=== PATIENT | female | born 1955 | race Caucasian/White ===

== ENCOUNTER 2019-09-01 15:09 | Inpatient (IN) | payer BC, MEDICARE ==
--- NOTE | 2019-09-01 15:35 | ED ---
General Adult HPI - General Chief complaint: Recheck/Abnormal Lab/Rx Stated complaint: Kidney Failure Transfer from [facility] Time Seen by Provider: 09/01/19 15:15 Source: patient, EMS Mode of arrival: EMS Limitations: no limitations - History of Present Illness Initial comments: Dictation was produced using [employer] dictation software. please excuse any grammatical, word or spelling errors. This patient was cared for during a federal and state declared state of emergency secondary to Covid 19 Chief Complaint: 64-year-old female transferred from [facility] emergency room for higher level of care. History of Present Illness: She is 64-year-old female she has past medical history of diabetes, coronary artery disease, hypertension. She presents today with abnormal labs. Patient story begins on Wednesday. She went to go visit her primary care physician for feelings of generalized weakness for the last several weeks. She had blood drawn out patiently on Wednesday. Today results were available. Patient's daughter received a phone call from the lab told her to seek medical attention immediately. She was told to go to the emergency department for concerns of kidney failure. Patient has had kidney failure in the past. She was told that perhaps it was secondary to her diabetes. Patient is not taking insulin. She takes oral medications to control her diabetes. Patient states she's been feeling weak. She denies any numbness testing or paresthesias to the extremities. She denies any focal weakness. She has no pain complaints. Patient reports that she was told that she was acting confused on multiple occasions. Patient's abnormal labs showed a creatinine of 6.1 and a BUN of 95. The ROS documented in this emergency department record has been reviewed and confirmed by me. Those systems with pertinent positive or negative responses have been documented in the HPI. All other systems are other negative and/or noncontributory. PHYSICAL EXAM: General Impression: Alert and oriented x3, not in acute distress HEENT: Normocephalic atraumatic, extra-ocular movements intact, pupils equal and reactive to light bilaterally, dry mucous membranes Cardiovascular: Heart regular rate and rhythm Chest: Able to complete full sentences, no retractions, no tachypnea Abdomen: abdomen soft, non-tender, non-distended, no organomegaly Musculoskeletal: Pulses present and equal in all extremities, no peripheral edema Motor: no focal deficits noted Neurological: CN II-XII grossly intact, no focal motor or sensory deficits noted Skin: Intact with no visualized rashes Psych: Normal affect and mood ED course: 64-year-old female presents with EMS from [facility] emergency room as a transfer for acute kidney injury. According to Dr. Mccann who received report from [facility] emergency room they had difficulty obtaining IV axis. A proceeded to place a right internal jugular central venous catheter. Chart review was performed. Does not appear that an x-ray was performed to confirm placement. EMS also reports that while en route to the emergency department patient was having low measuring blood pressures. Chart review shows a patient in 2014 was admitted for acute renal failure. Discharge summary reports that patient had acute kidney injury secondary to rand inhibitors and diuretics. At that time she did have severe hyperkalemia. Discussed patient case with Dr. Montalvo spa consultant for nephrology. Labs and patient presentation discussed with nephrology. He requests that in light of her lab abnormalities that she be started on sodium bicarbonate drip. Patient's blood pressures were trended and emergency department found to be stable. Patient be a admitted to [facility] group pending discussion with on-call hospitalist. Nephrology will be consulted. EKG interpretation: Ventricular rate 99, sinus bradycardia, DE interval 172, QRS 96, QTC 469. No DE prolongation, no QTC prolongation, no ST or T-wave changes noted. EKG compared to 09/19/2015 showing no changes. Overall, this EKG is unremarkable - Related Data Home Medications Medication Instructions Recorded Confirmed ALPRAZolam [Xanax] 0.25 mg PO BID PRN 05/07/14 09/01/19 DULoxetine HCL [Cymbalta] 60 mg PO HS 05/07/14 09/01/19 Losartan Potassium 100 mg PO DAILY 05/07/14 09/01/19 Multivitamins, Thera [Multivitamin 1 tab PO DAILY 05/07/14 09/01/19 (formulary)] Zolpidem [Ambien] 10 mg PO HS PRN 05/07/14 09/01/19 amLODIPine [Norvasc] 10 mg PO DAILY 05/07/14 09/01/19 Aspirin EC [Ecotrin] 81 mg PO DAILY 09/19/15 09/01/19 DULoxetine HCL [Cymbalta] 30 mg PO DAILY 09/01/19 09/01/19 Furosemide [Lasix] 20 mg PO DAILY 09/01/19 09/01/19 Gabapentin [Neurontin] 300 mg PO DAILY 09/01/19 09/01/19 Magnesium Oxide [Day] 500 mg PO DAILY 09/01/19 09/01/19 Metoprolol Succinate [Toprol XL] 200 mg PO DAILY 09/01/19 09/01/19 Pioglitazone [Actos] 30 mg PO HS 09/01/19 09/01/19 Rosuvastatin Calcium 10 mg PO HS 09/01/19 09/01/19 Allergies Allergy/AdvReac Type Severity Reaction Status Date / Time captopril Allergy Cough Verified 09/01/19 16:36 cephalexin monohydrate Allergy Rash/Hives Verified 09/01/19 16:36 [From Keflex] Penicillins Allergy Rash/Hives Verified 09/01/19 16:36 Review of Systems ROS Statement: Those systems with pertinent positive or pertinent negative responses have been documented in the HPI. ROS Other: All systems not noted in ROS Statement are negative. Past Medical History Past Medical History: Coronary Artery Disease (CAD), CVA/TIA, Diabetes Mellitus, GERD/Reflux, Hypertension Additional Past Medical History / Comment(s): cva 2011, arthritis, polyps, high heart ratte at times with short bursts of V tach History of Any Multi-Drug Resistant Organisms: None Reported Additional Past Surgical History / Comment(s): carotid endarct, Lumpectomy right breast, Carpel Tunnel Surgery bilat wrists, pyleonitis cyst removal, vericose vein removal Past Anesthesia/Blood Transfusion Reactions: Previous Problems w/ Anesthesia Additional Past Anesthesia/Blood Transfusion Reaction / Comment(s): had trouble waking up after surgery Past Psychological History: Anxiety Smoking Status: Former smoker Past Alcohol Use History: Occasional Past Drug Use History: None Reported - Past Family History Daughter(s) Additional Family Medical History / Comment(s): fast heart rate General Exam Limitations: no limitations Course Vital Signs 09/01/19 09/01/19 09/01/19 15:23 16:29 16:43 Temperature 97.7 F Pulse Rate 50 L 50 L 48 L Respiratory 16 18 18 Rate Blood Pressure 109/60 110/78 119/69 O2 Sat by Pulse 98 Oximetry 09/01/19 16:44 Temperature Pulse Rate Respiratory 18 Rate Blood Pressure O2 Sat by Pulse Oximetry Medical Decision Making - Lab Data Result diagrams: 09/01/19 16:42 09/01/19 16:42 Lab Results 09/01/19 09/01/19 09/01/19 Range/Units 16:42 16:42 16:42 WBC 4.1 (3.8-10.6) k/uL RBC 3.30 L (3.80-5.40) m/uL Hgb 9.4 L (11.4-16.0) gm/dL Hct 28.7 L (34.0-46.0) % MCV 86.9 (80.0-100.0) fL MCH 28.3 (25.0-35.0) pg MCHC 32.6 (31.0-37.0) g/dL RDW 14.2 (11.5-15.5) % Plt Count 201 (150-450) k/uL Neutrophils % 66 % Lymphocytes % 22 % Monocytes % 6 % Eosinophils % 3 % Basophils % 1 % Neutrophils # 2.7 (1.3-7.7) k/uL Lymphocytes # 0.9 L (1.0-4.8) k/uL Monocytes # 0.2 (0-1.0) k/uL Eosinophils # 0.1 (0-0.7) k/uL Basophils # 0.0 (0-0.2) k/uL PT 9.5 (9.0-12.0) sec INR 0.9 (<1.2) APTT 19.4 L (22.0-30.0) sec Sodium 134 L (137-145) mmol/L Potassium 4.8 (3.5-5.1) mmol/L Chloride 103 (98-107) mmol/L Carbon Dioxide 17 L (22-30) mmol/L Anion Gap 14 mmol/L BUN 95 H (7-17) mg/dL Creatinine 5.74 H (0.52-1.04) mg/dL Est GFR (CKD-EPI)AfAm 8 (>60 ml/min/1.73 sqM) Est GFR (CKD-EPI)NonAf 7 (>60 ml/min/1.73 sqM) Glucose 100 H (74-99) mg/dL Calcium 6.9 L (8.4-10.2) mg/dL Phosphorus 11.1 H* (2.5-4.5) mg/dL Magnesium 1.3 L (1.6-2.3) mg/dL Ammonia (<30) umol/L TSH 1.010 (0.465-4.680) mIU/L 09/01/19 Range/Units 16:42 WBC (3.8-10.6) k/uL RBC (3.80-5.40) m/uL Hgb (11.4-16.0) gm/dL Hct (34.0-46.0) % MCV (80.0-100.0) fL MCH (25.0-35.0) pg MCHC (31.0-37.0) g/dL RDW (11.5-15.5) % Plt Count (150-450) k/uL Neutrophils % % Lymphocytes % % Monocytes % % Eosinophils % % Basophils % % Neutrophils # (1.3-7.7) k/uL Lymphocytes # (1.0-4.8) k/uL Monocytes # (0-1.0) k/uL Eosinophils # (0-0.7) k/uL Basophils # (0-0.2) k/uL PT (9.0-12.0) sec INR (<1.2) APTT (22.0-30.0) sec Sodium (137-145) mmol/L Potassium (3.5-5.1) mmol/L Chloride (98-107) mmol/L Carbon Dioxide (22-30) mmol/L Anion Gap mmol/L BUN (7-17) mg/dL Creatinine (0.52-1.04) mg/dL Est GFR (CKD-EPI)AfAm (>60 ml/min/1.73 sqM) Est GFR (CKD-EPI)NonAf (>60 ml/min/1.73 sqM) Glucose (74-99) mg/dL Calcium (8.4-10.2) mg/dL Phosphorus (2.5-4.5) mg/dL Magnesium (1.6-2.3) mg/dL Ammonia <9 (<30) umol/L TSH (0.465-4.680) mIU/L Disposition Clinical Impression: ISABEL (acute kidney injury) Disposition: ADMITTED IP TO THIS HOSP Condition: Fair Referrals: Kristy Ortega MD [Primary Care Provider] - 1-2 days Decision Time: 18:13
[2019-09-01] MEDS ORDERED: SODIUM CHLORIDE 0.9% 1,000 ML IV STA (15:48)
--- NOTE | 2019-09-01 16:09 | CT ---
EXAMINATION TYPE: CT brain wo con DATE OF EXAM: 09/01/2019 COMPARISON: None HISTORY: ams CT DLP: 1076.[address] of the brain was performed. The ventricles, basal cisterns and sulci overlying the cerebral convexities demonstrate mild enlargem ent. There is no evidence for intracranial hemorrhage or sulcal effacement. There is decreased attenuation about the periventricular white matter and deep white matter of both c erebral hemispheres, compatible with chronic small vessel ischemia. Differential diagnosis does inclu de demyelination. No mass effects are seen.No midline shift. Osseous calvarium is intact. If symptoms persist consider MRI. IMPRESSION: 1. Age related atrophic and chronic small vessel ischemic change without acute intracranial process s een at this time.
--- NOTE | 2019-09-01 16:12 | XR ---
EXAMINATION TYPE: XR chest 1V portable DATE OF EXAM: 09/01/2019 HISTORY: Shortness of breath. COMPARISON: 05/08/2014 TECHNIQUE: Single view of the chest is submitted. FINDINGS: Demonstrated are scattered senescent parenchymal change. Right IJ central venous line with its distal tip overlying the SVC. No evidence for pneumothorax. There is no evidence for focal infiltrate. The heart is stable. Hilar and mediastinal structures are within normal limits. Degenerative changes are seen of the dorsal spine. IMPRESSION: 1. Chronic changes without evidence for acute pulmonary disease.
[2019-09-01 16:50] LABS: Basophils % (A) 1 %; Eosinophils # (A) 0.1 k/uL (0-0.7); Eosinophils % (A) 3 %; HCT 28.7 % (34.0-46.0); HGB 9.4 gm/dL (11.4-16.0); Lymphocytes # (A) 0.9 k/uL (1.0-4.8); Lymphocytes % (A) 22 %; MCH 28.3 pg (25.0-35.0); MCHC 32.6 g/dL (31.0-37.0); MCV 86.9 fL (80.0-100.0); Mean Platelet Volume 8.2; Monocytes # (A) 0.2 k/uL (0-1.0); Monocytes % (A) 6 %; Neutrophils # (A) 2.7 k/uL (1.3-7.7); Neutrophils % (A) 66 %; Platelet Count 201 k/uL (150-450); RDW 14.2 % (11.5-15.5); WBC 4.1 k/uL (3.8-10.6)
[2019-09-01 17:01] LABS: Calcium 6.9 mg/dL (8.4-10.2); Magnesium 1.3 mg/dL (1.6-2.3); Potassium 4.8 mmol/L (3.5-5.1)
[2019-09-01 17:05] LABS: Phosphorus 11.1 mg/dL (2.5-4.5)
[2019-09-01 17:07] LABS: INR 0.9 (<1.2); Prothrombin Time 9.5 sec (9.0-12.0)
[2019-09-01 17:14] LABS: Partial Thromboplastin Time 19.4 sec (22.0-30.0)
[2019-09-01] MEDS ORDERED: CALCIUM CARBONATE 500 MG CHEWABLE PO STA (17:30)
[2019-09-01] MEDS ORDERED: MAGNESIUM OXIDE 400 MG TAB PO STA (17:31)
[2019-09-01] MEDS ORDERED: DEXTROSE 5% IN WATER 1,000 ML with SODIUM BICARB (1 MEQ/ML) 150 ML IV ONE (18:00)
[2019-09-01] MEDS ORDERED: ACETAMINOPHEN TAB 325 MG TAB PO PRN (18:13)
[2019-09-01] MEDS ORDERED: ONDANSETRON 4 MG/2 ML VIAL IVP PRN (18:13)
[2019-09-01] MEDS ORDERED: NALOXONE 0.4 MG/ML 1 ML VIAL IV PRN (18:13)
[2019-09-01] MEDS ORDERED: ALPRAZolam 0.25 MG TAB PO PRN (19:28)
--- NOTE | 2019-09-01 20:10 | HP ---
HISTORY AND PHYSICAL CHIEF COMPLAINT: Kidney failure. HISTORY OF PRESENT ILLNESS: This 64-year-old woman with a past medical history of multiple medical problems, including history of CAD, CVA, TIA, diabetes mellitus, GERD, hypertension, history of arthritis, history of carotid endarterectomy, history of anxiety, being followed by Dr. Kristy Ortega in the outpatient setting, was not taking medication for the last several days. Patient apparently was taking only Ambien. The patient also was confused and having hallucinations. Patient also complained of generalized weakness. Blood was drawn yesterday in the emergency room and the patient was found to have features of renal failure. The patient was referred to [facility] and admitted for further evaluation and treatment. The patient was previously admitted in 2015 with acute renal failure related to diuretics and NICOLE inhibitors also. There is no history of headache, loss of consciousness or seizures at this time. PAST MEDICAL HISTORY: History of CAD, history of CVA, TIA, diabetes mellitus, GERD, hypertension, history of carotid endarterectomy, history of anxiety. HOME MEDICATIONS: 1. Neurontin 300 mg p.o. daily. 2. Crestor 10 mg p.o. at bedtime. 3. Actos 30 mg at bedtime. 4. Toprol-XL 200 mg p.o. daily. 5. Lasix 20 mg p.o. daily. 6. Cymbalta 30 mg p.o. daily. 7. Ambien. 8. Multivitamins. 9. Magnesium oxide. 10.Losartan. 11.Cymbalta. 12.Norvasc. 13.Ecotrin. 14.Xanax. Doses are reviewed. ALLERGIES: CAPTOPRIL and KEFLEX and PENICILLIN. FAMILY HISTORY: History of fast heart rate in the family. SOCIAL HISTORY: Previous history of smoking. No current smoking or alcohol intake. REVIEW OF SYSTEMS: ENT: No diminished hearing. No diminished vision. CARDIOVASCULAR SYSTEM: As mentioned earlier. RESPIRATORY SYSTEM: As mentioned earlier. GI: No nausea, vomiting. : No dysuria or retention. NERVOUS SYSTEM: As mentioned earlier. ALLERGY/IMMUNOLOGY: No asthma, hayfever. MUSCULOSKELETAL: As mentioned earlier. HEMATOLOGY/ONCOLOGY: No history of anemia. ENDOCRINE: As mentioned earlier. CONSTITUTIONAL: As mentioned earlier. DERMATOLOGY: Negative. RHEUMATOLOGY: Negative. PSYCHIATRY: As mentioned earlier. PHYSICAL EXAMINATION: Patient alert and oriented x3. Pulse 51, blood pressure 159/67, respirations 16, temperature 97.4, pulse ox 100% on one liter. HEENT: Conjunctivae normal. Oral mucosa dry. NECK: No jugular venous distention. No carotid bruit. No lymph node enlargement. CARDIOVASCULAR SYSTEM: S1, S2 muffled. No S3. No S4. RESPIRATORY SYSTEM: Breath sounds diminished at the bases. A few scattered rhonchi. No crackles. ABDOMEN: Soft, non-tender. LEGS: Bilateral leg edema. NERVOUS SYSTEM: Higher functions as mentioned earlier. Moves all 4 limbs. No focal motor or sensory deficit. LYMPHATICS: No lymph node palpable in neck, axillae or groin. SKIN: No ulcer, rash, bleeding. JOINTS: No active deforming arthropathy. LABS: WBC 4.1, hemoglobin 9.4. Sodium 134, potassium 4.8, creatinine 5.74, glucose 100, calcium 6.9, phosphorus 11.1, magnesium 1.3. ASSESSMENT: 1. Acute renal failure with possible acute tubular necrosis and prerenal factors. 2. Hyponatremia. 3. Metabolic acidosis secondary to renal failure. 4. Hypocalcemia. 5. Hypophosphatemia. 6. Hypomagnesemia. 7. Anemia, normocytic. 8. History of noncompliance. 9. History of coronary artery disease. 10.History of cerebrovascular accident, transient ischemic attack. 11.Diabetes mellitus, type 2. 12.History of gastroesophageal reflux disease. 13.History of hypertension. 14.History of degenerative joint disease. 15.History of polyps. 16.History of tachycardia as well as a short burst of ventricular tachycardia. 17.History of carotid endarterectomy. 18.History of lumpectomy. 19.History of anxiety. 20.Remote history of nicotine dependence. 21.Obesity with body mass index of 33.9. 22.FULL CODE. RECOMMENDATIONS AND DISCUSSION: In this 64-year-old woman who presented with multiple complex medical issues, we will monitor the patient closely, continue the current medications, continue with symptomatic treatment. Will initiate home medications. Avoid nephrotoxic medications. Cautious IV fluids. Bicarb drip. Nephrology consultation. Monitor potassium closely. Monitor magnesium closely. Overall prognosis guarded because of multiple complex medical issues. Further recommendations to follow. A copy of this dictation is being forwarded to Dr. Kristy Ortega, who is the primary physician. We will hold the Lasix and losartan at this time. Further recommendations to follow. We will continue with Accu-Cheks before meals and at bedtime. Metoprolol will be continued. See orders for further details. MMODL / IJN: [id number] /
[2019-09-01 21:11] LABS: Glucose,Whole Blood 87 mg/dL (75-99)
[2019-09-01 22:16] LABS: Amorphous Sediment,Urine Occasional /hpf; Appearance,Urine Cloudy (Clear); Bacteria,Urine Rare /hpf; Bilirubin,Urine Negative (Negative); Blood,Urine Negative (Negative); Color,Urine Yellow; Glucose,Urine (UA) Negative (Negative); Ketones,Urine Negative (Negative); Leukocyte Esterase,Urine Moderate (Negative); Mucus,Urine Rare /hpf; Nitrite,Urine Negative (Negative); PH, Urine 5.5 (5.0-8.0); Protein,Urine 2+ (Negative); RBC,Urine 3 /hpf (0-5); Specific Gravity,Urine 1.013 (1.001-1.035); Squamous Epithelial Cell,Urine 5 /hpf (0-4); Urobilinogen,Urine <2.0 mg/dL (<2.0); WBC,Urine 3 /hpf (0-5)
[2019-09-02 06:14] LABS: Glucose,Whole Blood 125 mg/dL (75-99)
[2019-09-02] MEDS ORDERED: DEXTROSE 5% IN WATER 1,000 ML with SODIUM BICARB (1 MEQ/ML) 150 ML IV SCH (08:00)
[2019-09-02 08:37] LABS: Basophils % (A) 0 %; Eosinophils # (A) 0.1 k/uL (0-0.7); Eosinophils % (A) 2 %; HCT 28.2 % (34.0-46.0); HGB 9.2 gm/dL (11.4-16.0); Lymphocytes # (A) 0.9 k/uL (1.0-4.8); Lymphocytes % (A) 21 %; MCH 28.6 pg (25.0-35.0); MCHC 32.6 g/dL (31.0-37.0); MCV 87.6 fL (80.0-100.0); Mean Platelet Volume 8.2; Monocytes # (A) 0.3 k/uL (0-1.0); Monocytes % (A) 6 %; Neutrophils # (A) 2.9 k/uL (1.3-7.7); Neutrophils % (A) 69 %; Platelet Count 192 k/uL (150-450); RBC 3.22 m/uL (3.80-5.40); RDW 14.2 % (11.5-15.5); WBC 4.2 k/uL (3.8-10.6)
[2019-09-02 08:49] LABS: Calcium 7.1 mg/dL (8.4-10.2); Potassium 4.5 mmol/L (3.5-5.1)
--- NOTE | 2019-09-02 08:55 | P.NPCON ---
History of Present Illness - Reason for Consult acute renal failure - History of Present Illness Reason for consultation: Acute kidney injury History of present illness: Patient is a 64-year-old female seen in renal consultation for acute kidney injury. Patient's creatinine in September 2015 was 0.9. It was elevated at 5.74 on admission. Patient states she had blood work an outpatient and was advised by h primary care physician to go to the hospital due to renal failure. Patient states she has been voiding although she does have urgency. Denies hematuria or dysuria. Denies edema. Denies vomiting. Does admit to 1-2 loose bowel movements last few days. She denies regular use of nonsteroidals but states she takes quite a bit of Tylenol for pain. she was taking Lasix as well as losartan outpatient. Both of those are currently held. she was noted to be acidotic on admission with a bicarb level of 17. She is currently maintained on bicarb drip. Magnesium was low and was given oral magnesium oxide. Additionally her phosphorus was critically elevated at 11.1. 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 Vital signs are stable. General: The patient appeared well nourished and normally developed. HEENT: Head exam is unremarkable. Neck is without jugular venous distension. LUNGS: Lungs are clear to auscultation and percussion. Breath sounds decreased. HEART: Rate and Rhythm are regular. ABDOMEN: Soft, nontender. EXTREMITITES: No clubbing, cyanosis, or edema. Past Medical History Past Medical History: Coronary Artery Disease (CAD), CVA/TIA, Diabetes Mellitus, GERD/Reflux, Hypertension Additional Past Medical History / Comment(s): cva 2012, arthritis, polyps, high heart ratte at times with short bursts of V tach History of Any Multi-Drug Resistant Organisms: None Reported Additional Past Surgical History / Comment(s): carotid endarct, Lumpectomy right breast, Carpel Tunnel Surgery bilat wrists, pyleonitis cyst removal, vericose vein removal Past Anesthesia/Blood Transfusion Reactions: Previous Problems w/ Anesthesia Additional Past Anesthesia/Blood Transfusion Reaction / Comment(s): had trouble waking up after surgery Past Psychological History: Anxiety Smoking Status: Former smoker Past Alcohol Use History: Occasional Past Drug Use History: None Reported - Past Family History Daughter(s) Additional Family Medical History / Comment(s): fast heart rate Medications and Allergies Home Medications Medication Instructions Recorded Confirmed Type ALPRAZolam [Xanax] 0.25 mg PO BID PRN 05/07/14 09/01/19 History DULoxetine HCL [Cymbalta] 60 mg PO HS 05/07/14 09/01/19 History Losartan Potassium 100 mg PO DAILY 05/07/14 09/01/19 History Multivitamins, Thera [Multivitamin 1 tab PO DAILY 05/07/14 09/01/19 History (formulary)] Zolpidem [Ambien] 10 mg PO HS PRN 05/07/14 09/01/19 History amLODIPine [Norvasc] 10 mg PO DAILY 05/07/14 09/01/19 History Aspirin EC [Ecotrin] 81 mg PO DAILY 09/19/15 09/01/19 History DULoxetine HCL [Cymbalta] 30 mg PO DAILY 09/01/19 09/01/19 History Furosemide [Lasix] 20 mg PO DAILY 09/01/19 09/01/19 History Gabapentin [Neurontin] 300 mg PO DAILY 09/01/19 09/01/19 History Magnesium Oxide [Day] 500 mg PO DAILY 09/01/19 09/01/19 History Metoprolol Succinate [Toprol XL] 200 mg PO DAILY 09/01/19 09/01/19 History Pioglitazone [Actos] 30 mg PO HS 09/01/19 09/01/19 History Rosuvastatin Calcium 10 mg PO HS 09/01/19 09/01/19 History Allergies Allergy/AdvReac Type Severity Reaction Status Date / Time captopril Allergy Cough Verified 09/01/19 16:36 cephalexin monohydrate Allergy Rash/Hives Verified 09/01/19 16:36 [From Keflex] Penicillins Allergy Rash/Hives Verified 09/01/19 16:36 Physical Exam Vitals: Vital Signs Temp Pulse Pulse Resp BP BP Pulse Ox 09/02/19 04:00 97.6 F 53 L 20 115/57 97 09/02/19 00:00 97.5 F L 51 L 18 95/51 93 L 09/01/19 22:00 97.5 F L 50 L 20 140/66 100 09/01/19 21:00 98.2 F 51 L 18 117/78 97 09/01/19 18:54 97.5 F L 51 L 16 115/67 100 09/01/19 16:44 18 09/01/19 16:43 48 L 18 119/69 09/01/19 16:29 50 L 18 110/78 09/01/19 15:23 97.7 F 50 L 16 109/60 98 Intake and Output 09/01/19 09/02/19 09/02/19 22:59 06:59 14:59 Intake Total 240 240 Output Total 700 300 Balance -460 -60 Intake: Oral 240 240 Output: Urine 700 300 Other: # Voids 1 # Bowel Movements 1 Weight 101.151 kg 99.5 kg Results - Lab Results Most recent lab results Calcium 6.9 mg/dL (8.4-10.2) L 09/01/19 16:42 Phosphorus 11.1 mg/dL (2.5-4.5) H* 09/01/19 16:42 Magnesium 1.3 mg/dL (1.6-2.3) L 09/01/19 16:42 09/02/19 07:46 09/01/19 16:42 Assessment and Plan Plan: Assessment: 1. Acute kidney injury versus chronic kidney disease. Creatinine 5.74 on admission - 0.9 in September 2015. she does have proteinuria on UA. This is likely due to diabetic kidney disease. Rule out GN. 2. Metabolic acidosis secondary to acute kidney injury. 3. Hyperphosphatemia secondary to acute kidney injury. 4. Hypomagnesemia secondary to diuretic and GI losses. 5. Anemia of chronic kidney disease. Rule out iron deficiency. 6. Benign hypertension. Blood pressure on the lower side. Plan: Maintain bicarb drip for now. If acidosis improved, I will change to normal saline. Check renal ultrasound. Quantify proteinuria and check serologies. Add PhosLo with meals. Obtain records from PCP to assess baseline renal function. Continue to monitor renal function and urine output. Check iron studies. Hold amlodipine systolic blood pressure less than 120. Thank you for the consultation. I will continue to follow patient with you during her hospital stay.
--- NOTE | 2019-09-02 10:01 | US ---
EXAMINATION TYPE: US kidneys/renal and bladder DATE OF EXAM: 09/02/2019 COMPARISON: NONE CLINICAL HISTORY: isabel. ISABEL EXAM MEASUREMENTS: Right Kidney: 12.7 x 6.0 x 5.8 cm Left Kidney: 12.0 x 5.7 x 5.4 cm Right Kidney: perinephric fat noted Left Kidney: perinephric fat noted, cystic area lower pole = 1.4 x 1.0 x 1.1cm Bladder: not fully distended Bilateral Jets seen: no IMPRESSION: LEFT LOWER POLE RENAL CYST.
[2019-09-02] MEDS: MAGNESIUM OXIDE 400 MG TAB PO SCH (10:09)
[2019-09-02] MEDS: MULTIVITAMINS, THERA 1 EACH TAB PO SCH (10:10)
[2019-09-02] MEDS: ASPIRIN 81 MG PO SCH (10:10)
[2019-09-02] MEDS: PANTOPRAZOLE 40 MG/10 ML VIAL IV SCH (10:10)
[2019-09-02] MEDS: METOPROLOL SUCCINATE (ER) 100 MG TAB.ER.24H PO SCH (10:10)
[2019-09-02] MEDS: amLODIPine 10 MG TAB PO SCH (10:10)
[2019-09-02] MEDS ORDERED: Magnesium Replacement Protocol 1 EACH MISC MISCELLANE PRN ×2 (10:57→19:30)
[2019-09-02 11:33] LABS: Glucose,Whole Blood 179 mg/dL (75-99)
[2019-09-02] MEDS: SODIUM CHLORIDE 0.9% 1,000 ML IV SCH ×2 (12:52→23:22)
[2019-09-02] MEDS: CALCIUM ACETATE 667 MG TAB PO SCH ×2 (12:59→17:10)
[2019-09-02] MEDS: SODIUM BICARBONATE TAB 650 MG TAB PO SCH ×2 (12:59→21:00)
[2019-09-02 16:35] LABS: Glucose,Whole Blood 202 mg/dL (75-99)
[2019-09-02 17:15] LABS: Protein, Total 5.4 g/dL (6.2-8.2)
[2019-09-02 17:25] LABS: Ferritin 83.6 ng/mL (10.0-291.0)
[2019-09-02 17:33] LABS: % Iron Saturation 8.64 (12.00-45.00)
[2019-09-02 18:13] LABS: Hepatitis A Antibody IgM Non-Reactive (Non-Reactive); Hepatitis B Core IgM Non-Reactive (Non-Reactive); Hepatitis B Surface Antigen Non-Reactive (Non-Reactive); Hepatitis C IgG Antibody Non-Reactive (Non-Reactive)
[2019-09-02 20:06] LABS: Glucose,Whole Blood 140 mg/dL (75-99)
[2019-09-02] MEDS: MAGNESIUM SULFATE-D5W PMX 1 GM in DEXTROSE/WATER 1 100ML.BAG IVPB SCH ×3 (21:00→23:22)
--- NOTE | 2019-09-02 23:32 | PN ---
PROGRESS NOTE DATE OF SERVICE: 09/02/2019 This 64-year-old woman was admitted with acute renal failure and possible acute tubular necrosis, is being closely monitored. Dr. Montalvo is following the patient closely. Abdominal ultrasound was done which showed left lower pole renal cyst. The patient is on cautious IV fluids. Chronic kidney disease is a possibility. The creatinine was elevated previously. PAST MEDICAL HISTORY: Reviewed. PHYSICAL EXAMINATION: Patient is alert, oriented x3. Pulse 58, blood pressure 100/49, respiration 18, temp 97.9, pulse ox 94% on room air. HEENT: Conjunctivae normal. Oral mucosa moist. NECK: No jugular venous distention. No lymph node enlargement. CARDIOVASCULAR: S1, S2, muffled. No S3, no S4, RESPIRATORY: Diminished breath sounds at the bases. A few scattered rhonchi and crackles. ABDOMEN: Soft, nontender. LEGS: No edema, no swelling. NERVOUS SYSTEM: No focal deficits. LABS: WBC 4.2, hemoglobin 9.2, sodium 130, potassium 4.5, creatinine 5.03, calcium 7.1, magnesium 1.3. . REVIEW OF SYSTEMS: CARDIOVASCULAR: No angina. RESPIRATORY: As mentioned earlier. GI: As mentioned earlier. : No dysuria. NERVOUS SYSTEM: No numbness or weakness. CURRENT MEDICATIONS: 1. Tylenol p.r.n. 2. Xanax. 3. Norvasc. 4. Aspirin. 5. PhosLo. 6. Magnesium oxide. 7. Toprol-XL. 8. Multivitamins. 9. Narcan. 10.Zofran. 11.Protonix. Doses reviewed. ASSESSMENT: 1. Acute renal failure with possible acute tubular necrosis prerenal factors, rule out underlying chronic kidney disease. 2. Hyponatremia. 3. Metabolic acidosis secondary to renal failure. 4. Hypocalcemia. 5. Hypophosphatemia. 6. Hypomagnesemia. 7. Anemia, normocytic. 8. History of noncompliance. 9. History of coronary artery disease. 10.History of cerebrovascular accident and transient ischemic attack. 11.Diabetes type 2. 12.History of gastroesophageal reflux disease. 13.Hypertension. 14.History of degenerative joint disease. 15.History of polyps. 16.History of tachycardia as well as short bursts of ventricular tachycardia. 17.History of carotid endarterectomy. 18.History of lumpectomy. 19.History of anxiety. 20.Remote history of nicotine dependence. 21.Hypomagnesemia. 22.Obesity with body mass index of 33.9. 23.FULL CODE. RECOMMENDATIONS AND DISCUSSION: Recommend to continue current management and symptomatic treatment with IV fluids. Continue the rest of medication. Monitor labs and the creatinine yesterday was 5.7, today it is 5.03. We will check the phosphorus as well. Magnesium is persistent. Hepatitis panel is negative. The UA was noted, shows some amorphous sediment. I would recommend a urine culture and continue to monitor. Prognosis guarded because of multiple complex medical issues. Further recommendations to follow. The morning labs are ordered. MMODL / IJN: [id number] /
[2019-09-03 05:49] LABS: Protein/Creatinine Ratio,Urine 2.409
[2019-09-03 06:25] LABS: Glucose,Whole Blood 153 mg/dL (75-99)
[2019-09-03] MEDS: CALCIUM ACETATE 667 MG TAB PO SCH ×3 (06:50→16:51)
[2019-09-03 06:53] LABS: Basophils % (A) 0 %; Calcium 7.6 mg/dL (8.4-10.2); Eosinophils # (A) 0.1 k/uL (0-0.7); Eosinophils % (A) 2 %; HCT 27.1 % (34.0-46.0); HGB 8.9 gm/dL (11.4-16.0); Lymphocytes # (A) 0.9 k/uL (1.0-4.8); Lymphocytes % (A) 23 %; MCH 28.5 pg (25.0-35.0); MCHC 32.7 g/dL (31.0-37.0); MCV 87.1 fL (80.0-100.0); Mean Platelet Volume 8.3; Monocytes # (A) 0.3 k/uL (0-1.0); Monocytes % (A) 7 %; Neutrophils # (A) 2.6 k/uL (1.3-7.7); Neutrophils % (A) 65 %; Platelet Count 165 k/uL (150-450); Potassium 4.4 mmol/L (3.5-5.1); RBC 3.11 m/uL (3.80-5.40); RDW 14.1 % (11.5-15.5); Total Bilirubin 0.3 mg/dL (0.2-1.3); Total Protein 5.6 g/dL (6.3-8.2)
[2019-09-03] MEDS: ASPIRIN 81 MG PO SCH (08:13)
[2019-09-03] MEDS: amLODIPine 10 MG TAB PO SCH (08:13)
[2019-09-03] MEDS: PANTOPRAZOLE 40 MG/10 ML VIAL IV SCH (08:13)
[2019-09-03] MEDS: SODIUM BICARBONATE TAB 650 MG TAB PO SCH ×2 (08:13→21:25)
[2019-09-03] MEDS: MAGNESIUM OXIDE 400 MG TAB PO SCH (08:13)
[2019-09-03] MEDS: MULTIVITAMINS, THERA 1 EACH TAB PO SCH (08:13)
[2019-09-03] MEDS: METOPROLOL SUCCINATE (ER) 100 MG TAB.ER.24H PO SCH (08:13)
--- NOTE | 2019-09-03 08:51 | P.PN ---
Subjective Patient is seen in follow-up for acute kidney injury. Patient was last seen in the office in 2016 and at that time her creatinine was near 1. This admission creatinine was 5.74 and is down to 4.21 today. She is maintained on IV fluids. Oral intake is good. No nausea or vomiting. No edema. Vital signs are stable. General: The patient appeared well nourished and normally developed. HEENT: Head exam is unremarkable. Neck is without jugular venous distension. LUNGS: Lungs are clear to auscultation and percussion. Breath sounds decreased. HEART: Rate and Rhythm are regular. ABDOMEN: Soft, nontender. EXTREMITITES: No clubbing, cyanosis, or edema. Objective - Vital Signs Vital signs: Vital Signs Temp 97.5 F L 09/02/19 23:00 Pulse 55 L 09/02/19 23:00 Resp 18 09/02/19 23:00 BP 138/76 09/02/19 23:00 Pulse Ox 96 09/02/19 23:00 Intake & Output 09/02/19 09/03/19 09/03/19 18:59 06:59 18:59 Intake Total 837 240 Output Total 900 900 Balance -63 -660 Weight 100.2 kg Intake: Oral 837 240 Output: Urine 900 900 Other: # Voids 1 1 # Bowel Movements 1 1 - Labs CBC & Chem 7: 09/03/19 06:07 09/03/19 06:07 Labs: Abnormal Lab Results - Last 24 Hours (Table) 09/02/19 09/02/19 09/02/19 Range/Units 07:46 07:53 09:51 RBC (3.80-5.40) m/uL Hgb (11.4-16.0) gm/dL Hct (34.0-46.0) % Lymphocytes # (1.0-4.8) k/uL Carbon Dioxide 21 L (22-30) mmol/L BUN 94 H (7-17) mg/dL Creatinine 5.03 H (0.52-1.04) mg/dL Glucose 120 H (74-99) mg/dL POC Glucose (mg/dL) (75-99) mg/dL Calcium 7.1 L (8.4-10.2) mg/dL Magnesium (1.6-2.3) mg/dL Iron 28 L (50-170) ug/dL % Saturation 8.64 L (12.00-45.00) AST (14-36) U/L Total Protein (6.3-8.2) g/dL Total Protein (PEP) 5.4 L (6.2-8.2) g/dL Albumin (3.5-5.0) g/dL 09/02/19 09/02/19 09/02/19 Range/Units 09:51 11:31 16:34 RBC (3.80-5.40) m/uL Hgb (11.4-16.0) gm/dL Hct (34.0-46.0) % Lymphocytes # (1.0-4.8) k/uL Carbon Dioxide (22-30) mmol/L BUN (7-17) mg/dL Creatinine (0.52-1.04) mg/dL Glucose (74-99) mg/dL POC Glucose (mg/dL) 179 H 202 H (75-99) mg/dL Calcium (8.4-10.2) mg/dL Magnesium 1.3 L (1.6-2.3) mg/dL Iron (50-170) ug/dL % Saturation (12.00-45.00) AST (14-36) U/L Total Protein (6.3-8.2) g/dL Total Protein (PEP) (6.2-8.2) g/dL Albumin (3.5-5.0) g/dL 09/02/19 09/03/19 09/03/19 Range/Units 20:04 06:07 06:07 RBC 3.11 L (3.80-5.40) m/uL Hgb 8.9 L (11.4-16.0) gm/dL Hct 27.1 L (34.0-46.0) % Lymphocytes # 0.9 L (1.0-4.8) k/uL Carbon Dioxide (22-30) mmol/L BUN 82 H (7-17) mg/dL Creatinine 4.21 H (0.52-1.04) mg/dL Glucose 144 H (74-99) mg/dL POC Glucose (mg/dL) 140 H (75-99) mg/dL Calcium 7.6 L (8.4-10.2) mg/dL Magnesium (1.6-2.3) mg/dL Iron (50-170) ug/dL % Saturation (12.00-45.00) AST 11 L (14-36) U/L Total Protein 5.6 L (6.3-8.2) g/dL Total Protein (PEP) (6.2-8.2) g/dL Albumin 3.0 L (3.5-5.0) g/dL 09/03/19 Range/Units 06:23 RBC (3.80-5.40) m/uL Hgb (11.4-16.0) gm/dL Hct (34.0-46.0) % Lymphocytes # (1.0-4.8) k/uL Carbon Dioxide (22-30) mmol/L BUN (7-17) mg/dL Creatinine (0.52-1.04) mg/dL Glucose (74-99) mg/dL POC Glucose (mg/dL) 153 H (75-99) mg/dL Calcium (8.4-10.2) mg/dL Magnesium (1.6-2.3) mg/dL Iron (50-170) ug/dL % Saturation (12.00-45.00) AST (14-36) U/L Total Protein (6.3-8.2) g/dL Total Protein (PEP) (6.2-8.2) g/dL Albumin (3.5-5.0) g/dL Assessment and Plan Plan: Assessment: 1. Acute kidney injury versus chronic kidney disease. Creatinine 5.74 on admission - 4.21 today; 0.9 in September 2015. She does have proteinuria on UA. This is likely due to diabetic kidney disease. Rule out GN - UPC 2.4 g. No hydronephrosis noted on kidney ultrasound. 2. Metabolic acidosis secondary to acute kidney injury. Better. 3. Hyperphosphatemia secondary to acute kidney injury Maintained on PhosLo. 4. Hypomagnesemia secondary to diuretic and GI losses. Better. 5. Anemia of chronic kidney disease. Iron deficiency noted. 6. Benign hypertension. Controlled. Plan: Maintain normal saline. Follow-up serologies - will consider kidney biopsy pending results. Obtain records from PCP to assess baseline renal function. Continue to monitor renal function and urine output. IV iron 3 doses. First dose today. Hold amlodipine systolic blood pressure less than 120.
[2019-09-03] MEDS: SODIUM FERRIC GLUCONAT-SUCROSE 125 MG in SODIUM CHLORIDE 0.9% 100 ML IVPB SCH (09:55)
[2019-09-03 11:32] LABS: Glucose,Whole Blood 173 mg/dL (75-99)
[2019-09-03] MEDS: SODIUM CHLORIDE 0.9% 1,000 ML IV SCH ×3 (12:36→23:51)
--- NOTE | 2019-09-03 16:39 | PN ---
PROGRESS NOTE DATE OF SERVICE: 09/03/2019 This 64-year-old woman was admitted with acute renal failure and acute tubular necrosis, is being closely monitored. The abdominal ultrasound showed only renal cyst. Patient closely monitored. Creatinine is still elevated 4.1, potassium 4.2, sodium is 138, hemoglobin is 8.9. Nephrology following the patient closely. Most recent is not available. Past medical history reviewed. REVIEW OF SYSTEMS: Cardiovascular system: No angina or palpitations. RESPIRATORY: As mentioned earlier. GI no nausea. no dysuria. NERVOUS SYSTEM: No numbness/weakness. CURRENT MEDICATIONS: Reviewed and include: Tylenol 650 q.6 p.r.n., Xanax 0.25 t.i.d., Norvasc 10 mg, Aspirin 81 mg, PhosLo 667 t.i.d., iron sulfate, magnesium oxide, Toprol-XL, replacement protocol Narcan, Zofran, Protonix and sodium bicarb. PHYSICAL EXAM: Patient is alert and oriented times three. Pulse 54, blood pressure 140/66, respiration 18, temperature 97.8, pulse ox 94% on room air. HEENT is conjunctivae normal. Oral mucosa moist. Neck is no jugular venous distention. No carotid bruit. No lymph node enlargement. Cardiovascular: S1, S2 muffled. Respirations: Breath sounds diminished in the bases. A few scattered rhonchi and crackles. ABDOMEN: Soft, nontender. No mass palpable. LEGS: No edema. No swelling. NERVOUS SYSTEM: Higher functions as mentioned earlier. Moves all four limbs. No focal or motor deficits. Lymphatics: No lymph nodes palpable in the neck, axillae or groin. SKIN: No ulcers, rashes or bleeding. JOINTS: No active deforming arthropathy. LAB: WBC 4, hemoglobin is 8.9, sodium 130, potassium 4.3, creatinine 4.21. ASSESSMENT: 1. Acute renal failure with possible acute tubular necrosis with prerenal factors, rule out underlying chronic kidney disease. 2. Hyponatremia. 3. Renal cyst. 4. Metabolic acidosis secondary to renal failure. 5. Hypocalcemia. 6. Hyperphosphatemia. 7. Hypomagnesemia. 8. Anemia, normocytic. 9. History of noncompliance. 10.History of coronary artery disease. 11.Cerebrovascular accident/transient ischemic attack. 12.Diabetes mellitus type 2. 13.History of gastroesophageal reflux disease. 14.Hypertension. 15.History of degenerative joint disease. 16.History of polyps. 17.History of tachycardia as well as persistent ventricular tachycardia. 18.History of carotid endarterectomy. 19.History of lumpectomy. 20.History of anxiety. 21.Remote history of nicotine dependence. 22.Hypomagnesemia. 23.Obesity with body mass index of 33.9. 24.FULL CODE. RECOMMENDATIONS AND DISCUSSION: I recommend to continue current medications, and symptomatic treatment. At this time, closely with Nephrology. Continue with IV fluids. Sodium bicarb. I would also recommend a CT scan of the abdomen/pelvis to complete the workup. Renal cyst noted in the ultrasound without any obstruction. We will continue to monitor. Further recommendations to follow. MMODL / IJN: [id number] / MTDD
[2019-09-03 16:45] LABS: Glucose,Whole Blood 140 mg/dL (75-99)
[2019-09-03] MEDS: IOPAMIDOL CONTRAST (ORAL USE) VIAL PO PRN ×2 (16:49→17:44)
--- NOTE | 2019-09-03 18:38 | CT ---
EXAMINATION TYPE: CT abdomen pelvis wo con DATE OF EXAM: 09/03/2019 COMPARISON: None HISTORY: ABDOMINAL PAIN CT DLP: 1128.4 mGycm Automated exposure control for dose reduction was used. There is oral contrast. There is some mild pleural thickening at the left lung base. There is some scarring and atelectasis l eft lung base. Heart size is fairly normal. There is no pericardial effusion. Liver and spleen appear normal. Bile ducts are not dilated. There is no pancreatic mass. There is irregular wall thickening of the duodenum. There is 13 mm contrast collection on the right lateral aspect of the proximal duode num adjacent to the gallbladder that could be an ulcer crater or diverticulum. There is no evidence o f free air. There is 4.5 cm low-density right adrenal mass consistent with benign disease. The kidneys have melany l size. There is no hydronephrosis. There is some bilateral perinephric fluid. There is no retroperit rivera adenopathy. Ureters are not dilated. Urinary bladder is intact. Uterus is anteverted and there is probably 4 cm exophytic uterine fibroid on the right side of the fundus of the uterus. The appendi x is posterior and appears normal. I see no mesenteric edema. There is no sign of a bowel obstruction . There is no ascites. There is multilevel lumbar spondylotic changes. There is no compression fractu re. Bony pelvis is intact. There is some degenerative cyst formation in the right acetabulum. IMPRESSION: Contrast collection adjacent to the duodenum could be a diverticulum or ulcer. Mild scarring and subsegmental atelectasis left lung base. Low-density right adrenal mass suggestive of benign disease. Bilateral perinephric fat stranding of uncertain significance. No renal mass or obstruction.
[2019-09-03 20:36] LABS: Glucose,Whole Blood 161 mg/dL (75-99)
[2019-09-04 07:03] LABS: Glucose,Whole Blood 156 mg/dL (75-99)
[2019-09-04 08:46] LABS: Basophils % (A) 0 %; Eosinophils # (A) 0.1 k/uL (0-0.7); Eosinophils % (A) 2 %; HCT 29.5 % (34.0-46.0); HGB 9.6 gm/dL (11.4-16.0); Lymphocytes # (A) 0.7 k/uL (1.0-4.8); Lymphocytes % (A) 17 %; MCH 28.6 pg (25.0-35.0); MCHC 32.5 g/dL (31.0-37.0); Mean Platelet Volume 8.2; Monocytes # (A) 0.3 k/uL (0-1.0); Monocytes % (A) 7 %; Neutrophils % (A) 72 %; Platelet Count 193 k/uL (150-450); RBC 3.35 m/uL (3.80-5.40); RDW 14.2 % (11.5-15.5); WBC 4.1 k/uL (3.8-10.6)
[2019-09-04 08:54] LABS: Calcium 8.8 mg/dL (8.4-10.2); Magnesium 1.8 mg/dL (1.6-2.3); Phosphorus 5.2 mg/dL (2.5-4.5); Potassium 4.7 mmol/L (3.5-5.1)
[2019-09-04] MEDS: METOPROLOL SUCCINATE (ER) 100 MG TAB.ER.24H PO SCH (09:51)
[2019-09-04] MEDS: CALCIUM ACETATE 667 MG TAB PO SCH ×3 (09:51→18:31)
[2019-09-04] MEDS: SODIUM FERRIC GLUCONAT-SUCROSE 125 MG in SODIUM CHLORIDE 0.9% 100 ML IVPB SCH (09:51)
[2019-09-04] MEDS: amLODIPine 10 MG TAB PO SCH (09:51)
[2019-09-04] MEDS: PANTOPRAZOLE 40 MG TABLET PO SCH (09:52)
[2019-09-04] MEDS: MAGNESIUM OXIDE 400 MG TAB PO SCH (09:52)
[2019-09-04] MEDS: SODIUM BICARBONATE TAB 650 MG TAB PO SCH ×2 (09:52→20:41)
[2019-09-04] MEDS: MULTIVITAMINS, THERA 1 EACH TAB PO SCH (09:52)
[2019-09-04] MEDS: ASPIRIN 81 MG PO SCH (09:52)
[2019-09-04 11:45] LABS: Glucose,Whole Blood 212 mg/dL (75-99)
[2019-09-04 13:19] LABS: Anti-DNA, DS unit <1.0 IU/mL; DNA Double-Stranded NEGATIVE (NEGATIVE)
[2019-09-04 14:41] LABS: C-ANCA <1:20 Titer (<1:20)
--- NOTE | 2019-09-04 16:20 | PN ---
PROGRESS NOTE Patient is seen for followup for acute kidney injury. Renal function is currently improved, with creatinine going down to 3.43 from 5.7 on initial admission. Overall patient states she is feeling better. PHYSICAL EXAMINATION: On examination today, blood pressure was 165/83, heart rate 57 per minute. She is afebrile. EXAMINATION OF THE HEART: S1 and S2. EXAMINATION OF LUNGS: Bilateral breath sounds are heard. ABDOMEN: Soft, non-tender. Examination of lower extremities shows no significant edema. MUFF WINDER exam is grossly intact. LABS: Labs show sodium 140, potassium 4.7, chloride 110. CO2 is 22, BUN 68, creatinine 3.43. ASSESSMENT: 1. Acute kidney injury, prerenal, currently improved with IV fluids. Serum creatinine was 5.7 on initial admission, now at 3.43 mg/dL. 2. Chronic kidney disease. Previous creatinine 0.9 in September 2015 with presence of proteinuria, most likely secondary to diabetic nephropathy. Urine protein/creatinine ratio was 2.4. No evidence of hydronephrosis on the ultrasound. 3. Metabolic acidosis secondary to acute kidney injury, currently improved. 4. Hyperphosphatemia associated with renal failure, maintained on PhosLo. 5. Hypomagnesemia secondary to gastrointestinal fluid loss and diuresis, status post replacement. 6. Anemia of chronic disease with iron deficiency. Patient will receive her second dose of IV iron today. PLAN: Encourage increased oral intake. Repeat labs in a.m. Continue to avoid nephrotoxic agents. So far serologies are negative. Patient will need followup as outpatient in about one week's time post discharge. MMODL / IJN: [id number] /
[2019-09-04 16:55] LABS: Glucose,Whole Blood 256 mg/dL (75-99)
[2019-09-04 20:43] LABS: Glucose,Whole Blood 177 mg/dL (75-99)
[2019-09-04] MEDS: SODIUM CHLORIDE 0.9% 1,000 ML IV SCH (23:52)
[2019-09-05 01:30] VITALS: PULSE 68; RESP 18
--- NOTE | 2019-09-05 06:03 | P.PN ---
Subjective Progress Note Date: 09/04/19 Principal diagnosis: This is a 64 year old female who was recently admitted with acute renal failure with acute tubular necrosis and is being closely monitored. Nephrology following closely. Patient is maintained on sodium bicarbonate tablets along with gentle IV fluids and will continue at this time. Creatinine today is slowly trending down and is 3.43 with a BUN of 68, Potassium is 4.7 with a sodium of 140. Will repeat am labs. Patient is receiving iron infusion today. Blood sugars remain elevated and will continue to monitor closely. Sliding scale to continue. Patient underwent a CT of the abdomen showing mild scarring and subsegmental atelectasis in the left lung base, low-density right adrenal mass suggestive of benign disease, and b/l perinephric fat stranding of uncertain significance with no renal mass or obstruction noted. Review of systems: Constitutional: No reports of fatigue, no reports of fevers or chills Cardiovascular: No reports of chest pain or palpitations Respiratory: No reports of shortness of breath, occasional cough GI: no reports of nausea or vomiting : no reports of dysuria or retention Neurovascular: no reports of weakness or numbness Active Medications Acetaminophen (Tylenol Tab) 650 mg PO Q6HR PRN PRN Reason: Mild Pain or Fever > 100.5 Alprazolam (Xanax) 0.25 mg PO BID PRN PRN Reason: Anxiety Last Admin: 09/05/19 01:16 Dose: 0.25 mg Documented by: Amlodipine Besylate (Norvasc) 10 mg PO DAILY [facility] Last Admin: 09/04/19 09:51 Dose: 10 mg Documented by: Aspirin (Aspirin) 81 mg PO DAILY [facility] Last Admin: 09/04/19 09:52 Dose: 81 mg Documented by: Calcium Acetate (Phoslo) 667 mg PO TID-W/MEALS [facility] Last Admin: 09/04/19 18:31 Dose: Not Given Documented by: Sodium Chloride (Saline 0.9%) 1,000 mls @ 75 mls/hr IV .[id number] [facility] Last Admin: 09/04/19 23:52 Dose: 75 mls/hr Documented by: Ferric Sodium Gluconate 125 mg (/ Sodium Chloride) 110 mls @ 100 mls/hr IVPB DAILY [facility] Stop: 09/06/19 09:01 Last Admin: 09/04/19 09:51 Dose: 100 mls/hr Documented by: Magnesium Oxide (Mag-Ox) 400 mg PO DAILY [facility] Last Admin: 09/04/19 09:52 Dose: 400 mg Documented by: Metoprolol Succinate (Toprol Xl) 200 mg PO DAILY [facility] Last Admin: 09/04/19 09:51 Dose: 200 mg Documented by: Miscellaneous Information (Magnesium Per Protocol) 1 each MISCELLANE DAILY PRN; Protocol PRN Reason: Per Protocol Miscellaneous Information (Magnesium Per Protocol) 1 each MISCELLANE DAILY PRN; Protocol PRN Reason: Per Protocol Multivitamins (Theragran) 1 each PO DAILY [facility] Last Admin: 09/04/19 09:52 Dose: 1 each Documented by: Naloxone HCl (Narcan) 0.2 mg IV Q2M PRN PRN Reason: Opioid Reversal Ondansetron HCl (Zofran) 4 mg IVP Q8HR PRN PRN Reason: Nausea And Vomiting Pantoprazole Sodium (Protonix) 40 mg PO AC-BRKFST [facility] Last Admin: 09/04/19 09:52 Dose: 40 mg Documented by: Sodium Bicarbonate (Sodium Bicarbonate Tab) 650 mg PO BID [facility] Last Admin: 09/04/19 20:41 Dose: 650 mg Documented by: Objective - Vital Signs Vital signs: Vital Signs Temp 97.7 F 09/04/19 14:47 Pulse 55 L 09/04/19 14:47 Resp 17 09/04/19 14:47 BP 176/49 09/04/19 14:47 Pulse Ox 96 09/04/19 14:47 Intake & Output 09/03/19 09/04/19 09/04/19 18:59 06:59 18:59 Intake Total 827 617 4581 Output Total 200 200 Balance 560 400 900 Intake: Intake, IV Titration 100 700 Amount Sodium Chloride 0.9% 1, 600 000 ml @ 75 mls/hr IV . [id number] [facility] Rx#:[id number] Sodium Ferric Gluconat- 100 100 Sucrose 125 mg In Sodium Chloride 0.9% 100 ml @ 100 mls/hr IVPB DAILY [facility] Rx#:[id number] Oral 660 400 400 Output: Urine 200 200 Other: # Voids 3 3 # Bowel Movements 1 1 - Exam Gen: This is a 64 year old female, awake, alert and oriented x3. Well developed, well nourished. Temp is 97.9F, pulse is 57, resp are 16, blood pressure is 165/83, and pulse ox is 98% on RA. HEENT: Head is atraumatic, normocephalic. Pupils equal, round. Sclerae is anicteric. NECK: Supple. No JVD. No lymphadenopathy. No thyromegaly. LUNGS: diminished bilaterally with no wheezes or rhonchi. No intercostal retractions. HEART: S1,S2 muffled ABDOMEN: Soft. obese. Bowel sounds are present. No masses. No tenderness. EXTREMITIES: No pedal edema. No calf tenderness. NEUROLOGICAL: Patient is awake, alert and oriented x3. Cranial nerves 2 through 12 are grossly intact. - Labs CBC & Chem 7: 09/04/19 07:48 09/04/19 07:48 Labs: Abnormal Lab Results - Last 24 Hours (Table) 09/02/19 09/03/19 09/03/19 Range/Units 09:51 16:44 20:32 RBC (3.80-5.40) m/uL Hgb (11.4-16.0) gm/dL Hct (34.0-46.0) % Lymphocytes # (1.0-4.8) k/uL Chloride (98-107) mmol/L BUN (7-17) mg/dL Creatinine (0.52-1.04) mg/dL Glucose (74-99) mg/dL POC Glucose (mg/dL) 140 H 161 H (75-99) mg/dL Phosphorus (2.5-4.5) mg/dL Tot Complement (CH50) >96 H (42 - 95) U/mL 09/04/19 09/04/19 09/04/19 Range/Units 07:01 07:48 07:48 RBC 3.35 L (3.80-5.40) m/uL Hgb 9.6 L (11.4-16.0) gm/dL Hct 29.5 L (34.0-46.0) % Lymphocytes # 0.7 L (1.0-4.8) k/uL Chloride 110 H (98-107) mmol/L BUN 68 H (7-17) mg/dL Creatinine 3.43 H (0.52-1.04) mg/dL Glucose 136 H (74-99) mg/dL POC Glucose (mg/dL) 156 H (75-99) mg/dL Phosphorus 5.2 H (2.5-4.5) mg/dL Tot Complement (CH50) (42 - 95) U/mL 09/04/19 Range/Units 11:43 RBC (3.80-5.40) m/uL Hgb (11.4-16.0) gm/dL Hct (34.0-46.0) % Lymphocytes # (1.0-4.8) k/uL Chloride (98-107) mmol/L BUN (7-17) mg/dL Creatinine (0.52-1.04) mg/dL Glucose (74-99) mg/dL POC Glucose (mg/dL) 212 H (75-99) mg/dL Phosphorus (2.5-4.5) mg/dL Tot Complement (CH50) (42 - 95) U/mL Microbiology - Last 24 Hours (Table) 09/03/19 05:15 Urine Culture - Preliminary Urine,Voided Assessment and Plan Assessment: Acute renal failure with possible acute tubular necrosis with prerenal factors, rule out underlying chronic kidney disease Hyponatremia Renal cyst Metabolic acidosis secondary to renal failure Hypocalcemia Hyperphosphatemia Hypomagnesemia Anemia, normocytic history of noncompliance history of coronary artery disease CVA/TIA Diabetes mellitus type 2 History of GERD Hypertension line history of DJD History of polyps History of tachycardia as well as persistent ventricular tachycardia History of carotid endarterectomy History of lumpectomy History of anxiety Remote history of nicotine dependence Hypomagnesemia obesity with a BMI of 33.9 Full code Recommendations and discussion: Recommend to continue current medications, management, and symptomatic treatment. Nephrology following. Will repeat am labs and monitor closely. Continue with low potassium, renal diet. Further recommendations to follow.
[2019-09-05 07:03] LABS: Calcium 8.8 mg/dL (8.4-10.2); Potassium 4.2 mmol/L (3.5-5.1)
[2019-09-05 07:43] LABS: Glucose,Whole Blood 146 mg/dL (75-99)
[2019-09-05] MEDS: CALCIUM ACETATE 667 MG TAB PO SCH ×2 (07:45→13:53)
[2019-09-05] MEDS: MAGNESIUM OXIDE 400 MG TAB PO SCH (07:46)
[2019-09-05] MEDS: SODIUM BICARBONATE TAB 650 MG TAB PO SCH (07:46)
[2019-09-05] MEDS: METOPROLOL SUCCINATE (ER) 100 MG TAB.ER.24H PO SCH (07:46)
[2019-09-05] MEDS: amLODIPine 10 MG TAB PO SCH (07:46)
[2019-09-05] MEDS: MULTIVITAMINS, THERA 1 EACH TAB PO SCH (07:47)
[2019-09-05] MEDS: ASPIRIN 81 MG PO SCH (07:47)
[2019-09-05] MEDS: PANTOPRAZOLE 40 MG TABLET PO SCH (07:47)
[2019-09-05] MEDS: SODIUM FERRIC GLUCONAT-SUCROSE 125 MG in SODIUM CHLORIDE 0.9% 100 ML IVPB SCH (09:24)
[2019-09-05 09:39] VITALS: TEMP 97.4
[2019-09-05 11:53] LABS: Glucose,Whole Blood 198 mg/dL (75-99)
[2019-09-05 12:28] VITALS: BP 180/81
[2019-09-05 13:47] LABS: Albumin 2.81 g/dL (3.80-4.90); Gamma Globulin 0.69 g/dL (0.70-1.50)
[2019-09-05] MEDS ORDERED: hydrALAZINE HCL 50 MG TAB PO STA (13:47)
--- NOTE | 2019-09-05 14:33 | PN ---
PROGRESS NOTE The patient is seen for followup for acute kidney injury. Her renal function has been improving with creatinine decreasing from 5.7-2.9 today. The patient wants to go home. She is currently maintained on IV fluids at 75 mL an hour. She has had good urine output. On examination today, blood pressure was elevated 180/81, heart rate 68 per minute. She is afebrile. Examination of the heart S1, S2. Examination of the lungs, bilateral breath sounds are heard. Decreased breath sounds at bases. Abdomen is soft, nontender. Examination lower extremities shows no significant edema. STRUCTURER exam grossly intact. Labs show sodium 144, potassium 4.2, chloride 113, BUN 59, serum creatinine 2.93. ASSESSMENT: 1. Acute kidney injury prerenal currently improving. 2. Chronic kidney disease, previous creatinine 0.9 in September of 2015 with presence of proteinuria most likely secondary to diabetic nephropathy, protein creatinine ratio about 2:4. No evidence of obstruction on ultrasound. 3. Metabolic acidosis associated with acute kidney injury now resolved. 4. Hypomagnesemia associated with gastrointestinal fluid loss and diuresis status post replacement. 5. Anemia of chronic disease with iron deficiency scheduled for 3rd infusion of IV iron today. 6. Hypertension uncontrolled. Expect improvement with discontinuation of IV fluids. PLAN: Discontinue IV fluids. Patient can be discharged. Follow up as outpatient in 1 week time for followup for CKD and acute kidney injury and hypertension. MMODL / IJN: [id number] /
--- NOTE | 2019-09-06 15:52 | P.DS ---
Providers Date of admission: 09/01/19 18:13 Expected date of discharge: 09/05/19 Attending physician: Ej Gordillo Consults: 09/01/19 16:58 Consult Physician Routine Consulting Provider: Uday Montalvo Consult Reason/Comments: albino Do you want consulting provider notified?: Yes Primary care physician: Kristy Ortega Hospital Course: Final diagnosis Acute renal failure with possible acute tubular necrosis with prerenal factors, rule out underlying chronic kidney disease Hyponatremia Renal cyst Metabolic acidosis secondary to renal failure Hypocalcemia Hyperphosphatemia Hypomagnesemia Anemia, normocytic history of noncompliance history of coronary artery disease CVA/TIA Diabetes mellitus type 2 History of GERD Hypertension history of DJD History of polyps History of tachycardia as well as persistent ventricular tachycardia History of carotid endarterectomy History of lumpectomy History of anxiety Remote history of nicotine dependence obesity with a BMI of 33.9 Full code Discharge disposition Patient is being discharged in a stable condition with guarded prognosis to home. Patient will follow-up with Dr. Ortega upon discharge. Patient will also follow-up with nephrology in the outpatient setting. Total time taken is 35 minutes. History of present illness This is an 64-year-old female who was recently admitted with acute renal failure with acute tubular necrosis and was being closely monitored. Nephrology was following. Patient was maintained on sodium bicarb tablets and will continue in the outpatient setting. Creatinine continue to slowly trend down. Current creatinine is 2.93 with a BUN of 59 and a potassium of 4.2. Patient instructed to repeat labs in a few days to monitor kidney functions and follow-up with nephrology in the outpatient setting. Patient also to continue on a low potassium diet. During hospitalization patient had a CT of the abdomen showing no renal mass or obstruction noted. Patient's blood sugars were elevated and patient instructed to continue monitoring blood sugars before meals at bedtime and keep a diary for primary care follow-up. Patient's blood pressure was also elevated and hydralazine 50 mg 3 times daily was added. Patient instructed to monitor blood pressure and keep a diary of this as well for primary care follow- up. Patient states she feels much better and would like to go home. Currently no reports of chest pain, shortness of breath, or palpitations. Patient is afebrile. No reports of nausea or vomiting and patient is tolerating diet. Guarded prognosis. On exam vital signs are stable. Temp is 97.4F, pulse is 70, respirations are 18, blood pressure is 189/76, oxygen saturation is 96% on room air. Cardio S1, S2 are muffled. Respiratory shows diminished breath sounds at the bases with no wheezing or rhonchi noted. Abdomen is soft and nontender. Nervous system shows no focal deficits. Please refer to medication reconciliation sheet for a list of medications. Patient Condition at Discharge: Stable Plan - Discharge Summary Discharge Rx Participant: No New Discharge Prescriptions: New Calcium Acetate [PhosLo] 667 mg PO TID-W/MEALS 30 Days #90 tab Pantoprazole [Protonix] 40 mg PO AC-BRKFST 30 Days #30 tablet. Sodium Bicarbonate Tab 650 mg PO BID 30 Days #60 tab hydrALAZINE HCL [Apresoline] 50 mg PO TID 30 Days #90 tab Continue ALPRAZolam [Xanax] 0.25 mg PO BID PRN PRN Reason: Anxiety amLODIPine [Norvasc] 10 mg PO DAILY Zolpidem [Ambien] 10 mg PO HS PRN PRN Reason: sleep Multivitamins, Thera [Multivitamin (formulary)] 1 tab PO DAILY Aspirin EC [Ecotrin Low Dose] 81 mg PO DAILY Pioglitazone [Actos] 30 mg PO HS Metoprolol Succinate [Toprol XL] 200 mg PO DAILY Furosemide [Lasix] 20 mg PO DAILY Magnesium Oxide [Day] 500 mg PO DAILY Discontinued DULoxetine HCL [Cymbalta] 60 mg PO HS Losartan Potassium 100 mg PO DAILY Rosuvastatin Calcium 10 mg PO HS DULoxetine HCL [Cymbalta] 30 mg PO DAILY Gabapentin [Neurontin] 300 mg PO DAILY Discharge Medication List ALPRAZolam [Xanax] 0.25 mg PO BID PRN 05/07/14 [History] Multivitamins, Thera [Multivitamin (formulary)] 1 tab PO DAILY 05/07/14 [History] Zolpidem [Ambien] 10 mg PO HS PRN 05/07/14 [History] amLODIPine [Norvasc] 10 mg PO DAILY 05/07/14 [History] Aspirin EC [Ecotrin Low Dose] 81 mg PO DAILY 09/19/15 [History] Furosemide [Lasix] 20 mg PO DAILY 09/01/19 [History] Magnesium Oxide [Day] 500 mg PO DAILY 09/01/19 [History] Metoprolol Succinate [Toprol XL] 200 mg PO DAILY 09/01/19 [History] Pioglitazone [Actos] 30 mg PO HS 09/01/19 [History] Calcium Acetate [PhosLo] 667 mg PO TID-W/MEALS 30 Days #90 tab 09/05/19 [Rx] Pantoprazole [Protonix] 40 mg PO AC-BRKFST 30 Days #30 tablet. 09/05/19 [Rx] Sodium Bicarbonate Tab 650 mg PO BID 30 Days #60 tab 09/05/19 [Rx] hydrALAZINE HCL [Apresoline] 50 mg PO TID 30 Days #90 tab 09/05/19 [Rx] Follow up Appointment(s)/Referral(s): Kenya Bocanegra MD [STAFF PHYSICIAN] - 09/19/19 11:20 am (Nurse practitioner to call at this scheduled time.) Kristy Ortega MD [Primary Care Provider] - 1-2 days (office closed at time of discharge. Please call to make appointment) Ambulatory/Diagnostic Orders: Basic Metabolic Panel [LAB.AMB] Time Frame: 2 Days, Location: None Selected Patient Instructions/Handouts: Potassium Content of Foods List (GEN), Chronic Kidney Disease Diet (GEN) Activity/Diet/Wound Care/Special Instructions: Activity Limited until follow-up Continue renal diet, low potassium diet Follow-up with primary care provider upon discharge Follow-up with nephrology in one week Repeat labs in 2-3 days Discharge Disposition: HOME SELF-CARE
--- NOTE | 2019-09-07 14:21 | CDI ---
Documentation Clarification Form Date: 09/07/19 From: Freida Mims Phone: If you have a question about this query, please contact Socorro Souza, [employer] at [phone] between 8am and 5pm. Admit Date: 09/01/19 Discharge Date: 09/05/19 Patient Name: ASHLEY DELGADO Visit Number: [id number] ATTENTION: The Clinical Documentation Specialists (CDI) and [facility] Coding Staff appreciate your assistance in clarifying documentation. Please respond to the clarification below the line at the bottom and electronically sign. The CDI & [facility] Coding staff will review the response and follow-up if needed. Please note: Queries are made part of the Legal Health Record. If you have any questions, please contact the author of this message via ITS. Dear Dr. Kenya Bocanegra, CKD is documented in the renal consult, PNs 09/01, 09/02, 09/03, 09/04 & DS. History/Risk Factors: Chronic kidney disease, previous creatinine 0.9 in September of 2015 with presence of proteinuria most likely secondary to diabetic nephropathy, protein creatinine ratio about 2:4. No evidence of obstruction on ultrasound. Lab date range: 08/31-09/05/19 Current BUN: 95, 94, 82, 68, 59 Current CR: 5.74, 5.03, 4.21, 3.43, 2.93 Current GFR: 7, 8, 10, 13, 16 Treatment: Maintain bicarb drip for now, if acidosis improvecd, will change to normal saline. Renal US,quantify proteinuria and check serologies, continue to monitor renal function and urine output, hold amlodipine systolic BP less than 120, add Phoslo with meals, obtain records from PCP to assess baseline renal function In order to capture the severity of condition, please clarify the stage of the CKD, if known: CKD ruled out CKD Stage 1 (GFR > 90) CKD Stage 2 (GFR 60-89) CKD Stage 3 (GFR 30-59) CKD Stage 4 (GFR 15-29) CKD Stage 5 (GFR <15) ESRD Other, please specify ____CKD stage 3 Unable to determine MTDD
== END 2019-09-05 14:27 | disposition home health service (06) | DRG 683 ==
LOC: EC 15:09 → 3SCARD 18:13 → 4SSUR 09-03 16:34
PROVIDERS: ADMIT Hospitalist; ATTEND Hospitalist
DX: N17.0 Acute kidney failure with tubular necrosis (principal); E87.1 Hypo-osmolality and hyponatremia; E87.2 Acidosis; J98.11 Atelectasis; R44.3 Hallucinations, unspecified; E83.39 Other disorders of phosphorus metabolism; E11.22 Type 2 diabetes mellitus with diabetic chronic kidney disease; E83.51 Hypocalcemia; D63.1 Anemia in chronic kidney disease; N18.3 Chronic kidney disease, stage 3 (moderate); I12.9 Hypertensive chronic kidney disease with stage 1 through stage 4 chronic kidney disease, or unspecified chronic kidney disease; Z11.59 Encounter for screening for other viral diseases; E83.42 Hypomagnesemia; D50.9 Iron deficiency anemia, unspecified; I25.10 Atherosclerotic heart disease of native coronary artery without angina pectoris; R00.1 Bradycardia, unspecified; N28.1 Cyst of kidney, acquired; K21.9 Gastro-esophageal reflux disease without esophagitis; E86.9 Volume depletion, unspecified; E27.9 Disorder of adrenal gland, unspecified; F41.9 Anxiety disorder, unspecified; I83.91 Asymptomatic varicose veins of right lower extremity; M19.90 Unspecified osteoarthritis, unspecified site; E66.9 Obesity, unspecified; Z68.33 Body mass index [BMI] 33.0-33.9, adult; Z91.19 Patient's noncompliance with other medical treatment and regimen; Z79.84 Long term (current) use of oral hypoglycemic drugs; Z79.82 Long term (current) use of aspirin; Z79.899 Other long term (current) drug therapy; Z87.891 Personal history of nicotine dependence; Z86.73 Personal history of transient ischemic attack (TIA), and cerebral infarction without residual deficits; Z87.39 Personal history of other diseases of the musculoskeletal system and connective tissue; Z86.79 Personal history of other diseases of the circulatory system; Z87.19 Personal history of other diseases of the digestive system; Z98.890 Other specified postprocedural states; Z87.440 Personal history of urinary (tract) infections; Z88.1 Allergy status to other antibiotic agents; Z88.0 Allergy status to penicillin; Z88.8 Allergy status to other drugs, medicaments and biological substances; Z82.49 Family history of ischemic heart disease and other diseases of the circulatory system
CPT/HCPCS: 36415; 70450; 71045; 74176; 76770; 80048; 80053; 80074; 81001; 82140; 82570; 82728; 83540; 83550; 83735; 84100; 84156; 84165; 84443; 85025; 85610; 85730; 86038; 86160; 86162; 86225; 86255; 86334; 86335; 87086; 96361; 96365; 99285

== ENCOUNTER 2019-09-07 18:02 | Emergency (ER) | payer MEDICARE ==
[2019-09-07] MEDS ORDERED: ACETAMINOPHEN TAB 500 MG TAB PO STA (18:45)
[2019-09-07] MEDS ORDERED: SODIUM CHLORIDE 0.9% 1,000 ML IV STA (18:45)
--- NOTE | 2019-09-07 19:20 | ED ---
Fever HPI - General Chief Complaint: Fever Stated Complaint: Back pain Time Seen by Provider: 09/07/19 18:33 Source: patient Mode of arrival: wheelchair Limitations: no limitations - History of Present Illness Initial Comments: Patient is 64-year-old female with history of type 2 diabetes, acute kidney failure presenting to the emergency department with a chief complaint of abdominal and back pain. Patient states she was discharged from the hospital 2 days ago after she was negative for acute kidney injury. Patient states she was started on hydralazine and Cozaar. Patient reports after she began taking the medication she is developed increased nausea but no vomiting. Reports suprapubic pain. Also reports right-sided lumbar pain. Denies increased frequency urgency dysuria. Denies hematuria, hematochezia or melena. States after she came to the emergency department today, she was diagnosed with a fever. Denies any cough chest pain shortness of breath or exposure to known Covid patient. - Related Data Home Medications Medication Instructions Recorded Confirmed ALPRAZolam [Xanax] 0.25 mg PO BID PRN 05/07/14 09/07/19 Multivitamins, Thera [Multivitamin 1 tab PO DAILY 05/07/14 09/07/19 (formulary)] Zolpidem [Ambien] 10 mg PO HS PRN 05/07/14 09/07/19 amLODIPine [Norvasc] 10 mg PO DAILY 05/07/14 09/07/19 Aspirin EC [Ecotrin Low Dose] 81 mg PO DAILY 09/19/15 09/07/19 Furosemide [Lasix] 20 mg PO DAILY 09/01/19 09/07/19 Magnesium Oxide [Day] 500 mg PO DAILY 09/01/19 09/07/19 Metoprolol Succinate [Toprol XL] 200 mg PO DAILY 09/01/19 09/07/19 Pioglitazone [Actos] 30 mg PO HS 09/01/19 09/07/19 Calcium Acetate [PhosLo] 667 mg PO AC-TID 09/07/19 09/07/19 Previous Rx's Medication Instructions Recorded Pantoprazole [Protonix] 40 mg PO AC-BRKFST 30 Days #30 09/05/19 tablet. Sodium Bicarbonate Tab 650 mg PO BID 30 Days #60 tab 09/05/19 hydrALAZINE HCL [Apresoline] 50 mg PO TID 30 Days #90 tab 09/05/19 Allergies Allergy/AdvReac Type Severity Reaction Status Date / Time captopril Allergy Cough Verified 09/07/19 22:33 cephalexin monohydrate Allergy Rash/Hives Verified 09/07/19 22:33 [From Keflex] Penicillins Allergy Rash/Hives Verified 09/07/19 22:33 Review of Systems ROS Statement: Those systems with pertinent positive or pertinent negative responses have been documented in the HPI. ROS Other: All systems not noted in ROS Statement are negative. Past Medical History Past Medical History: Coronary Artery Disease (CAD), CVA/TIA, Diabetes Mellitus, GERD/Reflux, Hypertension Additional Past Medical History / Comment(s): cva 2012, arthritis, polyps, high heart ratte at times with short bursts of V tach History of Any Multi-Drug Resistant Organisms: None Reported Additional Past Surgical History / Comment(s): carotid endarct, Lumpectomy right breast, Carpel Tunnel Surgery bilat wrists, pyleonitis cyst removal, vericose vein removal Past Anesthesia/Blood Transfusion Reactions: Previous Problems w/ Anesthesia Additional Past Anesthesia/Blood Transfusion Reaction / Comment(s): had trouble waking up after surgery Past Psychological History: Anxiety Smoking Status: Former smoker Past Alcohol Use History: Occasional Past Drug Use History: None Reported - Past Family History Daughter(s) Additional Family Medical History / Comment(s): fast heart rate General Exam Limitations: no limitations General appearance: alert, in no apparent distress, obese Head exam: Present: atraumatic, normocephalic, normal inspection Eye exam: Present: normal appearance, PERRL Pupils: Present: normal accommodation ENT exam: Present: normal exam, normal oropharynx, mucous membranes moist, TM's normal bilaterally, normal external ear exam Neck exam: Present: normal inspection, full ROM. Absent: tenderness Respiratory exam: Present: normal lung sounds bilaterally. Absent: respiratory distress, wheezes Cardiovascular Exam: Present: regular rate, normal rhythm, normal heart sounds. Absent: bradycardia GI/Abdominal exam: Present: soft, tenderness (Suprapubic tenderness). Absent: distended, guarding Extremities exam: Present: normal inspection, full ROM, normal capillary refill, pedal edema (+2 pitting edema baseline), other (+2 ulnar and radial pulses bilateral.) Back exam: Present: normal inspection, full ROM, tenderness, CVA tenderness (R), paraspinal tenderness (Right paraspinal) Neurological exam: Present: alert, oriented X3, normal gait Psychiatric exam: Present: normal affect, normal mood Skin exam: Present: warm, dry, intact, normal color Course Vital Signs 09/07/19 09/07/19 18:10 22:13 Temperature 100.4 F H 98.5 F Pulse Rate 56 L 48 L Respiratory 18 18 Rate Blood Pressure 145/70 134/62 O2 Sat by Pulse 95 96 Oximetry Medical Decision Making - Medical Decision Making Patient is a 64-year-old female with history of type 2 diabetes and acute kidney injury presenting to emergency Department with a chief complaint of abdominal back pain. On exam patient does appear to have some right CVA tenderness and suprapubic abdominal pain. No leukocytosis. Hemoglobin levels appear to be gradually decreasing. Hemoccult negative. EKG appears to be a sinus antonio cardia and is similar to her most recent on 08/26/19. Patient is renal function seems to be improving after discharge. Improvement BUN or creatinine levels slightly increased. UA shows elevated leukocyte esterase and white blood cells. Urine culture pending. Patient also has hypomagnesemia and was given IV magnesium sulfate. Patient will be discharged with magnesium supplements. Patient has a urinary tract infection. Patient started on Rocephin in the ED will be discharged with Keflex. Patient has an appointment with her primary care over the next few days. I initial evaluation, patient was febrile and was given Tylenol. She will also get tramadol for pain. Return parameters were thoroughly discussed patient was understanding and agreeable. Case discussed with physician. - Lab Data Result diagrams: 09/07/19 19:48 09/07/19 19:48 Lab Results 09/07/19 09/07/19 09/07/19 Range/Units 19:48 19:48 19:48 WBC 7.3 (3.8-10.6) k/uL RBC 3.22 L (3.80-5.40) m/uL Hgb 9.0 L (11.4-16.0) gm/dL Hct 28.2 L (34.0-46.0) % MCV 87.8 (80.0-100.0) fL MCH 28.0 (25.0-35.0) pg MCHC 31.9 (31.0-37.0) g/dL RDW 14.0 (11.5-15.5) % Plt Count 213 (150-450) k/uL Neutrophils % 82 % Lymphocytes % 9 % Monocytes % 6 % Eosinophils % 1 % Basophils % 0 % Neutrophils # 5.9 (1.3-7.7) k/uL Lymphocytes # 0.7 L (1.0-4.8) k/uL Monocytes # 0.4 (0-1.0) k/uL Eosinophils # 0.0 (0-0.7) k/uL Basophils # 0.0 (0-0.2) k/uL Sodium 135 L (137-145) mmol/L Potassium 4.5 (3.5-5.1) mmol/L Chloride 106 (98-107) mmol/L Carbon Dioxide 22 (22-30) mmol/L Anion Gap 7 mmol/L BUN 45 H (7-17) mg/dL Creatinine 3.03 H (0.52-1.04) mg/dL Est GFR (CKD-EPI)AfAm 18 (>60 ml/min/1.73 sqM) Est GFR (CKD-EPI)NonAf 16 (>60 ml/min/1.73 sqM) Glucose 171 H (74-99) mg/dL Plasma Lactic Acid Kong 0.7 (0.7-2.0) mmol/L Calcium 8.7 (8.4-10.2) mg/dL Magnesium 1.3 L (1.6-2.3) mg/dL Total Bilirubin 0.8 (0.2-1.3) mg/dL AST 13 L (14-36) U/L ALT 9 (4-34) U/L Alkaline Phosphatase 85 (38-126) U/L Troponin I (0.000-0.034) ng/mL Total Protein 5.8 L (6.3-8.2) g/dL Albumin 3.1 L (3.5-5.0) g/dL Urine Color Urine Appearance (Clear) Urine pH (5.0-8.0) Ur Specific Hudson (1.001-1.035) Urine Protein (Negative) Urine Glucose (UA) (Negative) Urine Ketones (Negative) Urine Blood (Negative) Urine Nitrite (Negative) Urine Bilirubin (Negative) Urine Urobilinogen (<2.0) mg/dL Ur Leukocyte Esterase (Negative) Urine RBC (0-5) /hpf Urine WBC (0-5) /hpf Ur Squamous Epith Cells (0-4) /hpf Hyaline Casts (0-2) /lpf Urine Mucus (None) /hpf Stool Occult Blood (Negative) 09/07/19 09/07/19 09/07/19 Range/Units 19:48 20:53 22:18 WBC (3.8-10.6) k/uL RBC (3.80-5.40) m/uL Hgb (11.4-16.0) gm/dL Hct (34.0-46.0) % MCV (80.0-100.0) fL MCH (25.0-35.0) pg MCHC (31.0-37.0) g/dL RDW (11.5-15.5) % Plt Count (150-450) k/uL Neutrophils % % Lymphocytes % % Monocytes % % Eosinophils % % Basophils % % Neutrophils # (1.3-7.7) k/uL Lymphocytes # (1.0-4.8) k/uL Monocytes # (0-1.0) k/uL Eosinophils # (0-0.7) k/uL Basophils # (0-0.2) k/uL Sodium (137-145) mmol/L Potassium (3.5-5.1) mmol/L Chloride (98-107) mmol/L Carbon Dioxide (22-30) mmol/L Anion Gap mmol/L BUN (7-17) mg/dL Creatinine (0.52-1.04) mg/dL Est GFR (CKD-EPI)AfAm (>60 ml/min/1.73 sqM) Est GFR (CKD-EPI)NonAf (>60 ml/min/1.73 sqM) Glucose (74-99) mg/dL Plasma Lactic Acid Kong (0.7-2.0) mmol/L Calcium (8.4-10.2) mg/dL Magnesium (1.6-2.3) mg/dL Total Bilirubin (0.2-1.3) mg/dL AST (14-36) U/L ALT (4-34) U/L Alkaline Phosphatase (38-126) U/L Troponin I 0.019 (0.000-0.034) ng/mL Total Protein (6.3-8.2) g/dL Albumin (3.5-5.0) g/dL Urine Color Yellow Urine Appearance Cloudy H (Clear) Urine pH 6.0 (5.0-8.0) Ur Specific Hudson 1.018 (1.001-1.035) Urine Protein 3+ H (Negative) Urine Glucose (UA) 1+ H (Negative) Urine Ketones Negative (Negative) Urine Blood Negative (Negative) Urine Nitrite Negative (Negative) Urine Bilirubin Negative (Negative) Urine Urobilinogen <2.0 (<2.0) mg/dL Ur Leukocyte Esterase Moderate H (Negative) Urine RBC 5 (0-5) /hpf Urine WBC 39 H (0-5) /hpf Ur Squamous Epith Cells 8 H (0-4) /hpf Hyaline Casts 1 (0-2) /lpf Urine Mucus Rare H (None) /hpf Stool Occult Blood Negative (Negative) - EKG Data EKG Comments: Sinus bradycardia. Similar EKG to 09/03/19. Which revealed a 50, GA 156, QRS 94, QTC 444. Disposition Clinical Impression: Urinary tract infection, Anemia, Hypomagnesemia Disposition: HOME SELF-CARE Condition: Good Additional Instructions: Take prescribed medication as directed. Follow-up with your primary care. Return to emergency department if symptoms worsen. Is patient prescribed a controlled substance at d/c from ED?: No Referrals: Kristy Ortega MD [Primary Care Provider] - 1-2 days Time of Disposition: 22:54
[2019-09-07 20:16] LABS: Basophils % (A) 0 %; Eosinophils % (A) 1 %; HCT 28.2 % (34.0-46.0); Lymphocytes # (A) 0.7 k/uL (1.0-4.8); Lymphocytes % (A) 9 %; MCHC 31.9 g/dL (31.0-37.0); MCV 87.8 fL (80.0-100.0); Mean Platelet Volume 8.1; Monocytes # (A) 0.4 k/uL (0-1.0); Monocytes % (A) 6 %; Neutrophils # (A) 5.9 k/uL (1.3-7.7); Neutrophils % (A) 82 %; Platelet Count 213 k/uL (150-450); RBC 3.22 m/uL (3.80-5.40); WBC 7.3 k/uL (3.8-10.6)
[2019-09-07 20:28] LABS: Albumin 3.1 g/dL (3.5-5.0); Calcium 8.7 mg/dL (8.4-10.2); Magnesium 1.3 mg/dL (1.6-2.3); Potassium 4.5 mmol/L (3.5-5.1); Total Bilirubin 0.8 mg/dL (0.2-1.3); Total Protein 5.8 g/dL (6.3-8.2)
[2019-09-07] MEDS ORDERED: traMADol 50 MG TAB PO STA (20:53)
[2019-09-07] MEDS: MAGNESIUM SULFATE-D5W PMX 1 GM in DEXTROSE/WATER 1 100ML.BAG IVPB SCH ×2 (21:11→22:07)
[2019-09-07 22:47] LABS: Appearance,Urine Cloudy (Clear); Bilirubin,Urine Negative (Negative); Blood,Urine Negative (Negative); Color,Urine Yellow; Glucose,Urine (UA) 1+ (Negative); Hyaline Casts,Urine 1 /lpf (0-2); Ketones,Urine Negative (Negative); Leukocyte Esterase,Urine Moderate (Negative); Mucus,Urine Rare /hpf; Nitrite,Urine Negative (Negative); Protein,Urine 3+ (Negative); RBC,Urine 5 /hpf (0-5); Specific Gravity,Urine 1.018 (1.001-1.035); Squamous Epithelial Cell,Urine 8 /hpf (0-4); Urobilinogen,Urine <2.0 mg/dL (<2.0); WBC,Urine 39 /hpf (0-5)
[2019-09-07] MEDS ORDERED: cefTRIAXone IN SWFI 1,000 MG/10 ML SYRINGE IVP STA (23:43)
[2019-09-07] MEDS ORDERED: traMADol 50 MG STARTER PACK 3 TAB BTL PO STA (23:44)
[2019-09-07] MEDS ORDERED: diphenhydrAMINE 50 MG/ML 1 ML VIAL IVP STA (23:51)
[2019-09-08 01:02] VITALS: BP 150/67; PULSE 55; RESP 18; TEMP 98.9
== END 2019-09-08 01:01 | disposition home or self-care (01) ==
LOC: EC 18:02
DX: N39.0 Urinary tract infection, site not specified (principal); D64.9 Anemia, unspecified; E83.42 Hypomagnesemia; E11.9 Type 2 diabetes mellitus without complications; N17.9 Acute kidney failure, unspecified; R00.1 Bradycardia, unspecified; I25.10 Atherosclerotic heart disease of native coronary artery without angina pectoris; F41.9 Anxiety disorder, unspecified; I10 Essential (primary) hypertension; Z79.82 Long term (current) use of aspirin; Z79.899 Other long term (current) drug therapy; Z79.84 Long term (current) use of oral hypoglycemic drugs; Z88.8 Allergy status to other drugs, medicaments and biological substances; Z87.891 Personal history of nicotine dependence; Z88.1 Allergy status to other antibiotic agents; Z88.0 Allergy status to penicillin
CPT/HCPCS: 36415; 93005; 80053; 83605; 83735; 84484; 85025; 82272; 81001; 87040; 87086; 99284; 96365; 96366; 96375 ×2; 96361; J3475

== ENCOUNTER 2019-10-13 14:51 | Inpatient (IN) | payer MEDICARE ==
[2019-10-13] MEDS ORDERED: SODIUM CHLORIDE 0.9% 1,000 ML IV STA ×3 (15:18→17:50)
--- NOTE | 2019-10-13 15:18 | ED ---
Altered Mental Status HPI - General Chief Complaint: Altered Mental Status Stated Complaint: Altered mental status Time Seen by Provider: 10/13/19 15:17 Source: patient, family, RN notes reviewed, old records reviewed Mode of arrival: EMS Limitations: no limitations - History of Present Illness Initial Comments: This is a 64-year-old female of altered mental status unable to give significantly accurate history coming in for possible arrhythmia palpitations or dysrhythmia. History obtained from patient's chart and EMS MD Complaint: altered mental status, confusion, weakness -: unknown Severity: moderate Consistency of Symptoms: getting worse Context: history of similar presentation Associated Symptoms: weakness - Related Data Home Medications Medication Instructions Recorded Confirmed ALPRAZolam [Xanax] 0.25 mg PO BID PRN 05/07/14 10/13/19 Multivitamins, Thera [Multivitamin 1 tab PO DAILY 05/07/14 10/13/19 (formulary)] Zolpidem [Ambien] 10 mg PO HS PRN 05/07/14 10/13/19 amLODIPine [Norvasc] 10 mg PO DAILY 05/07/14 10/13/19 Aspirin EC [Ecotrin Low Dose] 81 mg PO DAILY 09/19/15 10/13/19 Furosemide [Lasix] 20 mg PO DAILY 09/01/19 10/13/19 Magnesium Oxide [Day] 500 mg PO TID 09/01/19 10/13/19 Metoprolol Succinate [Toprol XL] 200 mg PO DAILY 09/01/19 10/13/19 Pioglitazone [Actos] 30 mg PO HS 09/01/19 10/13/19 Calcium Acetate [PhosLo] 667 mg PO AC-TID 09/07/19 10/13/19 DULoxetine HCL [Cymbalta] 30 mg PO DIRECTED 10/13/19 10/13/19 DULoxetine HCL [Cymbalta] 60 mg PO DIRECTED 10/13/19 10/13/19 Losartan Potassium 50 mg PO DAILY 10/13/19 10/13/19 Previous Rx's Medication Instructions Recorded Pantoprazole [Protonix] 40 mg PO AC-BRKFST 30 Days #30 09/05/19 tablet. Sodium Bicarbonate Tab 650 mg PO BID 30 Days #60 tab 09/05/19 hydrALAZINE HCL [Apresoline] 50 mg PO TID 30 Days #90 tab 09/05/19 Allergies Allergy/AdvReac Type Severity Reaction Status Date / Time captopril Allergy Cough Verified 10/13/19 18:58 cephalexin monohydrate Allergy Rash/Hives Verified 10/13/19 18:58 [From Keflex] Penicillins Allergy Rash/Hives Verified 10/13/19 18:58 Review of Systems ROS Statement: Those systems with pertinent positive or pertinent negative responses have been documented in the HPI. ROS Other: All systems not noted in ROS Statement are negative. Past Medical History Past Medical History: Coronary Artery Disease (CAD), CVA/TIA, Diabetes Mellitus, GERD/Reflux, Hypertension Additional Past Medical History / Comment(s): cva 2012, arthritis, polyps, high heart ratte at times with short bursts of V tach History of Any Multi-Drug Resistant Organisms: None Reported Additional Past Surgical History / Comment(s): carotid endarct, Lumpectomy right breast, Carpel Tunnel Surgery bilat wrists, pyleonitis cyst removal, vericose vein removal Past Anesthesia/Blood Transfusion Reactions: Previous Problems w/ Anesthesia Additional Past Anesthesia/Blood Transfusion Reaction / Comment(s): had trouble waking up after surgery Past Psychological History: Anxiety Past Alcohol Use History: Occasional Past Drug Use History: None Reported - Past Family History Daughter(s) Additional Family Medical History / Comment(s): fast heart rate General Exam Limitations: altered mental status General appearance: alert, in no apparent distress, anxious Head exam: Present: atraumatic, normocephalic, normal inspection Eye exam: Present: normal appearance, PERRL, EOMI. Absent: scleral icterus, conjunctival injection, periorbital swelling ENT exam: Present: normal exam, mucous membranes moist Neck exam: Present: normal inspection. Absent: tenderness, meningismus, lymphadenopathy Respiratory exam: Present: normal lung sounds bilaterally. Absent: respiratory distress, wheezes, rales, rhonchi, stridor Cardiovascular Exam: Present: normal rhythm, bradycardia, normal heart sounds. Absent: systolic murmur, diastolic murmur, rubs, gallop, clicks GI/Abdominal exam: Present: soft, normal bowel sounds. Absent: distended, tenderness, guarding, rebound, rigid Extremities exam: Present: normal inspection, full ROM, normal capillary refill. Absent: tenderness, pedal edema, joint swelling, calf tenderness Back exam: Present: normal inspection Neurological exam: Present: alert, oriented X3, CN II-XII intact Psychiatric exam: Present: normal affect, normal mood Skin exam: Present: warm, dry, intact, normal color. Absent: rash Course Vital Signs 10/13/19 10/13/19 14:52 18:31 Temperature 96.6 F L 97.1 F L Pulse Rate 42 L 44 L Respiratory 16 18 Rate Blood Pressure 105/54 123/74 O2 Sat by Pulse 98 96 Oximetry - Reevaluation(s) Reevaluation #1: Medical record is reviewed Symptoms are still significant low heart rate Spoke with patient regarding symptoms and findings, questions answered Patient will admit for altered mental status cardiology evaluate bradycardia Medical Decision Making - Medical Decision Making exercise 64 female DF for evaluation of palpitations found to be significantly bradycardic we will admit for cardiac observation - Lab Data Result diagrams: 10/25/19 07:26 10/25/19 07:26 Lab Results 10/13/19 10/13/19 10/13/19 Range/Units 16:38 16:38 16:38 WBC 3.6 L (3.8-10.6) k/uL RBC 3.12 L (3.80-5.40) m/uL Hgb 9.1 L (11.4-16.0) gm/dL Hct 28.2 L (34.0-46.0) % MCV 90.1 (80.0-100.0) fL MCH 29.1 (25.0-35.0) pg MCHC 32.3 (31.0-37.0) g/dL RDW 15.3 (11.5-15.5) % Plt Count 146 L (150-450) k/uL Neutrophils % 71 % Lymphocytes % 17 % Monocytes % 6 % Eosinophils % 3 % Basophils % 1 % Neutrophils # 2.6 (1.3-7.7) k/uL Lymphocytes # 0.6 L (1.0-4.8) k/uL Monocytes # 0.2 (0-1.0) k/uL Eosinophils # 0.1 (0-0.7) k/uL Basophils # 0.0 (0-0.2) k/uL PT 9.6 (9.0-12.0) sec INR 0.9 (<1.2) APTT 22.5 (22.0-30.0) sec Sodium 136 L (137-145) mmol/L Potassium 4.9 (3.5-5.1) mmol/L Chloride 109 H (98-107) mmol/L Carbon Dioxide 20 L (22-30) mmol/L Anion Gap 7 mmol/L BUN 50 H (7-17) mg/dL Creatinine 3.11 H (0.52-1.04) mg/dL Est GFR (CKD-EPI)AfAm 17 (>60 ml/min/1.73 sqM) Est GFR (CKD-EPI)NonAf 15 (>60 ml/min/1.73 sqM) Glucose 116 H (74-99) mg/dL POC Glucose (mg/dL) (75-99) mg/dL POC Glu Instructor Adjunct Pharmacy Technician ID Plasma Lactic Acid Kong (0.7-2.0) mmol/L Calcium 8.8 (8.4-10.2) mg/dL Phosphorus 4.3 (2.5-4.5) mg/dL Magnesium 1.6 (1.6-2.3) mg/dL Iron (50-170) ug/dL TIBC (228-460) ug/dL % Saturation (12.00-45.00) Ferritin (10.0-291.0) ng/mL Total Bilirubin 0.5 (0.2-1.3) mg/dL AST 20 (14-36) U/L ALT 24 (4-34) U/L Alkaline Phosphatase 84 (38-126) U/L Ammonia (<30) umol/L Creatine Kinase 27 L (30-135) U/L Troponin I (0.000-0.034) ng/mL NT-Pro-B Natriuret Pep pg/mL Total Protein 6.1 L (6.3-8.2) g/dL Albumin 3.4 L (3.5-5.0) g/dL TSH (0.465-4.680) mIU/L Free T4 (0.78-2.19) ng/dL Urine Color Urine Appearance (Clear) Urine pH (5.0-8.0) Ur Specific [place] (1.001-1.035) Urine Protein (Negative) Urine Glucose (UA) (Negative) Urine Ketones (Negative) Urine Blood (Negative) Urine Nitrite (Negative) Urine Bilirubin (Negative) Urine Urobilinogen (<2.0) mg/dL Ur Leukocyte Esterase (Negative) Urine RBC (0-5) /hpf Urine WBC (0-5) /hpf Ur Squamous Epith Cells (0-4) /hpf Amorphous Sediment (None) /hpf Urine Bacteria (None) /hpf Hyaline Casts (0-2) /lpf Urine Mucus (None) /hpf 10/13/19 10/13/19 10/13/19 Range/Units 16:38 16:38 16:38 WBC (3.8-10.6) k/uL RBC (3.80-5.40) m/uL Hgb (11.4-16.0) gm/dL Hct (34.0-46.0) % MCV (80.0-100.0) fL MCH (25.0-35.0) pg MCHC (31.0-37.0) g/dL RDW (11.5-15.5) % Plt Count (150-450) k/uL Neutrophils % % Lymphocytes % % Monocytes % % Eosinophils % % Basophils % % Neutrophils # (1.3-7.7) k/uL Lymphocytes # (1.0-4.8) k/uL Monocytes # (0-1.0) k/uL Eosinophils # (0-0.7) k/uL Basophils # (0-0.2) k/uL PT (9.0-12.0) sec INR (<1.2) APTT (22.0-30.0) sec Sodium (137-145) mmol/L Potassium (3.5-5.1) mmol/L Chloride (98-107) mmol/L Carbon Dioxide (22-30) mmol/L Anion Gap mmol/L BUN (7-17) mg/dL Creatinine (0.52-1.04) mg/dL Est GFR (CKD-EPI)AfAm (>60 ml/min/1.73 sqM) Est GFR (CKD-EPI)NonAf (>60 ml/min/1.73 sqM) Glucose (74-99) mg/dL POC Glucose (mg/dL) (75-99) mg/dL POC Glu Instructor Adjunct Pharmacy Technician ID Plasma Lactic Acid [place] 0.7 (0.7-2.0) mmol/L Calcium (8.4-10.2) mg/dL Phosphorus (2.5-4.5) mg/dL Magnesium (1.6-2.3) mg/dL Iron (50-170) ug/dL TIBC (228-460) ug/dL % Saturation (12.00-45.00) Ferritin (10.0-291.0) ng/mL Total Bilirubin (0.2-1.3) mg/dL AST (14-36) U/L ALT (4-34) U/L Alkaline Phosphatase (38-126) U/L Ammonia 15 (<30) umol/L Creatine Kinase (30-135) U/L Troponin I <0.012 (0.000-0.034) ng/mL NT-Pro-B Natriuret Pep 2910 pg/mL Total Protein (6.3-8.2) g/dL Albumin (3.5-5.0) g/dL TSH (0.465-4.680) mIU/L Free T4 (0.78-2.19) ng/dL Urine Color Urine Appearance (Clear) Urine pH (5.0-8.0) Ur Specific [place] (1.001-1.035) Urine Protein (Negative) Urine Glucose (UA) (Negative) Urine Ketones (Negative) Urine Blood (Negative) Urine Nitrite (Negative) Urine Bilirubin (Negative) Urine Urobilinogen (<2.0) mg/dL Ur Leukocyte Esterase (Negative) Urine RBC (0-5) /hpf Urine WBC (0-5) /hpf Ur Squamous Epith Cells (0-4) /hpf Amorphous Sediment (None) /hpf Urine Bacteria (None) /hpf Hyaline Casts (0-2) /lpf Urine Mucus (None) /hpf 10/13/19 10/13/19 10/13/19 Range/Units 17:19 18:05 18:05 WBC (3.8-10.6) k/uL RBC (3.80-5.40) m/uL Hgb (11.4-16.0) gm/dL Hct (34.0-46.0) % MCV (80.0-100.0) fL MCH (25.0-35.0) pg MCHC (31.0-37.0) g/dL RDW (11.5-15.5) % Plt Count (150-450) k/uL Neutrophils % % Lymphocytes % % Monocytes % % Eosinophils % % Basophils % % Neutrophils # (1.3-7.7) k/uL Lymphocytes # (1.0-4.8) k/uL Monocytes # (0-1.0) k/uL Eosinophils # (0-0.7) k/uL Basophils # (0-0.2) k/uL PT (9.0-12.0) sec INR (<1.2) APTT (22.0-30.0) sec Sodium (137-145) mmol/L Potassium (3.5-5.1) mmol/L Chloride (98-107) mmol/L Carbon Dioxide (22-30) mmol/L Anion Gap mmol/L BUN (7-17) mg/dL Creatinine (0.52-1.04) mg/dL Est GFR (CKD-EPI)AfAm (>60 ml/min/1.73 sqM) Est GFR (CKD-EPI)NonAf (>60 ml/min/1.73 sqM) Glucose (74-99) mg/dL POC Glucose (mg/dL) (75-99) mg/dL POC Glu Instructor Adjunct Pharmacy Technician ID Plasma Lactic Acid [place] (0.7-2.0) mmol/L Calcium (8.4-10.2) mg/dL Phosphorus (2.5-4.5) mg/dL Magnesium (1.6-2.3) mg/dL Iron 67 (50-170) ug/dL TIBC 325 (228-460) ug/dL % Saturation 20.62 (12.00-45.00) Ferritin 100.0 (10.0-291.0) ng/mL Total Bilirubin (0.2-1.3) mg/dL AST (14-36) U/L ALT (4-34) U/L Alkaline Phosphatase (38-126) U/L Ammonia (<30) umol/L Creatine Kinase (30-135) U/L Troponin I (0.000-0.034) ng/mL NT-Pro-B Natriuret Pep pg/mL Total Protein (6.3-8.2) g/dL Albumin (3.5-5.0) g/dL TSH 2.070 (0.465-4.680) mIU/L Free T4 (0.78-2.19) ng/dL Urine Color Yellow Urine Appearance Cloudy H (Clear) Urine pH 5.5 (5.0-8.0) Ur Specific [place] 1.015 (1.001-1.035) Urine Protein 3+ H (Negative) Urine Glucose (UA) Trace H (Negative) Urine Ketones Negative (Negative) Urine Blood Negative (Negative) Urine Nitrite Negative (Negative) Urine Bilirubin Negative (Negative) Urine Urobilinogen <2.0 (<2.0) mg/dL Ur Leukocyte Esterase Moderate H (Negative) Urine RBC 2 (0-5) /hpf Urine WBC 22 H (0-5) /hpf Ur Squamous Epith Cells 10 H (0-4) /hpf Amorphous Sediment Occasional H (None) /hpf Urine Bacteria Occasional H (None) /hpf Hyaline Casts 21 H (0-2) /lpf Urine Mucus Rare H (None) /hpf 10/13/19 10/14/19 10/14/19 Range/Units 20:46 07:15 11:59 WBC (3.8-10.6) k/uL RBC (3.80-5.40) m/uL Hgb (11.4-16.0) gm/dL Hct (34.0-46.0) % MCV (80.0-100.0) fL MCH (25.0-35.0) pg MCHC (31.0-37.0) g/dL RDW (11.5-15.5) % Plt Count (150-450) k/uL Neutrophils % % Lymphocytes % % Monocytes % % Eosinophils % % Basophils % % Neutrophils # (1.3-7.7) k/uL Lymphocytes # (1.0-4.8) k/uL Monocytes # (0-1.0) k/uL Eosinophils # (0-0.7) k/uL Basophils # (0-0.2) k/uL PT (9.0-12.0) sec INR (<1.2) APTT (22.0-30.0) sec Sodium (137-145) mmol/L Potassium (3.5-5.1) mmol/L Chloride (98-107) mmol/L Carbon Dioxide (22-30) mmol/L Anion Gap mmol/L BUN (7-17) mg/dL Creatinine (0.52-1.04) mg/dL Est GFR (CKD-EPI)AfAm (>60 ml/min/1.73 sqM) Est GFR (CKD-EPI)NonAf (>60 ml/min/1.73 sqM) Glucose (74-99) mg/dL POC Glucose (mg/dL) 107 H 137 H 186 H (75-99) mg/dL POC Glu Instructor Adjunct Pharmacy Technician RIVKA Corona, Nohemy Wilson, Radha Wilson, Radha Plasma Lactic Acid [place] (0.7-2.0) mmol/L Calcium (8.4-10.2) mg/dL Phosphorus (2.5-4.5) mg/dL Magnesium (1.6-2.3) mg/dL Iron (50-170) ug/dL TIBC (228-460) ug/dL % Saturation (12.00-45.00) Ferritin (10.0-291.0) ng/mL Total Bilirubin (0.2-1.3) mg/dL AST (14-36) U/L ALT (4-34) U/L Alkaline Phosphatase (38-126) U/L Ammonia (<30) umol/L Creatine Kinase (30-135) U/L Troponin I (0.000-0.034) ng/mL NT-Pro-B Natriuret Pep pg/mL Total Protein (6.3-8.2) g/dL Albumin (3.5-5.0) g/dL TSH (0.465-4.680) mIU/L Free T4 (0.78-2.19) ng/dL Urine Color Urine Appearance (Clear) Urine pH (5.0-8.0) Ur Specific [place] (1.001-1.035) Urine Protein (Negative) Urine Glucose (UA) (Negative) Urine Ketones (Negative) Urine Blood (Negative) Urine Nitrite (Negative) Urine Bilirubin (Negative) Urine Urobilinogen (<2.0) mg/dL Ur Leukocyte Esterase (Negative) Urine RBC (0-5) /hpf Urine WBC (0-5) /hpf Ur Squamous Epith Cells (0-4) /hpf Amorphous Sediment (None) /hpf Urine Bacteria (None) /hpf Hyaline Casts (0-2) /lpf Urine Mucus (None) /hpf 10/14/19 10/14/19 10/14/19 Range/Units 14:01 16:57 21:21 WBC (3.8-10.6) k/uL RBC (3.80-5.40) m/uL Hgb (11.4-16.0) gm/dL Hct (34.0-46.0) % MCV (80.0-100.0) fL MCH (25.0-35.0) pg MCHC (31.0-37.0) g/dL RDW (11.5-15.5) % Plt Count (150-450) k/uL Neutrophils % % Lymphocytes % % Monocytes % % Eosinophils % % Basophils % % Neutrophils # (1.3-7.7) k/uL Lymphocytes # (1.0-4.8) k/uL Monocytes # (0-1.0) k/uL Eosinophils # (0-0.7) k/uL Basophils # (0-0.2) k/uL PT (9.0-12.0) sec INR (<1.2) APTT (22.0-30.0) sec Sodium (137-145) mmol/L Potassium (3.5-5.1) mmol/L Chloride (98-107) mmol/L Carbon Dioxide (22-30) mmol/L Anion Gap mmol/L BUN (7-17) mg/dL Creatinine (0.52-1.04) mg/dL Est GFR (CKD-EPI)AfAm (>60 ml/min/1.73 sqM) Est GFR (CKD-EPI)NonAf (>60 ml/min/1.73 sqM) Glucose (74-99) mg/dL POC Glucose (mg/dL) 126 H 173 H (75-99) mg/dL POC Glu Instructor Adjunct Pharmacy Technician ID Khushbu Arredondo Nohemy Plasma Lactic Acid [place] (0.7-2.0) mmol/L Calcium (8.4-10.2) mg/dL Phosphorus (2.5-4.5) mg/dL Magnesium (1.6-2.3) mg/dL Iron (50-170) ug/dL TIBC (228-460) ug/dL % Saturation (12.00-45.00) Ferritin (10.0-291.0) ng/mL Total Bilirubin (0.2-1.3) mg/dL AST (14-36) U/L ALT (4-34) U/L Alkaline Phosphatase (38-126) U/L Ammonia (<30) umol/L Creatine Kinase (30-135) U/L Troponin I (0.000-0.034) ng/mL NT-Pro-B Natriuret Pep pg/mL Total Protein (6.3-8.2) g/dL Albumin (3.5-5.0) g/dL TSH (0.465-4.680) mIU/L Free T4 1.26 (0.78-2.19) ng/dL Urine Color Urine Appearance (Clear) Urine pH (5.0-8.0) Ur Specific [place] (1.001-1.035) Urine Protein (Negative) Urine Glucose (UA) (Negative) Urine Ketones (Negative) Urine Blood (Negative) Urine Nitrite (Negative) Urine Bilirubin (Negative) Urine Urobilinogen (<2.0) mg/dL Ur Leukocyte Esterase (Negative) Urine RBC (0-5) /hpf Urine WBC (0-5) /hpf Ur Squamous Epith Cells (0-4) /hpf Amorphous Sediment (None) /hpf Urine Bacteria (None) /hpf Hyaline Casts (0-2) /lpf Urine Mucus (None) /hpf 10/15/19 10/15/19 Range/Units 06:42 06:54 WBC (3.8-10.6) k/uL RBC (3.80-5.40) m/uL Hgb (11.4-16.0) gm/dL Hct (34.0-46.0) % MCV (80.0-100.0) fL MCH (25.0-35.0) pg MCHC (31.0-37.0) g/dL RDW (11.5-15.5) % Plt Count (150-450) k/uL Neutrophils % % Lymphocytes % % Monocytes % % Eosinophils % % Basophils % % Neutrophils # (1.3-7.7) k/uL Lymphocytes # (1.0-4.8) k/uL Monocytes # (0-1.0) k/uL Eosinophils # (0-0.7) k/uL Basophils # (0-0.2) k/uL PT (9.0-12.0) sec INR (<1.2) APTT (22.0-30.0) sec Sodium 141 (137-145) mmol/L Potassium 5.4 H (3.5-5.1) mmol/L Chloride 116 H (98-107) mmol/L Carbon Dioxide 19 L (22-30) mmol/L Anion Gap 6 mmol/L BUN 48 H (7-17) mg/dL Creatinine 2.87 H (0.52-1.04) mg/dL Est GFR (CKD-EPI)AfAm 19 (>60 ml/min/1.73 sqM) Est GFR (CKD-EPI)NonAf 17 (>60 ml/min/1.73 sqM) Glucose 119 H (74-99) mg/dL POC Glucose (mg/dL) 131 H (75-99) mg/dL POC Glu Instructor Adjunct Pharmacy Technician ID DunnMarge Plasma Lactic Acid [place] (0.7-2.0) mmol/L Calcium 9.0 (8.4-10.2) mg/dL Phosphorus 4.1 (2.5-4.5) mg/dL Magnesium 1.6 (1.6-2.3) mg/dL Iron (50-170) ug/dL TIBC (228-460) ug/dL % Saturation (12.00-45.00) Ferritin (10.0-291.0) ng/mL Total Bilirubin 0.6 (0.2-1.3) mg/dL AST 36 (14-36) U/L ALT 44 H (4-34) U/L Alkaline Phosphatase 103 (38-126) U/L Ammonia (<30) umol/L Creatine Kinase (30-135) U/L Troponin I (0.000-0.034) ng/mL NT-Pro-B Natriuret Pep pg/mL Total Protein 5.9 L (6.3-8.2) g/dL Albumin 3.2 L (3.5-5.0) g/dL TSH (0.465-4.680) mIU/L Free T4 (0.78-2.19) ng/dL Urine Color Urine Appearance (Clear) Urine pH (5.0-8.0) Ur Specific [place] (1.001-1.035) Urine Protein (Negative) Urine Glucose (UA) (Negative) Urine Ketones (Negative) Urine Blood (Negative) Urine Nitrite (Negative) Urine Bilirubin (Negative) Urine Urobilinogen (<2.0) mg/dL Ur Leukocyte Esterase (Negative) Urine RBC (0-5) /hpf Urine WBC (0-5) /hpf Ur Squamous Epith Cells (0-4) /hpf Amorphous Sediment (None) /hpf Urine Bacteria (None) /hpf Hyaline Casts (0-2) /lpf Urine Mucus (None) /hpf - EKG Data -: EKG Interpreted by Me (EKG is sinus bradycardia 42 NH 174 QRS 100 QTc 462) - Radiology Data Radiology results: report reviewed (Chest x-rays negative for acute disease), image reviewed Disposition Clinical Impression: Bradycardia with 31 - 40 beats per minute, Hyperkalemia, ISABEL (acute kidney injury), Altered mental status Disposition: ADMITTED IP TO THIS HOSP Condition: Fair Is patient prescribed a controlled substance at d/c from ED?: No
[2019-10-13 17:03] LABS: INR 0.9 (<1.2); Partial Thromboplastin Time 22.5 sec (22.0-30.0); Prothrombin Time 9.6 sec (9.0-12.0)
--- NOTE | 2019-10-13 17:04 | CT ---
EXAMINATION TYPE: CT brain wo con DATE OF EXAM: 10/13/2019 COMPARISON: 09/01/2019 HISTORY: weakness CT DLP: 1137.4 mGycm Automated exposure control for dose reduction was used. Exam performed without contrast. There is cerebral cortical atrophy. There is patchy hypodensity in the periventricular white matter. There is no mass effect nor midline shift. There is no sign of intracranial hemorrhage. The calvarium is intact. There is normal aeration of the mastoid sinuses. Skull base is intact. IMPRESSION: Cerebral atrophy and chronic small vessel ischemia. No acute intracranial abnormality. No change.
[2019-10-13 17:06] LABS: Albumin 3.4 g/dL (3.5-5.0); Basophils % (A) 1 %; Calcium 8.8 mg/dL (8.4-10.2); Eosinophils # (A) 0.1 k/uL (0-0.7); Eosinophils % (A) 3 %; HCT 28.2 % (34.0-46.0); HGB 9.1 gm/dL (11.4-16.0); Lactic Acid, Venous 0.7 mmol/L (0.7-2.0); Lymphocytes # (A) 0.6 k/uL (1.0-4.8); Lymphocytes % (A) 17 %; MCH 29.1 pg (25.0-35.0); MCHC 32.3 g/dL (31.0-37.0); MCV 90.1 fL (80.0-100.0); Magnesium 1.6 mg/dL (1.6-2.3); Monocytes # (A) 0.2 k/uL (0-1.0); Monocytes % (A) 6 %; Neutrophils # (A) 2.6 k/uL (1.3-7.7); Neutrophils % (A) 71 %; Phosphorus 4.3 mg/dL (2.5-4.5); Platelet Count 146 k/uL (150-450); Potassium 4.9 mmol/L (3.5-5.1); RBC 3.12 m/uL (3.80-5.40); RDW 15.3 % (11.5-15.5); Total Bilirubin 0.5 mg/dL (0.2-1.3); Total Protein 6.1 g/dL (6.3-8.2); WBC 3.6 k/uL (3.8-10.6)
--- NOTE | 2019-10-13 17:06 | XR ---
EXAMINATION TYPE: XR chest 2V DATE OF EXAM: 10/13/2019 COMPARISON: 09/01/2019 HISTORY: Weakness TECHNIQUE: FINDINGS: There is no heart failure. There is some minimal pleural reaction and atelectasis left post erior lung base. The right lung appears clear. There are chest leads. There is no heart failure. IMPRESSION: Minimal pleural reaction left lung base on the lateral view. No pulmonary consolidation o r heart failure. No adverse change.
[2019-10-13 17:31] LABS: Amorphous Sediment,Urine Occasional /hpf; Appearance,Urine Cloudy (Clear); Bacteria,Urine Occasional /hpf; Bilirubin,Urine Negative (Negative); Blood,Urine Negative (Negative); Color,Urine Yellow; Glucose,Urine (UA) Trace (Negative); Hyaline Casts,Urine 21 /lpf (0-2); Ketones,Urine Negative (Negative); Leukocyte Esterase,Urine Moderate (Negative); Mucus,Urine Rare /hpf; Nitrite,Urine Negative (Negative); PH, Urine 5.5 (5.0-8.0); Protein,Urine 3+ (Negative); RBC,Urine 2 /hpf (0-5); Specific Gravity,Urine 1.015 (1.001-1.035); Squamous Epithelial Cell,Urine 10 /hpf (0-4); Urobilinogen,Urine <2.0 mg/dL (<2.0); WBC,Urine 22 /hpf (0-5)
[2019-10-13] MEDS ORDERED: SODIUM CHLORIDE 0.9% 500 ML 500 ML IV STA (17:43)
[2019-10-13] MEDS ORDERED: LEVOFLOXACIN 750MG-D5W PMX 750 MG in DEXTROSE/WATER 1 150ML.BAG IVPB STA (17:43)
[2019-10-13 20:52] LABS: Glucose,Whole Blood 107 mg/dL (75-99)
[2019-10-13] MEDS ORDERED: ALPRAZolam 0.25 MG TAB PO PRN (23:14)
[2019-10-13] MEDS ORDERED: ZOLPIDEM 10 MG TAB PO PRN (23:14)
[2019-10-13] MEDS ORDERED: DULoxetine HCL 60 MG CAPSULE.DR PO SCH (23:15)
[2019-10-13] MEDS ORDERED: DULoxetine HCL 30 MG CAPSULE.DR PO SCH (23:15)
[2019-10-14] MEDS: hydrALAZINE HCL 50 MG TAB PO SCH ×4 (00:20→21:17)
[2019-10-14] MEDS: MAGNESIUM OXIDE 400 MG TAB PO SCH ×4 (00:20→21:17)
[2019-10-14] MEDS: SODIUM BICARBONATE TAB 650 MG TAB PO SCH ×3 (00:20→21:17)
[2019-10-14] MEDS: PIOGLITAZONE 30 MG TAB PO SCH ×2 (00:22→22:07)
[2019-10-14 07:27] LABS: Glucose,Whole Blood 137 mg/dL (75-99)
[2019-10-14] MEDS ORDERED: SODIUM CHLORIDE 0.9% 1,000 ML IV SCH ×2 (08:15→19:30)
[2019-10-14] MEDS ORDERED: METOPROLOL SUCCINATE (ER) 100 MG TAB.ER.24H PO SCH (09:00)
[2019-10-14] MEDS ORDERED: FUROSEMIDE 20 MG TAB PO SCH (09:00)
[2019-10-14] MEDS: CALCIUM ACETATE 667 MG TAB PO SCH ×3 (09:04→16:57)
[2019-10-14] MEDS: amLODIPine 10 MG TAB PO SCH (09:04)
[2019-10-14] MEDS: ASPIRIN 81 MG PO SCH (09:04)
[2019-10-14] MEDS: PANTOPRAZOLE 40 MG TABLET PO SCH (09:04)
[2019-10-14] MEDS: MULTIVITAMINS, THERA 1 EACH TAB PO SCH (09:04)
[2019-10-14] MEDS: LOSARTAN 50 MG TAB PO SCH (09:04)
--- NOTE | 2019-10-14 09:17 | P.NPCON ---
History of Present Illness - Reason for Consult acute renal failure, chronic renal failure - History of Present Illness Reason for consultation: Acute kidney injury on chronic kidney disease History of present illness: Patient is a 64-year-old female seen in renal consultation for acute kidney injury on chronic kidney disease. Patient's creatinine in September 2015 was 0.9. However she was admitted here in August with creatinine of 5.74 which improved to 2.9 on discharge on September 04. Creatinine this admission was 3.11. Patient doesn't recall why she came to the hospital. From the records is noted that she was recently admitted at another facility and was being treated for urinary tract infection. Upon discharge family felt that she was still confused and brought her back to the hospital. She is currently on antibiotics. Oral intake is good. She has been voiding. No vomiting or diarrhea. Denies use of nonsteroidals. She's currently receiving normal saline at 130 mL an hour. Does have edema in the lower extremities. No evidence of fluid overload on chest x- ray. Patient was noted to be bradycardic with heart rate in the 40s but was 59 this morning. No evidence of hypotension. In fact blood pressure is on the higher side. She does have long-standing history of diabetes mellitus. Vital signs are stable. General: The patient appeared well nourished and normally developed. HEENT: Head exam is unremarkable. Neck is without jugular venous distension. LUNGS: Breath sounds decreased. HEART: Rate and Rhythm are regular. ABDOMEN: Soft, nontender. EXTREMITITES: 1+ edema. Past Medical History Past Medical History: Coronary Artery Disease (CAD), CVA/TIA, Diabetes Mellitus, GERD/Reflux, Hyperlipidemia, Hypertension, Sleep Apnea/CPAP/BIPAP Additional Past Medical History / Comment(s): cva 2012, arthritis, polyps, high heart rate at times with short bursts of V tach History of Any Multi-Drug Resistant Organisms: None Reported Past Surgical History: Heart Catheterization Additional Past Surgical History / Comment(s): bilateral carotid endarct, Lumpectomy right breast benign, Carpel Tunnel Surgery bilat wrists, pylondial cyst removal, vericose vein removal, bilateral lens implants Past Anesthesia/Blood Transfusion Reactions: Previous Problems w/ Anesthesia Additional Past Anesthesia/Blood Transfusion Reaction / Comment(s): had trouble waking up after surgery Past Psychological History: Anxiety, Depression Smoking Status: Former smoker Past Alcohol Use History: Occasional Past Drug Use History: None Reported - Past Family History Daughter(s) Additional Family Medical History / Comment(s): fast heart rate Medications and Allergies Home Medications Medication Instructions Recorded Confirmed Type ALPRAZolam [Xanax] 0.25 mg PO BID PRN 05/07/14 10/13/19 History Multivitamins, Thera [Multivitamin 1 tab PO DAILY 05/07/14 10/13/19 History (formulary)] Zolpidem [Ambien] 10 mg PO HS PRN 05/07/14 10/13/19 History amLODIPine [Norvasc] 10 mg PO DAILY 05/07/14 10/13/19 History Aspirin EC [Ecotrin Low Dose] 81 mg PO DAILY 09/19/15 10/13/19 History Furosemide [Lasix] 20 mg PO DAILY 09/01/19 10/13/19 History Magnesium Oxide [Day] 500 mg PO TID 09/01/19 10/13/19 History Metoprolol Succinate [Toprol XL] 200 mg PO DAILY 09/01/19 10/13/19 History Pioglitazone [Actos] 30 mg PO HS 09/01/19 10/13/19 History Pantoprazole [Protonix] 40 mg PO AC-BRKFST 30 Days #30 09/05/19 10/13/19 Rx tablet. Sodium Bicarbonate Tab 650 mg PO BID 30 Days #60 tab 09/05/19 10/13/19 Rx hydrALAZINE HCL [Apresoline] 50 mg PO TID 30 Days #90 tab 09/05/19 10/13/19 Rx Calcium Acetate [PhosLo] 667 mg PO AC-TID 09/07/19 10/13/19 History DULoxetine HCL [Cymbalta] 30 mg PO DIRECTED 10/13/19 10/13/19 History DULoxetine HCL [Cymbalta] 60 mg PO DIRECTED 10/13/19 10/13/19 History Losartan Potassium 50 mg PO DAILY 10/13/19 10/13/19 History Allergies Allergy/AdvReac Type Severity Reaction Status Date / Time captopril Allergy Cough Verified 10/13/19 18:58 cephalexin monohydrate Allergy Rash/Hives Verified 10/13/19 18:58 [From Keflex] Penicillins Allergy Rash/Hives Verified 10/13/19 18:58 Physical Exam Vitals: Vital Signs Temp Pulse Pulse Resp BP BP Pulse Ox 10/14/19 06:05 97.6 F 59 L 12 184/76 96 10/14/19 02:43 97.5 F L 51 L 17 175/74 96 10/13/19 23:09 94.6 F L 49 L 16 165/77 10/13/19 20:44 44 L 15 158/72 96 10/13/19 18:31 97.1 F L 44 L 18 123/74 96 10/13/19 14:52 96.6 F L 42 L 16 105/54 98 Intake and Output 10/13/19 10/14/19 10/14/19 22:59 06:59 14:59 Output Total 1 300 Balance -1 -300 Output: Urine 1 300 Other: Voiding Method Bedside Commode # Voids 1 1 Weight 99.79 kg Results - Lab Results Most recent lab results Calcium 8.8 mg/dL (8.4-10.2) 10/13/19 16:38 Phosphorus 4.3 mg/dL (2.5-4.5) 10/13/19 16:38 Magnesium 1.6 mg/dL (1.6-2.3) 10/13/19 16:38 10/13/19 16:38 10/13/19 16:38 Assessment and Plan Plan: Assessment: 1. Acute kidney injury secondary to ATN secondary to infection. Creatinine 3.11 on admission. No evidence of hydronephrosis noted on ultrasound done in August 2019. 2. Chronic kidney disease. Need to establish baseline. Creatinine was 0.9 in September 2015 but recently has been near 3. Etiology is diabetic kidney disease. 3. UTI maintained on antibiotics. 4. Encephalopathy likely related to UTI. No acute changes noted on brain CT. 5. Chronic kidney disease mineral bone disease maintained on PhosLo. 6. Hypertension with chronic kidney disease. Blood pressure on the higher side. 7. Metabolic acidosis secondary to chronic kidney disease maintained on oral bicarbonate. 8. Anemia of chronic kidney disease. Rule out iron deficiency. Plan: Hep-Lock IV fluids. Check bladder scan to rule out urinary retention. Maintain current antihypertensives. Increase hydralazine to 100 mg 3 times daily. Follow-up cultures. Check iron studies. Continue to monitor renal function and urine output. Check phosphorus level. Thank you for the consultation. I will continue to follow the patient with you during her hospital stay.
--- NOTE | 2019-10-14 10:10 | P.CRDCN ---
History of Present Illness Consult date: 10/14/19 Chief complaint: Change in mental status History of present illness: This is a 64-year-old female patient who was somewhat poor historian with a past medical history significant for coronary artery disease, diabetes, hypertension, dyslipidemia, obesity and sleep apnea was admitted to the hospital with a change in mental status. The patient is somewhat is a poor historian. The patient was initially presented to [facility] and she was found to have a change in mental status and subsequently she was transferred to [facility]. We consulted to see the patient because off sinus bradycardia. The patient baseline heart rate has been in the 40s. She is on Toprol-XL at 200 mg by mouth daily. The patient denies any symptoms of chest pain or chest discomfort or shortness of breath. She denies any symptoms of dizziness or lightheadedness or syncope. She was found to be in acute renal failure and nephrology seen the patient and currently on the case. I did review the workup which included an EKG showed profound sinus bradycardia with heart rate in the 40s without any significant ST or T-wave abnormalities. A decrease the dose of Toprol-XL to 50 mg by mouth daily. I'm going to obtain a TSH also I am going to obtain an echocardiogram was Doppler. We'll continue following up with the patient Past Medical History Past Medical History: Coronary Artery Disease (CAD), CVA/TIA, Diabetes Mellitus, GERD/Reflux, Hyperlipidemia, Hypertension, Sleep Apnea/CPAP/BIPAP Additional Past Medical History / Comment(s): cva 2012, arthritis, polyps, high heart rate at times with short bursts of V tach History of Any Multi-Drug Resistant Organisms: None Reported Past Surgical History: Heart Catheterization Additional Past Surgical History / Comment(s): bilateral carotid endarct, Lumpectomy right breast benign, Carpel Tunnel Surgery bilat wrists, pylondial cyst removal, vericose vein removal, bilateral lens implants Past Anesthesia/Blood Transfusion Reactions: Previous Problems w/ Anesthesia Additional Past Anesthesia/Blood Transfusion Reaction / Comment(s): had trouble waking up after surgery Past Psychological History: Anxiety, Depression Smoking Status: Former smoker Past Alcohol Use History: Occasional Past Drug Use History: None Reported - Past Family History Daughter(s) Additional Family Medical History / Comment(s): fast heart rate Medications and Allergies Home Medications Medication Instructions Recorded Confirmed Type ALPRAZolam [Xanax] 0.25 mg PO BID PRN 05/07/14 10/13/19 History Multivitamins, Thera [Multivitamin 1 tab PO DAILY 05/07/14 10/13/19 History (formulary)] Zolpidem [Ambien] 10 mg PO HS PRN 05/07/14 10/13/19 History amLODIPine [Norvasc] 10 mg PO DAILY 05/07/14 10/13/19 History Aspirin EC [Ecotrin Low Dose] 81 mg PO DAILY 09/19/15 10/13/19 History Furosemide [Lasix] 20 mg PO DAILY 09/01/19 10/13/19 History Magnesium Oxide [Day] 500 mg PO TID 09/01/19 10/13/19 History Metoprolol Succinate [Toprol XL] 200 mg PO DAILY 09/01/19 10/13/19 History Pioglitazone [Actos] 30 mg PO HS 09/01/19 10/13/19 History Pantoprazole [Protonix] 40 mg PO AC-BRKFST 30 Days #30 09/05/19 10/13/19 Rx tablet. Sodium Bicarbonate Tab 650 mg PO BID 30 Days #60 tab 09/05/19 10/13/19 Rx hydrALAZINE HCL [Apresoline] 50 mg PO TID 30 Days #90 tab 09/05/19 10/13/19 Rx Calcium Acetate [PhosLo] 667 mg PO AC-TID 09/07/19 10/13/19 History DULoxetine HCL [Cymbalta] 30 mg PO DIRECTED 10/13/19 10/13/19 History DULoxetine HCL [Cymbalta] 60 mg PO DIRECTED 10/13/19 10/13/19 History Losartan Potassium 50 mg PO DAILY 10/13/19 10/13/19 History Allergies Allergy/AdvReac Type Severity Reaction Status Date / Time captopril Allergy Cough Verified 10/13/19 18:58 cephalexin monohydrate Allergy Rash/Hives Verified 10/13/19 18:58 [From Keflex] Penicillins Allergy Rash/Hives Verified 10/13/19 18:58 Physical Exam Vitals: Vital Signs Temp Pulse Pulse Resp BP BP Pulse Ox 10/14/19 09:07 97.7 F 57 L 163/82 95 10/14/19 06:05 97.6 F 59 L 12 184/76 96 10/14/19 02:43 97.5 F L 51 L 17 175/74 96 10/13/19 23:09 94.6 F L 49 L 16 165/77 10/13/19 20:44 44 L 15 158/72 96 10/13/19 18:31 97.1 F L 44 L 18 123/74 96 10/13/19 14:52 96.6 F L 42 L 16 105/54 98 Intake and Output 10/13/19 10/14/19 10/14/19 22:59 06:59 14:59 Output Total 1 600 Balance -1 -600 Output: Urine 1 300 Post Void Residual 300 Other: Voiding Method Bedside Commode # Voids 1 1 Weight 99.79 kg - Constitutional General appearance: no acute distress - Respiratory Respiratory: bilateral: CTA - Cardiovascular Rhythm: regular Heart sounds: normal: S1, S2 Results 10/13/19 16:38 10/13/19 16:38 Cardiac Enzymes 10/13/19 10/13/19 Range/Units 16:38 16:38 AST 20 (14-36) U/L Troponin I <0.012 (0.000-0.034) ng/mL Coagulation 10/13/19 Range/Units 16:38 PT 9.6 (9.0-12.0) sec APTT 22.5 (22.0-30.0) sec CBC 10/13/19 Range/Units 16:38 WBC 3.6 L (3.8-10.6) k/uL RBC 3.12 L (3.80-5.40) m/uL Hgb 9.1 L (11.4-16.0) gm/dL Hct 28.2 L (34.0-46.0) % Plt Count 146 L (150-450) k/uL Comprehensive Metabolic Panel 10/13/19 Range/Units 16:38 Sodium 136 L (137-145) mmol/L Potassium 4.9 (3.5-5.1) mmol/L Chloride 109 H (98-107) mmol/L Carbon Dioxide 20 L (22-30) mmol/L BUN 50 H (7-17) mg/dL Creatinine 3.11 H (0.52-1.04) mg/dL Glucose 116 H (74-99) mg/dL Calcium 8.8 (8.4-10.2) mg/dL AST 20 (14-36) U/L ALT 24 (4-34) U/L Alkaline Phosphatase 84 (38-126) U/L Total Protein 6.1 L (6.3-8.2) g/dL Albumin 3.4 L (3.5-5.0) g/dL Current Medications Generic Name Dose Route Start Last Admin Trade Name Freq PRN Reason Stop Dose Admin Alprazolam 0.25 mg 10/13/19 23:14 Xanax PO BID PRN Anxiety Amlodipine Besylate 10 mg 10/14/19 09:00 10/14/19 09:04 Norvasc PO 10 mg DAILY RANDI Administration Aspirin 81 mg 10/14/19 09:00 10/14/19 09:04 Aspirin PO 81 mg DAILY [facility] Administration Calcium Acetate 667 mg 10/14/19 07:30 10/14/19 09:04 Phoslo PO 667 mg AC-TID RANDI Administration Furosemide 20 mg 10/14/19 09:00 10/14/19 09:04 Lasix PO 20 mg DAILY [facility] Administration Hydralazine HCl 100 mg 10/14/19 16:00 Apresoline PO TID [facility] Levofloxacin 750 mg/ IV 150 mls @ 100 mls/hr 10/14/19 18:00 Solution IVPB Q24H [facility] Insulin Aspart 0 unit 10/14/19 12:30 Novolog SQ ACHS [facility] Protocol Losartan Potassium 50 mg 10/14/19 09:00 10/14/19 09:04 Cozaar PO 50 mg DAILY RANDI Administration Magnesium Oxide 400 mg 10/13/19 23:15 10/14/19 09:04 Mag-Ox PO 400 mg TID [facility] Administration Metoprolol Succinate 100 mg 10/15/19 09:00 Toprol Xl PO DAILY [facility] Multivitamins 1 each 10/14/19 12:00 10/14/19 09:04 Theragran PO 1 each DAILY@1200 [facility] Administration Pantoprazole Sodium 40 mg 10/14/19 07:30 10/14/19 09:04 Protonix PO 40 mg AC-BRKFST RANDI Administration Pioglitazone HCl 30 mg 10/13/19 23:30 10/14/19 00:22 Actos PO 30 mg HS [facility] Administration Sodium Bicarbonate 650 mg 10/13/19 23:30 10/14/19 09:04 Sodium Bicarbonate Tab PO 650 mg BID RANDI Administration Zolpidem Tartrate 10 mg 10/13/19 23:14 Ambien PO HS PRN sleep Intake and Output 10/13/19 10/14/19 10/14/19 22:59 06:59 14:59 Output Total 1 600 Balance -1 -600 Output: Urine 1 300 Post Void Residual 300 Other: Voiding Method Bedside Commode # Voids 1 1 Weight 99.79 kg 10/13/19 16:38 10/13/19 16:38 Assessment and Plan Assessment: Assessment #1 change in mental status #2 acute renal failure #3 sinus bradycardia #4 coronary artery disease #5 multiple comorbid conditions Plan #1 decrease the dose of Toprol-XL #2 obtain an echocardiogram was Doppler #3 obtain TSH #4 follow-up with the patient
[2019-10-14 12:02] LABS: Glucose,Whole Blood 186 mg/dL (75-99)
[2019-10-14] MEDS: hydrALAZINE HCL 20 MG/ML 1 ML VIAL IVP PRN (13:36)
[2019-10-14] MEDS: INSULIN ASPART (NovoLOG) 100 UNIT/ML VIAL SQ SCH ×3 (13:36→21:35)
[2019-10-14 17:22] LABS: Glucose,Whole Blood 126 mg/dL (75-99)
[2019-10-14] MEDS ORDERED: LEVOFLOXACIN 750MG-D5W PMX 750 MG in DEXTROSE/WATER 1 150ML.BAG IVPB SCH (18:00)
[2019-10-14 18:15] LABS: % Iron Saturation 20.62 (12.00-45.00)
[2019-10-14] MEDS ORDERED: CALCIUM CARBONATE 500 MG CHEWABLE PO PRN (19:20)
[2019-10-14] MEDS ORDERED: MAGNESIUM HYDROXIDE 2,400 MG/10 ML CUP PO PRN (19:20)
[2019-10-14] MEDS ORDERED: LACTULOSE 20 GM/30 ML CUP PO PRN (19:20)
[2019-10-14] MEDS ORDERED: ONDANSETRON 4 MG/2 ML VIAL IVP PRN (19:20)
[2019-10-14] MEDS ORDERED: NALOXONE 0.4 MG/ML 1 ML VIAL IV PRN (19:20)
[2019-10-14] MEDS ORDERED: MAG HYDROX/AL HYDROX/SIMETH 30 ML CUP PO PRN (19:20)
--- NOTE | 2019-10-14 19:26 | P.HPIM ---
History of Present Illness H&P Date: 10/14/19 Chief Complaint: Tired History of presenting complaint: This is a [address] Kristy Ortega. Patient was just at [facility] from October 08. Admitted there with a creatinine of 3.6. Prior to discharge a day ago creatinine was down to 3.2. Seen by Dr. Bocanegra. Renal ultrasound did not show any major abnormality. Corticomedullary differentiation was maintained. Patient came home and felt tired lethargic. Rundown. Appetite has been okay. [place] cold. She decided to come back in again. Patient has known diabetes. [place] to have diabetic nephropathy. Chronic stable medical conditions include diabetes, GERD, hypertension, hyperlipidemia, obstructive sleep apnea. Patient last labs here on September 04 were 2.93. Also found to be bradycardic. Patient does use a walker. Review of systems: GEN.: Tired EYES: None HEENT: None NECK: None RESPIRATORY: None CARDIOVASCULAR: None GASTROINTESTINAL: None GENITOURINARY: None MUSCULOSKELETAL: Some joint pain LYMPHATICS: None HEMATOLOGICAL: None PSYCHIATRY: Forgetful NEUROLOGICAL: None Past medical history to include: Coronary artery disease, stroke, diabetes, GERD, hypertension, hyperlipidemia, obstructive sleep apnea, arthritis stroking 2011 Social history: This smoke in the past. Alcohol occasional. Lives alone. Family history: Reviewed, noncontributory to presentation Physical examination: VITAL SIGNS: 97.7, 50, 16, 109/60, 98% room air GENERAL: BMI 33.5, laying in bed, lethargic awake. EYES: Pupils equal. Conjunctiva normal. HEENT: External appearance of nose and ears normal, oral cavity grossly normal. NECK: JVD not raised; masses not palpable. HEART: First and second heart sounds are normal; no edema. LUNGS: Respiratory rate normal; decreased breath sounds. ABDOMEN: Soft, nontender, liver spleen not palpable, no masses palpable. PSYCH: [Tired lethargic able to answer simple questions l. MUSCULAR skeletal: Evidence of OA in the hands NEUROLOGICAL: Cranial nerves grossly intact; no facial asymmetry, power and sensation grossly intact. LYMPHATICS: No lymph nodes palpable in the axilla and neck INVESTIGATIONS, reviewed in the clinical context: White count 3.6 hemoglobin 9.1 platelets 146 potassium 4.9 bun 50 creatinine 3.11 UA showing moderate leukoesterase, WBC, tense, 7 epithelial cells EKG tracing personally reviewed by me-sinus bradycardia Chest x-ray film personally reviewed by me-borderline cardiomegaly Assessment: -Significant bradycardia patient is on Toprol-XL 200 mg. Cutback on the dose. -Acute UTI from cystitis -Obesity BMI 32.5 -Depression otherwise specified -Metabolic encephalopathy could be from medications. Patient of the hefty dose of Ambien. Cutback on the same. -GERD -Essential hypertension -Diabetes mellitus type 2 -Diabetic nephropathy, CK D stage IV -Metabolic acidosis from kidney failure Plan: IV antibiotics. Stop Ambien and Xanax.. Cutback the dose of Lopressor. Follow Accu-Cheks. Check 2-D echocardiogram. Fall precautions. PTOT. Follow Accu- Cheks. Nephrology consult . Past Medical History Past Medical History: Coronary Artery Disease (CAD), CVA/TIA, Diabetes Mellitus, GERD/Reflux, Hyperlipidemia, Hypertension, Sleep Apnea/CPAP/BIPAP Additional Past Medical History / Comment(s): cva 2012, arthritis, polyps, high heart rate at times with short bursts of V tach History of Any Multi-Drug Resistant Organisms: None Reported Past Surgical History: Heart Catheterization Additional Past Surgical History / Comment(s): bilateral carotid endarct, Lumpectomy right breast benign, Carpel Tunnel Surgery bilat wrists, pylondial cyst removal, vericose vein removal, bilateral lens implants Past Anesthesia/Blood Transfusion Reactions: Previous Problems w/ Anesthesia Additional Past Anesthesia/Blood Transfusion Reaction / Comment(s): had trouble waking up after surgery Past Psychological History: Anxiety, Depression Smoking Status: Former smoker Past Alcohol Use History: Occasional Past Drug Use History: None Reported - Past Family History Daughter(s) Additional Family Medical History / Comment(s): fast heart rate Medications and Allergies Home Medications Medication Instructions Recorded Confirmed Type ALPRAZolam [Xanax] 0.25 mg PO BID PRN 05/07/14 10/13/19 History Multivitamins, Thera [Multivitamin 1 tab PO DAILY 05/07/14 10/13/19 History (formulary)] Zolpidem [Ambien] 10 mg PO HS PRN 05/07/14 10/13/19 History amLODIPine [Norvasc] 10 mg PO DAILY 05/07/14 10/13/19 History Aspirin EC [Ecotrin Low Dose] 81 mg PO DAILY 09/19/15 10/13/19 History Furosemide [Lasix] 20 mg PO DAILY 09/01/19 10/13/19 History Magnesium Oxide [Day] 500 mg PO TID 09/01/19 10/13/19 History Metoprolol Succinate [Toprol XL] 200 mg PO DAILY 09/01/19 10/13/19 History Pioglitazone [Actos] 30 mg PO HS 09/01/19 10/13/19 History Pantoprazole [Protonix] 40 mg PO AC-BRKFST 30 Days #30 09/05/19 10/13/19 Rx tablet. Sodium Bicarbonate Tab 650 mg PO BID 30 Days #60 tab 09/05/19 10/13/19 Rx hydrALAZINE HCL [Apresoline] 50 mg PO TID 30 Days #90 tab 09/05/19 10/13/19 Rx Calcium Acetate [PhosLo] 667 mg PO AC-TID 09/07/19 10/13/19 History DULoxetine HCL [Cymbalta] 30 mg PO DIRECTED 10/13/19 10/13/19 History DULoxetine HCL [Cymbalta] 60 mg PO DIRECTED 10/13/19 10/13/19 History Losartan Potassium 50 mg PO DAILY 10/13/19 10/13/19 History Allergies Allergy/AdvReac Type Severity Reaction Status Date / Time captopril Allergy Cough Verified 10/13/19 18:58 cephalexin monohydrate Allergy Rash/Hives Verified 10/13/19 18:58 [From Keflex] Penicillins Allergy Rash/Hives Verified 10/13/19 18:58 Physical Exam Vitals: Vital Signs Temp Pulse Pulse Resp BP BP Pulse Ox 10/14/19 09:07 97.7 F 57 L 163/82 95 10/14/19 06:05 97.6 F 59 L 12 184/76 96 10/14/19 02:43 97.5 F L 51 L 17 175/74 96 10/13/19 23:09 94.6 F L 49 L 16 165/77 10/13/19 20:44 44 L 15 158/72 96 10/13/19 18:31 97.1 F L 44 L 18 123/74 96 10/13/19 14:52 96.6 F L 42 L 16 105/54 98 Intake and Output 10/13/19 10/14/19 10/14/19 22:59 06:59 14:59 Output Total 1 600 Balance -1 -600 Output: Urine 1 300 Post Void Residual 300 Other: Voiding Method Bedside Commode # Voids 1 1 Weight 99.79 kg Results CBC & Chem 7: 10/13/19 16:38 10/13/19 16:38 Labs: Abnormal Lab Results - Last 24 Hours (Table) 10/13/19 10/13/19 10/13/19 Range/Units 16:38 16:38 17:19 WBC 3.6 L (3.8-10.6) k/uL RBC 3.12 L (3.80-5.40) m/uL Hgb 9.1 L (11.4-16.0) gm/dL Hct 28.2 L (34.0-46.0) % Plt Count 146 L (150-450) k/uL Lymphocytes # 0.6 L (1.0-4.8) k/uL Sodium 136 L (137-145) mmol/L Chloride 109 H (98-107) mmol/L Carbon Dioxide 20 L (22-30) mmol/L BUN 50 H (7-17) mg/dL Creatinine 3.11 H (0.52-1.04) mg/dL Glucose 116 H (74-99) mg/dL POC Glucose (mg/dL) (75-99) mg/dL Creatine Kinase 27 L (30-135) U/L Total Protein 6.1 L (6.3-8.2) g/dL Albumin 3.4 L (3.5-5.0) g/dL Urine Appearance Cloudy H (Clear) Urine Protein 3+ H (Negative) Urine Glucose (UA) Trace H (Negative) Ur Leukocyte Esterase Moderate H (Negative) Urine WBC 22 H (0-5) /hpf Ur Squamous Epith Cells 10 H (0-4) /hpf Amorphous Sediment Occasional H (None) /hpf Urine Bacteria Occasional H (None) /hpf Hyaline Casts 21 H (0-2) /lpf Urine Mucus Rare H (None) /hpf 10/13/19 10/14/19 Range/Units 20:46 07:15 WBC (3.8-10.6) k/uL RBC (3.80-5.40) m/uL Hgb (11.4-16.0) gm/dL Hct (34.0-46.0) % Plt Count (150-450) k/uL Lymphocytes # (1.0-4.8) k/uL Sodium (137-145) mmol/L Chloride (98-107) mmol/L Carbon Dioxide (22-30) mmol/L BUN (7-17) mg/dL Creatinine (0.52-1.04) mg/dL Glucose (74-99) mg/dL POC Glucose (mg/dL) 107 H 137 H (75-99) mg/dL Creatine Kinase (30-135) U/L Total Protein (6.3-8.2) g/dL Albumin (3.5-5.0) g/dL Urine Appearance (Clear) Urine Protein (Negative) Urine Glucose (UA) (Negative) Ur Leukocyte Esterase (Negative) Urine WBC (0-5) /hpf Ur Squamous Epith Cells (0-4) /hpf Amorphous Sediment (None) /hpf Urine Bacteria (None) /hpf Hyaline Casts (0-2) /lpf Urine Mucus (None) /hpf Microbiology - Last 24 Hours (Table) 10/13/19 17:19 Urine Culture - Preliminary Urine,Voided Thrombosis Risk Factor Assmnt - Choose All That Apply Any of the Below Risk Factors Present?: Yes Each Factor Represents 1 point: Obesity (BMI >25) Other Risk Factors: Yes Each Risk Factor Represents 2 Points: Age 61-74 years Other congenital or acquired thrombophilia - If yes, enter type in comment: No Thrombosis Risk Factor Assessment Total Risk Factor Score: 3 Thrombosis Risk Factor Assessment Level: Moderate Risk
[2019-10-14 21:24] LABS: Glucose,Whole Blood 173 mg/dL (75-99)
[2019-10-14] MEDS ORDERED: CEPHALEXIN 250 MG CAP PO SCH (22:00)
[2019-10-15 06:56] LABS: Glucose,Whole Blood 131 mg/dL (75-99)
[2019-10-15 07:43] LABS: Albumin 3.2 g/dL (3.5-5.0); Magnesium 1.6 mg/dL (1.6-2.3); Phosphorus 4.1 mg/dL (2.5-4.5); Total Bilirubin 0.6 mg/dL (0.2-1.3); Total Protein 5.9 g/dL (6.3-8.2)
[2019-10-15 07:44] LABS: Potassium 5.4 mmol/L (3.5-5.1)
[2019-10-15] MEDS ORDERED: SODIUM BICARB 8.4% 50 ML SYR (1 MEQ/ML) IV STA (07:47)
[2019-10-15] MEDS ORDERED: SODIUM FERRIC GLUCONAT-SUCROSE 125 MG in SODIUM CHLORIDE 0.9% 100 ML IVPB ONE (08:23)
--- NOTE | 2019-10-15 08:25 | P.PN ---
Subjective Patient is seen in follow-up for acute kidney injury and chronic kidney disease. Renal function better today. Oral intake good. No vomiting or diarrhea. Good urine output. Vital signs are stable. General: The patient appeared well nourished and normally developed. HEENT: Head exam is unremarkable. Neck is without jugular venous distension. LUNGS: Lungs are clear to auscultation and percussion. Breath sounds decreased. HEART: Rate and Rhythm are regular. ABDOMEN: Soft, nontender. EXTREMITITES: Trace edema. Objective - Vital Signs Vital signs: Vital Signs Temp 94.3 F L 10/15/19 06:17 Pulse 50 L 10/15/19 04:54 Resp 14 10/15/19 04:54 BP 183/64 10/15/19 04:54 Pulse Ox 93 L 10/15/19 04:54 Intake & Output 10/14/19 10/15/19 10/15/19 18:59 06:59 18:59 Intake Total 500 Output Total 600 Balance -100 Weight 99.79 kg Intake: Oral 500 Output: Urine 300 Post Void Residual 300 Other: Voiding Method Bedside Commode Bedside Commode # Voids 1 1 - Labs CBC & Chem 7: 10/13/19 16:38 10/15/19 06:42 Labs: Abnormal Lab Results - Last 24 Hours (Table) 10/14/19 10/14/19 10/14/19 Range/Units 11:59 16:57 21:21 Potassium (3.5-5.1) mmol/L Chloride (98-107) mmol/L Carbon Dioxide (22-30) mmol/L BUN (7-17) mg/dL Creatinine (0.52-1.04) mg/dL Glucose (74-99) mg/dL POC Glucose (mg/dL) 186 H 126 H 173 H (75-99) mg/dL ALT (4-34) U/L Total Protein (6.3-8.2) g/dL Albumin (3.5-5.0) g/dL 10/15/19 10/15/19 Range/Units 06:42 06:54 Potassium 5.4 H (3.5-5.1) mmol/L Chloride 116 H (98-107) mmol/L Carbon Dioxide 19 L (22-30) mmol/L BUN 48 H (7-17) mg/dL Creatinine 2.87 H (0.52-1.04) mg/dL Glucose 119 H (74-99) mg/dL POC Glucose (mg/dL) 131 H (75-99) mg/dL ALT 44 H (4-34) U/L Total Protein 5.9 L (6.3-8.2) g/dL Albumin 3.2 L (3.5-5.0) g/dL Microbiology - Last 24 Hours (Table) 10/13/19 17:19 Urine Culture - Final Urine,Voided Assessment and Plan Plan: Assessment: 1. Acute kidney injury secondary to ATN secondary to infection. Creatinine 3.11 on admission and is 2.87 today. No evidence of hydronephrosis noted on ultrasound done in August 2019. No evidence of urinary retention. 2. Chronic kidney disease. Need to establish baseline. Creatinine was 0.9 in September 2015 but recently has been near 3. Etiology is diabetic kidney disease. Does have proteinuria. Further workup outpatient. 3. UTI maintained on antibiotics. 4. Encephalopathy likely related to UTI. No acute changes noted on brain CT. 5. Chronic kidney disease mineral bone disease maintained on PhosLo. 6. Hypertension with chronic kidney disease. Better controlled. 7. Metabolic acidosis secondary to chronic kidney disease maintained on oral bicarbonate. 8. Anemia of chronic kidney disease. Iron deficiency noted. Plan: Hep-Lock IV fluids. Maintain current antihypertensives. 2 A sodium bicarbonate IV push now. IV Ferrlecit once today. Follow-up cultures. Continue to monitor renal function and urine output. Phosphorus normal.
[2019-10-15] MEDS: hydrALAZINE HCL 50 MG TAB PO SCH ×3 (08:29→20:59)
[2019-10-15] MEDS: CALCIUM ACETATE 667 MG TAB PO SCH ×3 (08:29→17:40)
[2019-10-15] MEDS: amLODIPine 10 MG TAB PO SCH (08:30)
[2019-10-15] MEDS: SODIUM BICARBONATE TAB 650 MG TAB PO SCH ×2 (08:30→20:19)
[2019-10-15] MEDS: CEFDINIR 300 MG CAP PO SCH ×2 (08:30→20:18)
[2019-10-15] MEDS: PANTOPRAZOLE 40 MG TABLET PO SCH (08:30)
[2019-10-15] MEDS: ASPIRIN 81 MG PO SCH (08:30)
[2019-10-15] MEDS: LOSARTAN 50 MG TAB PO SCH (08:30)
[2019-10-15] MEDS: MAGNESIUM OXIDE 400 MG TAB PO SCH ×3 (08:30→20:59)
[2019-10-15] MEDS: INSULIN ASPART (NovoLOG) 100 UNIT/ML VIAL SQ SCH ×4 (08:31→20:18)
[2019-10-15] MEDS ORDERED: METOPROLOL SUCCINATE (ER) 100 MG TAB.ER.24H PO SCH (09:00)
[2019-10-15 11:14] LABS: Glucose,Whole Blood 184 mg/dL (75-99)
[2019-10-15] MEDS: MULTIVITAMINS, THERA 1 EACH TAB PO SCH (13:30)
--- NOTE | 2019-10-15 14:31 | P.PN ---
Subjective Progress Note Date: 10/15/19 Principal diagnosis: Sinus bradycardia This is a 64-year-old female patient who was somewhat poor historian with a past medical history significant for coronary artery disease, diabetes, hypertension, dyslipidemia, obesity and sleep apnea was admitted to the hospital with a change in mental status. The patient is somewhat is a poor historian. The patient was initially presented to [facility] and she was found to have a change in mental status and subsequently she was transferred to [facility]. We consulted to see the patient because off sinus bradycardia. The patient baseline heart rate has been in the 40s. She is on Toprol-XL at 200 mg by mouth daily. The patient denies any symptoms of chest pain or chest discomfort or shortness of breath. She denies any symptoms of dizziness or lightheadedness or syncope. She was found to be in acute renal failure and nephrology seen the patient and currently on the case. I did review the workup which included an EKG showed profound sinus bradycardia with heart rate in the 40s without any significant ST or T-wave abnormalities. The patient was seen today October [id number]. She denies any dizziness or lightheadedness. She continues to be bradycardic with heart rate in the 50s. The Toprol-XL is on hold at this point. The TSH was checked and came in to be unremarkable. Objective - Vital Signs Vital signs: Vital Signs Temp 97.7 F 10/15/19 11:42 Pulse 49 L 10/15/19 11:42 Resp 16 10/15/19 11:42 BP 135/73 10/15/19 11:42 Pulse Ox 91 L 10/15/19 11:42 Intake & Output 10/14/19 10/15/19 10/15/19 18:59 06:59 18:59 Intake Total 500 Output Total 600 Balance -100 Weight 99.79 kg Intake: Oral 500 Output: Urine 300 Post Void Residual 300 Other: Voiding Method Bedside Commode Bedside Commode Bedside Commode # Voids 1 1 - Constitutional General appearance: Present: no acute distress - Respiratory Respiratory: bilateral: CTA - Cardiovascular Rhythm: regular Heart sounds: normal: S1, S2 - Labs CBC & Chem 7: 10/13/19 16:38 10/15/19 12:35 Labs: Abnormal Lab Results - Last 24 Hours (Table) 10/14/19 10/14/19 10/15/19 Range/Units 16:57 21:21 06:42 Potassium 5.4 H (3.5-5.1) mmol/L Chloride 116 H (98-107) mmol/L Carbon Dioxide 19 L (22-30) mmol/L BUN 48 H (7-17) mg/dL Creatinine 2.87 H (0.52-1.04) mg/dL Glucose 119 H (74-99) mg/dL POC Glucose (mg/dL) 126 H 173 H (75-99) mg/dL ALT 44 H (4-34) U/L Total Protein 5.9 L (6.3-8.2) g/dL Albumin 3.2 L (3.5-5.0) g/dL 10/15/19 10/15/19 10/15/19 Range/Units 06:54 11:11 12:35 Potassium 5.3 H (3.5-5.1) mmol/L Chloride (98-107) mmol/L Carbon Dioxide (22-30) mmol/L BUN (7-17) mg/dL Creatinine (0.52-1.04) mg/dL Glucose (74-99) mg/dL POC Glucose (mg/dL) 131 H 184 H (75-99) mg/dL ALT (4-34) U/L Total Protein (6.3-8.2) g/dL Albumin (3.5-5.0) g/dL Microbiology - Last 24 Hours (Table) 10/13/19 17:19 Urine Culture - Final Urine,Voided Assessment and Plan Assessment: Assessment #1 change in mental status #2 acute renal failure #3 sinus bradycardia #4 coronary artery disease #5 multiple comorbid conditions Plan #1 continue holding the Toprol-XL #2 follow-up with the patient
--- NOTE | 2019-10-15 15:24 | ECHOF ---
Referral Reason:Bradycardic MEASUREMENTS -------- HEIGHT: 172.7 cm WEIGHT: 99.8 kg BP: 175/71 RVIDd: 4.2 cm (< 3.3) IVSd: 1.4 cm (0.6 - 1.1) LVIDd: 3.9 cm (3.9 - 5.3) LVPWd: 1.6 cm (0.6 - 1.1) IVSs: 1.9 cm LVIDs: 3.1 cm LVPWs: 1.9 cm LAESV Index (A-L): 34.66 ml/m Ao Diam: 2.8 cm (2.0 - 3.7) AV Cusp: 1.9 cm (1.5 - 2.6) MV EXCURSION: 17.701 mm (> 18.000) MV EF SLOPE: 49 mm/s (70 - 150) EPSS: 0.3 cm MV E Rafita: 1.13 m/s MV DecT: 329 ms MV A Rafita: 0.92 m/s MV E/A Ratio: 1.22 RAP: 5.00 mmHg RVSP: 31.50 mmHg FINDINGS -------- Resting bradycardia (HR<60bpm). This was a technically difficult study with suboptimal apical views. The left ventricular size is normal. There is moderate concentric left ventricular hypertrophy. O verall left ventricular systolic function is normal with, an EF between 55 - 60 %. The right ventricle is moderately enlarged. LA is midly dilated 29-33ml/m2. The right atrium was not well visualized. 5.0mg of Lumason was utilized for enhancement of images Interatrial and interventricular septum intact. There is no evidence of aortic regurgitation. There is no evidence of aortic stenosis. No mitral regurgitation. Mild tricuspid regurgitation present. There is no evidence of pulmonary hypertension. The right v entricular systolic pressure, as measured by Doppler, is 31.50mmHg. There is no pulmonic regurgitation present. The aortic root size is normal. IVC Not well visulized. There is no pericardial effusion. CONCLUSIONS -------- 1. The left ventricular size is normal. 2. There is moderate concentric left ventricular hypertrophy. 3. Overall left ventricular systolic function is normal with, an EF between 55 - 60 %. 4. The right ventricle is moderately enlarged. 5. LA is midly dilated 29-33ml/m2. 6. Mild tricuspid regurgitation present. OBSTETRICIAN: Marta Milton RDCS
[2019-10-15 17:07] LABS: Glucose,Whole Blood 179 mg/dL (75-99)
--- NOTE | 2019-10-15 17:11 | P.PN ---
Progress Note - Text Progress Note Date: 10/15/19 Chief Complaint: Tired History of presenting complaint: This is a [address] Kristy Ortega. Patient was just at [facility] from October 08. Admitted there with a creatinine of 3.6. Prior to discharge a day ago creatinine was down to 3.2. Seen by Dr. Bocanegra. Renal ultrasound did not show any major abnormality. Corticomedullary differentiation was maintained. Patient came home and felt tired lethargic. Rundown. Appetite has been okay. Crawford cold. She decided to come back in again. Patient has known diabetes. Crawford to have diabetic nephropathy. Chronic stable medical conditions include diabetes, GERD, hypertension, hyperlipidemia, obstructive sleep apnea. Patient last labs here on September 04 were 2.93. Also found to be bradycardic. Patient does use a walker. Admitted with metabolic encephalopathy. Ambien and Xanax was discontinued. Patient also found to be hypothermic. Suma hugger given. Given IV fluids. Today-more awake today.. Answers questions better. Suma hugger in place. The 25% of breakfast and 75% of lunch. Laying in bed. Tired. Review of systems: Was done for constitutional, cardiovascular, GI, pulmonary. relevant finding as above Active Medications Acetaminophen (Tylenol Tab) 650 mg PO Q6HR PRN PRN Reason: Mild Pain or Fever > 100.5 Al Hydroxide/Mg Hydroxide (Maalox) 15 ml PO Q6HR PRN PRN Reason: Indigestion Amlodipine Besylate (Norvasc) 10 mg PO DAILY [facility] Last Admin: 10/15/19 08:30 Dose: 10 mg Documented by: Aspirin (Aspirin) 81 mg PO DAILY [facility] Last Admin: 10/15/19 08:30 Dose: 81 mg Documented by: Calcium Acetate (Phoslo) 667 mg PO AC-TID [facility] Last Admin: 10/15/19 13:30 Dose: 667 mg Documented by: Calcium Carbonate/Glycine (Tums) 1,000 mg PO Q4HR PRN PRN Reason: Dyspepsia Cefdinir (Omnicef) 300 mg PO BID [facility] Last Admin: 10/15/19 08:30 Dose: 300 mg Documented by: Hydralazine HCl (Apresoline) 100 mg PO TID [facility] Last Admin: 10/15/19 08:29 Dose: 100 mg Documented by: Hydralazine HCl (Apresoline) 10 mg IVP Q4HR PRN PRN Reason: Systolic BP greater than 160 Last Admin: 10/14/19 13:36 Dose: 10 mg Documented by: Insulin Aspart (Novolog) 0 unit SQ [facility]; Protocol Last Admin: 10/15/19 13:30 Dose: 2 unit Documented by: Lactulose (Cephulac) 20 gm PO DAILY PRN PRN Reason: Constipation Losartan Potassium (Cozaar) 50 mg PO DAILY [facility] Last Admin: 10/15/19 08:30 Dose: 50 mg Documented by: Magnesium Hydroxide (Milk Of Magnesia) 2,400 mg PO DAILY PRN PRN Reason: Constipation Magnesium Oxide (Mag-Ox) 400 mg PO TID [facility] Last Admin: 10/15/19 08:30 Dose: 400 mg Documented by: Melatonin (Melatonin) 3 mg PO HS PRN PRN Reason: Insomnia Multivitamins (Theragran) 1 each PO DAILY@1200 [facility] Last Admin: 10/15/19 13:30 Dose: 1 each Documented by: Naloxone HCl (Narcan) 0.2 mg IV Q2M PRN PRN Reason: Opioid Reversal Ondansetron HCl (Zofran) 4 mg IVP Q8HR PRN PRN Reason: Nausea And Vomiting Pantoprazole Sodium (Protonix) 40 mg PO AC-BRKFST [facility] Last Admin: 10/15/19 08:30 Dose: 40 mg Documented by: Pioglitazone HCl (Actos) 30 mg PO [facility] Last Admin: 10/14/19 22:07 Dose: 30 mg Documented by: Sodium Bicarbonate (Sodium Bicarbonate Tab) 650 mg PO BID [facility] Last Admin: 10/15/19 08:30 Dose: 650 mg Documented by: Physical examination: VITAL SIGNS: 97.7, 49, 16, 135/73, 91% room air GENERAL: BMI 33.5, laying in bed, a bit more awake today EYES: Pupils equal. Conjunctiva normal. HEENT: External appearance of nose and ears normal, oral cavity grossly normal. NECK: JVD not raised; masses not palpable. HEART: First and second heart sounds are normal; no edema. LUNGS: Respiratory rate normal; decreased breath sounds. ABDOMEN: Soft, nontender, liver spleen not palpable, no masses palpable. PSYCH: Answering questions better today MUSCULAR skeletal: Evidence of OA in the hands INVESTIGATIONS, reviewed in the clinical context: Potassium 5.4 bun 48 creatinine 2.87, Accu-Cheks 131, 184 Previous testing White count 3.6 hemoglobin 9.1 platelets 146 potassium 4.9 bun 50 creatinine 3.11 UA showing moderate leukoesterase, WBC, tense, 7 epithelial cells EKG tracing personally reviewed by me-sinus bradycardia Chest x-ray film personally reviewed by me-borderline cardiomegaly Assessment: -Significant bradycardia patient is on Toprol-XL 200 mg. Cutback on the dose. -Acute UTI from cystitis -Obesity BMI 32.5 -Depression otherwise specified -Metabolic encephalopathy could be from medications. Patient of the hefty dose of Ambien. Cutback on the same.-Slow to respond -GERD -Essential hypertension -Diabetes mellitus type 2 -Acute kidney injury likely prerenal from decreased oral intake. Creatinine started to come down with IV fluids -Diabetic nephropathy, CK D stage IV -Metabolic acidosis from kidney failure -Hypothermic-metabolic on Suma hugger Plan: Patient on Omnicef, other medications continued. Follow electrolytes, Accu- Cheks are being followed. On sodium bicarbonate. IV fluids. Repeat labs in the morning. Labs the patient sit up in a chair. PTOT. .
[2019-10-15] MEDS ORDERED: SODIUM CHLORIDE 0.9% 1,000 ML IV SCH (17:15)
[2019-10-15] MEDS: PIOGLITAZONE 30 MG TAB PO SCH (20:19)
[2019-10-15 20:21] LABS: Glucose,Whole Blood 184 mg/dL (75-99)
[2019-10-15] MEDS: MELATONIN 3 MG TABLET PO PRN (20:59)
[2019-10-16 03:41] LABS: Glucose,Whole Blood 145 mg/dL (75-99)
[2019-10-16] MEDS: hydrALAZINE HCL 20 MG/ML 1 ML VIAL IVP PRN ×2 (03:44→20:37)
[2019-10-16 07:17] LABS: Glucose,Whole Blood 163 mg/dL (75-99)
[2019-10-16 07:56] LABS: Calcium 9.1 mg/dL (8.4-10.2); Magnesium 1.7 mg/dL (1.6-2.3); Potassium 5.4 mmol/L (3.5-5.1)
[2019-10-16] MEDS: PANTOPRAZOLE 40 MG TABLET PO SCH (08:02)
[2019-10-16] MEDS: CALCIUM ACETATE 667 MG TAB PO SCH ×3 (08:02→17:09)
[2019-10-16] MEDS: INSULIN ASPART (NovoLOG) 100 UNIT/ML VIAL SQ SCH ×4 (08:02→21:35)
[2019-10-16] MEDS: SODIUM BICARBONATE TAB 650 MG TAB PO SCH ×2 (08:03→21:35)
[2019-10-16] MEDS: hydrALAZINE HCL 50 MG TAB PO SCH ×3 (08:03→21:36)
[2019-10-16] MEDS: CEFDINIR 300 MG CAP PO SCH (08:03)
[2019-10-16] MEDS: ASPIRIN 81 MG PO SCH (08:03)
[2019-10-16] MEDS: LOSARTAN 50 MG TAB PO SCH (08:03)
[2019-10-16] MEDS: MAGNESIUM OXIDE 400 MG TAB PO SCH ×3 (08:03→21:35)
[2019-10-16] MEDS: amLODIPine 10 MG TAB PO SCH (08:03)
[2019-10-16] MEDS: MULTIVITAMINS, THERA 1 EACH TAB PO SCH (08:04)
[2019-10-16] MEDS ORDERED: FUROSEMIDE 10 MG/ML 4 ML VIAL IV STA (09:43)
[2019-10-16] MEDS ORDERED: carvediloL 3.125 MG TAB PO SCH (09:45)
[2019-10-16] MEDS ORDERED: SODIUM FERRIC GLUCONAT-SUCROSE 125 MG in SODIUM CHLORIDE 0.9% 100 ML IVPB ONE (09:45)
--- NOTE | 2019-10-16 09:45 | P.PN ---
Subjective Patient is seen in follow-up for acute kidney injury and chronic kidney disease. Renal function stable. Oral intake good. No vomiting or diarrhea. Good urine output. blood pressure on the higher side. Vital signs are stable. General: The patient appeared well nourished and normally developed. HEENT: Head exam is unremarkable. Neck is without jugular venous distension. LUNGS: Lungs are clear to auscultation and percussion. Breath sounds decreased. HEART: Rate and Rhythm are regular. ABDOMEN: Soft, nontender. EXTREMITITES: Trace edema. Objective - Vital Signs Vital signs: Vital Signs Temp 98 F 10/16/19 06:54 Pulse 68 10/16/19 06:54 Resp 22 10/16/19 06:54 BP 179/75 10/16/19 06:54 Pulse Ox 94 L 10/16/19 06:54 Intake & Output 10/15/19 10/16/19 10/16/19 18:59 06:59 18:59 Intake Total 200 500 120 Output Total 300 Balance 200 500 -180 Intake: Intake, IV Titration 200 500 Amount Sodium Chloride 0.9% 1, 500 000 ml @ 50 mls/hr IV . Q20H [facility] Rx#:[id number] Sodium Chloride 0.9% 1, 100 000 ml @ 75 mls/hr IV . [id number] [facility] Rx#:[id number] Sodium Ferric Gluconat- 100 Sucrose 125 mg In Sodium Chloride 0.9% 100 ml @ 100 mls/hr IVPB ONCE ONE Rx#:[id number] Oral 120 Output: Urine 300 Other: Voiding Method Bedside Commode Bedside Commode # Voids 1 1 1 # Bowel Movements 1 1 - Labs CBC & Chem 7: 10/13/19 16:38 10/16/19 06:50 Labs: Abnormal Lab Results - Last 24 Hours (Table) 10/15/19 10/15/19 10/15/19 Range/Units 11:11 12:35 17:06 Potassium 5.3 H (3.5-5.1) mmol/L Chloride (98-107) mmol/L Carbon Dioxide (22-30) mmol/L BUN (7-17) mg/dL Creatinine (0.52-1.04) mg/dL Glucose (74-99) mg/dL POC Glucose (mg/dL) 184 H 179 H (75-99) mg/dL 10/15/19 10/16/19 10/16/19 Range/Units 20:11 03:39 06:50 Potassium 5.4 H (3.5-5.1) mmol/L Chloride 115 H (98-107) mmol/L Carbon Dioxide 21 L (22-30) mmol/L BUN 44 H (7-17) mg/dL Creatinine 2.94 H (0.52-1.04) mg/dL Glucose 149 H (74-99) mg/dL POC Glucose (mg/dL) 184 H 145 H (75-99) mg/dL 10/16/19 Range/Units 07:16 Potassium (3.5-5.1) mmol/L Chloride (98-107) mmol/L Carbon Dioxide (22-30) mmol/L BUN (7-17) mg/dL Creatinine (0.52-1.04) mg/dL Glucose (74-99) mg/dL POC Glucose (mg/dL) 163 H (75-99) mg/dL Assessment and Plan Plan: Assessment: 1. Acute kidney injury secondary to ATN secondary to infection. Creatinine 3.11 on admission and is 2.94 today. No evidence of hydronephrosis noted on ultrasound done in August 2019. No evidence of urinary retention. 2. Chronic kidney disease. Need to establish baseline. Creatinine was 0.9 in September 2015 but recently has been near 3. Etiology is diabetic kidney disease. Does have proteinuria. Further workup outpatient. 3. UTI maintained on antibiotics. 4. Encephalopathy likely related to UTI. No acute changes noted on brain CT. 5. Chronic kidney disease mineral bone disease maintained on PhosLo. 6. Hypertension with chronic kidney disease. 7. Metabolic acidosis secondary to chronic kidney disease maintained on oral b icarbonate. 8. Anemia of chronic kidney disease. Iron deficiency noted. 9. Hyperkalemia secondary to acute kidney injury and losartan. Plan: Maintain current antihypertensives. Lasix 40 mg IV once today. Add Coreg. IV Ferrlecit once today - this will be the second dose. Follow-up cultures. Continue to monitor renal function and urine output. Monitor potassium level. If rises further, will discontinue losartan. Phosphorus normal.
[2019-10-16 12:19] LABS: Glucose,Whole Blood 160 mg/dL (75-99)
--- NOTE | 2019-10-16 12:48 | XR ---
EXAMINATION TYPE: XR chest 2V DATE OF EXAM: 10/16/2019 COMPARISON: 10/13/2019 TECHNIQUE: PA and lateral views submitted. HISTORY: Difficulty breathing FINDINGS: Coarsened interstitium with bilateral consolidation. Tiny effusions are suspected and there is hypert rophic and degenerative changes spine. Could not exclude a pulmonary nodule at the right lung base. R ecommend CT chest. Mild prominence of the right hilum. Surgical clips in the soft tissues of the neck . IMPRESSION: 1. Bibasilar infiltrate and small effusion correlate for interstitial pneumonitis or venous congestio n. Underlying pneumonia in the differential diagnosis. Only masses or nodules not excluded with possi ble right hilar adenopathy. Recommend CT chest.
--- NOTE | 2019-10-16 13:38 | P.PN ---
Subjective This is a pleasant 64-year-old female past medical history significant for coronary artery disease, diabetes mellitus, hypertension, dyslipidemia, o bstructive sleep apnea and obesity. We are following secondary to bradycardia. Her Toprol has been discontinued. Laboratory data reviewed, sodium 141, potassium 5.4, creatinine 2.94 and magnesium 1.7. Blood pressure 196/69 heart rate 69 afebrile maintaining oxygen saturation on nasal cannula. Currently maintained on amlodipine 10 mg daily, aspirin 81 mg daily, hydralazine 100 mg 3 times a day, losartan 50 mg daily and was started on Coreg 3.125 mg twice a day today per nephrology. GENERAL: Well-appearing, well-nourished and in no acute distress. NECK: Supple without JVD or thyromegaly. LUNGS: Breath sounds clear to auscultation bilaterally. Respiration equal and unlabored. No wheezes, rales or rhonchi. HEART: Regular rate and rhythm without murmurs, rubs or gallops. S1 and S2 heard. EXTREMITIES: Normal range of motion, no edema. No clubbing or cyanosis. Peripheral pulses intact. ASSESSMENT Altered mental status Sinus bradycardia Acute renal failure Urinary tract infection Hyperkalemia Diabetes mellitus Hypertension Dyslipidemia Obstructive sleep apnea Obesity, BMI 33 PLAN Discontinue Coreg as she came in with profound significant bradycardia. She was given a dose today at noon time. Recommend clonidine for blood pressure control in addition to current regimen. We will continue on cardiac monitor technician. Nurse Practitioner note has been reviewed, I agree with a documented findings and plan of care. Patient was seen and examined. Objective - Vital Signs Vital signs: Vital Signs Temp 97.7 F 10/16/19 12:19 Pulse 69 10/16/19 12:19 Resp 16 10/16/19 12:19 BP 196/69 10/16/19 12:19 Pulse Ox 94 L 10/16/19 12:19 Intake & Output 10/15/19 10/16/19 10/16/19 18:59 06:59 18:59 Intake Total 200 500 120 Output Total 300 Balance 200 500 -180 Intake: Intake, IV Titration 200 500 Amount Sodium Chloride 0.9% 1, 500 000 ml @ 50 mls/hr IV . Q20H [facility] Rx#:[id number] Sodium Chloride 0.9% 1, 100 000 ml @ 75 mls/hr IV . [id number] [facility] Rx#:[id number] Sodium Ferric Gluconat- 100 Sucrose 125 mg In Sodium Chloride 0.9% 100 ml @ 100 mls/hr IVPB ONCE ONE Rx#:[id number] Oral 120 Output: Urine 300 Other: Voiding Method Bedside Commode Bedside Commode # Voids 1 1 1 # Bowel Movements 1 1 - Labs CBC & Chem 7: 10/13/19 16:38 10/16/19 06:50 Labs: Abnormal Lab Results - Last 24 Hours (Table) 10/15/19 10/15/19 10/16/19 Range/Units 17:06 20:11 03:39 Potassium (3.5-5.1) mmol/L Chloride (98-107) mmol/L Carbon Dioxide (22-30) mmol/L BUN (7-17) mg/dL Creatinine (0.52-1.04) mg/dL Glucose (74-99) mg/dL POC Glucose (mg/dL) 179 H 184 H 145 H (75-99) mg/dL 10/16/19 10/16/19 10/16/19 Range/Units 06:50 07:16 12:18 Potassium 5.4 H (3.5-5.1) mmol/L Chloride 115 H (98-107) mmol/L Carbon Dioxide 21 L (22-30) mmol/L BUN 44 H (7-17) mg/dL Creatinine 2.94 H (0.52-1.04) mg/dL Glucose 149 H (74-99) mg/dL POC Glucose (mg/dL) 163 H 160 H (75-99) mg/dL
--- NOTE | 2019-10-16 13:45 | NM ---
EXAMINATION TYPE: NM pul vent and perfuse DATE OF EXAM: 10/16/2019 COMPARISON: Chest x-ray 10/16/2019 HISTORY: Shortness of breath TECHNIQUE: Utilizing inhalation of 62.3 mCi Tc 99m DTPA aerosol and intravenous injection of 4.65 mC i of Tc 99m MAA, ventilation and perfusion images are acquired post injection in multiple projections . FINDINGS: Heterogeneous uptake is seen on ventilation images with clumping of radiotracer centrally which could be associated with COPD. This limits the exam. There are matched ventilation/perfusion defects. IMPRESSION: Intermediate probability for pulmonary embolism.
[2019-10-16] MEDS ORDERED: cloNIDine 0.2 MG/24HR PATCH TRANSDERM SCH (14:00)
[2019-10-16] MEDS ORDERED: ENOXAPARIN 40 MG/0.4 ML SYRINGE SQ SCH (14:45)
[2019-10-16 17:12] LABS: Glucose,Whole Blood 215 mg/dL (75-99)
[2019-10-16 20:25] LABS: Glucose,Whole Blood 197 mg/dL (75-99)
[2019-10-16] MEDS: ACETAMINOPHEN TAB 325 MG TAB PO PRN (20:36)
[2019-10-16] MEDS: MELATONIN 3 MG TABLET PO PRN (21:35)
[2019-10-16] MEDS: PIOGLITAZONE 30 MG TAB PO SCH (21:36)
--- NOTE | 2019-10-17 01:58 | P.PN ---
Subjective Progress Note Date: 10/16/19 Principal diagnosis: Acute UTI from cystitis Bradycardia This is a [address] Kristy Ortega. Patient was just at [facility] from October 08. Admitted there with a creatinine of 3.6. Prior to discharge a day ago creatinine was down to 3.2. Seen by Dr. Bocanegra. Renal ultrasound did not show any major abnormality. Corticomedullary differentiation was maintained. Patient came home and felt tired lethargic. Rundown. Appetite has been okay. [place] cold. She decided to come back in again. Patient has known diabetes. [place] to have diabetic nephropathy. Chronic stable medical conditions include diabetes, GERD, hypertension, hyperlipidemia, obstructive sleep apnea. Patient last labs here on September 04 were 2.93. Also found to be bradycardic. Patient does use a walker. Admitted with metabolic encephalopathy. Ambien and Xanax was discontinued. Patient also found to be hypothermic. Suma hugger given. Given IV fluids. 10/14-more awake today.. Answers questions better. Suma hugger in place. The 25% of breakfast and 75% of lunch. Laying in bed. Tired. 10/16/2019 Patient is currently sitting in the chair. Awake alert and oriented without seems to be confused. Blood pressure still elevated patient was started on Catapres patch and metoprolol has been discontinued due to bradycardia. Heart rate went up to 66 now. Laboratory data showed BUN 44 and creatinine 2.94 Potassium 5.4 bicarb is 21 magnesium 1.7 Patient had chest x-ray this morning showed bibasilar infiltrate and small effusion correlate for interstitial pneumonitis versus congestion. Underlying pneumonia in the differential diagnosis. Patient was given a dose of IV Lasix. VQ scan showed intermediate probability for pulmonary embolism. CT chest could not be done due to elevated creatinine level. Patient is currently requiring oxygen at 4 L via nasal cannula. Patient is not on home oxygen. No complaints of chest pain. No nausea vomiting or abdominal pain or diarrhea. No headache or dizziness. Review of systems: Was done for constitutional, cardiovascular, GI, pulmonary. relevant finding as above Active Medications Acetaminophen (Tylenol Tab) 650 mg PO Q6HR PRN PRN Reason: Mild Pain or Fever > 100.5 Last Admin: 10/16/19 20:36 Dose: 650 mg Documented by: Al Hydroxide/Mg Hydroxide (Maalox) 15 ml PO Q6HR PRN PRN Reason: Indigestion Amlodipine Besylate (Norvasc) 10 mg PO DAILY ON LICENSE OF [facility] Last Admin: 10/16/19 08:03 Dose: 10 mg Documented by: Aspirin (Aspirin) 81 mg PO DAILY ON LICENSE OF [facility] Last Admin: 10/16/19 08:03 Dose: 81 mg Documented by: Azithromycin (Zithromax) 500 mg PO DAILY ON LICENSE OF [facility] Calcium Acetate (Phoslo) 667 mg PO AC-TID ON LICENSE OF [facility] Last Admin: 10/16/19 17:09 Dose: 667 mg Documented by: Calcium Carbonate/Glycine (Tums) 1,000 mg PO Q4HR PRN PRN Reason: Dyspepsia Last Admin: 10/16/19 04:01 Dose: 1,000 mg Documented by: Clonidine HCl (Catapres-Tts 0.2mg Patch) 1 patch TRANSDERM Q7D ON LICENSE OF [facility] Last Admin: 10/16/19 14:59 Dose: 1 patch Documented by: Enoxaparin Sodium (Lovenox) 80 mg SQ DAILY ON LICENSE OF [facility] Hydralazine HCl (Apresoline) 100 mg PO TID ON LICENSE OF [facility] Last Admin: 10/16/19 21:36 Dose: 100 mg Documented by: Hydralazine HCl (Apresoline) 10 mg IVP Q4HR PRN PRN Reason: Systolic BP greater than 160 Last Admin: 10/16/19 20:37 Dose: 10 mg Documented by: Ceftriaxone Sodium 1 gm/ (Sodium Chloride) 50 mls @ 100 mls/hr IVPB Q24HR ON LICENSE OF [facility] Last Admin: 10/16/19 14:59 Dose: 100 mls/hr Documented by: Insulin Aspart (Novolog) 0 unit SQ [facility]; Protocol Last Admin: 10/16/19 21:35 Dose: 2 unit Documented by: Lactulose (Cephulac) 20 gm PO DAILY PRN PRN Reason: Constipation Losartan Potassium (Cozaar) 50 mg PO DAILY ON LICENSE OF [facility] Last Admin: 10/16/19 08:03 Dose: 50 mg Documented by: Magnesium Hydroxide (Milk Of Magnesia) 2,400 mg PO DAILY PRN PRN Reason: Constipation Magnesium Oxide (Mag-Ox) 400 mg PO TID ON LICENSE OF [facility] Last Admin: 10/16/19 21:35 Dose: 400 mg Documented by: Melatonin (Melatonin) 3 mg PO HS PRN PRN Reason: Insomnia Last Admin: 10/16/19 21:35 Dose: 3 mg Documented by: Multivitamins (Theragran) 1 each PO DAILY@1200 ON LICENSE OF [facility] Last Admin: 10/16/19 08:04 Dose: 1 each Documented by: Naloxone HCl (Narcan) 0.2 mg IV Q2M PRN PRN Reason: Opioid Reversal Ondansetron HCl (Zofran) 4 mg IVP Q8HR PRN PRN Reason: Nausea And Vomiting Pantoprazole Sodium (Protonix) 40 mg PO AC-BRKFST ON LICENSE OF [facility] Last Admin: 10/16/19 08:02 Dose: 40 mg Documented by: Pioglitazone HCl (Actos) 30 mg PO HS ON LICENSE OF [facility] Last Admin: 10/16/19 21:36 Dose: 30 mg Documented by: Sodium Bicarbonate (Sodium Bicarbonate Tab) 650 mg PO BID ON LICENSE OF [facility] Last Admin: 10/16/19 21:35 Dose: 650 mg Documented by: Objective - Vital Signs Vital signs: Vital Signs Temp 98.2 F 10/16/19 19:55 Pulse 97 10/16/19 19:55 Resp 22 10/16/19 19:55 BP 211/110 10/16/19 19:55 Pulse Ox 92 L 10/16/19 19:55 Intake & Output 10/16/19 10/16/19 10/17/19 06:59 18:59 06:59 Intake Total 500 750 480 Output Total 600 Balance 500 150 480 Intake: Intake, IV Titration 500 Amount Sodium Chloride 0.9% 1, 500 000 ml @ 50 mls/hr IV . Q20H ON LICENSE OF [facility] Rx#:[id number] Oral 750 480 Output: Urine 600 Other: Voiding Method Bedside Commode Bedside Commode Bedside Commode # Voids 1 3 2 # Bowel Movements 1 - Exam Physical examination: VITAL SIGNS: 97.7, 49, 16, 135/73, 91% room air GENERAL: BMI 33.5, laying in bed, a bit more awake today EYES: Pupils equal. Conjunctiva normal. HEENT: External appearance of nose and ears normal, oral cavity grossly normal. NECK: JVD not raised; masses not palpable. HEART: First and second heart sounds are normal; no edema. LUNGS: Respiratory rate normal; decreased breath sounds. ABDOMEN: Soft, nontender, liver spleen not palpable, no masses palpable. PSYCH: Answering questions better today MUSCULAR skeletal: Evidence of OA in the hands - Labs CBC & Chem 7: 10/13/19 16:38 10/16/19 16:00 Labs: Abnormal Lab Results - Last 24 Hours (Table) 10/16/19 10/16/19 10/16/19 Range/Units 03:39 06:50 07:16 Potassium 5.4 H (3.5-5.1) mmol/L Chloride 115 H (98-107) mmol/L Carbon Dioxide 21 L (22-30) mmol/L BUN 44 H (7-17) mg/dL Creatinine 2.94 H (0.52-1.04) mg/dL Glucose 149 H (74-99) mg/dL POC Glucose (mg/dL) 145 H 163 H (75-99) mg/dL 10/16/19 10/16/19 10/16/19 Range/Units 12:18 16:00 17:11 Potassium 5.5 H (3.5-5.1) mmol/L Chloride (98-107) mmol/L Carbon Dioxide (22-30) mmol/L BUN (7-17) mg/dL Creatinine (0.52-1.04) mg/dL Glucose (74-99) mg/dL POC Glucose (mg/dL) 160 H 215 H (75-99) mg/dL 10/16/19 Range/Units 20:19 Potassium (3.5-5.1) mmol/L Chloride (98-107) mmol/L Carbon Dioxide (22-30) mmol/L BUN (7-17) mg/dL Creatinine (0.52-1.04) mg/dL Glucose (74-99) mg/dL POC Glucose (mg/dL) 197 H (75-99) mg/dL Assessment and Plan Assessment: -Significant bradycardia patient is on Toprol-XL 200 mg. on hold now. -Hypertensive urgency. -Acute kidney injury secondary to ATN secondary to infection. . -Acute UTI from cystitis -Intermediate probability for PE and VQ scan. CTA could not be done due to creatinine level. -Obesity BMI 32.5 -Depression otherwise specified -Metabolic encephalopathy could be from medications. Patient of the hefty dose of Ambien. Cutback on the same.-Slow to respond -GERD -Essential hypertension -Diabetes mellitus type 2 -Diabetic nephropathy, CK D stage IV -Metabolic acidosis from kidney failure -Hypothermic-metabolic on [facility] Plan: Patient Will be started on ceftriaxone and azithromycin. Hold Omnicef. Was started on Lovenox 80 mg daily for possible pulmonary embolism. Continue to titrate blood pressure medications. Follow electrolytes, Accu-Cheks are being followed. On sodium bicarbonate. IV fluids. Repeat labs in the morning. Labs the patient sit up in a chair. PTOT. .Cardiology and nephrology is on board. Time with Patient: Greater than 30
[2019-10-17 07:01] LABS: Glucose,Whole Blood 167 mg/dL (75-99)
[2019-10-17 08:10] LABS: Basophils % (A) 0 %; Eosinophils % (A) 1 %; HCT 28.8 % (34.0-46.0); Hypochromasia Slight; Lymphocytes # (A) 0.3 k/uL (1.0-4.8); Lymphocytes % (A) 4 %; MCH 29.1 pg (25.0-35.0); MCHC 31.4 g/dL (31.0-37.0); MCV 92.6 fL (80.0-100.0); Mean Platelet Volume 8.2; Monocytes # (A) 0.5 k/uL (0-1.0); Monocytes % (A) 6 %; Neutrophils # (A) 7.1 k/uL (1.3-7.7); Neutrophils % (A) 87 %; Platelet Count 141 k/uL (150-450); RBC 3.11 m/uL (3.80-5.40); RDW 15.6 % (11.5-15.5); WBC 8.1 k/uL (3.8-10.6)
[2019-10-17 08:29] LABS: Magnesium 1.6 mg/dL (1.6-2.3); Potassium 5.5 mmol/L (3.5-5.1)
[2019-10-17] MEDS: CALCIUM ACETATE 667 MG TAB PO SCH ×3 (09:33→17:27)
[2019-10-17] MEDS: amLODIPine 10 MG TAB PO SCH (09:34)
[2019-10-17] MEDS: ENOXAPARIN 80 MG/0.8 ML SYRINGE SQ SCH (09:34)
[2019-10-17] MEDS: ASPIRIN 81 MG PO SCH (09:34)
[2019-10-17] MEDS: INSULIN ASPART (NovoLOG) 100 UNIT/ML VIAL SQ SCH ×4 (09:34→20:46)
[2019-10-17] MEDS: PANTOPRAZOLE 40 MG TABLET PO SCH (09:34)
[2019-10-17] MEDS: AZITHROMYCIN 500 MG TAB PO SCH (09:34)
[2019-10-17] MEDS: hydrALAZINE HCL 50 MG TAB PO SCH ×3 (09:35→22:19)
[2019-10-17] MEDS: LOSARTAN 50 MG TAB PO SCH (09:35)
[2019-10-17] MEDS: MAGNESIUM OXIDE 400 MG TAB PO SCH ×3 (09:35→22:19)
[2019-10-17] MEDS: MULTIVITAMINS, THERA 1 EACH TAB PO SCH (09:35)
[2019-10-17] MEDS: SODIUM BICARBONATE TAB 650 MG TAB PO SCH ×2 (09:35→20:45)
--- NOTE | 2019-10-17 10:31 | P.PN ---
Subjective Patient is seen in follow-up for acute kidney injury and chronic kidney disease. Renal function a little worse today due to diuretics. Oral intake good. No vomiting or diarrhea. Good urine output. Blood pressure on the higher side. Remains edematous. States she was short of breath last night. Vital signs are stable. General: The patient appeared well nourished and normally developed. HEENT: Head exam is unremarkable. Neck is without jugular venous distension. LUNGS: Breath sounds decreased. HEART: Rate and Rhythm are regular. ABDOMEN: Soft, nontender. EXTREMITITES: 2+ edema. Objective - Vital Signs Vital signs: Vital Signs Temp 98.5 F 10/17/19 05:00 Pulse 91 10/17/19 05:00 Resp 16 10/17/19 05:00 BP 171/73 10/17/19 05:00 Pulse Ox 91 L 10/17/19 05:00 Intake & Output 10/16/19 10/17/19 10/17/19 18:59 06:59 18:59 Intake Total 750 720 Output Total 600 Balance 150 720 Intake: Intake, IV Titration 240 Amount Sodium Ferric Gluconat- 240 Sucrose 125 mg In Sodium Chloride 0.9% 100 ml @ 100 mls/hr IVPB ONCE ONE Rx#:[id number] Oral 750 480 Output: Urine 600 Other: Voiding Method Bedside Commode Bedside Commode # Voids 3 2 # Bowel Movements 1 1 - Labs CBC & Chem 7: 10/17/19 07:13 10/17/19 07:13 Labs: Abnormal Lab Results - Last 24 Hours (Table) 10/16/19 10/16/19 10/16/19 Range/Units 12:18 16:00 17:11 RBC (3.80-5.40) m/uL Hgb (11.4-16.0) gm/dL Hct (34.0-46.0) % RDW (11.5-15.5) % Plt Count (150-450) k/uL Lymphocytes # (1.0-4.8) k/uL Potassium 5.5 H (3.5-5.1) mmol/L Chloride (98-107) mmol/L Carbon Dioxide (22-30) mmol/L BUN (7-17) mg/dL Creatinine (0.52-1.04) mg/dL Glucose (74-99) mg/dL POC Glucose (mg/dL) 160 H 215 H (75-99) mg/dL 10/16/19 10/17/19 10/17/19 Range/Units 20:19 07:00 07:13 RBC (3.80-5.40) m/uL Hgb (11.4-16.0) gm/dL Hct (34.0-46.0) % RDW (11.5-15.5) % Plt Count (150-450) k/uL Lymphocytes # (1.0-4.8) k/uL Potassium 5.5 H (3.5-5.1) mmol/L Chloride 112 H (98-107) mmol/L Carbon Dioxide 20 L (22-30) mmol/L BUN 48 H (7-17) mg/dL Creatinine 3.14 H (0.52-1.04) mg/dL Glucose 157 H (74-99) mg/dL POC Glucose (mg/dL) 197 H 167 H (75-99) mg/dL 10/17/19 Range/Units 07:13 RBC 3.11 L (3.80-5.40) m/uL Hgb 9.0 L (11.4-16.0) gm/dL Hct 28.8 L (34.0-46.0) % RDW 15.6 H (11.5-15.5) % Plt Count 141 L (150-450) k/uL Lymphocytes # 0.3 L (1.0-4.8) k/uL Potassium (3.5-5.1) mmol/L Chloride (98-107) mmol/L Carbon Dioxide (22-30) mmol/L BUN (7-17) mg/dL Creatinine (0.52-1.04) mg/dL Glucose (74-99) mg/dL POC Glucose (mg/dL) (75-99) mg/dL Assessment and Plan Plan: Assessment: 1. Acute kidney injury secondary to ATN secondary to infection. Creatinine 3.14 today. No evidence of hydronephrosis noted on ultrasound done in August 25. No evidence of urinary retention. 2. Chronic kidney disease. Need to establish baseline. Creatinine was 0.9 in September 2015 but recently has been near 3. Etiology is diabetic kidney disease. Does have proteinuria. Further workup outpatient. 3. UTI maintained on antibiotics. 4. Encephalopathy likely related to UTI. No acute changes noted on brain CT. 5. Chronic kidney disease mineral bone disease maintained on PhosLo. 6. Hypertension with chronic kidney disease. 7. Metabolic acidosis secondary to chronic kidney disease maintained on oral bicarbonate. 8. Anemia of chronic kidney disease. Iron deficiency noted. Status post IV iron. 9. Hyperkalemia secondary to acute kidney injury and losartan. Plan: Maintain current antihypertensives. Add Lasix 40 mg IV twice daily. Add Aranesp. Follow-up cultures. Continue to monitor renal function and urine output. Monitor potassium level. If rises further, will discontinue losartan. Phosphorus normal.
[2019-10-17] MEDS: FUROSEMIDE 10 MG/ML 4 ML VIAL IV SCH ×2 (11:21→20:46)
[2019-10-17] MEDS: DARBEPOETIN ALFA 40 MCG/0.4 ML SYRINGE SQ SCH (11:21)
[2019-10-17 12:02] LABS: Glucose,Whole Blood 154 mg/dL (75-99)
--- NOTE | 2019-10-17 13:20 | P.CNPUL ---
History of Present Illness Consult date: 10/17/19 Requesting physician: Radha Parikh Reason for consult: hypoxemia, abnormal CXR/CT Chief complaint: Acute hypoxic respiratory failure, intermediate probability VQ scan History of present illness: 64-year-old white female patient of Dr. Kristy Ortega who came in on 10/13/2019 to the emergency department for evaluation of altered mental status. Apparently patient had a recent hospitalization at the [facility] where she was being treated for acute kidney injury, and a urinary tract infection and was being seen by nephrology. Past medical history includes coronary artery disease, diabetes mellitus type 2, hypertension, dyslipidemia, obesity, sleep apnea, previous history of CVA, anxiety, patient is a former smoker, unknown whether or not she has any chronic lung disease however we're told she is not oxygen dependent at baseline. On initial evaluation patient was found to be bradycardic in the 40s, however did not complain of any chest pain or shortness of breath. Her renal function was abnormal, nephrology has been following the patient. Initial blood work showed a white blood cell count of 3.6, hemoglobin of 9.1, sodium of 136, potassium is 4.9, chloride is 109, CO2 is 20, BUN is 50, creatinine is 3.1, troponin was negative at 0.012, proBNP was elevated 2910, LFTs were within normal limits, TSH was within normal limits, urinalysis showed evidence of infection with moderate amount of leuks, increased white blood cell count at 22, occasional bacteria and mucus. Urine culture was negative. Chest x-ray shows minimal pleural reaction in the left lung base, and upon a consolidation or heart failure. Echocardiogram showed preserved LV function with an EF of 55-60%, no evidence of aortic stenosis or regurgitation, mild TR, no evidence of pulmonary hypertension with right-sided pressures of 31.[address] showed cerebral atrophy and chronic small vessel ischemia, no acute intracranial abnormality. Through the course of her stay patient devel oped significant lower extremity edema, and yesterday developed worsening shortness of breath and a pulse ox in the 80s requiring supplemental oxygen which is currently at 4 L with a pulse ox of 91-93%. She is lethargic, but she is answering questions appropriately, she knew she was in the hospital, she knew the year and the president. She is currently afebrile, a bit hypertensive with systolic in the 170s to 180s, and diastolic in the 70s, she denies any shortness of breath, denies any chest pain or hemoptysis. Yesterday's chest x-ray shows bibasilar infiltrates and small pleural effusion, patient was started on a combination of antibiotics of azithromycin and Rocephin, and IV diuretics. She is incontinent, it's difficult to estimate her net fluid balance, she remains quite edematous on today's exam. D-dimer came back mildly elevated at 1.11. Because of renal function still being abnormal with creatinine of 3.14 VQ scan was obtained showing intermediate probability for pulmonary embolism, and we are asked to see the patient in consultation in regards to possibility of underlying pulmonary embolism Review of Systems All systems: negative Constitutional: Reports lethargy, Reports weakness, Denies chills, Denies fever Eyes: denies blurred vision, denies pain Ears, nose, mouth and throat: Denies headache, Denies sore throat Cardiovascular: Denies chest pain, Denies shortness of breath Respiratory: Reports dyspnea, Denies cough Gastrointestinal: Denies abdominal pain, Denies diarrhea, Denies nausea, Denies vomiting Genitourinary: Denies dysuria, Denies hematuria Musculoskeletal: Denies myalgias Integumentary: Denies pruritus, Denies rash Neurological: Reports change in mentation, Reports confusion, Denies numbness, Denies weakness Psychiatric: Denies anxiety, Denies depression Endocrine: Denies fatigue, Denies weight change Past Medical History Past Medical History: Coronary Artery Disease (CAD), CVA/TIA, Diabetes Mellitus, GERD/Reflux, Hyperlipidemia, Hypertension, Sleep Apnea/CPAP/BIPAP Additional Past Medical History / Comment(s): cva 2012, arthritis, polyps, high heart rate at times with short bursts of V tach History of Any Multi-Drug Resistant Organisms: None Reported Past Surgical History: Heart Catheterization Additional Past Surgical History / Comment(s): bilateral carotid endarct, Lumpectomy right breast benign, Carpel Tunnel Surgery bilat wrists, pylondial cyst removal, vericose vein removal, bilateral lens implants Past Anesthesia/Blood Transfusion Reactions: Previous Problems w/ Anesthesia Additional Past Anesthesia/Blood Transfusion Reaction / Comment(s): had trouble waking up after surgery Past Psychological History: Anxiety, Depression Smoking Status: Former smoker Past Alcohol Use History: Occasional Past Drug Use History: None Reported - Past Family History Daughter(s) Additional Family Medical History / Comment(s): fast heart rate Medications and Allergies Home Medications Medication Instructions Recorded Confirmed Type ALPRAZolam [Xanax] 0.25 mg PO BID PRN 05/07/14 10/13/19 History Multivitamins, Thera [Multivitamin 1 tab PO DAILY 05/07/14 10/13/19 History (formulary)] Zolpidem [Ambien] 10 mg PO HS PRN 05/07/14 10/13/19 History amLODIPine [Norvasc] 10 mg PO DAILY 05/07/14 10/13/19 History Aspirin EC [Ecotrin Low Dose] 81 mg PO DAILY 09/19/15 10/13/19 History Furosemide [Lasix] 20 mg PO DAILY 09/01/19 10/13/19 History Magnesium Oxide [Day] 500 mg PO TID 09/01/19 10/13/19 History Metoprolol Succinate [Toprol XL] 200 mg PO DAILY 09/01/19 10/13/19 History Pioglitazone [Actos] 30 mg PO HS 09/01/19 10/13/19 History Pantoprazole [Protonix] 40 mg PO AC-BRKFST 30 Days #30 09/05/19 10/13/19 Rx tablet. Sodium Bicarbonate Tab 650 mg PO BID 30 Days #60 tab 09/05/19 10/13/19 Rx hydrALAZINE HCL [Apresoline] 50 mg PO TID 30 Days #90 tab 09/05/19 10/13/19 Rx Calcium Acetate [PhosLo] 667 mg PO AC-TID 09/07/19 10/13/19 History DULoxetine HCL [Cymbalta] 30 mg PO DIRECTED 10/13/19 10/13/19 History DULoxetine HCL [Cymbalta] 60 mg PO DIRECTED 10/13/19 10/13/19 History Losartan Potassium 50 mg PO DAILY 10/13/19 10/13/19 History Allergies Allergy/AdvReac Type Severity Reaction Status Date / Time captopril Allergy Cough Verified 10/13/19 18:58 cephalexin monohydrate Allergy Rash/Hives Verified 10/13/19 18:58 [From Keflex] Penicillins Allergy Rash/Hives Verified 10/13/19 18:58 Physical Exam Vitals: Vital Signs Temp Pulse Resp BP Pulse Ox 10/17/19 12:07 98.4 F 75 20 181/71 93 L 10/17/19 05:00 98.5 F 91 16 171/73 91 L 10/16/19 19:55 98.2 F 97 22 211/110 92 L 10/16/19 16:00 65 16 10/16/19 15:05 66 156/67 Intake and Output 10/16/19 10/17/19 10/17/19 22:59 06:59 14:59 Intake Total 480 240 Output Total 300 Balance 180 240 Intake: Intake, IV Titration 240 Amount Sodium Ferric Gluconat- 240 Sucrose 125 mg In Sodium Chloride 0.9% 100 ml @ 100 mls/hr IVPB ONCE ONE Rx#:[id number] Oral 480 Output: Urine 300 Other: Voiding Method Bedside Commode Bedside Commode # Voids 1 2 # Bowel Movements 1 1 GENERAL EXAM: Lethargic, but easily arousable to verbal stimuli, 64-year-old white female, currently on 4 L of oxygen a pulse ox of 91-93%, she is oriented to place, year and the president, although her responses are somewhat slow but appropriate, comfortable in no apparent distress. HEAD: Normocephalic/atraumatic. EYES: Normal reaction of pupils, equal size. Conjunctiva pink, sclera white. NOSE: Clear with pink turbinates. THROAT: No erythema or exudates. NECK: No masses, no JVD, no thyroid enlargement, no adenopathy. CHEST: No chest wall deformity. Symmetrical expansion. LUNGS: Equal air entry with mild crackles at bilateral bases, but no wheeze, rh onchi or dullness. CVS: Regular rate and rhythm, normal S1 and S2, no gallops, no murmurs, no rubs ABDOMEN: Soft, nontender. No hepatosplenomegaly, normal bowel sounds, no guarding or rigidity. EXTREMITIES: No clubbing, 1+ lower extremity edema, no cyanosis, 2+ pulses and upper and lower extremities. MUSCULOSKELETAL: Muscle strength and tone normal. SPINE: No scoliosis or deformity SKIN: No rashes CENTRAL NERVOUS SYSTEM: Somnolent but arousable and oriented -3. No focal deficits, tone is normal in all 4 extremities. Results - Laboratory Findings CBC and BMP: 10/17/19 07:13 10/17/19 07:13 PT/INR, D-dimer PT 9.6 sec (9.0-12.0) 10/13/19 16:38 INR 0.9 (<1.2) 10/13/19 16:38 D-Dimer 1.11 mg/L FEU (<0.60) H 10/17/19 11:18 Abnormal lab findings: Abnormal Labs 10/13/19 10/13/19 10/13/19 16:38 16:38 17:19 WBC 3.6 L RBC 3.12 L Hgb 9.1 L Hct 28.2 L RDW Plt Count 146 L Lymphocytes # 0.6 L D-Dimer Sodium 136 L Potassium Chloride 109 H Carbon Dioxide 20 L BUN 50 H Creatinine 3.11 H Glucose 116 H POC Glucose (mg/dL) ALT Creatine Kinase 27 L Total Protein 6.1 L Albumin 3.4 L Urine Appearance Cloudy H Urine Protein 3+ H Urine Glucose (UA) Trace H Ur Leukocyte Esterase Moderate H Urine WBC 22 H Ur Squamous Epith Cells 10 H Amorphous Sediment Occasional H Urine Bacteria Occasional H Hyaline Casts 21 H Urine Mucus Rare H 10/13/19 10/14/19 10/14/19 20:46 07:15 11:59 WBC RBC Hgb Hct RDW Plt Count Lymphocytes # D-Dimer Sodium Potassium Chloride Carbon Dioxide BUN Creatinine Glucose POC Glucose (mg/dL) 107 H 137 H 186 H ALT Creatine Kinase Total Protein Albumin Urine Appearance Urine Protein Urine Glucose (UA) Ur Leukocyte Esterase Urine WBC Ur Squamous Epith Cells Amorphous Sediment Urine Bacteria Hyaline Casts Urine Mucus 10/14/19 10/14/19 10/15/19 16:57 21:21 06:42 WBC RBC Hgb Hct RDW Plt Count Lymphocytes # D-Dimer Sodium Potassium 5.4 H Chloride 116 H Carbon Dioxide 19 L BUN 48 H Creatinine 2.87 H Glucose 119 H POC Glucose (mg/dL) 126 H 173 H ALT 44 H Creatine Kinase Total Protein 5.9 L Albumin 3.2 L Urine Appearance Urine Protein Urine Glucose (UA) Ur Leukocyte Esterase Urine WBC Ur Squamous Epith Cells Amorphous Sediment Urine Bacteria Hyaline Casts Urine Mucus 10/15/19 10/15/19 10/15/19 06:54 11:11 12:35 WBC RBC Hgb Hct RDW Plt Count Lymphocytes # D-Dimer Sodium Potassium 5.3 H Chloride Carbon Dioxide BUN Creatinine Glucose POC Glucose (mg/dL) 131 H 184 H ALT Creatine Kinase Total Protein Albumin Urine Appearance Urine Protein Urine Glucose (UA) Ur Leukocyte Esterase Urine WBC Ur Squamous Epith Cells Amorphous Sediment Urine Bacteria Hyaline Casts Urine Mucus 10/15/19 10/15/19 10/16/19 17:06 20:11 03:39 WBC RBC Hgb Hct RDW Plt Count Lymphocytes # D-Dimer Sodium Potassium Chloride Carbon Dioxide BUN Creatinine Glucose POC Glucose (mg/dL) 179 H 184 H 145 H ALT Creatine Kinase Total Protein Albumin Urine Appearance Urine Protein Urine Glucose (UA) Ur Leukocyte Esterase Urine WBC Ur Squamous Epith Cells Amorphous Sediment Urine Bacteria Hyaline Casts Urine Mucus 10/16/19 10/16/19 10/16/19 06:50 07:16 12:18 WBC RBC Hgb Hct RDW Plt Count Lymphocytes # D-Dimer Sodium Potassium 5.4 H Chloride 115 H Carbon Dioxide 21 L BUN 44 H Creatinine 2.94 H Glucose 149 H POC Glucose (mg/dL) 163 H 160 H ALT Creatine Kinase Total Protein Albumin Urine Appearance Urine Protein Urine Glucose (UA) Ur Leukocyte Esterase Urine WBC Ur Squamous Epith Cells Amorphous Sediment Urine Bacteria Hyaline Casts Urine Mucus 10/16/19 10/16/19 10/16/19 16:00 17:11 20:19 WBC RBC Hgb Hct RDW Plt Count Lymphocytes # D-Dimer Sodium Potassium 5.5 H Chloride Carbon Dioxide BUN Creatinine Glucose POC Glucose (mg/dL) 215 H 197 H ALT Creatine Kinase Total Protein Albumin Urine Appearance Urine Protein Urine Glucose (UA) Ur Leukocyte Esterase Urine WBC Ur Squamous Epith Cells Amorphous Sediment Urine Bacteria Hyaline Casts Urine Mucus 10/17/19 10/17/19 10/17/19 07:00 07:13 07:13 WBC RBC 3.11 L Hgb 9.0 L Hct 28.8 L RDW 15.6 H Plt Count 141 L Lymphocytes # 0.3 L D-Dimer Sodium Potassium 5.5 H Chloride 112 H Carbon Dioxide 20 L BUN 48 H Creatinine 3.14 H Glucose 157 H POC Glucose (mg/dL) 167 H ALT Creatine Kinase Total Protein Albumin Urine Appearance Urine Protein Urine Glucose (UA) Ur Leukocyte Esterase Urine WBC Ur Squamous Epith Cells Amorphous Sediment Urine Bacteria Hyaline Casts Urine Mucus 10/17/19 10/17/19 11:18 12:00 WBC RBC Hgb Hct RDW Plt Count Lymphocytes # D-Dimer 1.11 H Sodium Potassium Chloride Carbon Dioxide BUN Creatinine Glucose POC Glucose (mg/dL) 154 H ALT Creatine Kinase Total Protein Albumin Urine Appearance Urine Protein Urine Glucose (UA) Ur Leukocyte Esterase Urine WBC Ur Squamous Epith Cells Amorphous Sediment Urine Bacteria Hyaline Casts Urine Mucus - Diagnostic Findings Chest x-ray: report reviewed Additional studies: EKG, echocardiogram, brain CT, VQ scan reviewed Assessment and Plan Plan: Assessment: #1. Acute hypoxic respiratory failure likely related to fluid overload, acute exacerbation of CHF with preserved left surgical systolic function and EF of 55- 60% and no significant valvular abnormality and no evidence of pulmonary hypertension. #2. Intermediate probability VQ scan for pulmonary embolism, and mildly elevated d-dimer, both nonspecific, doubt possibility of pulmonary embolism, we'll obtain lower extremity Dopplers #3. Recent history of urinary tract infection with sepsis requiring hospitalization at [facility], with metabolic encephalopathy #4. Acute metabolic encephalopathy, likely related to underlying sepsis, acute kidney injury, improved since admission #5. Bradycardia present on admission, TSH within normal limits, improved, cardiology is following #6. Acute on chronic kidney disease related to ATN secondary to infection, no evidence of hydronephrosis noted on renal ultrasound from August 2019 #7. History of chronic kidney disease stage III #8. History of hypertension #9. Diabetes mellitus type 2 #10. Depression Plan: We'll obtain lower extremity Dopplers, not convinced this is a presentation of pulmonary embolism, and patient's hypoxic respiratory a failure most likely related to fluid overload. Maintain aspiration precautions, continue IV diuretics, continue monitoring renal profile, daily electrolytes, repeat chest x-ray in the morning, daily weights and accurate intake and output. We'll con tinue to closely monitor I performed a history & physical examination of the patient and discussed their management with my nurse practitioner, Char Rivas. I reviewed the nurse practitioner's note and agree with the documented findings and plan of care. Lung sounds are positive for mild basilar rales. The findings and the impression was discussed with the patient. I attest to the documentation by the nurse practitioner. Time with Patient: Greater than 30
[2019-10-17] MEDS: cloNIDine 0.3 MG/24HR PATCH TRANSDERM SCH (13:43)
[2019-10-17 13:59] LABS: ABG HCO3 22 mmol/L (21-25); ABG Oxygen Saturation 94.1 % (94-97); ABG PCO2 43 mmHg (35-45); ABG PH 7.32 (7.35-7.45); ABG PO2 68 mmHg (83-108); ABG TCO2 23 mmol/L (19-24); Allen Test Performed? Yes
--- NOTE | 2019-10-17 16:17 | P.PN ---
Subjective Progress Note Date: 10/17/19 Principal diagnosis: Acute UTI from cystitis Bradycardia This is a [address] Kristy Ortega. Patient was just at [facility] from October 08. Admitted there with a creatinine of 3.6. Prior to discharge a day ago creatinine was down to 3.2. Seen by Dr. Bocanegra. Renal ultrasound did not show any major abnormality. Corticomedullary differentiation was maintained. Patient came home and felt tired lethargic. Rundown. Appetite has been okay. Baldwin cold. She decided to come back in again. Patient has known diabetes. Baldwin to have diabetic nephropathy. Chronic stable medical conditions include diabetes, GERD, hypertension, hyperlipidemia, obstructive sleep apnea. Patient last labs here on September 04 were 2.93. Also found to be bradycardic. Patient does use a walker. Admitted with metabolic encephalopathy. Ambien and Xanax was discontinued. Patient also found to be hypothermic. Suma hugger given. Given IV fluids. 10/14-more awake today.. Answers questions better. Suma hugger in place. The 25% of breakfast and 75% of lunch. Laying in bed. Tired. 10/16/2019 Patient is currently sitting in the chair. Awake alert and oriented without seems to be confused. Blood pressure still elevated patient was started on Catapres patch and metoprolol has been discontinued due to bradycardia. Heart rate went up to 66 now. Laboratory data showed BUN 44 and creatinine 2.94 Potassium 5.4 bicarb is 21 magnesium 1.7 Patient had chest x-ray this morning showed bibasilar infiltrate and small effusion correlate for interstitial pneumonitis versus congestion. Underlying pneumonia in the differential diagnosis. Patient was given a dose of IV Lasix. VQ scan showed intermediate probability for pulmonary embolism. CT chest could not be done due to elevated creatinine level. Patient is currently requiring oxygen at 4 L via nasal cannula. Patient is not on home oxygen. No complaints of chest pain. No nausea vomiting or abdominal pain or diarrhea. No headache or dizziness. 10/17/2019 Patient is currently sitting in a chair seems fairly confused. Awake alert oriented 3. Still having shortness of breath and requiring oxygen at 4 L when as a cannula. Due to pleural effusion and vascular congestion patient was started on IV Lasix 40 mg twice daily. Patient is being continued on antibiotics for possible pneumonia. Patient had VQ scan showed moderate probability for PE and was started on therapeutic dose of Lovenox. Pulmonary was consulted for further evaluation and development of long-term anticoagulation. blood pressure is better controlled today. Heart rate improved to 70s. Nephrology and cardiology is on board. Pulmonary was consulted. Review of systems: Was done for constitutional, cardiovascular, GI, pulmonary. relevant finding as above Objective - Vital Signs Vital signs: Vital Signs Temp 98.4 F 10/17/19 12:07 Pulse 75 10/17/19 12:07 Resp 20 10/17/19 12:07 BP 181/71 10/17/19 12:07 Pulse Ox 93 L 10/17/19 12:07 Intake & Output 10/16/19 10/17/19 10/17/19 18:59 06:59 18:59 Intake Total 750 720 Output Total 600 Balance 150 720 Intake: Intake, IV Titration 240 Amount Sodium Ferric Gluconat- 240 Sucrose 125 mg In Sodium Chloride 0.9% 100 ml @ 100 mls/hr IVPB ONCE ONE Rx#:[id number] Oral 750 480 Output: Urine 600 Other: Voiding Method Bedside Commode Bedside Commode # Voids 3 2 # Bowel Movements 1 1 - Exam PHYSICAL EXAMINATION: Patient is lying in the bed comfortably, no acute distress, awake alert and oriented. Mild confusion.. HEENT: Normocephalic. Neck is supple. Pupils reactive. Nostrils clear. Oral cavity is moist. Ears reveal no drainage. Neck reveals no JVD, carotid bruits, or thyromegaly. CHEST EXAMINATION: Trachea is central. Symmetrical expansion. Bibasilar diminished air entry and no rhonchi or wheezing. Lung greer clear to auscultation and percussion. CARDIAC: Normal S1, S2 with no gallops. No murmurs ABDOMEN: Soft. Bowel sounds normal. No organomegaly. No abdominal bruits. Extremities: Trace bilateral edema. No clubbing or cyanosis Neurologically awake, alert, oriented x3 with well-coordinated movements. No f ocal deficits noted Skin: No rash or skin lesions. Psychiatric: Coperative. Nonsuicidal Musculoskeletal: No joint swelling or deformity. Normal range of motion. - Labs CBC & Chem 7: 10/17/19 07:13 10/17/19 07:13 Labs: Abnormal Lab Results - Last 24 Hours (Table) 10/16/19 10/16/1920 Range/Units 16:00 17:11 20:19 RBC (3.80-5.40) m/uL Hgb (11.4-16.0) gm/dL Hct (34.0-46.0) % RDW (11.5-15.5) % Plt Count (150-450) k/uL Lymphocytes # (1.0-4.8) k/uL D-Dimer (<0.60) mg/L FEU ABG pH (7.35-7.45) ABG pO2 (83-108) mmHg Potassium 5.5 H (3.5-5.1) mmol/L Chloride (98-107) mmol/L Carbon Dioxide (22-30) mmol/L BUN (7-17) mg/dL Creatinine (0.52-1.04) mg/dL Glucose (74-99) mg/dL POC Glucose (mg/dL) 215 H 197 H (75-99) mg/dL 10/17/19 10/17/19 10/17/19 Range/Units 07:00 07:13 07:13 RBC 3.11 L (3.80-5.40) m/uL Hgb 9.0 L (11.4-16.0) gm/dL Hct 28.8 L (34.0-46.0) % RDW 15.6 H (11.5-15.5) % Plt Count 141 L (150-450) k/uL Lymphocytes # 0.3 L (1.0-4.8) k/uL D-Dimer (<0.60) mg/L FEU ABG pH (7.35-7.45) ABG pO2 (83-108) mmHg Potassium 5.5 H (3.5-5.1) mmol/L Chloride 112 H (98-107) mmol/L Carbon Dioxide 20 L (22-30) mmol/L BUN 48 H (7-17) mg/dL Creatinine 3.14 H (0.52-1.04) mg/dL Glucose 157 H (74-99) mg/dL POC Glucose (mg/dL) 167 H (75-99) mg/dL 10/17/19 10/17/19 10/17/19 Range/Units 11:18 12:00 13:49 RBC (3.80-5.40) m/uL Hgb (11.4-16.0) gm/dL Hct (34.0-46.0) % RDW (11.5-15.5) % Plt Count (150-450) k/uL Lymphocytes # (1.0-4.8) k/uL D-Dimer 1.11 H (<0.60) mg/L FEU ABG pH 7.32 L (7.35-7.45) ABG pO2 68 L (83-108) mmHg Potassium (3.5-5.1) mmol/L Chloride (98-107) mmol/L Carbon Dioxide (22-30) mmol/L BUN (7-17) mg/dL Creatinine (0.52-1.04) mg/dL Glucose (74-99) mg/dL POC Glucose (mg/dL) 154 H (75-99) mg/dL Assessment and Plan Assessment: -Acute hypoxic respiratory failure secondary to fluid overload and acute on chronic CHF with diastolic dysfunction. Patient was started on IV Lasix. -Significant bradycardia patient is on Toprol-XL 200 mg. on hold now. Heart rate improved now. -Hypertensive urgency. -Acute kidney injury secondary to ATN secondary to infection. . -Acute UTI from cystitis -Intermediate probability for PE and VQ scan. CTA could not be done due to creatinine level. -Obesity BMI 32.5 -Depression otherwise specified -Metabolic encephalopathy could be from medications. Patient of the hefty dose of Ambien. Cutback on the same.-Slow to respond -GERD -Essential hypertension -Diabetes mellitus type 2 -Diabetic nephropathy, CK D stage IV -Metabolic acidosis from kidney failure -Hypothermic-metabolic on Suma hugger Plan: Continue with IV Lasix. Patient was started on ceftriaxone and azithromycin. Hold Omnicef. Was started on Lovenox 80 mg daily for possible pulmonary embolism. Bilateral lower extremity duplex scan was ordered to rule out DVT. Pulmonary is following. Continue to titrate blood pressure medications. Follow electrolytes, Accu-Cheks are being followed. On sodium bicarbonate. IV fluids. Repeat labs in the morning. Labs the patient sit up in a chair. PTOT. Time with Patient: Greater than 30
[2019-10-17 16:55] LABS: Glucose,Whole Blood 135 mg/dL (75-99)
[2019-10-17 20:31] LABS: Glucose,Whole Blood 146 mg/dL (75-99)
[2019-10-17] MEDS: PIOGLITAZONE 30 MG TAB PO SCH (20:47)
[2019-10-17] MEDS: MELATONIN 3 MG TABLET PO PRN (23:30)
[2019-10-17] MEDS: ACETAMINOPHEN TAB 325 MG TAB PO PRN (23:34)
[2019-10-18 07:14] LABS: Glucose,Whole Blood 147 mg/dL (75-99)
[2019-10-18] MEDS: LOSARTAN 50 MG TAB PO SCH (07:46)
[2019-10-18] MEDS: MAGNESIUM OXIDE 400 MG TAB PO SCH ×3 (07:46→20:38)
[2019-10-18] MEDS: INSULIN ASPART (NovoLOG) 100 UNIT/ML VIAL SQ SCH ×4 (07:46→20:39)
[2019-10-18] MEDS: amLODIPine 10 MG TAB PO SCH (07:46)
[2019-10-18] MEDS: hydrALAZINE HCL 50 MG TAB PO SCH ×3 (07:46→20:38)
[2019-10-18] MEDS: AZITHROMYCIN 500 MG TAB PO SCH (07:47)
[2019-10-18] MEDS: SODIUM BICARBONATE TAB 650 MG TAB PO SCH ×2 (07:47→20:38)
[2019-10-18] MEDS: ASPIRIN 81 MG PO SCH (07:47)
[2019-10-18] MEDS: FUROSEMIDE 10 MG/ML 4 ML VIAL IV SCH (07:47)
[2019-10-18] MEDS: CALCIUM ACETATE 667 MG TAB PO SCH ×3 (07:47→17:44)
[2019-10-18] MEDS: PANTOPRAZOLE 40 MG TABLET PO SCH (07:47)
[2019-10-18] MEDS: ENOXAPARIN 80 MG/0.8 ML SYRINGE SQ SCH (07:48)
[2019-10-18 08:25] LABS: Calcium 9.3 mg/dL (8.4-10.2); Magnesium 1.7 mg/dL (1.6-2.3)
[2019-10-18 08:48] LABS: Potassium 6.1 mmol/L (3.5-5.1)
[2019-10-18] MEDS ORDERED: DEXTROSE 50% SYRINGE 50 ML IVP STA (09:17)
[2019-10-18] MEDS ORDERED: SODIUM BICARB 8.4% 50 ML SYR (1 MEQ/ML) IV STA (09:18)
[2019-10-18] MEDS ORDERED: INSULIN REGULAR 100 UNIT/ML VIAL IV ONE (09:20)
[2019-10-18] MEDS ORDERED: FUROSEMIDE 10 MG/ML 2 ML VIAL IV ONE (09:20)
--- NOTE | 2019-10-18 10:56 | P.PN ---
Subjective Patient is seen in follow-up for acute kidney injury and chronic kidney disease. Renal function a little worse today due to diuretics. Oral intake good. No vomiting or diarrhea. She has been voiding but accurate urine output not measured. Blood pressure on the higher side. Remains edematous. Currently maintained on IV Lasix. Potassium level .1 this morning. Vital signs are stable. General: The patient appeared well nourished and normally developed. HEENT: Head exam is unremarkable. Neck is without jugular venous distension. LUNGS: Breath sounds decreased. HEART: Rate and Rhythm are regular. ABDOMEN: Soft, nontender. EXTREMITITES: 2+ edema. Objective - Vital Signs Vital signs: Vital Signs Temp 98.3 F 10/18/19 05:00 Pulse 77 10/18/19 05:00 Resp 20 10/18/19 05:00 BP 189/77 10/18/19 05:00 Pulse Ox 91 L 10/18/19 05:00 Intake & Output 10/17/19 10/18/19 10/18/19 18:59 06:59 18:59 Intake Total 910 360 Output Total 300 Balance 610 360 Weight 91.5 kg Intake: Intake, IV Titration 50 Amount cefTRIAXone 1 gm In 50 Sodium Chloride 0.9% 50 ml @ 100 mls/hr IVPB Q24HR [facility] Rx#:[id number] Oral 860 360 Output: Urine 300 Other: Voiding Method Bedside Commode Bedside Commode # Voids 2 1 - Labs CBC & Chem 7: 10/17/19 07:13 10/18/19 06:57 Labs: Abnormal Lab Results - Last 24 Hours (Table) 10/17/19 10/17/19 10/17/19 Range/Units 11:18 12:00 13:49 D-Dimer 1.11 H (<0.60) mg/L FEU ABG pH 7.32 L (7.35-7.45) ABG pO2 68 L (83-108) mmHg Potassium (3.5-5.1) mmol/L Chloride (98-107) mmol/L Carbon Dioxide (22-30) mmol/L BUN (7-17) mg/dL Creatinine (0.52-1.04) mg/dL Glucose (74-99) mg/dL POC Glucose (mg/dL) 154 H (75-99) mg/dL 10/17/19 10/17/1910/17/20 Range/Units 16:54 20:30 06:57 D-Dimer (<0.60) mg/L FEU ABG pH (7.35-7.45) ABG pO2 (83-108) mmHg Potassium 6.1 H* (3.5-5.1) mmol/L Chloride 111 H (98-107) mmol/L Carbon Dioxide 21 L (22-30) mmol/L BUN 54 H (7-17) mg/dL Creatinine 3.26 H (0.52-1.04) mg/dL Glucose 151 H (74-99) mg/dL POC Glucose (mg/dL) 135 H 146 H (75-99) mg/dL 10/18/19 Range/Units 07:11 D-Dimer (<0.60) mg/L FEU ABG pH (7.35-7.45) ABG pO2 (83-108) mmHg Potassium (3.5-5.1) mmol/L Chloride (98-107) mmol/L Carbon Dioxide (22-30) mmol/L BUN (7-17) mg/dL Creatinine (0.52-1.04) mg/dL Glucose (74-99) mg/dL POC Glucose (mg/dL) 147 H (75-99) mg/dL Assessment and Plan Plan: Assessment: 1. Acute kidney injury secondary to ATN secondary to infection and diuresis. Creatinine 3.26 today. No evidence of hydronephrosis noted on ultrasound done in August 2019. No evidence of urinary retention. 2. Chronic kidney disease. Need to establish baseline. Creatinine was 0.9 in September 2015 but recently has been near 3. Etiology is diabetic kidney disease. Does have proteinuria. Further workup outpatient. 3. UTI maintained on antibiotics. 4. Encephalopathy likely related to UTI. No acute changes noted on brain CT. 5. Chronic kidney disease mineral bone disease maintained on PhosLo. 6. Hypertension with chronic kidney disease. 7. Metabolic acidosis secondary to chronic kidney disease maintained on oral bicarbonate. 8. Anemia of chronic kidney disease. Iron deficiency noted. Status post IV iron. Maintained on Aranesp. 9. Hyperkalemia secondary to acute kidney injury and losartan. Plan: Increase Lasix to 60 mg IV twice daily. Insert Hilliard catheter. Strict I's and O's. 2 A of sodium bicarbonate IV push now. 10 units of IV regular insulin with an amp of D50 now. Discontinue losartan. Repeat potassium level at 1 PM. Follow-up cultures. Continue to monitor renal function and urine output. Follow-up chest x-ray.
[2019-10-18 12:20] LABS: Glucose,Whole Blood 153 mg/dL (75-99)
--- NOTE | 2019-10-18 13:43 | P.PN ---
Subjective This is a pleasant 64-year-old female past medical history significant for coronary artery disease, diabetes mellitus, hypertension, dyslipidemia, o bstructive sleep apnea and obesity. We are following secondary to bradycardia. Her Toprol has been discontinued. Laboratory data reviewed, WBC 8.1, hemoglobin 9, platelets 141, d-dimer 1.11, sodium 139, potassium 5.5, creatinine 3.14 and ALT proBNP 8850. Blood pressure 171/73 heart rate 91 afebrile maintaining oxygen saturation on nasal cannula. Currently maintained on amlodipine 10 mg daily, aspirin 81 mg daily, hydralazine 100 mg 3 times a day, losartan 50 mg daily and clonidine 0.2 mg patch. GENERAL: Well-appearing, well-nourished and in no acute distress. NECK: Supple without JVD or thyromegaly. LUNGS: Breath sounds clear to auscultation bilaterally. Respiration equal and unlabored. No wheezes, rales or rhonchi. HEART: Regular rate and rhythm without murmurs, rubs or gallops. S1 and S2 heard. EXTREMITIES: Normal range of motion, bilateral lower extremity pitting edema, mild edema of the arms and hands. No clubbing or cyanosis. Peripheral pulses intact. ASSESSMENT Altered mental status Sinus bradycardia Acute renal failure Fluid overload secondary to ISABEL Urinary tract infection Hyperkalemia Diabetes mellitus Hypertension Dyslipidemia Obstructive sleep apnea Obesity, BMI 33 PLAN Continue lasix per nephrology Increase clonidine to 0.3 mg. Nurse Practitioner note has been reviewed, I agree with a documented findings and plan of care. Patient was seen and examined. Objective - Vital Signs Vital signs: Vital Signs Temp 98.4 F 10/17/19 12:07 Pulse 75 10/17/19 12:07 Resp 20 10/17/19 12:07 BP 181/71 10/17/19 12:07 Pulse Ox 93 L 10/17/19 12:07 Intake & Output 10/16/19 10/17/19 10/17/19 18:59 06:59 18:59 Intake Total 750 720 Output Total 600 Balance 150 720 Intake: Intake, IV Titration 240 Amount Sodium Ferric Gluconat- 240 Sucrose 125 mg In Sodium Chloride 0.9% 100 ml @ 100 mls/hr IVPB ONCE ONE Rx#:[id number] Oral 750 480 Output: Urine 600 Other: Voiding Method Bedside Commode Bedside Commode # Voids 3 2 # Bowel Movements 1 1 - Labs CBC & Chem 7: 10/17/19 07:13 10/18/19 06:57 Labs: Abnormal Lab Results - Last 24 Hours (Table) 10/16/19 10/16/19 10/16/19 Range/Units 16:00 17:11 20:19 RBC (3.80-5.40) m/uL Hgb (11.4-16.0) gm/dL Hct (34.0-46.0) % RDW (11.5-15.5) % Plt Count (150-450) k/uL Lymphocytes # (1.0-4.8) k/uL D-Dimer (<0.60) mg/L FEU Potassium 5.5 H (3.5-5.1) mmol/L Chloride (98-107) mmol/L Carbon Dioxide (22-30) mmol/L BUN (7-17) mg/dL Creatinine (0.52-1.04) mg/dL Glucose (74-99) mg/dL POC Glucose (mg/dL) 215 H 197 H (75-99) mg/dL 10/17/19 10/17/19 10/17/19 Range/Units 07:00 07:13 07:13 RBC 3.11 L (3.80-5.40) m/uL Hgb 9.0 L (11.4-16.0) gm/dL Hct 28.8 L (34.0-46.0) % RDW 15.6 H (11.5-15.5) % Plt Count 141 L (150-450) k/uL Lymphocytes # 0.3 L (1.0-4.8) k/uL D-Dimer (<0.60) mg/L FEU Potassium 5.5 H (3.5-5.1) mmol/L Chloride 112 H (98-107) mmol/L Carbon Dioxide 20 L (22-30) mmol/L BUN 48 H (7-17) mg/dL Creatinine 3.14 H (0.52-1.04) mg/dL Glucose 157 H (74-99) mg/dL POC Glucose (mg/dL) 167 H (75-99) mg/dL 10/17/19 10/17/19 Range/Units 11:18 12:00 RBC (3.80-5.40) m/uL Hgb (11.4-16.0) gm/dL Hct (34.0-46.0) % RDW (11.5-15.5) % Plt Count (150-450) k/uL Lymphocytes # (1.0-4.8) k/uL D-Dimer 1.11 H (<0.60) mg/L FEU Potassium (3.5-5.1) mmol/L Chloride (98-107) mmol/L Carbon Dioxide (22-30) mmol/L BUN (7-17) mg/dL Creatinine (0.52-1.04) mg/dL Glucose (74-99) mg/dL POC Glucose (mg/dL) 154 H (75-99) mg/dL
[2019-10-18] MEDS: MULTIVITAMINS, THERA 1 EACH TAB PO SCH (13:45)
--- NOTE | 2019-10-18 13:49 | P.PN ---
Subjective This is a pleasant 64-year-old female past medical history significant for coronary artery disease, diabetes mellitus, hypertension, dyslipidemia, o bstructive sleep apnea and obesity. We are following secondary to bradycardia. Her Toprol has been discontinued. Laboratory data reviewed, sodium 140, potassium 6.1, creatinine 3.26 and magnesium 1.7. Blood pressure 189/77 heart rate 77 afebrile maintaining oxygen saturation on nasal cannula. She is seen and examined sitting up in the chair in no acute distress. She states overall she feels quite tired and weak. No chest pain, dizziness or palpitations. She denies shortness of breath however, appears dyspneic during exam. GENERAL: Well-appearing, well-nourished and in no acute distress. NECK: Supple without JVD or thyromegaly. LUNGS: Faint expiratory wheeze, no rales or rhonchi Respiration equal and unlabored. No wheezes, rales or rhonchi. HEART: Regular rate and rhythm without murmurs, rubs or gallops. S1 and S2 heard. EXTREMITIES: Normal range of motion, bilateral lower extremity pitting edema, mild edema of the arms and hands. No clubbing or cyanosis. Peripheral pulses intact. ASSESSMENT Altered mental status Sinus bradycardia Acute renal failure Fluid overload secondary to ISABEL Urinary tract infection Hyperkalemia Diabetes mellitus Hypertension Dyslipidemia Obstructive sleep apnea Obesity, BMI 33 PLAN Continue IV diuresis per nephrology. Continue to avoid rate lowering agents. Nurse Practitioner note has been reviewed, I agree with a documented findings and plan of care. Patient was seen and examined. Objective - Vital Signs Vital signs: Vital Signs Temp 98.3 F 10/18/19 05:00 Pulse 77 10/18/19 05:00 Resp 20 10/18/19 05:00 BP 189/77 10/18/19 05:00 Pulse Ox 91 L 10/18/19 05:00 Intake & Output 10/17/19 10/18/19 10/18/19 18:59 06:59 18:59 Intake Total 910 360 120 Output Total 300 Balance 610 360 120 Weight 91.5 kg Intake: Intake, IV Titration 50 Amount cefTRIAXone 1 gm In 50 Sodium Chloride 0.9% 50 ml @ 100 mls/hr IVPB Q24HR [facility] Rx#:[id number] Oral 860 360 120 Output: Urine 300 Other: Voiding Method Bedside Commode Bedside Commode Bedside Commode # Voids 2 1 - Labs CBC & Chem 7: 10/17/19 07:13 10/18/19 06:57 Labs: Abnormal Lab Results - Last 24 Hours (Table) 10/17/19 10/17/19 10/17/19 Range/Units 13:49 16:54 20:30 ABG pH 7.32 L (7.35-7.45) ABG pO2 68 L (83-108) mmHg Potassium (3.5-5.1) mmol/L Chloride (98-107) mmol/L Carbon Dioxide (22-30) mmol/L BUN (7-17) mg/dL Creatinine (0.52-1.04) mg/dL Glucose (74-99) mg/dL POC Glucose (mg/dL) 135 H 146 H (75-99) mg/dL 10/18/19 10/18/19 10/18/19 Range/Units 06:57 07:11 12:16 ABG pH (7.35-7.45) ABG pO2 (83-108) mmHg Potassium 6.1 H* (3.5-5.1) mmol/L Chloride 111 H (98-107) mmol/L Carbon Dioxide 21 L (22-30) mmol/L BUN 54 H (7-17) mg/dL Creatinine 3.26 H (0.52-1.04) mg/dL Glucose 151 H (74-99) mg/dL POC Glucose (mg/dL) 147 H 153 H (75-99) mg/dL
--- NOTE | 2019-10-18 13:59 | XR ---
EXAMINATION TYPE: XR chest 1V portable DATE OF EXAM: 10/18/2019 CLINICAL HISTORY: Shortness of breath TECHNIQUE: Portable upright view of the chest obtained. COMPARISON: 10/16/2019 chest radiograph FINDINGS: The mediastinal silhouette is normal. There coarsened interstitial markings. Increased moisés ateral airspace opacities versus comparison. Small bilateral pleural effusions. No pneumothor ax. IMPRESSION: Increased bilateral airspace opacities and small bilateral pleural effusions versus comparison.
--- NOTE | 2019-10-18 14:18 | P.PN ---
Subjective Progress Note Date: 10/18/19 Principal diagnosis: acute hypoxic respiratory failure, intermediate probability VQ scan 64-year-old white female patient of Dr. Kristy Ortega who came in on 10/13/2019 to the emergency department for evaluation of altered mental status. Apparently patient had a recent hospitalization at the [facility] where she was being treated for acute kidney injury, and a urinary tract infection and was being seen by nephrology. Past medical history includes coronary artery disease, diabetes mellitus type 2, hypertension, dyslipidemia, obesity, sleep apnea, previous history of CVA, anxiety, patient is a former smoker, unknown whether or not she has any chronic lung disease however we're told she is not oxygen dependent at baseline. On initial evaluation patient was found to be bradycardic in the 40s, however did not complain of any chest pain or shortness of breath. Her renal function was abnormal, nephrology has been following the patient. Initial blood work showed a white blood cell count of 3.6, hemoglobin of 9.1, sodium of 136, potassium is 4.9, chloride is 109, CO2 is 20, BUN is 50, creatinine is 3.1, troponin was negative at 0.012, proBNP was elevated 2910, LFTs were within normal limits, TSH was within normal limits, urinalysis showed evidence of infection with moderate amount of leuks, increased white blood cell count at 22, occasional bacteria and mucus. Urine culture was negative. Chest x-ray shows minimal pleural reaction in the left lung base, and upon a consolidation or heart failure. Echocardiogram showed preserved LV function with an EF of 55-60%, no evidence of aortic stenosis or regurgitation, mild TR, no evidence of pulmonary hypertension with right-sided pressures of 31.[address] showed cerebral atrophy and chronic small vessel ischemia, no acute intracranial abnormality. Through the course of her stay patient developed significant lower extremity edema, and yesterday developed worsening shortness of breath and a pulse ox in the 80s requiring supplemental oxygen which is currently at 4 L with a pulse ox of 91-93%. She is lethargic, but she is answering questions appropriately, she knew she was in the hospital, she knew the year and the president. She is currently afebrile, a bit hypertensive with systolic in the 170s to 180s, and diastolic in the 70s, she denies any shortness of breath, denies any chest pain or hemoptysis. Yesterday's chest x-ray shows bibasilar infiltrates and small pleural effusion, patient was started on a combination of antibiotics of azithromycin and Rocephin, and IV diuretics. She is incontinent, it's difficult to estimate her net fluid balance, she remains quite edematous on today's exam. D-dimer came back mildly elevated at 1.11. Because of renal function still being abnormal with creatinine of 3.14 VQ scan was obtained showing intermediate probability for pulmonary embolism, and we are asked to see the patient in consultation in regards to possibility of underlying pulmonary embolism patient is awake and alert, in no acute distress, her diuretics have been increased, fluid volume status is improving, her weight is down by 8.2 kilos in the last 3 days, she still has significant amount of peripheral edema in her upper and lower extremities, abdominal wall, but breathing much easier, no complaints of chest pain. Much more awake and alert, breathing easier, she sits up in the recliner. she continues on empiric antibiotics in form of Zithromax and Rocephin for recent history of urinary tract infection, repeat urine culture was negative.today's labs have been reviewed, showing potassium of 6.1 which was treated dextrose, sodium bicarbonate, IV insulin, and repeat blood work is pending. Objective - Vital Signs Vital signs: Vital Signs Temp 98.3 F 10/18/19 05:00 Pulse 77 10/18/19 05:00 Resp 20 10/18/19 05:00 BP 189/77 10/18/19 05:00 Pulse Ox 91 L 10/18/19 05:00 Intake & Output 10/17/19 10/18/19 10/18/19 18:59 06:59 18:59 Intake Total 910 360 120 Output Total 300 Balance 610 360 120 Weight 91.5 kg Intake: Intake, IV Titration 50 Amount cefTRIAXone 1 gm In 50 Sodium Chloride 0.9% 50 ml @ 100 mls/hr IVPB Q24HR [facility] Rx#:[id number] Oral 860 360 120 Output: Urine 300 Other: Voiding Method Bedside Commode Bedside Commode Bedside Commode # Voids 2 1 - Exam GENERAL EXAM: awake and alert 64-year-old white female, sitting up in the recliner, currently on 4 L of oxygen a pulse ox of 91-93%, she is oriented to place, year and the president, although her responses are somewhat slow but appropriate, comfortable in no apparent distress. HEAD: Normocephalic/atraumatic. EYES: Normal reaction of pupils, equal size. Conjunctiva pink, sclera white. NOSE: Clear with pink turbinates. THROAT: No erythema or exudates. NECK: No masses, no JVD, no thyroid enlargement, no adenopathy. CHEST: No chest wall deformity. Symmetrical expansion. LUNGS: Equal air entry with mild crackles at bilateral bases, but no wheeze, rhonchi or dullness. CVS: Regular rate and rhythm, normal S1 and S2, no gallops, no murmurs, no rubs ABDOMEN: Soft, nontender. No hepatosplenomegaly, normal bowel sounds, no guarding or rigidity. EXTREMITIES: No clubbing, 1+ lower extremity edema, no cyanosis, 2+ pulses and upper and lower extremities. MUSCULOSKELETAL: Muscle strength and tone normal. SPINE: No scoliosis or deformity SKIN: No rashes CENTRAL NERVOUS SYSTEM: Somnolent but arousable and oriented -3. No focal deficits, tone is normal in all 4 extremities. - Labs CBC & Chem 7: 10/17/19 07:13 10/18/19 06:57 Labs: Abnormal Lab Results - Last 24 Hours (Table) 10/17/19 10/17/19 10/17/19 Range/Units 13:49 16:54 20:30 ABG pH 7.32 L (7.35-7.45) ABG pO2 68 L (83-108) mmHg Potassium (3.5-5.1) mmol/L Chloride (98-107) mmol/L Carbon Dioxide (22-30) mmol/L BUN (7-17) mg/dL Creatinine (0.52-1.04) mg/dL Glucose (74-99) mg/dL POC Glucose (mg/dL) 135 H 146 H (75-99) mg/dL 10/18/19 10/18/19 10/18/19 Range/Units 06:57 07:11 12:16 ABG pH (7.35-7.45) ABG pO2 (83-108) mmHg Potassium 6.1 H* (3.5-5.1) mmol/L Chloride 111 H (98-107) mmol/L Carbon Dioxide 21 L (22-30) mmol/L BUN 54 H (7-17) mg/dL Creatinine 3.26 H (0.52-1.04) mg/dL Glucose 151 H (74-99) mg/dL POC Glucose (mg/dL) 147 H 153 H (75-99) mg/dL Assessment and Plan Plan: Assessment: #1. Acute hypoxic respiratory failure likely related to fluid overload, acute exacerbation of CHF with preserved left surgical systolic function and EF of 55- 60% and no significant valvular abnormality and no evidence of pulmonary hypertension. #2. Intermediate probability VQ scan for pulmonary embolism, and mildly elevated d-dimer, both nonspecific, doubt possibility of pulmonary embolism, we'll obtain lower extremity Dopplers #3. Recent history of urinary tract infection with sepsis requiring hospitalization at [facility], with metabolic encephalopathy #4. Acute metabolic encephalopathy, likely related to underlying sepsis, acute kidney injury, improved since admission #5. Bradycardia present on admission, TSH within normal limits, improved, cardiology is following #6. Acute on chronic kidney disease related to ATN secondary to infection, no evidence of hydronephrosis noted on renal ultrasound from August 2019 #7. History of chronic kidney disease stage III #8. History of hypertension #9. Diabetes mellitus type 2 #10. Depression Plan: Today's chest x-ray still shows bilateral airspace opacities and small bilateral pleural effusions and patient still has significant peripheral edema, diuretics have been increased, patient is actually looking and breathing better, and she is more awake and less encephalopathic on today's exam. Continue IV diuretics, continue current medical treatment, continue monitor renal profile and electrolytes, nephrology is following I performed a history & physical examination of the patient and discussed their management with my nurse practitioner, Char Rivas. I reviewed the nurse practitioner's note and agree with the documented findings and plan of care. Lung sounds are positive for mild basilar rales. The findings and the impression was discussed with the patient. I attest to the documentation by the nurse practitioner. Time with Patient: Less than 30
--- NOTE | 2019-10-18 14:27 | CDI ---
Documentation Clarification Form Date: 10/18/2019 02:14:00 PM From: Ciera PerezBART fontanez, CCDS Admit Date: 10/15/2019 11:02:00 AM Patient Name: Ashlie Pop Visit Number: [id number] Discharge Date: ATTENTION: The Clinical Documentation Specialists (CDI) and [employer] Coding Staff appreciate your assistance in clarifying documentation. Please respond to the clarification below the line at the bottom and electronically sign. The CDI & [employer] Coding staff will review the response and follow-up if needed. Please note: Queries are made part of the Legal Health Record. If you have any questions, please contact the author of this message via ITS. Dr. Marleny Moctezuma and/or Dr. García Espinoza: Per the 10/16 Pulmonary Consult Progress Note: "Recent history of urinary tract infection with sepsis requiring hospitalization at [facility], with metabolic encephalopathy. Acute metabolic encephalopathy, likely related to underlying sepsis, acute kidney injury, improved since admission." History/Risk Factors: Recent admission per above statement. DM, GERD, Hypertension, Hyperlipidemia, Obesity, Sleep Apnea. Clinical Indicators: Presented to the ED on 10/12 with altered mental status. Per EKG: R 42 sinus bradycardia. Admitted to Observation status. Per 10/14 Nephrology Consult: ISABEL with ATN. Per 10/14 Attending Progress Note: Bradycardia, Acute UTI from cystitis, Hypothermic. Admitted as Inpatient. VS 10/12: T 96.6*, P 42*, R 16, BP 105/54, PO 98 RA VS 10/14: T 94.3*, P 43*, R 14, BP 183/64^, PO 93 RA LAB 10/12: WBC 3.6*, RBC 3.12*, Hgb 9.1*, Pl Ct 146*, Lactic Acid: (0.7). UA 10/12: cloudy, 2+ protein, trace glucose, Moderate Esterase, WBC 22. Urine Cx 10/12: negative. LAB 10/14: No CBC, Chemistry: K 5.3^, Cl 116^, CO2 19*, BUN 48^, Cr 2.87^, Gluc 119^, ALT 44^, T Prot 6.9*, Albumin 3.2*. Treatment 10/14: IV Na Bicarb, IV Ferric Na Gluconate, IV fluid 1000 mls @ 50/hr, IV Lasix, IV Rocephin (10/15). In your professional opinion, please clarify if these findings signify one of the following conditions, whether the condition is POA, and cause, if known: Sepsis ruled out Sepsis Severe Sepsis Other, please specify Unable to determine Present on Admission: Yes or No (Last Revision: June 2017) There is no cure evidence of sepsis and altered mental status is not due to sepsis MTDD
--- NOTE | 2019-10-18 16:06 | US ---
EXAMINATION TYPE: US venous doppler duplex LE DATE OF EXAM: 10/17/2019 12:08 PM COMPARISON: NONE CLINICAL HISTORY: DVT. Bilateral ankle edema SIDE PERFORMED: Bilateral TECHNIQUE: The lower extremity deep venous system is examined utilizing real time linear array sonog lavinia with graded compression, doppler sonography and color-flow sonography. VESSELS IMAGED: Common Femoral Vein Deep Femoral Vein Greater Saphenous Vein * Femoral Vein Popliteal Vein Small Saphenous Vein * Proximal Calf Veins (* superficial vessels) There is normal flow, compressibility, vascular waveforms. Right Leg: Negative for DVT Left Leg: Negative for DVT. Left large complex Popliteal Fossa cyst noted = 6.7 x 5.3 x 3.1cm. Bilateral knee and ankle edema channels are noted bilaterally. IMPRESSION: No evident deep venous thrombosis at or above the knees. There is edema present within th e lower extremities, correlate for cellulitis. Lim's cyst noted incidentally on the left.
[2019-10-18 17:02] LABS: Glucose,Whole Blood 214 mg/dL (75-99)
[2019-10-18 20:28] LABS: Glucose,Whole Blood 213 mg/dL (75-99)
[2019-10-18] MEDS: PIOGLITAZONE 30 MG TAB PO SCH (20:38)
[2019-10-18] MEDS: FUROSEMIDE 10 MG/ML 10 ML VIAL IV SCH (20:38)
[2019-10-18] MEDS: ACETAMINOPHEN TAB 325 MG TAB PO PRN (20:51)
[2019-10-19 07:01] LABS: Glucose,Whole Blood 140 mg/dL (75-99)
[2019-10-19] MEDS: PANTOPRAZOLE 40 MG TABLET PO SCH (07:36)
[2019-10-19] MEDS: amLODIPine 10 MG TAB PO SCH (07:36)
[2019-10-19] MEDS: CALCIUM ACETATE 667 MG TAB PO SCH ×3 (07:36→16:54)
[2019-10-19] MEDS: INSULIN ASPART (NovoLOG) 100 UNIT/ML VIAL SQ SCH ×4 (07:36→20:17)
[2019-10-19] MEDS: ASPIRIN 81 MG PO SCH (07:37)
[2019-10-19] MEDS: FUROSEMIDE 10 MG/ML 10 ML VIAL IV SCH ×2 (07:37→12:38)
[2019-10-19] MEDS: AZITHROMYCIN 500 MG TAB PO SCH (07:37)
[2019-10-19] MEDS: ENOXAPARIN 80 MG/0.8 ML SYRINGE SQ SCH (07:37)
[2019-10-19] MEDS: MULTIVITAMINS, THERA 1 EACH TAB PO SCH (07:38)
[2019-10-19] MEDS: MAGNESIUM OXIDE 400 MG TAB PO SCH ×3 (07:38→21:23)
[2019-10-19] MEDS: SODIUM BICARBONATE TAB 650 MG TAB PO SCH ×2 (07:38→20:17)
[2019-10-19] MEDS: hydrALAZINE HCL 50 MG TAB PO SCH ×3 (07:38→21:23)
[2019-10-19 09:25] LABS: Basophils % (A) 0 %; Eosinophils # (A) 0.1 k/uL (0-0.7); Eosinophils % (A) 2 %; HCT 28.3 % (34.0-46.0); Hypochromasia Slight; Lymphocytes # (A) 0.6 k/uL (1.0-4.8); Lymphocytes % (A) 11 %; MCHC 31.7 g/dL (31.0-37.0); MCV 91.3 fL (80.0-100.0); Mean Platelet Volume 7.7; Monocytes # (A) 0.4 k/uL (0-1.0); Monocytes % (A) 7 %; Neutrophils # (A) 4.1 k/uL (1.3-7.7); Neutrophils % (A) 78 %; Platelet Count 155 k/uL (150-450); RDW 15.3 % (11.5-15.5); WBC 5.3 k/uL (3.8-10.6)
[2019-10-19 09:27] LABS: Calcium 8.7 mg/dL (8.4-10.2); Magnesium 1.6 mg/dL (1.6-2.3); Potassium 4.6 mmol/L (3.5-5.1)
--- NOTE | 2019-10-19 11:02 | P.PN ---
Subjective This is a pleasant 64-year-old female past medical history significant for coronary artery disease, diabetes mellitus, hypertension, dyslipidemia, o bstructive sleep apnea and obesity. She is seen and examined sitting up in the chair in no acute distress. There is some noted dried blood around her left and there. She denies any significant epistaxis. She denies shortness of breath, chest pain, dizziness or palpitations. She is overall quite frustrated that she is not really improving since admission. Laboratory data reviewed, WBC 5.3, he moglobin 9, platelets 155, sodium 140, potassium 4.6, creatinine 3.15 and magnesium 1.6. Blood pressure 171/75 heart rate 81 afebrile maintaining oxygen saturation on nasal cannula. Currently maintained on amlodipine 10 mg daily, aspirin 81 mg daily, clonidine 0.3 mg patch, Lasix 60 mg IV twice a day and hydralazine 100 mg 3 times a day. Chest x-ray obtained yesterday reveals increased bilateral airspace opacities and small bilateral pleural effusions new since October 15. GENERAL: Well-appearing, well-nourished and in no acute distress. NECK: Supple without JVD or thyromegaly. LUNGS: Clear bilaterally, diminished, no wheezes, rales or rhonchi Respiration equal and unlabored. No wheezes, rales or rhonchi. HEART: Regular rate and rhythm without murmurs, rubs or gallops. S1 and S2 heard. EXTREMITIES: Normal range of motion, bilateral lower extremity pitting edema, mild edema of the arms and hands. No clubbing or cyanosis. Peripheral pulses intact. ASSESSMENT Altered mental status Sinus bradycardia, resolved Acute renal failure Fluid overload secondary to ISABEL Urinary tract infection Hyperkalemia Diabetes mellitus Hypertension Dyslipidemia Obstructive sleep apnea Obesity, BMI 33 PLAN Continue IV diuresis per nephrology. Consider lasix gtt. Repeat BMP in the morning. Request humidification be added to her oxygen flow secondary to dryness noted in her nares. Nurse Practitioner note has been reviewed, I agree with a documented findings and plan of care. Patient was seen and examined. Objective - Vital Signs Vital signs: Vital Signs Temp 97.9 F 10/19/19 04:58 Pulse 81 10/19/19 04:58 Resp 18 10/19/19 04:58 BP 171/75 10/19/19 04:58 Pulse Ox 95 10/19/19 04:58 Intake & Output 10/18/19 10/19/19 10/19/19 18:59 06:59 18:59 Intake Total 120 Output Total 1600 Balance 120 -1600 Weight 106.5 kg Intake: Oral 120 Output: Urine 1600 Other: Voiding Method Bedside Commode Bedside Commode # Bowel Movements 1 - Labs CBC & Chem 7: 10/19/19 08:21 10/19/19 08:21 Labs: Abnormal Lab Results - Last 24 Hours (Table) 10/18/19 10/18/19 10/18/19 Range/Units 12:16 17:01 20:25 RBC (3.80-5.40) m/uL Hgb (11.4-16.0) gm/dL Hct (34.0-46.0) % Lymphocytes # (1.0-4.8) k/uL Chloride (98-107) mmol/L BUN (7-17) mg/dL Creatinine (0.52-1.04) mg/dL Glucose (74-99) mg/dL POC Glucose (mg/dL) 153 H 214 H 213 H (75-99) mg/dL 10/19/19 10/19/19 10/19/19 Range/Units 07:00 08:21 08:21 RBC 3.10 L (3.80-5.40) m/uL Hgb 9.0 L (11.4-16.0) gm/dL Hct 28.3 L (34.0-46.0) % Lymphocytes # 0.6 L (1.0-4.8) k/uL Chloride 108 H (98-107) mmol/L BUN 50 H (7-17) mg/dL Creatinine 3.15 H (0.52-1.04) mg/dL Glucose 133 H (74-99) mg/dL POC Glucose (mg/dL) 140 H (75-99) mg/dL
--- NOTE | 2019-10-19 11:25 | P.PN ---
Subjective Patient is seen in follow-up for acute kidney injury and chronic kidney disease. Renal function a little better today. Oral intake is fair. No vomiting or diarrhea. Potassium level normal. Has a Hilliard catheter. Nonoliguric. Maintain on IV Lasix. Vital signs are stable. General: The patient appeared well nourished and normally developed. HEENT: Head exam is unremarkable. Neck is without jugular venous distension. LUNGS: Breath sounds decreased. HEART: Rate and Rhythm are regular. ABDOMEN: Soft, nontender. EXTREMITITES: 2+ edema. Objective - Vital Signs Vital signs: Vital Signs Temp 97.9 F 10/19/19 04:58 Pulse 81 10/19/19 04:58 Resp 18 10/19/19 04:58 BP 171/75 10/19/19 04:58 Pulse Ox 95 10/19/19 04:58 Intake & Output 10/18/19 10/19/19 10/19/19 18:59 06:59 18:59 Intake Total 120 Output Total 1600 Balance 120 -1600 Weight 106.5 kg Intake: Oral 120 Output: Urine 1600 Other: Voiding Method Bedside Commode Bedside Commode # Bowel Movements 1 - Labs CBC & Chem 7: 10/19/19 08:21 10/19/19 08:21 Labs: Abnormal Lab Results - Last 24 Hours (Table) 10/18/19 10/18/19 10/18/19 Range/Units 12:16 17:01 20:25 RBC (3.80-5.40) m/uL Hgb (11.4-16.0) gm/dL Hct (34.0-46.0) % Lymphocytes # (1.0-4.8) k/uL Chloride (98-107) mmol/L BUN (7-17) mg/dL Creatinine (0.52-1.04) mg/dL Glucose (74-99) mg/dL POC Glucose (mg/dL) 153 H 214 H 213 H (75-99) mg/dL 10/19/19 10/19/19 10/19/19 Range/Units 07:00 08:21 08:21 RBC 3.10 L (3.80-5.40) m/uL Hgb 9.0 L (11.4-16.0) gm/dL Hct 28.3 L (34.0-46.0) % Lymphocytes # 0.6 L (1.0-4.8) k/uL Chloride 108 H (98-107) mmol/L BUN 50 H (7-17) mg/dL Creatinine 3.15 H (0.52-1.04) mg/dL Glucose 133 H (74-99) mg/dL POC Glucose (mg/dL) 140 H (75-99) mg/dL Assessment and Plan Plan: Assessment: 1. Acute kidney injury secondary to ATN secondary to infection and diuresis. Creatinine fairly stable at 3.15 today. No evidence of hydronephrosis noted on ultrasound done in August 2019. No evidence of urinary retention. 2. Chronic kidney disease. Need to establish baseline. Creatinine was 0.9 in September 2015 but recently has been near 3. Etiology is diabetic kidney disease. Does have proteinuria. Further workup outpatient. 3. UTI maintained on antibiotics. 4. Encephalopathy likely related to UTI. No acute changes noted on brain CT. 5. Chronic kidney disease mineral bone disease maintained on PhosLo. 6. Hypertension with chronic kidney disease. Blood pressure on the higher side. Partially volume sensitive. 7. Metabolic acidosis secondary to chronic kidney disease maintained on oral b icarbonate. 8. Anemia of chronic kidney disease. Iron deficiency noted. Status post IV iron. Maintained on Aranesp. 9. Hyperkalemia secondary to acute kidney injury and losartan. Improved with m edical management. 10. Volume overload. Plan: Discontinue IV Lasix and start Lasix drip at 10 mL an hour. Maintain Hilliard catheter. Strict I's and O's. Discontinued losartan on October 17 due to hyperkalemia. Not on a beta violeta due to bradycardia on admission.
[2019-10-19] MEDS ORDERED: FUROSEMIDE 100 MG in SODIUM CHLORIDE 0.9% 90 ML IV SCH (11:30)
[2019-10-19 11:32] LABS: Glucose,Whole Blood 142 mg/dL (75-99)
--- NOTE | 2019-10-19 11:37 | P.PN ---
Subjective Progress Note Date: 10/19/19 Principal diagnosis: acute hypoxic respiratory failure, intermediate probability VQ scan 64-year-old white female patient of Dr. Kristy Ortega who came in on 10/13/2019 to the emergency department for evaluation of altered mental status. Apparently patient had a recent hospitalization at the [facility] where she was being treated for acute kidney injury, and a urinary tract infection and was being seen by nephrology. Past medical history includes coronary artery disease, diabetes mellitus type 2, hypertension, dyslipidemia, obesity, sleep apnea, previous history of CVA, anxiety, patient is a former smoker, unknown whether or not she has any chronic lung disease however we're told she is not oxygen dependent at baseline. On initial evaluation patient was found to be bradycardic in the 40s, however did not complain of any chest pain or shortness of breath. Her renal function was abnormal, nephrology has been following the patient. Initial blood work showed a white blood cell count of 3.6, hemoglobin of 9.1, sodium of 136, potassium is 4.9, chloride is 109, CO2 is 20, BUN is 50, creatinine is 3.1, troponin was negative at 0.012, proBNP was elevated 2910, LFTs were within normal limits, TSH was within normal limits, urinalysis showed evidence of infection with moderate amount of leuks, increased white blood cell count at 22, occasional bacteria and mucus. Urine culture was negative. Chest x-ray shows minimal pleural reaction in the left lung base, and upon a consolidation or heart failure. Echocardiogram showed preserved LV function with an EF of 55-60%, no evidence of aortic stenosis or regurgitation, mild TR, no evidence of pulmonary hypertension with right-sided pressures of 31.[address] showed cerebral atrophy and chronic small vessel ischemia, no acute intracranial abnormality. Through the course of her stay patient developed significant lower extremity edema, and yesterday developed worsening shortness of breath and a pulse ox in the 80s requiring supplemental oxygen which is currently at 4 L with a pulse ox of 91-93%. She is lethargic, but she is answering questions appropriately, she knew she was in the hospital, she knew the year and the president. She is currently afebrile, a bit hypertensive with systolic in the 170s to 180s, and diastolic in the 70s, she denies any shortness of breath, denies any chest pain or hemoptysis. Yesterday's chest x-ray shows bibasilar infiltrates and small pleural effusion, patient was started on a combination of antibiotics of azithromycin and Rocephin, and IV diuretics. She is incontinent, it's difficult to estimate her net fluid balance, she remains quite edematous on today's exam. D-dimer came back mildly elevated at 1.11. Because of renal function still being abnormal with creatinine of 3.14 VQ scan was obtained showing intermediate probability for pulmonary embolism, and we are asked to see the patient in consultation in regards to possibility of underlying pulmonary embolism patient is awake and alert, in no acute distress, her diuretics have been increased, fluid volume status is improving, her weight is down by 8.2 kilos in the last 3 days, she still has significant amount of peripheral edema in her upper and lower extremities, abdominal wall, but breathing much easier, no complaints of chest pain. Much more awake and alert, breathing easier, she sits up in the recliner. she continues on empiric antibiotics in form of Zithromax and Rocephin for recent history of urinary tract infection, repeat urine culture was negative.today's labs have been reviewed, showing potassium of 6.1 which was treated dextrose, sodium bicarbonate, IV insulin, and repeat blood work is pending. On 10/19/2019 patient seen in follow-up on medical surgical floor, she is awake and alert, she is sitting up in the recliner, she is breathing easier, still has significant peripheral edema in her upper and lower extremities, her Lasix dose was increased yesterday, patient is diuresing, she is in negative fluid balance -1.4 L over the last 24 hours. No new chest x-ray today. Mentation has significantly improved in the last couple of days, patient is much more alert, she is oriented 3, she denies any acute distress. No fever or chills, she remains on antibiotics in the form of Zithromax and Rocephin and there is a possibility that she may have had some aspiration pneumonia, for patient is ALLERGIC to penicillins. No hemoptysis, no significant cough or congestion, lung sounds reveal diminished breath sounds with some basilar crackles at the b ases. Breathing is comfortable. No complaints of chest pain. Objective - Vital Signs Vital signs: Vital Signs Temp 97.9 F 10/19/19 04:58 Pulse 81 10/19/19 04:58 Resp 18 10/19/19 04:58 BP 171/75 10/19/19 04:58 Pulse Ox 95 10/19/19 04:58 Intake & Output 10/18/19 10/19/19 10/19/19 18:59 06:59 18:59 Intake Total 120 Output Total 1600 Balance 120 -1600 Weight 106.5 kg Intake: Oral 120 Output: Urine 1600 Other: Voiding Method Bedside Commode Bedside Commode # Bowel Movements 1 - Exam GENERAL EXAM: awake and alert 64-year-old white female, sitting up in the recliner, currently on 4 L of oxygen a pulse ox of 95%, she is oriented to place, year and the president, although her responses are somewhat slow but appr opriate, comfortable in no apparent distress. HEAD: Normocephalic/atraumatic. EYES: Normal reaction of pupils, equal size. Conjunctiva pink, sclera white. NOSE: Clear with pink turbinates. THROAT: No erythema or exudates. NECK: No masses, no JVD, no thyroid enlargement, no adenopathy. CHEST: No chest wall deformity. Symmetrical expansion. LUNGS: Equal air entry with mild crackles at bilateral bases, but no wheeze, rhonchi or dullness. CVS: Regular rate and rhythm, normal S1 and S2, no gallops, no murmurs, no rubs ABDOMEN: Soft, nontender. No hepatosplenomegaly, normal bowel sounds, no guar ding or rigidity. EXTREMITIES: No clubbing, 1+ lower extremity edema, no cyanosis, 2+ pulses and upper and lower extremities. MUSCULOSKELETAL: Muscle strength and tone normal. SPINE: No scoliosis or deformity SKIN: No rashes CENTRAL NERVOUS SYSTEM: Somnolent but arousable and oriented -3. No focal deficits, tone is normal in all 4 extremities. - Labs CBC & Chem 7: 10/19/19 08:21 10/19/19 08:21 Labs: Abnormal Lab Results - Last 24 Hours (Table) 10/18/19 10/18/19 10/18/19 Range/Units 12:16 17:01 20:25 RBC (3.80-5.40) m/uL Hgb (11.4-16.0) gm/dL Hct (34.0-46.0) % Lymphocytes # (1.0-4.8) k/uL Chloride (98-107) mmol/L BUN (7-17) mg/dL Creatinine (0.52-1.04) mg/dL Glucose (74-99) mg/dL POC Glucose (mg/dL) 153 H 214 H 213 H (75-99) mg/dL 10/19/19 10/19/19 10/19/19 Range/Units 07:00 08:21 08:21 RBC 3.10 L (3.80-5.40) m/uL Hgb 9.0 L (11.4-16.0) gm/dL Hct 28.3 L (34.0-46.0) % Lymphocytes # 0.6 L (1.0-4.8) k/uL Chloride 108 H (98-107) mmol/L BUN 50 H (7-17) mg/dL Creatinine 3.15 H (0.52-1.04) mg/dL Glucose 133 H (74-99) mg/dL POC Glucose (mg/dL) 140 H (75-99) mg/dL Assessment and Plan Plan: Assessment: #1. Acute hypoxic respiratory failure likely related to fluid overload, acute exacerbation of CHF with preserved left surgical systolic function and EF of 55- 60% and no significant valvular abnormality and no evidence of pulmonary hypertension. Possibility of aspiration pneumonia is considered especially in view of patient's altered mental status on admission. Patient is covered with azithromycin and Rocephin, has ALLERGIES to penicillins #2. Intermediate probability VQ scan for pulmonary embolism, and mildly elevated d-dimer, both nonspecific, doubt possibility of pulmonary embolism, we'll obtain lower extremity Dopplers #3. Recent history of urinary tract infection with sepsis requiring hospitalization at [facility], with metabolic encephalopathy #4. Acute metabolic encephalopathy, likely related to underlying sepsis, acute kidney injury, improved since admission #5. Bradycardia present on admission, TSH within normal limits, improved, cardiology is following #6. Acute on chronic kidney disease related to ATN secondary to infection, no evidence of hydronephrosis noted on renal ultrasound from August 2019 #7. History of chronic kidney disease stage III #8. History of hypertension #9. Diabetes mellitus type 2 #10. Depression Plan: Continue diuretics, continue antibiotics, possibility of aspiration pneumonia is a consideration especially in view of patient's altered mental status on presentation, current antibiotics are with azithromycin and Rocephin, will continue current antibiotic coverage, continue monitoring daily electrolytes and renal profile. Weaning FiO2, encourage deep breathing and coughing, recent activity as tolerated. Follow-up chest x-ray in the morning I performed a history & physical examination of the patient and discussed their management with my nurse practitioner, Char Rivas. I reviewed the nurse practitioner's note and agree with the documented findings and plan of care. Lung sounds are positive for mild basilar rales. The findings and the impression was discussed with the patient. I attest to the documentation by the nurse practitioner. Time with Patient: Less than 30
[2019-10-19] MEDS ORDERED: FUROSEMIDE 20 MG TAB PO SCH (15:03)
[2019-10-19] MEDS: FUROSEMIDE 100 MG in SODIUM CHLORIDE 0.9% 90 ML IV SCH (16:41)
[2019-10-19 17:36] LABS: Glucose,Whole Blood 160 mg/dL (75-99)
[2019-10-19 19:58] LABS: Glucose,Whole Blood 178 mg/dL (75-99)
[2019-10-19] MEDS: ACETAMINOPHEN TAB 325 MG TAB PO PRN (20:17)
[2019-10-19] MEDS: PIOGLITAZONE 30 MG TAB PO SCH (20:17)
[2019-10-20] MEDS: FUROSEMIDE 100 MG in SODIUM CHLORIDE 0.9% 90 ML IV SCH ×3 (00:08→22:11)
--- NOTE | 2019-10-20 02:12 | P.PN ---
Subjective Progress Note Date: 10/18/19 Principal diagnosis: Acute UTI from cystitis Bradycardia This is a [address] Kristy Ortega. Patient was just at [facility] from October 08. Admitted there with a creatinine of 3.6. Prior to discharge a day ago creatinine was down to 3.2. Seen by Dr. Bocanegra. Renal ultrasound did not show any major abnormality. Corticomedullary differentiation was maintained. Patient came home and felt tired lethargic. Rundown. Appetite has been okay. [place] cold. She decided to come back in again. Patient has known diabetes. [place] to have diabetic nephropathy. Chronic stable medical conditions include diabetes, GERD, hypertension, hyperlipidemia, obstructive sleep apnea. Patient last labs here on September 04 were 2.93. Also found to be bradycardic. Patient does use a walker. Admitted with metabolic encephalopathy. Ambien and Xanax was discontinued. Patient also found to be hypothermic. Suma hugger given. Given IV fluids. 10/14-more awake today.. Answers questions better. Suma hugger in place. The 25% of breakfast and 75% of lunch. Laying in bed. Tired. 10/16/2019 Patient is currently sitting in the chair. Awake alert and oriented without seems to be confused. Blood pressure still elevated patient was started on Catapres patch and metoprolol has been discontinued due to bradycardia. Heart rate went up to 66 now. Laboratory data showed BUN 44 and creatinine 2.94 Potassium 5.4 bicarb is 21 magnesium 1.7 Patient had chest x-ray this morning showed bibasilar infiltrate and small effusion correlate for interstitial pneumonitis versus congestion. Underlying pneumonia in the differential diagnosis. Patient was given a dose of IV Lasix. VQ scan showed intermediate probability for pulmonary embolism. CT chest could not be done due to elevated creatinine level. Patient is currently requiring oxygen at 4 L via nasal cannula. Patient is not on home oxygen. No complaints of chest pain. No nausea vomiting or abdominal pain or diarrhea. No headache or dizziness. 10/17/2019 Patient is currently sitting in a chair seems fairly confused. Awake alert oriented 3. Still having shortness of breath and requiring oxygen at 4 L when as a cannula. Due to pleural effusion and vascular congestion patient was started on IV Lasix 40 mg twice daily. Patient is being continued on antibiotics for possible pneumonia. Patient had VQ scan showed moderate probability for PE and was started on therapeutic dose of Lovenox. Pulmonary was consulted for further evaluation and development of long-term anticoagulation. blood pressure is better controlled today. Heart rate improved to 70s. Nephrology and cardiology is on board. Pulmonary was consulted. 10/17/2017 Patient is currently sitting in the chair. Drowsy and lethargic. Otherwise no acute distress. Currently on oxygen via nasal cannula at 4 L. Patient is being continued on IV Lasix. Also on antibiotics in the form of azithromycin ceftriaxone for possible pneumonia and urinary tract infection. Laboratory showed sodium 140, potassium 6.1 and BUN 54 and creatinine 3.26. Magnesium 1.7 Patient was given dextrose and IV insulin for hyperkalemia. Follow-up potassium level. Pulmonary and nephrology is following. Chest x-ray showed increased bilateral airspace opacities and small bilateral pleural effusions versus 10/16/2019 Review of systems: Was done for constitutional, cardiovascular, GI, pulmonary. relevant finding as above Objective - Vital Signs Vital signs: Vital Signs Temp 97.9 F 10/18/19 20:23 Pulse 76 10/18/19 20:23 Resp 18 10/18/19 20:23 BP 160/75 10/18/19 20:23 Pulse Ox 95 10/18/19 20:23 Intake & Output 10/18/19 10/18/19 10/19/19 06:59 18:59 06:59 Intake Total 360 120 Balance 360 120 Weight 91.5 kg Intake: Oral 360 120 Other: Voiding Method Bedside Commode Bedside Commode Bedside Commode # Voids 1 - Exam PHYSICAL EXAMINATION: Patient is lying in the bed comfortably, no acute distress, awake alert and oriented. Mild confusion.. HEENT: Normocephalic. Neck is supple. Pupils reactive. Nostrils clear. Oral cavity is moist. Ears reveal no drainage. Neck reveals no JVD, carotid bruits, or thyromegaly. CHEST EXAMINATION: Trachea is central. Symmetrical expansion. Bibasilar diminished air entry and no rhonchi or wheezing. Lung greer clear to au scultation and percussion. CARDIAC: Normal S1, S2 with no gallops. No murmurs ABDOMEN: Soft. Bowel sounds normal. No organomegaly. No abdominal bruits. Extremities: 3+ bilateral edema. No clubbing or cyanosis Neurologically awake, alert, oriented x3 with well-coordinated movements. No focal deficits noted Skin: No rash or skin lesions. Psychiatric: Coperative. Nonsuicidal Musculoskeletal: No joint swelling or deformity. Normal range of motion. - Labs CBC & Chem 7: 10/19/19 08:21 10/19/19 08:21 Labs: Abnormal Lab Results - Last 24 Hours (Table) 10/18/19 10/18/19 10/18/19 Range/Units 06:57 07:11 12:16 Potassium 6.1 H* (3.5-5.1) mmol/L Chloride 111 H (98-107) mmol/L Carbon Dioxide 21 L (22-30) mmol/L BUN 54 H (7-17) mg/dL Creatinine 3.26 H (0.52-1.04) mg/dL Glucose 151 H (74-99) mg/dL POC Glucose (mg/dL) 147 H 153 H (75-99) mg/dL 10/18/19 10/18/19 Range/Units 17:01 20:25 Potassium (3.5-5.1) mmol/L Chloride (98-107) mmol/L Carbon Dioxide (22-30) mmol/L BUN (7-17) mg/dL Creatinine (0.52-1.04) mg/dL Glucose (74-99) mg/dL POC Glucose (mg/dL) 214 H 213 H (75-99) mg/dL Assessment and Plan Assessment: -Acute hypoxic respiratory failure secondary to fluid overload and acute on chronic CHF with diastolic dysfunction. Patient was started on IV Lasix. -Significant bradycardia patient was on Toprol-XL 200 mg. on hold now. Heart rate improved now. -Hypertensive urgency. -Acute kidney injury secondary to ATN secondary to infection. . -Acute UTI from cystitis -Intermediate probability for PE and VQ scan. CTA could not be done due to creatinine level. -Obesity BMI 32.5 -Depression otherwise specified -Metabolic encephalopathy could be from medications. Patient of the hefty dose of Ambien. Cutback on the same.-Slow to respond -GERD -Essential hypertension -Diabetes mellitus type 2 -Diabetic nephropathy, CK D stage IV -Metabolic acidosis from kidney failure -Hypothermic-metabolic on Suma hugger Plan: Continue with IV Lasix. Patient was started on ceftriaxone and azithromycin. Hold Omnicef. Was started on Lovenox 80 mg daily for possible pulmonary embolism. Bilateral lower extremity duplex scan negative DVT. chnaged to lovenox 40mg Sq now. Pulmonary is following. Continue to titrate blood pressure medications. Follow electrolytes, Accu-Cheks are being followed. On sodium bicarbonate. IV fluids. Repeat labs in the morning. Labs the patient sit up in a chair. PTOT. Time with Patient: Greater than 30
--- NOTE | 2019-10-20 02:19 | P.PN ---
Subjective Progress Note Date: 10/19/19 Principal diagnosis: Acute UTI from cystitis Bradycardia This is a [address] Kristy Ortega. Patient was just at [facility] from October 08. Admitted there with a creatinine of 3.6. Prior to discharge a day ago creatinine was down to 3.2. Seen by Dr. Bocanegra. Renal ultrasound did not show any major abnormality. Corticomedullary differentiation was maintained. Patient came home and felt tired lethargic. Rundown. Appetite has been okay. Avon cold. She decided to come back in again. Patient has known diabetes. [place] to have diabetic nephropathy. Chronic stable medical conditions include diabetes, GERD, hypertension, hyperlipidemia, obstructive sleep apnea. Patient last labs here on September 04 were 2.93. Also found to be bradycardic. Patient does use a walker. Admitted with metabolic encephalopathy. Ambien and Xanax was discontinued. Patient also found to be hypothermic. Suma hugger given. Given IV fluids. 10/14-more awake today.. Answers questions better. Suma hugger in place. The 25% of breakfast and 75% of lunch. Laying in bed. Tired. 10/16/2019 Patient is currently sitting in the chair. Awake alert and oriented without seems to be confused. Blood pressure still elevated patient was started on Catapres patch and metoprolol has been discontinued due to bradycardia. Heart rate went up to 66 now. Laboratory data showed BUN 44 and creatinine 2.94 Potassium 5.4 bicarb is 21 magnesium 1.7 Patient had chest x-ray this morning showed bibasilar infiltrate and small effusion correlate for interstitial pneumonitis versus congestion. Underlying pneumonia in the differential diagnosis. Patient was given a dose of IV Lasix. VQ scan showed intermediate probability for pulmonary embolism. CT chest could not be done due to elevated creatinine level. Patient is currently requiring oxygen at 4 L via nasal cannula. Patient is not on home oxygen. No complaints of chest pain. No nausea vomiting or abdominal pain or diarrhea. No headache or dizziness. 10/17/2019 Patient is currently sitting in a chair seems fairly confused. Awake alert oriented 3. Still having shortness of breath and requiring oxygen at 4 L when as a cannula. Due to pleural effusion and vascular congestion patient was started on IV Lasix 40 mg twice daily. Patient is being continued on antibiotics for possible pneumonia. Patient had VQ scan showed moderate probability for PE and was started on therapeutic dose of Lovenox. Pulmonary was consulted for further evaluation and development of long-term anticoagulation. blood pressure is better controlled today. Heart rate improved to 70s. Nephrology and cardiology is on board. Pulmonary was consulted. 10/17/2017 Patient is currently sitting in the chair. Drowsy and lethargic. Otherwise no acute distress. Currently on oxygen via nasal cannula at 4 L. Patient is being continued on IV Lasix. Also on antibiotics in the form of azithromycin ceftriaxone for possible pneumonia and urinary tract infection. Laboratory showed sodium 140, potassium 6.1 and BUN 54 and creatinine 3.26. Magnesium 1.7 Patient was given dextrose and IV insulin for hyperkalemia. Follow-up potassium level. Pulmonary and nephrology is following. Chest x-ray showed increased bilateral airspace opacities and small bilateral pleural effusions versus 10/16/2019 10/19/2019 Patient is currently sitting in a chair. Slightly lethargic but awake alert oriented x3. Still having significant bilateral lower extremity edema and is being continued on Lasix. Change to Lasix drip now. No complaints of shortness of breath or chest pain. No fever no chills. Currently on antibiotics in the form of ceftriaxone and azithromycin. Denies any cough or sputum production. Laboratory showed WBC 5.3, hemoglobin 9.0 and platelets 155 Sodium 140, potassium 4.6, chloride 108, BUN 15 creatinine 3.15 Magnesium 1.6 Pulmonary nephrology is following. Review of systems: Was done for constitutional, cardiovascular, GI, pulmonary. relevant finding as above Objective - Vital Signs Vital signs: Vital Signs Temp 98.5 F 10/19/19 19:55 Pulse 82 10/19/19 19:55 Resp 20 10/19/19 19:55 BP 183/73 10/19/19 19:55 Pulse Ox 93 L 10/19/19 19:55 Intake & Output 10/19/19 10/19/19 10/20/19 06:59 18:59 06:59 Intake Total 1680 Output Total 1600 900 Balance -1600 780 Weight 106.5 kg Intake: Oral 1680 Output: Urine 1600 900 Other: Voiding Method Bedside Commode Bedside Commode # Bowel Movements 1 - Exam PHYSICAL EXAMINATION: Patient is lying in the bed comfortably, no acute distress, awake alert and oriented. Mild confusion.. HEENT: Normocephalic. Neck is supple. Pupils reactive. Nostrils clear. Oral cavity is moist. Ears reveal no drainage. Neck reveals no JVD, carotid bruits, or thyromegaly. CHEST EXAMINATION: Trachea is central. Symmetrical expansion. Bibasilar diminished air entry and no rhonchi or wheezing. Lung greer clear to auscultation and percussion. CARDIAC: Normal S1, S2 with no gallops. No murmurs ABDOMEN: Soft. Bowel sounds normal. No organomegaly. No abdominal bruits. Extremities: 3+ bilateral edema. No clubbing or cyanosis Neurologically awake, alert, oriented x3 with well-coordinated movements. No focal deficits noted Skin: No rash or skin lesions. Psychiatric: Coperative. Nonsuicidal Musculoskeletal: No joint swelling or deformity. Normal range of motion. - Labs CBC & Chem 7: 10/19/19 08:21 10/19/19 08:21 Labs: Abnormal Lab Results - Last 24 Hours (Table) 10/19/19 10/19/19 10/19/19 Range/Units 07:00 08:21 08:21 RBC 3.10 L (3.80-5.40) m/uL Hgb 9.0 L (11.4-16.0) gm/dL Hct 28.3 L (34.0-46.0) % Lymphocytes # 0.6 L (1.0-4.8) k/uL Chloride 108 H (98-107) mmol/L BUN 50 H (7-17) mg/dL Creatinine 3.15 H (0.52-1.04) mg/dL Glucose 133 H (74-99) mg/dL POC Glucose (mg/dL) 140 H (75-99) mg/dL 10/19/19 10/19/19 10/19/19 Range/Units 11:31 17:34 19:57 RBC (3.80-5.40) m/uL Hgb (11.4-16.0) gm/dL Hct (34.0-46.0) % Lymphocytes # (1.0-4.8) k/uL Chloride (98-107) mmol/L BUN (7-17) mg/dL Creatinine (0.52-1.04) mg/dL Glucose (74-99) mg/dL POC Glucose (mg/dL) 142 H 160 H 178 H (75-99) mg/dL Assessment and Plan Assessment: -Acute hypoxic respiratory failure secondary to fluid overload and acute on chronic CHF with diastolic dysfunction. Patient was started on IV Lasix. -Significant bradycardia patient was on Toprol-XL 200 mg. on hold now. Heart rate improved now. -Hypertensive urgency. BP controlled now. -Acute kidney injury secondary to ATN secondary to infection. . -Acute UTI from cystitis -Intermediate probability for PE and VQ scan. CTA could not be done due to creatinine level. -Obesity BMI 32.5 -Depression otherwise specified -Metabolic encephalopathy could be from medications. Patient of the hefty dose of Ambien. Cutback on the same.-Slow to respond -GERD -Essential hypertension -Diabetes mellitus type 2 -Diabetic nephropathy, CK D stage IV -Metabolic acidosis from kidney failure -Hypothermic-metabolic on Suma hugger Plan: Continue with IV Lasix. Patient was started on ceftriaxone and azithromycin. Hold Omnicef. Was started on Lovenox 80 mg daily for possible pulmonary embolism. Bilateral lower extremity duplex scan negative DVT. chnaged to lovenox 40mg Sq now. Pulmonary is following. Continue to titrate blood pressure medications. Follow electrolytes, Accu-Cheks are being followed. On sodium bicarbonate. IV fluids. Repeat labs in the morning. Labs the patient sit up in a chair. PTOT. Time with Patient: Greater than 30
[2019-10-20 07:21] LABS: Glucose,Whole Blood 128 mg/dL (75-99)
[2019-10-20] MEDS: INSULIN ASPART (NovoLOG) 100 UNIT/ML VIAL SQ SCH ×4 (07:29→22:14)
[2019-10-20] MEDS: MAGNESIUM SULFATE-D5W PMX 1 GM in DEXTROSE/WATER 1 100ML.BAG IVPB SCH ×2 (07:31→08:52)
[2019-10-20] MEDS: CALCIUM ACETATE 667 MG TAB PO SCH ×3 (07:32→18:09)
[2019-10-20] MEDS: PANTOPRAZOLE 40 MG TABLET PO SCH (07:32)
[2019-10-20] MEDS: ENOXAPARIN 30 MG/0.3 ML SYRINGE SQ SCH (08:47)
[2019-10-20] MEDS: amLODIPine 10 MG TAB PO SCH (08:47)
[2019-10-20] MEDS: ASPIRIN 81 MG PO SCH (08:47)
[2019-10-20] MEDS: AZITHROMYCIN 500 MG TAB PO SCH (08:47)
[2019-10-20] MEDS: SODIUM BICARBONATE TAB 650 MG TAB PO SCH ×2 (08:47→22:12)
[2019-10-20] MEDS: MAGNESIUM OXIDE 400 MG TAB PO SCH ×3 (08:47→22:12)
[2019-10-20] MEDS: hydrALAZINE HCL 50 MG TAB PO SCH ×4 (08:48→22:13)
[2019-10-20 08:55] LABS: Basophils % (A) 0 %; Eosinophils # (A) 0.1 k/uL (0-0.7); Eosinophils % (A) 2 %; HCT 26.7 % (34.0-46.0); HGB 8.3 gm/dL (11.4-16.0); Hypochromasia Slight; Lymphocytes # (A) 0.7 k/uL (1.0-4.8); Lymphocytes % (A) 15 %; MCH 28.5 pg (25.0-35.0); MCHC 31.1 g/dL (31.0-37.0); MCV 91.5 fL (80.0-100.0); Mean Platelet Volume 7.8; Monocytes # (A) 0.3 k/uL (0-1.0); Monocytes % (A) 7 %; Neutrophils # (A) 3.2 k/uL (1.3-7.7); Neutrophils % (A) 72 %; Platelet Count 154 k/uL (150-450); RBC 2.92 m/uL (3.80-5.40); RDW 15.1 % (11.5-15.5); WBC 4.4 k/uL (3.8-10.6)
[2019-10-20] MEDS ORDERED: FUROSEMIDE 100 MG in SODIUM CHLORIDE 0.9% 90 ML IV SCH (09:00)
--- NOTE | 2019-10-20 09:06 | XR ---
EXAMINATION TYPE: XR chest 1V DATE OF EXAM: 10/20/2019 COMPARISON: 10/18/2019 HISTORY: Shortness of breath TECHNIQUE: Single frontal view of the chest is obtained. FINDINGS: Bilateral consolidation and pleural effusion. Heart enlarged. Coarsened interstitium. No p neumothorax. Biapical pleural thickening. Hypertrophic change and degenerative change of the spine. A rthropathy of the shoulder greater on the left. Underlying COPD suspected. IMPRESSION: 1. Bilateral pleural-parenchymal disease stable correlate for CHF otherwise consider pneumonia.
[2019-10-20 09:07] LABS: Calcium 8.6 mg/dL (8.4-10.2); Magnesium 1.7 mg/dL (1.6-2.3); Potassium 4.6 mmol/L (3.5-5.1)
--- NOTE | 2019-10-20 10:47 | P.PN ---
Subjective Patient is seen in follow-up for acute kidney injury and chronic kidney disease. Renal function stable. Oral intake is fair. No vomiting or diarrhea. Has a Hilliard catheter. Nonoliguric. Urine output 2 L overnight. Obtain Lasix drip. Vital signs are stable. General: The patient appeared well nourished and normally developed. HEENT: Head exam is unremarkable. Neck is without jugular venous distension. LUNGS: Breath sounds decreased. HEART: Rate and Rhythm are regular. ABDOMEN: Soft, nontender. EXTREMITITES: 2+ edema. Objective - Vital Signs Vital signs: Vital Signs Temp 97.5 F L 10/20/19 04:51 Pulse 76 10/20/19 08:53 Resp 20 10/20/19 04:51 BP 177/71 10/20/19 08:53 Pulse Ox 96 10/20/19 04:51 Intake & Output 10/19/19 10/20/19 10/20/19 18:59 06:59 18:59 Intake Total 1680 364.5 89.833 Output Total 900 1575 Balance 780 -1210.5 89.833 Weight 105 kg Intake: Intake, IV Titration 74.5 89.833 Amount Furosemide 100 mg In 74.5 89.833 Sodium Chloride 0.9% 90 ml @ 10 MG/HR 10 mls/hr IV .Q10H [facility] Rx#: [id number] Oral 1680 290 Output: Urine 900 1575 Uretheral (Hilliard) 1575 Other: Voiding Method Bedside Commode Indwelling Catheter Indwelling Catheter # Bowel Movements 1 1 - Labs CBC & Chem 7: 10/20/19 08:10 10/20/19 08:10 Labs: Abnormal Lab Results - Last 24 Hours (Table) 10/19/19 10/19/19 10/19/19 Range/Units 11:31 17:34 19:57 RBC (3.80-5.40) m/uL Hgb (11.4-16.0) gm/dL Hct (34.0-46.0) % Lymphocytes # (1.0-4.8) k/uL BUN (7-17) mg/dL Creatinine (0.52-1.04) mg/dL Glucose (74-99) mg/dL POC Glucose (mg/dL) 142 H 160 H 178 H (75-99) mg/dL 0810/20/19 10/20/19 Range/Units 07:19 08:10 08:10 RBC 2.92 L (3.80-5.40) m/uL Hgb 8.3 L (11.4-16.0) gm/dL Hct 26.7 L (34.0-46.0) % Lymphocytes # 0.7 L (1.0-4.8) k/uL BUN 49 H (7-17) mg/dL Creatinine 3.15 H (0.52-1.04) mg/dL Glucose 141 H (74-99) mg/dL POC Glucose (mg/dL) 128 H (75-99) mg/dL Assessment and Plan Plan: Assessment: 1. Acute kidney injury secondary to ATN secondary to infection and diuresis. Creatinine stable at 3.15 today. No evidence of hydronephrosis noted on ultrasound done in August 2019. No evidence of urinary retention. 2. Chronic kidney disease. Need to establish baseline. Creatinine was 0.9 in September 2015 but recently has been near 3. Etiology is diabetic kidney disease. Does have proteinuria. Further workup outpatient. 3. UTI maintained on antibiotics. 4. Encephalopathy likely related to UTI. No acute changes noted on brain CT. 5. Chronic kidney disease mineral bone disease maintained on PhosLo. 6. Hypertension with chronic kidney disease. Blood pressure on the higher side. Partially volume sensitive. 7. Metabolic acidosis secondary to chronic kidney disease maintained on oral bicarbonate. 8. Anemia of chronic kidney disease. Iron deficiency noted. Status post IV iron. Maintained on Aranesp. 9. Hyperkalemia secondary to acute kidney injury and losartan. Improved with medical management. 10. Volume overload. Improving with diuresis. Plan: Maintain Lasix drip at 10 mL an hour. Maintain Hilliard catheter. Strict I's and O's. Discontinued losartan on October 17 due to hyperkalemia. Not on a beta violeta due to bradycardia on admission. Increase hydralazine 200 mg 4 times a day.
[2019-10-20 11:48] LABS: Glucose,Whole Blood 175 mg/dL (75-99)
[2019-10-20] MEDS: MULTIVITAMINS, THERA 1 EACH TAB PO SCH (12:43)
--- NOTE | 2019-10-20 12:45 | P.PN ---
Subjective This is a pleasant 64-year-old female past medical history significant for coronary artery disease, diabetes mellitus, hypertension, dyslipidemia, o bstructive sleep apnea and obesity. She is seen and examined sitting up in the chair in no acute distress. She has no chest pain, dizziness or palpitations. She denies shortness of breath. She continues to have significant lower extremity edema seems mildly improved from yesterday. She is maintaining a negative fluid balance. Blood pressure 167/64 heart rate 66 afebrile maintaining oxygen saturation on nasal cannula. Laboratory data reviewed, WBC 4.4, hemoglobin 8.3, platelets 154, sodium 137, potassium 3.15 and magnesium 1.7. Repeat chest x-ray today reveals bilateral pleural parenchymal disease, stable. GENERAL: Well-appearing, well-nourished and in no acute distress. NECK: Supple without JVD or thyromegaly. LUNGS: Diminished bilaterally with no significant rales. No wheezes or rhonchi. Respiration equal and unlabored. HEART: Regular rate and rhythm without murmurs, rubs or gallops. S1 and S2 heard. EXTREMITIES: Normal range of motion, bilateral lower extremity pitting edema, mild edema of the arms and hands. No clubbing or cyanosis. Peripheral pulses intact. ASSESSMENT Altered mental status Sinus bradycardia, resolved Acute renal failure Fluid overload secondary to ISABEL Urinary tract infection Hyperkalemia Diabetes mellitus Hypertension Dyslipidemia Obstructive sleep apnea Obesity, BMI 33 PLAN Continue IV diuresis per nephrology. Repeat BMP in the morning. Nurse Practitioner note has been reviewed, I agree with a documented findings and plan of care. Patient was seen and examined. Objective - Vital Signs Vital signs: Vital Signs Temp 97.5 F L 10/20/19 04:51 Pulse 76 10/20/19 08:53 Resp 20 10/20/19 04:51 BP 177/71 10/20/19 08:53 Pulse Ox 96 10/20/19 04:51 Intake & Output 10/19/19 10/20/19 10/20/19 18:59 06:59 18:59 Intake Total 1680 364.5 89.833 Output Total 900 1575 Balance 780 -1210.5 89.833 Weight 105 kg Intake: Intake, IV Titration 74.5 89.833 Amount Furosemide 100 mg In 74.5 89.833 Sodium Chloride 0.9% 90 ml @ 10 MG/HR 10 mls/hr IV .Q10H [facility] Rx#: [id number] Oral 1680 290 Output: Urine 900 1575 Uretheral (Hilliard) 1575 Other: Voiding Method Bedside Commode Indwelling Catheter Indwelling Catheter # Bowel Movements 1 1 - Labs CBC & Chem 7: 10/20/19 08:10 10/20/19 08:10 Labs: Abnormal Lab Results - Last 24 Hours (Table) 10/19/19 10/19/19 10/19/19 Range/Units 11:31 17:34 19:57 RBC (3.80-5.40) m/uL Hgb (11.4-16.0) gm/dL Hct (34.0-46.0) % Lymphocytes # (1.0-4.8) k/uL BUN (7-17) mg/dL Creatinine (0.52-1.04) mg/dL Glucose (74-99) mg/dL POC Glucose (mg/dL) 142 H 160 H 178 H (75-99) mg/dL 10/20/19 10/20/19 10/20/19 Range/Units 07:19 08:10 08:10 RBC 2.92 L (3.80-5.40) m/uL Hgb 8.3 L (11.4-16.0) gm/dL Hct 26.7 L (34.0-46.0) % Lymphocytes # 0.7 L (1.0-4.8) k/uL BUN 49 H (7-17) mg/dL Creatinine 3.15 H (0.52-1.04) mg/dL Glucose 141 H (74-99) mg/dL POC Glucose (mg/dL) 128 H (75-99) mg/dL
[2019-10-20 16:57] LABS: Glucose,Whole Blood 140 mg/dL (75-99)
[2019-10-20 21:07] LABS: Glucose,Whole Blood 212 mg/dL (75-99)
[2019-10-20] MEDS: PIOGLITAZONE 30 MG TAB PO SCH (22:12)
[2019-10-21] MEDS: MAGNESIUM SULFATE-D5W PMX 1 GM in DEXTROSE/WATER 1 100ML.BAG IVPB SCH ×2 (01:34→03:01)
[2019-10-21] MEDS: MELATONIN 3 MG TABLET PO PRN (01:39)
[2019-10-21] MEDS: ACETAMINOPHEN TAB 325 MG TAB PO PRN ×2 (06:03→14:58)
[2019-10-21 07:41] LABS: Basophils % (A) 1 %; Eosinophils # (A) 0.1 k/uL (0-0.7); Eosinophils % (A) 2 %; HGB 8.2 gm/dL (11.4-16.0); Lymphocytes # (A) 0.4 k/uL (1.0-4.8); Lymphocytes % (A) 8 %; MCH 28.7 pg (25.0-35.0); MCHC 31.7 g/dL (31.0-37.0); MCV 90.5 fL (80.0-100.0); Mean Platelet Volume 8.2; Monocytes # (A) 0.4 k/uL (0-1.0); Monocytes % (A) 8 %; Neutrophils # (A) 4.3 k/uL (1.3-7.7); Neutrophils % (A) 79 %; Platelet Count 140 k/uL (150-450); RBC 2.87 m/uL (3.80-5.40); WBC 5.5 k/uL (3.8-10.6)
[2019-10-21 07:52] LABS: Calcium 8.6 mg/dL (8.4-10.2); Magnesium 2.2 mg/dL (1.6-2.3); Potassium 4.9 mmol/L (3.5-5.1)
[2019-10-21 08:01] LABS: Glucose,Whole Blood 217 mg/dL (75-99)
[2019-10-21] MEDS: CALCIUM ACETATE 667 MG TAB PO SCH ×3 (08:09→17:05)
[2019-10-21] MEDS: INSULIN ASPART (NovoLOG) 100 UNIT/ML VIAL SQ SCH ×4 (08:09→20:34)
[2019-10-21] MEDS: PANTOPRAZOLE 40 MG TABLET PO SCH (08:10)
[2019-10-21] MEDS: ENOXAPARIN 30 MG/0.3 ML SYRINGE SQ SCH (08:10)
[2019-10-21] MEDS: hydrALAZINE HCL 50 MG TAB PO SCH ×4 (08:10→20:34)
[2019-10-21] MEDS: AZITHROMYCIN 500 MG TAB PO SCH (08:10)
[2019-10-21] MEDS: amLODIPine 10 MG TAB PO SCH (08:10)
[2019-10-21] MEDS: ASPIRIN 81 MG PO SCH (08:10)
[2019-10-21] MEDS: SODIUM BICARBONATE TAB 650 MG TAB PO SCH ×2 (08:11→20:34)
[2019-10-21] MEDS: MAGNESIUM OXIDE 400 MG TAB PO SCH ×3 (08:11→20:34)
[2019-10-21] MEDS: FUROSEMIDE 100 MG in SODIUM CHLORIDE 0.9% 90 ML IV SCH ×2 (11:00→20:44)
--- NOTE | 2019-10-21 12:18 | P.PN ---
Subjective Progress Note Date: 10/21/19 This a pleasant 64-year-old female patient with a past medical history significant for coronary artery disease, diabetes mellitus, hypertension, dyslipidemia, obstructive sleep apnea and obesity. She is seen today in follow- up sitting up in bed in no acute distress. Continues to complain of some shortness of breath. Continues to have significant edema that she feels is mildly improved from yesterday. Document away in the computer does show a weight gain over patient has had a negative fluid balance. Renal function shows a BUN of 47 creatinine 3.10. She is being followed by nephrology and is cur rently on a Lasix drip at 10 mg an hour. Objective - Vital Signs Vital signs: Vital Signs Temp 98.6 F 10/21/19 07:56 Pulse 89 10/21/19 07:56 Resp 12 10/21/19 07:56 BP 152/69 10/21/19 07:56 Pulse Ox 92 L 10/21/19 07:56 Intake & Output 10/20/19 10/21/19 10/21/19 18:59 06:59 18:59 Intake Total 89.833 390 100 Output Total 1700 1550 Balance -1610.167 -1160 100 Weight 105 kg 111.5 kg Intake: Intake, IV Titration 89.833 100 100 Amount Furosemide 100 mg In 89.833 100 100 Sodium Chloride 0.9% 90 ml @ 10 MG/HR 10 mls/hr IV .Q10H [facility] Rx#: [id number] Oral 290 Output: Urine 1700 1550 Uretheral (Hilliard) 1700 1550 Other: Voiding Method Indwelling Catheter Indwelling Catheter Indwelling Catheter - Exam PHYSICAL EXAMINATION: HEENT: [Head is atraumatic, normocephalic. Pupils equal, round. Neck is supple. There is no elevated jugular venous pressure. HEART EXAMINATION: [Heart sounds regular, S1 and S2 normal. No murmur or gallop heard. CHEST EXAMINATION:[ Lungs reveal diminished air entry bilaterally. No chest wall tenderness is noted on palpation or with deep breathing. ABDOMEN: Soft, nontender. Bowel sounds are heard. No organomegaly noted. EXTREMITIES: 2+ peripheral pulses with evidence of bilateral pitting lower extremity edema and mild edema of the upper extremitiesand no calf tenderness noted. NEUROLOGIC [patient is awake, alert and oriented x3. . - Labs CBC & Chem 7: 10/21/19 07:04 10/21/19 07:04 Labs: Abnormal Lab Results - Last 24 Hours (Table) 10/20/19 10/20/19 10/21/19 Range/Units 16:54 20:57 07:04 RBC (3.80-5.40) m/uL Hgb (11.4-16.0) gm/dL Hct (34.0-46.0) % Plt Count (150-450) k/uL Lymphocytes # (1.0-4.8) k/uL Sodium 135 L (137-145) mmol/L BUN 47 H (7-17) mg/dL Creatinine 3.10 H (0.52-1.04) mg/dL Glucose 170 H (74-99) mg/dL POC Glucose (mg/dL) 140 H 212 H (75-99) mg/dL 10/21/19 10/21/19 Range/Units 07:04 08:00 RBC 2.87 L (3.80-5.40) m/uL Hgb 8.2 L (11.4-16.0) gm/dL Hct 26.0 L (34.0-46.0) % Plt Count 140 L (150-450) k/uL Lymphocytes # 0.4 L (1.0-4.8) k/uL Sodium (137-145) mmol/L BUN (7-17) mg/dL Creatinine (0.52-1.04) mg/dL Glucose (74-99) mg/dL POC Glucose (mg/dL) 217 H (75-99) mg/dL Assessment and Plan Assessment: #1 altered mental status #2 sinus bradycardia, resolved #3 acute kidney failure #4 fluid overload secondary to ISABEL #5 urinary tract infection #6 hyperkalemia #7 diabetes mellitus #8 hypertension #9 dyslipidemia #10 AROLDO #11 obesity Plan: from cardiology's perspective continue diuretics per nephrology. Continue to follow daily weights, intake and outputs, renal function and electrolytes. Will continue to follow the patient from further recommendations accordingly. LEGAL COLLECTOR note has been reviewed, I agree with a documented findings and plan of care. Patient was seen and examined.
[2019-10-21] MEDS: MULTIVITAMINS, THERA 1 EACH TAB PO SCH (12:20)
[2019-10-21 12:25] LABS: Glucose,Whole Blood 179 mg/dL (75-99)
--- NOTE | 2019-10-21 14:42 | P.PN ---
Subjective Progress Note Date: 10/21/19 Follow-up for acute kidney injury. Renal function stable. Still has fluid and short of breath. Urine output of 3.2 L within net negative of 2.5 L. Objective - Vital Signs Vital signs: Vital Signs Temp 99.4 F 10/21/19 11:56 Pulse 72 10/21/19 11:56 Resp 16 10/21/19 11:56 BP 141/66 10/21/19 11:56 Pulse Ox 94 L 10/21/19 11:56 Intake & Output 10/20/19 10/21/19 10/21/19 18:59 06:59 18:59 Intake Total 89.833 390 100 Output Total 1700 1550 Balance -1610.167 -1160 100 Weight 105 kg 111.5 kg Intake: Intake, IV Titration 89.833 100 100 Amount Furosemide 100 mg In 89.833 100 100 Sodium Chloride 0.9% 90 ml @ 10 MG/HR 10 mls/hr IV .Q10H [facility] Rx#: [id number] Oral 290 Output: Urine 1700 1550 Uretheral (Hilliard) 1700 1550 Other: Voiding Method Indwelling Catheter Indwelling Catheter Indwelling Catheter - Exam No acute distress S1-S2 heard Decreased breath sounds Abdomen distended Edema - Labs CBC & Chem 7: 10/21/19 07:04 10/21/19 07:04 Labs: Abnormal Lab Results - Last 24 Hours (Table) 10/20/19 10/20/19 10/21/19 Range/Units 16:54 20:57 07:04 RBC (3.80-5.40) m/uL Hgb (11.4-16.0) gm/dL Hct (34.0-46.0) % Plt Count (150-450) k/uL Lymphocytes # (1.0-4.8) k/uL Sodium 135 L (137-145) mmol/L BUN 47 H (7-17) mg/dL Creatinine 3.10 H (0.52-1.04) mg/dL Glucose 170 H (74-99) mg/dL POC Glucose (mg/dL) 140 H 212 H (75-99) mg/dL 10/21/19 10/21/19 10/21/19 Range/Units 07:04 08:00 12:23 RBC 2.87 L (3.80-5.40) m/uL Hgb 8.2 L (11.4-16.0) gm/dL Hct 26.0 L (34.0-46.0) % Plt Count 140 L (150-450) k/uL Lymphocytes # 0.4 L (1.0-4.8) k/uL Sodium (137-145) mmol/L BUN (7-17) mg/dL Creatinine (0.52-1.04) mg/dL Glucose (74-99) mg/dL POC Glucose (mg/dL) 217 H 179 H (75-99) mg/dL Assessment and Plan Assessment: #1 nonoliguric acute kidney injury secondary to ischemic ATN. Creatinine stable around baseline. #2 chronic kidney disease stage III creatinine, baseline creatinine around 3.0 MG per DL. #3 volume overload #4 metabolic acidosis #5 anemia with chronic kidney disease #6 hypertension with chronic kidney disease Plan: #1 continue with Lasix drip at 10 mg an hour. #2 add metolazone for extra diuresis #3 renal function stable continue to monitor. #4 discussed with the family for the need of dialysis if renal function and volume status does not improve. #5 avoid nephrotoxic agents and hypotensive episodes
[2019-10-21] MEDS: metOLazone 2.5 MG TAB PO SCH (14:58)
[2019-10-21 17:23] LABS: Glucose,Whole Blood 196 mg/dL (75-99)
[2019-10-21 20:07] LABS: Glucose,Whole Blood 207 mg/dL (75-99)
[2019-10-21] MEDS: PIOGLITAZONE 30 MG TAB PO SCH (20:34)
[2019-10-22] MEDS: FUROSEMIDE 100 MG in SODIUM CHLORIDE 0.9% 90 ML IV SCH ×2 (06:24→16:50)
[2019-10-22 07:27] LABS: Glucose,Whole Blood 143 mg/dL (75-99)
[2019-10-22] MEDS: CALCIUM ACETATE 667 MG TAB PO SCH ×3 (07:36→18:18)
[2019-10-22] MEDS: INSULIN ASPART (NovoLOG) 100 UNIT/ML VIAL SQ SCH ×4 (07:36→21:29)
[2019-10-22] MEDS: PANTOPRAZOLE 40 MG TABLET PO SCH (07:36)
[2019-10-22] MEDS: amLODIPine 10 MG TAB PO SCH (07:37)
[2019-10-22] MEDS: AZITHROMYCIN 500 MG TAB PO SCH (07:37)
[2019-10-22] MEDS: ASPIRIN 81 MG PO SCH (07:37)
[2019-10-22] MEDS: SODIUM BICARBONATE TAB 650 MG TAB PO SCH ×2 (07:37→21:29)
[2019-10-22] MEDS: MAGNESIUM OXIDE 400 MG TAB PO SCH ×3 (07:37→21:29)
[2019-10-22] MEDS: hydrALAZINE HCL 50 MG TAB PO SCH ×4 (08:45→21:29)
[2019-10-22] MEDS: ENOXAPARIN 30 MG/0.3 ML SYRINGE SQ SCH (08:45)
[2019-10-22] MEDS: metOLazone 2.5 MG TAB PO SCH (08:46)
--- NOTE | 2019-10-22 11:02 | P.PN ---
Subjective Progress Note Date: 10/22/19 This a pleasant 64-year-old female patient with a past medical history significant for coronary artery disease, diabetes mellitus, hypertension, dyslipidemia, obstructive sleep apnea and obesity. She is seen today in follow- up sitting up in bed in no acute distress. Continues to complain of some shortness of breath. Continues to have significant edema that she feels is mildly improved from yesterday. Document away in the computer does show a weight gain over patient has had a negative fluid balance. Renal function shows a BUN of 47 creatinine 3.10. She is being followed by nephrology and is cur rently on a Lasix drip at 10 mg an hour. 10/22/2019 The patient was seen and examined this morning sitting up in a chair side of her bed. She continues to complain of some shortness of breath and significant edema. The documented weight again in the computer shows a weight gain however she has had a negative fluid balance. No lab results available for today. She continues on a Lasix drip at 10 mg an hour. She was started on metolazone 2.5 mg by mouth daily yesterday by nephrology. Objective - Vital Signs Vital signs: Vital Signs Temp 98.7 F 10/22/19 05:00 Pulse 83 10/22/19 05:00 Resp 18 10/22/19 05:00 BP 163/68 10/22/19 05:00 Pulse Ox 92 L 10/22/19 05:00 Intake & Output 10/21/19 10/22/19 10/22/19 18:59 06:59 18:59 Intake Total 100 194.000 Output Total 650 1000 Balance -550 -806.000 Weight 113 kg Intake: Intake, IV Titration 100 194.000 Amount Furosemide 100 mg In 100 194.000 Sodium Chloride 0.9% 90 ml @ 10 MG/HR 10 mls/hr IV .Q10H [facility] Rx#: [id number] Output: Urine 650 1000 Uretheral (Hilliard) 1000 Other: Voiding Method Indwelling Catheter Indwelling Catheter Indwelling Catheter - Exam PHYSICAL EXAMINATION: HEENT: [Head is atraumatic, normocephalic. Pupils equal, round. Neck is supple. There is no elevated jugular venous pressure. HEART EXAMINATION: Heart sounds regular, S1 and S2 normal. No murmur or gallop heard. CHEST EXAMINATION: Lungs reveal diminished air entry bilaterally. No chest wall tenderness is noted on palpation or with deep breathing. ABDOMEN: Soft, nontender. Bowel sounds are heard. No organomegaly noted. EXTREMITIES: 2+ peripheral pulses with evidence of bilateral pitting lower extremity edema and mild edema of the upper extremities and no calf tenderness noted. NEUROLOGIC patient is awake, alert and oriented x3. . - Labs CBC & Chem 7: 10/21/19 07:04 10/21/19 07:04 Labs: Abnormal Lab Results - Last 24 Hours (Table) 10/21/19 10/21/19 10/21/19 Range/Units 12:23 17:22 20:06 POC Glucose (mg/dL) 179 H 196 H 207 H (75-99) mg/dL 10/22/19 Range/Units 07:02 POC Glucose (mg/dL) 143 H (75-99) mg/dL Assessment and Plan Assessment: #1 altered mental status #2 sinus bradycardia, resolved #3 acute kidney failure #4 fluid overload secondary to ISABEL #5 urinary tract infection #6 hyperkalemia #7 diabetes mellitus #8 hypertension #9 dyslipidemia #10 AROLDO #11 obesity Plan: from cardiology's perspective continue diuretics per nephrology. Continue to follow daily weights, intake and outputs, renal function and electrolytes. Will continue to follow the patient from further recommendations accordingly. LOG CHAIN WORKER note has been reviewed, I agree with a documented findings and plan of care. Patient was seen and examined.
[2019-10-22 11:37] LABS: Calcium 8.4 mg/dL (8.4-10.2)
[2019-10-22 11:44] LABS: Potassium 4.9 mmol/L (3.5-5.1)
[2019-10-22 11:50] LABS: Glucose,Whole Blood 141 mg/dL (75-99)
--- NOTE | 2019-10-22 12:06 | P.PN ---
Subjective Progress Note Date: 10/20/19 Principal diagnosis: Acute UTI from cystitis Bradycardia This is a [address] Kristy Ortega. Patient was just at [facility] from October 08. Admitted there with a creatinine of 3.6. Prior to discharge a day ago creatinine was down to 3.2. Seen by Dr. Bocanegra. Renal ultrasound did not show any major abnormality. Corticomedullary differentiation was maintained. Patient came home and felt tired lethargic. Rundown. Appetite has been okay. Perry cold. She decided to come back in again. Patient has known diabetes. Perry to have diabetic nephropathy. Chronic stable medical conditions include diabetes, GERD, hypertension, hyperlipidemia, obstructive sleep apnea. Patient last labs here on September 04 were 2.93. Also found to be bradycardic. Patient does use a walker. Admitted with metabolic encephalopathy. Ambien and Xanax was discontinued. Patient also found to be hypothermic. Suma hugger given. Given IV fluids. 10/14-more awake today.. Answers questions better. Suma hugger in place. The 25% of breakfast and 75% of lunch. Laying in bed. Tired. 10/16/2019 Patient is currently sitting in the chair. Awake alert and oriented without seems to be confused. Blood pressure still elevated patient was started on Catapres patch and metoprolol has been discontinued due to bradycardia. Heart rate went up to 66 now. Laboratory data showed BUN 44 and creatinine 2.94 Potassium 5.4 bicarb is 21 magnesium 1.7 Patient had chest x-ray this morning showed bibasilar infiltrate and small effusion correlate for interstitial pneumonitis versus congestion. Underlying pneumonia in the differential diagnosis. Patient was given a dose of IV Lasix. VQ scan showed intermediate probability for pulmonary embolism. CT chest could not be done due to elevated creatinine level. Patient is currently requiring oxygen at 4 L via nasal cannula. Patient is not on home oxygen. No complaints of chest pain. No nausea vomiting or abdominal pain or diarrhea. No headache or dizziness. 10/17/2019 Patient is currently sitting in a chair seems fairly confused. Awake alert oriented 3. Still having shortness of breath and requiring oxygen at 4 L when as a cannula. Due to pleural effusion and vascular congestion patient was started on IV Lasix 40 mg twice daily. Patient is being continued on antibiotics for possible pneumonia. Patient had VQ scan showed moderate probability for PE and was started on therapeutic dose of Lovenox. Pulmonary was consulted for further evaluation and development of long-term anticoagulation. blood pressure is better controlled today. Heart rate improved to 70s. Nephrology and cardiology is on board. Pulmonary was consulted. 10/17/2017 Patient is currently sitting in the chair. Drowsy and lethargic. Otherwise no acute distress. Currently on oxygen via nasal cannula at 4 L. Patient is being continued on IV Lasix. Also on antibiotics in the form of azithromycin ceftriaxone for possible pneumonia and urinary tract infection. Laboratory showed sodium 140, potassium 6.1 and BUN 54 and creatinine 3.26. Magnesium 1.7 Patient was given dextrose and IV insulin for hyperkalemia. Follow-up potassium level. Pulmonary and nephrology is following. Chest x-ray showed increased bilateral airspace opacities and small bilateral pleural effusions versus 10/16/2019 10/19/2019 Patient is currently sitting in a chair. Slightly lethargic but awake alert oriented x3. Still having significant bilateral lower extremity edema and is being continued on Lasix. Change to Lasix drip now. No complaints of shortness of breath or chest pain. No fever no chills. Currently on antibiotics in the form of ceftriaxone and azithromycin. Denies any cough or sputum production. Laboratory showed WBC 5.3, hemoglobin 9.0 and platelets 155 Sodium 140, potassium 4.6, chloride 108, BUN 15 creatinine 3.15 Magnesium 1.6 Pulmonary nephrology is following. 10/19/2016 Patient is currently sitting in a chair. She is drowsy but awake alert oriented 3. Slowly participating in physical therapy. Patient was started on Lasix drip. Breathing status is improving. Pulmonary is following. Nephrology is on board as well. Review of systems: Was done for constitutional, cardiovascular, GI, pulmonary. relevant finding as above Objective - Vital Signs Vital signs: Vital Signs Temp 98.6 F 10/20/19 12:32 Pulse 66 10/20/19 12:32 Resp 19 10/20/19 12:32 BP 174/76 10/20/19 18:12 Pulse Ox 95 10/20/19 12:32 Intake & Output 10/20/19 10/20/19 10/21/19 06:59 18:59 06:59 Intake Total 364.5 89.833 Output Total 1575 Balance -1210.5 89.833 Weight 105 kg 105 kg Intake: Intake, IV Titration 74.5 89.833 Amount Furosemide 100 mg In 74.5 89.833 Sodium Chloride 0.9% 90 ml @ 10 MG/HR 10 mls/hr IV .Q10H [facility] Rx#: [id number] Oral 290 Output: Urine 1575 Uretheral (Hilliard) 1575 Other: Voiding Method Indwelling Catheter Indwelling Catheter # Bowel Movements 1 - Exam PHYSICAL EXAMINATION: Patient is lying in the bed comfortably, no acute distress, awake alert and oriented. Mild confusion.. HEENT: Normocephalic. Neck is supple. Pupils reactive. Nostrils clear. Oral c avity is moist. Ears reveal no drainage. Neck reveals no JVD, carotid bruits, or thyromegaly. CHEST EXAMINATION: Trachea is central. Symmetrical expansion. Bibasilar diminished air entry and no rhonchi or wheezing. Lung greer clear to auscultation and percussion. CARDIAC: Normal S1, S2 with no gallops. No murmurs ABDOMEN: Soft. Bowel sounds normal. No organomegaly. No abdominal bruits. Extremities: 3+ bilateral edema. No clubbing or cyanosis Neurologically awake, alert, oriented x3 with well-coordinated movements. No focal deficits noted Skin: No rash or skin lesions. Psychiatric: Coperative. Nonsuicidal Musculoskeletal: No joint swelling or deformity. Normal range of motion. - Labs CBC & Chem 7: 10/21/19 07:04 10/22/19 11:03 Labs: Abnormal Lab Results - Last 24 Hours (Table) 10/20/19 10/20/19 10/20/19 Range/Units 07:19 08:10 08:10 RBC 2.92 L (3.80-5.40) m/uL Hgb 8.3 L (11.4-16.0) gm/dL Hct 26.7 L (34.0-46.0) % Lymphocytes # 0.7 L (1.0-4.8) k/uL BUN 49 H (7-17) mg/dL Creatinine 3.15 H (0.52-1.04) mg/dL Glucose 141 H (74-99) mg/dL POC Glucose (mg/dL) 128 H (75-99) mg/dL 10/20/19 10/20/19 10/20/19 Range/Units 11:28 16:54 20:57 RBC (3.80-5.40) m/uL Hgb (11.4-16.0) gm/dL Hct (34.0-46.0) % Lymphocytes # (1.0-4.8) k/uL BUN (7-17) mg/dL Creatinine (0.52-1.04) mg/dL Glucose (74-99) mg/dL POC Glucose (mg/dL) 175 H 140 H 212 H (75-99) mg/dL Assessment and Plan Assessment: -Acute hypoxic respiratory failure secondary to fluid overload and acute on chronic CHF with diastolic dysfunction. Patient was started on IV Lasix. -Significant bradycardia patient was on Toprol-XL 200 mg. on hold now. Heart rate improved now. -Hypertensive urgency. BP controlled now. -Acute kidney injury secondary to ATN secondary to infection. . -Acute UTI from cystitis -Intermediate probability for PE and VQ scan. CTA could not be done due to creatinine level. -Obesity BMI 32.5 -Depression otherwise specified -Metabolic encephalopathy could be from medications. Patient of the hefty dose of Ambien. Cutback on the same.-Slow to respond -GERD -Essential hypertension -Diabetes mellitus type 2 -Diabetic nephropathy, CK D stage IV -Metabolic acidosis from kidney failure -Hypothermic-metabolic on Suma hugger Plan: Continue with IV Lasix. Patient was started on ceftriaxone and azithromycin. Hold Omnicef. Was started on Lovenox 80 mg daily for possible pulmonary embolism. Bilateral lower extremity duplex scan negative DVT. chnaged to lovenox 40mg Sq now. Pulmonary is following. Continue to titrate blood pressure medications. Follow electrolytes, Accu-Cheks are being followed. On sodium bicarbonate. IV fluids. Repeat labs in the morning. Labs the patient sit up in a chair. PTOT. Time with Patient: Greater than 30
--- NOTE | 2019-10-22 12:11 | P.PN ---
Subjective Progress Note Date: 10/21/19 Principal diagnosis: Acute UTI from cystitis Bradycardia This is a [address] Kristy Ortega. Patient was just at [facility] from October 08. Admitted there with a creatinine of 3.6. Prior to discharge a day ago creatinine was down to 3.2. Seen by Dr. Bocanegra. Renal ultrasound did not show any major abnormality. Corticomedullary differentiation was maintained. Patient came home and felt tired lethargic. Rundown. Appetite has been okay. Venus cold. She decided to come back in again. Patient has known diabetes. Venus to have diabetic nephropathy. Chronic stable medical conditions include diabetes, GERD, hypertension, hyperlipidemia, obstructive sleep apnea. Patient last labs here on September 04 were 2.93. Also found to be bradycardic. Patient does use a walker. Admitted with metabolic encephalopathy. Ambien and Xanax was discontinued. Patient also found to be hypothermic. Suma hugger given. Given IV fluids. 10/14-more awake today.. Answers questions better. Suma hugger in place. The 25% of breakfast and 75% of lunch. Laying in bed. Tired. 10/16/2019 Patient is currently sitting in the chair. Awake alert and oriented without seems to be confused. Blood pressure still elevated patient was started on Catapres patch and metoprolol has been discontinued due to bradycardia. Heart rate went up to 66 now. Laboratory data showed BUN 44 and creatinine 2.94 Potassium 5.4 bicarb is 21 magnesium 1.7 Patient had chest x-ray this morning showed bibasilar infiltrate and small effusion correlate for interstitial pneumonitis versus congestion. Underlying pneumonia in the differential diagnosis. Patient was given a dose of IV Lasix. VQ scan showed intermediate probability for pulmonary embolism. CT chest could not be done due to elevated creatinine level. Patient is currently requiring oxygen at 4 L via nasal cannula. Patient is not on home oxygen. No complaints of chest pain. No nausea vomiting or abdominal pain or diarrhea. No headache or dizziness. 10/17/2019 Patient is currently sitting in a chair seems fairly confused. Awake alert oriented 3. Still having shortness of breath and requiring oxygen at 4 L when as a cannula. Due to pleural effusion and vascular congestion patient was started on IV Lasix 40 mg twice daily. Patient is being continued on antibiotics for possible pneumonia. Patient had VQ scan showed moderate probability for PE and was started on therapeutic dose of Lovenox. Pulmonary was consulted for further evaluation and development of long-term anticoagulation. blood pressure is better controlled today. Heart rate improved to 70s. Nephrology and cardiology is on board. Pulmonary was consulted. 10/17/2017 Patient is currently sitting in the chair. Drowsy and lethargic. Otherwise no acute distress. Currently on oxygen via nasal cannula at 4 L. Patient is being continued on IV Lasix. Also on antibiotics in the form of azithromycin ceftriaxone for possible pneumonia and urinary tract infection. Laboratory showed sodium 140, potassium 6.1 and BUN 54 and creatinine 3.26. Magnesium 1.7 Patient was given dextrose and IV insulin for hyperkalemia. Follow-up potassium level. Pulmonary and nephrology is following. Chest x-ray showed increased bilateral airspace opacities and small bilateral pleural effusions versus 10/16/2019 10/19/2019 Patient is currently sitting in a chair. Slightly lethargic but awake alert oriented x3. Still having significant bilateral lower extremity edema and is being continued on Lasix. Change to Lasix drip now. No complaints of shortness of breath or chest pain. No fever no chills. Currently on antibiotics in the form of ceftriaxone and azithromycin. Denies any cough or sputum production. Laboratory showed WBC 5.3, hemoglobin 9.0 and platelets 155 Sodium 140, potassium 4.6, chloride 108, BUN 15 creatinine 3.15 Magnesium 1.6 Pulmonary nephrology is following. 10/20/19 Patient is currently sitting in a chair. She is drowsy but awake alert oriented 3. Slowly participating in physical therapy. Patient was started on Lasix drip. Breathing status is improving. Pulmonary is following. Nephrology is on board as well. 10/21/2019 Patient is currently lying in the bed comfortably. Shortness of breath is better. Patient is being continued on Lasix drip and also metolazone was added. Hemoglobin is 8.2 and creatinine level was 3.1 today. Patient has been afebrile. Currently being continued on hydralazine, amlodipine and Lasix for blood pressure control.. Beta blockers on hold due to bradycardia on admission. Review of systems: Was done for constitutional, cardiovascular, GI, pulmonary. relevant finding as above Objective - Vital Signs Vital signs: Vital Signs Temp 99.7 F H 10/21/19 20:02 Pulse 85 10/21/19 20:02 Resp 16 10/21/19 20:02 BP 160/72 10/21/19 20:02 Pulse Ox 93 L 10/21/19 20:02 Intake & Output 10/21/19 10/21/19 10/22/19 06:59 18:59 06:59 Intake Total 390 100 Output Total 1550 650 Balance -1160 -550 Weight 111.5 kg Intake: Intake, IV Titration 100 100 Amount Furosemide 100 mg In 100 100 Sodium Chloride 0.9% 90 ml @ 10 MG/HR 10 mls/hr IV .Q10H [facility] Rx#: [id number] Oral 290 Output: Urine 1550 650 Uretheral (Hilliard) 1550 Other: Voiding Method Indwelling Catheter Indwelling Catheter - Exam PHYSICAL EXAMINATION: Patient is lying in the bed comfortably, no acute distress, awake alert and oriented. Mild confusion.. HEENT: Normocephalic. Neck is supple. Pupils reactive. Nostrils clear. Oral cavity is moist. Ears reveal no drainage. Neck reveals no JVD, carotid bruits, or thyromegaly. CHEST EXAMINATION: Trachea is central. Symmetrical expansion. Bibasilar diminished air entry and no rhonchi or wheezing. Lung greer clear to aus cultation and percussion. CARDIAC: Normal S1, S2 with no gallops. No murmurs ABDOMEN: Soft. Bowel sounds normal. No organomegaly. No abdominal bruits. Extremities: 3+ bilateral edema. No clubbing or cyanosis Neurologically awake, alert, oriented x3 with well-coordinated movements. No focal deficits noted Skin: No rash or skin lesions. Psychiatric: Coperative. Nonsuicidal Musculoskeletal: No joint swelling or deformity. Normal range of motion. - Labs CBC & Chem 7: 10/21/19 07:04 10/22/19 11:03 Labs: Abnormal Lab Results - Last 24 Hours (Table) 10/20/19 10/21/19 10/21/19 Range/Units 20:57 07:04 07:04 RBC 2.87 L (3.80-5.40) m/uL Hgb 8.2 L (11.4-16.0) gm/dL Hct 26.0 L (34.0-46.0) % Plt Count 140 L (150-450) k/uL Lymphocytes # 0.4 L (1.0-4.8) k/uL Sodium 135 L (137-145) mmol/L BUN 47 H (7-17) mg/dL Creatinine 3.10 H (0.52-1.04) mg/dL Glucose 170 H (74-99) mg/dL POC Glucose (mg/dL) 212 H (75-99) mg/dL 10/21/19 10/21/19 10/21/19 Range/Units 08:00 12:23 17:22 RBC (3.80-5.40) m/uL Hgb (11.4-16.0) gm/dL Hct (34.0-46.0) % Plt Count (150-450) k/uL Lymphocytes # (1.0-4.8) k/uL Sodium (137-145) mmol/L BUN (7-17) mg/dL Creatinine (0.52-1.04) mg/dL Glucose (74-99) mg/dL POC Glucose (mg/dL) 217 H 179 H 196 H (75-99) mg/dL 10/21/19 Range/Units 20:06 RBC (3.80-5.40) m/uL Hgb (11.4-16.0) gm/dL Hct (34.0-46.0) % Plt Count (150-450) k/uL Lymphocytes # (1.0-4.8) k/uL Sodium (137-145) mmol/L BUN (7-17) mg/dL Creatinine (0.52-1.04) mg/dL Glucose (74-99) mg/dL POC Glucose (mg/dL) 207 H (75-99) mg/dL Assessment and Plan Assessment: -Acute hypoxic respiratory failure secondary to fluid overload and acute on chronic CHF with diastolic dysfunction. Patient was started on Lasix drip.. -Significant bradycardia patient was on Toprol-XL 200 mg. on hold now. Heart rate improved now. -Hypertensive urgency. BP controlled now. -Acute kidney injury secondary to ATN secondary to infection. . -Acute UTI from cystitis -Intermediate probability for PE and VQ scan. CTA could not be done due to creatinine level. -Obesity BMI 32.5 -Depression otherwise specified -Metabolic encephalopathy could be from medications. Patient of the hefty dose of Ambien. Cutback on the same.-Slow to respond -GERD -Essential hypertension -Diabetes mellitus type 2 -Diabetic nephropathy, CK D stage IV -Metabolic acidosis from kidney failure -Hypothermic-metabolic on Suma hugger Plan: Continue with Lasix drip. Patient was started on ceftriaxone and azithromycin. Hold Omnicef. Was started on Lovenox 80 mg daily for possible pulmonary embolism. Bilateral lower extremity duplex scan negative DVT. chnaged to lovenox 40mg Sq now. Pulmonary is following. Continue to titrate blood pressure medications. Follow electrolytes, Accu-Cheks are being followed. On sodium bicarbonate. Repeat labs in the morning. Labs the patient sit up in a chair. PTOT. Time with Patient: Greater than 30
[2019-10-22] MEDS: MULTIVITAMINS, THERA 1 EACH TAB PO SCH (12:13)
--- NOTE | 2019-10-22 12:13 | P.PN ---
Subjective Progress Note Date: 10/22/19 Follow-up for acute kidney injury. Slight creep in creatinine today. Urine output dropped from 0025-6484 ML's in the last 24 hours, but improved to 1 L since morning today. Objective - Vital Signs Vital signs: Vital Signs Temp 98.3 F 10/22/19 12:08 Pulse 72 10/22/19 12:08 Resp 19 10/22/19 12:08 BP 152/69 10/22/19 12:08 Pulse Ox 93 L 10/22/19 12:08 Intake & Output 10/21/19 10/22/19 10/22/19 18:59 06:59 18:59 Intake Total 100 194.000 Output Total 650 1000 1000 Balance -550 -806.000 -1000 Weight 113 kg Intake: Intake, IV Titration 100 194.000 Amount Furosemide 100 mg In 100 194.000 Sodium Chloride 0.9% 90 ml @ 10 MG/HR 10 mls/hr IV .Q10H [facility] Rx#: [id number] Output: Urine 650 1000 1000 Uretheral (Hilliard) 1000 1000 Other: Voiding Method Indwelling Catheter Indwelling Catheter Indwelling Catheter - Exam No acute distress S1-S2 heard Decreased breath sounds Abdomen distended Edema - Labs CBC & Chem 7: 10/21/19 07:04 10/22/19 11:03 Labs: Abnormal Lab Results - Last 24 Hours (Table) 10/21/19 10/21/19 10/21/19 Range/Units 12:23 17:22 20:06 Sodium (137-145) mmol/L BUN (7-17) mg/dL Creatinine (0.52-1.04) mg/dL Glucose (74-99) mg/dL POC Glucose (mg/dL) 179 H 196 H 207 H (75-99) mg/dL 10/22/19 10/22/19 10/22/19 Range/Units 07:02 11:03 11:46 Sodium 134 L (137-145) mmol/L BUN 54 H (7-17) mg/dL Creatinine 3.54 H (0.52-1.04) mg/dL Glucose 151 H (74-99) mg/dL POC Glucose (mg/dL) 143 H 141 H (75-99) mg/dL Assessment and Plan Assessment: #1 nonoliguric acute kidney injury secondary to ischemic ATN. Creatinine stable around baseline. #2 chronic kidney disease stage III creatinine, baseline creatinine around 3.0 MG per DL. #3 volume overload #4 metabolic acidosis #5 anemia with chronic kidney disease #6 hypertension with chronic kidney disease Plan: #1 continue with Lasix drip at 10 mg an hour and mentalis on for now. #2 she still has volume needs dialysis. #3 discussed with the family for the need of dialysis if renal function and volume status does not improve with diuretics. #4 avoid nephrotoxic agents and hypotensive episodes
[2019-10-22] MEDS ORDERED: MD COMMUNICATION TO PHARMACY 1 EACH MISC PO PRN (15:14)
[2019-10-22] MEDS: ACETAMINOPHEN TAB 325 MG TAB PO PRN (16:51)
[2019-10-22 17:28] LABS: Glucose,Whole Blood 170 mg/dL (75-99)
[2019-10-22 21:03] LABS: Glucose,Whole Blood 212 mg/dL (75-99)
[2019-10-22] MEDS: PIOGLITAZONE 30 MG TAB PO SCH (21:29)
[2019-10-22] MEDS: MELATONIN 3 MG TABLET PO PRN (21:29)
--- NOTE | 2019-10-23 00:30 | P.PN ---
Subjective Progress Note Date: 10/22/19 Principal diagnosis: Acute UTI from cystitis Bradycardia This is a [address] Kristy Ortega. Patient was just at [facility] from October 08. Admitted there with a creatinine of 3.6. Prior to discharge a day ago creatinine was down to 3.2. Seen by Dr. Bocanegra. Renal ultrasound did not show any major abnormality. Corticomedullary differentiation was maintained. Patient came home and felt tired lethargic. Rundown. Appetite has been okay. [place] cold. She decided to come back in again. Patient has known diabetes. [place] to have diabetic nephropathy. Chronic stable medical conditions include diabetes, GERD, hypertension, hyperlipidemia, obstructive sleep apnea. Patient last labs here on September 04 were 2.93. Also found to be bradycardic. Patient does use a walker. Admitted with metabolic encephalopathy. Ambien and Xanax was discontinued. Patient also found to be hypothermic. Suma hugger given. Given IV fluids. 10/14-more awake today.. Answers questions better. Suma hugger in place. The 25% of breakfast and 75% of lunch. Laying in bed. Tired. 10/16/2019 Patient is currently sitting in the chair. Awake alert and oriented without seems to be confused. Blood pressure still elevated patient was started on Catapres patch and metoprolol has been discontinued due to bradycardia. Heart rate went up to 66 now. Laboratory data showed BUN 44 and creatinine 2.94 Potassium 5.4 bicarb is 21 magnesium 1.7 Patient had chest x-ray this morning showed bibasilar infiltrate and small effusion correlate for interstitial pneumonitis versus congestion. Underlying pneumonia in the differential diagnosis. Patient was given a dose of IV Lasix. VQ scan showed intermediate probability for pulmonary embolism. CT chest could not be done due to elevated creatinine level. Patient is currently requiring oxygen at 4 L via nasal cannula. Patient is not on home oxygen. No complaints of chest pain. No nausea vomiting or abdominal pain or diarrhea. No headache or dizziness. 10/17/2019 Patient is currently sitting in a chair seems fairly confused. Awake alert oriented 3. Still having shortness of breath and requiring oxygen at 4 L when as a cannula. Due to pleural effusion and vascular congestion patient was started on IV Lasix 40 mg twice daily. Patient is being continued on antibiotics for possible pneumonia. Patient had VQ scan showed moderate probability for PE and was started on therapeutic dose of Lovenox. Pulmonary was consulted for further evaluation and development of long-term anticoagulation. blood pressure is better controlled today. Heart rate improved to 70s. Nephrology and cardiology is on board. Pulmonary was consulted. 10/17/2017 Patient is currently sitting in the chair. Drowsy and lethargic. Otherwise no acute distress. Currently on oxygen via nasal cannula at 4 L. Patient is being continued on IV Lasix. Also on antibiotics in the form of azithromycin ceftriaxone for possible pneumonia and urinary tract infection. Laboratory showed sodium 140, potassium 6.1 and BUN 54 and creatinine 3.26. Magnesium 1.7 Patient was given dextrose and IV insulin for hyperkalemia. Follow-up potassium level. Pulmonary and nephrology is following. Chest x-ray showed increased bilateral airspace opacities and small bilateral pleural effusions versus 10/16/2019 10/19/2019 Patient is currently sitting in a chair. Slightly lethargic but awake alert oriented x3. Still having significant bilateral lower extremity edema and is being continued on Lasix. Change to Lasix drip now. No complaints of shortness of breath or chest pain. No fever no chills. Currently on antibiotics in the form of ceftriaxone and azithromycin. Denies any cough or sputum production. Laboratory showed WBC 5.3, hemoglobin 9.0 and platelets 155 Sodium 140, potassium 4.6, chloride 108, BUN 15 creatinine 3.15 Magnesium 1.6 Pulmonary nephrology is following. 10/20/19 Patient is currently sitting in a chair. She is drowsy but awake alert oriented 3. Slowly participating in physical therapy. Patient was started on Lasix drip. Breathing status is improving. Pulmonary is following. Nephrology is on board as well. 10/21/2019 Patient is currently lying in the bed comfortably. Shortness of breath is better. Patient is being continued on Lasix drip and also metolazone was added. Hemoglobin is 8.2 and creatinine level was 3.1 today. Patient has been afebrile. Currently being continued on hydralazine, amlodipine and Lasix for blood pressure control.. Beta blockers on hold due to bradycardia on admission. 10/22/2019 Patient is currently lying in the bed awake alert but more lethargic and also pain increasing confusion today. Patient has been afebrile. Laboratory data showed sodium 134, BUN 54 and creatinine 3.54 with slight increase in creatinine. Patient is currently on Lasix and metolazone was added yesterday. Nephrology is following. Patient is still having significant leg swelling and is being diuresed. Patient did complain of left foot swelling, redness and increasing pain and tenderness over the ankle area and possible developing cellulitis.. Patient completed antibiotic course for possible pneumonia. Antibiotics will be changed to Cefzil at this time. Patient is being followed by pulmonary and nephrology. PT OT will be continued. Follow-up CBC and BMP tomorrow. Review of systems: Was done for constitutional, cardiovascular, GI, pulmonary. relevant finding as above Objective - Vital Signs Vital signs: Vital Signs Temp 98.3 F 10/22/19 12:08 Pulse 72 10/22/19 12:08 Resp 19 10/22/19 12:08 BP 152/69 10/22/19 12:08 Pulse Ox 93 L 10/22/19 12:08 Intake & Output 10/21/19 10/22/19 10/22/19 18:59 06:59 18:59 Intake Total 100 194.000 Output Total 650 1000 1000 Balance -550 -806.000 -1000 Weight 113 kg Intake: Intake, IV Titration 100 194.000 Amount Furosemide 100 mg In 100 194.000 Sodium Chloride 0.9% 90 ml @ 10 MG/HR 10 mls/hr IV .Q10H [facility] Rx#: [id number] Output: Urine 650 1000 1000 Uretheral ([place]illiard) 1000 1000 Other: Voiding Method Indwelling Catheter Indwelling Catheter Indwelling Catheter - Exam PHYSICAL EXAMINATION: Patient is lying in the bed comfortably, no acute distress, awake alert and oriented. Mild confusion.. HEENT: Normocephalic. Neck is supple. Pupils reactive. Nostrils clear. Oral cavity is moist. Ears reveal no drainage. Neck reveals no JVD, carotid bruits, or thyromegaly. CHEST EXAMINATION: Trachea is central. Symmetrical expansion. Bibasilar diminished air entry and no rhonchi or wheezing. Lung greer clear to auscultation and percussion. CARDIAC: Normal S1, S2 with no gallops. No murmurs ABDOMEN: Soft. Bowel sounds normal. No organomegaly. No abdominal bruits. Extremities: 3+ bilateral edema. No clubbing or cyanosis Neurologically awake, alert, oriented x3 with well-coordinated movements. No focal deficits noted Skin: No rash or skin lesions. Psychiatric: Coperative. Nonsuicidal Musculoskeletal: No joint swelling or deformity. Normal range of motion. - Labs CBC & Chem 7: 10/21/19 07:04 10/22/19 11:03 Labs: Abnormal Lab Results - Last 24 Hours (Table) 10/21/19 10/21/19 10/21/19 Range/Units 12:23 17:22 20:06 Sodium (137-145) mmol/L BUN (7-17) mg/dL Creatinine (0.52-1.04) mg/dL Glucose (74-99) mg/dL POC Glucose (mg/dL) 179 H 196 H 207 H (75-99) mg/dL 10/22/19 10/22/19 10/22/19 Range/Units 07:02 11:03 11:46 Sodium 134 L (137-145) mmol/L BUN 54 H (7-17) mg/dL Creatinine 3.54 H (0.52-1.04) mg/dL Glucose 151 H (74-99) mg/dL POC Glucose (mg/dL) 143 H 141 H (75-99) mg/dL Assessment and Plan Assessment: -Acute hypoxic respiratory failure secondary to fluid overload and acute on chronic CHF with diastolic dysfunction. Patient was started on Lasix drip.. -Acute kidney injury secondary to ATN secondary to infection. -Left lower extremity cellulitis around ankle area. -Significant bradycardia patient was on Toprol-XL 200 mg. on hold now. Heart rate improved now. -Hypertensive urgency. BP controlled now. -Acute UTI from cystitis -Intermediate probability for PE and VQ scan. CTA could not be done due to creatinine level. -Obesity BMI 32.5 -Depression otherwise specified -Metabolic encephalopathy could be from medications. Patient of the hefty dose of Ambien. Cutback on the same.-Slow to respond -GERD -Essential hypertension -Diabetes mellitus type 2 -Diabetic nephropathy, CK D stage IV -Metabolic acidosis from kidney failure -Hypothermic-metabolic on Suma hugger Plan: Continue with Lasix drip and metolazone due to significant lower extremity swelling.Continue with antibiotics. Was started on Lovenox 80 mg daily for possible pulmonary embolism. Bilateral lower extremity duplex scan negative DVT. chnaged to lovenox 40mg Sq now. Pulmonary is following. Continue to titrate blood pressure medications. Follow electrolytes, Accu-Cheks are being followed. On sodium bicarbonate. Repeat labs in the morning. Labs the patient sit up in a chair. PTOT. Time with Patient: Greater than 30
[2019-10-23] MEDS: FUROSEMIDE 100 MG in SODIUM CHLORIDE 0.9% 90 ML IV SCH ×3 (01:27→18:20)
[2019-10-23 06:54] LABS: Basophils % (A) 0 %; Eosinophils # (A) 0.1 k/uL (0-0.7); Eosinophils % (A) 3 %; HCT 24.6 % (34.0-46.0); HGB 7.9 gm/dL (11.4-16.0); Hypochromasia Slight; Lymphocytes # (A) 0.6 k/uL (1.0-4.8); Lymphocytes % (A) 12 %; MCH 29.1 pg (25.0-35.0); MCHC 31.9 g/dL (31.0-37.0); MCV 91.1 fL (80.0-100.0); Mean Platelet Volume 8.1; Monocytes # (A) 0.4 k/uL (0-1.0); Monocytes % (A) 8 %; Neutrophils # (A) 3.9 k/uL (1.3-7.7); Neutrophils % (A) 74 %; Platelet Count 158 k/uL (150-450); RDW 14.8 % (11.5-15.5); WBC 5.3 k/uL (3.8-10.6)
[2019-10-23 07:10] LABS: Calcium 8.4 mg/dL (8.4-10.2); Potassium 4.9 mmol/L (3.5-5.1)
[2019-10-23 07:16] LABS: Glucose,Whole Blood 147 mg/dL (75-99)
[2019-10-23] MEDS: SODIUM BICARBONATE TAB 650 MG TAB PO SCH ×2 (09:49→20:10)
[2019-10-23] MEDS: hydrALAZINE HCL 50 MG TAB PO SCH ×4 (09:50→21:19)
[2019-10-23] MEDS: amLODIPine 10 MG TAB PO SCH (09:50)
[2019-10-23] MEDS: MAGNESIUM OXIDE 400 MG TAB PO SCH ×3 (09:50→21:19)
[2019-10-23] MEDS: ASPIRIN 81 MG PO SCH (09:50)
[2019-10-23] MEDS: MULTIVITAMINS, THERA 1 EACH TAB PO SCH (09:50)
[2019-10-23] MEDS: CALCIUM ACETATE 667 MG TAB PO SCH ×3 (09:50→17:40)
[2019-10-23] MEDS: PANTOPRAZOLE 40 MG TABLET PO SCH (09:50)
[2019-10-23] MEDS: ENOXAPARIN 30 MG/0.3 ML SYRINGE SQ SCH (09:50)
[2019-10-23] MEDS: INSULIN ASPART (NovoLOG) 100 UNIT/ML VIAL SQ SCH ×4 (09:51→20:11)
[2019-10-23] MEDS: metOLazone 2.5 MG TAB PO SCH (09:52)
[2019-10-23] MEDS: ACETAMINOPHEN TAB 325 MG TAB PO PRN (09:59)
[2019-10-23 11:33] LABS: Glucose,Whole Blood 224 mg/dL (75-99)
--- NOTE | 2019-10-23 16:25 | P.PN ---
Subjective Progress Note Date: 10/23/19 Principal diagnosis: Acute UTI from cystitis Bradycardia This is a [address] Kristy Ortega. Patient was just at [facility] from October 08. Admitted there with a creatinine of 3.6. Prior to discharge a day ago creatinine was down to 3.2. Seen by Dr. Bocanegra. Renal ultrasound did not show any major abnormality. Corticomedullary differentiation was maintained. Patient came home and felt tired lethargic. Rundown. Appetite has been okay. [place] cold. She decided to come back in again. Patient has known diabetes. [place] to have diabetic nephropathy. Chronic stable medical conditions include diabetes, GERD, hypertension, hyperlipidemia, obstructive sleep apnea. Patient last labs here on September 04 were 2.93. Also found to be bradycardic. Patient does use a walker. Admitted with metabolic encephalopathy. Ambien and Xanax was discontinued. Patient also found to be hypothermic. Suma hugger given. Given IV fluids. 10/14-more awake today.. Answers questions better. Suma hugger in place. The 25% of breakfast and 75% of lunch. Laying in bed. Tired. 10/16/2019 Patient is currently sitting in the chair. Awake alert and oriented without seems to be confused. Blood pressure still elevated patient was started on Catapres patch and metoprolol has been discontinued due to bradycardia. Heart rate went up to 66 now. Laboratory data showed BUN 44 and creatinine 2.94 Potassium 5.4 bicarb is 21 magnesium 1.7 Patient had chest x-ray this morning showed bibasilar infiltrate and small effusion correlate for interstitial pneumonitis versus congestion. Underlying pneumonia in the differential diagnosis. Patient was given a dose of IV Lasix. VQ scan showed intermediate probability for pulmonary embolism. CT chest could not be done due to elevated creatinine level. Patient is currently requiring oxygen at 4 L via nasal cannula. Patient is not on home oxygen. No complaints of chest pain. No nausea vomiting or abdominal pain or diarrhea. No headache or dizziness. 10/17/2019 Patient is currently sitting in a chair seems fairly confused. Awake alert oriented 3. Still having shortness of breath and requiring oxygen at 4 L when as a cannula. Due to pleural effusion and vascular congestion patient was started on IV Lasix 40 mg twice daily. Patient is being continued on antibiotics for possible pneumonia. Patient had VQ scan showed moderate probability for PE and was started on therapeutic dose of Lovenox. Pulmonary was consulted for further evaluation and development of long-term anticoagulation. blood pressure is better controlled today. Heart rate improved to 70s. Nephrology and cardiology is on board. Pulmonary was consulted. 10/17/2017 Patient is currently sitting in the chair. Drowsy and lethargic. Otherwise no acute distress. Currently on oxygen via nasal cannula at 4 L. Patient is being continued on IV Lasix. Also on antibiotics in the form of azithromycin ceftriaxone for possible pneumonia and urinary tract infection. Laboratory showed sodium 140, potassium 6.1 and BUN 54 and creatinine 3.26. Magnesium 1.7 Patient was given dextrose and IV insulin for hyperkalemia. Follow-up potassium level. Pulmonary and nephrology is following. Chest x-ray showed increased bilateral airspace opacities and small bilateral pleural effusions versus 10/16/2019 10/19/2019 Patient is currently sitting in a chair. Slightly lethargic but awake alert oriented x3. Still having significant bilateral lower extremity edema and is being continued on Lasix. Change to Lasix drip now. No complaints of shortness of breath or chest pain. No fever no chills. Currently on antibiotics in the form of ceftriaxone and azithromycin. Denies any cough or sputum production. Laboratory showed WBC 5.3, hemoglobin 9.0 and platelets 155 Sodium 140, potassium 4.6, chloride 108, BUN 15 creatinine 3.15 Magnesium 1.6 Pulmonary nephrology is following. 10/20/19 Patient is currently sitting in a chair. She is drowsy but awake alert oriented 3. Slowly participating in physical therapy. Patient was started on Lasix drip. Breathing status is improving. Pulmonary is following. Nephrology is on board as well. 10/21/2019 Patient is currently lying in the bed comfortably. Shortness of breath is better. Patient is being continued on Lasix drip and also metolazone was added. Hemoglobin is 8.2 and creatinine level was 3.1 today. Patient has been afebrile. Currently being continued on hydralazine, amlodipine and Lasix for blood pressure control.. Beta blockers on hold due to bradycardia on admission. 10/22/2019 Patient is currently lying in the bed awake alert but more lethargic and also pain increasing confusion today. Patient has been afebrile. Laboratory data showed sodium 134, BUN 54 and creatinine 3.54 with slight increase in creatinine. Patient is currently on Lasix and metolazone was added yesterday. Nephrology is following. Patient is still having significant leg swelling and is being diuresed. Patient did complain of left foot swelling, redness and increasing pain and tenderness over the ankle area and possible developing cellulitis.. Patient completed antibiotic course for possible pneumonia. Antibiotics will be changed to Cefzil at this time. Patient is being followed by pulmonary and nephrology. PT OT will be continued. Follow-up CBC and BMP tomorrow. Review of systems: Was done for constitutional, cardiovascular, GI, pulmonary. relevant finding as above 10/23/2019 Patient is seen and evaluated in follow-up with no acute overnight issues. Patient lethargic although easily arousable. Patient her alert and oriented 2- 3. Nephrology following closely in discussing the possibility of hemodialysis. Patient does not want to have to do dialysis but states she understands this is a possibility. Patient currently remains on a Lasix drip at 10 mL's an hour with no real improvement in creatinine. Current creatinine is slightly elevated at 3.77 and BUN is 61. Hemoglobin is currently 7.9. Sodium is 134 potassium of 4.9. Blood sugars being closely monitored and maintained on sliding scale. Patient continues on IV antibiotics for the possibility of left lower extremity cellulitis and is being closely monitored. Patient continues to have some lower extremity edema although states has slightly improved. Patient denies any chest pain, shortness of breath, or palpitations. Patient is afebrile. No reports of nausea or vomiting and patient is tolerating diet. Pulmonary following also and patient continues on 3 L of oxygen via nasal cannula. Currently awaiting PT/OT evaluation. Objective - Vital Signs Vital signs: Vital Signs Temp 97.7 F 10/23/19 12:20 Pulse 74 10/23/19 12:20 Resp 19 10/23/19 12:20 BP 151/67 10/23/19 12:20 Pulse Ox 92 L 10/23/19 12:20 Intake & Output 10/22/19 10/23/19 10/23/19 18:59 06:59 18:59 Intake Total 100 496.167 83.833 Output Total 1000 1700 Balance -900 -1203.833 83.833 Weight 91 kg Intake: Intake, IV Titration 100 86.167 83.833 Amount Furosemide 100 mg In 100 86.167 83.833 Sodium Chloride 0.9% 90 ml @ 10 MG/HR 10 mls/hr IV .Q10H [facility] Rx#: [id number] Oral 410 Output: Urine 1000 1700 Uretheral ([place]illiard) 1000 Other: Voiding Method Indwelling Catheter Indwelling Catheter Indwelling Catheter - Exam Patient is sitting up in the chair comfortably, no acute distress, awake alert and oriented 2. Mild confusion.. HEENT: Normocephalic. Neck is supple. Pupils reactive. Nostrils clear. Oral cavity is moist. Ears reveal no drainage. Neck reveals no JVD, carotid bruits, or thyromegaly. CHEST EXAMINATION: Trachea is central. Symmetrical expansion. Bibasilar dimini shed air entry and no rhonchi or wheezing. Lung greer clear to auscultation and percussion. CARDIAC: Normal S1, S2 with no gallops. No murmurs ABDOMEN: Soft. Bowel sounds normal. No organomegaly. No abdominal bruits. Extremities: 2+ bilateral edema. No clubbing or cyanosis Neurologically awake, alert, oriented x3 with well-coordinated movements. No focal deficits noted Skin: No rash or skin lesions. Psychiatric: Cooperative. Non-suicidal Musculoskeletal: No joint swelling or deformity. Normal range of motion. - Labs CBC & Chem 7: 10/23/19 05:48 10/23/19 05:48 Labs: Abnormal Lab Results - Last 24 Hours (Table) 10/22/19 10/22/19 10/23/19 Range/Units 17:13 20:54 05:48 RBC (3.80-5.40) m/uL Hgb (11.4-16.0) gm/dL Hct (34.0-46.0) % Lymphocytes # (1.0-4.8) k/uL Sodium 134 L (137-145) mmol/L BUN 61 H (7-17) mg/dL Creatinine 3.77 H (0.52-1.04) mg/dL Glucose 144 H (74-99) mg/dL POC Glucose (mg/dL) 170 H 212 H (75-99) mg/dL 10/23/19 10/23/19 10/23/19 Range/Units 05:48 06:58 11:14 RBC 2.70 L (3.80-5.40) m/uL Hgb 7.9 L (11.4-16.0) gm/dL Hct 24.6 L (34.0-46.0) % Lymphocytes # 0.6 L (1.0-4.8) k/uL Sodium (137-145) mmol/L BUN (7-17) mg/dL Creatinine (0.52-1.04) mg/dL Glucose (74-99) mg/dL POC Glucose (mg/dL) 147 H 224 H (75-99) mg/dL Assessment and Plan Assessment: -Acute hypoxic respiratory failure secondary to fluid overload and acute on chronic CHF with diastolic dysfunction. Patient currently remains on Lasix drip -Acute kidney injury secondary to ATN secondary to infection. -Left lower extremity cellulitis around ankle area. Maintained on IV cefazolin -Significant bradycardia patient was on Toprol-XL 200 mg. on hold now. Heart rate improved now. -Hypertensive urgency. BP controlled now. -Acute UTI from cystitis -Intermediate probability for PE and VQ scan. CTA could not be done due to creatinine level. -Obesity BMI 32.5 -Depression otherwise specified -Metabolic encephalopathy could be from medications. Patient was on a large dose of Ambien. Cutback on the same.-Slow to respond -GERD -Essential hypertension -Diabetes mellitus type 2 -Diabetic nephropathy, CK D stage IV -Metabolic acidosis from kidney failure -Hypothermic-metabolic on Suma hugger, improved Plan: Continue with Lasix drip and metolazone due to significant lower extremity swelling.Continue with antibiotics. Was started on Lovenox 80 mg daily for possible pulmonary embolism. Bilateral lower extremity duplex scan negative DVT. chnaged to lovenox 40mg Sq now. Pulmonary is following. Continue to titrate blood pressure medications. Follow electrolytes, Accu-Cheks are being followed. On sodium bicarbonate. Repeat labs in the morning. Physical therapy to evaluate the patient. Nephrology also following closely and will discuss with the possibility of hemodialysis. Due to multiple complex medical issues, prognosis is guarded. Further recommendations to follow.
[2019-10-23 17:13] LABS: Glucose,Whole Blood 251 mg/dL (75-99)
--- NOTE | 2019-10-23 18:07 | P.PN ---
Subjective Progress Note Date: 10/23/19 Principal diagnosis: Sinus bradycardia This is a pleasant 64-year-old female patient with coronary artery disease and diabetes and hypertension and dyslipidemia as well as a sleep apnea was admitted to the hospital initially with change in mental status and we consulted to see her for bradycardia. The patient also was diagnosed with fluid overload and she was started on Lasix drip. She was seen today October [id number]. The patient denies any symptoms of chest pain or chest discomfort which she continues to be on Lasix drip. The creatinine continues to be stable. Objective - Vital Signs Vital signs: Vital Signs Temp 97.7 F 10/23/19 12:20 Pulse 74 10/23/19 12:20 Resp 19 10/23/19 12:20 BP 151/67 10/23/19 12:20 Pulse Ox 92 L 10/23/19 12:20 Intake & Output 10/22/19 10/23/19 10/23/19 18:59 06:59 18:59 Intake Total 100 496.167 323.833 Output Total 1000 1700 Balance -900 -1203.833 323.833 Weight 91 kg 91 kg Intake: Intake, IV Titration 100 86.167 83.833 Amount Furosemide 100 mg In 100 86.167 83.833 Sodium Chloride 0.9% 90 ml @ 10 MG/HR 10 mls/hr IV .Q10H [facility] Rx#: [id number] Oral 410 240 Output: Urine 1000 1700 Uretheral ([place]illi[place]) 1000 Other: Voiding Method Indwelling Catheter Indwelling Catheter Indwelling Catheter - Constitutional General appearance: Present: no acute distress - Respiratory Respiratory: bilateral: diminished - Cardiovascular Heart sounds: normal: S1, S2 - Labs CBC & Chem 7: 10/23/19 05:48 10/23/19 05:48 Labs: Abnormal Lab Results - Last 24 Hours (Table) 10/22/19 10/23/19 10/23/19 Range/Units 20:54 05:48 05:48 RBC 2.70 L (3.80-5.40) m/uL Hgb 7.9 L (11.4-16.0) gm/dL Hct 24.6 L (34.0-46.0) % Lymphocytes # 0.6 L (1.0-4.8) k/uL Sodium 134 L (137-145) mmol/L BUN 61 H (7-17) mg/dL Creatinine 3.77 H (0.52-1.04) mg/dL Glucose 144 H (74-99) mg/dL POC Glucose (mg/dL) 212 H (75-99) mg/dL 10/23/19 10/23/19 10/23/19 Range/Units 06:58 11:14 17:06 RBC (3.80-5.40) m/uL Hgb (11.4-16.0) gm/dL Hct (34.0-46.0) % Lymphocytes # (1.0-4.8) k/uL Sodium (137-145) mmol/L BUN (7-17) mg/dL Creatinine (0.52-1.04) mg/dL Glucose (74-99) mg/dL POC Glucose (mg/dL) 147 H 224 H 251 H (75-99) mg/dL Assessment and Plan Assessment: Assessment #1 change in mental status #2 acute renal failure #3 sinus bradycardia #4 coronary artery disease #5 multiple comorbid conditions Plan #1 continue Lasix drip #2 continue monitor the kidney function and electrolytes #3 follow-up with the patient
--- NOTE | 2019-10-23 18:53 | PN ---
PROGRESS NOTE The patient is seen for followup for chronic kidney disease and volume overload. Her serum creatinine stays at 3.5 to 3.7 mg/dL with slightly increasing creatinine over the last couple of days. The patient is currently maintained on Lasix drip at 10 mg/hour. Her 24-hour urine output was 2.7 liters. Patient's weight has not changed significantly. She remains significantly volume-overloaded. PHYSICAL EXAMINATION: On examination, patient is comfortable, awake. She is not in any acute distress. Blood pressure is 151/67, heart rate 74 per minute. Patient is afebrile. EXAMINATION OF THE HEART: S1 and S2. EXAMINATION OF LUNGS: Bilateral breath sounds are heard. ABDOMEN: Soft, non-tender. Examination of lower extremities shows edema 2 to 3+ bilaterally. [employer] exam is grossly intact. LABS: Labs show sodium of 134, potassium 4.9, BUN 61, creatinine 3.7, calcium 8.4, hemoglobin 7.9 g/dL. ASSESSMENT: 1. Chronic kidney disease secondary to diabetic nephropathy with progressive worsening of renal function over the past few months. 2. Severe volume overload. 3. Acute kidney injury, mostly acute tubular necrosis versus cardiorenal syndrome. 4. Metabolic acidosis. 5. Anemia with chronic disease. PLAN: Continue with the Lasix drip for now. I will check serologies, and if renal function continues to worsen by tomorrow, we will proceed with initiation of renal replacement therapy. Patient's UA is quite benign except for proteinuria. Therefore I doubt any other underlying vasculitis. MMODL / IJN: [id number] /
[2019-10-23 19:37] LABS: Glucose,Whole Blood 184 mg/dL (75-99)
[2019-10-23] MEDS: PIOGLITAZONE 30 MG TAB PO SCH (20:10)
[2019-10-23 20:23] LABS: Hepatitis B Surface AB- Quant 206.6 mIU/mL; Hepatitis B Surface Antibody Reactive (Non-Reactive); Hepatitis B Surface Antigen Non-Reactive (Non-Reactive)
[2019-10-24] MEDS: FUROSEMIDE 100 MG in SODIUM CHLORIDE 0.9% 90 ML IV SCH (02:46)
[2019-10-24 07:04] LABS: Glucose,Whole Blood 152 mg/dL (75-99)
[2019-10-24 07:28] LABS: Basophils % (A) 0 %; Eosinophils # (A) 0.2 k/uL (0-0.7); Eosinophils % (A) 4 %; HCT 23.7 % (34.0-46.0); HGB 7.4 gm/dL (11.4-16.0); Hypochromasia Slight; Lymphocytes # (A) 0.5 k/uL (1.0-4.8); Lymphocytes % (A) 11 %; MCV 90.1 fL (80.0-100.0); Mean Platelet Volume 8.1; Monocytes # (A) 0.4 k/uL (0-1.0); Monocytes % (A) 8 %; Neutrophils # (A) 3.3 k/uL (1.3-7.7); Neutrophils % (A) 73 %; Platelet Count 187 k/uL (150-450); RBC 2.63 m/uL (3.80-5.40); RDW 14.3 % (11.5-15.5); WBC 4.6 k/uL (3.8-10.6)
[2019-10-24 07:37] LABS: Calcium 8.3 mg/dL (8.4-10.2); Potassium 4.6 mmol/L (3.5-5.1)
[2019-10-24] MEDS: SODIUM BICARBONATE TAB 650 MG TAB PO SCH ×2 (09:03→20:23)
[2019-10-24] MEDS: hydrALAZINE HCL 50 MG TAB PO SCH ×4 (09:03→21:08)
[2019-10-24] MEDS: INSULIN ASPART (NovoLOG) 100 UNIT/ML VIAL SQ SCH ×4 (09:03→20:24)
[2019-10-24] MEDS: CALCIUM ACETATE 667 MG TAB PO SCH ×3 (09:03→16:58)
[2019-10-24] MEDS: MULTIVITAMINS, THERA 1 EACH TAB PO SCH (09:03)
[2019-10-24] MEDS: ENOXAPARIN 30 MG/0.3 ML SYRINGE SQ SCH (09:04)
[2019-10-24] MEDS: PANTOPRAZOLE 40 MG TABLET PO SCH (09:04)
[2019-10-24] MEDS: amLODIPine 10 MG TAB PO SCH (09:04)
[2019-10-24] MEDS: MAGNESIUM OXIDE 400 MG TAB PO SCH ×3 (09:04→21:08)
[2019-10-24] MEDS: ASPIRIN 81 MG PO SCH (09:06)
[2019-10-24] MEDS: metOLazone 2.5 MG TAB PO SCH (09:10)
[2019-10-24 11:57] LABS: Glucose,Whole Blood 172 mg/dL (75-99)
--- NOTE | 2019-10-24 12:28 | P.PN ---
Subjective Progress Note Date: 10/24/19 Principal diagnosis: Sinus bradycardia This is a pleasant 64-year-old female patient with coronary artery disease and diabetes and hypertension and dyslipidemia as well as a sleep apnea was admitted to the hospital initially with change in mental status and we consulted to see her for bradycardia. The patient also was diagnosed with fluid overload and she was started on Lasix drip. The patient was seen today October [id number]. Unfortunately the kidney function is worse. She continues to be on Lasix drip. She is going to have dialysis catheter later on today. At this point, we'll follow-up with the patient on when necessary case. Objective - Vital Signs Vital signs: Vital Signs Temp 98 F 10/24/19 11:53 Pulse 77 10/24/19 11:53 Resp 20 10/24/19 11:53 BP 154/65 10/24/19 11:53 Pulse Ox 94 L 10/24/19 11:53 Intake & Output 10/23/19 10/24/19 10/24/19 18:59 06:59 18:59 Intake Total 408.833 664.333 Output Total 1200 Balance 408.833 664.333 -1200 Weight 91 kg 114 kg Intake: Intake, IV Titration 168.833 84.333 Amount Furosemide 100 mg In 168.833 84.333 Sodium Chloride 0.9% 90 ml @ 10 MG/HR 10 mls/hr IV .Q10H REPLACED BY [facility] Rx#: [id number] Oral 240 580 Output: Urine 1200 Other: Voiding Method Indwelling Catheter Indwelling Catheter Indwelling Catheter # Bowel Movements 1 - Constitutional General appearance: Present: no acute distress - Neck Carotids: bilateral: upstroke delayed - Respiratory Respiratory: bilateral: CTA - Cardiovascular Rhythm: regular - Labs CBC & Chem 7: 10/24/19 06:45 10/24/19 06:45 Labs: Abnormal Lab Results - Last 24 Hours (Table) 10/23/19 10/23/19 10/23/19 Range/Units 05:48 17:06 19:24 RBC (3.80-5.40) m/uL Hgb (11.4-16.0) gm/dL Hct (34.0-46.0) % Lymphocytes # (1.0-4.8) k/uL Sodium (137-145) mmol/L BUN (7-17) mg/dL Creatinine (0.52-1.04) mg/dL Glucose (74-99) mg/dL POC Glucose (mg/dL) 251 H 184 H (75-99) mg/dL Calcium (8.4-10.2) mg/dL Hep Bs Antibody Reactive H (Non-Reactive) 10/24/19 10/24/19 10/24/19 Range/Units 06:45 06:45 07:04 RBC 2.63 L (3.80-5.40) m/uL Hgb 7.4 L (11.4-16.0) gm/dL Hct 23.7 L (34.0-46.0) % Lymphocytes # 0.5 L (1.0-4.8) k/uL Sodium 134 L (137-145) mmol/L BUN 63 H (7-17) mg/dL Creatinine 4.18 H (0.52-1.04) mg/dL Glucose 139 H (74-99) mg/dL POC Glucose (mg/dL) 152 H (75-99) mg/dL Calcium 8.3 L (8.4-10.2) mg/dL Hep Bs Antibody (Non-Reactive) 10/24/19 Range/Units 11:55 RBC (3.80-5.40) m/uL Hgb (11.4-16.0) gm/dL Hct (34.0-46.0) % Lymphocytes # (1.0-4.8) k/uL Sodium (137-145) mmol/L BUN (7-17) mg/dL Creatinine (0.52-1.04) mg/dL Glucose (74-99) mg/dL POC Glucose (mg/dL) 172 H (75-99) mg/dL Calcium (8.4-10.2) mg/dL Hep Bs Antibody (Non-Reactive) Assessment and Plan Assessment: Assessment #1 change in mental status #2 acute renal failure #3 sinus bradycardia #4 coronary artery disease #5 multiple comorbid conditions Plan #1 continue Lasix drip #2 the patient is going for dialysis catheter #3 follow-up with the patient on when necessary
[2019-10-24] MEDS ORDERED: MIDAZOLAM 2 MG/2 ML VIAL IV ONE (13:08)
[2019-10-24] MEDS ORDERED: ONDANSETRON 4 MG/2 ML VIAL IVP ONE (13:08)
[2019-10-24] MEDS ORDERED: LIDOCAINE 1% INJ 10MG/ML (20 ML MDV) SQ ONE (13:09)
[2019-10-24 13:35] LABS: Anti-DNA, DS unit <1.0 IU/mL; DNA Double-Stranded NEGATIVE (NEGATIVE)
[2019-10-24] MEDS ORDERED: SODIUM CHLORIDE 0.9% 250 ML IV ONE (13:46)
--- NOTE | 2019-10-24 14:00 | P.GSCN ---
History of Present Illness History of present illness: 64-year-old white female, patient came with the acute chronic renal failure. Occluded and is increasing. I was consulted for placement of urgent dialysis catheter patient was on previous leg Lasix drip and now the creatinine is getting high Neck examination neck is supple no bruit appreciated patient to had a scar on the right side of the neck from a previous carotid endarterectomy new Chest examination good entry both lungs first and second sound normal Abdomen soft nontender femoral pulses are present Plan is placement of dialysis catheter risk and complication discussed Past Medical History Past Medical History: Coronary Artery Disease (CAD), CVA/TIA, Diabetes Mellitus, GERD/Reflux, Hypertension Additional Past Medical History / Comment(s): cva 2012, arthritis, polyps, high heart ratte at times with short bursts of V tach History of Any Multi-Drug Resistant Organisms: None Reported Past Surgical History: Heart Catheterization Additional Past Surgical History / Comment(s): carotid endarct, Lumpectomy right breast, Carpel Tunnel Surgery bilat wrists, pyleonitis cyst removal, vericose vein removal Past Anesthesia/Blood Transfusion Reactions: Previous Problems w/ Anesthesia Additional Past Anesthesia/Blood Transfusion Reaction / Comm: had trouble waking up after surgery Past Psychological History: Anxiety Past Alcohol Use History: Occasional Past Drug Use History: None Reported - Past Family History Daughter(s) Additional Family Medical History / Comment(s): fast heart rate Medications and Allergies Home Medications Medication Instructions Recorded Confirmed Type ALPRAZolam [Xanax] 0.25 mg PO BID PRN 05/07/14 10/13/19 History Multivitamins, Thera [Multivitamin 1 tab PO DAILY 05/07/14 10/13/19 History (formulary)] Zolpidem [Ambien] 10 mg PO HS PRN 05/07/14 10/13/19 History amLODIPine [Norvasc] 10 mg PO DAILY 05/07/14 10/13/19 History Aspirin EC [Ecotrin Low Dose] 81 mg PO DAILY 09/19/15 10/13/19 History Furosemide [Lasix] 20 mg PO DAILY 09/01/19 10/13/19 History Magnesium Oxide [Day] 500 mg PO TID 09/01/19 10/13/19 History Metoprolol Succinate [Toprol XL] 200 mg PO DAILY 09/01/19 10/13/19 History Pioglitazone [Actos] 30 mg PO HS 09/01/19 10/13/19 History Pantoprazole [Protonix] 40 mg PO AC-BRKFST 30 Days #30 09/05/19 10/13/19 Rx tablet. Sodium Bicarbonate Tab 650 mg PO BID 30 Days #60 tab 09/05/19 10/13/19 Rx hydrALAZINE HCL [Apresoline] 50 mg PO TID 30 Days #90 tab 09/05/19 10/13/19 Rx Calcium Acetate [PhosLo] 667 mg PO AC-TID 09/07/19 10/13/19 History DULoxetine HCL [Cymbalta] 30 mg PO DIRECTED 10/13/19 10/13/19 History DULoxetine HCL [Cymbalta] 60 mg PO DIRECTED 10/13/19 10/13/19 History Losartan Potassium 50 mg PO DAILY 10/13/19 10/13/19 History Allergies Allergy/AdvReac Type Severity Reaction Status Date / Time captopril Allergy Cough Verified 10/13/19 18:58 cephalexin monohydrate Allergy Rash/Hives Verified 10/13/19 18:58 [From Keflex] Penicillins Allergy Rash/Hives Verified 10/13/19 18:58 Surgical - Exam Vital Signs Temp Pulse Resp BP Pulse Ox 96.6 F L 42 L 16 105/54 98 10/13/19 14:52 10/13/19 14:52 10/13/19 14:52 10/13/19 14:52 10/13/19 14:52 Results - Labs 10/24/19 06:45 10/24/19 06:45 Abnormal Lab Results - Last 24 Hours (Table) 10/23/19 10/23/19 10/23/19 Range/Units 05:48 17:06 19:24 RBC (3.80-5.40) m/uL Hgb (11.4-16.0) gm/dL Hct (34.0-46.0) % Lymphocytes # (1.0-4.8) k/uL Sodium (137-145) mmol/L BUN (7-17) mg/dL Creatinine (0.52-1.04) mg/dL Glucose (74-99) mg/dL POC Glucose (mg/dL) 251 H 184 H (75-99) mg/dL Calcium (8.4-10.2) mg/dL Hep Bs Antibody Reactive H (Non-Reactive) 10/24/19 10/24/19 10/24/19 Range/Units 06:45 06:45 07:04 RBC 2.63 L (3.80-5.40) m/uL Hgb 7.4 L (11.4-16.0) gm/dL Hct 23.7 L (34.0-46.0) % Lymphocytes # 0.5 L (1.0-4.8) k/uL Sodium 134 L (137-145) mmol/L BUN 63 H (7-17) mg/dL Creatinine 4.18 H (0.52-1.04) mg/dL Glucose 139 H (74-99) mg/dL POC Glucose (mg/dL) 152 H (75-99) mg/dL Calcium 8.3 L (8.4-10.2) mg/dL Hep Bs Antibody (Non-Reactive) 10/24/19 Range/Units 11:55 RBC (3.80-5.40) m/uL Hgb (11.4-16.0) gm/dL Hct (34.0-46.0) % Lymphocytes # (1.0-4.8) k/uL Sodium (137-145) mmol/L BUN (7-17) mg/dL Creatinine (0.52-1.04) mg/dL Glucose (74-99) mg/dL POC Glucose (mg/dL) 172 H (75-99) mg/dL Calcium (8.4-10.2) mg/dL Hep Bs Antibody (Non-Reactive) Diabetes panel 10/24/19 Range/Units 06:45 Sodium 134 L (137-145) mmol/L Potassium 4.6 (3.5-5.1) mmol/L Chloride 98 (98-107) mmol/L Carbon Dioxide 29 (22-30) mmol/L BUN 63 H (7-17) mg/dL Creatinine 4.18 H (0.52-1.04) mg/dL Glucose 139 H (74-99) mg/dL Calcium 8.3 L (8.4-10.2) mg/dL Calcium panel 10/24/19 Range/Units 06:45 Calcium 8.3 L (8.4-10.2) mg/dL Pituitary panel 10/24/19 Range/Units 06:45 Sodium 134 L (137-145) mmol/L Potassium 4.6 (3.5-5.1) mmol/L Chloride 98 (98-107) mmol/L Carbon Dioxide 29 (22-30) mmol/L BUN 63 H (7-17) mg/dL Creatinine 4.18 H (0.52-1.04) mg/dL Glucose 139 H (74-99) mg/dL Calcium 8.3 L (8.4-10.2) mg/dL Adrenal panel 10/24/19 Range/Units 06:45 Sodium 134 L (137-145) mmol/L Potassium 4.6 (3.5-5.1) mmol/L Chloride 98 (98-107) mmol/L Carbon Dioxide 29 (22-30) mmol/L BUN 63 H (7-17) mg/dL Creatinine 4.18 H (0.52-1.04) mg/dL Glucose 139 H (74-99) mg/dL Calcium 8.3 L (8.4-10.2) mg/dL
--- NOTE | 2019-10-24 14:03 | P.PCN ---
Description of Procedure: Preoperative diagnoses is acute chronic renal failure Postoperative same Procedure placement of a dialysis catheter right jugular approach 90 cm sedation time is 41 minutes Procedure patient brought to the Script Coordinator Obie of the chest and neck was prepped and draped applied sterile manner with local and IV sedation ultrasound guided micropuncture introduced right jugular vein micropuncture guidewire passed and 4-Cypriot dilator advanced. The guidewire. After that we passed a regular guidewire under fluoroscopy control which was parked at the inferior vena cava tunnel was created through the terminal be brought 19 cm dialysis catheter then dilator were advanced on the top of the guidewire and sheath was advanced on top the guidewire. After that we placed acatheter through the sheath and sheath was removed tip of the catheter superior vena cava and atrium junction flush with heparin saline and Hep-Lock secured with 3-0 Vicryl and nylon and applied patient tolerated the procedure well plan is excision of the chest
--- NOTE | 2019-10-24 14:06 | IR ---
EXAMINATION TYPE: IR cvc insert >=5 years DATE OF EXAM: 10/24/2019 COMPARISON: NONE HISTORY: Fluoroscopy time. Fluoroscopy was provided to the referring clinician. 1.5 minutes of fluoroscopy provided.
[2019-10-24] MEDS: DARBEPOETIN ALFA 40 MCG/0.4 ML SYRINGE SQ SCH (14:13)
[2019-10-24] MEDS: cloNIDine 0.3 MG/24HR PATCH TRANSDERM SCH (14:13)
--- NOTE | 2019-10-24 14:39 | XR ---
EXAMINATION TYPE: XR chest 1V portable DATE OF EXAM: 10/24/2019 COMPARISON: 10/20/2019 HISTORY: Dialysis catheter insertion TECHNIQUE: Single frontal view of the chest is obtained. FINDINGS: Right-sided catheter seen with the tip overlying the SVC and no sizable pneumothorax. Bila teral consolidation and pleural effusion. Arthropathy of the shoulder. Heart size mildly enlarged. Grier rgical skin clips are seen overlying the soft tissues of the neck. IMPRESSION: 1. Tip of the dialysis catheter overlies the SVC with no sizable pneumothorax. 2. Bilateral infiltrate and small effusion are stable. Correlate for mild central venous congestion.
[2019-10-24] MEDS: HYDROcodone/APAP 5-325MG 1 EACH TAB PO PRN ×2 (15:14→20:23)
[2019-10-24 16:54] LABS: Glucose,Whole Blood 188 mg/dL (75-99)
[2019-10-24] MEDS: FUROSEMIDE 10 MG/ML 10 ML VIAL IV SCH ×2 (16:58→23:29)
--- NOTE | 2019-10-24 18:21 | PN ---
PROGRESS NOTE Patient is seen for followup for acute kidney injury on top of chronic kidney disease. She continues to have significant edema. Patient is maintained on Lasix drip. However, urine output was 2.7 L for 24 hours. Serum creatinine continues to worsen. It is at 4.1 today. Overall, patient is complaining of weakness. PHYSICAL EXAMINATION: On examination today, blood pressure was 133/65, heart rate 76 per minute. She is afebrile. EXAMINATION OF THE HEART: S1 and S2. EXAMINATION OF LUNGS: Decreased breath sounds at bases. ABDOMEN: Soft, non-tender, obese. Abdominal wall edema noted. Examination of lower extremities shows edema 2+ bilaterally. 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 LABS: Labs show sodium 134, potassium 4.6, serum creatinine 4.18 and BUN 63. ASSESSMENT: 1. Acute kidney injury, mostly cardiorenal, with progressive renal failure and persistent severe volume overload. We will proceed with dialysis. 2. Severe volume overload with significant edema, maintained on Lasix drip, not significantly improved. We will proceed with renal replacement therapy to help with ultrafiltration and fluid removal. 3. Anemia. No active bleeding noted at this time. Hemoglobin is 7.4. The patient is maintained on Aranesp. Iron saturation was 20% on 10/13/2019, which is not significantly low. 4. 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 Serologies are negative thus far. PLAN: Proceed with dialysis because of worsening renal failure and persistent severe volume overload. We will consult Vascular Surgery and plan for dialysis today and then again in a.m. I will give one dose of IV iron. Continue with the Aranesp for now. MMODL / IJN: [id number] /
--- NOTE | 2019-10-24 19:23 | XR ---
EXAMINATION TYPE: XR foot limited LT DATE OF EXAM: 10/24/2019 COMPARISON: NONE HISTORY: Pain TECHNIQUE: 2 views FINDINGS: There is soft tissue swelling of the forefoot. There is plantar calcaneal spurring. Metatar sals are intact. I see no fracture nor dislocation. There is some mild narrowing at the first MP join t. The toes appear intact. There is minor spur formation at the tarsometatarsal joints. IMPRESSION: Soft tissue swelling. No fracture seen.
[2019-10-24 20:12] LABS: Glucose,Whole Blood 192 mg/dL (75-99)
[2019-10-24] MEDS: MELATONIN 3 MG TABLET PO PRN (20:23)
[2019-10-24] MEDS: PIOGLITAZONE 30 MG TAB PO SCH (20:23)
--- NOTE | 2019-10-24 22:40 | P.PN ---
Subjective Progress Note Date: 10/24/19 Principal diagnosis: Acute UTI from cystitis Bradycardia This is a [address] Kristy Ortega. Patient was just at [facility] from October 08. Admitted there with a creatinine of 3.6. Prior to discharge a day ago creatinine was down to 3.2. Seen by Dr. Bocanegra. Renal ultrasound did not show any major abnormality. Corticomedullary differentiation was maintained. Patient came home and felt tired lethargic. Rundown. Appetite has been okay. Ford cold. She decided to come back in again. Patient has known diabetes. Ford to have diabetic nephropathy. Chronic stable medical conditions include diabetes, GERD, hypertension, hyperlipidemia, obstructive sleep apnea. Patient last labs here on September 04 were 2.93. Also found to be bradycardic. Patient does use a walker. Admitted with metabolic encephalopathy. Ambien and Xanax was discontinued. Patient also found to be hypothermic. Suma hugger given. Given IV fluids. 10/14-more awake today.. Answers questions better. Suma hugger in place. The 25% of breakfast and 75% of lunch. Laying in bed. Tired. 10/16/2019 Patient is currently sitting in the chair. Awake alert and oriented without seems to be confused. Blood pressure still elevated patient was started on Catapres patch and metoprolol has been discontinued due to bradycardia. Heart rate went up to 66 now. Laboratory data showed BUN 44 and creatinine 2.94 Potassium 5.4 bicarb is 21 magnesium 1.7 Patient had chest x-ray this morning showed bibasilar infiltrate and small effusion correlate for interstitial pneumonitis versus congestion. Underlying pneumonia in the differential diagnosis. Patient was given a dose of IV Lasix. VQ scan showed intermediate probability for pulmonary embolism. CT chest could not be done due to elevated creatinine level. Patient is currently requiring oxygen at 4 L via nasal cannula. Patient is not on home oxygen. No complaints of chest pain. No nausea vomiting or abdominal pain or diarrhea. No headache or dizziness. 10/17/2019 Patient is currently sitting in a chair seems fairly confused. Awake alert oriented 3. Still having shortness of breath and requiring oxygen at 4 L when as a cannula. Due to pleural effusion and vascular congestion patient was started on IV Lasix 40 mg twice daily. Patient is being continued on antibiotics for possible pneumonia. Patient had VQ scan showed moderate probability for PE and was started on therapeutic dose of Lovenox. Pulmonary was consulted for further evaluation and development of long-term anticoagulation. blood pressure is better controlled today. Heart rate improved to 70s. Nephrology and cardiology is on board. Pulmonary was consulted. 10/17/2017 Patient is currently sitting in the chair. Drowsy and lethargic. Otherwise no acute distress. Currently on oxygen via nasal cannula at 4 L. Patient is being continued on IV Lasix. Also on antibiotics in the form of azithromycin ceftriaxone for possible pneumonia and urinary tract infection. Laboratory showed sodium 140, potassium 6.1 and BUN 54 and creatinine 3.26. Magnesium 1.7 Patient was given dextrose and IV insulin for hyperkalemia. Follow-up potassium level. Pulmonary and nephrology is following. Chest x-ray showed increased bilateral airspace opacities and small bilateral pleural effusions versus 10/16/2019 10/19/2019 Patient is currently sitting in a chair. Slightly lethargic but awake alert oriented x3. Still having significant bilateral lower extremity edema and is being continued on Lasix. Change to Lasix drip now. No complaints of shortness of breath or chest pain. No fever no chills. Currently on antibiotics in the form of ceftriaxone and azithromycin. Denies any cough or sputum production. Laboratory showed WBC 5.3, hemoglobin 9.0 and platelets 155 Sodium 140, potassium 4.6, chloride 108, BUN 15 creatinine 3.15 Magnesium 1.6 Pulmonary nephrology is following. 10/20/19 Patient is currently sitting in a chair. She is drowsy but awake alert oriented 3. Slowly participating in physical therapy. Patient was started on Lasix drip. Breathing status is improving. Pulmonary is following. Nephrology is on board as well. 10/21/2019 Patient is currently lying in the bed comfortably. Shortness of breath is better. Patient is being continued on Lasix drip and also metolazone was added. Hemoglobin is 8.2 and creatinine level was 3.1 today. Patient has been afebrile. Currently being continued on hydralazine, amlodipine and Lasix for blood pressure control.. Beta blockers on hold due to bradycardia on admission. 10/22/2019 Patient is currently lying in the bed awake alert but more lethargic and also pain increasing confusion today. Patient has been afebrile. Laboratory data showed sodium 134, BUN 54 and creatinine 3.54 with slight increase in creatinine. Patient is currently on Lasix and metolazone was added yesterday. Nephrology is following. Patient is still having significant leg swelling and is being diuresed. Patient did complain of left foot swelling, redness and increasing pain and tenderness over the ankle area and possible developing cellulitis.. Patient completed antibiotic course for possible pneumonia. Antibiotics will be changed to Cefzil at this time. Patient is being followed by pulmonary and nephrology. PT OT will be continued. Follow-up CBC and BMP tomorrow. Review of systems: Was done for constitutional, cardiovascular, GI, pulmonary. relevant finding as above 10/23/2019 Patient is seen and evaluated in follow-up with no acute overnight issues. Patient lethargic although easily arousable. Patient her alert and oriented 2- 3. Nephrology following closely in discussing the possibility of hemodialysis. Patient does not want to have to do dialysis but states she understands this is a possibility. Patient currently remains on a Lasix drip at 10 mL's an hour with no real improvement in creatinine. Current creatinine is slightly elevated at 3.77 and BUN is 61. Hemoglobin is currently 7.9. Sodium is 134 potassium of 4.9. Blood sugars being closely monitored and maintained on sliding scale. Patient continues on IV antibiotics for the possibility of left lower extremity cellulitis and is being closely monitored. Patient continues to have some lower extremity edema although states has slightly improved. Patient denies any chest pain, shortness of breath, or palpitations. Patient is afebrile. No reports of nausea or vomiting and patient is tolerating diet. Pulmonary following also and patient continues on 3 L of oxygen via nasal cannula. Currently awaiting PT/OT evaluation. 10/24/2019 Patient is seen in follow up this morning and kidney functions continue to worsen and patient is currently maintained on a lasix drip. Patient creatinine is 4.18 with a bun of 63. Patient awaiting to receive dialysis catheter placemen t today. Nephrology following closely and Dr. Sheikh consulted. Patient denies any overnight issues. Patient is having some left foot discomfort and an xray was done showing soft tissue swelling otherwise no dislocation or fracture noted. Will order a uric acid level and repeat am labs. Patient continues to have generalized swelling and edema noted of the bilateral lower extremities. Review of systems: Constitutional: Reports fatigue, no reports of fevers or chills Cardiovascular: No reports of chest pain or palpitations Respiratory: No reports of shortness of breath, denies cough GI: no reports of nausea with no reports of vomiting : no reports of dysuria or retention Neurovascular: Reports weakness, no reports of numbness All medications have been reviewed. Objective - Vital Signs Vital signs: Vital Signs Temp 98.3 F 10/24/19 05:00 Pulse 76 10/24/19 05:00 Resp 20 10/24/19 05:00 BP 133/65 10/24/19 05:00 Pulse Ox 93 L 10/24/19 05:00 Intake & Output 10/23/19 10/24/19 10/24/19 18:59 06:59 18:59 Intake Total 408.833 664.333 Balance 408.833 664.333 Weight 91 kg 114 kg Intake: Intake, IV Titration 168.833 84.333 Amount Furosemide 100 mg In 168.833 84.333 Sodium Chloride 0.9% 90 ml @ 10 MG/HR 10 mls/hr IV .Q10H [facility] Rx#: [id number] Oral 240 580 Other: Voiding Method Indwelling Catheter Indwelling Catheter - Exam Patient is sitting up in the bed comfortably, no acute distress, awake alert and oriented 2. Mild confusion.. HEENT: Normocephalic. Neck is supple. Pupils reactive. Nostrils clear. Oral cavity is moist. Ears reveal no drainage. Neck reveals no JVD, carotid bruits, or thyromegaly. CHEST EXAMINATION: Trachea is central. Symmetrical expansion. Bibasilar diminished air entry and no rhonchi or wheezing. Lung greer clear to auscultation and percussion. CARDIAC: Normal S1, S2 with no gallops. No murmurs ABDOMEN: Soft. Bowel sounds normal. No organomegaly. No abdominal bruits. Extremities: 2+ bilateral edema. No clubbing or cyanosis. left foot discomfort and tenderness upon palpation Neurologically awake, alert, oriented x2-3 with well-coordinated movements. No focal deficits noted Skin: No rash or skin lesions. Psychiatric: Cooperative. Non-suicidal Musculoskeletal: No joint swelling or deformity. Normal range of motion. - Labs CBC & Chem 7: 10/24/19 06:45 10/24/19 06:45 Labs: Abnormal Lab Results - Last 24 Hours (Table) 10/23/19 10/23/19 10/23/19 Range/Units 05:48 11:14 17:06 RBC (3.80-5.40) m/uL Hgb (11.4-16.0) gm/dL Hct (34.0-46.0) % Lymphocytes # (1.0-4.8) k/uL Sodium (137-145) mmol/L BUN (7-17) mg/dL Creatinine (0.52-1.04) mg/dL Glucose (74-99) mg/dL POC Glucose (mg/dL) 224 H 251 H (75-99) mg/dL Calcium (8.4-10.2) mg/dL Hep Bs Antibody Reactive H (Non-Reactive) 10/23/19 10/24/19 10/24/19 Range/Units 19:24 06:45 06:45 RBC 2.63 L (3.80-5.40) m/uL Hgb 7.4 L (11.4-16.0) gm/dL Hct 23.7 L (34.0-46.0) % Lymphocytes # 0.5 L (1.0-4.8) k/uL Sodium 134 L (137-145) mmol/L BUN 63 H (7-17) mg/dL Creatinine 4.18 H (0.52-1.04) mg/dL Glucose 139 H (74-99) mg/dL POC Glucose (mg/dL) 184 H (75-99) mg/dL Calcium 8.3 L (8.4-10.2) mg/dL Hep Bs Antibody (Non-Reactive) 10/24/19 Range/Units 07:04 RBC (3.80-5.40) m/uL Hgb (11.4-16.0) gm/dL Hct (34.0-46.0) % Lymphocytes # (1.0-4.8) k/uL Sodium (137-145) mmol/L BUN (7-17) mg/dL Creatinine (0.52-1.04) mg/dL Glucose (74-99) mg/dL POC Glucose (mg/dL) 152 H (75-99) mg/dL Calcium (8.4-10.2) mg/dL Hep Bs Antibody (Non-Reactive) Assessment and Plan Assessment: -Acute hypoxic respiratory failure secondary to fluid overload and acute on chronic CHF with diastolic dysfunction. Patient currently remains on Lasix drip -Acute kidney injury secondary to ATN secondary to infection. Nephrology following and patient to undergo dialysis cath placement for hemodialysis. -Left lower extremity cellulitis around ankle area. Maintained on IV cefazolin -Significant bradycardia patient was on Toprol-XL 200 mg. on hold now. Heart rate improved now. -Hypertensive urgency. BP controlled now. -Acute UTI from cystitis -Intermediate probability for PE and VQ scan. CTA could not be done due to creatinine level. -Obesity BMI 32.5 -Depression otherwise specified -Metabolic encephalopathy could be from medications. Patient was on a large dose of Ambien. Cutback on the same.-Slow to respond -GERD -Essential hypertension -Diabetes mellitus type 2 -Diabetic nephropathy, CK D stage IV -Metabolic acidosis from kidney failure -Hypothermic-metabolic on Suma hugger, improved Plan: Continue with Lasix drip and metolazone due to significant lower extremity swelling. Continue with antibiotics. xray of the left foot shows soft tissue swe lling. Will obtain uric acid level. Was started on Lovenox 80 mg daily for possible pulmonary embolism. Bilateral lower extremity duplex scan negative DVT. changed to lovenox 40mg Sq now. Pulmonary is following. Continue to titrate blood pressure medications. Follow electrolytes, Accu-Cheks are being followed. On sodium bicarbonate. Repeat labs in the morning. Physical therapy to evaluate the patient. Patient will start hemodialysis once catheter is placed. Nephrology following. Due to multiple complex medical issues, prognosis is guarded. Further recommendations to follow.
[2019-10-25 06:57] LABS: Glucose,Whole Blood 155 mg/dL (75-99)
[2019-10-25] MEDS: FUROSEMIDE 10 MG/ML 10 ML VIAL IV SCH ×3 (07:41→23:21)
[2019-10-25] MEDS: INSULIN ASPART (NovoLOG) 100 UNIT/ML VIAL SQ SCH ×4 (07:41→20:36)
[2019-10-25] MEDS: CALCIUM ACETATE 667 MG TAB PO SCH ×3 (07:41→17:45)
[2019-10-25] MEDS: PANTOPRAZOLE 40 MG TABLET PO SCH (07:41)
[2019-10-25 08:02] LABS: Basophils % (A) 1 %; Eosinophils # (A) 0.2 k/uL (0-0.7); Eosinophils % (A) 5 %; HCT 24.8 % (34.0-46.0); HGB 7.7 gm/dL (11.4-16.0); Hypochromasia Moderate; Lymphocytes # (A) 0.7 k/uL (1.0-4.8); Lymphocytes % (A) 13 %; MCH 28.3 pg (25.0-35.0); MCV 91.3 fL (80.0-100.0); Mean Platelet Volume 7.9; Monocytes # (A) 0.4 k/uL (0-1.0); Monocytes % (A) 7 %; Neutrophils # (A) 3.5 k/uL (1.3-7.7); Neutrophils % (A) 71 %; Platelet Count 218 k/uL (150-450); RBC 2.72 m/uL (3.80-5.40); RDW 14.3 % (11.5-15.5)
[2019-10-25 08:18] LABS: Calcium 8.4 mg/dL (8.4-10.2); Potassium 5.1 mmol/L (3.5-5.1); Uric Acid 9.2 mg/dL (3.7-7.4)
[2019-10-25] MEDS: MAGNESIUM OXIDE 400 MG TAB PO SCH ×3 (09:25→20:36)
[2019-10-25] MEDS: hydrALAZINE HCL 50 MG TAB PO SCH ×4 (09:25→20:35)
[2019-10-25] MEDS: SODIUM BICARBONATE TAB 650 MG TAB PO SCH (09:25)
[2019-10-25 11:00] LABS: Glucose,Whole Blood 253 mg/dL (75-99)
[2019-10-25] MEDS: ENOXAPARIN 30 MG/0.3 ML SYRINGE SQ SCH (11:08)
[2019-10-25] MEDS: ASPIRIN 81 MG PO SCH (11:08)
[2019-10-25] MEDS: amLODIPine 10 MG TAB PO SCH (11:08)
[2019-10-25] MEDS: metOLazone 2.5 MG TAB PO SCH (11:08)
[2019-10-25] MEDS: MULTIVITAMINS, THERA 1 EACH TAB PO SCH (12:23)
[2019-10-25 13:48] LABS: C-ANCA <1:20 Titer (<1:20)
--- NOTE | 2019-10-25 15:25 | P.PN ---
Subjective Progress Note Date: 10/25/19 Principal diagnosis: Acute UTI from cystitis Bradycardia This is a [address] Kristy Ortega. Patient was just at [facility] from October 08. Admitted there with a creatinine of 3.6. Prior to discharge a day ago creatinine was down to 3.2. Seen by Dr. Bocanegra. Renal ultrasound did not show any major abnormality. Corticomedullary differentiation was maintained. Patient came home and felt tired lethargic. Rundown. Appetite has been okay. [place] cold. She decided to come back in again. Patient has known diabetes. [place] to have diabetic nephropathy. Chronic stable medical conditions include diabetes, GERD, hypertension, hyperlipidemia, obstructive sleep apnea. Patient last labs here on September 04 were 2.93. Also found to be bradycardic. Patient does use a walker. Admitted with metabolic encephalopathy. Ambien and Xanax was discontinued. Patient also found to be hypothermic. Suma hugger given. Given IV fluids. 10/14-more awake today.. Answers questions better. Suma hugger in place. The 25% of breakfast and 75% of lunch. Laying in bed. Tired. 10/16/2019 Patient is currently sitting in the chair. Awake alert and oriented without seems to be confused. Blood pressure still elevated patient was started on Catapres patch and metoprolol has been discontinued due to bradycardia. Heart rate went up to 66 now. Laboratory data showed BUN 44 and creatinine 2.94 Potassium 5.4 bicarb is 21 magnesium 1.7 Patient had chest x-ray this morning showed bibasilar infiltrate and small effusion correlate for interstitial pneumonitis versus congestion. Underlying pneumonia in the differential diagnosis. Patient was given a dose of IV Lasix. VQ scan showed intermediate probability for pulmonary embolism. CT chest could not be done due to elevated creatinine level. Patient is currently requiring oxygen at 4 L via nasal cannula. Patient is not on home oxygen. No complaints of chest pain. No nausea vomiting or abdominal pain or diarrhea. No headache or dizziness. 10/17/2019 Patient is currently sitting in a chair seems fairly confused. Awake alert oriented 3. Still having shortness of breath and requiring oxygen at 4 L when as a cannula. Due to pleural effusion and vascular congestion patient was started on IV Lasix 40 mg twice daily. Patient is being continued on antibiotics for possible pneumonia. Patient had VQ scan showed moderate probability for PE and was started on therapeutic dose of Lovenox. Pulmonary was consulted for further evaluation and development of long-term anticoagulation. blood pressure is better controlled today. Heart rate improved to 70s. Nephrology and cardiology is on board. Pulmonary was consulted. 10/17/2017 Patient is currently sitting in the chair. Drowsy and lethargic. Otherwise no acute distress. Currently on oxygen via nasal cannula at 4 L. Patient is being continued on IV Lasix. Also on antibiotics in the form of azithromycin ceftriaxone for possible pneumonia and urinary tract infection. Laboratory showed sodium 140, potassium 6.1 and BUN 54 and creatinine 3.26. Magnesium 1.7 Patient was given dextrose and IV insulin for hyperkalemia. Follow-up potassium level. Pulmonary and nephrology is following. Chest x-ray showed increased bilateral airspace opacities and small bilateral pleural effusions versus 10/16/2019 10/19/2019 Patient is currently sitting in a chair. Slightly lethargic but awake alert oriented x3. Still having significant bilateral lower extremity edema and is being continued on Lasix. Change to Lasix drip now. No complaints of shortness of breath or chest pain. No fever no chills. Currently on antibiotics in the form of ceftriaxone and azithromycin. Denies any cough or sputum production. Laboratory showed WBC 5.3, hemoglobin 9.0 and platelets 155 Sodium 140, potassium 4.6, chloride 108, BUN 15 creatinine 3.15 Magnesium 1.6 Pulmonary nephrology is following. 10/20/19 Patient is currently sitting in a chair. She is drowsy but awake alert oriented 3. Slowly participating in physical therapy. Patient was started on Lasix drip. Breathing status is improving. Pulmonary is following. Nephrology is on board as well. 10/21/2019 Patient is currently lying in the bed comfortably. Shortness of breath is better. Patient is being continued on Lasix drip and also metolazone was added. Hemoglobin is 8.2 and creatinine level was 3.1 today. Patient has been afebrile. Currently being continued on hydralazine, amlodipine and Lasix for blood pressure control.. Beta blockers on hold due to bradycardia on admission. 10/22/2019 Patient is currently lying in the bed awake alert but more lethargic and also pain increasing confusion today. Patient has been afebrile. Laboratory data showed sodium 134, BUN 54 and creatinine 3.54 with slight increase in creatinine. Patient is currently on Lasix and metolazone was added yesterday. Nephrology is following. Patient is still having significant leg swelling and is being diuresed. Patient did complain of left foot swelling, redness and increasing pain and tenderness over the ankle area and possible developing cellulitis.. Patient completed antibiotic course for possible pneumonia. Antibiotics will be changed to Cefzil at this time. Patient is being followed by pulmonary and nephrology. PT OT will be continued. Follow-up CBC and BMP tomorrow. Review of systems: Was done for constitutional, cardiovascular, GI, pulmonary. relevant finding as above 10/23/2019 Patient is seen and evaluated in follow-up with no acute overnight issues. Patient lethargic although easily arousable. Patient her alert and oriented 2- 3. Nephrology following closely in discussing the possibility of hemodialysis. Patient does not want to have to do dialysis but states she understands this is a possibility. Patient currently remains on a Lasix drip at 10 mL's an hour with no real improvement in creatinine. Current creatinine is slightly elevated at 3.77 and BUN is 61. Hemoglobin is currently 7.9. Sodium is 134 potassium of 4.9. Blood sugars being closely monitored and maintained on sliding scale. Patient continues on IV antibiotics for the possibility of left lower extremity cellulitis and is being closely monitored. Patient continues to have some lower extremity edema although states has slightly improved. Patient denies any chest pain, shortness of breath, or palpitations. Patient is afebrile. No reports of nausea or vomiting and patient is tolerating diet. Pulmonary following also and patient continues on 3 L of oxygen via nasal cannula. Currently awaiting PT/OT evaluation. 10/24/2019 Patient is seen in follow up this morning and kidney functions continue to worsen and patient is currently maintained on a lasix drip. Patient creatinine is 4.18 with a bun of 63. Patient awaiting to receive dialysis catheter placemen t today. Nephrology following closely and Dr. Sheikh consulted. Patient denies any overnight issues. Patient is having some left foot discomfort and an xray was done showing soft tissue swelling otherwise no dislocation or fracture noted. Will order a uric acid level and repeat am labs. Patient continues to have generalized swelling and edema noted of the bilateral lower extremities. Review of systems: Constitutional: Reports fatigue, no reports of fevers or chills Cardiovascular: No reports of chest pain or palpitations Respiratory: No reports of shortness of breath, denies cough GI: no reports of nausea with no reports of vomiting : no reports of dysuria or retention Neurovascular: Reports weakness, no reports of numbness All medications have been reviewed. 10/25/2019 Patient is seen and evaluated in follow-up currently receiving hemodialysis. Patient is quite lethargic although arousable. Patient continues to be weak and will have PT/OT evaluate the patient. Patient may need possible ECF placement for continued rehab. Case management and social security assessor following. Arrangements need to be made for outpatient dialysis and nephrology following closely. Patient will need permanent catheter placement. Creatinine today is 4.34 prior to hemodialysis with a potassium of 5.1 and sodium is 134. Will repeat a.m. labs and monitor closely. Currently patient denies any chest pain, shortness of breath, or palpitations. Patient is afebrile. No reports of nausea or vomiting patient is tolerating diet. Patient continues to have some fatigue and weakness noted and will await PT/OT notes. Objective - Vital Signs Vital signs: Vital Signs Temp 97.4 F L 10/25/19 05:00 Pulse 75 10/25/19 05:00 Resp 20 10/25/19 05:00 BP 156/63 10/25/19 05:00 Pulse Ox 96 10/25/19 05:00 Intake & Output 10/24/19 10/25/19 10/25/19 18:59 06:59 18:59 Intake Total 50 990 Output Total 1200 800 Balance -1150 190 Intake: IV 50 Oral 990 Output: Urine 1200 800 Other: Voiding Method Indwelling Catheter Indwelling Catheter Indwelling Catheter # Bowel Movements 1 - Exam Patient is sitting up in the bed comfortably, no acute distress, lethargic although arousable, alert and oriented 2. Mild confusion.. HEENT: Normocephalic. Neck is supple. Pupils reactive. Nostrils clear. Oral cavity is moist. Ears reveal no drainage. Neck reveals no JVD, carotid bruits, or thyromegaly. CHEST EXAMINATION: Trachea is central. Symmetrical expansion. Bibasilar diminished air entry and no rhonchi or wheezing. Lung greer clear to auscultation and percussion. CARDIAC: Normal S1, S2 with no gallops. No murmurs ABDOMEN: Soft. Bowel sounds normal. No organomegaly. No abdominal bruits. Extremities: 2+ bilateral edema. No clubbing or cyanosis. left ankle discomfort and tenderness upon palpation, slightly improved Neurologically awake, alert, oriented x2-3 with well-coordinated movements. No focal deficits noted Skin: No rash or skin lesions. Psychiatric: Cooperative. Non-suicidal Musculoskeletal: No joint swelling or deformity. Normal range of motion. - Labs CBC & Chem 7: 10/25/19 07:26 10/25/19 07:26 Labs: Abnormal Lab Results - Last 24 Hours (Table) 10/24/19 10/24/19 10/24/19 Range/Units 11:55 16:53 20:03 RBC (3.80-5.40) m/uL Hgb (11.4-16.0) gm/dL Hct (34.0-46.0) % Lymphocytes # (1.0-4.8) k/uL Sodium (137-145) mmol/L Chloride (98-107) mmol/L BUN (7-17) mg/dL Creatinine (0.52-1.04) mg/dL Glucose (74-99) mg/dL POC Glucose (mg/dL) 172 H 188 H 192 H (75-99) mg/dL Uric Acid (3.7-7.4) mg/dL 10/25/19 10/25/19 10/25/19 Range/Units 06:56 07:26 07:26 RBC 2.72 L (3.80-5.40) m/uL Hgb 7.7 L (11.4-16.0) gm/dL Hct 24.8 L (34.0-46.0) % Lymphocytes # 0.7 L (1.0-4.8) k/uL Sodium 134 L (137-145) mmol/L Chloride 97 L (98-107) mmol/L BUN 68 H (7-17) mg/dL Creatinine 4.34 H (0.52-1.04) mg/dL Glucose 136 H (74-99) mg/dL POC Glucose (mg/dL) 155 H (75-99) mg/dL Uric Acid 9.2 H (3.7-7.4) mg/dL 10/25/19 Range/Units 10:58 RBC (3.80-5.40) m/uL Hgb (11.4-16.0) gm/dL Hct (34.0-46.0) % Lymphocytes # (1.0-4.8) k/uL Sodium (137-145) mmol/L Chloride (98-107) mmol/L BUN (7-17) mg/dL Creatinine (0.52-1.04) mg/dL Glucose (74-99) mg/dL POC Glucose (mg/dL) 253 H (75-99) mg/dL Uric Acid (3.7-7.4) mg/dL Assessment and Plan Assessment: -Acute hypoxic respiratory failure secondary to fluid overload and acute on chronic CHF with diastolic dysfunction. Lasix drip discontinued and patient is on IV Lasix twice daily and dialysis daily -Acute kidney injury secondary to ATN secondary to infection. Nephrology following and patient is currently receiving hemodialysis -Left lower extremity cellulitis around ankle area. Maintained on IV cefazolin -Significant bradycardia patient was on Toprol-XL 200 mg. on hold now. Heart rate improved now. -Hypertensive urgency. BP controlled now. -Acute UTI from cystitis -Intermediate probability for PE and VQ scan. CTA could not be done due to creatinine level. -Obesity BMI 32.5 -Depression otherwise specified -Metabolic encephalopathy could be from medications. Patient was on a large dose of Ambien. Cutback on the same.-Slow to respond -GERD -Essential hypertension -Diabetes mellitus type 2 -Diabetic nephropathy, CK D stage IV -Metabolic acidosis from kidney failure -Hypothermic-metabolic on Suma hugger, improved Plan: Continue current medications, management, and symptomatic treatment. Continue with IV antibiotics in patients left lower extremity ankle area is improving with minimal erythema noted. Pulmonary following along with nephrology. Case management and social work also following and will be making a rrangements for hemodialysis in the outpatient setting and possibility of ECF placement for continued rehab. PT/OT therapy to evaluate the patient. Continue to monitor blood sugars closely and will treat accordingly with sliding scale. Will repeat a.m. labs. Further recommendations to follow.
[2019-10-25 17:24] LABS: Glucose,Whole Blood 157 mg/dL (75-99)
[2019-10-25 17:29] LABS: Glucose,Whole Blood 92 mg/dL (75-99)
[2019-10-25] MEDS: PIOGLITAZONE 30 MG TAB PO SCH (20:35)
[2019-10-25 20:37] LABS: Glucose,Whole Blood 192 mg/dL (75-99)
--- NOTE | 2019-10-25 20:52 | PN ---
PROGRESS NOTE Patient is seen for followup for acute kidney injury on top of chronic kidney disease and severe volume overload. She has been started on dialysis. Patient received her first treatment today. She tolerated it well. We removed close to 2 L. PHYSICAL EXAMINATION: On examination today, blood pressure was 159/67, heart rate 77 per minute. She is afebrile. EXAMINATION OF THE HEART: S1 and S2. EXAMINATION OF LUNGS: Bilateral breath sounds are heard. ABDOMEN: Soft, non-tender, obese. Examination of lower extremities shows edema 3+ bilaterally. GLASS CLEANING MACHINE TENDER exam is grossly intact. LABS: Labs show sodium 134, potassium 5.1, chloride 97, BUN 68, creatinine 4.34, hemoglobin 7.7 g/dL. ASSESSMENT: 1. Chronic kidney disease, NKF stage IV, secondary to diabetic nephropathy with acute kidney injury, mostly cardiorenal versus progression of underlying kidney disease; currently started on dialysis. Patient received her first treatment today and we will plan for another treatment tomorrow. 2. Anemia with no active bleeding noted, maintained on Aranesp; mostly anemia of chronic disease. 3. Severe volume overload. Maintain daily dialysis for now. Arrange for outpatient chair time. 4. Proteinuria, mostly secondary to diabetic nephropathy. Ejection fraction 55% to 60%. Right ventricle is moderately enlarged. PLAN: Maintain daily dialysis for now and monitor renal function and volume status as outpatient. MMODL / IJN: [id number] /
[2019-10-25] MEDS: HYDROcodone/APAP 5-325MG 1 EACH TAB PO PRN (21:42)
[2019-10-25] MEDS: MELATONIN 3 MG TABLET PO PRN (21:43)
[2019-10-26] MEDS: HYDROcodone/APAP 5-325MG 1 EACH TAB PO PRN ×2 (03:12→12:31)
[2019-10-26 07:15] LABS: Glucose,Whole Blood 142 mg/dL (75-99)
[2019-10-26] MEDS: MULTIVITAMINS, THERA 1 EACH TAB PO SCH (09:19)
[2019-10-26] MEDS: amLODIPine 10 MG TAB PO SCH (09:19)
[2019-10-26] MEDS: CALCIUM ACETATE 667 MG TAB PO SCH ×3 (09:19→18:22)
[2019-10-26] MEDS: MAGNESIUM OXIDE 400 MG TAB PO SCH ×3 (09:19→22:12)
[2019-10-26] MEDS: ASPIRIN 81 MG PO SCH (09:19)
[2019-10-26] MEDS: PANTOPRAZOLE 40 MG TABLET PO SCH (09:19)
[2019-10-26] MEDS: metOLazone 2.5 MG TAB PO SCH (09:19)
[2019-10-26] MEDS: hydrALAZINE HCL 50 MG TAB PO SCH ×4 (09:19→22:12)
[2019-10-26] MEDS: FUROSEMIDE 10 MG/ML 10 ML VIAL IV SCH ×2 (09:20→18:22)
[2019-10-26] MEDS: INSULIN ASPART (NovoLOG) 100 UNIT/ML VIAL SQ SCH ×4 (09:20→21:16)
[2019-10-26] MEDS: ENOXAPARIN 30 MG/0.3 ML SYRINGE SQ SCH (09:20)
[2019-10-26 10:39] LABS: Calcium 8.5 mg/dL (8.4-10.2); Potassium 5.2 mmol/L (3.5-5.1)
[2019-10-26 11:26] LABS: Glucose,Whole Blood 168 mg/dL (75-99)
--- NOTE | 2019-10-26 16:53 | PN ---
PROGRESS NOTE Patient is seen for followup for acute kidney injury on top of chronic kidney disease. Patient is maintained on hemodialysis. She will be maintained on daily dialysis for now. PHYSICAL EXAMINATION: On examination, blood pressure was 159/69, heart rate 80 per minute. Patient is afebrile. EXAMINATION OF THE HEART: S1 and S2. EXAMINATION OF LUNGS: Bilateral breath sounds are heard. ABDOMEN: Soft, obese. Examination of lower extremities shows edema 3+ bilaterally. STARTING SHEET TANK OPERATOR exam is grossly intact. LABS: Labs show sodium 133, potassium 5.2, chloride 98, BUN 48, creatinine 3.43. ASSESSMENT: 1. Acute kidney injury on top of chronic kidney disease, maintained on hemodialysis, started on dialysis mostly for continued severe volume overload. The patient was maintained on Lasix drip, which is now discontinued, and she is currently maintained on IV Lasix. 2. Chronic kidney disease, stage 4, secondary to diabetic nephropathy with nephrotic- range proteinuria. Serologies were negative. 3. Hypertension, currently uncontrolled. Expect further improvement with improved volume status. The patient is maintained on Norvasc, clonidine patch, hydralazine. I will add NICOLE inhibitors, since she will be maintained on dialysis. 4. Chronic kidney disease mineral bone disorder, maintained on PhosLo. PLAN: Maintain daily dialysis for now. Add lisinopril for blood pressure. Medications will likely need to be adjusted once volume status improves with improvement in blood pressure as well. MMODL / IJN: [id number] /
[2019-10-26 17:24] LABS: Glucose,Whole Blood 203 mg/dL (75-99)
[2019-10-26] MEDS: PIOGLITAZONE 30 MG TAB PO SCH (18:22)
[2019-10-26] MEDS: lisinopriL 10 MG TAB PO SCH (18:41)
[2019-10-26 20:26] LABS: Glucose,Whole Blood 161 mg/dL (75-99)
[2019-10-27] MEDS: FUROSEMIDE 10 MG/ML 10 ML VIAL IV SCH ×4 (00:49→23:46)
[2019-10-27 07:08] LABS: Glucose,Whole Blood 161 mg/dL (75-99)
--- NOTE | 2019-10-27 08:19 | P.PN ---
Subjective Progress Note Date: 10/26/19 Principal diagnosis: Acute UTI from cystitis Bradycardia This is a [address] Kristy Ortega. Patient was just at [facility] from October 08. Admitted there with a creatinine of 3.6. Prior to discharge a day ago creatinine was down to 3.2. Seen by Dr. Bocanegra. Renal ultrasound did not show any major abnormality. Corticomedullary differentiation was maintained. Patient came home and felt tired lethargic. Rundown. Appetite has been okay. [place] cold. She decided to come back in again. Patient has known diabetes. [place] to have diabetic nephropathy. Chronic stable medical conditions include diabetes, GERD, hypertension, hyperlipidemia, obstructive sleep apnea. Patient last labs here on September 04 were 2.93. Also found to be bradycardic. Patient does use a walker. Admitted with metabolic encephalopathy. Ambien and Xanax was discontinued. Patient also found to be hypothermic. Suma hugger given. Given IV fluids. 10/14-more awake today.. Answers questions better. Suma hugger in place. The 25% of breakfast and 75% of lunch. Laying in bed. Tired. 10/16/2019 Patient is currently sitting in the chair. Awake alert and oriented without seems to be confused. Blood pressure still elevated patient was started on Catapres patch and metoprolol has been discontinued due to bradycardia. Heart rate went up to 66 now. Laboratory data showed BUN 44 and creatinine 2.94 Potassium 5.4 bicarb is 21 magnesium 1.7 Patient had chest x-ray this morning showed bibasilar infiltrate and small effusion correlate for interstitial pneumonitis versus congestion. Underlying pneumonia in the differential diagnosis. Patient was given a dose of IV Lasix. VQ scan showed intermediate probability for pulmonary embolism. CT chest could not be done due to elevated creatinine level. Patient is currently requiring oxygen at 4 L via nasal cannula. Patient is not on home oxygen. No complaints of chest pain. No nausea vomiting or abdominal pain or diarrhea. No headache or dizziness. 10/17/2019 Patient is currently sitting in a chair seems fairly confused. Awake alert oriented 3. Still having shortness of breath and requiring oxygen at 4 L when as a cannula. Due to pleural effusion and vascular congestion patient was started on IV Lasix 40 mg twice daily. Patient is being continued on antibiotics for possible pneumonia. Patient had VQ scan showed moderate probability for PE and was started on therapeutic dose of Lovenox. Pulmonary was consulted for further evaluation and development of long-term anticoagulation. blood pressure is better controlled today. Heart rate improved to 70s. Nephrology and cardiology is on board. Pulmonary was consulted. 10/17/2017 Patient is currently sitting in the chair. Drowsy and lethargic. Otherwise no acute distress. Currently on oxygen via nasal cannula at 4 L. Patient is being continued on IV Lasix. Also on antibiotics in the form of azithromycin ceftriaxone for possible pneumonia and urinary tract infection. Laboratory showed sodium 140, potassium 6.1 and BUN 54 and creatinine 3.26. Magnesium 1.7 Patient was given dextrose and IV insulin for hyperkalemia. Follow-up potassium level. Pulmonary and nephrology is following. Chest x-ray showed increased bilateral airspace opacities and small bilateral pleural effusions versus 10/16/2019 10/19/2019 Patient is currently sitting in a chair. Slightly lethargic but awake alert oriented x3. Still having significant bilateral lower extremity edema and is being continued on Lasix. Change to Lasix drip now. No complaints of shortness of breath or chest pain. No fever no chills. Currently on antibiotics in the form of ceftriaxone and azithromycin. Denies any cough or sputum production. Laboratory showed WBC 5.3, hemoglobin 9.0 and platelets 155 Sodium 140, potassium 4.6, chloride 108, BUN 15 creatinine 3.15 Magnesium 1.6 Pulmonary nephrology is following. 10/20/19 Patient is currently sitting in a chair. She is drowsy but awake alert oriented 3. Slowly participating in physical therapy. Patient was started on Lasix drip. Breathing status is improving. Pulmonary is following. Nephrology is on board as well. 10/21/2019 Patient is currently lying in the bed comfortably. Shortness of breath is better. Patient is being continued on Lasix drip and also metolazone was added. Hemoglobin is 8.2 and creatinine level was 3.1 today. Patient has been afebrile. Currently being continued on hydralazine, amlodipine and Lasix for blood pressure control.. Beta blockers on hold due to bradycardia on admission. 10/22/2019 Patient is currently lying in the bed awake alert but more lethargic and also pain increasing confusion today. Patient has been afebrile. Laboratory data showed sodium 134, BUN 54 and creatinine 3.54 with slight increase in creatinine. Patient is currently on Lasix and metolazone was added yesterday. Nephrology is following. Patient is still having significant leg swelling and is being diuresed. Patient did complain of left foot swelling, redness and increasing pain and tenderness over the ankle area and possible developing cellulitis.. Patient completed antibiotic course for possible pneumonia. Antibiotics will be changed to Cefzil at this time. Patient is being followed by pulmonary and nephrology. PT OT will be continued. Follow-up CBC and BMP tomorrow. Review of systems: Was done for constitutional, cardiovascular, GI, pulmonary. relevant finding as above 10/23/2019 Patient is seen and evaluated in follow-up with no acute overnight issues. Patient lethargic although easily arousable. Patient her alert and oriented 2- 3. Nephrology following closely in discussing the possibility of hemodialysis. Patient does not want to have to do dialysis but states she understands this is a possibility. Patient currently remains on a Lasix drip at 10 mL's an hour with no real improvement in creatinine. Current creatinine is slightly elevated at 3.77 and BUN is 61. Hemoglobin is currently 7.9. Sodium is 134 potassium of 4.9. Blood sugars being closely monitored and maintained on sliding scale. Patient continues on IV antibiotics for the possibility of left lower extremity cellulitis and is being closely monitored. Patient continues to have some lower extremity edema although states has slightly improved. Patient denies any chest pain, shortness of breath, or palpitations. Patient is afebrile. No reports of nausea or vomiting and patient is tolerating diet. Pulmonary following also and patient continues on 3 L of oxygen via nasal cannula. Currently awaiting PT/OT evaluation. 10/24/2019 Patient is seen in follow up this morning and kidney functions continue to worsen and patient is currently maintained on a lasix drip. Patient creatinine is 4.18 with a bun of 63. Patient awaiting to receive dialysis catheter placemen t today. Nephrology following closely and Dr. Sheikh consulted. Patient denies any overnight issues. Patient is having some left foot discomfort and an xray was done showing soft tissue swelling otherwise no dislocation or fracture noted. Will order a uric acid level and repeat am labs. Patient continues to have generalized swelling and edema noted of the bilateral lower extremities. Review of systems: Constitutional: Reports fatigue, no reports of fevers or chills Cardiovascular: No reports of chest pain or palpitations Respiratory: No reports of shortness of breath, denies cough GI: no reports of nausea with no reports of vomiting : no reports of dysuria or retention Neurovascular: Reports weakness, no reports of numbness All medications have been reviewed. 10/25/2019 Patient is seen and evaluated in follow-up currently receiving hemodialysis. Patient is quite lethargic although arousable. Patient continues to be weak and will have PT/OT evaluate the patient. Patient may need possible ECF placement for continued rehab. Case management and social sciences department chair following. Arrangements need to be made for outpatient dialysis and nephrology following closely. Patient will need permanent catheter placement. Creatinine today is 4.34 prior to hemodialysis with a potassium of 5.1 and sodium is 134. Will repeat a.m. labs and monitor closely. Currently patient denies any chest pain, shortness of breath, or palpitations. Patient is afebrile. No reports of nausea or vomiting patient is tolerating diet. Patient continues to have some fatigue and weakness noted and will await PT/OT notes. 10/26/2019 Patient is seen and evaluated in follow-up awaiting to receive dialysis as she is currently on daily dialysis treatments. Nephrology following closely. Creatinine today slightly improved at 3.43 with a BUN of 48. Potassium is 5.2. Will repeat a.m. labs. Case management and social work following as patient will be going to [facility] once stabilized and discharged for continued PT/OT therapy as patient continues to be weak requiring assistance and gait dysfunction noted. Patient is tolerating diet with no reports of nausea or vomiting noted. Patient continues to have generalized pain of the lower extremities and swelling of bilateral lower extremities continues although is slightly improved from yesterday. Patient remains on IV Lasix push and will continue at this time. Patient is denying any chest pain, worsening shortness of breath, or palpitations. She remains afebrile. Case management has made arrangements for Wednesday//Wednesday dialysis treatments in the outpatient setting. Objective - Vital Signs Vital signs: Vital Signs Temp 98.2 F 10/26/19 11:38 Pulse 80 10/26/19 11:38 Resp 17 10/26/19 11:38 BP 159/69 10/26/19 11:38 Pulse Ox 93 L 10/26/19 11:38 Intake & Output 10/25/19 10/26/19 10/26/19 18:59 06:59 18:59 Intake Total 450 Output Total 750 900 800 Balance -750 -450 -800 Weight 111 kg 111 kg Intake: Intake, IV Titration 50 Amount ceFAZolin 1,000 mg In 50 Sodium Chloride 0.9% 50 ml @ 100 mls/hr IVPB Q12H [facility] Rx#:[id number] Oral 400 Output: Urine 750 900 800 Uretheral ([place]) 750 900 Other: Voiding Method Indwelling Catheter Indwelling Catheter Indwelling Catheter - Exam Patient is sitting up in the bed comfortably, no acute distress, lethargic although arousable, alert and oriented 2. Mild confusion.. HEENT: Normocephalic. Neck is supple. Pupils reactive. Nostrils clear. Oral cavity is moist. Ears reveal no drainage. Neck reveals no JVD, carotid bruits, or thyromegaly. CHEST EXAMINATION: Trachea is central. Symmetrical expansion. Bibasilar diminished air entry and no rhonchi or wheezing. Lung greer clear to auscultation and percussion. CARDIAC: Normal S1, S2 with no gallops. No murmurs ABDOMEN: Soft. Bowel sounds normal. No organomegaly. No abdominal bruits. Extremities: 2+ bilateral edema. No clubbing or cyanosis. left ankle discomfort and tenderness upon palpation, slightly improved Neurologically awake, alert, oriented x2-3 with well-coordinated movements. No focal deficits noted Skin: No rash or skin lesions. Psychiatric: Cooperative. Non-suicidal Musculoskeletal: No joint swelling or deformity. Normal range of motion. - Labs CBC & Chem 7: 10/25/19 07:26 10/26/19 09:30 Labs: Abnormal Lab Results - Last 24 Hours (Table) 10/25/19 10/25/19 10/26/19 Range/Units 17:22 20:36 07:11 Sodium (137-145) mmol/L Potassium (3.5-5.1) mmol/L BUN (7-17) mg/dL Creatinine (0.52-1.04) mg/dL Glucose (74-99) mg/dL POC Glucose (mg/dL) 157 H 192 H 142 H (75-99) mg/dL 10/26/19 10/26/19 Range/Units 09:30 11:25 Sodium 133 L (137-145) mmol/L Potassium 5.2 H (3.5-5.1) mmol/L BUN 48 H (7-17) mg/dL Creatinine 3.43 H (0.52-1.04) mg/dL Glucose 179 H (74-99) mg/dL POC Glucose (mg/dL) 168 H (75-99) mg/dL Assessment and Plan Assessment: -Acute hypoxic respiratory failure secondary to fluid overload and acute on chronic CHF with diastolic dysfunction. Patient is maintained on 60 mg of Lasix every 8 hours -Acute kidney injury secondary to ATN secondary to infection. Nephrology following and patient is currently receiving hemodialysis -Left lower extremity cellulitis around ankle area. Maintained on IV cefazolin -Significant bradycardia patient was on Toprol-XL 200 mg. on hold now. Heart rate improved -Hypertensive urgency. BP controlled now. -Acute UTI from cystitis -Intermediate probability for PE and VQ scan. CTA could not be done due to creatinine level. -Obesity BMI 32.5 -Depression otherwise specified -Metabolic encephalopathy could be from medications. Patient was on a large dose of Ambien. Cutback on the same.-Slow to respond -GERD -Essential hypertension -Diabetes mellitus type 2 -Diabetic nephropathy, CK D stage IV -Metabolic acidosis from kidney failure -Hypothermic-metabolic, improved Plan: Continue current medications, management, and symptomatic treatment. Continue with IV antibiotics in patients left lower extremity ankle area is improving with minimal erythema noted. Pulmonary following along with nephrol judy. Case management and social work also following and will be making arrangements for hemodialysis in the outpatient setting and possibility of ECF placement for continued rehab. PT/OT therapy to evaluate the patient. Continue to monitor blood sugars closely and will treat accordingly with sliding scale. Will repeat a.m. labs. Further recommendations to follow.
[2019-10-27] MEDS: ENOXAPARIN 30 MG/0.3 ML SYRINGE SQ SCH (09:11)
[2019-10-27] MEDS: metOLazone 2.5 MG TAB PO SCH (09:12)
[2019-10-27] MEDS: INSULIN ASPART (NovoLOG) 100 UNIT/ML VIAL SQ SCH ×4 (09:13→21:25)
[2019-10-27] MEDS: CALCIUM ACETATE 667 MG TAB PO SCH ×3 (09:13→17:46)
[2019-10-27] MEDS: lisinopriL 10 MG TAB PO SCH (09:14)
[2019-10-27] MEDS: amLODIPine 10 MG TAB PO SCH (09:14)
[2019-10-27] MEDS: PANTOPRAZOLE 40 MG TABLET PO SCH (09:14)
[2019-10-27] MEDS: ASPIRIN 81 MG PO SCH (09:14)
[2019-10-27] MEDS: MAGNESIUM OXIDE 400 MG TAB PO SCH ×3 (09:14→21:26)
[2019-10-27] MEDS: hydrALAZINE HCL 50 MG TAB PO SCH ×4 (09:14→21:26)
[2019-10-27] MEDS: MULTIVITAMINS, THERA 1 EACH TAB PO SCH (09:14)
[2019-10-27 09:24] LABS: Basophils % (A) 1 %; Eosinophils # (A) 0.1 k/uL (0-0.7); Eosinophils % (A) 2 %; HCT 27.7 % (34.0-46.0); HGB 8.8 gm/dL (11.4-16.0); Hypochromasia Slight; Lymphocytes # (A) 0.5 k/uL (1.0-4.8); Lymphocytes % (A) 8 %; MCH 28.2 pg (25.0-35.0); MCHC 31.8 g/dL (31.0-37.0); MCV 88.6 fL (80.0-100.0); Mean Platelet Volume 7.6; Monocytes # (A) 0.3 k/uL (0-1.0); Monocytes % (A) 5 %; Neutrophils # (A) 5.2 k/uL (1.3-7.7); Neutrophils % (A) 82 %; Platelet Count 254 k/uL (150-450); RBC 3.13 m/uL (3.80-5.40); RDW 14.1 % (11.5-15.5); WBC 6.3 k/uL (3.8-10.6)
[2019-10-27 09:33] LABS: Potassium 4.5 mmol/L (3.5-5.1)
[2019-10-27 11:23] LABS: Glucose,Whole Blood 247 mg/dL (75-99)
--- NOTE | 2019-10-27 14:45 | P.PN ---
Subjective Progress Note Date: 10/27/19 Principal diagnosis: Acute UTI from cystitis Bradycardia This is a [address] Kristy Ortega. Patient was just at [facility] from October 08. Admitted there with a creatinine of 3.6. Prior to discharge a day ago creatinine was down to 3.2. Seen by Dr. Bocanegra. Renal ultrasound did not show any major abnormality. Corticomedullary differentiation was maintained. Patient came home and felt tired lethargic. Rundown. Appetite has been okay. Bath cold. She decided to come back in again. Patient has known diabetes. Bath to have diabetic nephropathy. Chronic stable medical conditions include diabetes, GERD, hypertension, hyperlipidemia, obstructive sleep apnea. Patient last labs here on September 04 were 2.93. Also found to be bradycardic. Patient does use a walker. Admitted with metabolic encephalopathy. Ambien and Xanax was discontinued. Patient also found to be hypothermic. Suma hugger given. Given IV fluids. 10/14-more awake today.. Answers questions better. Suma hugger in place. The 25% of breakfast and 75% of lunch. Laying in bed. Tired. 10/16/2019 Patient is currently sitting in the chair. Awake alert and oriented without seems to be confused. Blood pressure still elevated patient was started on Catapres patch and metoprolol has been discontinued due to bradycardia. Heart rate went up to 66 now. Laboratory data showed BUN 44 and creatinine 2.94 Potassium 5.4 bicarb is 21 magnesium 1.7 Patient had chest x-ray this morning showed bibasilar infiltrate and small effusion correlate for interstitial pneumonitis versus congestion. Underlying pneumonia in the differential diagnosis. Patient was given a dose of IV Lasix. VQ scan showed intermediate probability for pulmonary embolism. CT chest could not be done due to elevated creatinine level. Patient is currently requiring oxygen at 4 L via nasal cannula. Patient is not on home oxygen. No complaints of chest pain. No nausea vomiting or abdominal pain or diarrhea. No headache or dizziness. 10/17/2019 Patient is currently sitting in a chair seems fairly confused. Awake alert oriented 3. Still having shortness of breath and requiring oxygen at 4 L when as a cannula. Due to pleural effusion and vascular congestion patient was started on IV Lasix 40 mg twice daily. Patient is being continued on antibiotics for possible pneumonia. Patient had VQ scan showed moderate probability for PE and was started on therapeutic dose of Lovenox. Pulmonary was consulted for further evaluation and development of long-term anticoagulation. blood pressure is better controlled today. Heart rate improved to 70s. Nephrology and cardiology is on board. Pulmonary was consulted. 10/17/2017 Patient is currently sitting in the chair. Drowsy and lethargic. Otherwise no acute distress. Currently on oxygen via nasal cannula at 4 L. Patient is being continued on IV Lasix. Also on antibiotics in the form of azithromycin ceftriaxone for possible pneumonia and urinary tract infection. Laboratory showed sodium 140, potassium 6.1 and BUN 54 and creatinine 3.26. Magnesium 1.7 Patient was given dextrose and IV insulin for hyperkalemia. Follow-up potassium level. Pulmonary and nephrology is following. Chest x-ray showed increased bilateral airspace opacities and small bilateral pleural effusions versus 10/16/2019 10/19/2019 Patient is currently sitting in a chair. Slightly lethargic but awake alert oriented x3. Still having significant bilateral lower extremity edema and is being continued on Lasix. Change to Lasix drip now. No complaints of shortness of breath or chest pain. No fever no chills. Currently on antibiotics in the form of ceftriaxone and azithromycin. Denies any cough or sputum production. Laboratory showed WBC 5.3, hemoglobin 9.0 and platelets 155 Sodium 140, potassium 4.6, chloride 108, BUN 15 creatinine 3.15 Magnesium 1.6 Pulmonary nephrology is following. 10/20/19 Patient is currently sitting in a chair. She is drowsy but awake alert oriented 3. Slowly participating in physical therapy. Patient was started on Lasix drip. Breathing status is improving. Pulmonary is following. Nephrology is on board as well. 10/21/2019 Patient is currently lying in the bed comfortably. Shortness of breath is better. Patient is being continued on Lasix drip and also metolazone was added. Hemoglobin is 8.2 and creatinine level was 3.1 today. Patient has been afebrile. Currently being continued on hydralazine, amlodipine and Lasix for blood pressure control.. Beta blockers on hold due to bradycardia on admission. 10/22/2019 Patient is currently lying in the bed awake alert but more lethargic and also pain increasing confusion today. Patient has been afebrile. Laboratory data showed sodium 134, BUN 54 and creatinine 3.54 with slight increase in creatinine. Patient is currently on Lasix and metolazone was added yesterday. Nephrology is following. Patient is still having significant leg swelling and is being diuresed. Patient did complain of left foot swelling, redness and increasing pain and tenderness over the ankle area and possible developing cellulitis.. Patient completed antibiotic course for possible pneumonia. Antibiotics will be changed to Cefzil at this time. Patient is being followed by pulmonary and nephrology. PT OT will be continued. Follow-up CBC and BMP tomorrow. Review of systems: Was done for constitutional, cardiovascular, GI, pulmonary. relevant finding as above 10/23/2019 Patient is seen and evaluated in follow-up with no acute overnight issues. Patient lethargic although easily arousable. Patient her alert and oriented 2- 3. Nephrology following closely in discussing the possibility of hemodialysis. Patient does not want to have to do dialysis but states she understands this is a possibility. Patient currently remains on a Lasix drip at 10 mL's an hour with no real improvement in creatinine. Current creatinine is slightly elevated at 3.77 and BUN is 61. Hemoglobin is currently 7.9. Sodium is 134 potassium of 4.9. Blood sugars being closely monitored and maintained on sliding scale. Patient continues on IV antibiotics for the possibility of left lower extremity cellulitis and is being closely monitored. Patient continues to have some lower extremity edema although states has slightly improved. Patient denies any chest pain, shortness of breath, or palpitations. Patient is afebrile. No reports of nausea or vomiting and patient is tolerating diet. Pulmonary following also and patient continues on 3 L of oxygen via nasal cannula. Currently awaiting PT/OT evaluation. 10/24/2019 Patient is seen in follow up this morning and kidney functions continue to worsen and patient is currently maintained on a lasix drip. Patient creatinine is 4.18 with a bun of 63. Patient awaiting to receive dialysis catheter placemen t today. Nephrology following closely and Dr. Sheikh consulted. Patient denies any overnight issues. Patient is having some left foot discomfort and an xray was done showing soft tissue swelling otherwise no dislocation or fracture noted. Will order a uric acid level and repeat am labs. Patient continues to have generalized swelling and edema noted of the bilateral lower extremities. Review of systems: Constitutional: Reports fatigue, no reports of fevers or chills Cardiovascular: No reports of chest pain or palpitations Respiratory: No reports of shortness of breath, denies cough GI: no reports of nausea with no reports of vomiting : no reports of dysuria or retention Neurovascular: Reports weakness, no reports of numbness All medications have been reviewed. 10/25/2019 Patient is seen and evaluated in follow-up currently receiving hemodialysis. Patient is quite lethargic although arousable. Patient continues to be weak and will have PT/OT evaluate the patient. Patient may need possible ECF placement for continued rehab. Case management and social security specialist following. Arrangements need to be made for outpatient dialysis and nephrology following closely. Patient will need permanent catheter placement. Creatinine today is 4.34 prior to hemodialysis with a potassium of 5.1 and sodium is 134. Will repeat a.m. labs and monitor closely. Currently patient denies any chest pain, shortness of breath, or palpitations. Patient is afebrile. No reports of nausea or vomiting patient is tolerating diet. Patient continues to have some fatigue and weakness noted and will await PT/OT notes. 10/26/2019 Patient is seen and evaluated in follow-up awaiting to receive dialysis as she is currently on daily dialysis treatments. Nephrology following closely. Creatinine today slightly improved at 3.43 with a BUN of 48. Potassium is 5.2. Will repeat a.m. labs. Case management and social work following as patient will be going to [facility] once stabilized and discharged for continued PT/OT therapy as patient continues to be weak requiring assistance and gait dysfunction noted. Patient is tolerating diet with no reports of nausea or vomiting noted. Patient continues to have generalized pain of the lower extremities and swelling of bilateral lower extremities continues although is slightly improved from yesterday. Patient remains on IV Lasix push and will continue at this time. Patient is denying any chest pain, worsening shortness of breath, or palpitations. She remains afebrile. Case management has made arrangements for Wednesday//Wednesday dialysis treatments in the outpatient setting. 10/27/2019 Patient is seen and evaluated and follow-up currently sitting up in the bed awake alert and oriented 2-3 eating breakfast. No acute overnight issues. Nephrology following as patient is maintained on daily hemodialysis. Creatinine improved and is currently 2.46 with a BUN of 33. Sodium is 133 with potassium of 4.5. Patient is maintained On sliding scale and monitoring blood sugars closely. Case management and social work also following as patient will be going to [facility] once stabilized and discharged. Case management has made arrangements for hemodialysis in the outpatient setting on Wednesday//Wednesday. PT/OT following as patient continues to be weak with gait dysfunction noted. Patient remains on 60 mg of Lasix 3 times daily and will continue at this time. Will repeat a.m. labs to monitor closely. Review of systems; Constitutional: reports fatigue, no reports of fevers, or chills Cardiovascular: No reports of chest pain or palpitations Respiratory: Reports some mild shortness of breath, no reports of cough GI: No reports of nausea, vomiting, or diarrhea : No reports of dysuria or retention Neurovascular: Reports weakness with no reports of numbness All medications have been reviewed. Objective - Vital Signs Vital signs: Vital Signs Temp 98.2 F 10/27/19 11:38 Pulse 76 10/27/19 11:38 Resp 18 10/27/19 11:38 BP 149/71 10/27/19 11:38 Pulse Ox 96 10/27/19 11:38 Intake & Output 10/26/19 10/27/19 10/27/19 18:59 06:59 18:59 Intake Total 50 410 Output Total 6500 1500 Balance -6450 -1090 Weight 111 kg 104 kg Intake: Intake, IV Titration 50 50 Amount ceFAZolin 1,000 mg In 50 50 Sodium Chloride 0.9% 50 ml @ 100 mls/hr IVPB Q12H [facility] Rx#:[id number] Oral 360 Output: Urine 1500 1500 Uretheral ([place]) 1500 Hemodialysis 5000 Other: Voiding Method Indwelling Catheter Indwelling Catheter Indwelling Catheter # Bowel Movements 1 - Exam Patient is sitting up in the bed comfortably, no acute distress, lethargic although arousable, alert and oriented 2-3. Mild confusion.. HEENT: Normocephalic. Neck is supple. Pupils reactive. Nostrils clear. Oral cavity is moist. Ears reveal no drainage. Neck reveals no JVD, carotid bruits, or thyromegaly. CHEST EXAMINATION: Trachea is central. Symmetrical expansion. Bibasilar diminished air entry and no rhonchi or wheezing. Lung greer clear to auscultation and percussion. CARDIAC: Normal S1, S2 with no gallops. No murmurs ABDOMEN: Soft. Bowel sounds normal. No organomegaly. No abdominal bruits. Extremities: 2+ bilateral edema. No clubbing or cyanosis. left ankle discomfort and tenderness upon palpation, slightly improved, erythema around the left ankle also improved Neurologically awake, alert, oriented x2-3 with well-coordinated movements. No focal deficits noted, diffusely weak Skin: No rash or skin lesions. Psychiatric: Cooperative. Non-suicidal Musculoskeletal: No joint swelling or deformity. Normal range of motion. - Labs CBC & Chem 7: 10/27/19 08:38 10/27/19 08:38 Labs: Abnormal Lab Results - Last 24 Hours (Table) 10/26/19 10/26/19 10/27/19 Range/Units 17:23 20:25 06:57 RBC (3.80-5.40) m/uL Hgb (11.4-16.0) gm/dL Hct (34.0-46.0) % Lymphocytes # (1.0-4.8) k/uL Sodium (137-145) mmol/L Chloride (98-107) mmol/L BUN (7-17) mg/dL Creatinine (0.52-1.04) mg/dL Glucose (74-99) mg/dL POC Glucose (mg/dL) 203 H 161 H 161 H (75-99) mg/dL 10/27/19 10/27/19 10/27/19 Range/Units 08:38 08:38 11:16 RBC 3.13 L (3.80-5.40) m/uL Hgb 8.8 L (11.4-16.0) gm/dL Hct 27.7 L (34.0-46.0) % Lymphocytes # 0.5 L (1.0-4.8) k/uL Sodium 133 L (137-145) mmol/L Chloride 96 L (98-107) mmol/L BUN 33 H (7-17) mg/dL Creatinine 2.46 H (0.52-1.04) mg/dL Glucose 145 H (74-99) mg/dL POC Glucose (mg/dL) 247 H (75-99) mg/dL Assessment and Plan Assessment: -Acute hypoxic respiratory failure secondary to fluid overload and acute on chronic CHF with diastolic dysfunction. Patient is maintained on 60 mg of Lasix every 8 hours -Acute kidney injury secondary to ATN secondary to infection. Nephrology following and patient is currently receiving hemodialysis -Left lower extremity cellulitis around ankle area. Maintained on IV cefazolin -Significant bradycardia patient was on Toprol-XL 200 mg. on hold now. Heart rate improved -Hypertensive urgency. BP controlled now. -Acute UTI from cystitis -Intermediate probability for PE and VQ scan. CTA could not be done due to creatinine level. -Obesity BMI 32.5 -Depression otherwise specified -Metabolic encephalopathy could be from medications. Patient was on a large dose of Ambien. Cutback on the same.-Slow to respond -GERD -Essential hypertension -Diabetes mellitus type 2 -Diabetic nephropathy, CK D stage IV -Metabolic acidosis from kidney failure -Hypothermic-metabolic, improved Plan: Continue current medications, management, and symptomatic treatment. Nephrology following as patient is currently maintained on daily hemodialysis. Case management and social work also following as patient is scheduled to go to [facility] once stabilized discharged on Wednesday as arrangements for hemodialysis were not able to begin until Wednesday of next week. Instructed the patient to increase activity as tolerated and continue working with PT/OT therapy. Will continue to monitor blood sugars and blood pressure closely and maintain on sliding scale at this time. Will repeat a.m. labs. Further recommendations to follow.
--- NOTE | 2019-10-27 17:03 | PN ---
PROGRESS NOTE Patient is seen for followup for acute kidney injury on top of chronic kidney disease. She was admitted with worsening renal failure and significant volume overload which did not respond well to Lasix drip, and therefore patient was started on dialysis. She is being dialyzed on a daily basis. Patient is scheduled for hemodialysis again today for about 2-1/2 hours and she will have another treatment tomorrow. Today is her third treatment. Patient has an outpatient chair time for Wednesday, , Wednesday at the [facility]. PHYSICAL EXAMINATION: On examination today, patient is comfortable. Blood pressure is 149/71, heart rate 76 per minute. She is afebrile. EXAMINATION OF THE HEART: S1 and S2. EXAMINATION OF LUNGS: Decreased breath sounds at bases. ABDOMEN: Soft, obese, non-tender. Examination of lower extremities shows edema currently improved. BATCH ATTENDANT exam is grossly intact. Patient is moving all 4 extremities. LABS: Labs show sodium 133, potassium 4.5, BUN 33, creatinine 2.46, hemoglobin 8.8 g/dL. ASSESSMENT: 1. Chronic kidney disease, NKF stage IV, with progressive renal failure and associated with significant volume overload, started on hemodialysis. Patient is receiving her third treatment today. She will be dialyzed again tomorrow and will continue with Wednesday, , Wednesday schedule at [facility]. 2. Volume overload, currently improving. Ejection fraction is not low. It is 55% to 60%. Patient has mildly dilated left atrium. 3. Chronic kidney disease secondary to diabetic nephropathy with nephrotic-range proteinuria and negative serologies. 4. Generalized debility. PLAN: Repeat hemodialysis in a.m. Patient can likely be discharged tomorrow after hemodialysis. She will be maintained on erythrocyte-stimulating agents as outpatient. MMODL / IJN: [id number] /
[2019-10-27 17:10] LABS: Glucose,Whole Blood 118 mg/dL (75-99)
[2019-10-27 21:20] LABS: Glucose,Whole Blood 215 mg/dL (75-99)
[2019-10-27] MEDS: PIOGLITAZONE 30 MG TAB PO SCH (21:26)
[2019-10-28] MEDS: HYDROcodone/APAP 5-325MG 1 EACH TAB PO PRN (00:16)
[2019-10-28] MEDS: MULTIVITAMINS, THERA 1 EACH TAB PO SCH (07:17)
[2019-10-28] MEDS: PANTOPRAZOLE 40 MG TABLET PO SCH (07:17)
[2019-10-28] MEDS: CALCIUM ACETATE 667 MG TAB PO SCH ×3 (07:17→16:52)
[2019-10-28] MEDS: ENOXAPARIN 30 MG/0.3 ML SYRINGE SQ SCH (07:17)
[2019-10-28] MEDS: ASPIRIN 81 MG PO SCH (07:17)
[2019-10-28] MEDS: FUROSEMIDE 10 MG/ML 10 ML VIAL IV SCH ×2 (07:19→16:52)
[2019-10-28] MEDS: MAGNESIUM OXIDE 400 MG TAB PO SCH ×3 (07:22→21:28)
[2019-10-28 07:32] LABS: Glucose,Whole Blood 144 mg/dL (75-99)
[2019-10-28] MEDS: INSULIN ASPART (NovoLOG) 100 UNIT/ML VIAL SQ SCH ×4 (07:55→21:28)
[2019-10-28 08:16] LABS: Potassium 4.3 mmol/L (3.5-5.1)
[2019-10-28] MEDS: hydrALAZINE HCL 50 MG TAB PO SCH ×4 (11:36→21:28)
[2019-10-28] MEDS: amLODIPine 10 MG TAB PO SCH (11:39)
[2019-10-28] MEDS: lisinopriL 10 MG TAB PO SCH (11:39)
[2019-10-28] MEDS: metOLazone 2.5 MG TAB PO SCH (11:40)
[2019-10-28] MEDS: ACETAMINOPHEN TAB 325 MG TAB PO PRN ×2 (11:46→19:44)
[2019-10-28 11:47] LABS: Glucose,Whole Blood 190 mg/dL (75-99)
--- NOTE | 2019-10-28 13:31 | P.PN ---
Subjective [address] Kristy Ortega. Patient was just at [facility] from October 08. Admitted there with a creatinine of 3.6. Prior to discharge a day ago creatinine was down to 3.2. Seen by Dr. Bocanegra. Renal ultrasound did not show any major abnormality. Corticomedullary differentiation was maintained. Patient came home and felt tired lethargic. Rundown. Appetite has been okay. [place] cold. She decided to come back in again. Patient has known diabetes. [place] to have diabetic nephropathy. Chronic stable medical conditions include diabetes, GERD, hypertension, hyperlipidemia, obstructive sleep apnea. Patient last labs here on September 04 were 2.93. Also found to be bradycardic. Patient does use a walker. Admitted with metabolic encephalopathy. Ambien and Xanax was discontinued. Patient also found to be hypothermic. Suma hugger given. Given IV fluids. 10/14-more awake today.. Answers questions better. Suma hugger in place. The 25% of breakfast and 75% of lunch. Laying in bed. Tired. 10/16/2019 Patient is currently sitting in the chair. Awake alert and oriented without seems to be confused. Blood pressure still elevated patient was started on Catapres patch and metoprolol has been discontinued due to bradycardia. Heart rate went up to 66 now. Laboratory data showed BUN 44 and creatinine 2.94 Potassium 5.4 bicarb is 21 magnesium 1.7 Patient had chest x-ray this morning showed bibasilar infiltrate and small effusion correlate for interstitial pneumonitis versus congestion. Underlying pneumonia in the differential diagnosis. Patient was given a dose of IV Lasix. VQ scan showed intermediate probability for pulmonary embolism. CT chest could not be done due to elevated creatinine level. Patient is currently requiring oxygen at 4 L via nasal cannula. Patient is not on home oxygen. No complaints of chest pain. No nausea vomiting or abdominal pain or diarrhea. No headache or dizziness. 10/17/2019 Patient is currently sitting in a chair seems fairly confused. Awake alert oriented 3. Still having shortness of breath and requiring oxygen at 4 L when as a cannula. Due to pleural effusion and vascular congestion patient was started on IV Lasix 40 mg twice daily. Patient is being continued on antibiotics for possible pneumonia. Patient had VQ scan showed moderate probability for PE and was started on therapeutic dose of Lovenox. Pulmonary was consulted for further evaluation and development of long-term anticoagulation. blood pressure is better controlled today. Heart rate improved to 70s. Nephrology and cardiology is on board. Pulmonary was consulted. 10/17/2017 Patient is currently sitting in the chair. Drowsy and lethargic. Otherwise no acute distress. Currently on oxygen via nasal cannula at 4 L. Patient is being continued on IV Lasix. Also on antibiotics in the form of azithromycin ceftriaxone for possible pneumonia and urinary tract infection. Laboratory showed sodium 140, potassium 6.1 and BUN 54 and creatinine 3.26. Magnesium 1.7 Patient was given dextrose and IV insulin for hyperkalemia. Follow-up potassium level. Pulmonary and nephrology is following. Chest x-ray showed increased bilateral airspace opacities and small bilateral pleural effusions versus 10/16/2019 10/19/2019 Patient is currently sitting in a chair. Slightly lethargic but awake alert oriented x3. Still having significant bilateral lower extremity edema and is being continued on Lasix. Change to Lasix drip now. No complaints of shortness of breath or chest pain. No fever no chills. Currently on antibiotics in the form of ceftriaxone and azithromycin. Denies any cough or sputum production. Laboratory showed WBC 5.3, hemoglobin 9.0 and platelets 155 Sodium 140, potassium 4.6, chloride 108, BUN 15 creatinine 3.15 Magnesium 1.6 Pulmonary nephrology is following. 10/20/19 Patient is currently sitting in a chair. She is drowsy but awake alert oriented 3. Slowly participating in physical therapy. Patient was started on Lasix drip. Breathing status is improving. Pulmonary is following. Nephrology is on board as well. 10/21/2019 Patient is currently lying in the bed comfortably. Shortness of breath is better. Patient is being continued on Lasix drip and also metolazone was added. Hemoglobin is 8.2 and creatinine level was 3.1 today. Patient has been afebrile. Currently being continued on hydralazine, amlodipine and Lasix for blood pressure control.. Beta blockers on hold due to bradycardia on admission. 10/22/2019 Patient is currently lying in the bed awake alert but more lethargic and also pain increasing confusion today. Patient has been afebrile. Laboratory data showed sodium 134, BUN 54 and creatinine 3.54 with slight increase in creatinine. Patient is currently on Lasix and metolazone was added yesterday. Nephrology is following. Patient is still having significant leg swelling and is being diuresed. Patient did complain of left foot swelling, redness and increasing pain and tenderness over the ankle area and possible developing cellulitis.. Patient completed antibiotic course for possible pneumonia. Antibiotics will be changed to Cefzil at this time. Patient is being followed by pulmonary and nephrology. PT OT will be continued. Follow-up CBC and BMP tomorrow. Review of systems: Was done for constitutional, cardiovascular, GI, pulmonary. relevant finding as above 10/23/2019 Patient is seen and evaluated in follow-up with no acute overnight issues. Patient lethargic although easily arousable. Patient her alert and oriented 2- 3. Nephrology following closely in discussing the possibility of hemodialysis. Patient does not want to have to do dialysis but states she understands this is a possibility. Patient currently remains on a Lasix drip at 10 mL's an hour with no real improvement in creatinine. Current creatinine is slightly elevated at 3.77 and BUN is 61. Hemoglobin is currently 7.9. Sodium is 134 potassium of 4.9. Blood sugars being closely monitored and maintained on sliding scale. Patient continues on IV antibiotics for the possibility of left lower extremity cellulitis and is being closely monitored. Patient continues to have some lower extremity edema although states has slightly improved. Patient denies any chest pain, shortness of breath, or palpitations. Patient is afebrile. No reports of nausea or vomiting and patient is tolerating diet. Pulmonary following also and patient continues on 3 L of oxygen via nasal cannula. Currently awaiting PT/OT evaluation. 10/24/2019 Patient is seen in follow up this morning and kidney functions continue to worsen and patient is currently maintained on a lasix drip. Patient creatinine is 4.18 with a bun of 63. Patient awaiting to receive dialysis catheter placement today. Nephrology following closely and Dr. Sheikh consulted. Patient denies any overnight issues. Patient is having some left foot discomfort and an xray was done showing soft tissue swelling otherwise no dislocation or fracture noted. Will order a uric acid level and repeat am labs. Patient continues to have generalized swelling and edema noted of the bilateral lower extremities. Review of systems: Constitutional: Reports fatigue, no reports of fevers or chills Cardiovascular: No reports of chest pain or palpitations Respiratory: No reports of shortness of breath, denies cough GI: no reports of nausea with no reports of vomiting : no reports of dysuria or retention Neurovascular: Reports weakness, no reports of numbness All medications have been reviewed. 10/25/2019 Patient is seen and evaluated in follow-up currently receiving hemodialysis. Patient is quite lethargic although arousable. Patient continues to be weak and will have PT/OT evaluate the patient. Patient may need possible ECF placement for continued rehab. Case management and clinical social worker following. Arrangements need to be made for outpatient dialysis and nephrology following closely. Patient will need permanent catheter placement. Creatinine today is 4.34 prior to hemodialysis with a potassium of 5.1 and sodium is 134. Will repeat a.m. labs and monitor closely. Currently patient denies any chest pain, shortness of breath, or palpitations. Patient is afebrile. No reports of nausea or vomiting patient is tolerating diet. Patient continues to have some fatigue and weakness noted and will await PT/OT notes. 10/26/2019 Patient is seen and evaluated in follow-up awaiting to receive dialysis as she is currently on daily dialysis treatments. Nephrology following closely. Creatinine today slightly improved at 3.43 with a BUN of 48. Potassium is 5.2. Will repeat a.m. labs. Case management and social work following as patient will be going to [facility] once stabilized and discharged for continued PT/OT therapy as patient continues to be weak requiring assistance and gait dysfunction noted. Patient is tolerating diet with no reports of nausea or vomiting noted. Patient continues to have generalized pain of the lower extremities and swelling of bilateral lower extremities continues although is slightly improved from yesterday. Patient remains on IV Lasix push and will continue at this time. Patient is denying any chest pain, worsening shortness of breath, or palpitations. She remains afebrile. Case management has made arrangements for Wednesday//Wednesday dialysis treatments in the outpatient setting. 10/27/2019 Patient is seen and evaluated and follow-up currently sitting up in the bed awake alert and oriented 2-3 eating breakfast. No acute overnight issues. Nephrology following as patient is maintained on daily hemodialysis. Creatinine improved and is currently 2.46 with a BUN of 33. Sodium is 133 with potassium of 4.5. Patient is maintained On sliding scale and monitoring blood sugars closely. Case management and social work also following as patient will be going to [facility] once stabilized and discharged. Case management has made arrangements for hemodialysis in the outpatient setting on Wednesday//Wednesday. PT/OT following as patient continues to be weak with gait dysfunction noted. Patient remains on 60 mg of Lasix 3 times daily and will continue at this time. Will repeat a.m. labs to monitor closely. 10/28/2019 Patient is almost alert oriented 3. Patient's serum sodium is 134 being continued on hemodialysis. Patient will be discharged on Wednesday to subacute rehabitation. Constitutional: Denied any fatigue denied any fever. Cardio vascular: denied any chest pain, palpitations Gastrointestinal denied any nausea vomiting Pulmonary: Denied any shortness of breath cough Neurologic denied any new focal deficits All inpatient medications were reviewed and appropriate changes in these medications as dictated in the interval history and assessment and plan. Objective - Vital Signs Vital signs: Vital Signs Temp 98.1 F 10/28/19 13:00 Pulse 79 10/28/19 13:00 Resp 18 10/28/19 13:00 BP 117/64 10/28/19 13:00 Pulse Ox 92 L 10/28/19 13:00 Intake & Output 10/27/19 10/28/19 10/28/19 18:59 06:59 18:59 Intake Total 720 Output Total 4300 250 Balance -4300 -250 720 Weight 96 kg Intake: Oral 720 Output: Urine 1800 250 Uretheral ([place]) 250 Hemodialysis 2500 Other: Voiding Method Indwelling Catheter Indwelling Catheter Indwelling Catheter - Exam Patient is sitting up in the bed comfortably, no acute distress, lethargic alt freddy arousable, alert and oriented 2-3. Mild confusion.. HEENT: Normocephalic. Neck is supple. Pupils reactive. Nostrils clear. Oral cavity is moist. Ears reveal no drainage. Neck reveals no JVD, carotid bruits, or thyromegaly. CHEST EXAMINATION: Trachea is central. Symmetrical expansion. Bibasilar diminished air entry and no rhonchi or wheezing. Lung greer clear to auscultation and percussion. CARDIAC: Normal S1, S2 with no gallops. No murmurs ABDOMEN: Soft. Bowel sounds normal. No organomegaly. No abdominal bruits. Extremities: 2+ bilateral edema. No clubbing or cyanosis. left ankle discomfort and tenderness upon palpation, slightly improved, erythema around the left ankle also improved Neurologically awake, alert, oriented x2-3 with well-coordinated movements. No focal deficits noted, diffusely weak Skin: No rash or skin lesions. Psychiatric: Cooperative. Non-suicidal Musculoskeletal: No joint swelling or deformity. Normal range of motion. - Labs CBC & Chem 7: 10/27/19 08:38 10/28/19 07:36 Labs: Abnormal Lab Results - Last 24 Hours (Table) 10/27/19 10/27/19 10/28/19 Range/Units 17:09 21:15 07:31 Sodium (137-145) mmol/L Chloride (98-107) mmol/L Carbon Dioxide (22-30) mmol/L BUN (7-17) mg/dL Creatinine (0.52-1.04) mg/dL Glucose (74-99) mg/dL POC Glucose (mg/dL) 118 H 215 H 144 H (75-99) mg/dL 10/28/19 10/28/19 Range/Units 07:36 11:43 Sodium 134 L (137-145) mmol/L Chloride 97 L (98-107) mmol/L Carbon Dioxide 31 H (22-30) mmol/L BUN 26 H (7-17) mg/dL Creatinine 2.74 H (0.52-1.04) mg/dL Glucose 137 H (74-99) mg/dL POC Glucose (mg/dL) 190 H (75-99) mg/dL Assessment and Plan Plan: -Acute hypoxic respiratory failure secondary to fluid overload and acute on chronic CHF with diastolic dysfunction. Patient is maintained on hemodialysis -Acute kidney injury secondary to ATN secondary to infection. Nephrology following and patient is currently receiving hemodialysis -Left lower extremity cellulitis around ankle area. on IV cefazolin -Significant bradycardia patient was on Toprol-XL 200 mg. on hold now. Heart rate improved -Hypertensive urgency. BP controlled now. -Acute UTI from cystitis -Obesity BMI 32.5 -Depression otherwise specified -Metabolic encephalopathy could be from medications. Patient was on a large dose of Ambien. Cutback on the same.-Slow to respond -GERD -Essential hypertension -Diabetes mellitus type 2 -Diabetic nephropathy, CK D stage IV -Metabolic acidosis from kidney failure -Hypothermic-metabolic, improved Plan: Continue current medications, management, and symptomatic treatment. Nephrology following as patient is currently maintained on daily hemodialysis. Case management and social work also following as patient is scheduled to go to [facility] once stabilized discharged on Wednesday as arrangements for hemodialysis were not able to begin until Wednesday of next week. Instructed the patient to increase activity as tolerated and continue working with PT/OT therapy. Will continue to monitor blood sugars and blood pressure closely and maintain on sliding scale at this time. Will repeat a.m. labs.
--- NOTE | 2019-10-28 14:21 | P.PN ---
Subjective Progress Note Date: 10/28/19 Principal diagnosis: This is a 64-year-old female who started on dialysis admission she is known with chronic kidney disease stage IV and has graduated into end-stage renal failure She failed a trial of Lasix drip Currently she has been dialyzed 4 days in a row as of today. She is awake alert oriented 3 But she is profoundly weak. Unable to stand up. Vital signs are stable Objective - Vital Signs Vital signs: Vital Signs Temp 98.1 F 10/28/19 13:00 Pulse 79 10/28/19 13:00 Resp 18 10/28/19 13:00 BP 117/64 10/28/19 13:00 Pulse Ox 92 L 10/28/19 13:00 Intake & Output 10/27/19 10/28/19 10/28/19 18:59 06:59 18:59 Intake Total 720 Output Total 4300 250 Balance -4300 -250 720 Weight 96 kg Intake: Oral 720 Output: Urine 1800 250 Uretheral ([place]) 250 Hemodialysis 2500 Other: Voiding Method Indwelling Catheter Indwelling Catheter Indwelling Catheter Examination awake alert oriented 3 HEENT exam no JVP neck is supple no facial asymmetry Lungs are significant for bilateral feeling an occasional coarse crackle on the left base less than optimal inspiratory effort Heart sounds are unremarkable no murmur rub gallop Abdomen soft non-tender Physical exam reveals minimal edema Neurologically awake alert oriented but really weak - Labs CBC & Chem 7: 10/27/19 08:38 10/28/19 07:36 Labs: Abnormal Lab Results - Last 24 Hours (Table) 10/27/19 10/27/19 10/28/19 Range/Units 17:09 21:15 07:31 Sodium (137-145) mmol/L Chloride (98-107) mmol/L Carbon Dioxide (22-30) mmol/L BUN (7-17) mg/dL Creatinine (0.52-1.04) mg/dL Glucose (74-99) mg/dL POC Glucose (mg/dL) 118 H 215 H 144 H (75-99) mg/dL 10/28/19 10/28/19 Range/Units 07:36 11:43 Sodium 134 L (137-145) mmol/L Chloride 97 L (98-107) mmol/L Carbon Dioxide 31 H (22-30) mmol/L BUN 26 H (7-17) mg/dL Creatinine 2.74 H (0.52-1.04) mg/dL Glucose 137 H (74-99) mg/dL POC Glucose (mg/dL) 190 H (75-99) mg/dL Assessment and Plan Assessment: Impression 1. ESRD on dialysis now since this admission with for dialysis today as of 10/28/2019. Neurologically very weak but awake and alert 2. Mildly fluid overloaded with minimal edema and some wheezing and crackles in bases. 3. Anemia of ESRD, hemoglobin is 8.8, going up 4. Iron sufficient, iron saturations 20% on 10/13/2019. Recommendation 1. Next dialysis will be Wednesday 2. She will need rehab and physical therapy 3. Watch I and saturation
[2019-10-28 17:31] LABS: Glucose,Whole Blood 194 mg/dL (75-99)
[2019-10-28 20:08] LABS: Glucose,Whole Blood 231 mg/dL (75-99)
[2019-10-28] MEDS: PIOGLITAZONE 30 MG TAB PO SCH (21:28)
[2019-10-28] MEDS: MELATONIN 3 MG TABLET PO PRN (21:31)
[2019-10-29] MEDS: FUROSEMIDE 10 MG/ML 10 ML VIAL IV SCH ×4 (00:05→23:09)
[2019-10-29 07:30] LABS: Glucose,Whole Blood 162 mg/dL (75-99)
[2019-10-29] MEDS: INSULIN ASPART (NovoLOG) 100 UNIT/ML VIAL SQ SCH ×4 (08:00→21:13)
[2019-10-29] MEDS: CALCIUM ACETATE 667 MG TAB PO SCH ×3 (08:00→16:32)
[2019-10-29] MEDS: amLODIPine 10 MG TAB PO SCH (08:01)
[2019-10-29] MEDS: MULTIVITAMINS, THERA 1 EACH TAB PO SCH (08:02)
[2019-10-29] MEDS: ASPIRIN 81 MG PO SCH (08:02)
[2019-10-29] MEDS: MAGNESIUM OXIDE 400 MG TAB PO SCH ×3 (08:02→21:12)
[2019-10-29] MEDS: lisinopriL 10 MG TAB PO SCH (08:02)
[2019-10-29] MEDS: hydrALAZINE HCL 50 MG TAB PO SCH ×4 (08:02→21:13)
[2019-10-29] MEDS: metOLazone 2.5 MG TAB PO SCH (08:02)
[2019-10-29] MEDS: ENOXAPARIN 30 MG/0.3 ML SYRINGE SQ SCH (08:02)
[2019-10-29] MEDS: PANTOPRAZOLE 40 MG TABLET PO SCH (08:04)
[2019-10-29 12:10] LABS: Glucose,Whole Blood 239 mg/dL (75-99)
--- NOTE | 2019-10-29 13:25 | P.PN ---
Subjective [address] Kristy Ortega. Patient was just at [facility] from October 08. Admitted there with a creatinine of 3.6. Prior to discharge a day ago creatinine was down to 3.2. Seen by Dr. Bocanegra. Renal ultrasound did not show any major abnormality. Corticomedullary differentiation was maintained. Patient came home and felt tired lethargic. Rundown. Appetite has been okay. [place] cold. She decided to come back in again. Patient has known diabetes. [place] to have diabetic nephropathy. Chronic stable medical conditions include diabetes, GERD, hypertension, hyperlipidemia, obstructive sleep apnea. Patient last labs here on September 04 were 2.93. Also found to be bradycardic. Patient does use a walker. Admitted with metabolic encephalopathy. Ambien and Xanax was discontinued. Patient also found to be hypothermic. Suma hugger given. Given IV fluids. 10/14-more awake today.. Answers questions better. Suma hugger in place. The 25% of breakfast and 75% of lunch. Laying in bed. Tired. 10/16/2019 Patient is currently sitting in the chair. Awake alert and oriented without seems to be confused. Blood pressure still elevated patient was started on Catapres patch and metoprolol has been discontinued due to bradycardia. Heart rate went up to 66 now. Laboratory data showed BUN 44 and creatinine 2.94 Potassium 5.4 bicarb is 21 magnesium 1.7 Patient had chest x-ray this morning showed bibasilar infiltrate and small effusion correlate for interstitial pneumonitis versus congestion. Underlying pneumonia in the differential diagnosis. Patient was given a dose of IV Lasix. VQ scan showed intermediate probability for pulmonary embolism. CT chest could not be done due to elevated creatinine level. Patient is currently requiring oxygen at 4 L via nasal cannula. Patient is not on home oxygen. No complaints of chest pain. No nausea vomiting or abdominal pain or diarrhea. No headache or dizziness. 10/17/2019 Patient is currently sitting in a chair seems fairly confused. Awake alert oriented 3. Still having shortness of breath and requiring oxygen at 4 L when as a cannula. Due to pleural effusion and vascular congestion patient was started on IV Lasix 40 mg twice daily. Patient is being continued on antibiotics for possible pneumonia. Patient had VQ scan showed moderate probability for PE and was started on therapeutic dose of Lovenox. Pulmonary was consulted for further evaluation and development of long-term anticoagulation. blood pressure is better controlled today. Heart rate improved to 70s. Nephrology and cardiology is on board. Pulmonary was consulted. 10/17/2017 Patient is currently sitting in the chair. Drowsy and lethargic. Otherwise no acute distress. Currently on oxygen via nasal cannula at 4 L. Patient is being continued on IV Lasix. Also on antibiotics in the form of azithromycin ceftriaxone for possible pneumonia and urinary tract infection. Laboratory showed sodium 140, potassium 6.1 and BUN 54 and creatinine 3.26. Magnesium 1.7 Patient was given dextrose and IV insulin for hyperkalemia. Follow-up potassium level. Pulmonary and nephrology is following. Chest x-ray showed increased bilateral airspace opacities and small bilateral pleural effusions versus 10/16/2019 10/19/2019 Patient is currently sitting in a chair. Slightly lethargic but awake alert oriented x3. Still having significant bilateral lower extremity edema and is being continued on Lasix. Change to Lasix drip now. No complaints of shortness of breath or chest pain. No fever no chills. Currently on antibiotics in the form of ceftriaxone and azithromycin. Denies any cough or sputum production. Laboratory showed WBC 5.3, hemoglobin 9.0 and platelets 155 Sodium 140, potassium 4.6, chloride 108, BUN 15 creatinine 3.15 Magnesium 1.6 Pulmonary nephrology is following. 10/20/19 Patient is currently sitting in a chair. She is drowsy but awake alert oriented 3. Slowly participating in physical therapy. Patient was started on Lasix drip. Breathing status is improving. Pulmonary is following. Nephrology is on board as well. 10/21/2019 Patient is currently lying in the bed comfortably. Shortness of breath is better. Patient is being continued on Lasix drip and also metolazone was added. Hemoglobin is 8.2 and creatinine level was 3.1 today. Patient has been afebrile. Currently being continued on hydralazine, amlodipine and Lasix for blood pressure control.. Beta blockers on hold due to bradycardia on admission. 10/22/2019 Patient is currently lying in the bed awake alert but more lethargic and also pain increasing confusion today. Patient has been afebrile. Laboratory data showed sodium 134, BUN 54 and creatinine 3.54 with slight increase in creatinine. Patient is currently on Lasix and metolazone was added yesterday. Nephrology is following. Patient is still having significant leg swelling and is being diuresed. Patient did complain of left foot swelling, redness and increasing pain and tenderness over the ankle area and possible developing cellulitis.. Patient completed antibiotic course for possible pneumonia. Antibiotics will be changed to Cefzil at this time. Patient is being followed by pulmonary and nephrology. PT OT will be continued. Follow-up CBC and BMP tomorrow. Review of systems: Was done for constitutional, cardiovascular, GI, pulmonary. relevant finding as above 10/23/2019 Patient is seen and evaluated in follow-up with no acute overnight issues. Patient lethargic although easily arousable. Patient her alert and oriented 2- 3. Nephrology following closely in discussing the possibility of hemodialysis. Patient does not want to have to do dialysis but states she understands this is a possibility. Patient currently remains on a Lasix drip at 10 mL's an hour with no real improvement in creatinine. Current creatinine is slightly elevated at 3.77 and BUN is 61. Hemoglobin is currently 7.9. Sodium is 134 potassium of 4.9. Blood sugars being closely monitored and maintained on sliding scale. Patient continues on IV antibiotics for the possibility of left lower extremity cellulitis and is being closely monitored. Patient continues to have some lower extremity edema although states has slightly improved. Patient denies any chest pain, shortness of breath, or palpitations. Patient is afebrile. No reports of nausea or vomiting and patient is tolerating diet. Pulmonary following also and patient continues on 3 L of oxygen via nasal cannula. Currently awaiting PT/OT evaluation. 10/24/2019 Patient is seen in follow up this morning and kidney functions continue to worsen and patient is currently maintained on a lasix drip. Patient creatinine is 4.18 with a bun of 63. Patient awaiting to receive dialysis catheter placement today. Nephrology following closely and Dr. Sheikh consulted. Patient denies any overnight issues. Patient is having some left foot discomfort and an xray was done showing soft tissue swelling otherwise no dislocation or fracture noted. Will order a uric acid level and repeat am labs. Patient continues to have generalized swelling and edema noted of the bilateral lower extremities. All medications have been reviewed. 10/25/2019 Patient is seen and evaluated in follow-up currently receiving hemodialysis. Patient is quite lethargic although arousable. Patient continues to be weak and will have PT/OT evaluate the patient. Patient may need possible ECF placement for continued rehab. Case management and social media marketing manager following. Arrangements need to be made for outpatient dialysis and nephrology following closely. Sage bobbi will need permanent catheter placement. Creatinine today is 4.34 prior to hemodialysis with a potassium of 5.1 and sodium is 134. Will repeat a.m. labs and monitor closely. Currently patient denies any chest pain, shortness of breath, or palpitations. Patient is afebrile. No reports of nausea or vomiting patient is tolerating diet. Patient continues to have some fatigue and weakness noted and will await PT/OT notes. 10/26/2019 Patient is seen and evaluated in follow-up awaiting to receive dialysis as she is currently on daily dialysis treatments. Nephrology following closely. Cr eatinine today slightly improved at 3.43 with a BUN of 48. Potassium is 5.2. Will repeat a.m. labs. Case management and social work following as patient will be going to [facility] once stabilized and discharged for continued PT/OT therapy as patient continues to be weak requiring assistance and gait dysfunction noted. Patient is tolerating diet with no reports of nausea or vomiting noted. Patient continues to have generalized pain of the lower extremities and swelling of bilateral lower extremities continues although is slightly improved from yesterday. Patient remains on IV Lasix push and will continue at this time. Patient is denying any chest pain, worsening shortness of breath, or palpitations. She remains afebrile. Case management has made arrangements for Wednesday//Wednesday dialysis treatments in the outpatient setting. 10/27/2019 Patient is seen and evaluated and follow-up currently sitting up in the bed awake alert and oriented 2-3 eating breakfast. No acute overnight issues. Nephrology following as patient is maintained on daily hemodialysis. Creatinine improved and is currently 2.46 with a BUN of 33. Sodium is 133 with potassium o f 4.5. Patient is maintained On sliding scale and monitoring blood sugars closely. Case management and social work also following as patient will be going to [facility] once stabilized and discharged. Case management has made arrangements for hemodialysis in the outpatient setting on Wednesday//Wednesday. PT/OT following as patient continues to be weak with gait dysfunction noted. Patient remains on 60 mg of Lasix 3 times daily and will continue at this time. Will repeat a.m. labs to monitor closely. 10/28/2019 Patient is almost alert oriented 3. Patient's serum sodium is 134 being continued on hemodialysis. Patient will be discharged on Wednesday to subacute r ehabitation. 10/29/2019 Patient was dialyzed 4 days in a row so farclinically doing well will be di scharged tomorrow to subacute rehab does have mild bibasal crackles Constitutional: Denied any fatigue denied any fever. Cardio vascular: denied any chest pain, palpitations Gastrointestinal denied any nausea vomiting Pulmonary: Denied any shortness of breath cough Neurologic denied any new focal deficits All inpatient medications were reviewed and appropriate changes in these medications as dictated in the interval history and assessment and plan. Objective - Vital Signs Vital signs: Vital Signs Temp 99.4 F 10/29/19 12:53 Pulse 73 10/29/19 12:53 Resp 18 10/29/19 12:53 BP 123/65 10/29/19 12:53 Pulse Ox 94 L 10/29/19 12:53 Intake & Output 10/28/19 10/29/19 10/29/19 18:59 06:59 18:59 Intake Total 1950 360 Output Total 2200 600 800 Balance -250 -600 -440 Weight 86.5 kg Intake: Oral 1950 360 Output: Urine 2200 600 800 Uretheral (Hilliard) 600 400 Other: Voiding Method Indwelling Catheter Indwelling Catheter Indwelling Catheter # Voids 1 1 - Exam Patient is sitting up in the bed comfortably, no acute distress, lethargic although arousable, alert and oriented 2-3. Mild confusion.. HEENT: Normocephalic. Neck is supple. Pupils reactive. Nostrils clear. Oral cavity is moist. Ears reveal no drainage. Neck reveals no JVD, carotid bruits, or thyromegaly. CHEST EXAMINATION: Trachea is central. Symmetrical expansion. bibasilar crackles were appreciated CARDIAC: Normal S1, S2 with no gallops. No murmurs ABDOMEN: Soft. Bowel sounds normal. No organomegaly. No abdominal bruits. Extremities: 2+ bilateral edema. No clubbing or cyanosis. left ankle discomfort and tenderness upon palpation, slightly improved, erythema around the left ankle also improved Neurologically awake, alert, oriented x2-3 with well-coordinated movements. No focal deficits noted, diffusely weak Skin: No rash or skin lesions. Psychiatric: Cooperative. Non-suicidal Musculoskeletal: No joint swelling or deformity. Normal range of motion. - Labs CBC & Chem 7: 10/27/19 08:38 10/28/19 07:36 Labs: Abnormal Lab Results - Last 24 Hours (Table) 10/28/19 10/28/19 10/29/19 Range/Units 17:26 20:07 07:28 POC Glucose (mg/dL) 194 H 231 H 162 H (75-99) mg/dL 10/29/19 Range/Units 11:49 POC Glucose (mg/dL) 239 H (75-99) mg/dL Assessment and Plan Plan: -Acute hypoxic respiratory failure secondary to fluid overload and acute on chronic CHF with diastolic dysfunction. Patient is maintained on hemodialysispatient had hemodialysis 4 days in a row -Acute kidney injury secondary to ATN secondary to infection. Nephrology following and patient is currently receiving hemodialysis -Left lower extremity cellulitis around ankle area. on IV cefazolin -Significant bradycardia patient was on Toprol-XL 200 mg. on hold now. Heart rate improved . Patient although is still on clonidine patch -Hypertensive urgency. BP controlled now. -Acute UTI from cystitis -Obesity BMI 32.5 -Depression otherwise specified -Metabolic encephalopathy could be from medications. Patient was on a large dos e of Ambien. Cutback on the same.-Slow to respond -GERD -Essential hypertension -Diabetes mellitus type 2 -Diabetic nephropathy, CK D stage IV -Metabolic acidosis from kidney failure -Hypothermic-metabolic, improved patient will be discharged as an electronic medical facility tomorrow
--- NOTE | 2019-10-29 14:23 | P.PN ---
Subjective Progress Note Date: 10/29/19 Principal diagnosis: This is a 64-year-old female who started on dialysis during this admission, she is known with chronic kidney disease stage IV and has graduated into end-stage renal failure She failed a trial of Lasix drip Currently she has been dialyzed 4 days in a row as of yesterday . Today she is feeling much better appetite is back today are normal no nausea vomiting. No abdominal pain no fever chills cough she is still unable to stand up but can sit up in the chair with some help She is awake alert oriented 3 Vital signs are stable she still making urine with a Hilliard catheter, 800 mL. Objective - Vital Signs Vital signs: Vital Signs Temp 99.4 F 10/29/19 12:53 Pulse 73 10/29/19 12:53 Resp 18 10/29/19 12:53 BP 123/65 10/29/19 12:53 Pulse Ox 94 L 10/29/19 12:53 Intake & Output 10/28/19 10/29/19 10/29/19 18:59 06:59 18:59 Intake Total 1950 360 Output Total 2200 600 800 Balance -250 -600 -440 Weight 86.5 kg Intake: Oral 1950 360 Output: Urine 2200 600 800 Uretheral (Hilliard) 600 400 Other: Voiding Method Indwelling Catheter Indwelling Catheter Indwelling Catheter # Voids 1 1 Examination awake alert oriented comfortable HEENT exam no JVP neck is supple no facial asymmetry Lungs are clear to auscultation good air entry bilaterally Heart sounds unremarkable for murmur rub gallop Abdomen soft nontender Extremity exam reveals minimal edema Neurologically awake alert but profoundly weak was able to sit up with some help - Labs CBC & Chem 7: 10/27/19 08:38 10/28/19 07:36 Labs: Abnormal Lab Results - Last 24 Hours (Table) 10/28/19 10/28/19 10/29/19 Range/Units 17:26 20:07 07:28 POC Glucose (mg/dL) 194 H 231 H 162 H (75-99) mg/dL 10/29/19 Range/Units 11:49 POC Glucose (mg/dL) 239 H (75-99) mg/dL Assessment and Plan Assessment: Impression 1. ESRD on dialysis now since this admission, has had for successive dialysis as of 10/28/2019. Neurologically very weak but awake and alert and slowly better 2. Mildly fluid overloaded with minimal edema 3. Anemia of ESRD, hemoglobin is 8.8, going up 4. Iron sufficient, iron saturations 20% on 10/13/2019. Recommendation 1. Next dialysis will be Wednesday 2. She will need rehab and physical therapy 3. Watch hemoglobin and iron and saturation
[2019-10-29 16:53] LABS: Glucose,Whole Blood 192 mg/dL (75-99)
[2019-10-29 20:17] LABS: Glucose,Whole Blood 197 mg/dL (75-99)
[2019-10-29] MEDS: PIOGLITAZONE 30 MG TAB PO SCH (21:13)
[2019-10-30 07:18] LABS: Glucose,Whole Blood 167 mg/dL (75-99)
[2019-10-30] MEDS: ENOXAPARIN 30 MG/0.3 ML SYRINGE SQ SCH (08:09)
[2019-10-30] MEDS: FUROSEMIDE 10 MG/ML 10 ML VIAL IV SCH ×2 (08:09→16:21)
[2019-10-30] MEDS: INSULIN ASPART (NovoLOG) 100 UNIT/ML VIAL SQ SCH ×2 (08:09→12:48)
[2019-10-30] MEDS: PANTOPRAZOLE 40 MG TABLET PO SCH (08:10)
[2019-10-30] MEDS: CALCIUM ACETATE 667 MG TAB PO SCH ×2 (08:10→13:15)
[2019-10-30] MEDS: MAGNESIUM OXIDE 400 MG TAB PO SCH ×2 (08:10→16:21)
[2019-10-30] MEDS: hydrALAZINE HCL 50 MG TAB PO SCH ×2 (09:00→13:17)
--- NOTE | 2019-10-30 10:14 | P.PN ---
Subjective Patient is seen in follow-up for acute kidney injury on chronic kidney disease. Started on hemodialysis this admission. Edema improved. No chest pain or shortness of breath. Potentially going to rehab today. Vital signs are stable. General: The patient appeared well nourished and normally developed. HEENT: Head exam is unremarkable. Neck is without jugular venous distension. LUNGS: Lungs are clear to auscultation and percussion. Breath sounds decreased. HEART: Rate and Rhythm are regular. ABDOMEN: Soft, nontender. EXTREMITITES: 1+ edema. Objective - Vital Signs Vital signs: Vital Signs Temp 98.7 F 10/30/19 05:00 Pulse 83 10/30/19 05:00 Resp 16 10/30/19 05:00 BP 150/69 10/30/19 05:00 Pulse Ox 95 10/30/19 05:00 Intake & Output 10/29/19 10/30/19 10/30/19 18:59 06:59 18:59 Intake Total 360 80 Output Total 1600 250 Balance -1240 -170 Weight 100.5 kg Intake: Intake, IV Titration 80 Amount Sodium Chloride 0.9% 250 80 ml @ 0 mls/hr IV .[facility] ONE Rx#:[id number] Oral 360 Output: Urine 1600 250 Uretheral (Hilliard) 800 250 Other: Voiding Method Indwelling Catheter Toilet Bedside Commode # Voids 1 # Bowel Movements 1 - Labs CBC & Chem 7: 10/27/19 08:38 10/28/19 07:36 Labs: Abnormal Lab Results - Last 24 Hours (Table) 10/29/19 10/29/19 10/29/19 Range/Units 11:49 16:44 20:15 POC Glucose (mg/dL) 239 H 192 H 197 H (75-99) mg/dL 10/30/19 Range/Units 07:06 POC Glucose (mg/dL) 167 H (75-99) mg/dL Assessment and Plan Plan: Assessment: 1. Acute kidney injury secondary to ATN secondary to infection and cardiorenal syndrome. Currently hemodialysis dependent. No evidence of hydronephrosis noted on ultrasound done in August 2019. 2. Chronic kidney disease. Need to establish baseline. Creatinine was 0.9 in September 2015 but recently has been near 3. Etiology is diabetic kidney disease. 3. Volume overload. Status post Lasix drip. Improving with ultrafiltration. 4. Chronic kidney disease mineral bone disease maintained on PhosLo. 5. Hypertension with chronic kidney disease. Stable. 6. Metabolic acidosis secondary to chronic kidney disease. Resolved. 7. Anemia of chronic kidney disease. Iron deficiency noted. Status post IV iron. Maintained on Aranesp. Plan: Hemodialysis today and again tomorrow. She will be maintained on a Wednesday schedule. Stable for discharge after dialysis today.
[2019-10-30 11:08] LABS: Glucose,Whole Blood 175 mg/dL (75-99)
[2019-10-30 13:04] VITALS: RESP 18; TEMP 97.9
[2019-10-30] MEDS: metOLazone 2.5 MG TAB PO SCH (13:16)
[2019-10-30] MEDS: ASPIRIN 81 MG PO SCH (13:17)
[2019-10-30] MEDS: amLODIPine 10 MG TAB PO SCH (13:17)
[2019-10-30] MEDS: lisinopriL 10 MG TAB PO SCH (13:17)
[2019-10-30] MEDS: MULTIVITAMINS, THERA 1 EACH TAB PO SCH (13:21)
[2019-10-30 14:28] VITALS: BMI 33.7
[2019-10-30] MEDS: HYDROcodone/APAP 5-325MG 1 EACH TAB PO PRN (14:55)
--- NOTE | 2019-10-30 15:41 | P.DS ---
Providers Date of admission: 10/15/19 11:02 Expected date of discharge: 10/30/19 Attending physician: Juan Concepcion Consults: 10/13/19 17:49 Consult Physician Routine Consulting Provider: Mehul Coker Consult Reason/Comments: antonio Do you want consulting provider notified?: Yes Consult Physician Routine Consulting Provider: Kenya Bocanegra Consult Reason/Comments: arf Do you want consulting provider notified?: Yes 10/17/19 10:20 Consult Physician Urgent Consulting Provider: Dandre Yanes Consult Reason/Comments: poss PE, increased SOB Do you want consulting provider notified?: Yes 10/24/19 10:17 Consult Physician Urgent Consulting Provider: Antonio Sheikh Consult Reason/Comments: Dialysis catheter placement Do you want consulting provider notified?: Already Contacted Primary care physician: Kristy Ortega [facility] Course: Chief Complaint: Tired History of presenting complaint: This is a [address] Kristy Ortega. Patient was just at [facility] from October 08. Admitted there with a creatinine of 3.6. Prior to discharge a day ago creatinine was down to 3.2. Seen by Dr. Bocanegra. Renal ultrasound did not show any major abnormality. Corticomedullary differentiation was maintained. Patient came home and felt tired lethargic. Rundown. Appetite has been okay. [place] cold. She decided to come back in again. Patient has known diabetes. [place] to have diabetic nephropathy. Chronic stable medical conditions include diabetes, GERD, hypertension, hyperlipidemia, obstructive sleep apnea. Patient last labs here on September 04 were 2.93. Also found to be bradycardic. Patient does use a walker. Admitted with metabolic encephalopathy. Ambien and Xanax was discontinued. Patient also found to be hypothermic. Suma hugger given. Given IV fluids. Renal function tolerated. Started on hemodialysis. Today-received hemodialysis today. Eating well. Had a bowel movement. Discussed with the patient. Hemodialysis schedule-Wednesday Consultation: Nephrology Dr. Sheikh [facility] Physical examination: VITAL SIGNS: 97.9, 85, 18, 138/65, 95% on room air GENERAL: Sitting up in the bed, awake, right jugular-hemodialysis catheter EYES: Pupils equal. Conjunctiva normal. HEART: First and second heart sounds are normal; no edema. LUNGS: Respiratory rate normal; decreased breath sounds. ABDOMEN: Soft, nontender, liver spleen not palpable, no masses palpable. PSYCH: AO 3 mood affect normal MUSCULAR skeletal: Evidence of OA in the hands INVESTIGATIONS, reviewed in the clinical context: Potassium 4.3 bun 26 creatinine 2.74 Previous testing White count 3.6 hemoglobin 9.1 platelets 146 potassium 4.9 bun 50 creatinine 3.11 UA showing moderate leukoesterase, WBC, tense, 7 epithelial cells. Urine culture negative EKG tracing personally reviewed by me-sinus bradycardia Chest x-ray film personally reviewed by me-borderline cardiomegaly Assessment: -Significant bradycardia patient is on Toprol-XL 200 mg. -Acute UTI from cystitis-culture negative -Obesity BMI 32.5 -Depression otherwise specified -Metabolic encephalopathy could be from medications. -GERD -Essential hypertension -Diabetes mellitus type 2 -Acute kidney injury likely ATN secondary to infection and cardiac renal syndrome. -Diabetic nephropathy, CK D stage IV -Metabolic acidosis from kidney failure -Hypothermic-metabolic on Suma hugger -Metabolic chronic kidney disease minimal bone disease - Disposition: [facility] facility . Patient Condition at Discharge: Fair Plan - Discharge Summary New Discharge Prescriptions: New hydrALAZINE HCL [Apresoline] 100 mg PO QID tab Darbepoetin Duglas [Aranesp] 40 mcg SQ Q7D syringe cloNIDine 0.3 MG/24HR PATCH [Catapres-TTS] 1 patch TRANSDERM Q7D patch Melatonin 3 mg PO HS PRN tablet PRN Reason: Insomnia Calcium Carbonate [Tums] 1,000 mg PO Q4HR PRN chew PRN Reason: Dyspepsia Acetaminophen Tab [Tylenol] 650 mg PO Q6HR PRN tab PRN Reason: Mild Pain Or Fever > 100.5 metOLazone [Zaroxolyn] 2.5 mg PO DAILY tab lisinopriL [Zestril] 10 mg PO DAILY tab Continue amLODIPine [Norvasc] 10 mg PO DAILY Multivitamins, Thera [Multivitamin (formulary)] 1 tab PO DAILY Aspirin EC [Ecotrin Low Dose] 81 mg PO DAILY Pioglitazone [Actos] 30 mg PO HS Magnesium Oxide [Day] 500 mg PO TID Pantoprazole [Protonix] 40 mg PO AC-BRKFST 30 Days #30 tablet. Sodium Bicarbonate Tab 650 mg PO BID 30 Days #60 tab Calcium Acetate [PhosLo] 667 mg PO AC-TID Discontinued ALPRAZolam [Xanax] 0.25 mg PO BID PRN PRN Reason: Anxiety Zolpidem [Ambien] 10 mg PO HS PRN PRN Reason: sleep Metoprolol Succinate [Toprol XL] 200 mg PO DAILY hydrALAZINE HCL [Apresoline] 50 mg PO TID 30 Days #90 tab DULoxetine HCL [Cymbalta] 60 mg PO DIRECTED DULoxetine HCL [Cymbalta] 30 mg PO DIRECTED Losartan Potassium 50 mg PO DAILY No Action Furosemide [Lasix] 20 mg PO DAILY Discharge Medication List Multivitamins, Thera [Multivitamin (formulary)] 1 tab PO DAILY 05/07/14 [History] amLODIPine [Norvasc] 10 mg PO DAILY 05/07/14 [History] Aspirin EC [Ecotrin Low Dose] 81 mg PO DAILY 09/19/15 [History] Furosemide [Lasix] 20 mg PO DAILY 09/01/19 [History] Magnesium Oxide [Day] 500 mg PO TID 09/01/19 [History] Pioglitazone [Actos] 30 mg PO HS 09/01/19 [History] Pantoprazole [Protonix] 40 mg PO AC-BRKFST 30 Days #30 tablet. 09/05/19 [Rx] Sodium Bicarbonate Tab 650 mg PO BID 30 Days #60 tab 09/05/19 [Rx] Calcium Acetate [PhosLo] 667 mg PO AC-TID 09/07/19 [History] Acetaminophen Tab [Tylenol] 650 mg PO Q6HR PRN tab 10/30/19 [Rx] Calcium Carbonate [Tums] 1,000 mg PO Q4HR PRN chew 10/30/19 [Rx] Darbepoetin Duglas [Aranesp] 40 mcg SQ Q7D syringe 10/30/19 [Rx] Melatonin 3 mg PO HS PRN tablet 10/30/19 [Rx] cloNIDine 0.3 MG/24HR PATCH [Catapres-TTS] 1 patch TRANSDERM Q7D patch 10/30/19 [Rx] hydrALAZINE HCL [Apresoline] 100 mg PO QID tab 10/30/19 [Rx] lisinopriL [Zestril] 10 mg PO DAILY tab 08/24/20 [Rx] metOLazone [Zaroxolyn] 2.5 mg PO DAILY tab 10/30/19 [Rx] Follow up Appointment(s)/Referral(s): [facility], [NON-STAFF] - Kristy Ortega MD [Primary Care Provider] - 10/31/19 8:00 am
[2019-10-30 16:39] VITALS: BP 140/63; PULSE 94
[2019-10-30 16:52] LABS: Glucose,Whole Blood 288 mg/dL (75-99)
== END 2019-10-30 17:15 | DRG 673 ==
LOC: EC 14:51 → 5NMEDONC 17:49 → OBSVTOIN 10-15 11:02
PROVIDERS: ADMIT Hospitalist; ATTEND Hospitalist
PROC: 05HC33Z Insertion of Infusion Device into Left Basilic Vein, Percutaneous Approach (ICD-10-PCS; 2019-10-19)
PROC: 0JH63XZ Insertion of Tunneled Vascular Access Device into Chest Subcutaneous Tissue and Fascia, Percutaneous Approach (ICD-10-PCS; principal; 2019-10-24 13:30)
PROC: 02HV33Z Insertion of Infusion Device into Superior Vena Cava, Percutaneous Approach (ICD-10-PCS; 2019-10-24 13:30)
PROC: 5A1D70Z Performance of Urinary Filtration, Intermittent, Less than 6 Hours Per Day (ICD-10-PCS; 2019-10-26)
DX: N17.0 Acute kidney failure with tubular necrosis (principal); G93.41 Metabolic encephalopathy; J96.01 Acute respiratory failure with hypoxia; I50.33 Acute on chronic diastolic (congestive) heart failure; I13.2 Hypertensive heart and chronic kidney disease with heart failure and with stage 5 chronic kidney disease, or end stage renal disease; E87.2 Acidosis; L03.116 Cellulitis of left lower limb; R00.1 Bradycardia, unspecified; N18.4 Chronic kidney disease, stage 4 (severe); Z20.828 Contact with and (suspected) exposure to other viral communicable diseases; N30.90 Cystitis, unspecified without hematuria; E83.9 Disorder of mineral metabolism, unspecified; D63.1 Anemia in chronic kidney disease; E11.22 Type 2 diabetes mellitus with diabetic chronic kidney disease; R40.2362 Coma scale, best motor response, obeys commands, at arrival to emergency department; R40.2142 Coma scale, eyes open, spontaneous, at arrival to emergency department; R40.2252 Coma scale, best verbal response, oriented, at arrival to emergency department; K21.9 Gastro-esophageal reflux disease without esophagitis; I25.10 Atherosclerotic heart disease of native coronary artery without angina pectoris; M19.90 Unspecified osteoarthritis, unspecified site; F41.9 Anxiety disorder, unspecified; E87.5 Hyperkalemia; G47.33 Obstructive sleep apnea (adult) (pediatric); E78.5 Hyperlipidemia, unspecified; E66.9 Obesity, unspecified; F32.9 Major depressive disorder, single episode, unspecified; I07.1 Rheumatic tricuspid insufficiency; R32 Unspecified urinary incontinence; I16.0 Hypertensive urgency; R68.0 Hypothermia, not associated with low environmental temperature; R53.81 Other malaise; T50.1X5A Adverse effect of loop [high-ceiling] diuretics, initial encounter; Z68.37 Body mass index [BMI] 37.0-37.9, adult; Z79.899 Other long term (current) drug therapy; Z79.84 Long term (current) use of oral hypoglycemic drugs; Z79.82 Long term (current) use of aspirin; Z86.73 Personal history of transient ischemic attack (TIA), and cerebral infarction without residual deficits; Z96.1 Presence of intraocular lens; Z98.890 Other specified postprocedural states; Z87.891 Personal history of nicotine dependence; Z87.440 Personal history of urinary (tract) infections; Z86.19 Personal history of other infectious and parasitic diseases; Z88.1 Allergy status to other antibiotic agents; Z88.0 Allergy status to penicillin; Z88.8 Allergy status to other drugs, medicaments and biological substances
CPT/HCPCS: 36410; 36415; 36558; 36600; 70450; 71045; 71046; 76937; 78582; 80048; 80053; 81001; 82140; 82550; 82728; 82805; 83540; 83550; 83605; 83735; 83880; 84100; 84132; 84439; 84443; 84484; 84550; 85025; 85379; 85610; 85730; 86038; 86160; 86225; 86255; 86334; 86335; 86704; 86706; 87086; 87340; 87635; 90935; 93005; 93306; 93970; 96361; 96365; 99285

== ENCOUNTER → 2020-03-18 | Outpatient (CLI) | payer MEDICARE, OTHER ==
[2020-03-18 13:57] LABS: Potassium 5.3 mmol/L (3.5-5.1)
[2020-03-18 14:02] LABS: Basophils % (A) 1 %; Eosinophils # (A) 0.1 k/uL (0-0.7); Eosinophils % (A) 1 %; HCT 32.5 % (34.0-46.0); Lymphocytes # (A) 1.3 k/uL (1.0-4.8); Lymphocytes % (A) 19 %; MCH 31.2 pg (25.0-35.0); MCHC 33.8 g/dL (31.0-37.0); MCV 92.4 fL (80.0-100.0); Mean Platelet Volume 7.7; Monocytes # (A) 0.3 k/uL (0-1.0); Monocytes % (A) 5 %; Neutrophils # (A) 4.8 k/uL (1.3-7.7); Neutrophils % (A) 72 %; Platelet Count 204 k/uL (150-450); RBC 3.51 m/uL (3.80-5.40); RDW 13.5 % (11.5-15.5); WBC 6.7 k/uL (3.8-10.6)
== END | disposition home or self-care (01) ==
LOC: LABPAT 12:25
PROVIDERS: ATTEND Surgery
DX: Z01.818 Encounter for other preprocedural examination (principal); N18.6 End stage renal disease
CPT/HCPCS: 36415; 80051; 82565; 84520; 85025

== ENCOUNTER 2020-03-21 10:46 | Day surgery (SDC) | payer MEDICARE ==
[2020-03-15 11:36] VITALS: BMI 26.6
[~2020-03-21 10:46] MED LIST: CLINDAMYCIN 900 MG in DEXTROSE 5% IN WATER 50 ML IVPB PRN; DEXAMETHASONE SOD PHOSPHATE 4 MG/ML 1 ML VIAL IV ONE; HYDROmorphone 0.5 MG/0.5 ML SYRINGE IVP PRN; LACTATED RINGERS 1,000 ML IV SCH; LIDOCAINE 1% (10MG/ML) FOR IV START INTRADERMA PRN; MIDAZOLAM 2 MG/2 ML VIAL IV PRN; ONDANSETRON 4 MG/2 ML VIAL IVP ONE
[2020-03-21 11:36] VITALS: TEMP 98.5
[2020-03-21 11:43] LABS: Glucose,Whole Blood 165 mg/dL (75-99)
[2020-03-21] MEDS ORDERED: SODIUM CHLORIDE 0.9% 1,000 ML IV ONE (11:43)
[2020-03-21] MEDS ORDERED: MIDAZOLAM 2 MG/2 ML VIAL IVP ONE (12:24)
[2020-03-21] MEDS ORDERED: MIDAZOLAM 2 MG/2 ML VIAL ONE (12:36)
[2020-03-21] MEDS ORDERED: PROPOFOL 10 MG/ML 20 ML VIAL IV ONE (12:36)
[2020-03-21] MEDS ORDERED: diphenhydrAMINE 50 MG/ML 1 ML VIAL ONE (12:36)
[2020-03-21] MEDS ORDERED: ROPIVACAINE 5 MG/ML 30 ML VIAL ONE (12:36)
[2020-03-21] MEDS ORDERED: PHENYLEPHRINE 10 MG/ML VIAL ONE (12:36)
[2020-03-21] MEDS ORDERED: LIDOCAINE 1% INJ 10MG/ML (20 ML MDV) ONE (12:36)
[2020-03-21] MEDS ORDERED: HEPARIN SODIUM,PORCINE 5,000 UNIT/ML 1 ML VIAL ONE (12:36)
[2020-03-21] MEDS ORDERED: fentaNYL (PF) 50 MCG/ML 2 ML AMP ONE (12:36)
[2020-03-21 12:43] VITALS: RESP 16
[2020-03-21] MEDS ORDERED: LIDOCAINE 1% INJ 10MG/ML (20 ML MDV) SQ ONE ×2 (13:32)
[2020-03-21] MEDS ORDERED: BUPIVACAINE (PF) 0.5% 30 ML VIAL SQ ONE ×2 (13:33)
[2020-03-21] MEDS ORDERED: HEPARIN SODIUM,PORCINE 2,000 UNIT in SODIUM CHLORIDE 0.9% 500 ML 500 ML IRRIGATION ONE (13:36)
--- NOTE | 2020-03-21 13:36 | P.ANPRN ---
Procedure Note - Anesthesia - Nerve Block Performed Left Supraclavicular Time Out Performed: Yes (:23) Date of Procedure: 03/21/20 Procedure Start Time: : Procedure Stop Time: :37 Location of Patient: PreOp Indication: Acute Post-Operative Pain, Requested by Surgeon (Dr Hilliard) Sedation Type: Sedate with meaningful contact maintained Preparation: Sterile Prep Position: Supine Catheter: None Needle Types: Pajunk Needle Gauge: Other (see comment) (22g) Ultrasound used to visualize needle placement: Yes Ultrasound used to observe medication spread: Yes Injectate: 0.5% Ropivacaine (see comment for volume) (20cc) Blood Aspirated: No Pain Paresthesia on Injection Noted: No Resistance on Injection: Normal Image Stored and Saved: Yes Events: Uneventful and Well Tolerated
--- NOTE | 2020-03-21 14:32 | P.OP ---
Date of Procedure: 03/21/20 Description of Procedure: Preoperative diagnosis: [End stage renal disease] Postoperative diagnosis: Same Procedure: [Left upper extremity radiocephalic fistula creation] Surgeon: Jen Hilliard D.O. EBL: [10 mL] IV fluids: [See records] Urine output: [Not measured] Drains: [None] Complications: [None immediately apparent] Condition: [Stable to recovery] Operative indication and findings: [The patient is a 65 yo female with end-stage renal disease who required a tunneled dialysis catheter placement in the recent past. She underwent an ultrasound which showed an adequate sized cephalic vein but multiple areas of branching. She also has adequate size basilic veins bilaterally. Discussion was had regarding going forth with a radial cephalic fistula creation. Risks and benefits were discussed and she seemingly understood and was willing to proceed] Procedure in detail: []Patient was taken to the operative suite and placed in supine position. The left upper extremity is prepped and draped in usual sterile fashion. A preprocedure timeout was performed, all parties were in agreement. The ultrasound was utilized and the larger branches cephalic vein was identified. It did split at the distal wrist into 2 equal size branches. The one more medial was chosen and an incision was made in between the radial artery and the cephalic vein. Is carried down through the subcu tissues and initially the cephalic vein was identified it was encircled and dissected free for certain length. Attention was then turned towards the radial artery. It was dissected free and encircled proximally and distally. The patient was heparinized. The cephalic vein was ligated distally with 6-0 silk. It was serially dilated up to a 3-1/2. It was flushed with heparinized saline. An arteriotomy was created after flow was occluded through the vessel and anastomosis was created to the cephalic vein with 7-0 Prolene. The artery was allowed to backbleed and prior to opening the debris was flushed through the fistula. Continuity was restored. There was adequate flow through the fistula with a distal pulse maintained. There was a large branch of the cephalic vein and it was decided that in order to best give this the chance of maturing that would need to be ligated and incision was made over the cephalic vein after the ultrasound was utilized to identify the location it was encircled and tied off with a 3-0 silk. Flow was maintained through the fistula following this. The areas were irrigated with saline. The sites were closed with 3-0 Vicryl and 4-0 Monocryl with skin glue. The patient was allowed awaken from anesthesia and transferred to recovery in stable condition having tolerated the procedure well Plan - Discharge Summary Discharge Rx Participant: Yes New Discharge Prescriptions: New HYDROcodone/APAP 5-325MG [[place] 5-325] 1 tab PO Q4HR PRN 3 Days #18 tab PRN Reason: Pain No Action amLODIPine [Norvasc] 10 mg PO HS Multivitamins, Thera [Multivitamin (formulary)] 1 tab PO DAILY Aspirin EC [Ecotrin Low Dose] 81 mg PO DAILY Furosemide [Lasix] 20 mg PO BID Pantoprazole [Protonix] 40 mg PO AC-BRKFST 30 Days #30 tablet. Sodium Bicarbonate Tab 650 mg PO BID 30 Days #60 tab Acetaminophen Tab [Tylenol] 650 mg PO Q6HR PRN tab PRN Reason: Mild Pain Or Fever > 100.5 cloNIDine HCL [Catapres] 0.1 mg PO DIRECTED cloNIDine HCL [Catapres] 0.1 mg PO MOWEFR DULoxetine HCL [Cymbalta] 30 mg PO DAILY hydrALAZINE HCL [Apresoline] 25 mg PO TID Melatonin 5 mg PO HS Discharge Medication List Multivitamins, Thera [Multivitamin (formulary)] 1 tab PO DAILY 05/07/14 [History] amLODIPine [Norvasc] 10 mg PO HS 05/07/14 [History] Aspirin EC [Ecotrin Low Dose] 81 mg PO DAILY 09/19/15 [History] Furosemide [Lasix] 20 mg PO BID 09/01/19 [History] Pantoprazole [Protonix] 40 mg PO AC-BRKFST 30 Days #30 tablet. 09/05/19 [Rx] Sodium Bicarbonate Tab 650 mg PO BID 30 Days #60 tab 09/05/19 [Rx] Acetaminophen Tab [Tylenol] 650 mg PO Q6HR PRN tab 10/30/19 [Rx] DULoxetine HCL [Cymbalta] 30 mg PO DAILY 03/15/20 [History] Melatonin 5 mg PO HS 03/15/20 [History] cloNIDine HCL [Catapres] 0.1 mg PO DIRECTED 03/15/20 [History] cloNIDine HCL [Catapres] 0.1 mg PO MOWEFR 03/15/20 [History] hydrALAZINE HCL [Apresoline] 25 mg PO TID 03/15/20 [History] HYDROcodone/APAP 5-325MG [[place] 5-325] 1 tab PO Q4HR PRN 3 Days #18 tab 03/21/20 [Rx] Follow up Appointment(s)/Referral(s): Jen Hilliard DO [STAFF PHYSICIAN] - 2 Weeks Activity/Diet/Wound Care/Special Instructions: May shower starting tomorrow. Resume regular activities. Resume regular diet. Do not sleep on left arm. No blood pressures or IVs and left arm
--- NOTE | 2020-03-21 14:34 | P.HPIHPCON ---
History of Present Illness H&P Date: 03/21/20 The patient is a 65 row female who has end-stage renal disease who requires access for dialysis. She underwent an ultrasound in our office which showed adequate cephalic and basilic veins bilaterally she denies a fevers. Chills, nausea, vomiting or issues otherwise Consent for Procedure: I have explained the operation/procedure to the patient, including the risks, benefits, side effects, alternative therapies (including not receiving the proposed treatment or service), the likelihood of the patient achieving his/her goals, and potential recuperation problems for the procedure/sedation/analgesia, as well as any blood products, if indicated. I also explained to the patient the risks, benefits and side effects of the alternatives, as well as the risks related to not receiving the proposed procedure, care, treatment, or services. Past Medical History Past Medical History: Coronary Artery Disease (CAD), CVA/TIA, Diabetes Mellitus, Dialysis, GERD/Reflux, Hyperlipidemia, Hypertension, Osteoarthritis (OA), Renal Disease, Sleep Apnea/CPAP/BIPAP Additional Past Medical History / Comment(s): hx varicose veins, stroke x 3- last 1 yr ago - no residual effects, TIA's , no CPAP used, hiatal hernia, hemodialysis [facility], hemodialysis [facility] History of Any Multi-Drug Resistant Organisms: None Reported Past Surgical History: Breast Surgery, Heart Catheterization, Orthopedic Surgery Additional Past Surgical History / Comment(s): carotid endarterectomy, Lumpectomy right breast, Carpel Tunnel Surgery bilat wrists, pilonidal cyst removal, vericose vein removal, moisés cataracts Past Anesthesia/Blood Transfusion Reactions: Previous Problems w/ Anesthesia, Motion Sickness Additional Past Anesthesia/Blood Transfusion Reaction / Comment(s): had trouble waking up after surgery Smoking Status: Former smoker - Past Family History Mother Family Medical History: Cancer Father Family Medical History: Cancer Brother(s) Family Medical History: Cancer Daughter(s) Additional Family Medical History / Comment(s): fast heart rate Medications and Allergies Home Medications Medication Instructions Recorded Confirmed Type Multivitamins, Thera [Multivitamin 1 tab PO DAILY 05/07/14 03/21/20 History (formulary)] amLODIPine [Norvasc] 10 mg PO HS 05/07/14 03/21/20 History Aspirin EC [Ecotrin Low Dose] 81 mg PO DAILY 09/19/15 03/21/20 History Furosemide [Lasix] 20 mg PO BID 09/01/19 03/21/20 History Pantoprazole [Protonix] 40 mg PO AC-BRKFST 30 Days #30 09/05/19 03/21/20 Rx tablet. Sodium Bicarbonate Tab 650 mg PO BID 30 Days #60 tab 09/05/19 03/21/20 Rx Acetaminophen Tab [Tylenol] 650 mg PO Q6HR PRN tab 10/30/19 03/21/20 Rx DULoxetine HCL [Cymbalta] 30 mg PO DAILY 03/15/20 03/21/20 History Melatonin 5 mg PO HS 03/15/20 03/21/20 History cloNIDine HCL [Catapres] 0.1 mg PO DIRECTED 03/15/20 03/21/20 History cloNIDine HCL [Catapres] 0.1 mg PO MOWEFR 03/15/20 03/21/20 History hydrALAZINE HCL [Apresoline] 25 mg PO TID 03/15/20 03/21/20 History HYDROcodone/APAP 5-325MG [[place] 1 tab PO Q4HR PRN 3 Days #18 tab 03/21/20 Rx 5-325] Allergies Allergy/AdvReac Type Severity Reaction Status Date / Time captopril Allergy Cough Verified 03/21/20 11:30 cephalexin monohydrate Allergy Rash/Hives Verified 03/21/20 11:30 [From Keflex] Penicillins Allergy Rash/Hives Verified 03/21/20 11:30 Surgical - Exam Vital Signs Temp Pulse Resp BP Pulse Ox 98.5 F 96 18 179/81 100 03/21/20 11:33 03/21/20 11:33 03/21/20 11:33 03/21/20 11:33 03/21/20 11:33 Gen a pleasant cooperative female in no acute distress. HEENT is cephalic, atraumatic, excellent motion intact. Heart is regular. Lungs are clear bi laterally. Abdomen soft, nontender nondistended. Extremity show no clubbing, cyanosis or edema. Palp or radial pulses bilaterally. Results - Labs 03/21/20 11:45 Abnormal Lab Results - Last 24 Hours (Table) 03/21/20 03/21/20 Range/Units 11:39 11:45 Potassium 5.7 H (3.5-5.1) mmol/L POC Glucose (mg/dL) 165 H (75-99) mg/dL Diabetes panel 03/21/20 Range/Units 11:45 Potassium 5.7 H (3.5-5.1) mmol/L Pituitary panel 03/21/20 Range/Units 11:45 Potassium 5.7 H (3.5-5.1) mmol/L Adrenal panel 03/21/20 Range/Units 11:45 Potassium 5.7 H (3.5-5.1) mmol/L Assessment and Plan Assessment: End-stage renal disease Plan: Plan fistula creation today. Risks and benefits discussed. Patient seemingly understands and willing to proceed
[2020-03-21 15:31] VITALS: BP 122/74; PULSE 88
== END 2020-03-21 15:59 | disposition home or self-care (01) ==
LOC: OR 10:46
PROVIDERS: ATTEND Surgery
DX: E11.22 Type 2 diabetes mellitus with diabetic chronic kidney disease (principal); N18.6 End stage renal disease; I12.0 Hypertensive chronic kidney disease with stage 5 chronic kidney disease or end stage renal disease; I25.10 Atherosclerotic heart disease of native coronary artery without angina pectoris; K21.9 Gastro-esophageal reflux disease without esophagitis; E78.5 Hyperlipidemia, unspecified; M19.90 Unspecified osteoarthritis, unspecified site; K44.9 Diaphragmatic hernia without obstruction or gangrene; K08.409 Partial loss of teeth, unspecified cause, unspecified class; G47.33 Obstructive sleep apnea (adult) (pediatric); Z88.0 Allergy status to penicillin; Z88.1 Allergy status to other antibiotic agents; Z86.73 Personal history of transient ischemic attack (TIA), and cerebral infarction without residual deficits; Z86.79 Personal history of other diseases of the circulatory system; Z99.2 Dependence on renal dialysis; Z98.890 Other specified postprocedural states; Z98.62 Peripheral vascular angioplasty status; Z86.69 Personal history of other diseases of the nervous system and sense organs; Z87.2 Personal history of diseases of the skin and subcutaneous tissue; Z98.41 Cataract extraction status, right eye; Z98.42 Cataract extraction status, left eye; Z91.89 Other specified personal risk factors, not elsewhere classified; Z87.898 Personal history of other specified conditions; Z87.891 Personal history of nicotine dependence; Z79.899 Other long term (current) drug therapy; Z79.82 Long term (current) use of aspirin; Z79.891 Long term (current) use of opiate analgesic; Z88.8 Allergy status to other drugs, medicaments and biological substances; Z80.9 Family history of malignant neoplasm, unspecified; Z82.49 Family history of ischemic heart disease and other diseases of the circulatory system
CPT/HCPCS: 36821; 64415; 76942; 86900; 86901; 84132; 86850; J2250; J1200; J1644; J1100; J2370; J2405; J2001; J3010; J2795; J2704; 64999

== ENCOUNTER 2020-05-30 08:23 | Day surgery (SDC) | payer MEDICARE ==
[2020-05-29 14:48] VITALS: BMI 29.2
[2020-05-30 09:30] VITALS: TEMP 97.7
[2020-05-30] MEDS ORDERED: SODIUM CHLORIDE 0.9% 1,000 ML IV ONE (09:45)
[2020-05-30] MEDS ORDERED: ONDANSETRON 4 MG/2 ML VIAL ONE (09:55)
[2020-05-30 09:57] LABS: Basophils % (A) 1 %; Eosinophils # (A) 0.1 k/uL (0-0.7); Eosinophils % (A) 3 %; HCT 32.9 % (34.0-46.0); HGB 11.3 gm/dL (11.4-16.0); Lymphocytes # (A) 1.2 k/uL (1.0-4.8); Lymphocytes % (A) 26 %; MCH 30.8 pg (25.0-35.0); MCHC 34.3 g/dL (31.0-37.0); MCV 89.7 fL (80.0-100.0); Mean Platelet Volume 7.7; Monocytes # (A) 0.5 k/uL (0-1.0); Monocytes % (A) 10 %; Neutrophils # (A) 2.7 k/uL (1.3-7.7); Neutrophils % (A) 59 %; Platelet Count 173 k/uL (150-450); RBC 3.67 m/uL (3.80-5.40); RDW 13.4 % (11.5-15.5); WBC 4.5 k/uL (3.8-10.6)
[2020-05-30] MEDS ORDERED: ONDANSETRON 4 MG/2 ML VIAL IVP ONE (09:57)
[2020-05-30] MEDS ORDERED: DEXAMETHASONE SOD PHOSPHATE 4 MG/ML 1 ML VIAL IV ONE (09:57)
[2020-05-30 10:05] LABS: Potassium 4.8 mmol/L (3.5-5.1)
--- NOTE | 2020-05-30 10:30 | P.HPIHPCON ---
History of Present Illness H&P Date: 05/30/20 Ashlie is a 65-year-old female with end-stage renal disease who presented with a tunneled dialysis catheter in need of dialysis access. A left upper extremity radiocephalic fistula was created in March. She underwent her 6 week ultrasound which did reveal partial maturity with some branches Consent for Procedure: I have explained the operation/procedure to the patient, including the risks, benefits, side effects, alternative therapies (including not receiving the proposed treatment or service), the likelihood of the patient achieving his/her goals, and potential recuperation problems for the procedure/sedation/analgesia, as well as any blood products, if indicated. I also explained to the patient the risks, benefits and side effects of the alternatives, as well as the risks related to not receiving the proposed procedure, care, treatment, or services. Past Medical History Past Medical History: Coronary Artery Disease (CAD), CVA/TIA, Diabetes Mellitus, Dialysis, GERD/Reflux, Hyperlipidemia, Hypertension, Osteoarthritis (OA), Renal Disease, Sleep Apnea/CPAP/BIPAP Additional Past Medical History / Comment(s): Hx varicose veins, stroke X3- last 1 yr ago - no residual effects, TIA's, no CPAP used, hiatal hernia, hemodialysis , , . (missing dialysis this week, going [facility] instead.) Recent weight loss. History of Any Multi-Drug Resistant Organisms: None Reported Past Surgical History: Breast Surgery, Heart Catheterization, Orthopedic Surgery Additional Past Surgical History / Comment(s): Carotid Endarterectomy, lumpectomy right breast, Carpel Tunnel Surgery bilateral wrists, pilonidal cyst removal, varicose vein removal, bilateral cataracts removed, left wrist surgery. Past Anesthesia/Blood Transfusion Reactions: Previous Problems w/ Anesthesia, Motion Sickness Additional Past Anesthesia/Blood Transfusion Reaction / Comment(s): Had trouble waking up after surgery. Past Psychological History: No Psychological Hx Reported Smoking Status: Former smoker Past Alcohol Use History: Occasional Additional Past Alcohol Use History / Comment(s): Quit smoking 10 yrs ago, started smoking as a teen, 1 PPD. Past Drug Use History: None Reported - Past Family History Mother Family Medical History: Cancer Father Family Medical History: Cancer Brother(s) Family Medical History: Cancer Daughter(s) Additional Family Medical History / Comment(s): fast heart rate Medications and Allergies Home Medications Medication Instructions Recorded Confirmed Type Multivitamins, Thera [Multivitamin 1 tab PO DAILY 05/07/14 05/29/20 History (formulary)] amLODIPine [Norvasc] 10 mg PO HS 05/07/14 05/30/20 History Aspirin EC [Ecotrin Low Dose] 81 mg PO DAILY 09/19/15 05/29/20 History Furosemide [Lasix] 20 mg PO BID 09/01/19 05/30/20 History Pantoprazole [Protonix] 40 mg PO AC-BRKFST 30 Days #30 09/05/19 05/30/20 Rx tablet. Sodium Bicarbonate Tab 650 mg PO BID 30 Days #60 tab 09/05/19 05/30/20 Rx Acetaminophen Tab [Tylenol] 650 mg PO Q6HR PRN tab 10/30/19 05/30/20 Rx DULoxetine HCL [Cymbalta] 30 mg PO QAM 03/15/20 05/30/20 History Melatonin 5 mg PO HS 03/15/20 05/30/20 History cloNIDine HCL [Catapres] 0.1 mg PO DAILY 03/15/20 05/30/20 History hydrALAZINE HCL [Apresoline] 25 mg PO BID 03/15/20 05/30/20 History HYDROcodone/APAP 5-325MG [[place] 1 tab PO Q4HR PRN 3 Days #18 tab 03/21/20 Rx 5-325] Insulin Glargine [Lantus] 10 unit SQ HS 05/29/20 05/30/20 History Allergies Allergy/AdvReac Type Severity Reaction Status Date / Time captopril Allergy Cough Verified 05/30/20 09:32 cephalexin monohydrate Allergy Rash/Hives Verified 05/30/20 09:32 [From Keflex] Penicillins Allergy Rash/Hives Verified 05/30/20 09:32 Surgical - Exam Vital Signs Temp Pulse Resp BP Pulse Ox 97.7 F 79 16 169/76 98 05/30/20 09:29 05/30/20 09:29 05/30/20 09:29 05/30/20 09:29 05/30/20 09:29 Genitals a pleasant cooperative female in no acute distress. HEENT is normocephalic, atraumatic, extraocular motion intact. Heart is regular. Lungs are clear bilaterally. Abdomen is soft, nontender nondistended. Left upper extremity fistula with good thrill. Palpable radial pulse. Normal mood and affect. Cranial nerves II through XII grossly intact Results - Labs 05/30/20 09:30 05/30/20 09:30 Abnormal Lab Results - Last 24 Hours (Table) 05/30/20 05/30/20 Range/Units 09:30 09:30 RBC 3.67 L (3.80-5.40) m/uL Hgb 11.3 L (11.4-16.0) gm/dL Hct 32.9 L (34.0-46.0) % BUN 63 H (7-17) mg/dL Creatinine 4.55 H (0.52-1.04) mg/dL Glucose 163 H (74-99) mg/dL Diabetes panel 05/30/20 Range/Units 09:30 Sodium 137 (137-145) mmol/L Potassium 4.8 (3.5-5.1) mmol/L Chloride 101 (98-107) mmol/L Carbon Dioxide 24 (22-30) mmol/L BUN 63 H (7-17) mg/dL Creatinine 4.55 H (0.52-1.04) mg/dL Glucose 163 H (74-99) mg/dL Calcium 10.0 (8.4-10.2) mg/dL Calcium panel 05/30/20 Range/Units 09:30 Calcium 10.0 (8.4-10.2) mg/dL Pituitary panel 05/30/20 Range/Units 09:30 Sodium 137 (137-145) mmol/L Potassium 4.8 (3.5-5.1) mmol/L Chloride 101 (98-107) mmol/L Carbon Dioxide 24 (22-30) mmol/L BUN 63 H (7-17) mg/dL Creatinine 4.55 H (0.52-1.04) mg/dL Glucose 163 H (74-99) mg/dL Calcium 10.0 (8.4-10.2) mg/dL Adrenal panel 05/30/20 Range/Units 09:30 Sodium 137 (137-145) mmol/L Potassium 4.8 (3.5-5.1) mmol/L Chloride 101 (98-107) mmol/L Carbon Dioxide 24 (22-30) mmol/L BUN 63 H (7-17) mg/dL Creatinine 4.55 H (0.52-1.04) mg/dL Glucose 163 H (74-99) mg/dL Calcium 10.0 (8.4-10.2) mg/dL Assessment and Plan Assessment: End-stage renal disease Nonfully maturing left upper extremity AV fistula Plan: We'll plan to take the patient today for ligation of her branches followed by a repeat ultrasound and hopefully be able to use her fistula the next few weeks.
[2020-05-30] MEDS ORDERED: fentaNYL (PF) 50 MCG/ML 2 ML AMP ONE (10:35)
[2020-05-30] MEDS ORDERED: PROPOFOL 10 MG/ML 20 ML VIAL IV ONE (10:35)
[2020-05-30] MEDS ORDERED: KETAMINE 10 MG/ML 20 ML VIAL ONE (10:35)
[2020-05-30 10:37] LABS: Glucose,Whole Blood 168 mg/dL (75-99)
[2020-05-30] MEDS ORDERED: LIDOCAINE 1% INJ 10MG/ML (20 ML MDV) SQ ONE ×2 (10:58)
[2020-05-30] MEDS ORDERED: BUPIVACAINE (PF) 0.5% 30 ML VIAL SQ ONE ×2 (10:59)
--- NOTE | 2020-05-30 11:36 | P.OP ---
Date of Procedure: 05/30/20 Description of Procedure: Preoperative diagnosis: [End-stage renal disease, non-maturing left upper extremity AV fistula] Postoperative diagnosis: Same Procedure: [#1 left upper extremity AV fistula revision, ligation of branches] Surgeon: Jen Hilliard D.O. EBL: [2 mL] IV fluids: [See records] Urine output: None measured[] Drains: [None] Complications: [None immediately apparent] Condition: [Stable to recovery] Operative indication and findings: [Patient is a [age] female who previously underwent a left upper extremity radiocephalic fistula creation in March. She was seen at her follow-up and had an ultrasound revealing areas of multiple large branches causing the fistula shuffling mature. It was decided that she would benefit from a further procedure to ligate these branches. Risks and benefits were discussed and she seemingly understood and was willing to proceed as such.] Procedure in detail: [Patient was taken to the operative suite and placed in supine position. Left upper extremity was prepped and draped in usual sterile fashion. A preprocedure timeout was performed, all parties are in agreement. Utilizing the Branches Were Visualized. The Areas of the Branches Were Marked. The Skin Overlying Was Anesthetized and an Incision Was Made Carried down to the Level of Subcutaneous Tissues and the Vein Was Identified and Encircled with a 4-0 Silk Suture. This is done at the multiple sites. The area was then irrigated. There was good thrill remaining through the fistula. It appeared that the thrill went further through the forearm than previous. The deep dermal tissues were reapproximated with interrupted sutures of 3-0 Vicryl. The skin was reapproximated with running 4-0 Monocryl. Skin glue and a small dressing was placed. The patient was allowed awaken from anesthesia and transferred to recovery in stable condition having tolerated the procedure well.] Plan - Discharge Summary Discharge Rx Participant: No New Discharge Prescriptions: No Action amLODIPine [Norvasc] 10 mg PO HS Multivitamins, Thera [Multivitamin (formulary)] 1 tab PO DAILY Aspirin EC [Ecotrin Low Dose] 81 mg PO DAILY Furosemide [Lasix] 20 mg PO BID Pantoprazole [Protonix] 40 mg PO AC-BRKFST 30 Days #30 tablet.dr Sodium Bicarbonate Tab 650 mg PO BID 30 Days #60 tab Acetaminophen Tab [Tylenol] 650 mg PO Q6HR PRN tab PRN Reason: Mild Pain Or Fever > 100.5 cloNIDine HCL [Catapres] 0.1 mg PO DAILY DULoxetine HCL [Cymbalta] 30 mg PO QAM hydrALAZINE HCL [Apresoline] 25 mg PO BID Melatonin 5 mg PO HS HYDROcodone/APAP 5-325MG [Elbert 5-325] 1 tab PO Q4HR PRN 3 Days #18 tab PRN Reason: Pain Insulin Glargine [Lantus] 10 unit SQ HS Discharge Medication List Multivitamins, Thera [Multivitamin (formulary)] 1 tab PO DAILY 05/07/14 [History] amLODIPine [Norvasc] 10 mg PO HS 05/07/14 [History] Aspirin EC [Ecotrin Low Dose] 81 mg PO DAILY 09/19/15 [History] Furosemide [Lasix] 20 mg PO BID 09/01/19 [History] Pantoprazole [Protonix] 40 mg PO AC-BRKFST 30 Days #30 tablet. 09/05/19 [Rx] Sodium Bicarbonate Tab 650 mg PO BID 30 Days #60 tab 09/05/19 [Rx] Acetaminophen Tab [Tylenol] 650 mg PO Q6HR PRN tab 10/30/19 [Rx] DULoxetine HCL [Cymbalta] 30 mg PO QAM 03/15/20 [History] Melatonin 5 mg PO HS 03/15/20 [History] cloNIDine HCL [Catapres] 0.1 mg PO DAILY 03/15/20 [History] hydrALAZINE HCL [Apresoline] 25 mg PO BID 03/15/20 [History] HYDROcodone/APAP 5-325MG [Elbert 5-325] 1 tab PO Q4HR PRN 3 Days #18 tab 03/21/20 [Rx] Insulin Glargine [Lantus] 10 unit SQ HS 05/29/20 [History] Follow up Appointment(s)/Referral(s): Jen Hilliard DO [STAFF PHYSICIAN] - 10 Days Activity/Diet/Wound Care/Special Instructions: Resume regular activity. Resume home medications. [id number] medication for pain control Discharge Disposition: HOME SELF-CARE
[2020-05-30 11:51] VITALS: BP 133/62; PULSE 66; RESP 20
== END 2020-05-30 12:19 | disposition home or self-care (01) ==
LOC: OR 08:23
PROVIDERS: ATTEND Surgery
DX: I12.0 Hypertensive chronic kidney disease with stage 5 chronic kidney disease or end stage renal disease (principal); E11.22 Type 2 diabetes mellitus with diabetic chronic kidney disease; N18.6 End stage renal disease; Z99.2 Dependence on renal dialysis; E78.5 Hyperlipidemia, unspecified; I25.10 Atherosclerotic heart disease of native coronary artery without angina pectoris; K21.9 Gastro-esophageal reflux disease without esophagitis; M19.90 Unspecified osteoarthritis, unspecified site; G47.30 Sleep apnea, unspecified; Z86.73 Personal history of transient ischemic attack (TIA), and cerebral infarction without residual deficits; K44.9 Diaphragmatic hernia without obstruction or gangrene; Z98.890 Other specified postprocedural states; Z98.42 Cataract extraction status, left eye; Z98.41 Cataract extraction status, right eye; Z87.891 Personal history of nicotine dependence; Z97.2 Presence of dental prosthetic device (complete) (partial); Z80.9 Family history of malignant neoplasm, unspecified; Z79.82 Long term (current) use of aspirin; Z79.4 Long term (current) use of insulin; Z79.891 Long term (current) use of opiate analgesic; Z79.899 Other long term (current) drug therapy; Z88.0 Allergy status to penicillin; Z88.8 Allergy status to other drugs, medicaments and biological substances
CPT/HCPCS: 80048; 85025; 36832; J1100; J2405; J2001; J3010; J2704

== ENCOUNTER 2020-10-18 13:05 | Day surgery (SDC) | payer MEDICARE, OTHER ==
[2020-10-16 14:31] VITALS: BMI 29.3
[2020-10-18] MEDS ORDERED: SODIUM CHLORIDE 0.9% 1,000 ML IV ONE (13:29)
[2020-10-18 13:46] LABS: Glucose,Whole Blood 106 mg/dL (75-99)
[2020-10-18 13:47] VITALS: RESP 16; TEMP 97.2
[2020-10-18 14:47] LABS: Basophils % (A) 0 %; Eosinophils # (A) 0.1 k/uL (0-0.7); Eosinophils % (A) 2 %; HCT 32.7 % (34.0-46.0); HGB 11.2 gm/dL (11.4-16.0); Lymphocytes # (A) 1.4 k/uL (1.0-4.8); Lymphocytes % (A) 24 %; MCH 32.3 pg (25.0-35.0); MCHC 34.1 g/dL (31.0-37.0); MCV 94.7 fL (80.0-100.0); Mean Platelet Volume 8.6; Monocytes # (A) 0.3 k/uL (0-1.0); Monocytes % (A) 5 %; Neutrophils # (A) 3.7 k/uL (1.3-7.7); Neutrophils % (A) 65 %; Platelet Count 193 k/uL (150-450); RBC 3.46 m/uL (3.80-5.40); RDW 13.4 % (11.5-15.5); WBC 5.7 k/uL (3.8-10.6)
[2020-10-18] MEDS ORDERED: LIDOCAINE 1% INJ 10MG/ML (20 ML MDV) ONE (14:54)
[2020-10-18 15:05] LABS: Calcium 9.7 mg/dL (8.4-10.2); Potassium 5.4 mmol/L (3.5-5.1)
[2020-10-18] MEDS ORDERED: LIDOCAINE 1% INJ 10MG/ML (20 ML MDV) SQ ONE (15:07)
[2020-10-18] MEDS ORDERED: HYDROmorphone 0.5 MG/0.5 ML SYRINGE IVP ONE (15:30)
[2020-10-18] MEDS ORDERED: IOPAMIDOL-250 50ML BTL IV ONE (15:42)
[2020-10-18] MEDS ORDERED: ACETAMINOPHEN TAB 325 MG TAB ONE (16:47)
[2020-10-18 17:06] VITALS: BP 149/68; PULSE 78
--- NOTE | 2020-10-21 13:57 | IR ---
EXAMINATION TYPE: IR banquet captain venous DATE OF EXAM: 10/18/2020 COMPARISON: NONE HISTORY: Fluoroscopy time. Fluoroscopy was provided to the referring clinician.
--- NOTE | 2020-10-28 15:05 | P.OP ---
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 EBL: [ Less than 10 mL] IV fluids: [ See records] Urine output: [ Not measured] Drains: [ None] Complications: [ None immediately apparent] Condition: [ Stable to recovery] Operative indication and findings: [ Bridget is a 65-year-old female with a left upper extremity radiocephalic fistula that was created earlier this year. It has been functioning well but recently after the first few trials of access she's been having issues with difficult cannulation and spasm of the inflow. Ultrasound imaging revealed some elevated areas of elevated velocities therefore the patient was brought in for a fistulogram.] Procedure in detail: [ Patient was placed in the Traffic Counter. The left upper extremity was prepped and draped in usual sterile fashion. A preprocedure timeout was performed, all parties were in agreement. Ultrasound was utilized and the cephalic vein was identified in the mid arm. The area over top was anesthetized. Using a micropuncture needle the 5-Mongolian sheath was placed. A fissure gram was performed revealing an area of severe stenosis just distal to the radiocephalic anastomosis. The proximal portion of the arm appeared patent without any significant disease. Catheters and wires were used to cross the lesion. At first a 5 x 60 balloon was utilized followed by a 5 x 20 mm balloon with resolution of the area of stenosis. There was a good palpable thrill at the conclusion of the balloon. At that point catheters and wires removed. The sheath was removed and a [id number] suture of 3-0 nylon was placed. Hemostasis appeared adequate. The patient will be allowed to return to dialysis tomorrow with use of the fistula] Plan - Discharge Summary Discharge Rx Participant: No New Discharge Prescriptions: No Action RX: amLODIPine [Norvasc] 10 mg PO HS RX: Multivitamins, Thera [Multivitamin (formulary)] 1 tab PO DAILY RX: Aspirin EC [Ecotrin Low Dose] 81 mg PO DAILY PRN PRN Reason: Pain RX: Furosemide [Lasix] 20 mg PO DAILY RX: Pantoprazole [Protonix] 40 mg PO AC-BRKFST 30 Days #30 tablet. RX: Acetaminophen Tab [Tylenol] 650 mg PO Q6HR PRN tab PRN Reason: Mild Pain Or Fever > 100.5 cloNIDine HCL [Catapres] 0.1 mg PO DAILY DULoxetine HCL [Cymbalta] 30 mg PO QAM hydrALAZINE HCL [Apresoline] 25 mg PO BID RX: Melatonin 5 mg PO HS Insulin Glargine [Lantus] 24 unit SQ HS Pioglitazone [Actos] 30 mg PO DAILY Zolpidem [Ambien] 10 mg PO HS PRN PRN Reason: Insomnia Acetaminophen Tab [Tylenol] 325 mg PO Q6H PRN PRN Reason: Pain Lidocaine-Prilocaine Cream [Emla Cream 2.5%/2.5%] 1 applic TOPICAL TUTHSA Dialivite 1 tab PO DAILY Discharge Medication List RX: Multivitamins, Thera [Multivitamin (formulary)] 1 tab PO DAILY 05/07/14 [History] RX: amLODIPine [Norvasc] 10 mg PO HS 05/07/14 [History] RX: Aspirin EC [Ecotrin Low Dose] 81 mg PO DAILY PRN 09/19/15 [History] RX: Furosemide [Lasix] 20 mg PO DAILY 09/01/19 [History] RX: Pantoprazole [Protonix] 40 mg PO AC-BRKFST 30 Days #30 tablet. 09/05/19 [Rx] RX: Acetaminophen Tab [Tylenol] 650 mg PO Q6HR PRN tab 10/30/19 [Rx] DULoxetine HCL [Cymbalta] 30 mg PO QAM 03/15/20 [History] RX: Melatonin 5 mg PO HS 03/15/20 [History] cloNIDine HCL [Catapres] 0.1 mg PO DAILY 03/15/20 [History] hydrALAZINE HCL [Apresoline] 25 mg PO BID 03/15/20 [History] Insulin Glargine [Lantus] 24 unit SQ HS 05/29/20 [History] Acetaminophen Tab [Tylenol] 325 mg PO Q6H PRN 10/16/20 [History] Dialivite 1 tab PO DAILY 10/16/20 [History] Lidocaine-Prilocaine Cream [Emla Cream 2.5%/2.5%] 1 applic TOPICAL TUTHSA 10/16/20 [History] Pioglitazone [Actos] 30 mg PO DAILY 10/18/20 [History] Zolpidem [Ambien] 10 mg PO HS PRN 10/18/20 [History]
== END 2020-10-18 17:07 | disposition home or self-care (01) ==
LOC: CATHCVL 13:05
PROVIDERS: ATTEND Surgery
DX: I77.0 Arteriovenous fistula, acquired (principal); T82.858A Stenosis of other vascular prosthetic devices, implants and grafts, initial encounter
CPT/HCPCS: 36902; 80048; 85025; C1769 ×4; C1725 ×2; C1894; J2001; J1170; Q9966

== ENCOUNTER → 2021-09-26 | Day surgery (SDC) | payer MEDICARE, OTHER ==
[~2021-09-26] MED LIST changes: +ACETAMINOPHEN TAB 500 MG TAB PO PRN; +BUPIVACAIN-EPI 0.25%-1:200,000 30 ML VIAL SQ ONE; -CLINDAMYCIN 900 MG in DEXTROSE 5% IN WATER 50 ML IVPB PRN; -DEXAMETHASONE SOD PHOSPHATE 4 MG/ML 1 ML VIAL IV ONE; +HEPARIN SODIUM,PORCINE/PF 5,000 UNIT/0.5 ML SYRINGE SQ PRN; +HYDROcodone/APAP 5-325MG 1 EACH TAB ONE; +HYDROcodone/APAP 5-325MG 1 EACH TAB PO ONE; -HYDROmorphone 0.5 MG/0.5 ML SYRINGE IVP PRN; -MIDAZOLAM 2 MG/2 ML VIAL IV PRN; +MIDAZOLAM 2 MG/2 ML VIAL ONE; +MINERAL OIL 1 APPLIC/ML OIL TOPICAL ONE; +PROPOFOL 10 MG/ML 20 ML VIAL IV ONE; +SODIUM CHLORIDE 0.9% 1,000 ML IV ONE; +fentaNYL (PF) 50 MCG/ML 2 ML AMP IV PRN; +fentaNYL (PF) 50 MCG/ML 2 ML AMP ONE
[2021-09-26 07:18] LABS: Glucose,Whole Blood 95 mg/dL (70-110)
[2021-09-26 07:26] VITALS: TEMP 97.7
--- NOTE | 2021-09-26 07:40 | P.GSHP ---
History of Present Illness H&P Date: 09/26/21 Chief Complaint: Renal failure 66-year-old female seen 1 month ago in the office. Patient interested in dialysis catheter placement. She is currently on hemodialysis. She is interested in eventual transplant. No abdominal surgeries. No hernias. Past Medical History Past Medical History: Coronary Artery Disease (CAD), CVA/TIA, Diabetes Mellitus, Dialysis, GERD/Reflux, Hyperlipidemia, Hypertension, Osteoarthritis (OA), Renal Disease, Sleep Apnea/CPAP/BIPAP Additional Past Medical History / Comment(s): Hx varicose veins, stroke X3- last 1 yr ago - no residual effects, TIA's, no CPAP used, hiatal hernia, ERSD - hemodialysis , , . Rt arm bruised. History of Any Multi-Drug Resistant Organisms: None Reported Past Surgical History: Breast Surgery, Heart Catheterization, Orthopedic Surgery Additional Past Surgical History / Comment(s): Bilat Carotid Endarterectomy, lumpectomy Rt breast, CTR bilateral wrists, pilonidal cyst removal, varicose vein removal, bilateral cataracts removed, Fistula left wrist surgery 2019; Fistula revision 05/30/20. Past Anesthesia/Blood Transfusion Reactions: Previous Problems w/ Anesthesia, Motion Sickness Additional Past Anesthesia/Blood Transfusion Reaction / Comment(s): Had trouble waking up after surgery. Past Psychological History: No Psychological Hx Reported Smoking Status: Former smoker Past Alcohol Use History: Rare Additional Past Alcohol Use History / Comment(s): Quit smoking 2009 est, started smoking as a teen, 1 PPD. Past Drug Use History: None Reported - Past Family History Mother Family Medical History: Cancer Additional Family Medical History / Comment(s): breast cancer w/ mets Father Family Medical History: Cancer Additional Family Medical History / Comment(s): knee cancer Brother(s) Family Medical History: Cancer Additional Family Medical History / Comment(s): colon cancer, foot cancer Medications and Allergies Home Medications Medication Instructions Recorded Confirmed Type Multivitamins, Thera [Multivitamin 1 tab PO DAILY 05/07/14 09/25/21 History (formulary)] Aspirin EC [Ecotrin Low Dose] 81 mg PO DAILY PRN 09/19/15 09/25/21 History Acetaminophen Tab [Tylenol] 650 mg PO Q6HR PRN tab 10/30/19 09/25/21 Rx Insulin Glargine [Lantus] 24 unit SQ HS 05/29/20 09/25/21 History Acetaminophen Tab [Tylenol] 325 mg PO Q6H PRN 10/16/20 09/25/21 History Dialivite 1 tab PO DAILY 10/16/20 09/25/21 History Lidocaine-Prilocaine Cream [Emla 1 applic TOPICAL [facility] [place][NOTE 3] 10/16/20 09/25/21 History Cream 2.5%/2.5%] Cinacalcet [Sensipar] 30 mg PO TUTA 09/25/21 09/25/21 History Sevelamer Carbonate 800 mg PO DAILY 09/25/21 09/25/21 History Allergies Allergy/AdvReac Type Severity Reaction Status Date / Time captopril Allergy Cough Verified 09/26/21 06:53 cephalexin monohydrate Allergy Rash/Hives Verified 09/26/21 06:53 [From Keflex] Penicillins Allergy Rash/Hives Verified 09/26/21 06:53 Surgical - Exam Vital Signs Temp Pulse Resp BP Pulse Ox 97.7 F 68 20 187/89 99 09/26/21 07:24 09/26/21 07:24 09/26/21 07:24 09/26/21 07:24 09/26/21 07:24 Physical exam: General: Well-developed, well-nourished HEENT: Normocephalic, sclerae nonicteric Abdomen: Nontender, nondistended Extremities: No edema Neuro: Alert and oriented Assessment and Plan (1) Renal failure Narrative/Plan: Will proceed with peritoneal dialysis catheter placement at this time. Risks of bleeding, infection, scarring, leak, hernia, abscess, peritonitis, bladder and bowel injury, poor function reviewed. She understands and wishes to proceed. Current Visit: Yes Status: Acute Code(s): N19 - UNSPECIFIED KIDNEY FAILURE SNOMED Code(s): 43054950
--- NOTE | 2021-09-26 08:37 | P.OP ---
Date of Procedure: 09/26/21 Procedure(s) Performed: PREOPERATIVE DIAGNOSIS: Renal failure POSTOPERATIVE DIAGNOSIS: Same PROCEDURE: Peritoneal dialysis catheter insertion SURGEON: Russ EBL: Minimal ANESTHESIA: Sedation plus local COMPLICATIONS: None OPERATIVE PROCEDURE: The patient was placed in the operative table in the supine position. The abdomen was prepped and draped in usual sterile fashion. A small vertical incision was made in the left periumbilical location. Dissection down through the subcutaneous tissues took place using electrocautery. The anterior rectus was divided vertically using the scalpel. The rectus was bluntly. The posterior rectus was visualized. An 0 Vicryl pursestring was placed. A small opening in the posterior rectus fascia and peritoneum took place using a Metzenbaum scissors. There were no adhesions to the suture that was placed. The pigtail catheter was advanced into the pelvis over a stylette. No resistance was met. The inner cuff was secured to the fascia using the 0 Vicryl pursestring that was placed. The catheter was tunneled to an exit site in the left lateral lower quadrant. The catheter was connected to the 1 L bag of saline and approximated 800 mL of saline was easily introduced into the peritoneal cavity. The fluid was then allowed to evacuate. The majority of the fluid was returned. The anterior rectus fascia was then reapproximated using a running 0 Vicryl stitch. The subcutaneous tissues reprepped using 3-0 Vicryl sutures and the skin using 4-0 Monocryl sutures. The outpatient dialysis adapter was applied to the end of the catheter. Sterile dressings were then applied after skin glue was placed over the incision. DISPOSITION: Stable to recovery room
[2021-09-26 08:39] VITALS: RESP 16
[2021-09-26 09:24] VITALS: BP 167/78; PULSE 80
== END ==
LOC: OR 06:11
PROVIDERS: ATTEND Surgery
DX: I12.0 Hypertensive chronic kidney disease with stage 5 chronic kidney disease or end stage renal disease (principal); E11.22 Type 2 diabetes mellitus with diabetic chronic kidney disease; N18.6 End stage renal disease; Z99.2 Dependence on renal dialysis; I10 Essential (primary) hypertension; E78.5 Hyperlipidemia, unspecified; Z86.73 Personal history of transient ischemic attack (TIA), and cerebral infarction without residual deficits; K21.9 Gastro-esophageal reflux disease without esophagitis; M19.90 Unspecified osteoarthritis, unspecified site; G47.30 Sleep apnea, unspecified; I83.90 Asymptomatic varicose veins of unspecified lower extremity; Z98.42 Cataract extraction status, left eye; Z98.41 Cataract extraction status, right eye; Z98.890 Other specified postprocedural states; Z87.891 Personal history of nicotine dependence; Z80.3 Family history of malignant neoplasm of breast; Z80.8 Family history of malignant neoplasm of other organs or systems; Z80.0 Family history of malignant neoplasm of digestive organs; Z79.82 Long term (current) use of aspirin; Z79.4 Long term (current) use of insulin; Z79.899 Other long term (current) drug therapy; Z88.1 Allergy status to other antibiotic agents; Z88.0 Allergy status to penicillin; Z88.8 Allergy status to other drugs, medicaments and biological substances
CPT/HCPCS: 84132; 49421; C1752; J2250; J0690; J2405; J3010; J2704; J1644

== ENCOUNTER 2022-10-30 11:08 | Day surgery (SDC) | payer MEDICARE, OTHER ==
[2022-10-29 11:57] VITALS: BMI 24.1
[~2022-10-30 11:08] MED LIST changes: -BUPIVACAIN-EPI 0.25%-1:200,000 30 ML VIAL SQ ONE; -HYDROcodone/APAP 5-325MG 1 EACH TAB ONE; -HYDROcodone/APAP 5-325MG 1 EACH TAB PO ONE; -LACTATED RINGERS 1,000 ML IV SCH; -LIDOCAINE 1% (10MG/ML) FOR IV START INTRADERMA PRN; -MIDAZOLAM 2 MG/2 ML VIAL ONE; -MINERAL OIL 1 APPLIC/ML OIL TOPICAL ONE; -ONDANSETRON 4 MG/2 ML VIAL IVP ONE; -PROPOFOL 10 MG/ML 20 ML VIAL IV ONE; -SODIUM CHLORIDE 0.9% 1,000 ML IV ONE; -fentaNYL (PF) 50 MCG/ML 2 ML AMP IV PRN; -fentaNYL (PF) 50 MCG/ML 2 ML AMP ONE
[2022-10-30] MEDS ORDERED: LACTATED RINGERS 1,000 ML IV SCH (11:20)
[2022-10-30] MEDS ORDERED: ONDANSETRON 4 MG/2 ML VIAL IVP ONE (11:20)
[2022-10-30] MEDS ORDERED: MIDAZOLAM 2 MG/2 ML VIAL IV PRN (11:20)
[2022-10-30] MEDS ORDERED: HYDROmorphone 0.5 MG/0.5 ML SYRINGE IVP PRN (11:20)
[2022-10-30] MEDS ORDERED: DEXAMETHASONE SOD PHOSPHATE 4 MG/ML 1 ML VIAL IV ONE (11:20)
--- NOTE | 2022-10-30 11:46 | P.GSHP ---
History of Present Illness H&P Date: 10/30/22 Chief Complaint: Renal failure A 67-year-old female here for peritoneal dialysis catheter removal. Patient had catheter placed last September. She stopped using it this September because of some change in living conditions. It was functioning well. She does describe some discomfort there. She is now using a left arm fistula for hemodialysis. Past Medical History Past Medical History: Coronary Artery Disease (CAD), CVA/TIA, Diabetes Mellitus, Dialysis, GERD/Reflux, Hyperlipidemia, Hypertension, Osteoarthritis (OA), Renal Disease, Sleep Apnea/CPAP/BIPAP Additional Past Medical History / Comment(s): Hx varicose veins, stroke X3-left side weaker uses a walker and w/c,has mild confusion at times, TIA's, no CPAP used, hiatal hernia, ERSD - hemodialysis , , .urinates freq small amounts,hx bleeding ulcer was in ecf Spring 2022-through August 2022- in and out. History of Any Multi-Drug Resistant Organisms: None Reported Past Surgical History: Breast Surgery, Heart Catheterization, Orthopedic Surgery Additional Past Surgical History / Comment(s): Bilat Carotid Endarterectomy, lumpectomy Rt breast, CTR bilateral wrists, pilonidal cyst removal, varicose vein removal, bilateral cataracts removed, Fistula left wrist surgery 2019; Fistula revision 05/30/20. Past Anesthesia/Blood Transfusion Reactions: Previous Problems w/ Anesthesia, Motion Sickness Additional Past Anesthesia/Blood Transfusion Reaction / Comment(s): Had trouble waking up after surgery. no problems with prior blood transfusion Smoking Status: Former smoker - Past Family History Mother Family Medical History: Cancer Additional Family Medical History / Comment(s): breast cancer w/ mets Father Family Medical History: Cancer Additional Family Medical History / Comment(s): esophageal cancer Brother(s) Family Medical History: Cancer Additional Family Medical History / Comment(s): colon cancer, esophageal cancer Medications and Allergies Home Medications Medication Instructions Recorded Confirmed Type Aspirin EC [Ecotrin Low Dose] 81 mg PO DAILY PRN 09/19/15 10/29/22 History Cinacalcet [Sensipar] 30 mg PO TUTHSA 09/25/21 10/29/22 History Acetaminophen Tab [Tylenol] 325 - 650 mg PO Q6HR PRN 10/29/22 10/29/22 History Albuterol Inhaler [Ventolin Hfa 1 - 2 puff INHALATION Q6H PRN 10/29/22 10/29/22 History Inhaler] Bumetanide [Bumex] 5 mg PO QAM 10/29/22 10/29/22 History Calcitriol Unk Dose @ Dialysis 1 dose PO TUTHSA 10/29/22 10/29/22 History Calcium Acetate [Phoslo] 667 mg PO W/SUPPER 10/29/22 10/29/22 History DULoxetine HCL 20 mg PO QAM 10/29/22 10/29/22 History Ferrous Sulfate [Iron] 325 mg PO BID 10/29/22 10/29/22 History INSULIN LISPRO (HumaLOG) [humaLOG] 0 units SQ ACHS PRN 10/29/22 10/29/22 History Losartan Potassium [Cozaar] 100 mg PO QAM 10/29/22 10/29/22 History Magnesium Oxide [Mag-Ox] 250 mg PO DAILY 10/29/22 10/29/22 History NIFEdipine [Procardia XL] 90 mg PO W/SUPPER 10/29/22 10/29/22 History Sodium Chloride Tab 1 gm PO BID 10/29/22 10/29/22 History Sucralfate [Carafate] 1 gm PO ACHS 10/29/22 10/29/22 History metOLazone 2.5 mg PO BID 10/29/22 10/29/22 History Allergies Allergy/AdvReac Type Severity Reaction Status Date / Time captopril Allergy Cough Verified 10/29/22 11:41 cephalexin monohydrate Allergy Rash/Hives Verified 10/29/22 11:41 [From Keflex] Penicillins Allergy Rash/Hives Verified 10/29/22 11:41 Surgical - Exam Physical exam: General: Well-developed, well-nourished HEENT: Normocephalic, sclerae nonicteric Abdomen: Nontender, nondistended, left lower quadrant catheter in place Extremities: No edema Neuro: Alert and oriented Assessment and Plan (1) Renal failure Narrative/Plan: 67-year-old female with renal failure. We'll proceed with dialysis catheter removal at this time. Risks of bleeding, infection, scarring, bowel injury, hernia discussed. They understand and wish to proceed Status: Acute Code(s): N19 - UNSPECIFIED KIDNEY FAILURE SNOMED Code(s): 33843517
[2022-10-30 12:05] VITALS: RESP 16; TEMP 97.1
[2022-10-30 12:15] LABS: Glucose,Whole Blood 115 mg/dL (70-110)
[2022-10-30] MEDS ORDERED: MIDAZOLAM 2 MG/2 ML VIAL ONE (12:20)
[2022-10-30] MEDS ORDERED: PROPOFOL 10 MG/ML 20 ML VIAL IV ONE (12:20)
[2022-10-30] MEDS ORDERED: LIDOCAINE 2% INJ 20 MG/ML (2 ML VIAL) ONE (12:20)
[2022-10-30] MEDS ORDERED: fentaNYL (PF) 50 MCG/ML 2 ML AMP ONE (12:20)
[2022-10-30] MEDS ORDERED: BUPIVACAINE (PF) 0.25% 10 ML VIAL SQ ONE ×2 (12:37)
[2022-10-30] MEDS ORDERED: HYDROcodone/APAP 5-325MG 1 EACH TAB PO PRN (12:55)
[2022-10-30] MEDS ORDERED: NALOXONE 0.4 MG/ML 1 ML VIAL IV PRN (12:55)
[2022-10-30] MEDS ORDERED: ACETAMINOPHEN TAB 325 MG TAB PO PRN (12:55)
--- NOTE | 2022-10-30 12:56 | P.OP ---
Date of Procedure: 10/30/22 Procedure(s) Performed: PREOPERATIVE DIAGNOSIS: Renal failure POSTOPERATIVE DIAGNOSIS: Same PROCEDURE: PD cath removal SURGEON: Russ EBL: 2 mL ANESTHESIA: Sedation and local COMPLICATIONS: None OPERATIVE PROCEDURE: Patient was placed in the supine position. The abdomen was prepped and draped in usual sterile fashion. The previous paramedian incision was re-incised after localizing the skin. The subcutaneous tissues were divided using electrocautery. Blunt dissection around the cuff that was present at the fascia and peritoneum took place. The cuff was fully mobilized. The catheter was removed from the perineal cavity. The outer cuff was dissected from the saphenous fascia using electrocautery. The catheter was cut on the other side of that cuff and the catheter was removed. The fascial defect was closed using a single [id number] 0 Vicryl stitch. The subcutaneous tissues were closed using 3-0 Vicryl sutures and the skin using 4-0 Monocryl sutures. Skin glue and sterile dressings were applied. DISPOSITION: Stable to recovery room
[2022-10-30 13:25] VITALS: BP 158/76; PULSE 68
== END 2022-10-30 13:50 | disposition home or self-care (01) ==
LOC: OR 11:08
PROVIDERS: ATTEND Surgery
DX: N19 Unspecified kidney failure (principal); I25.10 Atherosclerotic heart disease of native coronary artery without angina pectoris; E11.9 Type 2 diabetes mellitus without complications; I10 Essential (primary) hypertension; E78.5 Hyperlipidemia, unspecified; M19.90 Unspecified osteoarthritis, unspecified site; G47.33 Obstructive sleep apnea (adult) (pediatric); K21.9 Gastro-esophageal reflux disease without esophagitis; Z86.73 Personal history of transient ischemic attack (TIA), and cerebral infarction without residual deficits; Z79.82 Long term (current) use of aspirin; Z88.0 Allergy status to penicillin; Z88.1 Allergy status to other antibiotic agents
CPT/HCPCS: 49421; J2250; J1100; J0690; J2405; J3010; J2704; J1644; J2001; J0665

== ENCOUNTER 2022-11-07 09:48 | Observation (INO) | payer MEDICARE, OTHER ==
--- NOTE | 2022-11-07 10:43 | ED ---
General Adult HPI - General Chief complaint: Syncope Stated complaint: Syncope Time Seen by Provider: 11/07/22 10:00 Source: patient, EMS, RN notes reviewed, old records reviewed Mode of arrival: EMS Limitations: no limitations - History of Present Illness Initial comments: This is a 67-year-old female presents emergency Department stating she was havin g hemodialysis today when she started becoming lightheaded. Patient's not sure if he passed out or not. Patient denies any chest pain difficult breathing shortness of breath. Patient denies any headache patient denies numbness weakness. Patient denies abdominal pain. Patient denies nausea vomiting diarrhea. Patient states she just feels weak all over and that occurred when she was having dialysis. Patient does not believe he finished dialysis. Patient currently lying in bed still feels weak but is not lightheaded. - Related Data Home Medications Medication Instructions Recorded Confirmed Aspirin EC [Ecotrin Low Dose] 81 mg PO DAILY PRN 09/19/15 10/29/22 Cinacalcet [Sensipar] 30 mg PO TUTHSA 09/25/21 10/30/22 Acetaminophen Tab [Tylenol] 325 - 650 mg PO Q6HR PRN 10/29/22 10/30/22 Albuterol Inhaler [Ventolin Hfa 1 - 2 puff INHALATION Q6H PRN 10/29/22 10/30/22 Inhaler] Bumetanide [Bumex] 5 mg PO QAM 10/29/22 10/30/22 Calcitriol Unk Dose @ Dialysis 1 dose PO TUTHSA 10/29/22 10/30/22 Calcium Acetate [Phoslo] 667 mg PO W/SUPPER 10/29/22 10/30/22 DULoxetine HCL 20 mg PO QAM 10/29/22 10/30/22 Ferrous Sulfate [Iron] 325 mg PO BID 10/29/22 10/30/22 INSULIN LISPRO (HumaLOG) [humaLOG] 0 units SQ ACHS PRN 10/29/22 10/30/22 Losartan Potassium [Cozaar] 100 mg PO QAM 10/29/22 10/30/22 Magnesium Oxide [Mag-Ox] 250 mg PO DAILY 10/29/22 10/30/22 NIFEdipine [Procardia XL] 90 mg PO W/SUPPER 10/29/22 10/30/22 Sodium Chloride Tab 1 gm PO BID 10/29/22 10/30/22 Sucralfate [Carafate] 1 gm PO ACHS 10/29/22 10/30/22 metOLazone 2.5 mg PO BID 10/29/22 10/30/22 Allergies Allergy/AdvReac Type Severity Reaction Status Date / Time captopril Allergy Cough Verified 11/07/22 10:01 cephalexin monohydrate Allergy Rash/Hives Verified 11/07/22 10:01 [From Keflex] Penicillins Allergy Rash/Hives Verified 11/07/22 10:01 Review of Systems ROS Statement: Those systems with pertinent positive or pertinent negative responses have been documented in the HPI. ROS Other: All systems not noted in ROS Statement are negative. Past Medical History Past Medical History: Coronary Artery Disease (CAD), CVA/TIA, Diabetes Mellitus, Dialysis, GERD/Reflux, Hyperlipidemia, Hypertension, Osteoarthritis (OA), Renal Disease, Sleep Apnea/CPAP/BIPAP Additional Past Medical History / Comment(s): Hx varicose veins, stroke X3-left side weaker uses a walker and w/c,has mild confusion at times, TIA's, no CPAP used, hiatal hernia, ERSD - hemodialysis , , SA.urinates freq small amounts,hx bleeding ulcer was in ecf Spring 2022-through August 2022- in and out. History of Any Multi-Drug Resistant Organisms: None Reported Past Surgical History: Breast Surgery, Heart Catheterization, Orthopedic Surgery Additional Past Surgical History / Comment(s): Bilat Carotid Endarterectomy, lumpectomy Rt breast, CTR bilateral wrists, pilonidal cyst removal, varicose vein removal, bilateral cataracts removed, Fistula left wrist surgery 2019; Fistula revision 05/30/20. Past Anesthesia/Blood Transfusion Reactions: Previous Problems w/ Anesthesia, Motion Sickness Additional Past Anesthesia/Blood Transfusion Reaction / Comment(s): Had trouble waking up after surgery. no problems with prior blood transfusion Past Psychological History: No Psychological Hx Reported Smoking Status: Former smoker - Past Family History Mother Family Medical History: Cancer Additional Family Medical History / Comment(s): breast cancer w/ mets Father Family Medical History: Cancer Additional Family Medical History / Comment(s): esophageal cancer Brother(s) Family Medical History: Cancer Additional Family Medical History / Comment(s): colon cancer, esophageal cancer General Exam - General Exam Comments Initial Comments: GENERAL: Patient is well-developed and well-nourished. Patient is nontoxic and well- hydrated and is in mild distress. ENT: Neck is soft and supple. No significant lymphadenopathy is noted. Oropharynx is clear. Moist mucous membranes. Neck has full range of motion without eliciting any pain. EYES: The sclera were anicteric and conjunctiva were pink and moist. Extraocular movements were intact and pupils were equal round and reactive to light. Eyelids were unremarkable. PULMONARY: Unlabored respirations. Good breath sounds bilaterally. No audible rales rhonchi or wheezing was noted. CARDIOVASCULAR: There is a regular rate and rhythm without any murmurs gallops or rubs. ABDOMEN: Soft and nontender with normal bowel sounds. SKIN: Skin is clear with no lesions or rashes and otherwise unremarkable. NEUROLOGIC: Patient is alert and oriented x3. Cranial nerves II through XII are grossly intact. Motor and sensory are also intact. Normal speech, volume and content. Symmetrical smile. MUSCULOSKELETAL: Normal extremities with adequate strength and full range of motion. LYMPHATICS: No significant lymphadenopathy is noted PSYCHIATRIC: Normal psychiatric evaluation. Limitations: no limitations Course Vital Signs 11/07/22 11/07/22 11/07/22 09:55 13:04 13:51 Temperature 98.1 F 98 F Pulse Rate 66 66 72 Respiratory 19 18 18 Rate Blood Pressure 162/77 183/94 171/84 O2 Sat by Pulse 98 97 98 Oximetry Medical Decision Making - Medical Decision Making EKG was interpreted by myself. EKG shows a sinus rhythm at 66 bpm MS interval 180 QRS is under 12 QT interval is 4:30 QTC is 452. Patient's EKG shows no ST segment elevation or depression Was pt. sent in by a medical professional or institution (, PA, RACE RELATIONS PROFESSOR, urgent care, hospital, or prison...) When possible be specific @ -The dialysis center sent the patient to the emergency department Did you speak to anyone other than the patient for history (EMS, parent, family, police, friend...)? What history was obtained from this source @ -No Did you review nursing and triage notes (agree or disagree)? Why? @ -I reviewed and agree with nursing and triage notes Were old charts reviewed (outside hosp., previous admission, EMS record, old EKG, old radiological studies, urgent care reports/EKG's, prison records)? Report findings @ -I reviewed prior labs and prior charts on this patient Differential Diagnosis (chest pain, altered mental status, abdominal pain women, abdominal pain men, vaginal bleeding, weakness, fever, dyspnea, syncope, headache, dizziness, GI bleed, back pain, seizure, CVA, palpatations, mental health, musculoskeletal)? @ -Differential Syncope: Valvular disease, hypertrophic cardiomyopathy, pulmonary embolism, tamponade, tachycardia, bradycardia, IL, hypovolemia, hemorrhage, dissection, anemia, intracranial hemorrhage, seizure, hypoglycemia, carbon monoxide poisoning, this is not meant to be an all-inclusive list. EKG interpreted by me (3pts min.). @ -As above X-rays interpreted by me (1pt min.). @ -Chest x-ray showed no acute abnormality CT interpreted by me (1pt min.). @ -None done U/S interpreted by me (1pt. min.). @ -None done What testing was considered but not performed or refused? (CT, X-rays, U/S, labs)? Why? @ -None What meds were considered but not given or refused? Why? @ -None Did you discuss the management of the patient with other professionals (professionals i.e. , PA, RACE RELATIONS PROFESSOR, lab, RT, psych nurse, social services specialist, coremaker, teacher, strike warfare/missile systems officer, director of casework department)? Give summary @ -[facility] Was smoking cessation discussed for >3mins.? @ -No Was critical care preformed (if so, how long)? @ -No Were there social determinants of health that impacted care today? How? (Homelessness, low income, unemployed, alcoholism, drug addiction, transportation, low edu. Level, literacy, decrease access to med. care, snf, rehab)? @ -No Was there de-escalation of care discussed even if they declined (Discuss DNR or withdrawal of care, Hospice)? DNR status @ -No What co-morbidities impacted this encounter? (DM, HTN, Smoking, COPD, CAD, Cancer, CVA, ARF, Chemo, Hep., AIDS, mental health diagnosis, sleep apnea, morbid obesity)? @ -None Was patient admitted / discharged? Hospital course, mention meds given and route, prescriptions, significant lab abnormalities, going to OR and other pertinent info. @ -Patient was sent in from dialysis she did not finish her dialysis because of her near syncopal episode. Patient states she does not even remember anything from dialysis earlier she's not sure if she passed out or not. I spoke with [facility] hospitalist agreed to admit the patient I consult nephrology Undiagnosed new problem with uncertain prognosis? @ -No Drug Therapy requiring intensive monitoring for toxicity (Heparin, Nitro, Insulin, Cardizem)? @ -No Were any procedures done? @ -No Diagnosis/symptom? @ -Near syncope Acute, or Chronic, or Acute on Chronic? @ -Acute Uncomplicated (without systemic symptoms) or Complicated (systemic symptoms)? @ -Complicated Side effects of treatment? @ -No Exacerbation, Progression, or Severe Exacerbation? @ -No Poses a threat to life or bodily function? How? (Chest pain, USA, IL, pneumonia, PE, COPD, DKA, ARF, appy, cholecystitis, CVA, Diverticulitis, Homicidal, Suicidal, threat to staff... and all critical care pts) @ -No Diagnosis/symptom? @ -Renal failure Acute, or Chronic, or Acute on Chronic? @ -Chronic Uncomplicated (without systemic symptoms) or Complicated (systemic symptoms)? @ -Complicated Side effects of treatment? @ -none Exacerbation, Progression, or Severe Exacerbation] @ -no Poses a threat to life or bodily function? @ -no - Lab Data Result diagrams: 11/07/22 11:32 11/07/22 11:50 Lab Results 11/07/22 11/07/22 11/07/22 Range/Units 11:32 11:32 11:32 WBC 5.8 (3.8-10.6) k/uL RBC 4.69 (3.80-5.40) m/uL Hgb 13.1 (11.4-16.0) gm/dL Hct 40.8 (34.0-46.0) % MCV 87.0 (80.0-100.0) fL MCH 27.9 (25.0-35.0) pg MCHC 32.1 (31.0-37.0) g/dL RDW 13.9 (11.5-15.5) % Plt Count 142 L (150-450) k/uL MPV 9.6 Neutrophils % 74 % Lymphocytes % 18 % Monocytes % 4 % Eosinophils % 3 % Basophils % 0 % Neutrophils # 4.3 (1.3-7.7) k/uL Lymphocytes # 1.0 (1.0-4.8) k/uL Monocytes # 0.2 (0-1.0) k/uL Eosinophils # 0.2 (0-0.7) k/uL Basophils # 0.0 (0-0.2) k/uL Hypochromasia Slight PT 9.5 (9.0-12.0) sec INR 0.9 (<1.2) APTT 24.6 (22.0-30.0) sec Sodium (137-145) mmol/L Potassium (3.5-5.1) mmol/L Chloride (98-107) mmol/L Carbon Dioxide (22-30) mmol/L Anion Gap mmol/L BUN (7-17) mg/dL Creatinine (0.52-1.04) mg/dL Est GFR (CKD-EPI)AfAm (>60 ml/min/1.73 sqM) Est GFR (CKD-EPI)NonAf (>60 ml/min/1.73 sqM) Glucose (74-99) mg/dL Plasma Lactic Acid Kong (0.7-2.0) mmol/L Calcium (8.4-10.2) mg/dL Magnesium (1.6-2.3) mg/dL Total Bilirubin (0.2-1.3) mg/dL AST (14-36) U/L ALT (4-34) U/L Alkaline Phosphatase (38-126) U/L Troponin I <0.012 (0.000-0.034) ng/mL Total Protein (6.3-8.2) g/dL Albumin (3.5-5.0) g/dL 11/07/22 11/07/22 Range/Units 11:50 11:50 WBC (3.8-10.6) k/uL RBC (3.80-5.40) m/uL Hgb (11.4-16.0) gm/dL Hct (34.0-46.0) % MCV (80.0-100.0) fL MCH (25.0-35.0) pg MCHC (31.0-37.0) g/dL RDW (11.5-15.5) % Plt Count (150-450) k/uL MPV Neutrophils % % Lymphocytes % % Monocytes % % Eosinophils % % Basophils % % Neutrophils # (1.3-7.7) k/uL Lymphocytes # (1.0-4.8) k/uL Monocytes # (0-1.0) k/uL Eosinophils # (0-0.7) k/uL Basophils # (0-0.2) k/uL Hypochromasia PT (9.0-12.0) sec INR (<1.2) APTT (22.0-30.0) sec Sodium 139 (137-145) mmol/L Potassium 4.8 (3.5-5.1) mmol/L Chloride 105 (98-107) mmol/L Carbon Dioxide 25 (22-30) mmol/L Anion Gap 9 mmol/L BUN 54 H (7-17) mg/dL Creatinine 4.75 H (0.52-1.04) mg/dL Est GFR (CKD-EPI)AfAm 10 (>60 ml/min/1.73 sqM) Est GFR (CKD-EPI)NonAf 9 (>60 ml/min/1.73 sqM) Glucose 128 H (74-99) mg/dL Plasma Lactic Acid Kong 0.9 (0.7-2.0) mmol/L Calcium 9.0 (8.4-10.2) mg/dL Magnesium 2.0 (1.6-2.3) mg/dL Total Bilirubin 0.5 (0.2-1.3) mg/dL AST 27 (14-36) U/L ALT 15 (4-34) U/L Alkaline Phosphatase 125 (38-126) U/L Troponin I (0.000-0.034) ng/mL Total Protein 7.0 (6.3-8.2) g/dL Albumin 4.1 (3.5-5.0) g/dL Disposition Clinical Impression: Near syncope, Chronic renal failure Disposition: ADMITTED IP TO THIS HOSP Referrals: Pa Arthur DO [Primary Care Provider] - 1-2 days Time of Disposition: 14:21
[2022-11-07 11:37] LABS: Basophils % (A) 0 %; Eosinophils # (A) 0.2 k/uL (0-0.7); Eosinophils % (A) 3 %; HCT 40.8 % (34.0-46.0); HGB 13.1 gm/dL (11.4-16.0); Hypochromasia Slight; Lymphocytes % (A) 18 %; MCH 27.9 pg (25.0-35.0); MCHC 32.1 g/dL (31.0-37.0); Mean Platelet Volume 9.6; Monocytes # (A) 0.2 k/uL (0-1.0); Monocytes % (A) 4 %; Neutrophils # (A) 4.3 k/uL (1.3-7.7); Neutrophils % (A) 74 %; Platelet Count 142 k/uL (150-450); RBC 4.69 m/uL (3.80-5.40); RDW 13.9 % (11.5-15.5); WBC 5.8 k/uL (3.8-10.6)
--- NOTE | 2022-11-07 11:37 | XR ---
EXAMINATION TYPE: XR chest 2V DATE OF EXAM: 11/07/2022 11:19 AM COMPARISON: Chest radiographs from 10/24/2019 TECHNIQUE: XR chest 2V Frontal and lateral views of the chest. CLINICAL INDICATION:Female, 67 years old with history of Weakness; FINDINGS: Lungs/Pleura: There is no evidence of pleural effusion, focal consolidation, or pneumothorax. Pulmonary vascularity: Unremarkable. Heart/mediastinum: Cardiomediastinal silhouette is unremarkable. Musculoskeletal: No acute osseous pathology. Mild degenerative changes of the thoracic spine. IMPRESSION: No acute cardiopulmonary disease/process.
[2022-11-07 11:46] LABS: INR 0.9 (<1.2); Partial Thromboplastin Time 24.6 sec (22.0-30.0); Prothrombin Time 9.5 sec (9.0-12.0)
[2022-11-07 12:14] LABS: ALT 15 U/L (4-34); AST 27 U/L (14-36); African American GFR (CKD) 10 (>60 ml/min/1.73 sqM); Albumin 4.1 g/dL (3.5-5.0); Alkaline Phosphatase 125 U/L (38-126); Anion Gap 9 mmol/L; Blood Urea Nitrogen 54 mg/dL (7-17); Carbon Dioxide 25 mmol/L (22-30); Chloride 105 mmol/L (98-107); Glucose 128 mg/dL (74-99); Non-African American GFR(CKD) 9 (>60 ml/min/1.73 sqM); Potassium 4.8 mmol/L (3.5-5.1); Sodium 139 mmol/L (137-145); Total Bilirubin 0.5 mg/dL (0.2-1.3)
[2022-11-07] MEDS ORDERED: hydrALAZINE HCL 20 MG/ML 1 ML VIAL IVP STA (13:05)
[2022-11-07] MEDS ORDERED: hydrALAZINE HCL 20 MG/ML 1 ML VIAL IVP PRN (16:42)
[2022-11-07] MEDS: LOSARTAN 50 MG TAB PO SCH (16:52)
[2022-11-07] MEDS ORDERED: ACETAMINOPHEN TAB 500 MG TAB PO PRN (17:01)
[2022-11-07] MEDS ORDERED: ALBUTEROL NEBULIZED 2.5 MG/3 ML INHALATION PRN (17:01)
[2022-11-07] MEDS ORDERED: CALCIUM CARBONATE 500 MG CHEWABLE PO PRN (17:01)
[2022-11-07] MEDS ORDERED: NIFEdipine XL 90 MG TAB.ER.24 PO SCH (17:30)
[2022-11-07] MEDS ORDERED: CALCIUM ACETATE 667 MG TAB PO SCH (17:30)
[2022-11-07] MEDS: FERROUS SULFATE 325 MG TAB PO SCH (21:11)
[2022-11-07] MEDS: metOLazone 2.5 MG TAB PO SCH (21:11)
[2022-11-07 21:31] LABS: Glucose,Whole Blood 130 mg/dL (70-110)
[2022-11-08] MEDS ORDERED: DEXTROSE 50% SYRINGE 50 ML IVP PRN ×2 (07:13)
[2022-11-08 07:24] LABS: Glucose,Whole Blood 104 mg/dL (70-110)
[2022-11-08] MEDS: INSULIN ASPART (NovoLOG) 100 UNIT/ML VIAL SQ SCH ×2 (08:26→12:43)
[2022-11-08] MEDS: FERROUS SULFATE 325 MG TAB PO SCH (08:26)
[2022-11-08] MEDS: LOSARTAN 50 MG TAB PO SCH (08:26)
[2022-11-08] MEDS: metOLazone 2.5 MG TAB PO SCH (08:27)
[2022-11-08] MEDS ORDERED: MAGNESIUM OXIDE 400 MG TAB PO SCH (09:00)
[2022-11-08] MEDS ORDERED: BUMETANIDE 1 MG TAB PO SCH (09:00)
[2022-11-08] MEDS ORDERED: ASPIRIN 81 MG PO SCH (09:00)
[2022-11-08] MEDS ORDERED: DULoxetine HCL 20 MG CAPSULE.DR PO SCH (09:00)
[2022-11-08] MEDS ORDERED: HEPARIN SODIUM,PORCINE 5,000 UNIT/ML 1 ML VIAL SQ SCH (09:00)
[2022-11-08 09:10] LABS: Basophils # (A) 0.05 X 10*3/uL (0.00-0.10); Basophils % (A) 0.8 %; Eosinophils # (A) 0.15 X 10*3/uL (0.04-0.35); Eosinophils % (A) 2.4 %; HCT 38.1 % (37.2-46.3); HGB 11.9 d/dL (12.0-15.0); Lymphocytes # (A) 1.77 X 10*3/uL (0.90-5.00); Lymphocytes % (A) 28.1 %; MCH 27.5 pg (27.0-32.0); MCHC 31.2 d/dL (32.0-37.0); Mean Platelet Volume 10.3 FL (9.5-12.2); Monocytes # (A) 0.38 X 10*3/uL (0.20-1.00); NRBC Per 100 WBC 0 X 10*3/uL (0.00-0.01); Neutrophils # (A) 3.94 X 10*3/uL (1.80-7.70); Neutrophils % (A) 62.5 %; Platelet Count 146 X 10*3/uL (140-440); RBC 4.33 X 10*6/uL (4.10-5.20); RDW 13.3 % (11.5-14.5)
[2022-11-08 09:42] LABS: BUN/Creat Ratio 9.67 Ratio (12.00-20.00); Blood Urea Nitrogen 50.3 mg/dL (9.0-27.0); Calcium 9.8 mg/dL (8.7-10.3); Carbon Dioxide 24.2 mmol/L (21.6-31.8); Chloride 104 mmol/L (96-109); Glucose 92 mg/dL (70-110); Potassium 5.1 mmol/L (3.5-5.5); Sodium 140 mmol/L (135-145)
[2022-11-08 10:13] LABS: Hepatitis B Surface Antigen Nonreactive
[2022-11-08 11:48] LABS: Glucose,Whole Blood 157 mg/dL (70-110)
--- NOTE | 2022-11-08 11:50 | P.NPCON ---
History of Present Illness - Reason for Consult end stage renal disease - History of Present Illness Reason for consultation: End-stage renal disease History of present illness: Patient is a 67-year-old female seen in renal consultation for end-stage renal disease. She is meeting hemodialysis on Wednesday schedule. Patient was receiving hemodialysis yesterday but became confused during the treatment and was decreased to the hospital. She completed the dialysis treatment at the hospital last night. She is currently awake and alert. She denies any chest pain or shortness of breath. No vomiting or diarrhea. Hemodynamically stable. Patient denies any fever or chills. No cough. She has long-standing history of diabetes. Denies history of coronary artery disease. Chest x-ray negative. No edema. She does make urine. No active complaints at this time. Vital signs are stable. General: No acute distress. HEENT: No JVD. LUNGS: No audible rhonchi or wheezes. HEART: Rate and Rhythm are regular. ABDOMEN: Nontender. EXTREMITITES: No edema. Past Medical History Past Medical History: Coronary Artery Disease (CAD), CVA/TIA, Diabetes Mellitus, Dialysis, GERD/Reflux, Hyperlipidemia, Hypertension, Osteoarthritis (OA), Renal Disease, Sleep Apnea/CPAP/BIPAP Additional Past Medical History / Comment(s): Hx varicose veins, stroke X3-left side weaker uses a walker and w/c,has mild confusion at times, TIA's, no CPAP used, hiatal hernia, ERSD - hemodialysis , , .urinates freq small amounts,hx bleeding ulcer was in ecf Spring 2022-through August 2022- in and out. History of Any Multi-Drug Resistant Organisms: None Reported Past Surgical History: Breast Surgery, Heart Catheterization, Orthopedic Surgery Additional Past Surgical History / Comment(s): Bilat Carotid Endarterectomy, lumpectomy Rt breast, CTR bilateral wrists, pilonidal cyst removal, varicose vein removal, bilateral cataracts removed, Fistula left wrist surgery 2019; Fistula revision 05/30/20. Past Anesthesia/Blood Transfusion Reactions: Previous Problems w/ Anesthesia, Motion Sickness Additional Past Anesthesia/Blood Transfusion Reaction / Comment(s): Had trouble waking up after surgery. no problems with prior blood transfusion Past Psychological History: No Psychological Hx Reported Smoking Status: Former smoker - Past Family History Mother Family Medical History: Cancer Additional Family Medical History / Comment(s): breast cancer w/ mets Father Family Medical History: Cancer Additional Family Medical History / Comment(s): esophageal cancer Brother(s) Family Medical History: Cancer Additional Family Medical History / Comment(s): colon cancer, esophageal cancer Medications and Allergies Home Medications Medication Instructions Recorded Confirmed Type Aspirin EC [Ecotrin Low Dose] 81 mg PO DAILY 09/19/15 11/07/22 History Cinacalcet [Sensipar] 30 mg PO TUTHSA 09/25/21 11/07/22 History Acetaminophen Tab [Tylenol] 325 - 650 mg PO Q6HR PRN 10/29/22 11/07/22 History Albuterol Inhaler [Ventolin Hfa 1 - 2 puff INHALATION Q6H PRN 10/29/22 11/07/22 History Inhaler] Bumetanide [Bumex] 5 mg PO DAILY 10/29/22 11/07/22 History Calcium Acetate [Phoslo] 667 mg PO W/SUPPER 10/29/22 11/07/22 History DULoxetine HCL 20 mg PO DAILY 10/29/22 11/07/22 History Ferrous Sulfate [Iron] 325 mg PO BID 10/29/22 11/07/22 History INSULIN LISPRO (HumaLOG) [humaLOG] See Protocol SQ ACHS PRN 10/29/22 11/07/22 History Losartan Potassium [Cozaar] 100 mg PO DAILY 10/29/22 11/07/22 History Magnesium Oxide [Mag-Ox] 250 mg PO DAILY 10/29/22 11/07/22 History NIFEdipine [Procardia XL] 90 mg PO W/SUPPER 10/29/22 11/07/22 History Sodium Chloride Tab 1 gm PO BID 10/29/22 11/07/22 History Sucralfate [Carafate] 1 gm PO ACHS 10/29/22 11/07/22 History metOLazone 2.5 mg PO BID 10/29/22 11/07/22 History Calcium Carbonate [Tums] 500 mg PO TID PRN 11/07/22 11/07/22 History Ondansetron Odt [Zofran Odt] 4 mg PO Q8HR PRN 11/07/22 11/07/22 History calcitrioL [Rocaltrol] 0.25 mcg PO TUTHSA 11/07/22 11/07/22 History Allergies Allergy/AdvReac Type Severity Reaction Status Date / Time captopril Allergy Cough Verified 11/07/22 14:49 cephalexin monohydrate Allergy Rash/Hives Verified 11/07/22 14:49 [From Keflex] Penicillins Allergy Rash/Hives Verified 11/07/22 14:49 Physical Exam Vitals: Vital Signs Temp Pulse Pulse Pulse Pulse Pulse Resp 11/08/22 07:24 98.4 F 63 17 11/08/22 00:53 98.2 F 63 15 11/07/22 21:14 11/07/22 20:38 97.9 F 61 16 11/07/22 20:10 80 101 H 61 16 11/07/22 18:34 72 11/07/22 18:10 80 101 H 75 11/07/22 16:50 70 11/07/22 16:20 98.1 F 59 L 17 11/07/22 16:00 85 18 11/07/22 15:30 98.1 F 84 19 11/07/22 13:51 98 F 72 18 11/07/22 13:04 66 18 BP BP BP BP Pulse Ox 11/08/22 07:24 154/77 96 11/08/22 00:53 138/58 11/07/22 21:14 165/83 11/07/22 20:38 167/87 11/07/22 20:10 11/07/22 18:34 168/70 11/07/22 18:10 150/72 157/77 168/72 11/07/22 16:50 185/82 11/07/22 16:20 200/80 100 11/07/22 16:00 173/84 98 11/07/22 15:30 180/86 96 11/07/22 13:51 171/84 98 11/07/22 13:04 183/94 97 Intake and Output 11/07/22 11/08/22 11/08/22 22:59 06:59 14:59 Intake Total 500 500 Output Total 700 Balance -200 500 Intake: Oral 500 Hemodialysis 500 Output: Hemodialysis 700 Other: # Voids 1 1 2 Weight 72.121 kg Results - Lab Results Most recent lab results Calcium 9.8 mg/dL (8.7-10.3) 11/08/22 05:40 Magnesium 2.0 mg/dL (1.6-2.3) 11/07/22 11:50 11/08/22 05:40 11/08/22 05:40 Assessment and Plan Plan: Assessment: 1. End-stage renal disease maintained on hemodialysis on Wednesday schedule. 2. Presyncopal episode during dialysis yesterday. Blood pressure 154/77 this morning. Blood glucose stable. Orthostatics negative. 3. Chronic kidney disease mineral bone disease maintained on calcitriol, PhosLo and Sensipar. 4. Hypertension with chronic kidney disease. 5. Diabetes mellitus. Plan: Hemodialysis Wednesday. Maintain Bumex. Stop metolazone. Home blood pressure medicines resumed. Thank you for the consultation. I will continue to follow the patient with you during her hospital stay.
[2022-11-08 11:56] VITALS: BP 143/71; PULSE 64; RESP 18; TEMP 98.3
[2022-11-08 17:26] VITALS: BMI 24.9
[2022-11-08] MEDS ORDERED: MORPHINE SULFATE ER 15 MG TABLET PO SCH (21:00)
[2022-11-10] MEDS ORDERED: CINACALCET 30 MG TAB PO SCH (09:00)
== END 2022-11-08 17:24 | disposition home or self-care (01) ==
LOC: EC 09:48 → 5NMEDONC 14:24
PROVIDERS: ADMIT Hospitalist; ATTEND Hospitalist
DX: R55 Syncope and collapse (principal); R41.0 Disorientation, unspecified; I12.0 Hypertensive chronic kidney disease with stage 5 chronic kidney disease or end stage renal disease; E11.22 Type 2 diabetes mellitus with diabetic chronic kidney disease; N18.6 End stage renal disease; I25.10 Atherosclerotic heart disease of native coronary artery without angina pectoris; K21.9 Gastro-esophageal reflux disease without esophagitis; E78.5 Hyperlipidemia, unspecified; I10 Essential (primary) hypertension; M19.90 Unspecified osteoarthritis, unspecified site; G47.30 Sleep apnea, unspecified; Z99.2 Dependence on renal dialysis; I83.90 Asymptomatic varicose veins of unspecified lower extremity; I69.354 Hemiplegia and hemiparesis following cerebral infarction affecting left non-dominant side; Z79.899 Other long term (current) drug therapy; Z88.0 Allergy status to penicillin; Z88.8 Allergy status to other drugs, medicaments and biological substances; Z88.1 Allergy status to other antibiotic agents; Z87.891 Personal history of nicotine dependence; Z79.82 Long term (current) use of aspirin; Z80.0 Family history of malignant neoplasm of digestive organs; Z80.3 Family history of malignant neoplasm of breast
CPT/HCPCS: 90935; 96372; 96374; 99285; 36415; 93005; 80053; 80048; 83605; 83735; 84484; 85025 ×2; 85610; 85730; 86706; 87340; 71046; G0378 ×2; J0360; J1644

== ENCOUNTER → 2023-05-26 | Outpatient (CLI) | payer MEDICARE, OTHER ==
[2023-05-26 17:28] LABS: ALT 25 U/L (8-44); AST 21 U/L (13-35); Chol/HDL Ratio 4.06 Ratio
== END | disposition home or self-care (01) ==
LOC: LABWHC1 09:15
PROVIDERS: ATTEND Internal Medicine
DX: E78.2 Mixed hyperlipidemia (principal)
CPT/HCPCS: 36415; 80061; 84450; 84460

== ENCOUNTER 2023-07-06 12:58 | Observation (INO) | payer MEDICARE, OTHER ==
[2023-07-06 13:34] LABS: Glucose,Whole Blood 95 mg/dL (70-110)
--- NOTE | 2023-07-06 14:14 | ED ---
Fall HPI - General Source: patient, family, RN notes reviewed Mode of arrival: wheelchair Limitations: no limitations <Garland Tan - Last Filed: 07/06/23 14:12> - General Source: patient, family Limitations: no limitations <Rene Serrano - Last Filed: 07/06/23 17:18> - General Chief Complaint: Weakness Stated Complaint: Weakness Time Seen by Provider: 07/06/23 13:15 - History of Present Illness Initial Comments: Quick note -68-year-old female presents emergency room with family for evaluation of frequent falls, confusion. Patient had another fall today noticed bruising on the face, scalp laceration. Patient has not been acting appropriately over the last 1 to 2 weeks. She had no complaints otherwise but does states she feels very weak. (Garland Tan) Patient is a 68-year-old female presenting to the emergency department with general weakness and frequent falls. Symptoms have been occurring for the last couple weeks and patient is following daily. Patient did strike her head today. No loss of consciousness. Daughter denies noticing a laceration. Daughter does have concerns of patient's ability to care for herself. No isolated area of weakness. Patient has been more drowsy recently (Rene Serrano) - Related Data Home Medications Medication Instructions Recorded Confirmed Aspirin EC [Ecotrin Low Dose] 81 mg PO DAILY 09/19/15 11/18/22 Albuterol Inhaler [Ventolin Hfa 1 - 2 puff INHALATION Q6H PRN 10/29/22 11/18/22 Inhaler] Bumetanide [BUMEX] 5 mg PO DAILY 10/29/22 11/18/22 Calcium Acetate [PhosLo] 667 mg PO W/SUPPER 10/29/22 11/18/22 DULoxetine HCL 20 mg PO DAILY 10/29/22 11/18/22 Ferrous Sulfate [Iron] 325 mg PO BID 10/29/22 11/18/22 INSULIN LISPRO (HumaLOG) [humaLOG] See Protocol SQ ACHS PRN 10/29/22 11/18/22 Magnesium Oxide [Mag-Ox] 250 mg PO DAILY 10/29/22 11/18/22 NIFEdipine [Procardia XL] 90 mg PO W/SUPPER 10/29/22 11/18/22 Sodium Chloride Tab 1 gm PO BID 10/29/22 11/18/22 Sucralfate [Carafate] 1 gm PO BID 10/29/22 11/18/22 Losartan [Cozaar] 100 mg PO DAILY 11/18/22 11/18/22 metOLazone [Zaroxolyn] 2.5 mg PO BID 11/18/22 11/18/22 Allergies Allergy/AdvReac Type Severity Reaction Status Date / Time captopril Allergy Cough Verified 07/06/23 13:36 cephalexin monohydrate Allergy Rash/Hives Verified 07/06/23 13:36 [From Keflex] Penicillins Allergy Rash/Hives Verified 07/06/23 13:36 Review of Systems ROS Other: All systems not noted in ROS Statement are negative. <Garland Tan - Last Filed: 07/06/23 14:12> ROS Other: All systems not noted in ROS Statement are negative. Constitutional: Denies: fever Eyes: Denies: eye pain ENT: Denies: ear pain Respiratory: Denies: cough, dyspnea Cardiovascular: Denies: chest pain Endocrine: Reports: fatigue Gastrointestinal: Denies: abdominal pain Genitourinary: Denies: dysuria <Rene Serrano - Last Filed: 07/06/23 17:18> ROS Statement: Those systems with pertinent positive or pertinent negative responses have been documented in the HPI. Past Medical History Past Medical History: Coronary Artery Disease (CAD), CVA/TIA, Diabetes Mellitus, Dialysis, Hyperlipidemia, Hypertension, Osteoarthritis (OA), Renal Disease, Slee p Apnea/CPAP/BIPAP Additional Past Medical History / Comment(s): varicose veins (removed)., stroke X3-left side weaker uses a walker and w/c,- states she usually needs assistance with ambulation., TIA's, no CPAP used, hiatal hernia, ESRD - hemodialysis , , . with fistula left forearm., recent removal of peritoneal dialysis catheter., urinates freq small amounts, hx bleeding ulcer., History of Any Multi-Drug Resistant Organisms: None Reported Past Surgical History: Breast Surgery, Heart Catheterization, Orthopedic Surgery Additional Past Surgical History / Comment(s): Bilat Carotid Endarterectomy, lumpectomy Rt breast, CTR bilateral wrists, pilonidal cyst removal, varicose vein removal, bilateral cataracts removed, Fistula left wrist surgery 2019; Fistula revision 3/25/21., peritoneal dialysis catheter and removal Past Anesthesia/Blood Transfusion Reactions: Previous Problems w/ Anesthesia, Motion Sickness Additional Past Anesthesia/Blood Transfusion Reaction / Comment(s): Had trouble waking up after surgery. no problems with prior blood transfusion Past Psychological History: No Psychological Hx Reported Smoking Status: Former smoker Past Alcohol Use History: None Reported Past Drug Use History: None Reported - Past Family History Mother Family Medical History: Cancer Additional Family Medical History / Comment(s): breast cancer w/ mets Father Family Medical History: Cancer Additional Family Medical History / Comment(s): esophageal cancer Brother(s) Family Medical History: Cancer Additional Family Medical History / Comment(s): colon cancer, esophageal cancer <Garland Tan - Last Filed: 07/06/23 14:12> General Exam Limitations: no limitations <Garland Tan - Last Filed: 07/06/23 14:12> Limitations: no limitations General appearance: alert, in no apparent distress Head exam: Present: other (Posterior soft tissue swelling) Eye exam: Present: normal appearance, PERRL, EOMI Neck exam: Present: normal inspection. Absent: tenderness Respiratory exam: Present: normal lung sounds bilaterally Cardiovascular Exam: Present: regular rate, normal rhythm GI/Abdominal exam: Present: soft. Absent: tenderness Extremities exam: Present: normal inspection. Absent: pedal edema, calf tenderness Neurological exam: Present: alert, oriented X3, CN II-XII intact. Absent: motor sensory deficit Psychiatric exam: Present: normal affect, normal mood Skin exam: Present: normal color <Rene Serrano - Last Filed: 07/06/23 17:18> - General Exam Comments Initial Comments: Visual Physical Exam Vital signs reviewed General: Well-appearing, nontoxic, no acute distress. Head: Normocephalic, atraumatic Eyes: PERRLA, EOMI ENT: Airway patent Chest: Nonlabored breathing Skin: No visual rash, normal skin tone Neuro: Alert and oriented 3 Musculoskeletal: No gross abnormalities (Garland Tan) Course Vital Signs 07/06/23 13:28 Temperature 98.2 F Pulse Rate 56 L Respiratory 18 Rate Blood Pressure 162/71 O2 Sat by Pulse 97 Oximetry Medical Decision Making <Garland Tan - Last Filed: 07/06/23 14:12> - Lab Data Result diagrams: 07/06/23 14:36 07/06/23 14:36 <Rene Serrano - Last Filed: 07/06/23 17:18> - Medical Decision Making I completed the quick note portion of this chart signed Garland Tan PA-C (Garland Tan) Was pt. sent in by a medical professional or institution (, [facility], [facility], urgent care, hospital, or fdc...) When possible be specific @ -No Did you speak to anyone other than the patient for history (EMS, parent, family, police, friend...)? What history was obtained from this source @ -Family is present and provides majority of history including frequent falls Did you review nursing and triage notes (agree or disagree)? Why? @ -I reviewed and agree with nursing and triage notes Were old charts reviewed (outside hosp., previous admission, EMS record, old EKG, old radiological studies, urgent care reports/EKG's, fdc records)? Report findings @ -No old charts were reviewed Differential Diagnosis (chest pain, altered mental status, abdominal pain women, abdominal pain men, vaginal bleeding, weakness, fever, dyspnea, syncope, headache, dizziness, GI bleed, back pain, seizure, CVA, palpatations, mental health, musculoskeletal)? @ -Differential Weakness: Hypoglycemia, shock, sepsis, hyponatremia, anemia, infection, TX, ETOH, adverse medicine reaction, overdose, stroke, this is not meant to be an all-inclusive list. EKG interpreted by me (3pts min.). @ -As above X-rays interpreted by me (1pt min.). @ -Chest x-ray shows no acute process. CT interpreted by me (1pt min.). @ -CT scan of the brain and cervical spine does not reveal acute abnormality intracranial or cervical spine fracture U/S interpreted by me (1pt. min.). @ -None done What testing was considered but not performed or refused? (CT, X-rays, U/S, labs)? Why? @ -None What meds were considered but not given or refused? Why? @ -None Did you discuss the management of the patient with other professionals (karen del castillo i.e. , [facility], [facility], lab, RT, psych nurse, social professionals, cell biologist, teacher, police officer crime prevention, family service caseworker)? Give summary @ -Case was discussed with practitioner Addis who will admit covering Dr. Ra tovar Was smoking cessation discussed for >3mins.? @ -No Was critical care preformed (if so, how long)? @ -No Were there social determinants of health that impacted care today? How? (Homelessness, low income, unemployed, alcoholism, drug addiction, transportation, low edu. Level, literacy, decrease access to med. care, alf, rehab)? @ -No Was there de-escalation of care discussed even if they declined (Discuss DNR or withdrawal of care, Hospice)? DNR status @ -No What co-morbidities impacted this encounter? (DM, HTN, Smoking, COPD, CAD, Cancer, CVA, ARF, Chemo, Hep., AIDS, mental health diagnosis, sleep apnea, morbid obesity)? @ -None Was patient admitted / discharged? Hospital course, mention meds given and route, prescriptions, significant lab abnormalities, going to OR and other pe rtinent info. @ -Patient reevaluated and unchanged. Patient and family have concern with patient's general weakness and ability to care for self. They feel patient will likely need placement. Patient will be admitted. Admission orders written. Undiagnosed new problem with uncertain prognosis? @ -No Drug Therapy requiring intensive monitoring for toxicity (Heparin, Nitro, Insulin, Cardizem)? @ -No Were any procedures done? @ -No Diagnosis/symptom? @ -Weakness, end-stage renal failure on hemodialysis s Acute, or Chronic, or Acute on Chronic? @ -Acute, chronic Uncomplicated (without systemic symptoms) or Complicated (systemic symptoms)? @ -Default Side effects of treatment? @ -No Exacerbation, Progression, or Severe Exacerbation? @ -No Poses a threat to life or bodily function? How? (Chest pain, USA, TX, pneumonia, PE, COPD, DKA, ARF, appy, cholecystitis, CVA, Diverticulitis, Homicidal, Suicidal, threat to staff... and all critical care pts) @ -No (Rene Serrano) - Lab Data Lab Results 07/06/23 07/06/23 07/06/23 Range/Units 13:31 14:36 14:36 WBC 5.5 (3.8-10.6) k/uL RBC 3.47 L (3.80-5.40) m/uL Hgb 10.1 L (11.4-16.0) gm/dL Hct 30.5 L (34.0-46.0) % MCV 87.9 (80.0-100.0) fL MCH 29.0 (25.0-35.0) pg MCHC 33.0 (31.0-37.0) g/dL RDW 15.1 (11.5-15.5) % Plt Count 148 L (150-450) k/uL MPV 8.6 Neutrophils % 82 % Lymphocytes % 7 % Monocytes % 7 % Eosinophils % 1 % Basophils % 0 % Neutrophils # 4.6 (1.3-7.7) k/uL Lymphocytes # 0.4 L (1.0-4.8) k/uL Monocytes # 0.4 (0-1.0) k/uL Eosinophils # 0.1 (0-0.7) k/uL Basophils # 0.0 (0-0.2) k/uL Sodium 137 (137-145) mmol/L Potassium 4.0 (3.5-5.1) mmol/L Chloride 96 L (98-107) mmol/L Carbon Dioxide 31 H (22-30) mmol/L Anion Gap 10 mmol/L BUN 38 H (7-17) mg/dL Creatinine 3.37 H (0.52-1.04) mg/dL Est GFR (CKD-EPI)AfAm 15 (>60 ml/min/1.73 sqM) Est GFR (CKD-EPI)NonAf 13 (>60 ml/min/1.73 sqM) Glucose 109 H (74-99) mg/dL POC Glucose (mg/dL) 95 (70-110) mg/dL POC Glu Pantry Cook ID Jim Rios Plasma Lactic Acid Kong (0.7-2.0) mmol/L Calcium 9.2 (8.4-10.2) mg/dL Magnesium 1.8 (1.6-2.3) mg/dL Total Bilirubin 0.8 (0.2-1.3) mg/dL AST 29 (14-36) U/L ALT 39 H (4-34) U/L Alkaline Phosphatase 129 H (38-126) U/L Troponin I (0.000-0.034) ng/mL Total Protein 7.0 (6.3-8.2) g/dL Albumin 4.0 (3.5-5.0) g/dL 07/06/23 07/06/23 Range/Units 14:36 14:36 WBC (3.8-10.6) k/uL RBC (3.80-5.40) m/uL Hgb (11.4-16.0) gm/dL Hct (34.0-46.0) % MCV (80.0-100.0) fL MCH (25.0-35.0) pg MCHC (31.0-37.0) g/dL RDW (11.5-15.5) % Plt Count (150-450) k/uL MPV Neutrophils % % Lymphocytes % % Monocytes % % Eosinophils % % Basophils % % Neutrophils # (1.3-7.7) k/uL Lymphocytes # (1.0-4.8) k/uL Monocytes # (0-1.0) k/uL Eosinophils # (0-0.7) k/uL Basophils # (0-0.2) k/uL Sodium (137-145) mmol/L Potassium (3.5-5.1) mmol/L Chloride (98-107) mmol/L Carbon Dioxide (22-30) mmol/L Anion Gap mmol/L BUN (7-17) mg/dL Creatinine (0.52-1.04) mg/dL Est GFR (CKD-EPI)AfAm (>60 ml/min/1.73 sqM) Est GFR (CKD-EPI)NonAf (>60 ml/min/1.73 sqM) Glucose (74-99) mg/dL POC Glucose (mg/dL) (70-110) mg/dL POC Glu Pantry Cook ID Plasma Lactic Acid Kong 1.2 (0.7-2.0) mmol/L Calcium (8.4-10.2) mg/dL Magnesium (1.6-2.3) mg/dL Total Bilirubin (0.2-1.3) mg/dL AST (14-36) U/L ALT (4-34) U/L Alkaline Phosphatase (38-126) U/L Troponin I <0.012 (0.000-0.034) ng/mL Total Protein (6.3-8.2) g/dL Albumin (3.5-5.0) g/dL Disposition <Garland Tan - Last Filed: 07/06/23 14:12> Is patient prescribed a controlled substance at d/c from ED?: No Time of Disposition: 17:18 <Rene Serarno - Last Filed: 07/06/23 17:18> Clinical Impression: Weakness Disposition: ADMITTED IP TO THIS HOSP Referrals: Pa Arthur DO [Primary Care Provider] - 1-2 days
[2023-07-06 14:53] LABS: Basophils % (A) 0 %; Eosinophils # (A) 0.1 k/uL (0-0.7); Eosinophils % (A) 1 %; HCT 30.5 % (34.0-46.0); HGB 10.1 gm/dL (11.4-16.0); Lymphocytes # (A) 0.4 k/uL (1.0-4.8); Lymphocytes % (A) 7 %; MCV 87.9 fL (80.0-100.0); Mean Platelet Volume 8.6; Monocytes # (A) 0.4 k/uL (0-1.0); Monocytes % (A) 7 %; Neutrophils # (A) 4.6 k/uL (1.3-7.7); Neutrophils % (A) 82 %; Platelet Count 148 k/uL (150-450); RBC 3.47 m/uL (3.80-5.40); RDW 15.1 % (11.5-15.5); WBC 5.5 k/uL (3.8-10.6)
--- NOTE | 2023-07-06 15:03 | CT ---
EXAMINATION TYPE: CT brain cspine wo con CT DLP: 1567.8 mGycm, Automated exposure control for dose reduction was used. DATE OF EXAM: 07/06/2023 2:59 PM COMPARISON: 10/13/2019. CLINICAL INDICATION:Female, 68 years old with history of pain; fall TECHNIQUE: Brain: Multiple axial CT images of the brain were obtained without IV contrast. Cspine: Axial CT images from the skull base to the inferior aspect of T2 we obtained without intraven ous contrast. Coronal and sagittal reformatted images were also reviewed. FINDINGS: Brain: Extra-axial spaces: No abnormal extra-axial fluid collections. Ventricular system: Dilatation in proportion to cerebral atrophy. Cerebral parenchyma: Cerebral atrophy. No acute intraparenchymal hemorrhage or mass effect. The verduzco -white junction is well differentiated. Scattered hypoattenuating areas are seen within the white mat ter. Cerebellum: Unremarkable. Mass effect: No evidence of midline shift. Intracranial vasculature: Atherosclerotic calcifications of the intracranial vessels. Soft tissues: Posterior scalp edema. Calvarium/osseous structures: No depressed skull fracture. Paranasal sinuses and mastoid air cells: Clear. Visualized orbits: Orbital contents are intact. Cervical spine: Fracture: None. Osseous structures: Multilevel degenerative disc disease changes with endplate spurring and disc oste ophyte complex's. Vertebral alignment: Within normal limits. Spinal canal/Neural Foramina: No evidence of significant spinal canal narrowing. No evidence for sign ificant neural foraminal stenosis. Neck soft tissues: Prevertebral soft tissues are within normal limits. Other: The airway is patent. The lung apices are clear. IMPRESSION: 1. No acute intracranial process. 2. Nonspecific white matter changes, likely secondary to chronic small vessel ischemic disease. 3. Posterior scalp edema without evidence of fracture. 4. No evidence of cervical spine fracture. 5. Mild multilevel degenerative disc disease.
[2023-07-06 15:08] LABS: ALT 39 U/L (4-34); AST 29 U/L (14-36); African American GFR (CKD) 15 (>60 ml/min/1.73 sqM); Alkaline Phosphatase 129 U/L (38-126); Anion Gap 10 mmol/L; Blood Urea Nitrogen 38 mg/dL (7-17); Calcium 9.2 mg/dL (8.4-10.2); Carbon Dioxide 31 mmol/L (22-30); Chloride 96 mmol/L (98-107); Glucose 109 mg/dL (74-99); Magnesium 1.8 mg/dL (1.6-2.3); Non-African American GFR(CKD) 13 (>60 ml/min/1.73 sqM); Sodium 137 mmol/L (137-145); Total Bilirubin 0.8 mg/dL (0.2-1.3)
--- NOTE | 2023-07-06 16:38 | XR ---
EXAMINATION TYPE: XR chest 2V DATE OF EXAM: 07/06/2023 4:29 PM CLINICAL INDICATION:Female, 68 years old with history of weakness; COMPARISON: Chest radiographs from 11/07/2022 TECHNIQUE: XR chest 2V Frontal and lateral views of the chest. FINDINGS: Lungs/Pleura: There is no evidence of pleural effusion, focal consolidation, or pneumothorax. Pulmonary vascularity: Unremarkable. Heart/mediastinum: Cardiomediastinal silhouette is unremarkable. Musculoskeletal: No acute osseous pathology. IMPRESSION: No acute cardiopulmonary disease/process.
[2023-07-06] MEDS ORDERED: ACETAMINOPHEN TAB 325 MG TAB PO PRN (17:18)
[2023-07-06] MEDS ORDERED: NALOXONE 0.4 MG/ML 1 ML VIAL IV PRN (17:18)
[2023-07-06] MEDS ORDERED: ALBUTEROL HFA INHALER INHALATION PRN (17:44)
[2023-07-06] MEDS: NON FORMULARY DRUG (Vit B Complx C/Folic Acid/Zinc [Renaplex Tablet] 1 EACH Tablet) PO SCH (18:07)
[2023-07-06] MEDS: SODIUM CHLORIDE 0.9% 1,000 ML IV SCH (18:11)
[2023-07-06] MEDS: SUCRALFATE 1 GM TAB PO SCH (21:34)
[2023-07-06] MEDS: ATORVASTATIN 20 MG TAB PO SCH (21:34)
[2023-07-06] MEDS: carvediloL 12.5 MG TAB PO SCH (21:34)
[2023-07-06] MEDS: FERROUS SULFATE 325 MG TAB PO SCH (21:34)
[2023-07-06] MEDS: NIFEdipine XL 90 MG TAB.ER.24 PO SCH (22:06)
[2023-07-06] MEDS: metOLazone 2.5 MG TAB PO SCH (22:06)
[2023-07-07 05:10] LABS: Appearance,Urine Clear (Clear); Bilirubin,Urine Negative (Negative); Blood,Urine Negative (Negative); Color,Urine Colorless; Glucose,Urine (UA) Negative (Negative); Ketones,Urine Negative (Negative); Leukocyte Esterase,Urine Negative (Negative); Mucus,Urine Rare /hpf; Nitrite,Urine Negative (Negative); PH, Urine 8.5 (5.0-8.0); Protein,Urine 2+ (Negative); RBC,Urine 1 /hpf (0-5); Specific Gravity,Urine 1.008 (1.001-1.035); Urobilinogen,Urine <2.0 mg/dL (<2.0); WBC,Urine <1 /hpf (0-5)
[2023-07-07 11:38] LABS: BUN/Creat Ratio 10.35 Ratio (12.00-20.00); Blood Urea Nitrogen 47.6 mg/dL (9.0-27.0); Calcium 9.1 mg/dL (8.7-10.3); Chloride 95 mmol/L (96-109); Glucose 104 mg/dL (70-110); Potassium 4.7 mmol/L (3.5-5.5); Sodium 137 mmol/L (135-145)
--- NOTE | 2023-07-07 12:12 | P.NPCON ---
History of Present Illness - Reason for Consult end stage renal disease - History of Present Illness patient is a 68-year-old female with end-stage renal disease, maintained on hemodialysis on a Wednesday schedule. Patient is admitted to the hospital with history of fall.no complaints of lightheadedness or dizziness. The fall occurred at patient's daughter's home. Patient had had her h emodialysis earlier that morning with no significant ultrafiltration. Blood pressure was not low when patient presented to the hospital. no complaints of palpitations or chest pains. There is concern that patient is not able to take care of herself at home. heart rate noted to be on the lower side at 49-55/m Review of Systems as per HPI Past Medical History Past Medical History: Coronary Artery Disease (CAD), CVA/TIA, Diabetes Mellitus, Dialysis, Hyperlipidemia, Hypertension, Osteoarthritis (OA), Renal Disease, Sleep Apnea/CPAP/BIPAP Additional Past Medical History / Comment(s): varicose veins (removed)., stroke X3-left side weaker uses a walker and w/c,- states she usually needs assistance with ambulation., TIA's, no CPAP used, hiatal hernia, ESRD - hemodialysis , , . with fistula left forearm., recent removal of peritoneal dialysis catheter., urinates freq small amounts, hx bleeding ulcer., History of Any Multi-Drug Resistant Organisms: None Reported Past Surgical History: Breast Surgery, Heart Catheterization, Orthopedic Surgery Additional Past Surgical History / Comment(s): Bilat Carotid Endarterectomy, lumpectomy Rt breast, CTR bilateral wrists, pilonidal cyst removal, varicose vein removal, bilateral cataracts removed, Fistula left wrist surgery 2019; Fistula revision 05/30/20., peritoneal dialysis catheter and removal Past Anesthesia/Blood Transfusion Reactions: Previous Problems w/ Anesthesia, Motion Sickness Additional Past Anesthesia/Blood Transfusion Reaction / Comment(s): Had trouble waking up after surgery. no problems with prior blood transfusion Past Psychological History: No Psychological Hx Reported Smoking Status: Former smoker Past Alcohol Use History: None Reported Additional Past Alcohol Use History / Comment(s): Quit smoking 2009 est, started smoking as a teen, 1 PPD. Past Drug Use History: None Reported - Past Family History Mother Family Medical History: Cancer Additional Family Medical History / Comment(s): breast cancer w/ mets Father Family Medical History: Cancer Additional Family Medical History / Comment(s): esophageal cancer Brother(s) Family Medical History: Cancer Additional Family Medical History / Comment(s): colon cancer, esophageal cancer Medications and Allergies Home Medications Medication Instructions Recorded Confirmed Type Aspirin EC [Ecotrin Low Dose] 81 mg PO DAILY 09/19/15 07/06/23 History Albuterol Inhaler [Ventolin Hfa 1 - 2 puff INHALATION RT-Q6H PRN 10/29/22 07/06/23 History Inhaler] Bumetanide [BUMEX] 5 mg PO DAILY 10/29/22 07/06/23 History Calcium Acetate [PhosLo] 667 mg PO W/SUPPER 10/29/22 07/06/23 History Ferrous Sulfate [Iron] 325 mg PO BID 10/29/22 07/06/23 History INSULIN LISPRO (HumaLOG) [humaLOG] See Protocol SQ ACHS PRN 10/29/22 07/06/23 History NIFEdipine [Procardia XL] 90 mg PO HS 10/29/22 07/06/23 History Sucralfate [Carafate] 1 gm PO BID 10/29/22 07/06/23 History metOLazone [Zaroxolyn] 2.5 mg PO BID 11/18/22 07/06/23 History Atorvastatin [Lipitor] 20 mg PO HS 07/06/23 07/06/23 History Citalopram Hydrobromide [CeleXA] 20 mg PO DAILY 07/06/23 07/06/23 History Losartan Potassium 100 mg PO DAILY 07/06/23 07/06/23 History Vit B Complx C/Folic Acid/Zinc 1 tab PO TUTHSA 07/06/23 07/06/23 History [Renaplex Tablet] carvediloL [Coreg] 12.5 mg PO BID 07/06/23 07/06/23 History Allergies Allergy/AdvReac Type Severity Reaction Status Date / Time captopril Allergy Cough Verified 07/06/23 17:31 cephalexin monohydrate Allergy Rash/Hives Verified 07/06/23 17:31 [From Keflex] Penicillins Allergy Rash/Hives Verified 07/06/23 17:31 Physical Exam Vitals: Vital Signs Temp Pulse Pulse Resp BP BP Pulse Ox 07/07/23 09:20 95 07/07/23 08:00 98.1 F 49 L 18 124/60 91 L 07/07/23 06:10 53 L 16 114/54 95 07/07/23 04:00 58 L 16 117/51 95 07/07/23 02:00 51 L 14 125/56 93 L 07/06/23 19:19 59 L 16 171/73 93 L 07/06/23 18:18 168/70 07/06/23 18:11 59 L 18 196/59 94 L 07/06/23 13:28 98.2 F 56 L 18 162/71 97 Intake and Output 07/06/23 07/07/23 07/07/23 22:59 06:59 14:59 Intake Total 618 Balance 618 Intake: Oral 618 Other: Voiding Method External Catheter Weight 65.771 kg patient is awake, comfortable, in no acute distress Bruising noted on the face near the right eye. Examination of the heart S1 and S2 Examination of the lungs bilateral breath sounds are heard Abdomen is soft nontender Examination of lower extremities shows no significant edema. Results - Lab Results Most recent lab results Calcium 9.1 mg/dL (8.7-10.3) 07/07/23 07:45 Magnesium 1.8 mg/dL (1.6-2.3) 07/06/23 14:36 07/06/23 14:36 07/07/23 07:45 Assessment and Plan Assessment: 1. End-stage renal disease on hemodialysis on a Wednesday schedule. 2. Status post fall with history of multiple falls over the last 1-2 weeks. No evidence of hypotension. heart rate documented at 55-49. 3. hypertension with CK D stage IV 5 maintained on Coreg and losartan and Procardia. 4. CK D mineral bone disorder Plan: hemodialysis in a.m. Hold Coreg for now. Resume phosphate binders
[2023-07-07] MEDS: ASPIRIN 81 MG PO SCH (12:30)
[2023-07-07] MEDS: CITALOPRAM HYDROBROMIDE 20 MG TAB PO SCH (12:38)
--- NOTE | 2023-07-07 12:47 | P.HPIM ---
History of Present Illness 68-year-old female with end-stage renal disease was going home from dialysis and ended up falling patient is not sure if she lost consciousness she states she may have lost consciousness I do not have any EKG available patient is mildly bradycardic patient blood pressures were also low. Patient is on nifedipine lisinopril, Coreg to 12.5 twice daily. Patient does not have any other abnormality. Patient is not septic. REVIEW OF SYSTEMS: CONSTITUTIONAL: No fever, no malaise, no fatigue. HEENT: No recent visual problems or hearing problems. Denied any sore throat. CARDIOVASCULAR: No chest pain, orthopnea, PND, no palpitations PULMONARY: No shortness of breath, no cough, no hemoptysis. GASTROINTESTINAL: No diarrhea, no nausea, no vomiting, no abdominal pain. NEUROLOGICAL: No headaches, no weakness, no numbness. HEMATOLOGICAL: Denies any bleeding or petechiae. GENITOURINARY: Denies any burning micturition, frequency, or urgency. MUSCULOSKELETAL/RHEUMATOLOGICAL: Denies any joint pain, swelling, or any muscle pain. ENDOCRINE: Denies any polyuria or polydipsia. The rest of the 14-point review of systems is negative. PHYSICAL EXAMINATION: GENERAL: The patient is alert and oriented x3, not in any acute distress. Well developed, well nourished. HEENT: Pupils are round and equally reacting to light. EOMI. No scleral icterus. No conjunctival pallor. Normocephalic, atraumatic. No pharyngeal erythema. No t hyromegaly. CARDIOVASCULAR: S1 and S2 present. No murmurs, rubs, or gallops. PULMONARY: Chest is clear to auscultation, no wheezing or crackles. ABDOMEN: Soft, nontender, nondistended, normoactive bowel sounds. No palpable organomegaly. MUSCULOSKELETAL: No joint swelling or deformity. EXTREMITIES: No cyanosis, clubbing, or pedal edema. NEUROLOGICAL: Gross neurological examination did not reveal any focal deficits. Significant generalized weakness SKIN: No rashes. Assessment and plan -Generalized weakness: As related and due to her chronic medical problems physical therapy and Occupational Therapy evaluation -Possibility of syncope: Will obtain echocardiogram, EKG will be ordered patient has mild bradycardia will obtain an EKG will cut down the dose of Coreg we will cut down the dose of losartan monitor overnight. -End-stage renal renal disease hemodialysis dependent Wednesday will continue her usual dialysis -Seizure history -CVA TIA in the past -Hyperlipidemia -Hypertension patient is slightly hypertensive at this time -Sleep apnea uses CPAP machine at home DVT prophylaxis: Subcutaneous heparin Past Medical History Past Medical History: Coronary Artery Disease (CAD), CVA/TIA, Diabetes Mellitus, Dialysis, Hyperlipidemia, Hypertension, Osteoarthritis (OA), Renal Disease, Sleep Apnea/CPAP/BIPAP Additional Past Medical History / Comment(s): varicose veins (removed)., stroke X3-left side weaker uses a walker and w/c,- states she usually needs assistance with ambulation., TIA's, no CPAP used, hiatal hernia, ESRD - hemodialysis , , . with fistula left forearm., recent removal of peritoneal dialysis catheter., urinates freq small amounts, hx bleeding ulcer., History of Any Multi-Drug Resistant Organisms: None Reported Past Surgical History: Breast Surgery, Heart Catheterization, Orthopedic Surgery Additional Past Surgical History / Comment(s): Bilat Carotid Endarterectomy, lumpectomy Rt breast, CTR bilateral wrists, pilonidal cyst removal, varicose vein removal, bilateral cataracts removed, Fistula left wrist surgery 2019; Fistula revision 05/30/20., peritoneal dialysis catheter and removal Past Anesthesia/Blood Transfusion Reactions: Previous Problems w/ Anesthesia, Motion Sickness Additional Past Anesthesia/Blood Transfusion Reaction / Comment(s): Had trouble waking up after surgery. no problems with prior blood transfusion Past Psychological History: No Psychological Hx Reported Smoking Status: Former smoker Past Alcohol Use History: None Reported Additional Past Alcohol Use History / Comment(s): Quit smoking 2009 est, started smoking as a teen, 1 PPD. Past Drug Use History: None Reported - Past Family History Mother Family Medical History: Cancer Additional Family Medical History / Comment(s): breast cancer w/ mets Father Family Medical History: Cancer Additional Family Medical History / Comment(s): esophageal cancer Brother(s) Family Medical History: Cancer Additional Family Medical History / Comment(s): colon cancer, esophageal cancer Medications and Allergies Home Medications Medication Instructions Recorded Confirmed Type Aspirin EC [Ecotrin Low Dose] 81 mg PO DAILY 09/19/15 07/06/23 History Albuterol Inhaler [Ventolin Hfa 1 - 2 puff INHALATION RT-Q6H PRN 10/29/22 07/06/23 History Inhaler] Bumetanide [BUMEX] 5 mg PO DAILY 10/29/22 07/06/23 History Calcium Acetate [PhosLo] 667 mg PO W/SUPPER 10/29/22 07/06/23 History Ferrous Sulfate [Iron] 325 mg PO BID 10/29/22 07/06/23 History INSULIN LISPRO (HumaLOG) [humaLOG] See Protocol SQ ACHS PRN 10/29/22 07/06/23 History NIFEdipine [Procardia XL] 90 mg PO HS 10/29/22 07/06/23 History Sucralfate [Carafate] 1 gm PO BID 10/29/22 07/06/23 History metOLazone [Zaroxolyn] 2.5 mg PO BID 11/18/22 07/06/23 History Atorvastatin [Lipitor] 20 mg PO HS 07/06/23 07/06/23 History Citalopram Hydrobromide [CeleXA] 20 mg PO DAILY 07/06/23 07/06/23 History Losartan Potassium 100 mg PO DAILY 07/06/23 07/06/23 History Vit B Complx C/Folic Acid/Zinc 1 tab PO TUTHSA 07/06/23 07/06/23 History [Renaplex Tablet] carvediloL [Coreg] 12.5 mg PO BID 07/06/23 07/06/23 History Allergies Allergy/AdvReac Type Severity Reaction Status Date / Time captopril Allergy Cough Verified 07/06/23 17:31 cephalexin monohydrate Allergy Rash/Hives Verified 07/06/23 17:31 [From Keflex] Penicillins Allergy Rash/Hives Verified 07/06/23 17:31 Physical Exam Vitals: Vital Signs Temp Pulse Pulse Resp BP BP Pulse Ox 07/07/23 12:42 46 L 07/07/23 09:20 95 07/07/23 08:00 98.1 F 49 L 18 124/60 91 L 07/07/23 06:10 53 L 16 114/54 95 07/07/23 04:00 58 L 16 117/51 95 07/07/23 02:00 51 L 14 125/56 93 L 07/06/23 19:19 59 L 16 171/73 93 L 07/06/23 18:18 168/70 07/06/23 18:11 59 L 18 196/59 94 L 07/06/23 13:28 98.2 F 56 L 18 162/71 97 Intake and Output 07/06/23 07/07/23 07/07/23 22:59 06:59 14:59 Intake Total 618 Balance 618 Intake: Oral 618 Other: Voiding Method External Catheter Weight 65.771 kg Results CBC & Chem 7: 07/06/23 14:36 07/07/23 07:45 Labs: Abnormal Lab Results - Last 24 Hours (Table) 07/06/23 07/06/23 07/07/23 Range/Units 14:36 14:36 04:48 RBC 3.47 L (3.80-5.40) m/uL Hgb 10.1 L (11.4-16.0) gm/dL Hct 30.5 L (34.0-46.0) % Plt Count 148 L (150-450) k/uL Lymphocytes # 0.4 L (1.0-4.8) k/uL Chloride 96 L (98-107) mmol/L Carbon Dioxide 31 H (22-30) mmol/L Anion Gap (4.00-12.00) mmol/L BUN 38 H (7-17) mg/dL Creatinine 3.37 H (0.52-1.04) mg/dL Est GFR (CKD-EPI) (>=60) BUN/Creatinine Ratio (12.00-20.00) Ratio Glucose 109 H (74-99) mg/dL ALT 39 H (4-34) U/L Alkaline Phosphatase 129 H (38-126) U/L Urine pH 8.5 H (5.0-8.0) Urine Protein 2+ H (Negative) Urine Mucus Rare H (None) /hpf 07/07/23 Range/Units 07:45 RBC (3.80-5.40) m/uL Hgb (11.4-16.0) gm/dL Hct (34.0-46.0) % Plt Count (150-450) k/uL Lymphocytes # (1.0-4.8) k/uL Chloride 95 L (98-107) mmol/L Carbon Dioxide (22-30) mmol/L Anion Gap 13.00 H (4.00-12.00) mmol/L BUN 47.6 H (7-17) mg/dL Creatinine 4.6 H (0.52-1.04) mg/dL Est GFR (CKD-EPI) 10 L (>=60) BUN/Creatinine Ratio 10.35 L (12.00-20.00) Ratio Glucose (74-99) mg/dL ALT (4-34) U/L Alkaline Phosphatase (38-126) U/L Urine pH (5.0-8.0) Urine Protein (Negative) Urine Mucus (None) /hpf Thrombosis Risk Factor Assmnt - Choose All That Apply Each Risk Factor Represents 2 Points: Age 61-74 years Other congenital or acquired thrombophilia - If yes, enter type in comment: No Thrombosis Risk Factor Assessment Total Risk Factor Score: 2 Thrombosis Risk Factor Assessment Level: Low Risk
[2023-07-07] MEDS: LOSARTAN 50 MG TAB PO SCH (13:25)
[2023-07-07] MEDS: BUMETANIDE 1 MG TAB PO SCH (14:44)
[2023-07-07] MEDS: CALCIUM ACETATE 667 MG TAB PO SCH (18:40)
[2023-07-07] MEDS: carvediloL 6.25 MG TAB PO SCH ×2 (19:58→22:34)
[2023-07-07] MEDS: HEPARIN SODIUM,PORCINE 5,000 UNIT/ML 1 ML VIAL SQ SCH (19:58)
--- NOTE | 2023-07-08 07:00 | CA ---
Transthoracic Echo Report Name: Ashlie Pop Age: 68 Gender: F : 1955 Exam Date: 07/07/2023 14:04 Exam Location: [facility] Ht (in): 68 Wt (lb): 145 Ordering Physician: García Espinoza MD Attending/Referring Phys: Ice Grinder Sparkle Arndt RDCS Procedure CPT: Indications: Syncope Cardiac Hx: Technical Quality: Fair Contrast 1: Total Dose (mL): Contrast 2: Total Dose (mL): MEASUREMENTS (Male / Female) Normal Values 2D ECHO LV Diastolic Diameter PLAX 5.1 cm 4.2 - 5.9 / 3.9 - 5.3 cm LV Systolic Diameter PLAX 3.5 cm IVS Diastolic Thickness 0.8 cm 0.6 - 1.0 / 0.6 - 0.9 cm LVPW Diastolic Thickness 0.9 cm 0.6 - 1.0 / 0.6 - 0.9 cm LV Relative Wall Thickness 0.3 LVOT Diameter 1.9 cm Aortic Root Diameter 2.8 cm LV Diastolic Volume MOD 4C 125.3 cm??? LV Systolic Volume MOD 4C 41.2 cm??? LV Ejection Fraction MOD 4C 67.1 % LV Cardiac Index MOD 4C 2271.3 cm???/min???m??? LV Diastolic Length 4C 9.1 cm LV Systolic Length 4C 7.3 cm Ascending Aorta Diameter 3.1 cm DOPPLER AV Peak Velocity 241.2 cm/s AV Peak Gradient 23.3 mmHg AV Mean Velocity 156.6 cm/s AV Mean Gradient 11.1 mmHg AV Velocity Time Integral 53.1 cm LVOT Peak Velocity 162.5 cm/s LVOT Peak Gradient 10.6 mmHg LVOT Velocity Time Integral 36.4 cm LVOT Stroke Volume 100.4 cm??? LVOT Stroke Volume Index 56.3 ml/m??? LVOT Cardiac Index 2711.4 cm???/min???m??? AV Area Cont Eq vti 1.9 cm??? AV Area Cont Eq pk 1.9 cm??? MV Peak Velocity 155.4 cm/s MV Peak Gradient 9.7 mmHg MV Mean Velocity 67.8 cm/s MV Mean Gradient 2.4 mmHg MV Velocity Time Integral 68.3 cm Mitral E Point Velocity 112.9 cm/s Mitral A Point Velocity 139.8 cm/s Mitral E to A Ratio 0.8 MV Deceleration Time 397.1 ms MV E' Velocity 4.9 cm/s Mitral E to MV E' Ratio 22.9 TR Peak Velocity 313.3 cm/s TR Peak Gradient 39.3 mmHg Right Atrial Pressure 20.0 mmHg Pulmonary Artery Systolic Pressu 59.3 mmHg Right Ventricular Systolic Press 59.3 mmHg PV Peak Velocity 85.5 cm/s PV Peak Gradient 2.9 mmHg FINDINGS Left Ventricle Left ventricular ejection fraction is estimated at 60-65 %. Left ventricular cavity size normal. Left ventricular wall thickness normal. No obvious regional wall motion abnormalities. Right Ventricle Normal right ventricular size and function. Severely elevated right ventricular systolic pressure. Right Atrium Moderate right atrial dilatation. Left Atrium Moderate left atrial dilatation. Mitral Valve Mitral valve thickened. Severely mitral annular calcification. No evidence for mitral valve prolapse. Mild mitral stenosis. Mild mitral regurgitation. Aortic Valve Aortic valve not well visualized. Diffuse thickening of the aortic valve cusps with reduced excursion. Tricuspid Valve Structurally normal tricuspid valve. No tricuspid stenosis. Mild tricuspid regurgitation. Pulmonic Valve Pulmonic valve not well visualized. No pulmonic stenosis. No pulmonic regurgitation. Pericardium No pericardial effusion. Aorta Normal size aortic root and proximal ascending aorta. CONCLUSIONS Technically difficult study Normal LV systolic function Severely thickened mitral valve leaflets with mild mitral stenosis and mild mitral regurgitation Aortic sclerosis with mild aortic stenosis Severe pulmonary hypertension Previewed by: Dr. Dagoberto Shearer MD (Electronically Signed) Final Date: 08 Jul 2023 06:59
[2023-07-08 08:48] LABS: Glucose,Whole Blood 107 mg/dL (70-110)
--- NOTE | 2023-07-08 11:34 | P.PN ---
Subjective Patient is seen in follow-up for end-stage renal disease. She is maintained on hemodialysis on Wednesday schedule. Resting in bed. Still feels quite weak. Hemodynamically stable. Vital signs are stable. General: No acute distress. HEENT: Head exam is unremarkable. LUNGS: No audible rhonchi or wheezes. HEART: Rate and Rhythm are regular. ABDOMEN: Nontender. EXTREMITITES: No edema. Objective - Vital Signs Vital signs: Vital Signs Temp 97.8 F 07/08/23 07:00 Pulse 60 07/08/23 07:00 Resp 16 07/08/23 07:00 BP 155/53 07/08/23 07:00 Pulse Ox 94 L 07/08/23 07:00 FiO2 Intake & Output 07/07/23 07/08/23 07/08/23 18:59 06:59 18:59 Intake Total 618 Output Total 91 0 Balance 527 0 Weight 65.771 kg Intake: Oral 618 Output: Urine 0 Post Void Residual 91 Other: Voiding Method External Catheter External Catheter External Catheter # Voids 0 1 # Bowel Movements 1 - Labs CBC & Chem 7: 07/06/23 14:36 07/07/23 07:45 Labs: Abnormal Lab Results - Last 24 Hours (Table) 07/07/23 Range/Units 07:45 Chloride 95 L (96-109) mmol/L Anion Gap 13.00 H (4.00-12.00) mmol/L BUN 47.6 H (9.0-27.0) mg/dL Creatinine 4.6 H (0.6-1.5) mg/dL Est GFR (CKD-EPI) 10 L (>=60) BUN/Creatinine Ratio 10.35 L (12.00-20.00) Ratio Assessment and Plan Plan: Assessment: 1. End-stage renal disease maintained on hemodialysis on Wednesday schedule. 2. Generalized weakness with falls prior to admission. 3. Chronic kidney disease mineral bone disease maintained on PhosLo. 4. Hypertension with chronic kidney disease. Stable. 5. Anemia of chronic kidney disease. Plan: Hemodialysis today. Check iron studies. Check phosphorus level.
[2023-07-08] MEDS: LOSARTAN 50 MG TAB PO SCH (13:13)
[2023-07-08 14:57] LABS: % Iron Saturation 10.8 (12.00-45.00); Phosphorus 1.9 mg/dL (2.4-5.1)
--- NOTE | 2023-07-08 16:03 | P.PN ---
Subjective Progress Note Date: 07/08/23 68-year-old female with end-stage renal disease was going home from dialysis and ended up falling patient is not sure if she lost consciousness she states she may have lost consciousness I do not have any EKG available patient is mildly bradycardic patient blood pressures were also low. Patient is on nifedipine lisinopril, Coreg to 12.5 twice daily. Patient does not have any other abnormality. Patient is not septic. 07/08/2023 Patient is seen in follow-up this morning being followed by nephrology. Patient is maintained on hemodialysis Wednesday//Wednesday and currently receiving dialysis today. Patient reports continued weakness and gait dysfunction and evaluated by physical therapy recommending rehab and patient and family are agreeable. Patient will require insurance authorization which has been submitted and pending with social work following. 2D echo was done which showed a difficult study with normal LV systolic function with an EF of 60 to 65%, with a severely thickened mitral valve leaflets with mild mitral stenosis and regurgitation, aortic sclerosis with mild aortic stenosis and severe pulmonary hypertension. Patient is afebrile with no reports of chest pain and reporting some shortness of breath. Patient reports does not wear oxygen outpatient. Slightly volume overloaded. Blood pressures elevating and will adjust medications accordingly. Review of systems: Constitutional: No reports of fatigue, fever, or chills Cardiovascular: No reports of chest pain or palpitations Respiratory: reports of intermittent shortness of breath, denies cough GI: No reports of nausea, vomiting, or diarrhea : No reports of dysuria or retention Neurovascular: reports of generalized weakness All medications have been reviewed PHYSICAL EXAMINATION: GENERAL: The patient is alert and oriented x3. Well developed, well nourished. Elderly appearing HEENT: Pupils are round and equally reacting to light. EOMI. No scleral icterus. No conjunctival pallor. Normocephalic, atraumatic. No pharyngeal erythema. No thyromegaly. CARDIOVASCULAR: S1 and S2 are muffled PULMONARY: Diminished breath sounds bilaterally otherwise chest is clear to auscultation, no wheezing or crackles. ABDOMEN: Soft, nontender, nondistended, normoactive bowel sounds. No palpable organomegaly. MUSCULOSKELETAL: No joint swelling or deformity. EXTREMITIES: No cyanosis, clubbing, or pedal edema. NEUROLOGICAL: Gross neurological examination did not reveal any focal deficits. Significant generalized weakness SKIN: No rashes. Assessment: -Generalized weakness: Likely secondary to chronic medical problems -Possibility of syncope, possibly secondary to blood pressure medications -End-stage renal renal disease hemodialysis dependent Wednesday will continue her usual dialysis, receiving dialysis today -Seizure history -CVA TIA in the past -Gait dysfunction, high risk for falls -Hyperlipidemia -Hypertension history -Sleep apnea uses CPAP machine at home -GI prophylaxis -DVT prophylaxis: Subcutaneous heparin -Full code Plan: Patient currently receiving hemodialysis today maintained on Wednesday//Wednesday schedule with nephrology following Iron studies ordered and pending Adjustments to blood pressure medications being done Patient evaluated by physical therapy recommending rehab and patient is agreeable. Family feels she would benefit from continued strength and mobility at an [facility] Social work following working on discharge planning and will require insurance authorization which was submitted Possible discharge planning in the next 24 to 48 hours The impression and plan of care has been dictated by Radha Parikh, Nurse Practitioner as directed. Dr. Alexis MD I have performed a history and examination and MDM of this patient, discussed the same with the dictator, and agree with the dictator's assessment and plan as written ,documented as a scribe. Based on total visit time, I have performed more than 50% of the visit. Objective - Vital Signs Vital signs: Vital Signs Temp 97.8 F 07/08/23 07:00 Pulse 60 07/08/23 07:00 Resp 16 07/08/23 07:00 BP 155/53 07/08/23 07:00 Pulse Ox 94 L 07/08/23 07:00 FiO2 Intake & Output 07/07/23 07/08/23 07/08/23 18:59 06:59 18:59 Intake Total 618 Output Total 91 0 Balance 527 0 Weight 65.771 kg Intake: Oral 618 Output: Urine 0 Post Void Residual 91 Other: Voiding Method External Catheter External Catheter # Voids 0 1 # Bowel Movements 1 - Labs CBC & Chem 7: 07/06/23 14:36 07/07/23 07:45 Labs: Abnormal Lab Results - Last 24 Hours (Table) 07/07/23 Range/Units 07:45 Chloride 95 L (96-109) mmol/L Anion Gap 13.00 H (4.00-12.00) mmol/L BUN 47.6 H (9.0-27.0) mg/dL Creatinine 4.6 H (0.6-1.5) mg/dL Est GFR (CKD-EPI) 10 L (>=60) BUN/Creatinine Ratio 10.35 L (12.00-20.00) Ratio
--- NOTE | 2023-07-09 08:24 | CDI ---
Documentation Clarification Form Date: 07/09/2023 From: Bia Farrar Phone: [phone] Admit Date: 07/06/2023 05:21:00 PM Patient Name: Ashlie Pop Visit Number: [id number] Discharge Date: ATTENTION: The Clinical Documentation Specialists (CDI) and [facility] Coding Staff appreciate your assistance in clarifying documentation. Please respond to the clarification below the line at the bottom and electronically sign. The CDI & [facility] Coding staff will review the response and follow-up if needed. Please note: Queries are made part of the Legal Health Record. If you have any questions, please contact the author of this message via ITS. JAY JAY Brunner: The patients principal diagnosis the diagnosis that was chiefly responsible for the admission - has not been clearly identified and clarification is requested. History/Risk factors: ESRD, who presents with generalized weakness after fall with possibility of syncope Clinical Indicators: 07/05 Triage VS: 162/71, 98.2, 56, 18, 97% room air 07/06 H&P, Assessment and Plan: "Generalized weakness: As related and due to her chronic medical problems, Possibility of syncope, patient has mild bradycardia will cut down dose of Coreg, Hypertension, patients slightly hypertensive at this time." 07/06 Nephrology consult, Assessment and Plan: "2. Status post fall with history of multiple falls over the last 1-2 weeks. No evidence of hypotension, heart rate documented at 55-49." Plan: "Hold Coreg for now." 07/07 IM PN, Assessment: "Possibility of syncope, possibly secondary to blood pressure medications. Plan: "Adjustments to blood pressure medications being done. Physical therapy recommending rehab." 07/06 Physical Therapy Evaluation, Discharge recommendations: "Sub-acute rehabilitation" 07/06 Occupational Therapy Evaluation, Discharge recommendations: "Sub-acute rehab" 07/06 ECHO, EF: 60-65%, severe pulmonary hypertension, Normal LV systolic function, severely thickened mitral valve leaflets with mild mitral stenosis and mild mitral regurgitation, aortic sclerosis Treatment: Monitor blood pressure and titrate blood pressure meds PT/OT evaluations In your professional opinion, can you please clarify which diagnosis, after study, was the reason chiefly responsible for the admission? [ x ] Age related physical debility [ ] Syncope due to bradycardia [ ] Hypertension [ ] Other, please specify [ ] Unable to determine MTDD
[2023-07-09] MEDS ORDERED: Phosphorus Replacement Protoco 1 EACH MISC MISCELLANE PRN (11:42)
--- NOTE | 2023-07-09 11:44 | P.PN ---
Subjective Patient is seen in follow-up for end-stage renal disease. She is maintained on hemodialysis on Wednesday schedule. Resting in bed. Still feels quite weak. Hemodynamically stable. Working with physical therapy. No problems with dialysis yesterday. Vital signs are stable. General: No acute distress. HEENT: Head exam is unremarkable. LUNGS: No audible rhonchi or wheezes. HEART: Rate and Rhythm are regular. ABDOMEN: Nontender. EXTREMITITES: No edema. Objective - Vital Signs Vital signs: Vital Signs Temp 98.9 F 07/09/23 07:50 Pulse 52 L 07/09/23 07:50 Resp 15 07/09/23 07:50 BP 131/66 07/09/23 07:50 Pulse Ox 92 L 07/09/23 07:50 FiO2 Intake & Output 07/08/23 07/09/23 07/09/23 18:59 06:59 18:59 Intake Total 918 590 Output Total 1800 0 Balance -882 0 590 Intake: Oral 118 590 Hemodialysis 800 Output: Urine 0 Hemodialysis 1800 Other: Voiding Method External Catheter Diaper Diaper # Voids 0 1 - Labs CBC & Chem 7: 07/06/23 14:36 07/07/23 07:45 Labs: Abnormal Lab Results - Last 24 Hours (Table) 07/08/23 Range/Units 12:06 Phosphorus 1.9 L (2.4-5.1) mg/dL Iron 23 L (50-170) UG/DL TIBC 213 L (228-460) UG/DL % Saturation 10.80 L (12.00-45.00) Transferrin 152.0 L (204.0-354.0) mg/dL Ferritin 1160.0 H (10.0-291.0) ng/mL Assessment and Plan Plan: Assessment: 1. End-stage renal disease maintained on hemodialysis on Wednesday schedule. 2. Generalized weakness with falls prior to admission. Working with physical therapy. 3. Chronic kidney disease mineral bone disease maintained on PhosLo. 4. Hypertension with chronic kidney disease. Stable. 5. Anemia of chronic kidney disease. Iron deficiency noted. Plan: Hemodialysis tomorrow. Add IV iron. Phosphorus level low at 1.9. Will replace. Stop PhosLo.
[2023-07-09] MEDS: SODIUM FERRIC GLUCONAT-SUCROSE 125 MG in SODIUM CHLORIDE 0.9% 100 ML IVPB SCH (13:35)
[2023-07-09] MEDS: SODIUM PHOSPHATE 15 MMOL in DEXTROSE 5% IN WATER 250 ML IVPB ONE (15:26)
--- NOTE | 2023-07-09 16:17 | P.PN ---
Subjective Progress Note Date: 07/09/23 68-year-old female with end-stage renal disease was going home from dialysis and ended up falling patient is not sure if she lost consciousness she states she may have lost consciousness I do not have any EKG available patient is mildly bradycardic patient blood pressures were also low. Patient is on nifedipine lisinopril, Coreg to 12.5 twice daily. Patient does not have any other abnormality. Patient is not septic. 07/08/2023 Patient is seen in follow-up this morning being followed by nephrology. Patient is maintained on hemodialysis Wednesday//Wednesday and currently receiving dialysis today. Patient reports continued weakness and gait dysfunction and evaluated by physical therapy recommending rehab and patient and family are agreeable. Patient will require insurance authorization which has been submitted and pending with social work following. 2D echo was done which showed a difficult study with normal LV systolic function with an EF of 60 to 65%, with a severely thickened mitral valve leaflets with mild mitral stenosis and regurgitation, aortic sclerosis with mild aortic stenosis and severe pulmonary hypertension. Patient is afebrile with no reports of chest pain and reporting some shortness of breath. Patient reports does not wear oxygen outpatient. Slightly volume overloaded. Blood pressures elevating and will adjust medications accordingly. 07/09/2023 Patient is seen in follow-up this morning sitting up in the chair evaluated by physical therapy recommending rehab and patient is agreeable. Daughter at home reports she has been falling almost every day with significant weakness and generalized debility would benefit from rehab. Case management/social work following currently working on possible facilities that can accommodate dialysis as well as continued strength and mobility. Patient will require insurance authorization which is pending at this time. [facility] has declined the patient and [facility] reviewing the patient as well as [facility] although unsure if they can accommodate as there is no female bed in dialysis these would need to be ad justed. Patient is maintained on Wednesday//Wednesday schedule. Patient reports feeling well and tolerating diet with no reports of nausea or vomiting. Patient denies chest pain or shortness of breath at this time. Review of systems: Constitutional: No reports of fatigue, fever, or chills Cardiovascular: No reports of chest pain or palpitations Respiratory: reports of intermittent shortness of breath, denies cough GI: No reports of nausea, vomiting, or diarrhea : No reports of dysuria or retention Neurovascular: reports of generalized weakness All medications have been reviewed PHYSICAL EXAMINATION: GENERAL: The patient is alert and oriented x3. Well developed, well nourished. Thin built, elderly appearing HEENT: Pupils are round and equally reacting to light. EOMI. No scleral icterus. No conjunctival pallor. Normocephalic, atraumatic. No pharyngeal erythema. No thyromegaly. CARDIOVASCULAR: S1 and S2 are muffled PULMONARY: Diminished breath sounds bilaterally otherwise chest is clear to auscultation, no wheezing or crackles. ABDOMEN: Soft, nontender, nondistended, normoactive bowel sounds. No palpable organomegaly. MUSCULOSKELETAL: No joint swelling or deformity. EXTREMITIES: No cyanosis, clubbing, or pedal edema. NEUROLOGICAL: Gross neurological examination did not reveal any focal deficits. Significant generalized weakness SKIN: No rashes. Assessment: -Generalized weakness: Secondary to chronic comorbidities and age related physical debility -Possibility of syncope, possibly secondary to blood pressure medications, syncope ruled out [facility] -End-stage renal renal disease hemodialysis dependent Wednesday will continue her usual dialysis, receiving dialysis today -Seizure history -CVA TIA in the past -Gait dysfunction, recurrent falls at home almost daily per daughter at home -Hyperlipidemia -Hypertension history -Sleep apnea uses CPAP machine at home -GI prophylaxis -DVT prophylaxis: Subcutaneous heparin -Full code Plan: Patient currently maintained on hemodialysis Wednesday//Wednesday schedule with nephrology following. Plan for scheduled dialysis tomorrow Iron studies on the low side patient is receiving IV Iron. Patient is maintained on ferrous sulfate twice daily and will continue Adjustments to blood pressure medications being done Patient evaluated by physical therapy recommending rehab and patient is agreeable. Family feels she would benefit from continued strength and mobility at an ECF as patient has been having recurrent falls and falling almost daily. Family feels patient is unsafe to return home at this time. Case management following and insurance authorization is pending and no excepting ECF at this time. [facility] are reviewing. Patient was declined by [facility] Patient will likely be here over the weekend as we currently have no accepting ECF and insurance authorization is pending The impression and plan of care has been dictated by Radha Parikh, Nurse Practitioner as directed. Dr. Alexis MD I have performed a history and examination and MDM of this patient, discussed the same with the dictator, and agree with the dictator's assessment and plan as written ,documented as a scribe. Based on total visit time, I have performed more than 50% of the visit. Objective - Vital Signs Vital signs: Vital Signs Temp 98.2 F 07/09/23 14:59 Pulse 55 L 07/09/23 14:59 Resp 16 07/09/23 14:59 BP 149/68 07/09/23 14:59 Pulse Ox 96 07/09/23 14:59 FiO2 Intake & Output 07/08/23 07/09/23 07/09/23 18:59 06:59 18:59 Intake Total 918 830 Output Total 1800 0 Balance -882 0 830 Intake: Oral 118 830 Hemodialysis 800 Output: Urine 0 Hemodialysis 1800 Other: Voiding Method External Catheter Diaper Diaper # Voids 0 1 2 - Labs CBC & Chem 7: 07/06/23 14:36 07/07/23 07:45
--- NOTE | 2023-07-10 11:00 | P.PN ---
Subjective Patient is seen in follow-up for end-stage renal disease. She is maintained on hemodialysis on Wednesday schedule. Resting in bed. Hemodynamically stable. Working with physical therapy. Scheduled for dialysis today. Vital signs are stable. General: No acute distress. HEENT: Head exam is unremarkable. LUNGS: No audible rhonchi or wheezes. HEART: Rate and Rhythm are regular. ABDOMEN: Nontender. EXTREMITITES: No edema. Objective - Vital Signs Vital signs: Vital Signs Temp 98.2 F 07/10/23 07:00 Pulse 61 07/10/23 07:00 Resp 16 07/10/23 09:53 BP 154/74 07/10/23 07:00 Pulse Ox 93 L 07/10/23 07:00 FiO2 Intake & Output 07/09/23 07/10/23 07/10/23 18:59 06:59 18:59 Intake Total 830 240 Output Total 0 Balance 830 0 240 Intake: Oral 830 240 Output: Urine 0 Other: Voiding Method Diaper Diaper Bedside Commode Diaper # Voids 2 1 2 - Labs CBC & Chem 7: 07/06/23 14:36 07/07/23 07:45 Assessment and Plan Plan: Assessment: 1. End-stage renal disease maintained on hemodialysis on Wednesday schedule. 2. Generalized weakness with falls prior to admission. Working with physical therapy. 3. Chronic kidney disease mineral bone disease maintained on PhosLo. 4. Hypertension with chronic kidney disease. Stable. 5. Anemia of chronic kidney disease. Iron deficiency noted. 6. Hypophosphatemia from PhosLo. Replaced. Phosphorus level 5.1 today. PhosLo on hold. Plan: Hemodialysis today. Maintain IV iron.
--- NOTE | 2023-07-10 19:06 | P.PN ---
Subjective Progress Note Date: 07/10/23 68-year-old female with end-stage renal disease was going home from dialysis and ended up falling patient is not sure if she lost consciousness she states she may have lost consciousness I do not have any EKG available patient is mildly bradycardic patient blood pressures were also low. Patient is on nifedipine lisinopril, Coreg to 12.5 twice daily. Patient does not have any other abnormality. Patient is not septic. 07/08/2023 Patient is seen in follow-up this morning being followed by nephrology. Patient is maintained on hemodialysis Wednesday//Wednesday and currently receiving dialysis today. Patient reports continued weakness and gait dysfunction and evaluated by physical therapy recommending rehab and patient and family are agreeable. Patient will require insurance authorization which has been submitted and pending with social work following. 2D echo was done which showed a difficult study with normal LV systolic function with an EF of 60 to 65%, with a severely thickened mitral valve leaflets with mild mitral stenosis and regurgitation, aortic sclerosis with mild aortic stenosis and severe pulmonary hypertension. Patient is afebrile with no reports of chest pain and reporting some shortness of breath. Patient reports does not wear oxygen outpatient. Slightly volume overloaded. Blood pressures elevating and will adjust medications accordingly. 07/09/2023 Patient is seen in follow-up this morning sitting up in the chair evaluated by physical therapy recommending rehab and patient is agreeable. Daughter at home reports she has been falling almost every day with significant weakness and generalized debility would benefit from rehab. Case management/social work following currently working on possible facilities that can accommodate dialysis as well as continued strength and mobility. Patient will require insurance authorization which is pending at this time. [facility] has declined the patient and [facility] reviewing the patient as well as [facility] although unsure if they can accommodate as there is no female bed in dialysis these would need to be adjusted. Patient is maintained on Wednesday//Wednesday schedule. Patient reports feeling well and tolerating diet with no reports of nausea or vomiting. Patient denies chest pain or shortness of breath at this time. 07/10/2023 Patient is evaluated in follow-up today on the medical floor. Patient is scheduled to undergo hemodialysis today as her usual dialysis are Wednesday visit Wednesday. Patient is currently awaiting rehabilitation and will discharge on Wednesday. Patient is in no acute complaints overnight. She is receiving IV iron for a diagnosis of iron deficiency anemia her phosphorus level has improved up to 5.1 after supplementation. Review of systems: Constitutional: No reports of fatigue, fever, or chills Cardiovascular: No reports of chest pain or palpitations Respiratory: reports of intermittent shortness of breath, denies cough GI: No reports of nausea, vomiting, or diarrhea : No reports of dysuria or retention Neurovascular: reports of generalized weakness All medications have been reviewed PHYSICAL EXAMINATION: GENERAL: The patient is alert and oriented x3. Well developed, well nourished. Thin built, elderly appearing HEENT: Pupils are round and equally reacting to light. EOMI. No scleral icterus. No conjunctival pallor. Normocephalic, atraumatic. No pharyngeal erythema. No thyromegaly. CARDIOVASCULAR: S1 and S2 are muffled PULMONARY: Diminished breath sounds bilaterally otherwise chest is clear to auscultation, no wheezing or crackles. ABDOMEN: Soft, nontender, nondistended, normoactive bowel sounds. No palpable organomegaly. MUSCULOSKELETAL: No joint swelling or deformity. EXTREMITIES: No cyanosis, clubbing, or pedal edema. NEUROLOGICAL: Gross neurological examination did not reveal any focal deficits. Significant generalized weakness SKIN: No rashes. Assessment: -Generalized weakness: Secondary to chronic comorbidities and age related physical debility -Possibility of syncope, possibly secondary to blood pressure medications, syncope ruled out [facility] -End-stage renal renal disease hemodialysis dependent Wednesday will continue her usual dialysis, receiving dialysis today -Seizure history -CVA TIA in the past -Gait dysfunction, recurrent falls at home almost daily per daughter at home -Hyperlipidemia -Hypertension history -Sleep apnea uses CPAP machine at home -GI prophylaxis -DVT prophylaxis: Subcutaneous heparin -Full code Plan: Patient currently maintained on hemodialysis Wednesday//Wednesday schedule with nephrology following. Plan for scheduled dialysis tomorrow Iron studies on the low side patient is receiving IV Iron. Patient is maintained on ferrous sulfate twice daily and will continue Adjustments to blood pressure medications being done Patient evaluated by physical therapy recommending rehab and patient is agreeable. Family feels she would benefit from continued strength and mobility at an F as patient has been having recurrent falls and falling almost daily. Family feels patient is unsafe to return home at this time. Case management following and insurance authorization is pending and no excepting ECF at this time. [facility] are reviewing. Patient was declined by [facility] Patient will likely be here over the weekend as we currently have no accepting ECF and insurance authorization is pending The impression and plan of care has been dictated by Ann Day, Nurse Practitioner as directed. Dr. Alexis MD I have performed a history and physical examination and medical decision making of this patient, discussed the same with the dictator, and agree with the dictators assessment and plan as written, documented as a scribe. Based on total visit time, I have performed more than 50% of this visit. Objective - Vital Signs Vital signs: Vital Signs Temp 98.2 F 07/10/23 07:00 Pulse 61 07/10/23 07:00 Resp 16 07/10/23 07:00 BP 154/74 07/10/23 07:00 Pulse Ox 93 L 07/10/23 07:00 FiO2 Intake & Output 07/09/23 07/10/23 07/10/23 18:59 06:59 18:59 Intake Total 830 Output Total 0 Balance 830 0 Intake: Oral 830 Output: Urine 0 Other: Voiding Method Diaper Diaper # Voids 2 1 - Labs CBC & Chem 7: 07/06/23 14:36 07/07/23 07:45 Assessment and Plan Time with Patient: Less than 30
--- NOTE | 2023-07-11 10:48 | P.PN ---
Subjective Patient is seen in follow-up for end-stage renal disease. She is maintained on hemodialysis on Wednesday schedule. Resting in bed. Hemodynamically stable. Working with physical therapy. Tolerated 1.5 L ultrafiltration yesterday. Vital signs are stable. General: No acute distress. HEENT: Head exam is unremarkable. LUNGS: No audible rhonchi or wheezes. HEART: Rate and Rhythm are regular. ABDOMEN: Nontender. EXTREMITITES: No edema. Objective - Vital Signs Vital signs: Vital Signs Temp 98.7 F 07/11/23 08:00 Pulse 73 07/11/23 08:00 Resp 16 07/11/23 08:24 BP 157/69 07/11/23 08:00 Pulse Ox 94 L 07/11/23 08:00 FiO2 Intake & Output 07/10/23 07/11/23 07/11/23 18:59 06:59 18:59 Intake Total 976 118 Output Total 1900 Balance -924 118 Intake: Oral 576 118 Hemodialysis 400 Output: Hemodialysis 1900 Other: Voiding Method Bedside Commode Bedside Commode Bedside Commode Diaper Diaper Diaper # Voids 2 0 - Labs CBC & Chem 7: 07/06/23 14:36 07/07/23 07:45 Assessment and Plan Plan: Assessment: 1. End-stage renal disease maintained on hemodialysis on Wednesday schedule. Patient will be changing over to Wednesday schedule upon discharge when she goes to rehab. 2. Generalized weakness with falls prior to admission. Working with physical therapy. 3. Chronic kidney disease mineral bone disease maintained on PhosLo. 4. Hypertension with chronic kidney disease. Stable. 5. Anemia of chronic kidney disease. Iron deficiency noted. 6. Hypophosphatemia from PhosLo. Replaced. Phosphorus level 5.1 today. PhosLo on hold. Plan: Hemodialysis with hemodialysis tomorrow and then maintain Wednesday schedule. Maintain IV iron.
--- NOTE | 2023-07-11 15:15 | P.PN ---
Subjective Progress Note Date: 07/11/23 68-year-old female with end-stage renal disease was going home from dialysis and ended up falling patient is not sure if she lost consciousness she states she may have lost consciousness I do not have any EKG available patient is mildly bradycardic patient blood pressures were also low. Patient is on nifedipine lisinopril, Coreg to 12.5 twice daily. Patient does not have any other abnormality. Patient is not septic. 07/08/2023 Patient is seen in follow-up this morning being followed by nephrology. Patient is maintained on hemodialysis Wednesday//Wednesday and currently receiving dialysis today. Patient reports continued weakness and gait dysfunction and evaluated by physical therapy recommending rehab and patient and family are agreeable. Patient will require insurance authorization which has been submitted and pending with social work following. 2D echo was done which showed a difficult study with normal LV systolic function with an EF of 60 to 65%, with a severely thickened mitral valve leaflets with mild mitral stenosis and regurgitation, aortic sclerosis with mild aortic stenosis and severe pulmonary hypertension. Patient is afebrile with no reports of chest pain and reporting some shortness of breath. Patient reports does not wear oxygen outpatient. Slightly volume overloaded. Blood pressures elevating and will adjust medications accordingly. 07/09/2023 Patient is seen in follow-up this morning sitting up in the chair evaluated by physical therapy recommending rehab and patient is agreeable. Daughter at home reports she has been falling almost every day with significant weakness and generalized debility would benefit from rehab. Case management/social work following currently working on possible facilities that can accommodate dialysis as well as continued strength and mobility. Patient will require insurance authorization which is pending at this time. [facility] has declined the patient and [facility] reviewing the patient as well as [facility] although unsure if they can accommodate as there is no female bed in dialysis these would need to be adjusted. Patient is maintained on Wednesday//Wednesday schedule. Patient reports feeling well and tolerating diet with no reports of nausea or vomiting. Patient denies chest pain or shortness of breath at this time. 07/10/2023 Patient is evaluated in follow-up today on the medical floor. Patient is scheduled to undergo hemodialysis today as her usual dialysis are Wednesday visit Wednesday. Patient is currently awaiting rehabilitation and will discharge on Wednesday. Patient is in no acute complaints overnight. She is receiving IV iron for a diagnosis of iron deficiency anemia her phosphorus level has improved up to 5.1 after supplementation. 07/11/2023 Patient is evaluated today in follow up resting in bed. No acute complaints overnight. Patient underwent usual hemodialysis session yesterday. Currently pending accepting facility and insurance authorization with plans for discharge Wednesday when social work is available for coordination. Patient is continued on IV iron daily. Review of systems: Constitutional: No reports of fatigue, fever, or chills Cardiovascular: No reports of chest pain or palpitations Respiratory: reports of intermittent shortness of breath, denies cough GI: No reports of nausea, vomiting, or diarrhea : No reports of dysuria or retention Neurovascular: reports of generalized weakness All medications have been reviewed PHYSICAL EXAMINATION: GENERAL: The patient is alert and oriented x3. Well developed, well nourished. Thin built, elderly appearing HEENT: Pupils are round and equally reacting to light. EOMI. No scleral icterus. No conjunctival pallor. Normocephalic, atraumatic. No pharyngeal erythema. No thyromegaly. CARDIOVASCULAR: S1 and S2 are muffled PULMONARY: Diminished breath sounds bilaterally otherwise chest is clear to auscultation, no wheezing or crackles. ABDOMEN: Soft, nontender, nondistended, normoactive bowel sounds. No palpable organomegaly. MUSCULOSKELETAL: No joint swelling or deformity. EXTREMITIES: No cyanosis, clubbing, or pedal edema. NEUROLOGICAL: Gross neurological examination did not reveal any focal deficits. Significant generalized weakness SKIN: No rashes. Assessment: -Generalized weakness: Secondary to chronic comorbidities and age related physical debility -Possibility of syncope, possibly secondary to blood pressure medications, syncope ruled out [facility] -End-stage renal renal disease hemodialysis dependent Wednesday will continue her usual dialysis. -Seizure history -CVA TIA in the past -Gait dysfunction, recurrent falls at home almost daily per daughter at home -Hyperlipidemia -Hypertension history -Sleep apnea uses CPAP machine at home -GI prophylaxis -DVT prophylaxis: Subcutaneous heparin -Full code Plan: Patient currently maintained on hemodialysis Wednesday//Wednesday schedule with nephrology following. Iron studies on the low side patient is receiving IV Iron. Patient is maintained on ferrous sulfate twice daily and will continue Adjustments to blood pressure medications being done Patient evaluated by physical therapy recommending rehab and patient is agreeable. Family feels she would benefit from continued strength and mobility at an ECF as patient has been having recurrent falls and falling almost daily. Family feels patient is unsafe to return home at this time. Case management following and insurance authorization is pending and no excepting ECF at this time. [facility] are reviewing. Patient was declined by [facility] Patient will likely be here over the weekend as we currently have no accepting ECF and insurance authorization is pending The impression and plan of care has been dictated by Ann Day, Nurse Practitioner as directed. Dr. Alexis MD I have performed a history and physical examination and medical decision making of this patient, discussed the same with the dictator, and agree with the dictators assessment and plan as written, documented as a scribe. Based on total visit time, I have performed more than 50% of this visit. Objective - Vital Signs Vital signs: Vital Signs Temp 99 F 07/11/23 14:00 Pulse 51 L 07/11/23 14:00 Resp 16 07/11/23 14:00 BP 126/49 07/11/23 14:00 Pulse Ox 92 L 07/11/23 14:00 FiO2 Intake & Output 07/10/23 07/11/23 07/11/23 18:59 06:59 18:59 Intake Total 976 355 Output Total 1900 Balance -924 355 Intake: Oral 576 355 Hemodialysis 400 Output: Hemodialysis 1900 Other: Voiding Method Bedside Commode Bedside Commode Bedside Commode Diaper Diaper Diaper # Voids 2 0 - Labs CBC & Chem 7: 07/06/23 14:36 07/07/23 07:45 Assessment and Plan Time with Patient: Less than 30
[2023-07-11 20:44] LABS: Glucose,Whole Blood 153 mg/dL (70-110)
[2023-07-12 01:06] VITALS: RESP 16
[2023-07-12] MEDS ORDERED: ALBUTEROL NEBULIZED 2.5 MG/3 ML INHALATION PRN (09:26)
--- NOTE | 2023-07-12 11:05 | P.PN ---
Subjective Patient is seen in follow-up for end-stage renal disease. Resting in bed. Hemodynamically stable. No active complaints. Vital signs are stable. General: No acute distress. HEENT: Head exam is unremarkable. LUNGS: No audible rhonchi or wheezes. HEART: Rate and Rhythm are regular. ABDOMEN: Nontender. EXTREMITITES: No edema. Objective - Vital Signs Vital signs: Vital Signs Temp 98.4 F 07/12/23 07:47 Pulse 61 07/12/23 08:00 Resp 16 07/12/23 08:00 BP 143/61 07/12/23 07:47 Pulse Ox 94 L 07/12/23 07:47 FiO2 Intake & Output 07/11/23 07/12/23 07/12/23 18:59 06:59 18:59 Intake Total 355 118 Balance 355 118 Intake: Oral 355 118 Other: Voiding Method Bedside Commode Bedpan Bedpan Diaper Diaper Diaper # Voids 1 1 # Bowel Movements 1 - Labs CBC & Chem 7: 07/06/23 14:36 07/07/23 07:45 Labs: Abnormal Lab Results - Last 24 Hours (Table) 07/11/23 Range/Units 20:42 POC Glucose (mg/dL) 153 H (70-110) mg/dL Assessment and Plan Plan: Assessment: 1. End-stage renal disease maintained on hemodialysis on Wednesday schedule. Patient will be changing over to Wednesday schedule upon discharge when she goes to rehab. 2. Generalized weakness with falls prior to admission. Working with physical therapy. 3. Chronic kidney disease mineral bone disease maintained on PhosLo. 4. Hypertension with chronic kidney disease. Stable. 5. Anemia of chronic kidney disease. Iron deficiency noted. 6. Hypophosphatemia from PhosLo. Replaced. Phosphorus level 5.1 today. PhosLo on hold. Plan: Hemodialysis today and will maintain on Wednesday schedule. Maintain IV iron.
[2023-07-12 11:27] LABS: BUN/Creat Ratio 9.48 Ratio (12.00-20.00); Blood Urea Nitrogen 61.6 mg/dL (9.0-27.0); Calcium 8.9 mg/dL (8.7-10.3); Carbon Dioxide 22.2 mmol/L (21.6-31.8); Chloride 94 mmol/L (96-109); Glucose 114 mg/dL (70-110); Magnesium 1.7 mg/dL (1.5-2.4); Potassium 4.7 mmol/L (3.5-5.5); Sodium 133 mmol/L (135-145)
[2023-07-12 12:20] LABS: Basophils # (A) 0.02 X 10*3/uL (0.00-0.10); Basophils % (A) 0.3 %; Eosinophils # (A) 0.11 X 10*3/uL (0.04-0.35); Eosinophils % (A) 1.7 %; HCT 30.2 % (37.2-46.3); Lymphocytes # (A) 0.73 X 10*3/uL (0.90-5.00); Lymphocytes % (A) 11.4 %; MCH 28.4 pg (27.0-32.0); MCHC 33.1 g/dL (32.0-37.0); MCV 85.8 FL (80.0-97.0); Mean Platelet Volume 10.2 FL (9.5-12.2); Monocytes # (A) 0.73 X 10*3/uL (0.20-1.00); Monocytes % (A) 11.4 %; NRBC Per 100 WBC 0 X 10*3/uL (0.00-0.01); Neutrophils # (A) 4.82 X 10*3/uL (1.80-7.70); Neutrophils % (A) 74.9 %; Platelet Count 152 X 10*3/uL (140-440); RBC 3.52 X 10*6/uL (4.10-5.20); RDW 14.5 % (11.5-14.5); WBC 6.43 X 10*3/uL (4.50-10.00)
[2023-07-12 14:31] VITALS: TEMP 97.7
[2023-07-12] MEDS ORDERED: Magnesium Replacement Protocol 1 EACH MISC MISCELLANE PRN (14:45)
--- NOTE | 2023-07-12 14:48 | P.DS ---
Providers Date of admission: 07/06/23 17:21 Attending physician: García Espinoza Consults: 07/06/23 17:18 Consult Physician Routine Consulting Provider: Kenya Bocanegra Consult Reason/Comments: esrf on hd Do you want consulting provider notified?: Yes Primary care physician: Pa Arthur [facility] Course: Final Diagnosis -Generalized weakness: Secondary to chronic comorbidities and age related physic al debility -Possibility of syncope, possibly secondary to blood pressure medications, syncope ruled out [place] -End-stage renal renal disease hemodialysis dependent Wednesday will continue her usual dialysis. -Seizure history -CVA TIA in the past -Gait dysfunction, recurrent falls at home almost daily per daughter at home -Hyperlipidemia -Hypertension history -Sleep apnea uses CPAP machine at home -Iron Deficiency anemia Discharge Disposition Stable for discharge to [facility] for subacute rehab. Patient's chair time has been switched to Wednesday with a 615 chair time. Patient will continue to follow-up with nephrology closely on discharge. Recommending to repeat labs in 2 to 3 days with her next dialysis session on Wednesday. Heart has been decreased. PhosLo is on hold currently. Follow-up closely with her PCP Dr. Ruby Arthur in 1 to 2 days. Hospital Course 68-year-old female with end-stage renal disease, CVA, seizure history, hypertension, hyperlipidemia, sleep apnea was going home from dialysis and ended up falling patient is not sure if she lost consciousness she states she may have lost consciousness. Patient is maintained on hemodialysis Wednesday//Wednesday. Patient reports continued weakness and gait dysfunction and evaluated by physical therapy recommending rehab and patient and family are agreeable. 2D echo was done which showed a difficult study with normal LV systolic function with an EF of 60 to 65%, with a severely thickened mitral valve leaflets with mild mitral stenosis and regurgitation, aortic sclerosis with mild aortic stenosis and severe pulmonary hypertension. Patient is afebrile with no reports of chest pain and reporting some shortness of breath. Patient reports does not wear oxygen outpatient. Slightly volume overloaded. Was evaluated by nephrology this admission and continued on her home regimen of dialysis. She is now off of oxygen was requiring 2 L. Patient received IV iron while in the hospital secondary to the findings of iron deficiency anemia and her iron studies. She will continue on oral iron on discharge. She is not having any chest pain no shortness of breath no nausea vomiting or diarrhea she is alert x 3 and is anticipated to discharge to rehab today. Please see medication reconciliation for a list of current medications. Thank you for allowing us to participate in the care of this patient. The impression and plan of care has been dictated by Ann Day, Nurse Practitioner as directed. Dr. Alexis MD I have performed a history and physical examination and medical decision making of this patient, discussed the same with the dictator, and agree with the dictators assessment and plan as written, documented as a scribe. Based on total visit time, I have performed more than 50% of this visit. Patient Condition at Discharge: Fair Plan - Discharge Summary New Discharge Prescriptions: New Losartan [Cozaar] 50 mg PO DAILY tab Continue Aspirin EC [Ecotrin Low Dose] 81 mg PO DAILY Ferrous Sulfate [Iron] 325 mg PO BID Sucralfate [Carafate] 1 gm PO BID carvediloL [Coreg] 12.5 mg PO BID Bumetanide [BUMEX] 5 mg PO DAILY NIFEdipine [Procardia XL] 90 mg PO HS Albuterol Inhaler [Ventolin Hfa Inhaler] 1 - 2 puff INHALATION RT-Q6H PRN PRN Reason: Shortness Of Breath INSULIN LISPRO (HumaLOG) [humaLOG] See Protocol SQ ACHS PRN PRN Reason: CBG > 150 Atorvastatin [Lipitor] 20 mg PO HS Citalopram Hydrobromide [CeleXA] 20 mg PO DAILY Vit B Complx C/Folic Acid/Zinc [Renaplex Tablet] 1 tab PO TUTHSA Discontinued metOLazone [Zaroxolyn] 2.5 mg PO BID Losartan Potassium 100 mg PO DAILY Calcium Acetate [PhosLo] 667 mg PO W/SUPPER Discharge Medication List Aspirin EC [Ecotrin Low Dose] 81 mg PO DAILY 09/19/15 [History] Albuterol Inhaler [Ventolin Hfa Inhaler] 1 - 2 puff INHALATION RT-Q6H PRN 10/29/22 [History] Bumetanide [BUMEX] 5 mg PO DAILY 10/29/22 [History] Ferrous Sulfate [Iron] 325 mg PO BID 10/29/22 [History] INSULIN LISPRO (HumaLOG) [humaLOG] See Protocol SQ ACHS PRN 10/29/22 [History] NIFEdipine [Procardia XL] 90 mg PO HS 10/29/22 [History] Sucralfate [Carafate] 1 gm PO BID 10/29/22 [History] Atorvastatin [Lipitor] 20 mg PO HS 07/06/23 [History] Citalopram Hydrobromide [CeleXA] 20 mg PO DAILY 07/06/23 [History] Vit B Complx C/Folic Acid/Zinc [Renaplex Tablet] 1 tab PO TUTHSA 07/06/23 [History] carvediloL [Coreg] 12.5 mg PO BID 07/06/23 [History] Losartan [Cozaar] 50 mg PO DAILY tab 07/12/23 [Rx] Follow up Appointment(s)/Referral(s): [facility] Nara VAZQUEZ [NON-STAFF] - 07/14/23 6:00 am Pa Arthur DO [Primary Care Provider] - 1-2 days Uday Montalvo DO [STAFF PHYSICIAN] - 1 Week
[2023-07-12 16:51] VITALS: BP 163/72; PULSE 68
[2023-07-12] MEDS: MAGNESIUM SULFATE-D5W PMX 1 GM in DEXTROSE/WATER 1 100ML.BAG IVPB ONE (17:07)
== END 2023-07-12 18:30 ==
LOC: EC 12:58 → OBSVTOIN 17:21 → INTOOBSV 17:21 → 6NMEDSUR 17:21 → UNDODISIN 07-12 18:30
PROVIDERS: ADMIT Internal Medicine; ATTEND Internal Medicine
DX: R54 Age-related physical debility (principal); I12.0 Hypertensive chronic kidney disease with stage 5 chronic kidney disease or end stage renal disease; N18.6 End stage renal disease; I69.354 Hemiplegia and hemiparesis following cerebral infarction affecting left non-dominant side; I25.10 Atherosclerotic heart disease of native coronary artery without angina pectoris; E11.22 Type 2 diabetes mellitus with diabetic chronic kidney disease; E78.5 Hyperlipidemia, unspecified; G47.30 Sleep apnea, unspecified; R29.6 Repeated falls; N25.0 Renal osteodystrophy; D63.1 Anemia in chronic kidney disease; R26.9 Unspecified abnormalities of gait and mobility; E83.39 Other disorders of phosphorus metabolism; Z87.891 Personal history of nicotine dependence; Z99.2 Dependence on renal dialysis; Z79.82 Long term (current) use of aspirin; Z79.899 Other long term (current) drug therapy; Z79.4 Long term (current) use of insulin; Z88.0 Allergy status to penicillin; Z88.1 Allergy status to other antibiotic agents
CPT/HCPCS: 96365; 96366 ×4; 96367; 96372 ×5; 99285; 51798; 36415; 93005; 93306; 97530 ×2; 97162; 97166; 80053; 80048 ×2; 82728; 83540; 83550; 83605; 83735 ×2; 84100 ×2; 84484; 85025 ×2; 81001; 71046; 72125; 70450; G0378 ×7; J1644 ×5; J2916 ×4; J3475; 90935

== ENCOUNTER 2023-07-14 02:28 | Inpatient (IN) | payer MEDICARE, OTHER ==
--- NOTE | 2023-07-14 03:12 | ED ---
SOB HPI - General Chief Complaint: Shortness of Breath Stated Complaint: LOUISE Time Seen by Provider: 07/14/23 02:31 Source: EMS, RN notes reviewed, old records reviewed, Caregiver Mode of arrival: EMS Limitations: no limitations - History of Present Illness Initial Comments: This is a 68-year-old male to the ER for evaluation of severe shortness of breat h weakness and hypoxia. Persistently low oxygen levels for extended-care facility and sent to ER for evaluation regarding hypoxia MD Complaint: shortness of breath, cough, chest pain, "asthma attack", anxiety -: days(s) Severity: severe Severity scale (1-10): 10 Improves With: nothing Worsens With: nothing Known History Of: COPD, asthma, congestive heart failure Context: recent URI, anxiety, recent illness Associated Symptoms: chest pain, pain with inspiration, cough, sputum production, orthopnea Treatments Prior to Arrival: oxygen - Related Data Home Medications Medication Instructions Recorded Confirmed Aspirin EC [Ecotrin Low Dose] 81 mg PO DAILY@89909/19/15 07/14/23 Albuterol Inhaler [Ventolin Hfa 2 puff INHALATION RT-Q6H PRN 10/29/22 07/14/23 Inhaler] Ferrous Sulfate [Iron] 325 mg PO BID@0900,209910/29/22 07/14/23 INSULIN LISPRO (HumaLOG) [humaLOG] See Protocol SQ ACHS 10/29/22 07/14/23 NIFEdipine [Procardia XL] 90 mg PO HS@209910/29/22 07/14/23 Sucralfate [Carafate] 1 gm PO BID@0900,209910/29/22 07/14/23 Atorvastatin [Lipitor] 20 mg PO HS@209907/06/23 07/14/23 Citalopram Hydrobromide [CeleXA] 20 mg PO DAILY@89907/06/23 07/14/23 Vit B Complx C/Folic Acid/Zinc 1 tab PO MOWEFR@89907/06/23 07/14/23 [Renaplex Tablet] carvediloL [Coreg] 12.5 mg PO BID@0900,209907/06/23 07/14/23 Losartan [Cozaar] 50 mg PO DAILY@89907/14/23 07/14/23 Previous Rx's Medication Instructions Recorded Calcium Acetate [PhosLo] 667 mg PO BID-W/MEALS tab 07/22/23 Ipratropium-Albuterol Nebulize 3 ml INHALATION RT-QID PRN each 07/22/23 [Duoneb 0.5 mg-3 mg/3 ml Soln] Levofloxacin [Levaquin] 250 mg PO Q48H 7 Days #3 tab 07/22/23 Melatonin 6 mg PO HS PRN tab 07/22/23 Torsemide [Demadex] 40 mg PO DAILY tab 07/22/23 predniSONE 10 mg PO DIRECTED #30 tab 07/22/23 Allergies Allergy/AdvReac Type Severity Reaction Status Date / Time captopril Allergy Cough Verified 07/14/23 07:24 cephalexin monohydrate Allergy Rash/Hives Verified 07/14/23 07:24 [From Keflex] Penicillins Allergy Rash/Hives Verified 07/14/23 07:24 Review of Systems ROS Statement: Those systems with pertinent positive or pertinent negative responses have been documented in the HPI. ROS Other: All systems not noted in ROS Statement are negative. Past Medical History Past Medical History: Coronary Artery Disease (CAD), CVA/TIA, Diabetes Mellitus, Dialysis, Hyperlipidemia, Hypertension, Osteoarthritis (OA), Renal Disease, Sleep Apnea/CPAP/BIPAP Additional Past Medical History / Comment(s): varicose veins (removed)., stroke X3-left side weaker uses a walker and w/c,- states she usually needs assistance with ambulation., TIA's, no CPAP used, hiatal hernia, ESRD - hemodialysis , , . with fistula left forearm., recent removal of peritoneal dialysis catheter., urinates freq small amounts, hx bleeding ulcer., History of Any Multi-Drug Resistant Organisms: None Reported Past Surgical History: Breast Surgery, Heart Catheterization, Orthopedic Surgery Additional Past Surgical History / Comment(s): Bilat Carotid Endarterectomy, lumpectomy Rt breast, CTR bilateral wrists, pilonidal cyst removal, varicose vein removal, bilateral cataracts removed, Fistula left wrist surgery 2019; Fis sharifa revision 05/30/20., peritoneal dialysis catheter and removal Past Anesthesia/Blood Transfusion Reactions: Previous Problems w/ Anesthesia, Motion Sickness Additional Past Anesthesia/Blood Transfusion Reaction / Comment(s): Had trouble waking up after surgery. no problems with prior blood transfusion Past Psychological History: No Psychological Hx Reported Smoking Status: Former smoker Past Alcohol Use History: None Reported Additional Past Alcohol Use History / Comment(s): Quit smoking 2010 est, started smoking as a teen, 1 PPD. Past Drug Use History: None Reported - Past Family History Mother Family Medical History: Cancer Additional Family Medical History / Comment(s): breast cancer w/ mets Father Family Medical History: Cancer Additional Family Medical History / Comment(s): esophageal cancer Brother(s) Family Medical History: Cancer Additional Family Medical History / Comment(s): colon cancer, esophageal cancer General Exam Limitations: no limitations General appearance: alert, anxious, lethargic, in distress Head exam: Present: atraumatic, normocephalic, normal inspection Eye exam: Present: normal appearance, PERRL, EOMI. Absent: scleral icterus, conjunctival injection, periorbital swelling ENT exam: Present: normal exam, mucous membranes moist Neck exam: Present: normal inspection. Absent: tenderness, meningismus, lymphadenopathy Respiratory exam: Present: respiratory distress, wheezes, accessory muscle use, decreased breath sounds, prolonged expiratory. Absent: rales, rhonchi, stridor Cardiovascular Exam: Present: regular rate, normal rhythm, normal heart sounds. Absent: systolic murmur, diastolic murmur, rubs, gallop, clicks GI/Abdominal exam: Present: soft, normal bowel sounds. Absent: distended, tenderness, guarding, rebound, rigid Extremities exam: Present: normal inspection, full ROM, normal capillary refill. Absent: tenderness, pedal edema, joint swelling, calf tenderness Back exam: Present: normal inspection Neurological exam: Present: alert, oriented X3, CN II-XII intact Psychiatric exam: Present: normal affect, normal mood Skin exam: Present: warm, dry, intact, normal color. Absent: rash Course Vital Signs 07/14/23 07/14/23 07/14/23 02:33 04:03 06:02 Temperature 97.4 F L Pulse Rate 54 L 51 L 60 Pulse Rate [ Right Supine Brachial] Respiratory 18 18 17 Rate Blood Pressure 105/53 103/61 133/52 Blood Pressure [Right Arm Supine] O2 Sat by Pulse 92 L 96 97 Oximetry 07/14/23 07/14/23 07/14/23 09:00 11:13 11:39 Temperature Pulse Rate 64 68 64 Pulse Rate [ Right Supine Brachial] Respiratory 24 18 Rate Blood Pressure 131/57 141/66 Blood Pressure [Right Arm Supine] O2 Sat by Pulse 99 96 94 L Oximetry 07/14/23 07/14/23 07/14/23 11:49 13:27 15:17 Temperature Pulse Rate 61 66 61 Pulse Rate [ Right Supine Brachial] Respiratory 24 Rate Blood Pressure 162/72 Blood Pressure [Right Arm Supine] O2 Sat by Pulse 98 Oximetry 07/14/23 07/14/23 07/14/23 15:27 16:06 18:10 Temperature 97.6 F Pulse Rate 57 L 66 56 L Pulse Rate [ Right Supine Brachial] Respiratory 20 20 Rate Blood Pressure 141/69 124/59 Blood Pressure [Right Arm Supine] O2 Sat by Pulse 94 L 90 L 94 L Oximetry 07/14/23 07/14/23 07/14/23 19:45 20:11 20:22 Temperature 98.5 F Pulse Rate 56 L 57 L 55 L Pulse Rate [ Right Supine Brachial] Respiratory 18 Rate Blood Pressure 121/60 Blood Pressure [Right Arm Supine] O2 Sat by Pulse 90 L Oximetry 07/14/23 07/14/23 07/14/23 21:01 21:42 21:47 Temperature 98.5 F Pulse Rate 54 L 57 L Pulse Rate [ 60 Right Supine Brachial] Respiratory 21 18 23 Rate Blood Pressure 105/58 119/51 Blood Pressure 123/55 [Right Arm Supine] O2 Sat by Pulse 93 L 95 90 L Oximetry 07/14/23 07/14/23 07/14/23 22:30 23:00 23:30 Temperature Pulse Rate 58 L 58 L 56 L Pulse Rate [ Right Supine Brachial] Respiratory 23 22 20 Rate Blood Pressure 109/57 118/57 135/57 Blood Pressure [Right Arm Supine] O2 Sat by Pulse 93 L 94 L 96 Oximetry 07/15/23 07/15/23 07/15/23 00:00 00:30 01:00 Temperature Pulse Rate 56 L 56 L 58 L Pulse Rate [ Right Supine Brachial] Respiratory 22 19 22 Rate Blood Pressure 129/59 117/53 118/56 Blood Pressure [Right Arm Supine] O2 Sat by Pulse 89 L 95 95 Oximetry 07/15/23 07/15/23 07/15/23 02:07 02:23 02:51 Temperature Pulse Rate 58 L 60 57 L Pulse Rate [ Right Supine Brachial] Respiratory 17 15 15 Rate Blood Pressure 123/61 Blood Pressure [Right Arm Supine] O2 Sat by Pulse 96 91 L 96 Oximetry 07/15/23 07/15/23 07/15/23 04:00 06:00 07:39 Temperature Pulse Rate 57 L 54 L 63 Pulse Rate [ Right Supine Brachial] Respiratory 16 16 Rate Blood Pressure 146/59 131/56 Blood Pressure [Right Arm Supine] O2 Sat by Pulse 99 96 97 Oximetry 07/15/23 07/15/23 07/15/23 07:53 09:15 11:01 Temperature 97.8 F Pulse Rate 65 58 L 58 L Pulse Rate [ Right Supine Brachial] Respiratory 20 22 Rate Blood Pressure 126/73 130/57 Blood Pressure [Right Arm Supine] O2 Sat by Pulse 99 99 Oximetry 07/15/23 07/15/23 07/15/23 11:25 12:03 13:01 Temperature Pulse Rate 56 L 53 L 52 L Pulse Rate [ Right Supine Brachial] Respiratory 19 17 Rate Blood Pressure 130/59 105/54 Blood Pressure [Right Arm Supine] O2 Sat by Pulse 100 95 Oximetry 07/15/23 07/15/23 07/15/23 14:09 14:57 15:03 Temperature 98.3 F Pulse Rate 51 L 52 L Pulse Rate [ 54 L Right Supine Brachial] Respiratory 20 19 19 Rate Blood Pressure 113/58 111/53 Blood Pressure 108/54 [Right Arm Supine] O2 Sat by Pulse 96 100 98 Oximetry 07/15/23 07/15/23 07/15/23 15:26 15:36 16:20 Temperature 97.7 F Pulse Rate 51 L 53 L 48 L Pulse Rate [ Right Supine Brachial] Respiratory 17 Rate Blood Pressure 101/47 Blood Pressure [Right Arm Supine] O2 Sat by Pulse 100 Oximetry 07/15/23 07/15/23 07/15/23 17:15 18:15 19:25 Temperature 98.5 F Pulse Rate 48 L 56 L 51 L Pulse Rate [ Right Supine Brachial] Respiratory 18 20 Rate Blood Pressure 105/44 105/49 Blood Pressure [Right Arm Supine] O2 Sat by Pulse 99 96 Oximetry 07/15/23 07/15/23 19:34 20:53 Temperature Pulse Rate 52 L 55 L Pulse Rate [ Right Supine Brachial] Respiratory 19 Rate Blood Pressure 110/51 Blood Pressure [Right Arm Supine] O2 Sat by Pulse 97 Oximetry - Reevaluation(s) Reevaluation #1: 07/14/23 03:46 Records reviewed Reevaluation #2: 07/14/23 03:46 Patient symptoms unchanged 07/14/23 03:46 Oxygen continues to remain significantly low even on supplemental O2 Reevaluation #3: 07/14/23 06:06 Patient informed of results questions answered Reevaluation #4: Was pt. sent in by a medical professional or institution (, [facility], urgent care, hospital, or penitentiary...) When possible be specific @ -no Did you speak to anyone other than the patient for history (EMS, parent, family, police, friend...)? What history was obtained from this source @ -no Did you review nursing and triage notes (agree or disagree)? Why? @ -agree Are old charts reviewed (outside hosp., previous admission, EMS record, old EKG, old radiological studies, urgent care reports/EKG's, penitentiary records)? Report findings @ -yes Differential Diagnosis (chest pain, altered mental status, abdominal pain women, abdominal pain men, vaginal bleeding, weakness, fever, dyspnea, syncope, headache, dizziness, GI bleed, back pain, seizure, CVA, palpatations, mental health, musculoskeletal)? @ -prior EKG interpreted by me (3pts min.). @ -yes X-rays interpreted by me (1pt min.). @ -yes n significant for CHF CT interpreted by me (1pt min.). @ -no U/S interpreted by me (1pt. min.). @ -no What testing was considered but not performed or refused? (CT, X-rays, U/S, labs)? Why? @ -none What meds were considered but not given or refused? Why? @ -none Did you discuss the management of the patient with other professionals (professionals i.e. , [facility], [facility], lab, RT, psych nurse, outreach and education social worker, tight cooper, teacher, associate loan officer, case checker)? Give summary @ -no Was smoking cessation discussed for >3mins.? @ -no Was critical care preformed (if so, how long)? @ -yes31 Were there social determinants of health that impacted care today? How? (Homelessness, low income, unemployed, alcoholism, drug addiction, transportation, low edu. Level, literacy, decrease access to med. care, senior care, rehab)? @ -none Was there de-escalation of care discussed even if they declined (Discuss DNR or withdrawal of care, Hospice)? DNR status @ -no What co-morbidities impacted this encounter? (DM, HTN, Smoking, COPD, CAD, Cancer, CVA, ARF, Chemo, Hep., AIDS, mental health diagnosis, sleep apnea, morbid obesity)? @ -none Was patient admitted / discharged? Hospital course, mention meds given and route, prescriptions, significant lab abnormalities, going to OR and other pertinent info. @ - 68 female to the ER for evaluation of severely low oxygen levels. Patient does have fluid overload will consult for cardiology's well as pulmonology for hypoxia and nephrology for renal failure Admitted, hypoxia, renal failure Undiagnosed new problem with uncertain prognosis? @ -no Drug Therapy requiring intensive monitoring for toxicity (Heparin, Nitro, In sulin, Cardizem)? @ -no Were any procedures done? @ -no Diagnosis/symptom? @ -CHF Acute, or Chronic, or Acute on Chronic? @ -Acute Uncomplicated (without systemic symptoms) or Complicated (systemic symptoms)? @ -Complicated Side effects of treatment? @ -no Exacerbation, Progression, or Severe Exacerbation? @ -exacerbation Poses a threat to life or bodily function? How? (Chest pain, [place], [place], pneumonia, PE, COPD, DKA, ARF, appy, cholecystitis, CVA, Diverticulitis, Homicidal, Suicidal, threat to staff... and all critical care pts) @ -yes with significant respiratory failure CHF Reevaluation #5: Differential Dyspnea: Coronary syndrome, arrhythmia, tamponade, asthma, COPD, pulmonary embolism, pneumonia, pneumothorax, pulmonary effusion, anaphylaxis, diabetic ketoacidosis, flailed chest, pulmonary contusion, diaphragmatic rupture, anemia, neuromuscular, this is not meant to be an all-inclusive list. - Consultations Consultation #1: Spoke with [facility] who agrees to admit this patient Medical Decision Making - Medical Decision Making 68 female to the ER for evaluation of severely low oxygen levels. Patient does have fluid overload will consult for cardiology's well as pulmonology for hypoxia and nephrology for renal failure - Lab Data Result diagrams: 07/19/23 08:27 07/22/23 15:17 Lab Results 07/14/23 07/14/23 07/14/23 Range/Units 02:35 02:35 02:35 WBC 8.9 (3.8-10.6) k/uL RBC 3.01 L (3.80-5.40) m/uL Hgb 9.5 L (11.4-16.0) gm/dL Hct 27.7 L (34.0-46.0) % MCV 92.0 (80.0-100.0) fL MCH 31.6 (25.0-35.0) pg MCHC 34.3 (31.0-37.0) g/dL RDW 22.3 H (11.5-15.5) % Plt Count 185 (150-450) k/uL MPV 8.7 Neutrophils % 80 % Lymphocytes % 8 % Monocytes % 7 % Eosinophils % 2 % Basophils % 1 % Neutrophils # 7.1 (1.3-7.7) k/uL Lymphocytes # 0.7 L (1.0-4.8) k/uL Monocytes # 0.6 (0-1.0) k/uL Eosinophils # 0.2 (0-0.7) k/uL Basophils # 0.0 (0-0.2) k/uL Anisocytosis Moderate PT 10.2 (10.0-12.5) sec INR 0.9 (<1.2) APTT 24.9 (22.0-30.0) sec D-Dimer (<0.60) mg/L FEU Sodium 134 L (137-145) mmol/L Potassium 4.8 (3.5-5.1) mmol/L Chloride 96 L (98-107) mmol/L Carbon Dioxide 25 (22-30) mmol/L Anion Gap 13 mmol/L BUN 62 H (7-17) mg/dL Creatinine 5.58 H (0.52-1.04) mg/dL Est GFR (CKD-EPI)AfAm 8 (>60 ml/min/1.73 sqM) Est GFR (CKD-EPI)NonAf 7 (>60 ml/min/1.73 sqM) Glucose 144 H (74-99) mg/dL Calcium 8.2 L (8.4-10.2) mg/dL Magnesium 1.8 (1.6-2.3) mg/dL Iron (50-170) UG/DL TIBC (228-460) UG/DL % Saturation (12.00-45.00) Transferrin (204.0-354.0) mg/dL Ferritin (10.0-291.0) ng/mL Total Bilirubin 0.6 (0.2-1.3) mg/dL AST 25 (14-36) U/L ALT 23 (4-34) U/L Alkaline Phosphatase 120 (38-126) U/L Troponin I (0.000-0.034) ng/mL NT-Pro-B Natriuret Pep 8000 pg/mL Total Protein 5.9 L (6.3-8.2) g/dL Albumin 3.2 L (3.5-5.0) g/dL Influenza Type A (PCR) (Not Detectd) Influenza Type B (PCR) (Not Detectd) RSV (PCR) (Not Detectd) SARS-CoV-2 (PCR) (Not Detectd) 07/14/23 07/14/23 07/14/23 Range/Units 02:35 02:35 02:35 WBC (3.8-10.6) k/uL RBC (3.80-5.40) m/uL Hgb (11.4-16.0) gm/dL Hct (34.0-46.0) % MCV (80.0-100.0) fL MCH (25.0-35.0) pg MCHC (31.0-37.0) g/dL RDW (11.5-15.5) % Plt Count (150-450) k/uL MPV Neutrophils % % Lymphocytes % % Monocytes % % Eosinophils % % Basophils % % Neutrophils # (1.3-7.7) k/uL Lymphocytes # (1.0-4.8) k/uL Monocytes # (0-1.0) k/uL Eosinophils # (0-0.7) k/uL Basophils # (0-0.2) k/uL Anisocytosis PT (10.0-12.5) sec INR (<1.2) APTT (22.0-30.0) sec D-Dimer 1.74 H (<0.60) mg/L FEU Sodium (137-145) mmol/L Potassium (3.5-5.1) mmol/L Chloride (98-107) mmol/L Carbon Dioxide (22-30) mmol/L Anion Gap mmol/L BUN (7-17) mg/dL Creatinine (0.52-1.04) mg/dL Est GFR (CKD-EPI)AfAm (>60 ml/min/1.73 sqM) Est GFR (CKD-EPI)NonAf (>60 ml/min/1.73 sqM) Glucose (74-99) mg/dL Calcium (8.4-10.2) mg/dL Magnesium (1.6-2.3) mg/dL Iron 60 (50-170) UG/DL TIBC 216 L (228-460) UG/DL % Saturation 27.78 (12.00-45.00) Transferrin 154.0 L (204.0-354.0) mg/dL Ferritin 1646.0 H (10.0-291.0) ng/mL Total Bilirubin (0.2-1.3) mg/dL AST (14-36) U/L ALT (4-34) U/L Alkaline Phosphatase (38-126) U/L Troponin I <0.012 (0.000-0.034) ng/mL NT-Pro-B Natriuret Pep pg/mL Total Protein (6.3-8.2) g/dL Albumin (3.5-5.0) g/dL Influenza Type A (PCR) (Not Detectd) Influenza Type B (PCR) (Not Detectd) RSV (PCR) (Not Detectd) SARS-CoV-2 (PCR) (Not Detectd) 07/14/23 Range/Units 03:30 WBC (3.8-10.6) k/uL RBC (3.80-5.40) m/uL Hgb (11.4-16.0) gm/dL Hct (34.0-46.0) % MCV (80.0-100.0) fL MCH (25.0-35.0) pg MCHC (31.0-37.0) g/dL RDW (11.5-15.5) % Plt Count (150-450) k/uL MPV Neutrophils % % Lymphocytes % % Monocytes % % Eosinophils % % Basophils % % Neutrophils # (1.3-7.7) k/uL Lymphocytes # (1.0-4.8) k/uL Monocytes # (0-1.0) k/uL Eosinophils # (0-0.7) k/uL Basophils # (0-0.2) k/uL Anisocytosis PT (10.0-12.5) sec INR (<1.2) APTT (22.0-30.0) sec D-Dimer (<0.60) mg/L FEU Sodium (137-145) mmol/L Potassium (3.5-5.1) mmol/L Chloride (98-107) mmol/L Carbon Dioxide (22-30) mmol/L Anion Gap mmol/L BUN (7-17) mg/dL Creatinine (0.52-1.04) mg/dL Est GFR (CKD-EPI)AfAm (>60 ml/min/1.73 sqM) Est GFR (CKD-EPI)NonAf (>60 ml/min/1.73 sqM) Glucose (74-99) mg/dL Calcium (8.4-10.2) mg/dL Magnesium (1.6-2.3) mg/dL Iron (50-170) UG/DL TIBC (228-460) UG/DL % Saturation (12.00-45.00) Transferrin (204.0-354.0) mg/dL Ferritin (10.0-291.0) ng/mL Total Bilirubin (0.2-1.3) mg/dL AST (14-36) U/L ALT (4-34) U/L Alkaline Phosphatase (38-126) U/L Troponin I (0.000-0.034) ng/mL NT-Pro-B Natriuret Pep pg/mL Total Protein (6.3-8.2) g/dL Albumin (3.5-5.0) g/dL Influenza Type A (PCR) Not Detected (Not Detectd) Influenza Type B (PCR) Not Detected (Not Detectd) RSV (PCR) Not Detected (Not Detectd) SARS-CoV-2 (PCR) Not Detected (Not Detectd) - EKG Data -: EKG Interpreted by Me (EKG is sinus bradycardia 51 QRS 101 QTc 463) - Radiology Data Radiology results: report reviewed (Chest x-ray shows CHF), image reviewed Critical Care Time Critical Care Time: Yes Total Critical Care Time: 31 Disposition Clinical Impression: ISABEL (acute kidney injury), Weakness, Renal failure, Bradycardia, Hypoxia Disposition: ADMITTED IP TO THIS HOSP Condition: Fair Is patient prescribed a controlled substance at d/c from ED?: No Time of Disposition: 06:00
[2023-07-14 03:18] LABS: Anisocytosis Moderate; Basophils % (A) 1 %; Eosinophils # (A) 0.2 k/uL (0-0.7); Eosinophils % (A) 2 %; HCT 27.7 % (34.0-46.0); HGB 9.5 gm/dL (11.4-16.0); Lymphocytes # (A) 0.7 k/uL (1.0-4.8); Lymphocytes % (A) 8 %; MCH 31.6 pg (25.0-35.0); MCHC 34.3 g/dL (31.0-37.0); Mean Platelet Volume 8.7; Monocytes # (A) 0.6 k/uL (0-1.0); Monocytes % (A) 7 %; Neutrophils # (A) 7.1 k/uL (1.3-7.7); Neutrophils % (A) 80 %; Platelet Count 185 k/uL (150-450); RBC 3.01 m/uL (3.80-5.40); RDW 22.3 % (11.5-15.5); WBC 8.9 k/uL (3.8-10.6)
[2023-07-14 03:22] LABS: ALT 23 U/L (4-34); AST 25 U/L (14-36); African American GFR (CKD) 8 (>60 ml/min/1.73 sqM); Albumin 3.2 g/dL (3.5-5.0); Alkaline Phosphatase 120 U/L (38-126); Anion Gap 13 mmol/L; Blood Urea Nitrogen 62 mg/dL (7-17); Calcium 8.2 mg/dL (8.4-10.2); Carbon Dioxide 25 mmol/L (22-30); Chloride 96 mmol/L (98-107); Glucose 144 mg/dL (74-99); Magnesium 1.8 mg/dL (1.6-2.3); Non-African American GFR(CKD) 7 (>60 ml/min/1.73 sqM); Potassium 4.8 mmol/L (3.5-5.1); Sodium 134 mmol/L (137-145); Total Bilirubin 0.6 mg/dL (0.2-1.3); Total Protein 5.9 g/dL (6.3-8.2)
[2023-07-14 03:26] LABS: INR 0.9 (<1.2); Partial Thromboplastin Time 24.9 sec (22.0-30.0); Prothrombin Time 10.2 sec (10.0-12.5)
[2023-07-14 03:31] LABS: NT-Pro-B-Type Natriuretic Pept 8000 pg/mL
[2023-07-14] MEDS ORDERED: MORPHINE SULFATE 4 MG/ML SYRINGE IV PRN (05:59)
[2023-07-14] MEDS ORDERED: NALOXONE 0.4 MG/ML 1 ML VIAL IV PRN (05:59)
[2023-07-14] MEDS ORDERED: ONDANSETRON 4 MG/2 ML VIAL IVP PRN (05:59)
--- NOTE | 2023-07-14 07:29 | XR ---
EXAMINATION TYPE: XR chest 1V portable DATE OF EXAM: 07/14/2023 Comparison: 07/06/2023 Clinical History: 68-year-old female sob Findings: Heart is normal in size. Mild interstitial density. Mild hyperinflation. Patient rotated towards the left altering the normal cardiac and mediastinal contours. No miki consolidation or pleural effusion . Impression: Some interval increase in the interstitium, consider bronchitis/asthma or mild pulmonary vascular con gestion. Rotated exam.
[2023-07-14] MEDS: BUMETANIDE 0.25 MG/ML 10 ML VIAL IV SCH (09:05)
[2023-07-14] MEDS: methylPREDNISolone SOD SUCCI 40 MG/ML 1 ML VIAL IV SCH (09:07)
[2023-07-14] MEDS: ENOXAPARIN 80 MG/0.8 ML SYRINGE SQ STA (09:08)
--- NOTE | 2023-07-14 11:20 | P.NPCON ---
History of Present Illness - Reason for Consult end stage renal disease - History of Present Illness Reason for consultation: End-stage renal disease History of present illness: Patient is a 68-year-old female seen in renal consultation for end-stage renal disease. Patient was seen and examined in the emergency room. Patient is now maintained on hemodialysis on a Wednesday schedule. Patient was recently admitted at this facility and was discharged to rehab facility due to weakness. Patient was sent to the hospital due to shortness of breath and hypoxia. Patient is currently not a reliable historian and is on a nonrebreather. Patient has history of diastolic CHF with severe pulmonary hypertension. Chest x-ray showed vascular congestion with consideration of bronchitis and asthma. Patient is scheduled for hemodialysis today. She is also receiving IV Bumex. Makes little urine. Hemodynamically stable. No fever on admission. Vital signs are stable. General: Resting in bed. HEENT: Head exam is unremarkable. On nonrebreather. LUNGS: Scattered rhonchi. HEART: Rate and Rhythm are regular. ABDOMEN: Nontender. EXTREMITITES: No edema. Past Medical History Past Medical History: Coronary Artery Disease (CAD), CVA/TIA, Diabetes Mellitus, Dialysis, Hyperlipidemia, Hypertension, Osteoarthritis (OA), Renal Disease, Sleep Apnea/CPAP/BIPAP Additional Past Medical History / Comment(s): varicose veins (removed)., stroke X3-left side weaker uses a walker and w/c,- states she usually needs assistance with ambulation., TIA's, no CPAP used, hiatal hernia, ESRD - hemodialysis , , . with fistula left forearm., recent removal of peritoneal dialysis catheter., urinates freq small amounts, hx bleeding ulcer., History of Any Multi-Drug Resistant Organisms: None Reported Past Surgical History: Breast Surgery, Heart Catheterization, Orthopedic Surgery Additional Past Surgical History / Comment(s): Bilat Carotid Endarterectomy, l umpectomy Rt breast, CTR bilateral wrists, pilonidal cyst removal, varicose vein removal, bilateral cataracts removed, Fistula left wrist surgery 2019; Fistula revision 05/30/20., peritoneal dialysis catheter and removal Past Anesthesia/Blood Transfusion Reactions: Previous Problems w/ Anesthesia, Motion Sickness Additional Past Anesthesia/Blood Transfusion Reaction / Comment(s): Had trouble waking up after surgery. no problems with prior blood transfusion Past Psychological History: No Psychological Hx Reported Smoking Status: Former smoker Past Alcohol Use History: None Reported Additional Past Alcohol Use History / Comment(s): Quit smoking 2010 est, started smoking as a teen, 1 PPD. Past Drug Use History: None Reported - Past Family History Mother Family Medical History: Cancer Additional Family Medical History / Comment(s): breast cancer w/ mets Father Family Medical History: Cancer Additional Family Medical History / Comment(s): esophageal cancer Brother(s) Family Medical History: Cancer Additional Family Medical History / Comment(s): colon cancer, esophageal cancer Medications and Allergies Home Medications Medication Instructions Recorded Confirmed Type Aspirin EC [Ecotrin Low Dose] 81 mg PO DAILY@09/18/07/14/23 History Albuterol Inhaler [Ventolin Hfa 2 puff INHALATION RT-Q6H PRN 10/29/22 07/14/23 History Inhaler] Bumetanide [BUMEX] 5 mg PO DAILY@89910/29/22 07/14/23 History Ferrous Sulfate [Iron] 325 mg PO BID@899,209910/29/22 07/14/23 History INSULIN LISPRO (HumaLOG) [humaLOG] See Protocol SQ ACHS 10/29/22 07/14/23 Histor y NIFEdipine [Procardia XL] 90 mg PO HS@209910/29/22 07/14/23 History Sucralfate [Carafate] 1 gm PO BID@0900,209910/29/22 07/14/23 History Atorvastatin [Lipitor] 20 mg PO HS@209907/06/23 07/14/23 History Citalopram Hydrobromide [CeleXA] 20 mg PO DAILY@89907/06/23 07/14/23 History Vit B Complx C/Folic Acid/Zinc 1 tab PO MOWEFR@89907/06/23 07/14/23 History [Renaplex Tablet] carvediloL [Coreg] 12.5 mg PO BID@899,209907/06/23 07/14/23 History Losartan [Cozaar] 50 mg PO DAILY@89907/14/23 07/14/23 History Allergies Allergy/AdvReac Type Severity Reaction Status Date / Time captopril Allergy Cough Verified 07/14/23 07:24 cephalexin monohydrate Allergy Rash/Hives Verified 07/14/23 07:24 [From Keflex] Penicillins Allergy Rash/Hives Verified 07/14/23 07:24 Physical Exam Vitals: Vital Signs Temp Pulse Resp BP Pulse Ox 07/14/23 09:00 64 24 131/57 99 07/14/23 06:02 60 17 133/52 97 07/14/23 04:03 51 L 18 103/61 96 07/14/23 02:33 97.4 F L 54 L 18 105/53 92 L Intake and Output 07/13/23 07/14/23 07/14/23 22:59 06:59 14:59 Other: Weight 68.039 kg Results - Lab Results Most recent lab results Calcium 8.2 mg/dL (8.4-10.2) L 07/14/23 02:35 Magnesium 1.8 mg/dL (1.6-2.3) 07/14/23 02:35 07/14/23 02:35 07/14/23 02:35 Assessment and Plan Plan: Assessment: 1. End-stage renal disease maintained on hemodialysis on Wednesday schedule. 2. Acute epoxy respiratory failure. 3. Volume overload. 4. COPD exacerbation. 5. Acute on chronic diastolic CHF with severe pulmonary hypertension. 6. Anemia of chronic kidney disease. Plan: Hemodialysis today. Challenge ultrafiltration. Check iron studies. Wean FiO2. Thank you for the consultation. I will continue to follow the patient with you during her hospital stay.
[2023-07-14] MEDS: IPRATROPIUM-ALBUTEROL 3 ML NEB INHALATION SCH (11:38)
--- NOTE | 2023-07-14 12:04 | P.CRDCN ---
History of Present Illness History of present illness: HISTORY OF PRESENT ILLNESS: This is a 68-year-old female with a past medical history significant for hypertension, hyperlipidemia, carotid artery stenosis status post bilateral carotid endarterectomy, CVA/TIA, end-stage renal disease on hemodialysis, and diabetes. Patient follows in the office with Dr. Mancuso. We have been asked to see the patient in consultation for congestive heart failure. Patient examined at the bedside in the emergency room. Patient was brought to the hospital from her ECF secondary to hypoxia. Patient is somewhat lethargic at the time of examination. Patient reports shortness of breath this morning. She is currently on a nonrebreather. She states that she has been compliant with her hemodialysis and has not missed any sessions. Patient reports that she does still make urine. She denies chest pain or pressure. Patient was found to be in congestive heart failure and was started on IV diuretics. According to cardiology office notes, the patient had a cardiac catheterization performed about 4 years ago at [facility] and that revealed relatively normal coronary arteries. DIAGNOSTICS: - EKG reveals sinus bradycardia with no signs of acute ischemia. - Chest xray some interval increase in the interstitium, consider bronchitis/asthma or mild pulmonary vascular congestion.. - Laboratory data: WBC 8.9. Hemoglobin 9.5. Platelet count 185. D-dimer 1.74. Sodium 134. Potassium 4.8. BUN 62. Creatinine 5.58. Magnesium 1.8. Troponi n negative x 1. proBNP 8000. - Current home cardiac medications include carvedilol 12.5 mg twice a day, nifedipine 90 mg at night, losartan 50 mg daily, Bumex 5 mg daily, Lipitor 20 mg at night, aspirin 81 mg daily. - Most recent echocardiogram obtained in July 2023 revealed ejection fraction 60 to 65%, severe pulmonary hypertension, mild mitral regurgitation, mild mitral stenosis, mild aortic stenosis -Patient underwent Lexiscan stress test in September 2021 which was negative for ischemia REVIEW OF SYSTEMS: At the time of my exam: CONSTITUTIONAL: Denies fever or chills. HEENT: Denies blurred vision, vision changes, or eye pain. Denies hemoptysis CARDIOVASCULAR: Denies chest pain. Denies orthopnea. Denies PND. Denies palpitations RESPIRATORY: Reports shortness of breath. GASTROINTESTINAL: Denies abdominal pain. Denies nausea or vomiting. HEMATOLOGIC: Denies bleeding disorders. GENITOURINARY: Denies any blood in urine. SKIN: Denies pruitis. Denies rash. PHYSICAL EXAM: VITAL SIGNS: Reviewed. GENERAL: Well-developed in no acute distress. Currently on a nonrebreather. HEENT: Head is normocephalic. Pupils are equal, round. Sclerae anicteric. Mucous membranes of the mouth are moist. Neck supple. LUNGS: Respirations even and unlabored. Lungs with bilateral expiratory wheezing and bibasilar crackles HEART: Regular rate and rhythm. S1 and S2 heard. ABDOMEN: Soft. Nondistended. Nontender. EXTREMITIES: Normal range of motion. No clubbing or cyanosis. Peripheral pulses intact. No lower extremity edema NEUROLOGIC: Awake and alert. ASSESSMENT: Shortness of breath Acute on chronic heart failure with preserved ejection fraction Severe pulmonary hypertension End-stage renal disease on hemodialysis, Wednesday Acute hypoxic respiratory failure, currently on a nonrebreather Acute COPD exacerbation Hypertension Hyperlipidemia Carotid artery stenosis status post bilateral carotid endarterectomy History of TIA/CVA PLAN: No need to repeat echocardiogram as this was performed earlier this month Resume home cardiac medications Continue IV Bumex 1 mg every 12 hours Daily weights, accurate intake and output, and monitoring of kidney function Patient with elevated D-dimer. VQ scan is currently pending Further recommendations pending patient course Nurse practitioner note has been reviewed by physician. Signing provider agrees with the documented findings, assessment, and plan of care documented by PERSONAL SECRETARY as a scribe. Past Medical History Past Medical History: Coronary Artery Disease (CAD), CVA/TIA, Diabetes Mellitus, Dialysis, Hyperlipidemia, Hypertension, Osteoarthritis (OA), Renal Disease, Sleep Apnea/CPAP/BIPAP Additional Past Medical History / Comment(s): varicose veins (removed)., stroke X3-left side weaker uses a walker and w/c,- states she usually needs assistance with ambulation., TIA's, no CPAP used, hiatal hernia, ESRD - hemodialysis , , . with fistula left forearm., recent removal of peritoneal dialysis catheter., urinates freq small amounts, hx bleeding ulcer., History of Any Multi-Drug Resistant Organisms: None Reported Past Surgical History: Breast Surgery, Heart Catheterization, Orthopedic Surgery Additional Past Surgical History / Comment(s): Bilat Carotid Endarterectomy, lumpectomy Rt breast, CTR bilateral wrists, pilonidal cyst removal, varicose vein removal, bilateral cataracts removed, Fistula left wrist surgery 2019; Fistula revision 05/30/20., peritoneal dialysis catheter and removal Past Anesthesia/Blood Transfusion Reactions: Previous Problems w/ Anesthesia, Motion Sickness Additional Past Anesthesia/Blood Transfusion Reaction / Comment(s): Had trouble waking up after surgery. no problems with prior blood transfusion Past Psychological History: No Psychological Hx Reported Smoking Status: Former smoker Past Alcohol Use History: None Reported Additional Past Alcohol Use History / Comment(s): Quit smoking 2009 est, started smoking as a teen, 1 PPD. Past Drug Use History: None Reported - Past Family History Mother Family Medical History: Cancer Additional Family Medical History / Comment(s): breast cancer w/ mets Father Family Medical History: Cancer Additional Family Medical History / Comment(s): esophageal cancer Brother(s) Family Medical History: Cancer Additional Family Medical History / Comment(s): colon cancer, esophageal cancer Medications and Allergies Home Medications Medication Instructions Recorded Confirmed Type Aspirin EC [Ecotrin Low Dose] 81 mg PO DAILY@89909/19/15 07/14/23 History Albuterol Inhaler [Ventolin Hfa 2 puff INHALATION RT-Q6H PRN 10/29/22 07/14/23 History Inhaler] Bumetanide [BUMEX] 5 mg PO DAILY@89910/29/22 07/14/23 History Ferrous Sulfate [Iron] 325 mg PO BID@899,209910/29/22 07/14/23 History INSULIN LISPRO (HumaLOG) [humaLOG] See Protocol SQ ACHS 10/29/22 07/14/23 History NIFEdipine [Procardia XL] 90 mg PO HS@209910/29/22 07/14/23 History Sucralfate [Carafate] 1 gm PO BID@899,209910/29/22 07/14/23 History Atorvastatin [Lipitor] 20 mg PO HS@209907/06/23 07/14/23 History Citalopram Hydrobromide [CeleXA] 20 mg PO DAILY@89907/06/23 07/14/23 History Vit B Complx C/Folic Acid/Zinc 1 tab PO MOWEFR@89907/06/23 07/14/23 History [Renaplex Tablet] carvediloL [Coreg] 12.5 mg PO BID@0900,2100 07/06/23 07/14/23 History Losartan [Cozaar] 50 mg PO DAILY@0900 07/14/23 07/14/23 History Allergies Allergy/AdvReac Type Severity Reaction Status Date / Time captopril Allergy Cough Verified 07/14/23 07:24 cephalexin monohydrate Allergy Rash/Hives Verified 07/14/23 07:24 [From Keflex] Penicillins Allergy Rash/Hives Verified 07/14/23 07:24 Physical Exam Vitals: Vital Signs Temp Pulse Resp BP Pulse Ox 07/14/23 11:39 64 94 L 07/14/23 11:13 68 18 141/66 96 07/14/23 09:00 64 24 131/57 99 07/14/23 06:02 60 17 133/52 97 07/14/23 04:03 51 L 18 103/61 96 07/14/23 02:33 97.4 F L 54 L 18 105/53 92 L Intake and Output 07/13/23 07/14/23 07/14/23 22:59 06:59 14:59 Other: Weight 68.039 kg Results 07/14/23 02:35 07/14/23 02:35 Cardiac Enzymes 07/14/23 07/14/23 Range/Units 02:35 02:35 AST 25 (14-36) U/L Troponin I <0.012 (0.000-0.034) ng/mL Coagulation 07/14/23 Range/Units 02:35 PT 10.2 (10.0-12.5) sec APTT 24.9 (22.0-30.0) sec CBC 07/14/23 Range/Units 02:35 WBC 8.9 (3.8-10.6) k/uL RBC 3.01 L (3.80-5.40) m/uL Hgb 9.5 L (11.4-16.0) gm/dL Hct 27.7 L (34.0-46.0) % Plt Count 185 (150-450) k/uL Comprehensive Metabolic Panel 07/14/23 Range/Units 02:35 Sodium 134 L (137-145) mmol/L Potassium 4.8 (3.5-5.1) mmol/L Chloride 96 L (98-107) mmol/L Carbon Dioxide 25 (22-30) mmol/L BUN 62 H (7-17) mg/dL Creatinine 5.58 H (0.52-1.04) mg/dL Glucose 144 H (74-99) mg/dL Calcium 8.2 L (8.4-10.2) mg/dL AST 25 (14-36) U/L ALT 23 (4-34) U/L Alkaline Phosphatase 120 (38-126) U/L Total Protein 5.9 L (6.3-8.2) g/dL Albumin 3.2 L (3.5-5.0) g/dL Current Medications Generic Name Dose Route Start Last Admin Trade Name Freq PRN Reason Stop Dose Admin Albuterol/Ipratropium 3 ml 07/14/23 12:00 07/14/23 11:38 Ipratropium-Albuterol 3 Ml Neb INHALATION 3 ml RT-QID RANDI Administration Budesonide/Formoterol Fumarate 2 puff 07/14/23 20:00 Symbicort 160-4.5 Mcg Inhaler INHALATION RT-BID RANDI Bumetanide 1 mg 07/14/23 09:00 07/14/23 09:05 Bumetanide 0.25 Mg/Ml 10 Ml Vial IV 1 mg Q12HR RANDI Administration Methylprednisolone Sodium Succinate 40 mg 07/14/23 08:15 07/14/23 09:07 Methylprednisolone Sod Succi 40 Mg/Ml 1 Ml Vial IV 40 mg Q8HR RANDI Administration Morphine Sulfate 4 mg 07/14/23 05:59 Morphine Sulfate 4 Mg/Ml Syringe IV Q4HR PRN Severe Pain (Scale 7 to 10) Naloxone HCl 0.2 mg 07/14/23 05:59 Naloxone 0.4 Mg/Ml 1 Ml Vial IV Q2M PRN Opioid Reversal Ondansetron HCl 4 mg 07/14/23 05:59 Ondansetron 4 Mg/2 Ml Vial IVP Q8HR PRN Nausea And Vomiting Intake and Output 07/13/23 07/14/23 07/14/23 22:59 06:59 14:59 Other: Weight 68.039 kg 07/14/23 02:35 07/14/23 02:35
--- NOTE | 2023-07-14 12:08 | P.HPIM ---
History of Present Illness 48-year-old female came in with shortness of breath found to be in hypoxic respiratory failure requiring 15 L of oxygen via nonrebreather. Patient has pulmonary edema on the chest x-ray. Patient had normal systolic function in the past and history of diastolic function. Patient is end-stage renal disease patient on hemodialysis. Patient is quite weak able to answer questions alert oriented x 3 at this time when I evaluated the patient patient had severe pulmonary hypertension as well. Patient has bilateral rhonchi patient is presently receiving IV Bumex at this time. Patient's D-dimer is elevated because of which pulmonary recommended VQ scan. Patient is complaining of cough without any significant sputum production. Patient also has history of sleep apnea patient used to smoke and quit in 2009. REVIEW OF SYSTEMS: Rest of the review of systems are negative except those mentioned above PHYSICAL EXAMINATION: GENERAL: The patient is alert and oriented x3, patient is not in distress on nonrebreather well developed, well nourished. HEENT: Pupils are round and equally reacting to light. EOMI. No scleral icterus. No conjunctival pallor. Normocephalic, atraumatic. No pharyngeal erythema. No thyromegaly. CARDIOVASCULAR: S1 and S2 present. No murmurs, rubs, or gallops. PULMONARY: Bilateral crackles rhonchi and possible wheezing. ABDOMEN: Soft, nontender, nondistended, normoactive bowel sounds. No palpable organomegaly. MUSCULOSKELETAL: No joint swelling or deformity. EXTREMITIES: No cyanosis, clubbing, or pedal edema. NEUROLOGICAL: Gross neurological examination did not reveal any focal deficits. SKIN: No rashes. Assessment and plan -Acute hypoxic respiratory failure mostly because of pulmonary edema secondary to volume overload from diastolic function heart failure and also end-stage renal disease I cannot completely rule out COPD exacerbation patient was eval by pulmonology and the recommending systemic steroids at this time which will be continued -Possible COPD with acute exacerbation -Hyponatremia secondary to secondary to end-stage renal disease patient will undergo hemodialysis today patient is also receiving IV Bumex. -Type 2 diabetes mellitus patient is on systemic steroids her blood sugars are expected to go hide patient has been started scale insulin May need long-acting insulin as long as she is on steroids -CVA TIA in the past -Sleep apnea uses BiPAP at home -Coronary artery disease with cardiac catheterization in the past -Hypertension -Hyperlipidemia And for above-mentioned chronic medical problems patient will be resumed on appropriate home medications DVT prophylaxis: Subcutaneous heparin Past Medical History Past Medical History: Coronary Artery Disease (CAD), CVA/TIA, Diabetes Mellitus, Dialysis, Hyperlipidemia, Hypertension, Osteoarthritis (OA), Renal Disease, Sleep Apnea/CPAP/BIPAP Additional Past Medical History / Comment(s): varicose veins (removed)., stroke X3-left side weaker uses a walker and w/c,- states she usually needs assistance with ambulation., TIA's, no CPAP used, hiatal hernia, ESRD - hemodialysis , , . with fistula left forearm., recent removal of peritoneal dialysis catheter., urinates freq small amounts, hx bleeding ulcer., History of Any Multi-Drug Resistant Organisms: None Reported Past Surgical History: Breast Surgery, Heart Catheterization, Orthopedic Surgery Additional Past Surgical History / Comment(s): Bilat Carotid Endarterectomy, lumpectomy Rt breast, CTR bilateral wrists, pilonidal cyst removal, varicose vein removal, bilateral cataracts removed, Fistula left wrist surgery 2019; Fistula revision 05/30/20., peritoneal dialysis catheter and removal Past Anesthesia/Blood Transfusion Reactions: Previous Problems w/ Anesthesia, Motion Sickness Additional Past Anesthesia/Blood Transfusion Reaction / Comment(s): Had trouble waking up after surgery. no problems with prior blood transfusion Past Psychological History: No Psychological Hx Reported Smoking Status: Former smoker Past Alcohol Use History: None Reported Additional Past Alcohol Use History / Comment(s): Quit smoking 2010 est, started smoking as a teen, 1 PPD. Past Drug Use History: None Reported - Past Family History Mother Family Medical History: Cancer Additional Family Medical History / Comment(s): breast cancer w/ mets Father Family Medical History: Cancer Additional Family Medical History / Comment(s): esophageal cancer Brother(s) Family Medical History: Cancer Additional Family Medical History / Comment(s): colon cancer, esophageal cancer Medications and Allergies Home Medications Medication Instructions Recorded Confirmed Type Aspirin EC [Ecotrin Low Dose] 81 mg PO DAILY@0900 09/18/07/14/23 History Albuterol Inhaler [Ventolin Hfa 2 puff INHALATION RT-Q6H PRN 10/29/22 07/14/23 History Inhaler] Bumetanide [BUMEX] 5 mg PO DAILY@89910/29/22 07/14/23 History Ferrous Sulfate [Iron] 325 mg PO BID@0900,209910/29/22 07/14/23 History INSULIN LISPRO (HumaLOG) [humaLOG] See Protocol SQ ACHS 10/29/22 07/14/23 History NIFEdipine [Procardia XL] 90 mg PO HS@209910/29/22 07/14/23 History Sucralfate [Carafate] 1 gm PO BID@0900,209910/29/22 07/14/23 History Atorvastatin [Lipitor] 20 mg PO HS@209907/06/23 07/14/23 History Citalopram Hydrobromide [CeleXA] 20 mg PO DAILY@89907/06/23 07/14/23 History Vit B Complx C/Folic Acid/Zinc 1 tab PO MOWEFR@89907/06/23 07/14/23 History [Renaplex Tablet] carvediloL [Coreg] 12.5 mg PO BID@0900,209907/06/23 07/14/23 History Losartan [Cozaar] 50 mg PO DAILY@0907/14/23 07/14/23 History Allergies Allergy/AdvReac Type Severity Reaction Status Date / Time captopril Allergy Cough Verified 07/14/23 07:24 cephalexin monohydrate Allergy Rash/Hives Verified 07/14/23 07:24 [From Keflex] Penicillins Allergy Rash/Hives Verified 07/14/23 07:24 Physical Exam Vitals: Vital Signs Temp Pulse Resp BP Pulse Ox 07/14/23 11:49 61 07/14/23 11:39 64 94 L 07/14/23 11:13 68 18 141/66 96 07/14/23 09:00 64 24 131/57 99 07/14/23 06:02 60 17 133/52 97 07/14/23 04:03 51 L 18 103/61 96 07/14/23 02:33 97.4 F L 54 L 18 105/53 92 L Intake and Output 07/13/23 07/14/23 07/14/23 22:59 06:59 14:59 Other: Weight 68.039 kg Results CBC & Chem 7: 07/14/23 02:35 07/14/23 02:35 Labs: Abnormal Lab Results - Last 24 Hours (Table) 07/14/23 07/14/23 07/14/23 Range/Units 02:35 02:35 02:35 RBC 3.01 L (3.80-5.40) m/uL Hgb 9.5 L (11.4-16.0) gm/dL Hct 27.7 L (34.0-46.0) % RDW 22.3 H (11.5-15.5) % Lymphocytes # 0.7 L (1.0-4.8) k/uL D-Dimer 1.74 H (<0.60) mg/L FEU Sodium 134 L (137-145) mmol/L Chloride 96 L (98-107) mmol/L BUN 62 H (7-17) mg/dL Creatinine 5.58 H (0.52-1.04) mg/dL Glucose 144 H (74-99) mg/dL Calcium 8.2 L (8.4-10.2) mg/dL Total Protein 5.9 L (6.3-8.2) g/dL Albumin 3.2 L (3.5-5.0) g/dL
[2023-07-14 13:27] LABS: Glucose,Whole Blood 158 mg/dL (70-110)
[2023-07-14] MEDS: FAMOTIDINE 20 MG TAB PO SCH (13:45)
[2023-07-14] MEDS: INSULIN ASPART (NovoLOG) 100 UNIT/ML VIAL SQ SCH (13:46)
--- NOTE | 2023-07-14 14:01 | P.CNPUL ---
History of Present Illness Consult date: 07/14/23 Requesting physician: García Espinoza Reason for consult: dyspnea, abnormal CXR/CT Chief complaint: Shortness of breath, hypoxemia History of present illness: This is a 68-year-old female patient with a known history of previous CVA/TIA status post bilateral carotid endarterectomies, chronic kidney disease on hemodialysis on a Wednesday schedule, hypertension, hyperlipidemia, diabetes mellitus severe pulmonary hypertension, diastolic congestive heart failure who resides in a extended care facility. She was brought into the emergency room early this morning with shortness of breath and decreased O2 saturations. This x-ray reveals mild pulmonary vascular congestion. White count 8.9. Hemoglobin 9.5. Platelets 185. D-dimer 1.74. Sodium 134. Potassium 4.8. Bicarb 25. BUN 62. Creatinine 5.58. Glucose 144. proBNP 8000. Troponin negative x 1. Viral screen negative. She is seen today in consultation in the emergency department. She is currently awake and alert. In mild respiratory distress, she is requiring 15 L via nonrebreather mask to maintain O2 saturations in the 90s. She has significant scattered rhonchi and wheezing. Review of Systems REVIEW OF SYSTEMS: CONSTITUTIONAL: Denies any recent significant weight loss or weight gain. EYES: Denies change in vision. EARS, NOSE, MOUTH, THROAT: Denies headaches, denies sore throat. CARDIOVASCULAR: Denies chest pain, palpitations or syncopal episodes. RESPIRATORY: Positive for shortness of breath, cough, congestion no hemoptysis. GASTROINTESTINAL: Denies change in appetite, denies abdominal pain GENITOURINARY: Denies hematuria, denies infections. MUSKULOSKELETAL: Denies pain, denies swelling. INTEGUMENTARY: Denies rash, denies eczema. NEUROLOGICAL: Denies recent memory loss, no recent seizure activity. PSYCHIATRIC: Denies anxiety, denies depression. HEMATOLOGIC/LYMPHATIC: Denies anemia, denies enlarged lymph nodes. Past Medical History Past Medical History: Coronary Artery Disease (CAD), CVA/TIA, Diabetes Mellitus, Dialysis, Hyperlipidemia, Hypertension, Osteoarthritis (OA), Renal Disease, Sleep Apnea/CPAP/BIPAP Additional Past Medical History / Comment(s): varicose veins (removed)., stroke X3-left side weaker uses a walker and w/c,- states she usually needs assistance with ambulation., TIA's, no CPAP used, hiatal hernia, ESRD - hemodialysis , , SA. with fistula left forearm., recent removal of peritoneal dialysis catheter., urinates freq small amounts, hx bleeding ulcer., History of Any Multi-Drug Resistant Organisms: None Reported Past Surgical History: Breast Surgery, Heart Catheterization, Orthopedic Surgery Additional Past Surgical History / Comment(s): Bilat Carotid Endarterectomy, lumpectomy Rt breast, CTR bilateral wrists, pilonidal cyst removal, varicose vein removal, bilateral cataracts removed, Fistula left wrist surgery 2019; Fistula revision 05/30/20., peritoneal dialysis catheter and removal Past Anesthesia/Blood Transfusion Reactions: Previous Problems w/ Anesthesia, Motion Sickness Additional Past Anesthesia/Blood Transfusion Reaction / Comment(s): Had trouble waking up after surgery. no problems with prior blood transfusion Past Psychological History: No Psychological Hx Reported Smoking Status: Former smoker Past Alcohol Use History: None Reported Additional Past Alcohol Use History / Comment(s): Quit smoking 2009 est, started smoking as a teen, 1 PPD. Past Drug Use History: None Reported - Past Family History Mother Family Medical History: Cancer Additional Family Medical History / Comment(s): breast cancer w/ mets Father Family Medical History: Cancer Additional Family Medical History / Comment(s): esophageal cancer Brother(s) Family Medical History: Cancer Additional Family Medical History / Comment(s): colon cancer, esophageal cancer Medications and Allergies Home Medications Medication Instructions Recorded Confirmed Type Aspirin EC [Ecotrin Low Dose] 81 mg PO DAILY@0909/19/15 07/14/23 History Albuterol Inhaler [Ventolin Hfa 2 puff INHALATION RT-Q6H PRN 10/29/22 07/14/23 History Inhaler] Bumetanide [BUMEX] 5 mg PO DAILY@89910/29/22 07/14/23 History Ferrous Sulfate [Iron] 325 mg PO BID@899,209910/29/22 07/14/23 History INSULIN LISPRO (HumaLOG) [humaLOG] See Protocol SQ ACHS 10/29/22 07/14/23 History NIFEdipine [Procardia XL] 90 mg PO HS@209910/29/22 07/14/23 History Sucralfate [Carafate] 1 gm PO BID@899,209910/29/22 07/14/23 History Atorvastatin [Lipitor] 20 mg PO HS@209907/06/23 07/14/23 History Citalopram Hydrobromide [CeleXA] 20 mg PO DAILY@0907/06/23 07/14/23 History Vit B Complx C/Folic Acid/Zinc 1 tab PO MOWEFR@0907/06/23 07/14/23 History [Renaplex Tablet] carvediloL [Coreg] 12.5 mg PO BID@0900,209907/06/23 07/14/23 History Losartan [Cozaar] 50 mg PO DAILY@0900 07/14/23 07/14/23 History Allergies Allergy/AdvReac Type Severity Reaction Status Date / Time captopril Allergy Cough Verified 07/14/23 07:24 cephalexin monohydrate Allergy Rash/Hives Verified 07/14/23 07:24 [From Keflex] Penicillins Allergy Rash/Hives Verified 07/14/23 07:24 Physical Exam Vitals: Vital Signs Temp Pulse Resp BP Pulse Ox 07/14/23 13:27 66 24 162/72 98 07/14/23 11:49 61 07/14/23 11:39 64 94 L 07/14/23 11:13 68 18 141/66 96 07/14/23 09:00 64 24 131/57 99 07/14/23 06:02 60 17 133/52 97 07/14/23 04:03 51 L 18 103/61 96 07/14/23 02:33 97.4 F L 54 L 18 105/53 92 L Intake and Output 07/13/23 07/14/23 07/14/23 22:59 06:59 14:59 Other: Weight 68.039 kg GENERAL EXAM: Alert, 68-year-old female, poor historian, on a nonrebreather mask, in mild respiratory distress. HEAD: Normocephalic. EYES: Normal reaction of pupils, equal size. NOSE: Clear with pink turbinates. THROAT: No erythema or exudates. NECK: No masses, no JVD. CHEST: No chest wall deformity. LUNGS: Equal air entry with bilateral scattered rhonchi, end expiratory wheeze, crackles in the bases. CVS: S1 and S2 normal with no audible murmur, regular rhythm. ABDOMEN: No hepatosplenomegaly, normal bowel sounds, no guarding or rigidity. SPINE: No scoliosis or deformity SKIN: No rashes CENTRAL NERVOUS SYSTEM: No focal deficits, tone is normal in all 4 extremities. EXTREMITIES: There is no peripheral edema. No clubbing, no cyanosis. Peripheral pulses are intact. Results - Laboratory Findings CBC and BMP: 07/14/23 02:35 07/14/23 02:35 PT/INR, D-dimer PT 10.2 sec (10.0-12.5) 07/14/23 02:35 INR 0.9 (<1.2) 07/14/23 02:35 D-Dimer 1.74 mg/L FEU (<0.60) H 07/14/23 02:35 Abnormal lab findings: Abnormal Labs 07/14/23 07/14/23 07/14/23 02:35 02:35 02:35 RBC 3.01 L Hgb 9.5 L Hct 27.7 L RDW 22.3 H Lymphocytes # 0.7 L D-Dimer 1.74 H Sodium 134 L Chloride 96 L BUN 62 H Creatinine 5.58 H Glucose 144 H POC Glucose (mg/dL) Calcium 8.2 L Total Protein 5.9 L Albumin 3.2 L 07/14/23 13:26 RBC Hgb Hct RDW Lymphocytes # D-Dimer Sodium Chloride BUN Creatinine Glucose POC Glucose (mg/dL) 158 H Calcium Total Protein Albumin - Diagnostic Findings Chest x-ray: image reviewed Assessment and Plan Assessment: Acute hypoxemic respiratory failure secondary to acute exacerbation diastolic congestive heart failure and COPD exacerbation Severe pulmonary hypertension Stage renal disease receiving hemodialysis Wednesday Remote history of smoking Recent discharge for generalized weakness with age-related physical debility History of seizure History of TIA Hyperlipidemia Hypertension Obstructive sleep apnea utilizing CPAP Iron deficiency anemia Plan: The patient was seen and evaluated Chest x-ray, labs and medications reviewed Initiate Bumex 1 mg IV push every 12 hours Add DuoNeb inhalations Add Symbicort Add Solu-Medrol Plan for hemodialysis today Titrate the FiO2 as tolerated We will continue to follow and make further recommendations based on her clinical status I have personally seen and examined the patient, performed the documentation and the assessment and plan as written. Number of minutes spent on the visit: 20.
--- NOTE | 2023-07-14 14:11 | NM ---
EXAMINATION TYPE: NM pul vent and perfuse DATE OF EXAM: 07/14/2023 CLINICAL INDICATION: Female, 68 years old with history of PE; COMPARISON: Chest x-ray 07/14/2023 TECHNIQUE: Utilizing inhalation of 67.4 mCi Tc 99m DTPA aerosol and intravenous injection of 4.8 mCi of Tc 99m MAA, ventilation and perfusion images are acquired post injection in multiple projections. FINDINGS: Normal radiotracer distribution is noted in the lungs. There is a matched defect right lower lobe. Sm all mismatched defect not excluded. IMPRESSION: Intermediate probability for pulmonary embolism by PIOPED criteria. Consider correlation with CTA pul monary embolism protocol.
[2023-07-14 15:47] LABS: % Iron Saturation 27.78 (12.00-45.00)
[2023-07-14] MEDS: HEPARIN SODIUM,PORCINE 5,000 UNIT/ML 1 ML VIAL SQ SCH (16:05)
[2023-07-14 16:43] LABS: Glucose,Whole Blood 190 mg/dL (70-110)
[2023-07-14] MEDS: SYMBICORT 160-4.5 MCG INHALER INHALATION SCH (20:11)
[2023-07-14] MEDS: SUCRALFATE 1 GM TAB PO SCH (21:34)
[2023-07-14] MEDS: ATORVASTATIN 20 MG TAB PO SCH (21:34)
[2023-07-14] MEDS: carvediloL 12.5 MG TAB PO SCH (21:34)
[2023-07-14] MEDS: NIFEdipine XL 90 MG TAB.ER.24 PO SCH (21:36)
[2023-07-15 06:47] LABS: Glucose,Whole Blood 154 mg/dL (70-110)
[2023-07-15 08:00] LABS: Basophils % (A) 0 %; Eosinophils % (A) 0 %; HCT 30.2 % (34.0-46.0); HGB 9.6 gm/dL (11.4-16.0); Lymphocytes # (A) 0.4 k/uL (1.0-4.8); Lymphocytes % (A) 5 %; MCH 28.2 pg (25.0-35.0); MCHC 31.7 g/dL (31.0-37.0); Mean Platelet Volume 8.8; Monocytes # (A) 0.3 k/uL (0-1.0); Monocytes % (A) 4 %; Neutrophils # (A) 7.5 k/uL (1.3-7.7); Neutrophils % (A) 90 %; Platelet Count 194 k/uL (150-450); RBC 3.39 m/uL (3.80-5.40); RDW 14.7 % (11.5-15.5); WBC 8.4 k/uL (3.8-10.6)
[2023-07-15 08:18] LABS: ALT 19 U/L (4-34); AST 17 U/L (14-36); African American GFR (CKD) 12 (>60 ml/min/1.73 sqM); Albumin 3.2 g/dL (3.5-5.0); Alkaline Phosphatase 121 U/L (38-126); Anion Gap 12 mmol/L; Blood Urea Nitrogen 43 mg/dL (7-17); Calcium 8.5 mg/dL (8.4-10.2); Carbon Dioxide 26 mmol/L (22-30); Chloride 97 mmol/L (98-107); Glucose 144 mg/dL (74-99); Magnesium 1.8 mg/dL (1.6-2.3); Non-African American GFR(CKD) 11 (>60 ml/min/1.73 sqM); Phosphorus 6.7 mg/dL (2.5-4.5); Potassium 4.2 mmol/L (3.5-5.1); Sodium 135 mmol/L (137-145); Total Bilirubin 0.6 mg/dL (0.2-1.3)
[2023-07-15] MEDS: LOSARTAN 50 MG TAB PO SCH (09:11)
[2023-07-15] MEDS: ASPIRIN 81 MG PO SCH (09:11)
[2023-07-15] MEDS: FAMOTIDINE 20 MG TAB PO SCH (09:11)
[2023-07-15] MEDS: CITALOPRAM HYDROBROMIDE 20 MG TAB PO SCH (09:13)
[2023-07-15] MEDS ORDERED: HEPARIN SODIUM 1,000 UN/ML (10ML VL) IV PRN (09:38)
[2023-07-15] MEDS: HEPARIN SODIUM 1,000 UN/ML (10ML VL) IV ONE (09:56)
[2023-07-15] MEDS: HEPARIN SOD,PORK IN 0.45% NACL 25,000 UNIT in 0.45% NACL 1 250ML.BAG IV SCH (09:58)
--- NOTE | 2023-07-15 10:32 | P.PN ---
Subjective Progress Note Date: 07/15/23 HISTORY OF PRESENT ILLNESS: This is a 68-year-old female with a past medical history significant for hyp ertension, hyperlipidemia, carotid artery stenosis status post bilateral carotid endarterectomy, CVA/TIA, end-stage renal disease on hemodialysis, and diabetes. Patient follows in the office with Dr. Mancuso. We have been asked to see the patient in consultation for congestive heart failure. Patient examined at the bedside in the emergency room. Patient was brought to the hospital from her ECF secondary to hypoxia. Patient is somewhat lethargic at the time of examination. Patient reports shortness of breath this morning. She is currently on a nonrebreather. She states that she has been compliant with her hemodialysis and has not missed any sessions. Patient reports that she does still make urine. She denies chest pain or pressure. Patient was found to be in congestive heart failure and was started on IV diuretics. According to cardiology office notes, the patient had a cardiac catheterization performed about 4 years ago at [facility] and that revealed relatively normal coronary arteries. DIAGNOSTICS: - EKG reveals sinus bradycardia with no signs of acute ischemia. - Chest xray some interval increase in the interstitium, consider bronchitis/asthma or mild pulmonary vascular congestion.. - Laboratory data: WBC 8.9. Hemoglobin 9.5. Platelet count 185. D-dimer 1.74. Sodium 134. Potassium 4.8. BUN 62. Creatinine 5.58. Magnesium 1.8. Troponin negative x 1. proBNP 8000. - Current home cardiac medications include carvedilol 12.5 mg twice a day, nifedipine 90 mg at night, losartan 50 mg daily, Bumex 5 mg daily, Lipitor 20 mg at night, aspirin 81 mg daily. - Most recent echocardiogram obtained in July 2023 revealed ejection fraction 60 to 65%, severe pulmonary hypertension, mild mitral regurgitation, mild mitral stenosis, mild aortic stenosis -Patient underwent Lexiscan stress test in September 2021 which was negative for ischemia 07/14 Yesterday, patient underwent VQ scan which reveals intermediate probability for pulmonary embolism. Patient is seen today in follow-up and remains in the emergency center. Patient has been maintained on IV Bumex 1 mg every 12 hours. She has a negative fluid balance of 2900. Repeat blood work reveals hemoglobin 9.6. Sodium 135, potassium 4.2, BUN 43 creatinine 4.08. Patient is followed by pulmonary medicine and nephrology. Patient is off rebreather and currently on 15 L high flow nasal cannula with pulse ox 99%. Blood pressure 126/73, heart rate 58. Patient was on a nonrebreather yesterday during evaluation and was weaned down to 10 L nasal cannula. She had an episode of hypoxia last evening and oxygen was increased to 15 L. Patient underwent hemodialysis yesterday and is scheduled again today. Patient states that she is feeling okay today. She denies any chest pain. She states she is always chronically short of breath. She has occasional lightheadedness when she moves. PHYSICAL EXAM: VITAL SIGNS: Reviewed. GENERAL: Well-developed in no acute distress. Currently on a nonrebreather. HEENT: Head is normocephalic. Pupils are equal, round. Sclerae anicteric. Mucous membranes of the mouth are moist. Neck supple. LUNGS: Respirations even and unlabored. Lungs with bilateral expiratory wheezing and bibasilar crackles HEART: Regular rate and rhythm. S1 and S2 heard. ABDOMEN: Soft. Nondistended. Nontender. EXTREMITIES: Normal range of motion. No clubbing or cyanosis. Peripheral pulses intact. No lower extremity edema NEUROLOGIC: Awake and alert. ASSESSMENT: Shortness of breath Acute on chronic heart failure with preserved ejection fraction Severe pulmonary hypertension End-stage renal disease on hemodialysis, Wednesday Acute hypoxic respiratory failure, currently on a nonrebreather Acute COPD exacerbation Intermediate probability for pulmonary embolism on VQ scan-obtain CTA Hypertension Hyperlipidemia Carotid artery stenosis status post bilateral carotid endarterectomy History of TIA/CVA PLAN: No need to repeat echocardiogram as this was performed earlier this month Resume home cardiac medications Continue IV Bumex 1 mg every 12 hours Daily weights, accurate intake and output, and monitoring of kidney function CTA of the chest will be ordered to rule out pulmonary embolism Further recommendations pending patient course Nurse practitioner note has been reviewed by physician. Signing provider agrees with the documented findings, assessment, and plan of care documented by PATROL MOTHER as a scribe. Objective - Vital Signs Vital signs: Vital Signs Temp 98.5 F 07/14/23 21:42 Pulse 58 L 07/15/23 09:15 Resp 20 07/15/23 09:15 BP 126/73 07/15/23 09:15 Pulse Ox 99 07/15/23 09:15 FiO2 Intake & Output 05/10/2907/15/23 07/15/23 18:59 06:59 18:59 Intake Total 500 Output Total 3400 Balance -2900 Intake: Hemodialysis 500 Output: Hemodialysis 3400 - Labs CBC & Chem 7: 07/15/23 06:48 07/15/23 06:48 Labs: Abnormal Lab Results - Last 24 Hours (Table) 07/14/23 07/14/23 07/14/23 Range/Units 02:35 13:26 16:38 RBC (3.80-5.40) m/uL Hgb (11.4-16.0) gm/dL Hct (34.0-46.0) % Lymphocytes # (1.0-4.8) k/uL Sodium (137-145) mmol/L Chloride (98-107) mmol/L BUN (7-17) mg/dL Creatinine (0.52-1.04) mg/dL Glucose (74-99) mg/dL POC Glucose (mg/dL) 158 H 190 H (70-110) mg/dL Phosphorus (2.5-4.5) mg/dL TIBC 216 L (228-460) UG/DL Transferrin 154.0 L (204.0-354.0) mg/dL Ferritin 1646.0 H (10.0-291.0) ng/mL Total Protein (6.3-8.2) g/dL Albumin (3.5-5.0) g/dL 07/15/23 07/15/23 07/15/23 Range/Units 06:45 06:48 06:48 RBC 3.39 L (3.80-5.40) m/uL Hgb 9.6 L (11.4-16.0) gm/dL Hct 30.2 L (34.0-46.0) % Lymphocytes # 0.4 L (1.0-4.8) k/uL Sodium 135 L (137-145) mmol/L Chloride 97 L (98-107) mmol/L BUN 43 H (7-17) mg/dL Creatinine 4.08 H (0.52-1.04) mg/dL Glucose 144 H (74-99) mg/dL POC Glucose (mg/dL) 154 H (70-110) mg/dL Phosphorus 6.7 H (2.5-4.5) mg/dL TIBC (228-460) UG/DL Transferrin (204.0-354.0) mg/dL Ferritin (10.0-291.0) ng/mL Total Protein 6.0 L (6.3-8.2) g/dL Albumin 3.2 L (3.5-5.0) g/dL
--- NOTE | 2023-07-15 11:13 | CT ---
EXAMINATION TYPE: CT angio chest CT DLP: 336 mGycm, Automated exposure control for dose reduction was used. DATE OF EXAM: 07/15/2023 11:01 AM COMPARISON: Chest radiograph same day. CLINICAL INDICATION:Female, 68 years old with history of elevated ddimer, LOUISE; elevated d-dimer TECHNIQUE/CONTRAST: CTA scan of the thorax is performed with IV Contrast, patient injected with 80 mL of Isovue 370, MIP images are created and reviewed these are created on a separate workstation.. FINDINGS: Pulmonary Artery: There is no evidence for a filling defect within the pulmonary vasculature to sugge st acute pulmonary embolism. The pulmonary artery is of normal size. Lungs/Pleura: No evidence of right airspace consolidation, pleural effusion or pneumothorax. Atelecta sis changes in the right lower lobe medially. Airspace opacities in the left lower lobe posteriorly. Airway: A few opacified large airways in the left lower lung including the left upper lung and right medial lung. Heart: Heart is within normal limits for size. Moderate to severe calcified lesions of the coronary a rteries. Vasculature: Moderate atherosclerotic calcifications are present throughout the aorta and its branche s. Mediastinum: No gross evidence of adenopathy. Musculoskeletal: No acute osseous abnormalities Soft Tissues: Unremarkable. Lower neck: No significant findings. Upper Abdomen: Right adrenal 4.8 cm probable lipid rich adrenal adenoma. Atrophic kidneys bilaterally . IMPRESSION: 1. No evidence of pulmonary embolism. 2. Airspace opacities within the left lower lobe with opacified airways correlate for retained secret ions and/or aspiration pneumonia. Additional opacified airways supplying areas of atelectasis. Correl ate for mucus plugging.
--- NOTE | 2023-07-15 11:42 | P.PN ---
Subjective Patient is seen in follow-up for end-stage renal disease. She is maintained on hemodialysis on Wednesday schedule. Tolerated 3 L u ltrafiltration yesterday. Now on high flow nasal cannula. Vital signs are stable. General: No acute distress. HEENT: Head exam is unremarkable. LUNGS: No audible rhonchi or wheezes. HEART: Rate and Rhythm are regular. ABDOMEN: Nontender. EXTREMITITES: No edema. Objective - Vital Signs Vital signs: Vital Signs Temp 97.8 F 07/15/23 11:01 Pulse 56 L 07/15/23 11:25 Resp 22 07/15/23 11:01 BP 130/57 07/15/23 11:01 Pulse Ox 99 07/15/23 11:01 FiO2 Intake & Output 07/14/23 07/15/23 07/15/23 18:59 06:59 18:59 Intake Total 500 Output Total 3400 Balance -2900 Intake: Hemodialysis 500 Output: Hemodialysis 3400 - Labs CBC & Chem 7: 07/15/23 10:20 07/15/23 06:48 Labs: Abnormal Lab Results - Last 24 Hours (Table) 07/14/23 07/14/23 07/14/23 Range/Units 02:35 13:26 16:38 WBC (3.8-10.6) k/uL RBC (3.80-5.40) m/uL Hgb (11.4-16.0) gm/dL Hct (34.0-46.0) % MCH (25.0-35.0) pg MCHC (31.0-37.0) g/dL RDW (11.5-15.5) % Lymphocytes # (1.0-4.8) k/uL Sodium (137-145) mmol/L Chloride (98-107) mmol/L BUN (7-17) mg/dL Creatinine (0.52-1.04) mg/dL Glucose (74-99) mg/dL POC Glucose (mg/dL) 158 H 190 H (70-110) mg/dL Phosphorus (2.5-4.5) mg/dL TIBC 216 L (228-460) UG/DL Transferrin 154.0 L (204.0-354.0) mg/dL Ferritin 1646.0 H (10.0-291.0) ng/mL Total Protein (6.3-8.2) g/dL Albumin (3.5-5.0) g/dL 07/15/23 07/15/23 07/15/23 Range/Units 06:45 06:48 06:48 WBC (3.8-10.6) k/uL RBC 3.39 L (3.80-5.40) m/uL Hgb 9.6 L (11.4-16.0) gm/dL Hct 30.2 L (34.0-46.0) % MCH (25.0-35.0) pg MCHC (31.0-37.0) g/dL RDW (11.5-15.5) % Lymphocytes # 0.4 L (1.0-4.8) k/uL Sodium 135 L (137-145) mmol/L Chloride 97 L (98-107) mmol/L BUN 43 H (7-17) mg/dL Creatinine 4.08 H (0.52-1.04) mg/dL Glucose 144 H (74-99) mg/dL POC Glucose (mg/dL) 154 H (70-110) mg/dL Phosphorus 6.7 H (2.5-4.5) mg/dL TIBC (228-460) UG/DL Transferrin (204.0-354.0) mg/dL Ferritin (10.0-291.0) ng/mL Total Protein 6.0 L (6.3-8.2) g/dL Albumin 3.2 L (3.5-5.0) g/dL 07/15/23 Range/Units 10:20 WBC 10.7 H (3.8-10.6) k/uL RBC 3.12 L (3.80-5.40) m/uL Hgb (11.4-16.0) gm/dL Hct 28.7 L (34.0-46.0) % MCH 37.9 H (25.0-35.0) pg MCHC 41.1 H (31.0-37.0) g/dL RDW 26.4 H (11.5-15.5) % Lymphocytes # (1.0-4.8) k/uL Sodium (137-145) mmol/L Chloride (98-107) mmol/L BUN (7-17) mg/dL Creatinine (0.52-1.04) mg/dL Glucose (74-99) mg/dL POC Glucose (mg/dL) (70-110) mg/dL Phosphorus (2.5-4.5) mg/dL TIBC (228-460) UG/DL Transferrin (204.0-354.0) mg/dL Ferritin (10.0-291.0) ng/mL Total Protein (6.3-8.2) g/dL Albumin (3.5-5.0) g/dL Assessment and Plan Plan: Assessment: 1. End-stage renal disease maintained on hemodialysis on Wednesday schedule. 2. Acute hypoxic respiratory failure. 3. Volume overload. Improved with ultrafiltration. 4. COPD exacerbation. 5. Acute on chronic diastolic CHF with severe pulmonary hypertension. 6. Anemia of chronic kidney disease. High ferritin noted. Hemoglobin better. 7. Chronic kidney disease mineral bone disease. Phosphorus level 6.7. Plan: Extra hemodialysis treatment today and another treatment tomorrow. Challenge ultrafiltration. Wean FiO2. Add torsemide 40 mg once daily. Stop Bumex. Add PhosLo with meals.
[2023-07-15] MEDS ORDERED: DARBEPOETIN ALFA 40 MCG/0.4 ML SYRINGE SQ SCH (11:45)
[2023-07-15 12:03] LABS: Glucose,Whole Blood 128 mg/dL (70-110)
[2023-07-15 13:05] LABS: Partial Thromboplastin Time 96.5 sec (22.0-30.0); Prothrombin Time 10.7 sec (10.0-12.5)
--- NOTE | 2023-07-15 14:27 | P.PN ---
Subjective Progress Note Date: 07/15/23 This is a 68-year-old female patient with a known history of previous CVA/TIA status post bilateral carotid endarterectomies, chronic kidney disease on hemodialysis on a Wednesday schedule, hypertension, hyperlipidemia, diabetes mellitus severe pulmonary hypertension, diastolic congestive heart failure who resides in a extended care facility. She was brought into the emergency room early this morning with shortness of breath and decreased O2 saturations. This x-ray reveals mild pulmonary vascular congestion. White count 8.9. Hemoglobin 9.5. Platelets 185. D-dimer 1.74. Sodium 134. Potassium 4.8. Bicarb 25. BUN 62. Creatinine 5.58. Glucose 144. proBNP 8000. Troponin negative x 1. Viral screen negative. She is seen today in consultation in the emergency department. She is currently awake and alert. In mild respiratory distress, she is requiring 15 L via nonrebreather mask to maintain O2 saturations in the 90s. She has significant scattered rhonchi and wheezing. The patient is seen today July 15, 2023 in follow-up in the emergency department. She is more awake and alert today. Breathing easier compared to yesterday. She did undergo hemodialysis with 3.4 L of fluid removed. She is still requiring 15 L high flow nasal cannula may not O2 saturations in the upper 90s. She is afebrile. Hemodynamically stable. CT angiogram ruled out pulmonary embolism. There is airspace opacities in left lower lobe with opacified airways possible aspiration pneumonia. White count 8.4. Hemoglobin 9.6. Platelets 194. Sodium 135. Potassium 4.2. Bicarb 26. BUN 43. Creatinine 4.08. Glucose 144. She remains on DuoNeb ventilations, Symbicort, Solu-Medrol. Antibiotics in the form of Levaquin. Remains on oral diuretics. Objective - Vital Signs Vital signs: Vital Signs Temp 97.8 F 07/15/23 11:01 Pulse 51 L 07/15/23 14:09 Resp 20 07/15/23 14:09 BP 113/58 07/15/23 14:09 Pulse Ox 96 07/15/23 14:09 FiO2 Intake & Output 07/14/23 07/15/23 07/15/23 18:59 06:59 18:59 Intake Total 500 Output Total 3400 Balance -2900 Intake: Hemodialysis 500 Output: Hemodialysis 3400 - Exam GENERAL EXAM: Alert, 68-year-old female, on 15 L high flow nasal cannula, in mild respiratory distress. HEAD: Normocephalic. EYES: Normal reaction of pupils, equal size. NOSE: Clear with pink turbinates. THROAT: No erythema or exudates. NECK: No masses, no JVD. CHEST: No chest wall deformity. LUNGS: Equal air entry with bilateral scattered rhonchi, end expiratory wheeze, crackles in the bases. CVS: S1 and S2 normal with no audible murmur, regular rhythm. ABDOMEN: No hepatosplenomegaly, normal bowel sounds, no guarding or rigidity. SPINE: No scoliosis or deformity SKIN: No rashes CENTRAL NERVOUS SYSTEM: No focal deficits, tone is normal in all 4 extremities. EXTREMITIES: There is no peripheral edema. No clubbing, no cyanosis. Peripheral pulses are intact. - Labs CBC & Chem 7: 07/15/23 10:20 07/15/23 06:48 Labs: Abnormal Lab Results - Last 24 Hours (Table) 07/14/23 07/14/23 07/15/23 Range/Units 02:35 16:38 06:45 RBC (3.80-5.40) m/uL Hgb (11.4-16.0) gm/dL Hct (34.0-46.0) % Lymphocytes # (1.0-4.8) k/uL APTT (22.0-30.0) sec Sodium (137-145) mmol/L Chloride (98-107) mmol/L BUN (7-17) mg/dL Creatinine (0.52-1.04) mg/dL Glucose (74-99) mg/dL POC Glucose (mg/dL) 190 H 154 H (70-110) mg/dL Phosphorus (2.5-4.5) mg/dL TIBC 216 L (228-460) UG/DL Transferrin 154.0 L (204.0-354.0) mg/dL Ferritin 1646.0 H (10.0-291.0) ng/mL Total Protein (6.3-8.2) g/dL Albumin (3.5-5.0) g/dL 07/15/23 07/15/23 07/15/23 Range/Units 06:48 06:48 12:02 RBC 3.39 L (3.80-5.40) m/uL Hgb 9.6 L (11.4-16.0) gm/dL Hct 30.2 L (34.0-46.0) % Lymphocytes # 0.4 L (1.0-4.8) k/uL APTT (22.0-30.0) sec Sodium 135 L (137-145) mmol/L Chloride 97 L (98-107) mmol/L BUN 43 H (7-17) mg/dL Creatinine 4.08 H (0.52-1.04) mg/dL Glucose 144 H (74-99) mg/dL POC Glucose (mg/dL) 128 H (70-110) mg/dL Phosphorus 6.7 H (2.5-4.5) mg/dL TIBC (228-460) UG/DL Transferrin (204.0-354.0) mg/dL Ferritin (10.0-291.0) ng/mL Total Protein 6.0 L (6.3-8.2) g/dL Albumin 3.2 L (3.5-5.0) g/dL 07/15/23 Range/Units 12:34 RBC (3.80-5.40) m/uL Hgb (11.4-16.0) gm/dL Hct (34.0-46.0) % Lymphocytes # (1.0-4.8) k/uL APTT 96.5 H (22.0-30.0) sec Sodium (137-145) mmol/L Chloride (98-107) mmol/L BUN (7-17) mg/dL Creatinine (0.52-1.04) mg/dL Glucose (74-99) mg/dL POC Glucose (mg/dL) (70-110) mg/dL Phosphorus (2.5-4.5) mg/dL TIBC (228-460) UG/DL Transferrin (204.0-354.0) mg/dL Ferritin (10.0-291.0) ng/mL Total Protein (6.3-8.2) g/dL Albumin (3.5-5.0) g/dL Assessment and Plan Assessment: Acute hypoxemic respiratory failure secondary to acute exacerbation diastolic congestive heart failure and COPD exacerbation fluid volume overload Severe pulmonary hypertension End stage renal disease receiving hemodialysis Wednesday Remote history of smoking Recent discharge for generalized weakness with age-related physical debility History of seizure History of TIA Hyperlipidemia Hypertension Obstructive sleep apnea utilizing CPAP Iron deficiency anemia Plan: The patient was seen and evaluated CT angiogram, labs and medications reviewed Received hemodialysis yesterday, plans for today and tomorrow Changed to torsemide per nephrology Continue bronchodilators and steroids Currently on Levaquin Titrate the FiO2 as tolerated We will continue to follow I have personally seen and examined the patient, performed the documentation and the assessment and plan as written. Number of minutes spent on the visit: 10.
[2023-07-15] MEDS: LEVOFLOXACIN 500MG-D5W PMX 500 MG in DEXTROSE/WATER 1 100ML.BAG IVPB SCH (14:56)
[2023-07-15] MEDS: HEPARIN SODIUM,PORCINE 5,000 UNIT/ML 1 ML VIAL SQ SCH (15:00)
[2023-07-15] MEDS: CALCIUM ACETATE 667 MG TAB PO SCH (15:04)
[2023-07-15 16:04] LABS: Anisocytosis Moderate; Basophils % (A) 0 %; Eosinophils # (A) 0.1 k/uL (0-0.7); Eosinophils % (A) 1 %; HCT 32.8 % (34.0-46.0); HGB 11.1 gm/dL (11.4-16.0); Lymphocytes # (A) 0.4 k/uL (1.0-4.8); Lymphocytes % (A) 4 %; MCH 31.4 pg (25.0-35.0); MCHC 33.8 g/dL (31.0-37.0); MCV 93.1 fL (80.0-100.0); Mean Platelet Volume 8.4; Monocytes # (A) 0.4 k/uL (0-1.0); Monocytes % (A) 4 %; Neutrophils # (A) 9.3 k/uL (1.3-7.7); Neutrophils % (A) 91 %; Platelet Count 239 k/uL (150-450); RBC 3.53 m/uL (3.80-5.40); RDW 21.1 % (11.5-15.5); WBC 10.2 k/uL (3.8-10.6)
[2023-07-15 17:14] LABS: Glucose,Whole Blood 193 mg/dL (70-110)
[2023-07-15 21:35] LABS: Glucose,Whole Blood 186 mg/dL (70-110)
--- NOTE | 2023-07-15 22:29 | P.PN ---
Subjective Progress Note Date: 07/15/23 48-year-old female came in with shortness of breath found to be in hypoxic respiratory failure requiring 15 L of oxygen via nonrebreather. Patient has pulmonary edema on the chest x-ray. Patient had normal systolic function in the past and history of diastolic function. Patient is end-stage renal disease patient on hemodialysis. Patient is quite weak able to answer questions alert oriented x 3 at this time when I evaluated the patient patient had severe pulmonary hypertension as well. Patient has bilateral rhonchi patient is presently receiving IV Bumex at this time. Patient's D-dimer is elevated because of which pulmonary recommended VQ scan. Patient is complaining of cough without any significant sputum production. Patient also has history of sleep apnea patient used to smoke and quit in 2009. 07/15/2023 Patient is evaluated today in the ER pending pending bed on the medical floor. C ontinues on 15L hi flow cannula. D-Dimer was positive and VQ scan showed intermediate probability of PE. A CT angiography was done which was negative for PE does reveal airspace opacities within the left lower lobe with opacified airways correlate for retained secretions and or aspiration pneumonia. Additional opacified airways supplying areas fo atelectasis. Correlate for mucus plugging. Patient started on IV levofloxacin and speech therapy was consulted for evaluation. White blood cell count remains normal. Review of Systems Constitutional: Denied any fatigue denied any fever. Cardio vascular: denied any chest pain, palpitations Gastrointestinal: denied any nausea, vomiting, diarrhea Pulmonary: Reports shortness of breath and cough Neurologic denied any new focal deficits All inpatient medications were reviewed and appropriate changes in these medications as dictated in the interval history and assessment and plan. PHYSICAL EXAMINATION: GENERAL: The patient is alert and oriented x3, patient is not in distress on nonrebreather well developed, well nourished. HEENT: Pupils are round and equally reacting to light. EOMI. No scleral icterus. No conjunctival pallor. Normocephalic, atraumatic. No pharyngeal erythema. No thyromegaly. CARDIOVASCULAR: S1 and S2 present. No murmurs, rubs, or gallops. PULMONARY: Bilateral crackles rhonchi and possible wheezing. ABDOMEN: Soft, nontender, nondistended, normoactive bowel sounds. No palpable organomegaly. MUSCULOSKELETAL: No joint swelling or deformity. EXTREMITIES: No cyanosis, clubbing, or pedal edema. NEUROLOGICAL: Gross neurological examination did not reveal any focal deficits. SKIN: No rashes. Assessment and plan -Acute hypoxic respiratory failure mostly because of pulmonary edema secondary to volume overload from diastolic function heart failure and also end-stage renal disease -Rule out aspiration pneumonia has been started on IV levofloxacin given patients allergies. Patient will be evaluated by speech therapy -COPD exacerbation on systemic steroids pulmonary following. -Hyponatremia secondary to secondary to end-stage renal disease patient will undergo hemodialysis today patient transitioned to oral demadex. -Type 2 diabetes mellitus patient is on systemic steroids and will need to monitor blood glucose and titrate insulin and may require long acting insulin. -CVA TIA in the past -Sleep apnea uses BiPAP at home -Coronary artery disease with cardiac catheterization in the past -Hypertension -Hyperlipidemia GI prophylaxis DVT prophylaxis: Subcutaneous heparin Full Code The impression and plan of care has been dictated by Ann Day, Nurse Practitioner as directed. Dr. Alexis MD I have performed a history and physical examination and medical decision making of this patient, discussed the same with the dictator, and agree with the dictators assessment and plan as written, documented as a scribe. Based on total visit time, I have performed more than 50% of this visit. Objective - Vital Signs Vital signs: Vital Signs Temp 98.0 F 07/15/23 21:10 Pulse 58 L 07/15/23 21:10 Resp 16 07/15/23 22:11 BP 120/57 07/15/23 21:10 Pulse Ox 96 07/15/23 22:11 FiO2 Intake & Output 07/15/23 07/15/23 07/16/23 06:59 18:59 06:59 Intake Total 500 400 Output Total 3400 2400 Balance -2900 -2000 Intake: Hemodialysis 500 400 Output: Hemodialysis 3400 2400 - Labs CBC & Chem 7: 07/15/23 15:54 07/15/23 06:48 Labs: Abnormal Lab Results - Last 24 Hours (Table) 07/15/23 07/15/23 07/15/23 Range/Units 06:45 06:48 06:48 RBC 3.39 L (3.80-5.40) m/uL Hgb 9.6 L (11.4-16.0) gm/dL Hct 30.2 L (34.0-46.0) % RDW (11.5-15.5) % Neutrophils # (1.3-7.7) k/uL Lymphocytes # 0.4 L (1.0-4.8) k/uL APTT (22.0-30.0) sec Sodium 135 L (137-145) mmol/L Chloride 97 L (98-107) mmol/L BUN 43 H (7-17) mg/dL Creatinine 4.08 H (0.52-1.04) mg/dL Glucose 144 H (74-99) mg/dL POC Glucose (mg/dL) 154 H (70-110) mg/dL Phosphorus 6.7 H (2.5-4.5) mg/dL Total Protein 6.0 L (6.3-8.2) g/dL Albumin 3.2 L (3.5-5.0) g/dL 07/15/23 07/15/23 07/15/23 Range/Units 12:02 12:34 15:54 RBC 3.53 L (3.80-5.40) m/uL Hgb 11.1 L (11.4-16.0) gm/dL Hct 32.8 L (34.0-46.0) % RDW 21.1 H (11.5-15.5) % Neutrophils # 9.3 H (1.3-7.7) k/uL Lymphocytes # 0.4 L (1.0-4.8) k/uL APTT 96.5 H (22.0-30.0) sec Sodium (137-145) mmol/L Chloride (98-107) mmol/L BUN (7-17) mg/dL Creatinine (0.52-1.04) mg/dL Glucose (74-99) mg/dL POC Glucose (mg/dL) 128 H (70-110) mg/dL Phosphorus (2.5-4.5) mg/dL Total Protein (6.3-8.2) g/dL Albumin (3.5-5.0) g/dL 07/15/23 07/15/23 Range/Units 17:12 21:34 RBC (3.80-5.40) m/uL Hgb (11.4-16.0) gm/dL Hct (34.0-46.0) % RDW (11.5-15.5) % Neutrophils # (1.3-7.7) k/uL Lymphocytes # (1.0-4.8) k/uL APTT (22.0-30.0) sec Sodium (137-145) mmol/L Chloride (98-107) mmol/L BUN (7-17) mg/dL Creatinine (0.52-1.04) mg/dL Glucose (74-99) mg/dL POC Glucose (mg/dL) 193 H 186 H (70-110) mg/dL Phosphorus (2.5-4.5) mg/dL Total Protein (6.3-8.2) g/dL Albumin (3.5-5.0) g/dL Assessment and Plan Time with Patient: Less than 30
[2023-07-16 06:10] LABS: Glucose,Whole Blood 156 mg/dL (70-110)
[2023-07-16] MEDS: TORSEMIDE 20 MG TAB PO SCH (08:46)
--- NOTE | 2023-07-16 11:17 | P.PN ---
Subjective Patient is seen in follow-up for end-stage renal disease. She is maintained on hemodialysis on Wednesday schedule. Tolerated 2 L u ltrafiltration yesterday. Now on 6 L high flow nasal cannula. Vital signs are stable. General: No acute distress. HEENT: Head exam is unremarkable. LUNGS: No audible rhonchi or wheezes. HEART: Rate and Rhythm are regular. ABDOMEN: Nontender. EXTREMITITES: No edema. Objective - Vital Signs Vital signs: Vital Signs Temp 98.0 F 07/16/23 08:42 Pulse 57 L 07/16/23 10:34 Resp 16 07/16/23 10:34 BP 106/49 07/16/23 08:42 Pulse Ox 95 07/16/23 10:34 FiO2 Intake & Output 07/15/23 07/16/23 07/16/23 18:59 06:59 18:59 Intake Total 400 Output Total 2400 0 Balance -2000 0 Weight 67 kg Intake: Hemodialysis 400 Output: Urine 0 Hemodialysis 2400 Other: Voiding Method External Catheter External Catheter # Voids 1 - Labs CBC & Chem 7: 07/15/23 15:54 07/15/23 06:48 Labs: Abnormal Lab Results - Last 24 Hours (Table) 07/15/23 07/15/23 07/15/23 Range/Units 12:02 12:34 15:54 RBC 3.53 L (3.80-5.40) m/uL Hgb 11.1 L (11.4-16.0) gm/dL Hct 32.8 L (34.0-46.0) % RDW 21.1 H (11.5-15.5) % Neutrophils # 9.3 H (1.3-7.7) k/uL Lymphocytes # 0.4 L (1.0-4.8) k/uL APTT 96.5 H (22.0-30.0) sec POC Glucose (mg/dL) 128 H (70-110) mg/dL 07/15/23 07/15/23 07/16/23 Range/Units 17:12 21:34 06:05 RBC (3.80-5.40) m/uL Hgb (11.4-16.0) gm/dL Hct (34.0-46.0) % RDW (11.5-15.5) % Neutrophils # (1.3-7.7) k/uL Lymphocytes # (1.0-4.8) k/uL APTT (22.0-30.0) sec POC Glucose (mg/dL) 193 H 186 H 156 H (70-110) mg/dL Assessment and Plan Plan: Assessment: 1. End-stage renal disease maintained on hemodialysis on Wednesday schedule. 2. Acute hypoxic respiratory failure. No PE noted on CTA. 3. Volume overload. Improved with ultrafiltration. 4. COPD exacerbation. 5. Acute on chronic diastolic CHF with severe pulmonary hypertension. 6. Anemia of chronic kidney disease. High ferritin noted. Hemoglobin better. 7. Chronic kidney disease mineral bone disease. Phosphorus level 6.7. On PhosLo. Plan: Extra hemodialysis treatment today and another treatment tomorrow. Wean FiO2. Maintain torsemide.
[2023-07-16 11:36] LABS: Glucose,Whole Blood 184 mg/dL (70-110)
[2023-07-16 13:30] LABS: African American GFR (CKD) 9 (>60 ml/min/1.73 sqM); Anion Gap 12 mmol/L; Blood Urea Nitrogen 71 mg/dL (7-17); Calcium 8.4 mg/dL (8.4-10.2); Carbon Dioxide 28 mmol/L (22-30); Chloride 92 mmol/L (98-107); Glucose 178 mg/dL (74-99); Magnesium 1.8 mg/dL (1.6-2.3); Non-African American GFR(CKD) 8 (>60 ml/min/1.73 sqM); Potassium 4.4 mmol/L (3.5-5.1); Sodium 132 mmol/L (137-145)
[2023-07-16 13:36] LABS: Basophils % (A) 0 %; Eosinophils % (A) 0 %; HCT 33.1 % (34.0-46.0); HGB 10.5 gm/dL (11.4-16.0); Hypochromasia Slight; Lymphocytes # (A) 0.4 k/uL (1.0-4.8); Lymphocytes % (A) 3 %; MCH 28.4 pg (25.0-35.0); MCHC 31.6 g/dL (31.0-37.0); MCV 90.1 fL (80.0-100.0); Mean Platelet Volume 9.1; Monocytes # (A) 0.4 k/uL (0-1.0); Monocytes % (A) 3 %; Neutrophils # (A) 11.3 k/uL (1.3-7.7); Neutrophils % (A) 93 %; Platelet Count 232 k/uL (150-450); RBC 3.68 m/uL (3.80-5.40); RDW 14.8 % (11.5-15.5); WBC 12.1 k/uL (3.8-10.6)
--- NOTE | 2023-07-16 14:14 | P.PN ---
Subjective Progress Note Date: 07/16/23 Principal diagnosis: Acute hypoxic respiratory failure secondary to acute exacerbation of diastolic congestive heart failure and COPD exacerbation with fluid overload and end-stage renal disease This is a 68-year-old female patient with a known history of previous CVA/TIA status post bilateral carotid endarterectomies, chronic kidney disease on hemodialysis on a Wednesday schedule, hypertension, hyperlipidemia, diabetes mellitus severe pulmonary hypertension, diastolic congestive heart failure who resides in a extended care facility. She was brought into the emergency room early this morning with shortness of breath and decreased O2 saturations. This x-ray reveals mild pulmonary vascular congestion. White count 8.9. Hemoglobin 9.5. Platelets 185. D-dimer 1.74. Sodium 134. Potassium 4.8. Bicarb 25. BUN 62. Creatinine 5.58. Glucose 144. proBNP 8000. Troponin negative x 1. Viral screen negative. She is seen today in consultation in the emergency department. She is currently awake and alert. In mild respiratory distress, she is requiring 15 L via nonrebreather mask to maintain O2 saturations in the 90s. She has significant scattered rhonchi and wheezing. The patient is seen today July 15, 2023 in follow-up in the emergency department. She is more awake and alert today. Breathing easier compared to yesterday. She did undergo hemodialysis with 3.4 L of fluid removed. She is still requiring 15 L high flow nasal cannula may not O2 saturations in the upper 90s. She is afebrile. Hemodynamically stable. CT angiogram ruled out pulmonary embolism. There is airspace opacities in left lower lobe with opacified airways possible aspiration pneumonia. White count 8.4. Hemoglobin 9.6. Platelets 194. Sodium 135. Potassium 4.2. Bicarb 26. BUN 43. Creatinine 4.08. Glucose 144. She remains on DuoNeb ventilations, Symbicort, Solu-Medrol. Antibiotics in the form of Levaquin. Remains on oral diuretics. Patient was treated today on 07/16/2023, patient is doing much better today, she underwent hemodialysis yesterday, and tolerated 2 L ultrafiltration yesterday. Patient is now on 6 L nasal cannula, and O2 saturations in the mid 90s. Hardly any pulmonary symptoms patient feels much better since she had her last hemo dialysis. Hardly any shortness of breath. WBC count today is 12.1 hemoglobin is 10.5 basic metabolic profile is normal BUN is 71 creatinine 5.15 Objective - Vital Signs Vital signs: Vital Signs Temp 98.1 F 07/16/23 11:17 Pulse 57 L 07/16/23 13:07 Resp 16 07/16/23 13:10 BP 120/56 07/16/23 11:17 Pulse Ox 93 L 07/16/23 11:17 FiO2 Intake & Output 07/15/23 07/16/23 07/16/23 18:59 06:59 18:59 Intake Total 400 Output Total 2400 0 Balance -2000 0 Weight 67 kg Intake: Hemodialysis 400 Output: Urine 0 Hemodialysis 2400 Other: Voiding Method External Catheter External Catheter # Voids 1 - Exam GENERAL EXAM: Alert, 68-year-old female, on 6 L nasal cannula, not in distress HEAD: Normocephalic. EYES: Normal reaction of pupils, equal size. NOSE: Clear with pink turbinates. THROAT: No erythema or exudates. NECK: No masses, no JVD. CHEST: No chest wall deformity. LUNGS: Fine crackles at the bases with some wheezing on forced expiratory maneuver CVS: S1 and S2 normal with no audible murmur, regular rhythm. ABDOMEN: No hepatosplenomegaly, normal bowel sounds, no guarding or rigidity. SKIN: No rashes CENTRAL NERVOUS SYSTEM: Alert and oriented x 3 no gross focal deficit EXTREMITIES: No clubbing edema or cyanosis - Labs CBC & Chem 7: 07/16/23 12:56 07/16/23 12:40 Labs: Abnormal Lab Results - Last 24 Hours (Table) 07/15/23 07/15/23 07/15/23 Range/Units 15:54 17:12 21:34 WBC (3.8-10.6) k/uL RBC 3.53 L (3.80-5.40) m/uL Hgb 11.1 L (11.4-16.0) gm/dL Hct 32.8 L (34.0-46.0) % RDW 21.1 H (11.5-15.5) % Neutrophils # 9.3 H (1.3-7.7) k/uL Lymphocytes # 0.4 L (1.0-4.8) k/uL Sodium (137-145) mmol/L Chloride (98-107) mmol/L BUN (7-17) mg/dL Creatinine (0.52-1.04) mg/dL Glucose (74-99) mg/dL POC Glucose (mg/dL) 193 H 186 H (70-110) mg/dL 07/16/23 07/16/23 07/16/23 Range/Units 06:05 11:34 12:40 WBC (3.8-10.6) k/uL RBC (3.80-5.40) m/uL Hgb (11.4-16.0) gm/dL Hct (34.0-46.0) % RDW (11.5-15.5) % Neutrophils # (1.3-7.7) k/uL Lymphocytes # (1.0-4.8) k/uL Sodium 132 L (137-145) mmol/L Chloride 92 L (98-107) mmol/L BUN 71 H (7-17) mg/dL Creatinine 5.15 H (0.52-1.04) mg/dL Glucose 178 H (74-99) mg/dL POC Glucose (mg/dL) 156 H 184 H (70-110) mg/dL 07/16/23 Range/Units 12:56 WBC 12.1 H (3.8-10.6) k/uL RBC 3.68 L (3.80-5.40) m/uL Hgb 10.5 L (11.4-16.0) gm/dL Hct 33.1 L (34.0-46.0) % RDW (11.5-15.5) % Neutrophils # 11.3 H (1.3-7.7) k/uL Lymphocytes # 0.4 L (1.0-4.8) k/uL Sodium (137-145) mmol/L Chloride (98-107) mmol/L BUN (7-17) mg/dL Creatinine (0.52-1.04) mg/dL Glucose (74-99) mg/dL POC Glucose (mg/dL) (70-110) mg/dL Assessment and Plan Assessment: Impression: End-stage renal disease on hemodialysis Acute hypoxemic respiratory failure secondary to acute exacerbation diastolic congestive heart failure and COPD exacerbation fluid volume overload Severe pulmonary hypertension End stage renal disease receiving hemodialysis, patient tolerated 2 L of ultrafiltration yesterday. Remote history of smoking Recent discharge for generalized weakness with age-related physical debility History of seizure History of TIA Hyperlipidemia Hypertension Obstructive sleep apnea utilizing CPAP Iron deficiency anemia Recommendation: Patient to receive an extra hemodialysis treatment today and another 1 planned for tomorrow. Continue to wean FiO2 Continue torsemide Continue bronchodilators and steroids for COPD Continue antibiotics since her CT of the chest showed airspace opacities clinically I doubt pneumonia, the presentation is mostly a presentation of acute diastolic congestive heart failure We will continue to follow. And repeat chest x-ray in next 24 hours Time with Patient: Less than 30
--- NOTE | 2023-07-16 14:42 | P.PN ---
Subjective Progress Note Date: 07/16/23 HISTORY OF PRESENT ILLNESS: This is a 68-year-old female with a past medical history significant for hyp ertension, hyperlipidemia, carotid artery stenosis status post bilateral carotid endarterectomy, CVA/TIA, end-stage renal disease on hemodialysis, and diabetes. Patient follows in the office with Dr. Mancuso. We have been asked to see the patient in consultation for congestive heart failure. Patient examined at the bedside in the emergency room. Patient was brought to the hospital from her ECF secondary to hypoxia. Patient is somewhat lethargic at the time of examination. Patient reports shortness of breath this morning. She is currently on a nonrebreather. She states that she has been compliant with her hemodialysis and has not missed any sessions. Patient reports that she does still make urine. She denies chest pain or pressure. Patient was found to be in congestive heart failure and was started on IV diuretics. According to cardiology office notes, the patient had a cardiac catheterization performed about 4 years ago at [facility] and that revealed relatively normal coronary arteries. DIAGNOSTICS: - EKG reveals sinus bradycardia with no signs of acute ischemia. - Chest xray some interval increase in the interstitium, consider bronchitis/asthma or mild pulmonary vascular congestion.. - Laboratory data: WBC 8.9. Hemoglobin 9.5. Platelet count 185. D-dimer 1.74. Sodium 134. Potassium 4.8. BUN 62. Creatinine 5.58. Magnesium 1.8. Troponin negative x 1. proBNP 8000. - Current home cardiac medications include carvedilol 12.5 mg twice a day, nifedipine 90 mg at night, losartan 50 mg daily, Bumex 5 mg daily, Lipitor 20 mg at night, aspirin 81 mg daily. - Most recent echocardiogram obtained in July 2023 revealed ejection fraction 60 to 65%, severe pulmonary hypertension, mild mitral regurgitation, mild mitral stenosis, mild aortic stenosis -Patient underwent Lexiscan stress test in September 2021 which was negative for ischemia 07/14 Yesterday, patient underwent VQ scan which reveals intermediate probability for pulmonary embolism. Patient is seen today in follow-up and remains in the emergency center. Patient has been maintained on IV Bumex 1 mg every 12 hours. She has a negative fluid balance of 2900. Repeat blood work reveals hemoglobin 9.6. Sodium 135, potassium 4.2, BUN 43 creatinine 4.08. Patient is followed by pulmonary medicine and nephrology. Patient is off rebreather and currently on 15 L high flow nasal cannula with pulse ox 99%. Blood pressure 126/73, heart rate 58. Patient was on a nonrebreather yesterday during evaluation and was weaned down to 10 L nasal cannula. She had an episode of hypoxia last evening and oxygen was increased to 15 L. Patient underwent hemodialysis yesterday and is scheduled again today. Patient states that she is feeling okay today. She denies any chest pain. She states she is always chronically short of breath. She has occasional lightheadedness when she moves. 07/15 Patient has been on Bumex 1 mg every 12 hours and today transition to Demadex 40 mg oral daily per nephrology. CTA of the chest negative for pulmonary embolism. Opacities left lower lobe. She states she is urinating little bit. She is continued on dialysis. Breathing seems to be stable. PHYSICAL EXAM: VITAL SIGNS: Reviewed. GENERAL: Well-developed in no acute distress. Currently on a nonrebreather. HEENT: Head is normocephalic. Pupils are equal, round. Sclerae anicteric. Mucous membranes of the mouth are moist. Neck supple. LUNGS: Respirations even and unlabored. Lungs with bilateral expiratory wheezing and bibasilar crackles HEART: Regular rate and rhythm. S1 and S2 heard. ABDOMEN: Soft. Nondistended. Nontender. EXTREMITIES: Normal range of motion. No clubbing or cyanosis. Peripheral pulses intact. No lower extremity edema NEUROLOGIC: Awake and alert. ASSESSMENT: Shortness of breath Acute on chronic heart failure with preserved ejection fraction Severe pulmonary hypertension End-stage renal disease on hemodialysis, Wednesday Acute hypoxic respiratory failure, currently on a nonrebreather Acute COPD exacerbation Intermediate probability for pulmonary embolism on VQ scan-obtain CTA Hypertension Hyperlipidemia Carotid artery stenosis status post bilateral carotid endarterectomy History of TIA/CVA PLAN: No need to repeat echocardiogram as this was performed earlier this month Continue current cardiac medications Patient is cleared for discharge and may follow-up with Dr. Mancuso in 1 week. Nurse practitioner note has been reviewed by physician. Signing provider agrees with the documented findings, assessment, and plan of care documented by [employer]GER [employer] as a scribe. Objective - Vital Signs Vital signs: Vital Signs Temp 98.1 F 07/16/23 11:17 Pulse 53 L 07/16/23 11:17 Resp 16 07/16/23 11:17 BP 120/56 07/16/23 11:17 Pulse Ox 93 L 07/16/23 11:17 FiO2 Intake & Output 07/15/23 07/16/23 07/16/23 18:59 06:59 18:59 Intake Total 400 Output Total 2400 0 Balance -2000 0 Weight 67 kg Intake: Hemodialysis 400 Output: Urine 0 Hemodialysis 2400 Other: Voiding Method External Catheter External Catheter # Voids 1 - Labs CBC & Chem 7: 07/16/23 12:56 07/16/23 12:40 Labs: Abnormal Lab Results - Last 24 Hours (Table) 07/15/23 07/15/23 07/15/23 Range/Units 12:02 12:34 15:54 RBC 3.53 L (3.80-5.40) m/uL Hgb 11.1 L (11.4-16.0) gm/dL Hct 32.8 L (34.0-46.0) % RDW 21.1 H (11.5-15.5) % Neutrophils # 9.3 H (1.3-7.7) k/uL Lymphocytes # 0.4 L (1.0-4.8) k/uL APTT 96.5 H (22.0-30.0) sec POC Glucose (mg/dL) 128 H (70-110) mg/dL 07/15/23 07/15/23 07/16/23 Range/Units 17:12 21:34 06:05 RBC (3.80-5.40) m/uL Hgb (11.4-16.0) gm/dL Hct (34.0-46.0) % RDW (11.5-15.5) % Neutrophils # (1.3-7.7) k/uL Lymphocytes # (1.0-4.8) k/uL APTT (22.0-30.0) sec POC Glucose (mg/dL) 193 H 186 H 156 H (70-110) mg/dL 07/16/23 Range/Units 11:34 RBC (3.80-5.40) m/uL Hgb (11.4-16.0) gm/dL Hct (34.0-46.0) % RDW (11.5-15.5) % Neutrophils # (1.3-7.7) k/uL Lymphocytes # (1.0-4.8) k/uL APTT (22.0-30.0) sec POC Glucose (mg/dL) 184 H (70-110) mg/dL
--- NOTE | 2023-07-16 15:31 | P.PN ---
Subjective Progress Note Date: 07/16/23 48-year-old female came in with shortness of breath found to be in hypoxic respiratory failure requiring 15 L of oxygen via nonrebreather. Patient has pulmonary edema on the chest x-ray. Patient had normal systolic function in the past and history of diastolic function. Patient is end-stage renal disease patient on hemodialysis. Patient is quite weak able to answer questions alert oriented x 3 at this time when I evaluated the patient patient had severe pulmonary hypertension as well. Patient has bilateral rhonchi patient is presently receiving IV Bumex at this time. Patient's D-dimer is elevated because of which pulmonary recommended VQ scan. Patient is complaining of cough without any significant sputum production. Patient also has history of sleep apnea patient used to smoke and quit in 2009. 07/16/2023 patient is seen and evaluated in room at bedside; doing much better today, she underwent hemodialysis yesterday, and tolerated 2 L ultrafiltration yesterday. Patient is now on 6 L nasal cannula, and O2 saturations in the mid 90s. Vital signs are stable with temperature of 98.1, pulse 57, respirations 16 and blood pressure 120/56 WBC count today is 12.1 hemoglobin is 10.5 basic metabolic profile is normal BUN is 71 creatinine 5.15 Objective - Vital Signs Vital signs: Vital Signs Temp 98.0 F 07/16/23 08:42 Pulse 54 L 07/16/23 10:16 Resp 16 07/16/23 08:43 BP 106/49 07/16/23 08:42 Pulse Ox 95 07/16/23 10:00 FiO2 Intake & Output 07/15/23 07/16/23 07/16/23 18:59 06:59 18:59 Intake Total 400 Output Total 2400 0 Balance -2000 0 Weight 67 kg Intake: Hemodialysis 400 Output: Urine 0 Hemodialysis 2400 Other: Voiding Method External Catheter External Catheter # Voids 1 - Exam GENERAL: The patient is alert and oriented x3, patient is not in distress on nonrebreather well developed, well nourished. HEENT: Pupils are round and equally reacting to light. EOMI. No scleral icterus. No conjunctival pallor. Normocephalic, atraumatic. No pharyngeal erythema. No thyromegaly. CARDIOVASCULAR: S1 and S2 present. No murmurs, rubs, or gallops. PULMONARY: Bilateral crackles rhonchi and possible wheezing. ABDOMEN: Soft, nontender, nondistended, normoactive bowel sounds. No palpable organomegaly. MUSCULOSKELETAL: No joint swelling or deformity. EXTREMITIES: No cyanosis, clubbing, or pedal edema. NEUROLOGICAL: Gross neurological examination did not reveal any focal deficits. SKIN: No rashes. - Labs CBC & Chem 7: 07/16/23 12:56 07/16/23 12:40 Labs: Abnormal Lab Results - Last 24 Hours (Table) 07/15/23 07/15/23 07/15/23 Range/Units 12:02 12:34 15:54 RBC 3.53 L (3.80-5.40) m/uL Hgb 11.1 L (11.4-16.0) gm/dL Hct 32.8 L (34.0-46.0) % RDW 21.1 H (11.5-15.5) % Neutrophils # 9.3 H (1.3-7.7) k/uL Lymphocytes # 0.4 L (1.0-4.8) k/uL APTT 96.5 H (22.0-30.0) sec POC Glucose (mg/dL) 128 H (70-110) mg/dL 07/15/23 07/15/23 07/16/23 Range/Units 17:12 21:34 06:05 RBC (3.80-5.40) m/uL Hgb (11.4-16.0) gm/dL Hct (34.0-46.0) % RDW (11.5-15.5) % Neutrophils # (1.3-7.7) k/uL Lymphocytes # (1.0-4.8) k/uL APTT (22.0-30.0) sec POC Glucose (mg/dL) 193 H 186 H 156 H (70-110) mg/dL Assessment and Plan Assessment: -Acute hypoxic respiratory failure mostly because of pulmonary edema secondary to volume overload from diastolic function heart failure and also end-stage renal disease -Rule out aspiration pneumonia has been started on IV levofloxacin given patients allergies. Patient will be evaluated by speech therapy -COPD exacerbation on systemic steroids pulmonary following. -Hyponatremia secondary to secondary to end-stage renal disease patient will undergo hemodialysis today patient transitioned to oral demadex. -Type 2 diabetes mellitus patient is on systemic steroids and will need to monitor blood glucose and titrate insulin and may require long acting insulin. -CVA TIA in the past -Sleep apnea uses BiPAP at home -Coronary artery disease with cardiac catheterization in the past -Hypertension -Hyperlipidemia GI prophylaxis DVT prophylaxis: Subcutaneous heparin Full Code
[2023-07-16 16:23] LABS: Glucose,Whole Blood 177 mg/dL (70-110)
[2023-07-16 18:27] LABS: Glucose,Whole Blood 178 mg/dL (70-110)
[2023-07-16 19:57] LABS: Glucose,Whole Blood 153 mg/dL (70-110)
[2023-07-16] MEDS: MELATONIN 3 MG TABLET PO PRN (22:47)
[2023-07-17 06:01] LABS: Glucose,Whole Blood 170 mg/dL (70-110)
[2023-07-17 09:14] LABS: Anisocytosis Moderate; Basophils % (A) 0 %; Eosinophils % (A) 0 %; HCT 25.7 % (34.0-46.0); HGB 9.2 gm/dL (11.4-16.0); Lymphocytes # (A) 0.6 k/uL (1.0-4.8); Lymphocytes % (A) 10 %; MCH 33.7 pg (25.0-35.0); MCHC 35.9 g/dL (31.0-37.0); MCV 93.8 fL (80.0-100.0); Macrocytosis Slight; Mean Platelet Volume 8.4; Monocytes # (A) 0.5 k/uL (0-1.0); Monocytes % (A) 7 %; Neutrophils # (A) 5.1 k/uL (1.3-7.7); Neutrophils % (A) 82 %; Platelet Count 224 k/uL (150-450); RBC 2.74 m/uL (3.80-5.40); RDW 23.3 % (11.5-15.5); WBC 6.3 k/uL (3.8-10.6)
[2023-07-17 09:36] LABS: African American GFR (CKD) 12 (>60 ml/min/1.73 sqM); Anion Gap 10 mmol/L; Blood Urea Nitrogen 57 mg/dL (7-17); Calcium 8.1 mg/dL (8.4-10.2); Carbon Dioxide 26 mmol/L (22-30); Chloride 96 mmol/L (98-107); Glucose 150 mg/dL (74-99); Non-African American GFR(CKD) 10 (>60 ml/min/1.73 sqM); Sodium 132 mmol/L (137-145)
[2023-07-17 11:34] LABS: Glucose,Whole Blood 214 mg/dL (70-110)
--- NOTE | 2023-07-17 11:48 | P.PN ---
Subjective Progress Note Date: 07/17/23 Principal diagnosis: Acute hypoxic respiratory failure secondary to acute exacerbation of diastolic congestive heart failure and COPD exacerbation with fluid overload and end-stage renal disease This is a 68-year-old female patient with a known history of previous CVA/TIA status post bilateral carotid endarterectomies, chronic kidney disease on hemodialysis on a Wednesday schedule, hypertension, hyperlipidemia, diabetes mellitus severe pulmonary hypertension, diastolic congestive heart failure who resides in a extended care facility. She was brought into the emergency room early this morning with shortness of breath and decreased O2 saturations. This x-ray reveals mild pulmonary vascular congestion. White count 8.9. Hemoglobin 9.5. Platelets 185. D-dimer 1.74. Sodium 134. Potassium 4.8. Bicarb 25. BUN 62. Creatinine 5.58. Glucose 144. proBNP 8000. Troponin negative x 1. Viral screen negative. She is seen today in consultation in the emergency department. She is currently awake and alert. In mild respiratory distress, she is requiring 15 L via nonrebreather mask to maintain O2 saturations in the 90s. She has significant scattered rhonchi and wheezing. The patient is seen today July 15, 2023 in follow-up in the emergency department. She is more awake and alert today. Breathing easier compared to yesterday. She did undergo hemodialysis with 3.4 L of fluid removed. She is still requiring 15 L high flow nasal cannula may not O2 saturations in the upper 90s. She is afebrile. Hemodynamically stable. CT angiogram ruled out pulmonary embolism. There is airspace opacities in left lower lobe with opacified airways possible aspiration pneumonia. White count 8.4. Hemoglobin 9.6. Platelets 194. Sodium 135. Potassium 4.2. Bicarb 26. BUN 43. Creatinine 4.08. Glucose 144. She remains on DuoNeb ventilations, Symbicort, Solu-Medrol. Antibiotics in the form of Levaquin. Remains on oral diuretics. Patient was treated today on 07/16/2023, patient is doing much better today, she underwent hemodialysis yesterday, and tolerated 2 L ultrafiltration yesterday. Patient is now on 6 L nasal cannula, and O2 saturations in the mid 90s. Hardly any pulmonary symptoms patient feels much better since she had her last hemo dialysis. Hardly any shortness of breath. WBC count today is 12.1 hemoglobin is 10.5 basic metabolic profile is normal BUN is 71 creatinine 5.15 Patient was evaluated today on 07/17/2023, patient is doing great, however she is back to 8 L nasal cannula with marginal O2 saturation, patient is scheduled to have hemodialysis today, and I think that will help her oxygenation, patient clearly goes into fluid overload easily and she gets much better after hemodialysis. The patient is relatively asymptomatic denies being short of breath, her CBC is normal basic metabolic profile is normal BUN is 57 creatinine 4.15 Objective - Vital Signs Vital signs: Vital Signs Temp 97.7 F 07/17/23 07:46 Pulse 56 L 07/17/23 11:39 Resp 16 07/17/23 08:05 BP 94/56 07/17/23 07:46 Pulse Ox 91 L 07/17/23 08:25 FiO2 Intake & Output 07/16/23 07/17/23 07/17/23 18:59 06:59 18:59 Intake Total 1018 180 118 Output Total 1900 40 0 Balance -882 140 118 Intake: Oral 118 180 118 Hemodialysis 900 Output: Urine 40 0 Hemodialysis 1900 Other: Voiding Method External Catheter Bedside Commode Bedside Commode Diaper Diaper # Voids 0 - Exam GENERAL EXAM: Alert, 68-year-old female, not in distress on 8 L nasal cannula HEAD: Normocephalic. EYES: Normal reaction of pupils, equal size. NOSE: Clear with pink turbinates. THROAT: No erythema or exudates. NECK: No masses, no JVD. CHEST: No chest wall deformity. LUNGS: Crackles at the bases persist. CVS: S1 and S2 normal with no audible murmur, regular rhythm. ABDOMEN: No hepatosplenomegaly, normal bowel sounds, no guarding or rigidity. SKIN: No rashes CENTRAL NERVOUS SYSTEM: Alert and oriented x 3 no gross focal deficit EXTREMITIES: No clubbing edema or cyanosis - Labs CBC & Chem 7: 07/17/23 07:41 07/17/23 07:41 Labs: Abnormal Lab Results - Last 24 Hours (Table) 07/16/23 07/16/23 07/16/23 Range/Units 12:40 12:56 16:22 WBC 12.1 H (3.8-10.6) k/uL RBC 3.68 L (3.80-5.40) m/uL Hgb 10.5 L (11.4-16.0) gm/dL Hct 33.1 L (34.0-46.0) % RDW (11.5-15.5) % Neutrophils # 11.3 H (1.3-7.7) k/uL Lymphocytes # 0.4 L (1.0-4.8) k/uL Sodium 132 L (137-145) mmol/L Chloride 92 L (98-107) mmol/L BUN 71 H (7-17) mg/dL Creatinine 5.15 H (0.52-1.04) mg/dL Glucose 178 H (74-99) mg/dL POC Glucose (mg/dL) 177 H (70-110) mg/dL Calcium (8.4-10.2) mg/dL 07/16/23 07/16/23 07/17/23 Range/Units 18:25 19:56 05:59 WBC (3.8-10.6) k/uL RBC (3.80-5.40) m/uL Hgb (11.4-16.0) gm/dL Hct (34.0-46.0) % RDW (11.5-15.5) % Neutrophils # (1.3-7.7) k/uL Lymphocytes # (1.0-4.8) k/uL Sodium (137-145) mmol/L Chloride (98-107) mmol/L BUN (7-17) mg/dL Creatinine (0.52-1.04) mg/dL Glucose (74-99) mg/dL POC Glucose (mg/dL) 178 H 153 H 170 H (70-110) mg/dL Calcium (8.4-10.2) mg/dL 07/17/23 07/17/23 07/17/23 Range/Units 07:41 07:41 11:32 WBC (3.8-10.6) k/uL RBC 2.74 L (3.80-5.40) m/uL Hgb 9.2 L (11.4-16.0) gm/dL Hct 25.7 L (34.0-46.0) % RDW 23.3 H (11.5-15.5) % Neutrophils # (1.3-7.7) k/uL Lymphocytes # 0.6 L (1.0-4.8) k/uL Sodium 132 L (137-145) mmol/L Chloride 96 L (98-107) mmol/L BUN 57 H (7-17) mg/dL Creatinine 4.15 H (0.52-1.04) mg/dL Glucose 150 H (74-99) mg/dL POC Glucose (mg/dL) 214 H (70-110) mg/dL Calcium 8.1 L (8.4-10.2) mg/dL Assessment and Plan Assessment: Impression: End-stage renal disease on hemodialysis Acute hypoxemic respiratory failure secondary to acute exacerbation diastolic congestive heart failure and COPD exacerbation fluid volume overload Severe pulmonary hypertension End stage renal disease receiving hemodialysis, patient tolerated 2 L of ultrafiltration yesterday. Remote history of smoking Recent discharge for generalized weakness with age-related physical debility History of seizure History of TIA Hyperlipidemia Hypertension Obstructive sleep apnea utilizing CPAP Iron deficiency anemia Recommendation: Continue hemodialysis/ultrafiltration Continue to wean FiO2, presently on 8 L high flow cannula Continue torsemide Continue bronchodilators and steroids for COPD Continue antibiotics since her CT of the chest showed airspace opacities clinically I doubt pneumonia, the presentation is mostly a presentation of acute diastolic congestive heart failure We will continue to follow. Time with Patient: Less than 30
--- NOTE | 2023-07-17 13:19 | P.PN ---
Subjective Progress Note Date: 07/17/23 Patient is seen in follow-up for end-stage renal disease. She is maintained on hemodialysis on Wednesday schedule. Seen while on HD today. Vital signs are stable. General: No acute distress. HEENT: Head exam is unremarkable. LUNGS: No audible rhonchi or wheezes. HEART: Rate and Rhythm are regular. ABDOMEN: Nontender. EXTREMITITES: No edema. Objective - Vital Signs Vital signs: Vital Signs Temp 97.7 F 07/17/23 07:46 Pulse 60 07/17/23 08:35 Resp 16 07/17/23 08:05 BP 94/56 07/17/23 07:46 Pulse Ox 91 L 07/17/23 08:25 FiO2 Intake & Output 07/16/23 07/17/23 07/17/23 18:59 06:59 18:59 Intake Total 1018 180 118 Output Total 1900 40 0 Balance -882 140 118 Intake: Oral 118 180 118 Hemodialysis 900 Output: Urine 40 0 Hemodialysis 1900 Other: Voiding Method External Catheter Bedside Commode Diaper # Voids 0 - Labs CBC & Chem 7: 07/17/23 07:41 07/17/23 07:41 Labs: Abnormal Lab Results - Last 24 Hours (Table) 07/16/23 07/16/23 07/16/23 Range/Units 11:34 12:40 12:56 WBC 12.1 H (3.8-10.6) k/uL RBC 3.68 L (3.80-5.40) m/uL Hgb 10.5 L (11.4-16.0) gm/dL Hct 33.1 L (34.0-46.0) % RDW (11.5-15.5) % Neutrophils # 11.3 H (1.3-7.7) k/uL Lymphocytes # 0.4 L (1.0-4.8) k/uL Sodium 132 L (137-145) mmol/L Chloride 92 L (98-107) mmol/L BUN 71 H (7-17) mg/dL Creatinine 5.15 H (0.52-1.04) mg/dL Glucose 178 H (74-99) mg/dL POC Glucose (mg/dL) 184 H (70-110) mg/dL Calcium (8.4-10.2) mg/dL 05/10/24 05/10/24 05/10/24 Range/Units 16:22 18:25 19:56 WBC (3.8-10.6) k/uL RBC (3.80-5.40) m/uL Hgb (11.4-16.0) gm/dL Hct (34.0-46.0) % RDW (11.5-15.5) % Neutrophils # (1.3-7.7) k/uL Lymphocytes # (1.0-4.8) k/uL Sodium (137-145) mmol/L Chloride (98-107) mmol/L BUN (7-17) mg/dL Creatinine (0.52-1.04) mg/dL Glucose (74-99) mg/dL POC Glucose (mg/dL) 177 H 178 H 153 H (70-110) mg/dL Calcium (8.4-10.2) mg/dL 07/17/23 07/17/23 07/17/23 Range/Units 05:59 07:41 07:41 WBC (3.8-10.6) k/uL RBC 2.74 L (3.80-5.40) m/uL Hgb 9.2 L (11.4-16.0) gm/dL Hct 25.7 L (34.0-46.0) % RDW 23.3 H (11.5-15.5) % Neutrophils # (1.3-7.7) k/uL Lymphocytes # 0.6 L (1.0-4.8) k/uL Sodium 132 L (137-145) mmol/L Chloride 96 L (98-107) mmol/L BUN 57 H (7-17) mg/dL Creatinine 4.15 H (0.52-1.04) mg/dL Glucose 150 H (74-99) mg/dL POC Glucose (mg/dL) 170 H (70-110) mg/dL Calcium 8.1 L (8.4-10.2) mg/dL Assessment and Plan Plan: Assessment: 1. End-stage renal disease maintained on hemodialysis on TTS schedule. 2. Acute hypoxic respiratory failure. No PE noted on CTA. 3. Volume overload. Improved with ultrafiltration. 4. COPD exacerbation. 5. Acute on chronic diastolic CHF with severe pulmonary hypertension. 6. Anemia of chronic kidney disease. High ferritin noted. Hemoglobin better. 7. Chronic kidney disease mineral bone disease. Phosphorus level 6.7. On PhosLo. Plan: Seen while receiving HD today. Wean FiO2. Maintain torsemide. UF 2L today as tolerated, BP on soft side.
[2023-07-17] MEDS: LEVOFLOXACIN 250MG-D5W PMX 250 MG in DEXTROSE/WATER 1 50ML.BAG IVPB SCH (13:42)
--- NOTE | 2023-07-17 15:09 | P.PN ---
Subjective Progress Note Date: 07/17/23 HISTORY OF PRESENT ILLNESS: This is a 68-year-old female with a past medical history significant for hyp ertension, hyperlipidemia, carotid artery stenosis status post bilateral carotid endarterectomy, CVA/TIA, end-stage renal disease on hemodialysis, and diabetes. Patient follows in the office with Dr. Mancuso. We have been asked to see the patient in consultation for congestive heart failure. Patient examined at the bedside in the emergency room. Patient was brought to the hospital from her ECF secondary to hypoxia. Patient is somewhat lethargic at the time of examination. Patient reports shortness of breath this morning. She is currently on a nonrebreather. She states that she has been compliant with her hemodialysis and has not missed any sessions. Patient reports that she does still make urine. She denies chest pain or pressure. Patient was found to be in congestive heart failure and was started on IV diuretics. According to cardiology office notes, the patient had a cardiac catheterization performed about 4 years ago at [facility] and that revealed relatively normal coronary arteries. DIAGNOSTICS: - EKG reveals sinus bradycardia with no signs of acute ischemia. - Chest xray some interval increase in the interstitium, consider bronchitis/asthma or mild pulmonary vascular congestion.. - Laboratory data: WBC 8.9. Hemoglobin 9.5. Platelet count 185. D-dimer 1.74. Sodium 134. Potassium 4.8. BUN 62. Creatinine 5.58. Magnesium 1.8. Troponin negative x 1. proBNP 8000. - Current home cardiac medications include carvedilol 12.5 mg twice a day, nifedipine 90 mg at night, losartan 50 mg daily, Bumex 5 mg daily, Lipitor 20 mg at night, aspirin 81 mg daily. - Most recent echocardiogram obtained in July 2023 revealed ejection fraction 60 to 65%, severe pulmonary hypertension, mild mitral regurgitation, mild mitral stenosis, mild aortic stenosis -Patient underwent Lexiscan stress test in September 2021 which was negative for ischemia 07/14 Yesterday, patient underwent VQ scan which reveals intermediate probability for pulmonary embolism. Patient is seen today in follow-up and remains in the emergency center. Patient has been maintained on IV Bumex 1 mg every 12 hours. She has a negative fluid balance of 2900. Repeat blood work reveals hemoglobin 9.6. Sodium 135, potassium 4.2, BUN 43 creatinine 4.08. Patient is followed by pulmonary medicine and nephrology. Patient is off rebreather and currently on 15 L high flow nasal cannula with pulse ox 99%. Blood pressure 126/73, heart rate 58. Patient was on a nonrebreather yesterday during evaluation and was weaned down to 10 L nasal cannula. She had an episode of hypoxia last evening and oxygen was increased to 15 L. Patient underwent hemodialysis yesterday and is scheduled again today. Patient states that she is feeling okay today. She denies any chest pain. She states she is always chronically short of breath. She has occasional lightheadedness when she moves. 07/15 Patient has been on Bumex 1 mg every 12 hours and today transition to Demadex 40 mg oral daily per nephrology. CTA of the chest negative for pulmonary embolism. Opacities left lower lobe. She states she is urinating little bit. She is continued on dialysis. Breathing seems to be stable. 07/16 Patient is seen today in follow-up. She is on hemodialysis today with goal of 2 L removed. Blood pressure 94/56, heart rate 54, pulse ox was 89% on 6 L and 91% on 8 L. Hemoglobin 9.2. Sodium 132, potassium 4, BUN 57 creatinine 4.1. PHYSICAL EXAM: VITAL SIGNS: Reviewed. GENERAL: Well-developed in no acute distress. Currently on a nonrebreather. HEENT: Head is normocephalic. Pupils are equal, round. Sclerae anicteric. Mucous membranes of the mouth are moist. Neck supple. LUNGS: Respirations even and unlabored. Lungs with bilateral expiratory wheezing and bibasilar crackles HEART: Regular rate and rhythm. S1 and S2 heard. ABDOMEN: Soft. Nondistended. Nontender. EXTREMITIES: Peripheral pulses intact. No lower extremity edema NEUROLOGIC: Awake and alert. ASSESSMENT: Shortness of breath Acute on chronic heart failure with preserved ejection fraction Severe pulmonary hypertension End-stage renal disease on hemodialysis, Wednesday Acute hypoxic respiratory failure, currently on a nonrebreather Acute COPD exacerbation Intermediate probability for pulmonary embolism on VQ scan-obtain CTA Hypertension Hyperlipidemia Carotid artery stenosis status post bilateral carotid endarterectomy History of TIA/CVA PLAN: No need to repeat echocardiogram as this was performed earlier this month Continue current cardiac medications Patient is cleared for discharge and may follow-up with Dr. Mancuso in 1 week. Cardiology will sign off this case and follow on an as-needed basis. Please reconsult for any new concerns. Patient may follow-up in the office in one to 2 weeks. Nurse practitioner note has been reviewed by physician. Signing provider agrees with the documented findings, assessment, and plan of care documented by DIRECTOR OF ONLINE EDUCATION as a scribe. Objective - Vital Signs Vital signs: Vital Signs Temp 97.7 F 07/17/23 07:46 Pulse 60 07/17/23 08:35 Resp 16 07/17/23 08:05 BP 94/56 07/17/23 07:46 Pulse Ox 91 L 07/17/23 08:25 FiO2 Intake & Output 07/16/23 07/17/23 07/17/23 18:59 06:59 18:59 Intake Total 1018 180 118 Output Total 1900 40 0 Balance -882 140 118 Intake: Oral 118 180 118 Hemodialysis 900 Output: Urine 40 0 Hemodialysis 1900 Other: Voiding Method External Catheter Bedside Commode Bedside Commode Diaper Diaper # Voids 0 - Labs CBC & Chem 7: 07/17/23 07:41 07/17/23 07:41 Labs: Abnormal Lab Results - Last 24 Hours (Table) 07/16/23 07/16/23 07/16/23 Range/Units 11:34 12:40 12:56 WBC 12.1 H (3.8-10.6) k/uL RBC 3.68 L (3.80-5.40) m/uL Hgb 10.5 L (11.4-16.0) gm/dL Hct 33.1 L (34.0-46.0) % RDW (11.5-15.5) % Neutrophils # 11.3 H (1.3-7.7) k/uL Lymphocytes # 0.4 L (1.0-4.8) k/uL Sodium 132 L (137-145) mmol/L Chloride 92 L (98-107) mmol/L BUN 71 H (7-17) mg/dL Creatinine 5.15 H (0.52-1.04) mg/dL Glucose 178 H (74-99) mg/dL POC Glucose (mg/dL) 184 H (70-110) mg/dL Calcium (8.4-10.2) mg/dL 07/16/23 07/16/23 07/16/23 Range/Units 16:22 18:25 19:56 WBC (3.8-10.6) k/uL RBC (3.80-5.40) m/uL Hgb (11.4-16.0) gm/dL Hct (34.0-46.0) % RDW (11.5-15.5) % Neutrophils # (1.3-7.7) k/uL Lymphocytes # (1.0-4.8) k/uL Sodium (137-145) mmol/L Chloride (98-107) mmol/L BUN (7-17) mg/dL Creatinine (0.52-1.04) mg/dL Glucose (74-99) mg/dL POC Glucose (mg/dL) 177 H 178 H 153 H (70-110) mg/dL Calcium (8.4-10.2) mg/dL 07/17/23 07/17/23 07/17/23 Range/Units 05:59 07:41 07:41 WBC (3.8-10.6) k/uL RBC 2.74 L (3.80-5.40) m/uL Hgb 9.2 L (11.4-16.0) gm/dL Hct 25.7 L (34.0-46.0) % RDW 23.3 H (11.5-15.5) % Neutrophils # (1.3-7.7) k/uL Lymphocytes # 0.6 L (1.0-4.8) k/uL Sodium 132 L (137-145) mmol/L Chloride 96 L (98-107) mmol/L BUN 57 H (7-17) mg/dL Creatinine 4.15 H (0.52-1.04) mg/dL Glucose 150 H (74-99) mg/dL POC Glucose (mg/dL) 170 H (70-110) mg/dL Calcium 8.1 L (8.4-10.2) mg/dL
--- NOTE | 2023-07-17 15:28 | P.PN ---
Subjective Progress Note Date: 07/17/23 48-year-old female came in with shortness of breath found to be in hypoxic respiratory failure requiring 15 L of oxygen via nonrebreather. Patient has pulmonary edema on the chest x-ray. Patient had normal systolic function in the past and history of diastolic function. Patient is end-stage renal disease patient on hemodialysis. Patient is quite weak able to answer questions alert oriented x 3 at this time when I evaluated the patient patient had severe pulmonary hypertension as well. Patient has bilateral rhonchi patient is presently receiving IV Bumex at this time. Patient's D-dimer is elevated because of which pulmonary recommended VQ scan. Patient is complaining of cough without any significant sputum production. Patient also has history of sleep apnea patient used to smoke and quit in 2009. 07/16/2023 patient is seen and evaluated in room at bedside; doing much better today, she underwent hemodialysis yesterday, and tolerated 2 L ultrafiltration yesterday. Patient is now on 6 L nasal cannula, and O2 saturations in the mid 90s. Vital signs are stable with temperature of 98.1, pulse 57, respirations 16 and blood pressure 120/56 WBC count today is 12.1 hemoglobin is 10.5 basic metabolic profile is normal BUN is 71 creatinine 5.15 07/17/2023 -- patient is seen and evaluated in room at bedside; reports she is doing great, however she is back to 8 L nasal cannula with marginal O2 saturation Vital signs are reviewed temperature 97.7, pulse 56, respirations 16 and blood pressure of 94/56 patient is scheduled to have hemodialysis today, and I think that will help her oxygenation, patient clearly goes into fluid overload easily and she gets much better after hemodialysis. The patient is relatively asymptomatic denies being short of breath, her CBC is normal basic metabolic profile is normal BUN is 57 creatinine 4.15 Continue hemodialysis/ultrafiltration Continue torsemide Continue bronchodilators and steroids for COPD Continue antibiotics since her CT of the chest showed airspace opacities clinically I doubt pneumonia, the presentation is mostly a presentation of acute diastolic congestive heart failure Objective - Vital Signs Vital signs: Vital Signs Temp 97.7 F 07/17/23 07:46 Pulse 60 07/17/23 08:35 Resp 16 07/17/23 08:05 BP 94/56 07/17/23 07:46 Pulse Ox 91 L 07/17/23 08:25 FiO2 Intake & Output 07/16/23 07/17/23 07/17/23 18:59 06:59 18:59 Intake Total 1018 180 118 Output Total 1900 40 0 Balance -882 140 118 Intake: Oral 118 180 118 Hemodialysis 900 Output: Urine 40 0 Hemodialysis 1900 Other: Voiding Method External Catheter Bedside Commode Diaper # Voids 0 - Exam GENERAL: The patient is alert and oriented x3, patient is not in distress on nonrebreather well developed, well nourished. HEENT: Pupils are round and equally reacting to light. EOMI. No scleral icterus. No conjunctival pallor. Normocephalic, atraumatic. No pharyngeal erythema. No thyromegaly. CARDIOVASCULAR: S1 and S2 present. No murmurs, rubs, or gallops. PULMONARY: Bilateral crackles rhonchi and possible wheezing. ABDOMEN: Soft, nontender, nondistended, normoactive bowel sounds. No palpable organomegaly. MUSCULOSKELETAL: No joint swelling or deformity. EXTREMITIES: No cyanosis, clubbing, or pedal edema. NEUROLOGICAL: Gross neurological examination did not reveal any focal deficits. SKIN: No rashes. - Labs CBC & Chem 7: 07/17/23 07:41 07/17/23 07:41 Labs: Abnormal Lab Results - Last 24 Hours (Table) 07/16/23 07/16/23 07/16/23 Range/Units 11:34 12:40 12:56 WBC 12.1 H (3.8-10.6) k/uL RBC 3.68 L (3.80-5.40) m/uL Hgb 10.5 L (11.4-16.0) gm/dL Hct 33.1 L (34.0-46.0) % RDW (11.5-15.5) % Neutrophils # 11.3 H (1.3-7.7) k/uL Lymphocytes # 0.4 L (1.0-4.8) k/uL Sodium 132 L (137-145) mmol/L Chloride 92 L (98-107) mmol/L BUN 71 H (7-17) mg/dL Creatinine 5.15 H (0.52-1.04) mg/dL Glucose 178 H (74-99) mg/dL POC Glucose (mg/dL) 184 H (70-110) mg/dL Calcium (8.4-10.2) mg/dL 07/16/23 07/16/23 07/16/23 Range/Units 16:22 18:25 19:56 WBC (3.8-10.6) k/uL RBC (3.80-5.40) m/uL Hgb (11.4-16.0) gm/dL Hct (34.0-46.0) % RDW (11.5-15.5) % Neutrophils # (1.3-7.7) k/uL Lymphocytes # (1.0-4.8) k/uL Sodium (137-145) mmol/L Chloride (98-107) mmol/L BUN (7-17) mg/dL Creatinine (0.52-1.04) mg/dL Glucose (74-99) mg/dL POC Glucose (mg/dL) 177 H 178 H 153 H (70-110) mg/dL Calcium (8.4-10.2) mg/dL 07/17/23 07/17/23 07/17/23 Range/Units 05:59 07:41 07:41 WBC (3.8-10.6) k/uL RBC 2.74 L (3.80-5.40) m/uL Hgb 9.2 L (11.4-16.0) gm/dL Hct 25.7 L (34.0-46.0) % RDW 23.3 H (11.5-15.5) % Neutrophils # (1.3-7.7) k/uL Lymphocytes # 0.6 L (1.0-4.8) k/uL Sodium 132 L (137-145) mmol/L Chloride 96 L (98-107) mmol/L BUN 57 H (7-17) mg/dL Creatinine 4.15 H (0.52-1.04) mg/dL Glucose 150 H (74-99) mg/dL POC Glucose (mg/dL) 170 H (70-110) mg/dL Calcium 8.1 L (8.4-10.2) mg/dL Assessment and Plan Assessment: -Acute hypoxic respiratory failure mostly because of pulmonary edema secondary to volume overload from diastolic function heart failure and also end-stage renal disease -Rule out aspiration pneumonia has been started on IV levofloxacin given patients allergies. Patient will be evaluated by speech therapy -COPD exacerbation on systemic steroids pulmonary following. -Hyponatremia secondary to secondary to end-stage renal disease patient will undergo hemodialysis today patient transitioned to oral demadex. -Type 2 diabetes mellitus patient is on systemic steroids and will need to monitor blood glucose and titrate insulin and may require long acting insulin. -CVA TIA in the past -Sleep apnea uses BiPAP at home -Coronary artery disease with cardiac catheterization in the past -Hypertension -Hyperlipidemia GI prophylaxis DVT prophylaxis: Subcutaneous heparin Full Code
[2023-07-17 16:17] LABS: Glucose,Whole Blood 183 mg/dL (70-110)
[2023-07-17 20:07] LABS: Glucose,Whole Blood 240 mg/dL (70-110)
[2023-07-18 06:01] LABS: Glucose,Whole Blood 103 mg/dL (70-110)
[2023-07-18 10:29] LABS: African American GFR (CKD) 11 (>60 ml/min/1.73 sqM); Anion Gap 10 mmol/L; Blood Urea Nitrogen 53 mg/dL (7-17); Calcium 8.7 mg/dL (8.4-10.2); Carbon Dioxide 30 mmol/L (22-30); Chloride 94 mmol/L (98-107); Glucose 106 mg/dL (74-99); Non-African American GFR(CKD) 10 (>60 ml/min/1.73 sqM); Potassium 3.8 mmol/L (3.5-5.1); Sodium 134 mmol/L (137-145)
[2023-07-18 10:34] LABS: Basophils % (A) 0 %; Eosinophils # (A) 0.1 k/uL (0-0.7); Eosinophils % (A) 1 %; HCT 32.8 % (34.0-46.0); HGB 10.6 gm/dL (11.4-16.0); Hypochromasia Slight; Lymphocytes # (A) 1.1 k/uL (1.0-4.8); Lymphocytes % (A) 15 %; MCH 29.6 pg (25.0-35.0); MCHC 32.4 g/dL (31.0-37.0); MCV 91.5 fL (80.0-100.0); Mean Platelet Volume 8.6; Monocytes # (A) 0.6 k/uL (0-1.0); Monocytes % (A) 7 %; Neutrophils # (A) 5.8 k/uL (1.3-7.7); Neutrophils % (A) 76 %; Platelet Count 220 k/uL (150-450); RBC 3.58 m/uL (3.80-5.40); RDW 15.4 % (11.5-15.5); WBC 7.7 k/uL (3.8-10.6)
[2023-07-18 11:57] LABS: Glucose,Whole Blood 212 mg/dL (70-110)
--- NOTE | 2023-07-18 12:00 | P.PN ---
Subjective Progress Note Date: 07/18/23 Patient is seen in follow-up for end-stage renal disease. She is maintained on hemodialysis on Wednesday schedule. Breathing improved today. Does not beleive she needs an extra HD treatment tomorrow. Vital signs are stable. General: No acute distress. HEENT: Head exam is unremarkable. LUNGS: No audible rhonchi or wheezes. HEART: Rate and Rhythm are regular. ABDOMEN: Nontender. EXTREMITITES: No edema. Objective - Vital Signs Vital signs: Vital Signs Temp 98.4 F 07/18/23 09:35 Pulse 56 L 07/18/23 09:35 Resp 17 07/18/23 09:51 BP 114/65 07/18/23 09:35 Pulse Ox 92 L 07/18/23 09:45 FiO2 Intake & Output 07/17/23 07/18/23 07/18/23 18:59 06:59 18:59 Intake Total 736 Output Total 2500 Balance -1764 Weight 63.5 kg Intake: Oral 236 Hemodialysis 500 Output: Urine 0 Hemodialysis 2500 Other: Voiding Method Bedside Commode Bedside Commode Bedside Commode Diaper Diaper Diaper # Voids 0 # Bowel Movements 1 - Labs CBC & Chem 7: 07/18/23 09:17 07/18/23 09:17 Labs: Abnormal Lab Results - Last 24 Hours (Table) 07/17/23 07/17/23 07/17/23 Range/Units 11:32 16:16 20:06 POC Glucose (mg/dL) 214 H 183 H 240 H (70-110) mg/dL Assessment and Plan Plan: Assessment: 1. End-stage renal disease maintained on hemodialysis on TTS schedule. 2. Acute hypoxic respiratory failure. No PE noted on CTA. 3. Volume overload. Improved with ultrafiltration. 4. COPD exacerbation. 5. Acute on chronic diastolic CHF with severe pulmonary hypertension. 6. Anemia of chronic kidney disease. High ferritin noted. Hemoglobin better. 7. Chronic kidney disease mineral bone disease. Phosphorus level 6.7. On PhosLo. Plan: SContinue HD TTS schedule. If breathing not improved tomorrow then may add extra session of HD. Wean FiO2. Maintain torsemide.
--- NOTE | 2023-07-18 13:28 | P.PN ---
Subjective Progress Note Date: 07/18/23 Principal diagnosis: Acute hypoxic respiratory failure secondary to acute exacerbation of diastolic congestive heart failure and COPD exacerbation with fluid overload and end-stage renal disease This is a 68-year-old female patient with a known history of previous CVA/TIA status post bilateral carotid endarterectomies, chronic kidney disease on hemodialysis on a Wednesday schedule, hypertension, hyperlipidemia, diabetes mellitus severe pulmonary hypertension, diastolic congestive heart failure who resides in a extended care facility. She was brought into the emergency room early this morning with shortness of breath and decreased O2 saturations. This x-ray reveals mild pulmonary vascular congestion. White count 8.9. Hemoglobin 9.5. Platelets 185. D-dimer 1.74. Sodium 134. Potassium 4.8. Bicarb 25. BUN 62. Creatinine 5.58. Glucose 144. proBNP 8000. Troponin negative x 1. Viral screen negative. She is seen today in consultation in the emergency department. She is currently awake and alert. In mild respiratory distress, she is requiring 15 L via nonrebreather mask to maintain O2 saturations in the 90s. She has significant scattered rhonchi and wheezing. The patient is seen today July 15, 2023 in follow-up in the emergency department. She is more awake and alert today. Breathing easier compared to yesterday. She did undergo hemodialysis with 3.4 L of fluid removed. She is still requiring 15 L high flow nasal cannula may not O2 saturations in the upper 90s. She is afebrile. Hemodynamically stable. CT angiogram ruled out pulmonary embolism. There is airspace opacities in left lower lobe with opacified airways possible aspiration pneumonia. White count 8.4. Hemoglobin 9.6. Platelets 194. Sodium 135. Potassium 4.2. Bicarb 26. BUN 43. Creatinine 4.08. Glucose 144. She remains on DuoNeb ventilations, Symbicort, Solu-Medrol. Antibiotics in the form of Levaquin. Remains on oral diuretics. Patient was treated today on 07/16/2023, patient is doing much better today, she underwent hemodialysis yesterday, and tolerated 2 L ultrafiltration yesterday. Patient is now on 6 L nasal cannula, and O2 saturations in the mid 90s. Hardly any pulmonary symptoms patient feels much better since she had her last hemo dialysis. Hardly any shortness of breath. WBC count today is 12.1 hemoglobin is 10.5 basic metabolic profile is normal BUN is 71 creatinine 5.15 Patient was evaluated today on 07/17/2023, patient is doing great, however she is back to 8 L nasal cannula with marginal O2 saturation, patient is scheduled to have hemodialysis today, and I think that will help her oxygenation, patient clearly goes into fluid overload easily and she gets much better after hemodialysis. The patient is relatively asymptomatic denies being short of breath, her CBC is normal basic metabolic profile is normal BUN is 57 creatinine 4.15 Patient was evaluated today on 07/18/2023, patient had hemodialysis yesterday, and she is now down to 4 L nasal cannula, patient is steadily improving, feeling better, breathing easierI am planning a follow-up chest x-ray on this patient in the morning, in the meantime the patient is clinically improving and doing well. She is responding well to hemodialysis. WBC count today is 7.7 hemoglobin is 10.6 basic metabolic profile is normal BUN is 53 creatinine 4.3 is Objective - Vital Signs Vital signs: Vital Signs Temp 97.9 F 07/18/23 12:00 Pulse 57 L 07/18/23 12:00 Resp 17 07/18/23 09:51 BP 114/65 07/18/23 09:35 Pulse Ox 90 L 07/18/23 12:00 FiO2 Intake & Output 07/17/23 07/18/23 07/18/23 18:59 06:59 18:59 Intake Total 736 358 Output Total 2500 Balance -1764 358 Weight 63.5 kg Intake: Oral 236 358 Hemodialysis 500 Output: Urine 0 Hemodialysis 2500 Other: Voiding Method Bedside Commode Bedside Commode Bedside Commode Diaper Diaper Diaper # Voids 0 # Bowel Movements 1 1 - Exam GENERAL EXAM: Alert, 68-year-old female, not in distress on 4 L nasal cannula HEAD: Normocephalic. EYES: Normal reaction of pupils, equal size. NOSE: Clear with pink turbinates. THROAT: No erythema or exudates. NECK: No masses, no JVD. CHEST: No chest wall deformity. LUNGS: minimal crackles bibasilar. CVS: S1 and S2 normal with no audible murmur, regular rhythm. ABDOMEN: No hepatosplenomegaly, normal bowel sounds, no guarding or rigidity. SKIN: No rashes CENTRAL NERVOUS SYSTEM: Alert and oriented x 3 no gross focal deficit EXTREMITIES: No clubbing edema or cyanosis - Labs CBC & Chem 7: 07/18/23 09:17 07/18/23 09:17 Labs: Abnormal Lab Results - Last 24 Hours (Table) 07/17/23 07/17/23 07/18/23 Range/Units 16:16 20:06 09:17 RBC 3.58 L (3.80-5.40) m/uL Hgb 10.6 L (11.4-16.0) gm/dL Hct 32.8 L (34.0-46.0) % Sodium (137-145) mmol/L Chloride (98-107) mmol/L BUN (7-17) mg/dL Creatinine (0.52-1.04) mg/dL Glucose (74-99) mg/dL POC Glucose (mg/dL) 183 H 240 H (70-110) mg/dL 07/18/23 07/18/23 Range/Units 09:17 11:55 RBC (3.80-5.40) m/uL Hgb (11.4-16.0) gm/dL Hct (34.0-46.0) % Sodium 134 L (137-145) mmol/L Chloride 94 L (98-107) mmol/L BUN 53 H (7-17) mg/dL Creatinine 4.30 H (0.52-1.04) mg/dL Glucose 106 H (74-99) mg/dL POC Glucose (mg/dL) 212 H (70-110) mg/dL Assessment and Plan Assessment: Impression: End-stage renal disease on hemodialysis Acute hypoxemic respiratory failure secondary to acute exacerbation diastolic congestive heart failure and COPD exacerbation fluid volume overload Severe pulmonary hypertension End stage renal disease receiving hemodialysis, patient tolerated 2 L of ultrafiltration yesterday. Remote history of smoking Recent discharge for generalized weakness with age-related physical debility History of seizure History of TIA Hyperlipidemia Hypertension Obstructive sleep apnea utilizing CPAP Iron deficiency anemia Recommendation: Continue hemodialysis/ultrafiltration Continue to wean FiO2, presently on 4 L nasal cannula from 10 L few days ago. Continue torsemide Continue bronchodilators and steroids for COPD Repeat chest x-ray in a.m., Consider discharge planning in the next 24 to 48 hours. We will continue to follow. Time with Patient: Less than 30
[2023-07-18 16:18] LABS: Glucose,Whole Blood 177 mg/dL (70-110)
--- NOTE | 2023-07-18 17:39 | P.PN ---
Subjective Progress Note Date: 07/18/23 48-year-old female came in with shortness of breath found to be in hypoxic respiratory failure requiring 15 L of oxygen via nonrebreather. Patient has pulmonary edema on the chest x-ray. Patient had normal systolic function in the past and history of diastolic function. Patient is end-stage renal disease patient on hemodialysis. Patient is quite weak able to answer questions alert oriented x 3 at this time when I evaluated the patient patient had severe pulmonary hypertension as well. Patient has bilateral rhonchi patient is presently receiving IV Bumex at this time. Patient's D-dimer is elevated because of which pulmonary recommended VQ scan. Patient is complaining of cough without any significant sputum production. Patient also has history of sleep apnea patient used to smoke and quit in 2009. 07/16/2023 patient is seen and evaluated in room at bedside; doing much better today, she underwent hemodialysis yesterday, and tolerated 2 L ultrafiltration yesterday. Patient is now on 6 L nasal cannula, and O2 saturations in the mid 90s. Vital signs are stable with temperature of 98.1, pulse 57, respirations 16 and blood pressure 120/56 WBC count today is 12.1 hemoglobin is 10.5 basic metabolic profile is normal BUN is 71 creatinine 5.15 07/17/2023 -- patient is seen and evaluated in room at bedside; reports she is doing great, however she is back to 8 L nasal cannula with marginal O2 saturation Vital signs are reviewed temperature 97.7, pulse 56, respirations 16 and blood pressure of 94/56 patient is scheduled to have hemodialysis today, and I think that will help her oxygenation, patient clearly goes into fluid overload easily and she gets much better after hemodialysis. The patient is relatively asymptomatic denies being short of breath, her CBC is normal basic metabolic profile is normal BUN is 57 creatinine 4.15 Continue hemodialysis/ultrafiltration Continue torsemide Continue bronchodilators and steroids for COPD Continue antibiotics since her CT of the chest showed airspace opacities clinically I doubt pneumonia, the presentation is mostly a presentation of acute diastolic congestive heart failure 07/18/2023 -patient is seen and evaluated in room at bedside; reports no specific complaints; had hemodialysis yesterday, and she is now down to 4 L nasal cannula, patient is steadily improving, feeling better, breathing easier - follow-up chest x-ray on this patient in the morning - WBC count today is 7.7 hemoglobin is 10.6 basic metabolic profile is normal BUN is 53 creatinine 4.3 -- Plan is to continue with hemodialysis/ultrafiltration; continue to wean O2 as able, patient is currently down to 4 L per nasal cannula -- Pulmonary service on board and planning discharge in next 24 to 48 hours pending clinical course Objective - Vital Signs Vital signs: Vital Signs Temp 98.4 F 07/18/23 09:35 Pulse 56 L 07/18/23 11:35 Resp 17 07/18/23 09:51 BP 114/65 07/18/23 09:35 Pulse Ox 92 L 07/18/23 09:45 FiO2 Intake & Output 07/17/23 07/18/23 07/18/23 18:59 06:59 18:59 Intake Total 736 358 Output Total 2500 Balance -1764 358 Weight 63.5 kg Intake: Oral 236 358 Hemodialysis 500 Output: Urine 0 Hemodialysis 2500 Other: Voiding Method Bedside Commode Bedside Commode Bedside Commode Diaper Diaper Diaper # Voids 0 # Bowel Movements 1 - Exam GENERAL: The patient is alert and oriented x3, patient is not in distress on nonrebreather well developed, well nourished. HEENT: Pupils are round and equally reacting to light. EOMI. No scleral icterus. No conjunctival pallor. Normocephalic, atraumatic. No pharyngeal erythema. No thyromegaly. CARDIOVASCULAR: S1 and S2 present. No murmurs, rubs, or gallops. PULMONARY: Bilateral crackles rhonchi and possible wheezing. ABDOMEN: Soft, nontender, nondistended, normoactive bowel sounds. No palpable organomegaly. MUSCULOSKELETAL: No joint swelling or deformity. EXTREMITIES: No cyanosis, clubbing, or pedal edema. NEUROLOGICAL: Gross neurological examination did not reveal any focal deficits. SKIN: No rashes. - Labs CBC & Chem 7: 07/18/23 09:17 07/18/23 09:17 Labs: Abnormal Lab Results - Last 24 Hours (Table) 07/17/23 07/17/23 07/18/23 Range/Units 16:16 20:06 09:17 RBC 3.58 L (3.80-5.40) m/uL Hgb 10.6 L (11.4-16.0) gm/dL Hct 32.8 L (34.0-46.0) % Sodium (137-145) mmol/L Chloride (98-107) mmol/L BUN (7-17) mg/dL Creatinine (0.52-1.04) mg/dL Glucose (74-99) mg/dL POC Glucose (mg/dL) 183 H 240 H (70-110) mg/dL 07/18/23 Range/Units 09:17 RBC (3.80-5.40) m/uL Hgb (11.4-16.0) gm/dL Hct (34.0-46.0) % Sodium 134 L (137-145) mmol/L Chloride 94 L (98-107) mmol/L BUN 53 H (7-17) mg/dL Creatinine 4.30 H (0.52-1.04) mg/dL Glucose 106 H (74-99) mg/dL POC Glucose (mg/dL) (70-110) mg/dL Assessment and Plan Assessment: -Acute hypoxic respiratory failure mostly because of pulmonary edema secondary to volume overload from diastolic function heart failure and also end-stage renal disease -Rule out aspiration pneumonia has been started on IV levofloxacin given patients allergies. Patient will be evaluated by speech therapy -COPD exacerbation on systemic steroids pulmonary following. -Hyponatremia secondary to secondary to end-stage renal disease patient will undergo hemodialysis today patient transitioned to oral demadex. -Type 2 diabetes mellitus patient is on systemic steroids and will need to monitor blood glucose and titrate insulin and may require long acting insulin. -CVA TIA in the past -Sleep apnea uses BiPAP at home -Coronary artery disease with cardiac catheterization in the past -Hypertension -Hyperlipidemia GI prophylaxis DVT prophylaxis: Subcutaneous heparin Full Code
[2023-07-18 20:07] LABS: Glucose,Whole Blood 245 mg/dL (70-110)
[2023-07-19 06:03] LABS: Glucose,Whole Blood 116 mg/dL (70-110)
--- NOTE | 2023-07-19 08:30 | XR ---
EXAMINATION TYPE: XR chest 1V portable DATE OF EXAM: 07/19/2023 7:11 AM CLINICAL INDICATION:Female, 68 years old with history of chf; COMPARISON: Chest radiographs from 07/14/2023 TECHNIQUE: XR chest 1V portable Frontal view of the chest. FINDINGS: Lungs/Pleura: increased left midlung and lower lung airspace opacities. There is flattening of the d iaphragm with increased lucency of the lungs. No evidence of pneumothorax, pleural effusion or right focal consolidation. Pulmonary vascularity: Unremarkable. Heart/mediastinum: Cardiomediastinal silhouette is unremarkable. Musculoskeletal: Degenerative changes of the shoulder joints. Other findings: None IMPRESSION: 1. There is increased airspace opacities in the left lower lung correlate for developing pneumonia. 2. COPD changes. 3. No definitive acute congestive heart failure changes.
[2023-07-19 08:45] LABS: Anisocytosis Slight; Basophils % (A) 0 %; Eosinophils % (A) 1 %; HCT 28.4 % (34.0-46.0); HGB 9.2 gm/dL (11.4-16.0); Lymphocytes % (A) 15 %; MCH 29.5 pg (25.0-35.0); MCHC 32.3 g/dL (31.0-37.0); MCV 91.3 fL (80.0-100.0); Mean Platelet Volume 8.3; Monocytes # (A) 0.3 k/uL (0-1.0); Monocytes % (A) 5 %; Neutrophils # (A) 4.9 k/uL (1.3-7.7); Neutrophils % (A) 77 %; Platelet Count 203 k/uL (150-450); RBC 3.11 m/uL (3.80-5.40); RDW 17.7 % (11.5-15.5); WBC 6.3 k/uL (3.8-10.6)
[2023-07-19 09:12] LABS: Anion Gap 10 mmol/L; Blood Urea Nitrogen 85 mg/dL (7-17); Calcium 8.3 mg/dL (8.4-10.2); Carbon Dioxide 27 mmol/L (22-30); Chloride 93 mmol/L (98-107); Glucose 134 mg/dL (74-99); Potassium 3.8 mmol/L (3.5-5.1); Sodium 130 mmol/L (137-145)
[2023-07-19 09:20] LABS: African American GFR (CKD) 7 (>60 ml/min/1.73 sqM); Non-African American GFR(CKD) 6 (>60 ml/min/1.73 sqM)
--- NOTE | 2023-07-19 10:34 | P.PN ---
Subjective 48-year-old female came in with shortness of breath found to be in hypoxic respiratory failure requiring 15 L of oxygen via nonrebreather. Patient has pulmonary edema on the chest x-ray. Patient had normal systolic function in the past and history of diastolic function. Patient is end-stage renal disease patient on hemodialysis. Patient is quite weak able to answer questions alert oriented x 3 at this time when I evaluated the patient patient had severe pulmonary hypertension as well. Patient has bilateral rhonchi patient is presently receiving IV Bumex at this time. Patient's D-dimer is elevated because of which pulmonary recommended VQ scan. Patient is complaining of cough without any significant sputum production. Patient also has history of sleep apnea patient used to smoke and quit in 2009. 07/16/2023 patient is seen and evaluated in room at bedside; doing much better today, she underwent hemodialysis yesterday, and tolerated 2 L ultrafiltration yesterday. Patient is now on 6 L nasal cannula, and O2 saturations in the mid 90s. Vital signs are stable with temperature of 98.1, pulse 57, respirations 16 and blood pressure 120/56 WBC count today is 12.1 hemoglobin is 10.5 basic metabolic profile is normal BUN is 71 creatinine 5.15 07/17/2023 -- patient is seen and evaluated in room at bedside; reports she is doing great, however she is back to 8 L nasal cannula with marginal O2 saturation Vital signs are reviewed temperature 97.7, pulse 56, respirations 16 and blood pressure of 94/56 patient is scheduled to have hemodialysis today, and I think that will help her oxygenation, patient clearly goes into fluid overload easily and she gets much better after hemodialysis. The patient is relatively asymptomatic denies being short of breath, her CBC is normal basic metabolic profile is normal BUN is 57 creatinine 4.15 Continue hemodialysis/ultrafiltration Continue torsemide Continue bronchodilators and steroids for COPD Continue antibiotics since her CT of the chest showed airspace opacities clinically I doubt pneumonia, the presentation is mostly a presentation of acute diastolic congestive heart failure 07/18/2023 -patient is seen and evaluated in room at bedside; reports no specific complaints; had hemodialysis yesterday, and she is now down to 4 L nasal cannula, patient is steadily improving, feeling better, breathing easier - follow-up chest x-ray on this patient in the morning - WBC count today is 7.7 hemoglobin is 10.6 basic metabolic profile is normal BUN is 53 creatinine 4.3 -- Plan is to continue with hemodialysis/ultrafiltration; continue to wean O2 as able, patient is currently down to 4 L per nasal cannula -- Pulmonary service on board and planning discharge in next 24 to 48 hours pending clinical course 07/19/2023 No dyspnea No chest pain No diarrhea or urinary problems She is taking shower Hemodynamically stable He is on 3 L oxygen via nasal cannula Hemoglobin 9.2, sodium 130, creatinine 6.09 and ihe is on hemodialysis Repeat chest x-ray today showing possible left lower lobe infiltrate suspicious for pneumonia. Patient was started on oral Levaquin to 50 mg today. Also he is on IV Solu-Medrol 40 mg for COPD exacerbation Objective - Vital Signs Vital signs: Vital Signs Temp 98.3 F 07/19/23 04:00 Pulse 56 L 07/19/23 08:58 Resp 20 07/19/23 04:00 BP 148/76 07/19/23 04:00 Pulse Ox 98 07/19/23 04:00 FiO2 Intake & Output 07/18/23 07/19/23 07/19/23 18:59 06:59 18:59 Intake Total 1074 0 118 Output Total 0 Balance 1074 0 118 Weight 65 kg Intake: Oral 1074 0 118 Output: Urine 0 Other: Voiding Method Bedside Commode Bedside Commode Diaper Diaper # Bowel Movements 1 - Exam GENERAL: The patient is alert and oriented x3, not in any acute distress. Well developed, well nourished. HEENT: Pupils are round and equally reacting to light. EOMI. No scleral icterus. No conjunctival pallor. Normocephalic, atraumatic. No pharyngeal erythema. No thyromegaly. CARDIOVASCULAR: S1 and S2 present. No murmurs, rubs, or gallops. PULMONARY: Chest is clear to auscultation, no wheezing , no crackles. ABDOMEN: Soft, nontender, nondistended, normoactive bowel sounds. No palpable organomegaly. MUSCULOSKELETAL: No joint swelling or deformity. EXTREMITIES: No cyanosis, clubbing, or pedal edema. NEUROLOGICAL: Gross neurological examination did not reveal any focal deficits. SKIN: No rashes. no petechiae. - Labs CBC & Chem 7: 07/19/23 08:27 07/19/23 08:27 Labs: Abnormal Lab Results - Last 24 Hours (Table) 07/18/23 07/18/23 07/18/23 Range/Units 09:17 09:17 11:55 RBC 3.58 L (3.80-5.40) m/uL Hgb 10.6 L (11.4-16.0) gm/dL Hct 32.8 L (34.0-46.0) % RDW (11.5-15.5) % Sodium 134 L (137-145) mmol/L Chloride 94 L (98-107) mmol/L BUN 53 H (7-17) mg/dL Creatinine 4.30 H (0.52-1.04) mg/dL Glucose 106 H (74-99) mg/dL POC Glucose (mg/dL) 212 H (70-110) mg/dL Calcium (8.4-10.2) mg/dL 07/18/23 07/18/23 07/19/23 Range/Units 16:16 20:05 06:01 RBC (3.80-5.40) m/uL Hgb (11.4-16.0) gm/dL Hct (34.0-46.0) % RDW (11.5-15.5) % Sodium (137-145) mmol/L Chloride (98-107) mmol/L BUN (7-17) mg/dL Creatinine (0.52-1.04) mg/dL Glucose (74-99) mg/dL POC Glucose (mg/dL) 177 H 245 H 116 H (70-110) mg/dL Calcium (8.4-10.2) mg/dL 07/19/23 07/19/23 Range/Units 08:27 08:27 RBC 3.11 L (3.80-5.40) m/uL Hgb 9.2 L (11.4-16.0) gm/dL Hct 28.4 L (34.0-46.0) % RDW 17.7 H (11.5-15.5) % Sodium 130 L (137-145) mmol/L Chloride 93 L (98-107) mmol/L BUN 85 H (7-17) mg/dL Creatinine 6.09 H (0.52-1.04) mg/dL Glucose 134 H (74-99) mg/dL POC Glucose (mg/dL) (70-110) mg/dL Calcium 8.3 L (8.4-10.2) mg/dL Assessment and Plan Assessment: -Acute hypoxic respiratory failure mostly because of pulmonary edema secondary to volume overload from diastolic function heart failure and also end-stage renal disease - Possible left lower lobe aspiration pneumonia has been started on IV le vofloxacin given patients allergies. Patient will be evaluated by speech therapy -COPD exacerbation on systemic steroids pulmonary following. -Possible left lower lobe hospital-acquired pneumonia, started on renal dose of Levaquin -Hyponatremia secondary to secondary to end-stage renal disease patient will undergo hemodialysis , on oral demadex. -Type 2 diabetes mellitus patient is on systemic steroids and will need to monitor blood glucose and titrate insulin and may require long acting insulin. -CVA TIA in the past -Sleep apnea uses BiPAP at home -Coronary artery disease with cardiac catheterization in the past -Hypertension -Hyperlipidemia
--- NOTE | 2023-07-19 11:27 | P.PN ---
Subjective patient is seen for follow-up for end-stage renal disease. Currently heading into the shower. No significant complaints of shortness of breath. Objective - Vital Signs Vital signs: Vital Signs Temp 97.6 F 07/19/23 08:00 Pulse 56 L 07/19/23 08:58 Resp 18 07/19/23 08:00 BP 123/56 07/19/23 08:00 Pulse Ox 93 L 07/19/23 08:00 FiO2 Intake & Output 07/18/23 07/19/23 07/19/23 18:59 06:59 18:59 Intake Total 1074 0 118 Output Total 0 Balance 1074 0 118 Weight 65 kg Intake: Oral 1074 0 118 Output: Urine 0 Other: Voiding Method Bedside Commode Bedside Commode Bedside Commode Diaper Diaper Diaper # Bowel Movements 1 - Exam patient is awake, alert oriented 3 Comfortable No significant edema noted CORE STACKER exam grossly intact - Labs CBC & Chem 7: 07/19/23 08:27 07/19/23 08:27 Labs: Abnormal Lab Results - Last 24 Hours (Table) 07/18/23 07/18/23 07/18/23 Range/Units 11:55 16:16 20:05 RBC (3.80-5.40) m/uL Hgb (11.4-16.0) gm/dL Hct (34.0-46.0) % RDW (11.5-15.5) % Sodium (137-145) mmol/L Chloride (98-107) mmol/L BUN (7-17) mg/dL Creatinine (0.52-1.04) mg/dL Glucose (74-99) mg/dL POC Glucose (mg/dL) 212 H 177 H 245 H (70-110) mg/dL Calcium (8.4-10.2) mg/dL 07/19/23 07/19/23 07/19/23 Range/Units 06:01 08:27 08:27 RBC 3.11 L (3.80-5.40) m/uL Hgb 9.2 L (11.4-16.0) gm/dL Hct 28.4 L (34.0-46.0) % RDW 17.7 H (11.5-15.5) % Sodium 130 L (137-145) mmol/L Chloride 93 L (98-107) mmol/L BUN 85 H (7-17) mg/dL Creatinine 6.09 H (0.52-1.04) mg/dL Glucose 134 H (74-99) mg/dL POC Glucose (mg/dL) 116 H (70-110) mg/dL Calcium 8.3 L (8.4-10.2) mg/dL Assessment and Plan Assessment: 1. End-stage renal disease maintained on hemodialysis on TTS schedule. 2. Acute hypoxic respiratory failure. No PE noted on CTA. improved post hemodialysis and ultrafiltration. 3. Volume overload. Improved with ultrafiltration. 4. COPD exacerbation. 5. Acute on chronic diastolic CHF with severe pulmonary hypertension. 6. Anemia of chronic kidney disease. High ferritin noted. Hemoglobin better. 7. Chronic kidney disease mineral bone disease. Phosphorus level 6.7. On PhosLo. Plan: hemodialysis in a.m. Continue with torsemide
[2023-07-19 11:55] LABS: Glucose,Whole Blood 213 mg/dL (70-110)
[2023-07-19] MEDS: LEVOFLOXACIN 250 MG TAB PO SCH (12:41)
--- NOTE | 2023-07-19 13:04 | P.PN ---
Subjective Progress Note Date: 07/19/23 Principal diagnosis: Hypoxia. This is a 68-year-old female patient with a known history of previous CVA/TIA status post bilateral carotid endarterectomies, chronic kidney disease on hemodialysis on a Wednesday schedule, hypertension, hyperlipidemia, diabetes mellitus severe pulmonary hypertension, diastolic congestive heart failure who resides in a extended care facility. She was brought into the emergency room early this morning with shortness of breath and decreased O2 saturations. This x-ray reveals mild pulmonary vascular congestion. White count 8.9. Hemoglobin 9.5. Platelets 185. D-dimer 1.74. Sodium 134. Potassium 4.8. Bicarb 25. BUN 62. Creatinine 5.58. Glucose 144. proBNP 8000. Troponin negative x 1. Viral screen negative. She is seen today in consultation in the emergency department. She is currently awake and alert. In mild respiratory distress, she is requiring 15 L via nonrebreather mask to maintain O2 saturations in the 90s. She has significant scattered rhonchi and wheezing. The patient is seen today July 15, 2023 in follow-up in the emergency department. She is more awake and alert today. Breathing easier compared to yesterday. She did undergo hemodialysis with 3.4 L of fluid removed. She is still requiring 15 L high flow nasal cannula may not O2 saturations in the upper 90s. She is afebrile. Hemodynamically stable. CT angiogram ruled out pulmonary embolism. There is airspace opacities in left lower lobe with opacified airways possible aspiration pneumonia. White count 8.4. Hemoglobin 9.6. Platelets 194. Sodium 135. Potassium 4.2. Bicarb 26. BUN 43. Creatinine 4.08. Glucose 144. She remains on DuoNeb ventilations, Symbicort, Solu-Medrol. Antibiotics in the form of Levaquin. Remains on oral diuretics. Patient was treated today on 07/16/2023, patient is doing much better today, she underwent hemodialysis yesterday, and tolerated 2 L ultrafiltration yesterday. Patient is now on 6 L nasal cannula, and O2 saturations in the mid 90s. Hardly any pulmonary symptoms patient feels much better since she had her last hemodialysis. Hardly any shortness of breath. WBC count today is 12.1 hemoglobin is 10.5 basic metabolic profile is normal BUN is 71 creatinine 5.15 Patient was evaluated today on 07/17/2023, patient is doing great, however she is back to 8 L nasal cannula with marginal O2 saturation, patient is scheduled to have hemodialysis today, and I think that will help her oxygenation, patient clearly goes into fluid overload easily and she gets much better after hemodialysis. The patient is relatively asymptomatic denies being short of breath, her CBC is normal basic metabolic profile is normal BUN is 57 creatinine 4.15 Patient was evaluated today on 07/18/2023, patient had hemodialysis yesterday, and she is now down to 4 L nasal cannula, patient is steadily improving, feeling better, breathing easierI am planning a follow-up chest x-ray on this patient in the morning, in the meantime the patient is clinically improving and doing well. She is responding well to hemodialysis. WBC count today is 7.7 hemoglobin is 10.6 basic metabolic profile is normal BUN is 53 creatinine 4.3 is Progress note dated July 19, 2023. The patient is seen today in room 370. Currently, she is on 3 L of oxygen. She is not receiving any IV fluids. She has no specific complaints today. She states that her breathing is improved. Current laboratory data includes a white count 6.3, hemoglobin 9.2, hematocrit 28.4, and a platelet count of 203,000. Sodium 130, potassium 3.8, chlorides 93, CO2 27, BUN 85, and creatinine 6.09. Glucose is 213. Calcium is 8.3. Chest x-ray shows opacities, at the left base. There is changes of COPD, without changes of fluid overload. Objective - Vital Signs Vital signs: Vital Signs Temp 97.6 F 07/19/23 08:00 Pulse 60 07/19/23 12:00 Resp 18 07/19/23 08:00 BP 123/56 07/19/23 08:00 Pulse Ox 93 L 07/19/23 08:00 FiO2 Intake & Output 07/18/23 07/19/23 07/19/23 18:59 06:59 18:59 Intake Total 1074 0 118 Output Total 0 Balance 1074 0 118 Weight 65 kg Intake: Oral 1074 0 118 Output: Urine 0 Other: Voiding Method Bedside Commode Bedside Commode Bedside Commode Diaper Diaper Diaper # Bowel Movements 1 - Exam No acute distress, oriented 3. No acute respiratory distress. Currently on 3 L of oxygen. HEENT examination is grossly unremarkable. Mucous membranes are moist. No oral lesions. Neck supple. Full range of motion. No adenopathy thyromegaly or neck vein distention. Cardiovascular examination reveals regular rhythm rate. S1-S2 normal. No S3 or S4. No discernible murmur noted. Lungs reveal mostly clear breath sounds. Minimal basilar crackles. No wheezes or rhonchi. Saturations are in the mid to high 90s on 3 L. Abdomen soft bowel sounds are heard. No masses or tenderness. Extremities are intact. No cyanosis clubbing or edema. Skin is without rash or lesion. Neurologic examination is brief but nonfocal. - Labs CBC & Chem 7: 07/19/23 08:27 07/19/23 08:27 Labs: Abnormal Lab Results - Last 24 Hours (Table) 07/18/23 07/18/23 07/19/23 Range/Units 16:16 20:05 06:01 RBC (3.80-5.40) m/uL Hgb (11.4-16.0) gm/dL Hct (34.0-46.0) % RDW (11.5-15.5) % Sodium (137-145) mmol/L Chloride (98-107) mmol/L BUN (7-17) mg/dL Creatinine (0.52-1.04) mg/dL Glucose (74-99) mg/dL POC Glucose (mg/dL) 177 H 245 H 116 H (70-110) mg/dL Calcium (8.4-10.2) mg/dL 07/19/23 07/19/23 07/19/23 Range/Units 08:27 08:27 11:53 RBC 3.11 L (3.80-5.40) m/uL Hgb 9.2 L (11.4-16.0) gm/dL Hct 28.4 L (34.0-46.0) % RDW 17.7 H (11.5-15.5) % Sodium 130 L (137-145) mmol/L Chloride 93 L (98-107) mmol/L BUN 85 H (7-17) mg/dL Creatinine 6.09 H (0.52-1.04) mg/dL Glucose 134 H (74-99) mg/dL POC Glucose (mg/dL) 213 H (70-110) mg/dL Calcium 8.3 L (8.4-10.2) mg/dL Assessment and Plan Assessment: End-stage renal disease, currently on hemodialysis. Acute hypoxemic respiratory failure secondary to acute exacerbation of diastolic CHF, and COPD exacerbation. Severe pulmonary hypertension. End-stage renal disease. Remote history of tobacco use. History of seizure disorder. History of TIA. History of hyperlipidemia. History of hypertension. History of obstructive sleep apnea syndrome, on CPAP. Iron deficiency anemia. Plan: Plan dated July 19, 2023. The patient continues to show improvement. Currently she has been weaned down to 3 L of oxygen. Saturations are in the mid to high 90s. The patient continues on diuretics, bronchodilators, and steroids. Chest x-ray is reviewed. Hopeful discharge within the next 2 or 3 days. Labs, x-rays, and medications are all reviewed. Prognosis is certainly guarded. Solu-Medrol can be converted to prednisone, 30 mg a day. Time with Patient: Less than 30
[2023-07-19 17:23] LABS: Glucose,Whole Blood 265 mg/dL (70-110)
[2023-07-19 20:19] LABS: Glucose,Whole Blood 199 mg/dL (70-110)
[2023-07-20 06:20] LABS: Glucose,Whole Blood 116 mg/dL (70-110)
--- NOTE | 2023-07-20 11:52 | P.PN ---
Subjective patient is seen for follow-up for end-stage renal disease. Currently seen on hemodialysis. Patient is tolerating treatment well. Goal UF of about 3 L. No significant complaints of shortness of breath. Objective - Vital Signs Vital signs: Vital Signs Temp 98.4 F 07/20/23 08:10 Pulse 56 L 07/20/23 08:46 Resp 17 07/20/23 08:10 BP 124/63 07/20/23 08:10 Pulse Ox 96 07/20/23 08:10 FiO2 Intake & Output 07/19/23 07/20/23 07/20/23 18:59 06:59 18:59 Intake Total 354 240 Output Total 120 Balance 354 -120 240 Weight 65 kg 67 kg Intake: Oral 354 240 Output: Urine 120 Other: Voiding Method Bedside Commode Bedside Commode Diaper Diaper # Voids 0 - Exam patient is awake, alert oriented 3 Comfortable Examination of the heart S1 and S2 Examination of the lungs bilateral breath sounds are heard Abdomen is soft nontender No significant edema noted COLD ROLLER exam grossly intact - Labs CBC & Chem 7: 07/19/23 08:27 07/19/23 08:27 Labs: Abnormal Lab Results - Last 24 Hours (Table) 07/19/23 07/19/23 07/19/23 Range/Units 11:53 17:21 20:17 POC Glucose (mg/dL) 213 H 265 H 199 H (70-110) mg/dL 07/20/23 Range/Units 05:58 POC Glucose (mg/dL) 116 H (70-110) mg/dL Assessment and Plan Assessment: 1. End-stage renal disease maintained on hemodialysis on TTS schedule. 2. Acute hypoxic respiratory failure. No PE noted on CTA. improved post hemodialysis and ultrafiltration. 3. Volume overload. Improved with ultrafiltration. 4. COPD exacerbation. 5. Acute on chronic diastolic CHF with severe pulmonary hypertension. 6. Anemia of chronic kidney disease. High ferritin noted. Hemoglobin better. 7. Chronic kidney disease mineral bone disease. On PhosLo. Plan: hemodialysis on a TTS schedule Continue with torsemide
[2023-07-20 12:09] LABS: Glucose,Whole Blood 166 mg/dL (70-110)
--- NOTE | 2023-07-20 13:27 | P.PN ---
Subjective Progress Note Date: 07/20/23 Principal diagnosis: Hypoxia. This is a 68-year-old female patient with a known history of previous CVA/TIA status post bilateral carotid endarterectomies, chronic kidney disease on hemodialysis on a Wednesday schedule, hypertension, hyperlipidemia, diabetes mellitus severe pulmonary hypertension, diastolic congestive heart failure who resides in a extended care facility. She was brought into the emergency room early this morning with shortness of breath and decreased O2 saturations. This x-ray reveals mild pulmonary vascular congestion. White count 8.9. Hemoglobin 9.5. Platelets 185. D-dimer 1.74. Sodium 134. Potassium 4.8. Bicarb 25. BUN 62. Creatinine 5.58. Glucose 144. proBNP 8000. Troponin negative x 1. Viral screen negative. She is seen today in consultation in the emergency department. She is currently awake and alert. In mild respiratory distress, she is requiring 15 L via nonrebreather mask to maintain O2 saturations in the 90s. She has significant scattered rhonchi and wheezing. The patient is seen today July 15, 2023 in follow-up in the emergency department. She is more awake and alert today. Breathing easier compared to yesterday. She did undergo hemodialysis with 3.4 L of fluid removed. She is still requiring 15 L high flow nasal cannula may not O2 saturations in the upper 90s. She is afebrile. Hemodynamically stable. CT angiogram ruled out pulmonary embolism. There is airspace opacities in left lower lobe with opacified airways possible aspiration pneumonia. White count 8.4. Hemoglobin 9.6. Platelets 194. Sodium 135. Potassium 4.2. Bicarb 26. BUN 43. Creatinine 4.08. Glucose 144. She remains on DuoNeb ventilations, Symbicort, Solu-Medrol. Antibiotics in the form of Levaquin. Remains on oral diuretics. Patient was treated today on 07/16/2023, patient is doing much better today, she underwent hemodialysis yesterday, and tolerated 2 L ultrafiltration yesterday. Patient is now on 6 L nasal cannula, and O2 saturations in the mid 90s. Hardly any pulmonary symptoms patient feels much better since she had her last hemodialysis. Hardly any shortness of breath. WBC count today is 12.1 hemoglobin is 10.5 basic metabolic profile is normal BUN is 71 creatinine 5.15 Patient was evaluated today on 07/17/2023, patient is doing great, however she is back to 8 L nasal cannula with marginal O2 saturation, patient is scheduled to have hemodialysis today, and I think that will help her oxygenation, patient clearly goes into fluid overload easily and she gets much better after hemodialysis. The patient is relatively asymptomatic denies being short of breath, her CBC is normal basic metabolic profile is normal BUN is 57 creatinine 4.15 Patient was evaluated today on 07/18/2023, patient had hemodialysis yesterday, and she is now down to 4 L nasal cannula, patient is steadily improving, feeling better, breathing easierI am planning a follow-up chest x-ray on this patient in the morning, in the meantime the patient is clinically improving and doing well. She is responding well to hemodialysis. WBC count today is 7.7 hemoglobin is 10.6 basic metabolic profile is normal BUN is 53 creatinine 4.3 is Progress note dated July 19, 2023. The patient is seen today in room 370. Currently, she is on 3 L of oxygen. She is not receiving any IV fluids. She has no specific complaints today. She states that her breathing is improved. Current laboratory data includes a white count 6.3, hemoglobin 9.2, hematocrit 28.4, and a platelet count of 203,000. Sodium 130, potassium 3.8, chlorides 93, CO2 27, BUN 85, and creatinine 6.09. Glucose is 213. Calcium is 8.3. Chest x-ray shows opacities, at the left base. There is changes of COPD, without changes of fluid overload. Progress note dated July 20, 2023. The patient is again seen in room 370. The patient is currently undergoing hemodialysis, with a plan to remove 3 L of fluid. She is using oxygen supplementally at 3 L by nasal cannula. The patient is not receiving any IV fluids. Clinically, she appears stable. There is no respiratory distress, or hemodynamic issues at this time. Current labs include a glucose of 166. No new labs today other than the glucose. The labs from yesterday, have been reviewed. The chest x-ray from July 18 is also been reviewed. Objective - Vital Signs Vital signs: Vital Signs Temp 98.4 F 07/20/23 08:10 Pulse 56 L 07/20/23 08:46 Resp 17 07/20/23 08:10 BP 124/63 07/20/23 08:10 Pulse Ox 96 07/20/23 08:10 FiO2 Intake & Output 07/19/23 07/20/23 07/20/23 18:59 06:59 18:59 Intake Total 354 240 Output Total 120 Balance 354 -120 240 Weight 65 kg 67 kg Intake: Oral 354 240 Output: Urine 120 Other: Voiding Method Bedside Commode Bedside Commode Diaper Diaper # Voids 0 - Exam No acute distress, oriented 3. No acute respiratory distress. Currently on 3 L of oxygen. HEENT examination is grossly unremarkable. Mucous membranes are moist. No oral lesions. Neck supple. Full range of motion. No adenopathy thyromegaly or neck vein distention. Cardiovascular examination reveals regular rhythm rate. S1-S2 normal. No S3 or S4. No discernible murmur noted. Heart rate 56 bpm. Lungs reveal mostly clear breath sounds. Minimal basilar crackles. No wheezes or rhonchi. Saturations are 96% on 3 L nasal cannula. Abdomen soft bowel sounds are heard. No masses or tenderness. Extremities are intact. No cyanosis clubbing or edema. Skin is without rash or lesion. Neurologic examination is brief but nonfocal. - Labs CBC & Chem 7: 07/19/23 08:27 07/19/23 08:27 Labs: Abnormal Lab Results - Last 24 Hours (Table) 07/19/23 07/19/23 07/20/23 Range/Units 17:21 20:17 05:58 POC Glucose (mg/dL) 265 H 199 H 116 H (70-110) mg/dL 07/20/23 Range/Units 12:07 POC Glucose (mg/dL) 166 H (70-110) mg/dL Assessment and Plan Assessment: End-stage renal disease, currently on hemodialysis. Acute hypoxemic respiratory failure secondary to acute exacerbation of diastolic CHF, and COPD exacerbation. Severe pulmonary hypertension. End-stage renal disease. Remote history of tobacco use. History of seizure disorder. History of TIA. History of hyperlipidemia. History of hypertension. History of obstructive sleep apnea syndrome, on CPAP. Iron deficiency anemia. Plan: Plan dated July 19, 2023. The patient continues to show improvement. Currently she has been weaned down to 3 L of oxygen. Saturations are in the mid to high 90s. The patient continues on diuretics, bronchodilators, and steroids. Chest x-ray is reviewed. Hopeful discharge within the next 2 or 3 days. Labs, x-rays, and medications are all reviewed. Prognosis is certainly guarded. Solu-Medrol can be converted to prednisone, 30 mg a day. Plan dated July 20, 2023. The patient is seen today in room 370. The patient is currently undergoing hemodialysis. The plan is to remove roughly 3 L of fluid. The patient is on 3 L of oxygen. No IV fluids. Clinically, the patient appears much more stable. She denies any respiratory issues., X-rays, and medications are reviewed. Solu-Medrol be discontinued in favor of prednisone 30 mg a day. We will continue to follow make recommendations along the way. Prognosis is guarded. Time with Patient: Less than 30
[2023-07-20 17:01] LABS: Glucose,Whole Blood 247 mg/dL (70-110)
[2023-07-20 20:45] LABS: Glucose,Whole Blood 160 mg/dL (70-110)
--- NOTE | 2023-07-20 22:05 | P.PN ---
Subjective 48-year-old female came in with shortness of breath found to be in hypoxic respiratory failure requiring 15 L of oxygen via nonrebreather. Patient has pulmonary edema on the chest x-ray. Patient had normal systolic function in the past and history of diastolic function. Patient is end-stage renal disease patient on hemodialysis. Patient is quite weak able to answer questions alert oriented x 3 at this time when I evaluated the patient patient had severe pulmonary hypertension as well. Patient has bilateral rhonchi patient is presently receiving IV Bumex at this time. Patient's D-dimer is elevated because of which pulmonary recommended VQ scan. Patient is complaining of cough without any significant sputum production. Patient also has history of sleep apnea patient used to smoke and quit in 2009. 07/16/2023 patient is seen and evaluated in room at bedside; doing much better today, she underwent hemodialysis yesterday, and tolerated 2 L ultrafiltration yesterday. Patient is now on 6 L nasal cannula, and O2 saturations in the mid 90s. Vital signs are stable with temperature of 98.1, pulse 57, respirations 16 and blood pressure 120/56 WBC count today is 12.1 hemoglobin is 10.5 basic metabolic profile is normal BUN is 71 creatinine 5.15 07/17/2023 -- patient is seen and evaluated in room at bedside; reports she is doing great, however she is back to 8 L nasal cannula with marginal O2 saturation Vital signs are reviewed temperature 97.7, pulse 56, respirations 16 and blood pressure of 94/56 patient is scheduled to have hemodialysis today, and I think that will help her oxygenation, patient clearly goes into fluid overload easily and she gets much better after hemodialysis. The patient is relatively asymptomatic denies being short of breath, her CBC is normal basic metabolic profile is normal BUN is 57 creatinine 4.15 Continue hemodialysis/ultrafiltration Continue torsemide Continue bronchodilators and steroids for COPD Continue antibiotics since her CT of the chest showed airspace opacities clinically I doubt pneumonia, the presentation is mostly a presentation of acute diastolic congestive heart failure 07/18/2023 -patient is seen and evaluated in room at bedside; reports no specific complaints; had hemodialysis yesterday, and she is now down to 4 L nasal cannula, patient is steadily improving, feeling better, breathing easier - follow-up chest x-ray on this patient in the morning - WBC count today is 7.7 hemoglobin is 10.6 basic metabolic profile is normal BUN is 53 creatinine 4.3 -- Plan is to continue with hemodialysis/ultrafiltration; continue to wean O2 as able, patient is currently down to 4 L per nasal cannula -- Pulmonary service on board and planning discharge in next 24 to 48 hours pending clinical course 07/19/2023 No dyspnea No chest pain No diarrhea or urinary problems She is taking shower Hemodynamically stable He is on 3 L oxygen via nasal cannula Hemoglobin 9.2, sodium 130, creatinine 6.09 and ihe is on hemodialysis Repeat chest x-ray today showing possible left lower lobe infiltrate suspicious for pneumonia. Patient was started on oral Levaquin to 50 mg today. Also he is on IV Solu-Medrol 40 mg for COPD exacerbation 07/20/2023 Patient breathing improving slowly and gradually She is getting hemodialysis and 3 L taken out IV Solu-Medrol switched to prednisone 30 mg today Patient continued on Levaquin for possible left lower lobe pneumonia Will continue monitoring. Patient may be considered for discharge soon if she keeps improvement Objective - Vital Signs Vital signs: Vital Signs Temp 98.1 F 07/20/23 13:58 Pulse 52 L 07/20/23 13:58 Resp 18 07/20/23 13:58 BP 118/55 07/20/23 13:58 Pulse Ox 96 07/20/23 08:10 FiO2 Intake & Output 07/19/23 07/20/23 07/20/23 18:59 06:59 18:59 Intake Total 354 980 Output Total 120 3300 Balance 354 -120 -2320 Weight 65 kg 67 kg Intake: Oral 354 480 Hemodialysis 500 Output: Urine 120 Hemodialysis 3300 Other: Voiding Method Bedside Commode Bedside Commode Diaper Diaper # Voids 0 - Exam GENERAL: The patient is alert and oriented x3, not in any acute distress. Well developed, well nourished. HEENT: Pupils are round and equally reacting to light. EOMI. No scleral icterus. No conjunctival pallor. Normocephalic, atraumatic. No pharyngeal erythema. No thyromegaly. CARDIOVASCULAR: S1 and S2 present. No murmurs, rubs, or gallops. PULMONARY: Chest is clear to auscultation, no wheezing , no crackles. ABDOMEN: Soft, nontender, nondistended, normoactive bowel sounds. No palpable organomegaly. MUSCULOSKELETAL: No joint swelling or deformity. EXTREMITIES: No cyanosis, clubbing, or pedal edema. NEUROLOGICAL: Gross neurological examination did not reveal any focal deficits. SKIN: No rashes. no petechiae. - Labs CBC & Chem 7: 07/19/23 08:27 07/19/23 08:27 Labs: Abnormal Lab Results - Last 24 Hours (Table) 07/19/23 07/19/23 07/20/23 Range/Units 17:21 20:17 05:58 POC Glucose (mg/dL) 265 H 199 H 116 H (70-110) mg/dL 07/20/23 Range/Units 12:07 POC Glucose (mg/dL) 166 H (70-110) mg/dL Assessment and Plan Assessment: -Acute hypoxic respiratory failure mostly because of pulmonary edema secondary to volume overload from diastolic function heart failure and also end-stage renal disease -End-stage renal disease getting hemodialysis -COPD exacerbation on systemic steroids pulmonary following.. Currently on a prednisone -Possible left lower lobe hospital-acquired pneumonia, started on renal dose of Levaquin -Hyponatremia secondary to secondary to end-stage renal disease patient will undergo hemodialysis , on oral demadex. -Type 2 diabetes mellitus patient is on systemic steroids and will need to monitor blood glucose and titrate insulin and may require long acting insulin. -CVA TIA in the past -Sleep apnea uses BiPAP at home -Coronary artery disease with cardiac catheterization in the past -Hypertension -Hyperlipidemia
[2023-07-21 06:08] LABS: Glucose,Whole Blood 105 mg/dL (70-110)
[2023-07-21] MEDS: predniSONE 10 MG TAB PO SCH (09:40)
[2023-07-21 11:38] LABS: Glucose,Whole Blood 165 mg/dL (70-110)
--- NOTE | 2023-07-21 12:29 | P.PN ---
Subjective Progress Note Date: 07/21/23 Principal diagnosis: Hypoxia. This is a 68-year-old female patient with a known history of previous CVA/TIA status post bilateral carotid endarterectomies, chronic kidney disease on hemodialysis on a Wednesday schedule, hypertension, hyperlipidemia, diabetes mellitus severe pulmonary hypertension, diastolic congestive heart failure who resides in a extended care facility. She was brought into the emergency room early this morning with shortness of breath and decreased O2 saturations. This x-ray reveals mild pulmonary vascular congestion. White count 8.9. Hemoglobin 9.5. Platelets 185. D-dimer 1.74. Sodium 134. Potassium 4.8. Bicarb 25. BUN 62. Creatinine 5.58. Glucose 144. proBNP 8000. Troponin negative x 1. Viral screen negative. She is seen today in consultation in the emergency department. She is currently awake and alert. In mild respiratory distress, she is requiring 15 L via nonrebreather mask to maintain O2 saturations in the 90s. She has significant scattered rhonchi and wheezing. The patient is seen today July 15, 2023 in follow-up in the emergency department. She is more awake and alert today. Breathing easier compared to yesterday. She did undergo hemodialysis with 3.4 L of fluid removed. She is still requiring 15 L high flow nasal cannula may not O2 saturations in the upper 90s. She is afebrile. Hemodynamically stable. CT angiogram ruled out pulmonary embolism. There is airspace opacities in left lower lobe with opacified airways possible aspiration pneumonia. White count 8.4. Hemoglobin 9.6. Platelets 194. Sodium 135. Potassium 4.2. Bicarb 26. BUN 43. Creatinine 4.08. Glucose 144. She remains on DuoNeb ventilations, Symbicort, Solu-Medrol. Antibiotics in the form of Levaquin. Remains on oral diuretics. Patient was treated today on 07/16/2023, patient is doing much better today, she underwent hemodialysis yesterday, and tolerated 2 L ultrafiltration yesterday. Patient is now on 6 L nasal cannula, and O2 saturations in the mid 90s. Hardly any pulmonary symptoms patient feels much better since she had her last hemodialysis. Hardly any shortness of breath. WBC count today is 12.1 hemoglobin is 10.5 basic metabolic profile is normal BUN is 71 creatinine 5.15 Patient was evaluated today on 07/17/2023, patient is doing great, however she is back to 8 L nasal cannula with marginal O2 saturation, patient is scheduled to have hemodialysis today, and I think that will help her oxygenation, patient clearly goes into fluid overload easily and she gets much better after hemodialysis. The patient is relatively asymptomatic denies being short of breath, her CBC is normal basic metabolic profile is normal BUN is 57 creatinine 4.15 Patient was evaluated today on 07/18/2023, patient had hemodialysis yesterday, and she is now down to 4 L nasal cannula, patient is steadily improving, feeling better, breathing easierI am planning a follow-up chest x-ray on this patient in the morning, in the meantime the patient is clinically improving and doing well. She is responding well to hemodialysis. WBC count today is 7.7 hemoglobin is 10.6 basic metabolic profile is normal BUN is 53 creatinine 4.3 is Progress note dated July 19, 2023. The patient is seen today in room 370. Currently, she is on 3 L of oxygen. She is not receiving any IV fluids. She has no specific complaints today. She states that her breathing is improved. Current laboratory data includes a white count 6.3, hemoglobin 9.2, hematocrit 28.4, and a platelet count of 203,000. Sodium 130, potassium 3.8, chlorides 93, CO2 27, BUN 85, and creatinine 6.09. Glucose is 213. Calcium is 8.3. Chest x-ray shows opacities, at the left base. There is changes of COPD, without changes of fluid overload. Progress note dated July 20, 2023. The patient is again seen in room 370. The patient is currently undergoing hemodialysis, with a plan to remove 3 L of fluid. She is using oxygen supplementally at 3 L by nasal cannula. The patient is not receiving any IV fluids. Clinically, she appears stable. There is no respiratory distress, or hemodynamic issues at this time. Current labs include a glucose of 166. No new labs today other than the glucose. The labs from yesterday, have been reviewed. The chest x-ray from July 18 is also been reviewed. Progress note dated July 21, 2023. The patient is again seen today in room 370. Currently, the patient is on 3 L. No plans for hemodialysis today. Yesterday, she had hemodialysis, and 2.5 L of fluid was removed. Labs today include only a glucose of 165. The patient is without any distress. She denies any shortness of breath, cough, wheezing, ch est tightness, or phlegm production. She also denies any chest pain or pressure. She denies nausea, vomiting, diarrhea, or abdominal pain. Objective - Vital Signs Vital signs: Vital Signs Temp 97.9 F 07/21/23 09:30 Pulse 50 L 07/21/23 12:11 Resp 16 07/21/23 12:11 BP 94/40 07/21/23 09:30 Pulse Ox 97 07/21/23 09:30 FiO2 Intake & Output 07/20/23 07/21/23 07/21/23 18:59 06:59 18:59 Intake Total 1460 118 Output Total 3300 0 Balance -1840 118 Weight 65.9 kg Intake: Oral 960 118 Hemodialysis 500 Output: Urine 0 Hemodialysis 3300 Other: Voiding Method Bedside Commode Bedside Commode Bedside Commode Diaper Diaper Diaper # Voids 0 - Exam No acute distress, oriented 3. No acute respiratory distress. Currently on 3 L of oxygen. HEENT examination is grossly unremarkable. Mucous membranes are moist. No oral lesions. Neck supple. Full range of motion. No adenopathy thyromegaly or neck vein distention. Cardiovascular examination reveals regular rhythm rate. S1-S2 normal. No S3 or S4. No discernible murmur noted. Heart rate 50 bpm. Lungs reveal mostly clear breath sounds. Minimal basilar crackles. No wheezes or rhonchi. Saturations are 97 % on 3 L nasal cannula. Abdomen soft bowel sounds are heard. No masses or tenderness. Extremities are intact. No cyanosis clubbing or edema. Skin is without rash or lesion. Neurologic examination is brief but nonfocal. - Labs CBC & Chem 7: 07/19/23 08:27 07/19/23 08:27 Labs: Abnormal Lab Results - Last 24 Hours (Table) 07/20/23 07/20/23 07/21/23 Range/Units 16:59 20:26 11:37 POC Glucose (mg/dL) 247 H 160 H 165 H (70-110) mg/dL Assessment and Plan Assessment: End-stage renal disease, currently on hemodialysis. Acute hypoxemic respiratory failure secondary to acute exacerbation of diastolic CHF, and COPD exacerbation. Severe pulmonary hypertension. End-stage renal disease. Remote history of tobacco use. History of seizure disorder. History of TIA. History of hyperlipidemia. History of hypertension. History of obstructive sleep apnea syndrome, on CPAP. Iron deficiency anemia. Plan: Plan dated July 19, 2023. The patient continues to show improvement. Currently she has been weaned down to 3 L of oxygen. Saturations are in the mid to high 90s. The patient continues on diuretics, bronchodilators, and steroids. Chest x-ray is reviewed. Hopeful discharge within the next 2 or 3 days. Labs, x-rays, and medications are all reviewed. Prognosis is certainly guarded. Solu-Medrol can be converted to prednisone, 30 mg a day. Plan dated July 20, 2023. The patient is seen today in room 370. The patient is currently undergoing hemodialysis. The plan is to remove roughly 3 L of fluid. The patient is on 3 L of oxygen. No IV fluids. Clinically, the patient appears much more stable. She denies any respiratory issues., X-rays, and medications are reviewed. Solu-Medrol be discontinued in favor of prednisone 30 mg a day. We will continue to follow make recommendations along the way. Prognosis is guarded. Plan dated July 21, 2023. The patient is seen today in room 370. She is on 3 L of oxygen. No plans for hemodialysis today. Yesterday, during her hemodialysis session, 2.5 L of fluid was removed. No new labs today other than a glucose, as mentioned above. The patient denies any complaints, specifically shortness of breath, cough, wheezing, chest tightness, or phlegm production. She also denies any chest pain or pressure. She denies any GI or issues. We will continue to follow make recommendations along the way. Prognosis is guarded. Patient is currently not on any antibiotics. Solu-Medrol was discontinued yesterday in favor of prednisone. Time with Patient: Less than 30
[2023-07-21 16:41] LABS: Glucose,Whole Blood 183 mg/dL (70-110)
--- NOTE | 2023-07-21 18:53 | P.PN ---
Subjective patient is seen for follow-up for end-stage renal disease. Tolerated hemodialysis well yesterday. No significant complaints of shortness of breath. Walking with physical therapy. Objective - Vital Signs Vital signs: Vital Signs Temp 98.2 F 07/21/23 15:50 Pulse 51 L 07/21/23 15:50 Resp 16 07/21/23 15:50 BP 100/51 07/21/23 15:50 Pulse Ox 99 07/21/23 15:50 FiO2 Intake & Output 07/20/23 07/21/23 07/21/23 18:59 06:59 18:59 Intake Total 1460 712 Output Total 3300 0 Balance -1840 712 Weight 65.9 kg Intake: Oral 960 712 Hemodialysis 500 Output: Urine 0 Hemodialysis 3300 Other: Voiding Method Bedside Commode Bedside Commode Bedside Commode Diaper Diaper Diaper # Voids 0 # Bowel Movements 0 - Exam patient is awake, alert oriented 3 Comfortable No significant edema noted [employer] exam grossly intact - Labs CBC & Chem 7: 07/19/23 08:27 07/19/23 08:27 Labs: Abnormal Lab Results - Last 24 Hours (Table) 07/20/23 07/21/23 07/21/23 Range/Units 20:26 11:37 16:40 POC Glucose (mg/dL) 160 H 165 H 183 H (70-110) mg/dL Assessment and Plan Assessment: 1. End-stage renal disease maintained on hemodialysis on TTS schedule. 2. Acute hypoxic respiratory failure. No PE noted on CTA. improved post hemodialysis and ultrafiltration. 3. Volume overload. Improved with ultrafiltration. 4. COPD exacerbation. 5. Acute on chronic diastolic CHF with severe pulmonary hypertension. 6. Anemia of chronic kidney disease. High ferritin noted. Hemoglobin better. 7. Chronic kidney disease mineral bone disease. On PhosLo. Plan: hemodialysis on a TTS schedule Continue with torsemide
[2023-07-21 20:28] LABS: Glucose,Whole Blood 218 mg/dL (70-110)
[2023-07-22 06:10] LABS: Glucose,Whole Blood 137 mg/dL (70-110)
--- NOTE | 2023-07-22 09:55 | P.DS ---
Providers Date of admission: 07/14/23 06:01 Attending physician: Ej Gordillo Consults: 07/14/23 06:04 Consult Physician Routine Consulting Provider: Kerri Shelby Consult Reason/Comments: hypoxia Do you want consulting provider notified?: Yes Consult Physician Routine Consulting Provider: Uday Montalvo Consult Reason/Comments: renalFail Do you want consulting provider notified?: Yes 07/14/23 06:07 Consult Physician Routine Consulting Provider: Mehul Coker Consult Reason/Comments: chf Do you want consulting provider notified?: Yes Primary care physician: Pa Arthur [facility] Course: Diagnoses: -Acute hypoxic respiratory failure mostly because of pulmonary edema secondary to volume overload from diastolic function heart failure and also end-stage renal disease -End-stage renal disease getting hemodialysis -COPD exacerbation on systemic steroids pulmonary following.. Currently on a prednisone -Possible left lower lobe hospital-acquired pneumonia, started on renal dose of Levaquin -Hyponatremia secondary to secondary to end-stage renal disease patient will undergo hemodialysis , on oral demadex. -Type 2 diabetes mellitus patient is on systemic steroids and will need to monitor blood glucose and titrate insulin and may require long acting insulin. -CVA TIA in the past -Sleep apnea uses BiPAP at home -Coronary artery disease with cardiac catheterization in the past -Hypertension -Hyperlipidemia Hospital course: 48-year-old female came in with shortness of breath found to be in hypoxic respiratory failure requiring 15 L of oxygen via nonrebreather. Patient has pulmonary edema on the chest x-ray. Patient was found to be fluid overload improved with dialysis, COPD treated with IV Solu-Medrol 40 mg switched to prednisone 30 and x-ray was showing left lower lobe infiltrate suspicious for pneumonia with mild leukocytosis. Infection was considered and patient was started on Levaquin, every other days which is renal dose. Patient showed interval improvement. Currently she is not tachypneic or dyspneic. No chest pain without coughing. No GI or urinary symptoms. No fever or chills. Patient feels ready to go to rehab today. Patient was cleared for discharge by pulmonary service Patient will be discharged on 3 more pills of Levaquin, taper prednisone. Bumex was stopped and started on torsemide. Problems and management plan were discussed with the patient and he verbalized understanding and acceptance Patient was found stable and can be discharged to [facility] in guarded prognosis however he needs follow-up as an outpatient. Patient was instructed to follow up with PCP within one week and patient agrees Patient was instructed to follow-up with Dr. Elizabeth in 2 weeks and she agrees. Patient was instructed to follow-up with her plant maintenance engineer Dr. Mancuso in 1 to 2 weeks and she agrees Follow-up with product safety administrator Dr. Bocanegra in 1 week Physical exam Gen: patient is a AAOx3, no distress CVS: S1-S2, RRR, no murmur Lungs: B/L CTA, no wheezing Abdomen: soft, no distention, no tenderness, positive bowel sounds Extremity: no leg edema or induration Time spent more than 35 minutes Patient Condition at Discharge: Fair Plan - Discharge Summary Discharge Rx Participant: Yes New Discharge Prescriptions: New predniSONE 10 mg PO DIRECTED #30 tab Levofloxacin [Levaquin] 250 mg PO Q48H 7 Days #3 tab Torsemide [Demadex] 40 mg PO DAILY tab Ipratropium-Albuterol Nebulize [Duoneb 0.5 mg-3 mg/3 ml Soln] 3 ml INHALATION RT-QID PRN each PRN Reason: Shortness Of Breath Or Wheezing Melatonin 6 mg PO HS PRN tab PRN Reason: Insomnia Calcium Acetate [PhosLo] 667 mg PO BID-W/MEALS tab Continue Aspirin EC [Ecotrin Low Dose] 81 mg PO DAILY@0900 Ferrous Sulfate [Iron] 325 mg PO BID@0900,2100 Sucralfate [Carafate] 1 gm PO BID@0900,2100 carvediloL [Coreg] 12.5 mg PO BID@0900,2100 NIFEdipine [Procardia XL] 90 mg PO HS@2100 Albuterol Inhaler [Ventolin Hfa Inhaler] 2 puff INHALATION RT-Q6H PRN PRN Reason: Shortness Of Breath INSULIN LISPRO (HumaLOG) [humaLOG] See Protocol SQ ACHS Atorvastatin [Lipitor] 20 mg PO HS@2100 Citalopram Hydrobromide [CeleXA] 20 mg PO DAILY@0900 Vit B Complx C/Folic Acid/Zinc [Renaplex Tablet] 1 tab PO MOWEFR@0900 Losartan [Cozaar] 50 mg PO DAILY@0900 Discontinued Bumetanide [BUMEX] 5 mg PO DAILY@0900 Discharge Medication List Aspirin EC [Ecotrin Low Dose] 81 mg PO DAILY@00 09/19/15 [History] Albuterol Inhaler [Ventolin Hfa Inhaler] 2 puff INHALATION RT-Q6H PRN 10/29/22 [History] Ferrous Sulfate [Iron] 325 mg PO BID@899,209910/29/22 [History] INSULIN LISPRO (HumaLOG) [humaLOG] See Protocol SQ ACHS 10/29/22 [History] NIFEdipine [Procardia XL] 90 mg PO HS@209910/29/22 [History] Sucralfate [Carafate] 1 gm PO BID@899,209910/29/22 [History] Atorvastatin [Lipitor] 20 mg PO HS@209907/06/23 [History] Citalopram Hydrobromide [CeleXA] 20 mg PO DAILY@89907/06/23 [History] Vit B Complx C/Folic Acid/Zinc [Renaplex Tablet] 1 tab PO MOWEFR@89907/06/23 [History] carvediloL [Coreg] 12.5 mg PO BID@899,209907/06/23 [History] Losartan [Cozaar] 50 mg PO DAILY@89907/14/23 [History] Calcium Acetate [PhosLo] 667 mg PO BID-W/MEALS tab 07/22/23 [Rx] Ipratropium-Albuterol Nebulize [Duoneb 0.5 mg-3 mg/3 ml Soln] 3 ml INHALATION RT-QID PRN each 07/22/23 [Rx] Levofloxacin [Levaquin] 250 mg PO Q48H 7 Days #3 tab 07/22/23 [Rx] Melatonin 6 mg PO HS PRN tab 07/22/23 [Rx] Torsemide [Demadex] 40 mg PO DAILY tab 07/22/23 [Rx] predniSONE 10 mg PO DIRECTED #30 tab 07/22/23 [Rx] Follow up Appointment(s)/Referral(s): Dandre Yanes MD [STAFF PHYSICIAN] - 2 Weeks Kenya Bocanegra MD [STAFF PHYSICIAN] - 1 Week Loco Mancuso DO [STAFF PHYSICIAN] - 1 Week Pa Arthur DO [Primary Care Provider] - 1-2 days Discharge Disposition: TRANSFER TO SNF/ECF
--- NOTE | 2023-07-22 10:42 | P.PN ---
Subjective patient is seen for follow-up for end-stage renal disease. patient is seen on hemodialysis. Tolerating treatment well. No significant complaints of shortness of breath. Objective - Vital Signs Vital signs: Vital Signs Temp 97.4 F L 07/22/23 09:00 Pulse 53 L 07/22/23 09:00 Resp 16 07/22/23 09:00 BP 103/51 07/22/23 09:00 Pulse Ox 99 07/22/23 09:00 FiO2 Intake & Output 07/21/23 07/22/23 07/22/23 18:59 06:59 18:59 Intake Total 712 Output Total 0 Balance 712 Intake: Oral 712 Output: Urine 0 Other: Voiding Method Bedside Commode Bedside Commode Bedside Commode Diaper Diaper Diaper # Voids 0 0 # Bowel Movements 0 1 - Exam patient is awake, alert oriented 3 Comfortable examination of the heart S1 and S2 Examination of the lungs bilateral breath sounds are heard Abdomen is soft nontender No significant edema noted ORIENTAL RUG STRETCHER exam grossly intact - Labs CBC & Chem 7: 07/19/23 08:27 07/19/23 08:27 Labs: Abnormal Lab Results - Last 24 Hours (Table) 07/21/23 07/21/23 07/21/23 Range/Units 11:37 16:40 20:02 POC Glucose (mg/dL) 165 H 183 H 218 H (70-110) mg/dL 07/22/23 Range/Units 06:06 POC Glucose (mg/dL) 137 H (70-110) mg/dL Assessment and Plan Assessment: 1. End-stage renal disease maintained on hemodialysis on TTS schedule. 2. Acute hypoxic respiratory failure. No PE noted on CTA. improved post hemod ialysis and ultrafiltration. 3. Volume overload. Improved with ultrafiltration. 4. COPD exacerbation. 5. Acute on chronic diastolic CHF with severe pulmonary hypertension. 6. Anemia of chronic kidney disease. High ferritin noted. Hemoglobin better. 7. Chronic kidney disease mineral bone disease. On PhosLo. Plan: hemodialysis on a TTS schedule Continue with torsemide
[2023-07-22 11:11] VITALS: TEMP 97.4
[2023-07-22 11:35] LABS: Glucose,Whole Blood 153 mg/dL (70-110)
--- NOTE | 2023-07-22 11:43 | P.PN ---
Subjective Progress Note Date: 07/22/23 Principal diagnosis: Hypoxia. This is a 68-year-old female patient with a known history of previous CVA/TIA status post bilateral carotid endarterectomies, chronic kidney disease on hemodialysis on a Wednesday schedule, hypertension, hyperlipidemia, diabetes mellitus severe pulmonary hypertension, diastolic congestive heart failure who resides in a extended care facility. She was brought into the emergency room early this morning with shortness of breath and decreased O2 saturations. This x-ray reveals mild pulmonary vascular congestion. White count 8.9. Hemoglobin 9.5. Platelets 185. D-dimer 1.74. Sodium 134. Potassium 4.8. Bicarb 25. BUN 62. Creatinine 5.58. Glucose 144. proBNP 8000. Troponin negative x 1. Viral screen negative. She is seen today in consultation in the emergency department. She is currently awake and alert. In mild respiratory distress, she is requiring 15 L via nonrebreather mask to maintain O2 saturations in the 90s. She has significant scattered rhonchi and wheezing. The patient is seen today July 15, 2023 in follow-up in the emergency department. She is more awake and alert today. Breathing easier compared to yesterday. She did undergo hemodialysis with 3.4 L of fluid removed. She is still requiring 15 L high flow nasal cannula may not O2 saturations in the upper 90s. She is afebrile. Hemodynamically stable. CT angiogram ruled out pulmonary embolism. There is airspace opacities in left lower lobe with opacified airways possible aspiration pneumonia. White count 8.4. Hemoglobin 9.6. Platelets 194. Sodium 135. Potassium 4.2. Bicarb 26. BUN 43. Creatinine 4.08. Glucose 144. She remains on DuoNeb ventilations, Symbicort, Solu-Medrol. Antibiotics in the form of Levaquin. Remains on oral diuretics. Patient was treated today on 07/16/2023, patient is doing much better today, she underwent hemodialysis yesterday, and tolerated 2 L ultrafiltration yesterday. Patient is now on 6 L nasal cannula, and O2 saturations in the mid 90s. Hardly any pulmonary symptoms patient feels much better since she had her last hemodialysis. Hardly any shortness of breath. WBC count today is 12.1 hemoglobin is 10.5 basic metabolic profile is normal BUN is 71 creatinine 5.15 Patient was evaluated today on 07/17/2023, patient is doing great, however she is back to 8 L nasal cannula with marginal O2 saturation, patient is scheduled to have hemodialysis today, and I think that will help her oxygenation, patient clearly goes into fluid overload easily and she gets much better after hemodialysis. The patient is relatively asymptomatic denies being short of breath, her CBC is normal basic metabolic profile is normal BUN is 57 creatinine 4.15 Patient was evaluated today on 07/18/2023, patient had hemodialysis yesterday, and she is now down to 4 L nasal cannula, patient is steadily improving, feeling better, breathing easierI am planning a follow-up chest x-ray on this patient in the morning, in the meantime the patient is clinically improving and doing well. She is responding well to hemodialysis. WBC count today is 7.7 hemoglobin is 10.6 basic metabolic profile is normal BUN is 53 creatinine 4.3 is Progress note dated July 19, 2023. The patient is seen today in room 370. Currently, she is on 3 L of oxygen. She is not receiving any IV fluids. She has no specific complaints today. She states that her breathing is improved. Current laboratory data includes a white count 6.3, hemoglobin 9.2, hematocrit 28.4, and a platelet count of 203,000. Sodium 130, potassium 3.8, chlorides 93, CO2 27, BUN 85, and creatinine 6.09. Glucose is 213. Calcium is 8.3. Chest x-ray shows opacities, at the left base. There is changes of COPD, without changes of fluid overload. Progress note dated July 20, 2023. The patient is again seen in room 370. The patient is currently undergoing hemodialysis, with a plan to remove 3 L of fluid. She is using oxygen supplementally at 3 L by nasal cannula. The patient is not receiving any IV fluids. Clinically, she appears stable. There is no respiratory distress, or hemodynamic issues at this time. Current labs include a glucose of 166. No new labs today other than the glucose. The labs from yesterday, have been reviewed. The chest x-ray from July 18 is also been reviewed. Progress note dated July 21, 2023. The patient is again seen today in room 370. Currently, the patient is on 3 L. No plans for hemodialysis today. Yesterday, she had hemodialysis, and 2.5 L of fluid was removed. Labs today include only a glucose of 165. The patient is without any distress. She denies any shortness of breath, cough, wheezing, ch est tightness, or phlegm production. She also denies any chest pain or pressure. She denies nausea, vomiting, diarrhea, or abdominal pain. Progress note dated July 22, 2023. The patient is seen today in room 370. The patient is hoping to have hemodialysis today, and then be discharged to rehab. She is currently on 3 L of oxygen by nasal cannula. She is not receiving any IV fluids. The patient has had an uneventful day. There is no shortness of breath, cough, wheezing, chest tightness, or phlegm production. She also denies any chest pain or pressure. No new labs today. Blood glucose today is 153. Objective - Vital Signs Vital signs: Vital Signs Temp 97.4 F L 07/22/23 09:00 Pulse 53 L 07/22/23 09:00 Resp 16 07/22/23 09:00 BP 103/51 07/22/23 09:00 Pulse Ox 99 07/22/23 09:00 FiO2 Intake & Output 07/21/23 07/22/23 07/22/23 18:59 06:59 18:59 Intake Total 712 Output Total 0 Balance 712 Intake: Oral 712 Output: Urine 0 Other: Voiding Method Bedside Commode Bedside Commode Bedside Commode Diaper Diaper Diaper # Voids 0 0 # Bowel Movements 0 1 - Exam No acute distress, oriented 3. No acute respiratory distress. Currently on 3 L of oxygen. HEENT examination is grossly unremarkable. Mucous membranes are moist. No oral lesions. Neck supple. Full range of motion. No adenopathy thyromegaly or neck vein distention. Cardiovascular examination reveals regular rhythm rate. S1-S2 normal. No S3 or S4. No discernible murmur noted. Heart rate 53 bpm. Lungs reveal mostly clear breath sounds. Minimal basilar crackles. No wheezes or rhonchi. Saturations are 99 % on 3 L nasal cannula. Abdomen soft bowel sounds are heard. No masses or tenderness. Extremities are intact. No cyanosis clubbing or edema. Skin is without rash or lesion. Neurologic examination is brief but nonfocal. - Labs CBC & Chem 7: 07/19/23 08:27 07/19/23 08:27 Labs: Abnormal Lab Results - Last 24 Hours (Table) 07/21/23 07/21/23 07/22/23 Range/Units 16:40 20:02 06:06 POC Glucose (mg/dL) 183 H 218 H 137 H (70-110) mg/dL 07/22/23 Range/Units 11:34 POC Glucose (mg/dL) 153 H (70-110) mg/dL Assessment and Plan Assessment: End-stage renal disease, currently on hemodialysis. Acute hypoxemic respiratory failure secondary to acute exacerbation of diastolic CHF, and COPD exacerbation. Severe pulmonary hypertension. End-stage renal disease. Remote history of tobacco use. History of seizure disorder. History of TIA. History of hyperlipidemia. History of hypertension. History of obstructive sleep apnea syndrome, on CPAP. Iron deficiency anemia. Plan: Plan dated July 19, 2023. The patient continues to show improvement. Currently she has been weaned down to 3 L of oxygen. Saturations are in the mid to high 90s. The patient continues on diuretics, bronchodilators, and steroids. Chest x-ray is reviewed. Hopeful discharge within the next 2 or 3 days. Labs, x-rays, and medications are all reviewed. Prognosis is certainly guarded. Solu-Medrol can be converted to prednisone, 30 mg a day. Plan dated July 20, 2023. The patient is seen today in room 370. The patient is currently undergoing hemodialysis. The plan is to remove roughly 3 L of fluid. The patient is on 3 L of oxygen. No IV fluids. Clinically, the patient appears much more stable. She denies any respiratory issues., X-rays, and medications are reviewed. Solu-Medrol be discontinued in favor of prednisone 30 mg a day. We will continue to follow make recommendations along the way. Prognosis is guarded. Plan dated July 21, 2023. The patient is seen today in room 370. She is on 3 L of oxygen. No plans for hemodialysis today. Yesterday, during her hemodialysis session, 2.5 L of fluid was removed. No new labs today other than a glucose, as mentioned above. The patient denies any complaints, specifically shortness of breath, cough, wheezing, chest tightness, or phlegm production. She also denies any chest pain or pressure. She denies any GI or issues. We will continue to follow make recommendations along the way. Prognosis is guarded. Patient is currently not on any antibiotics. Solu-Medrol was discontinued yesterday in favor of prednisone. Plan dated July 22, 2023. The patient typically has hemodialysis on Wednesday, , and Wednesday. She is planning to have hemodialysis today. She remains on 3 L of oxygen. The patient's not receiving any IV fluids. The patient is hoping to be discharged to rehabilitation today. We will continue to follow the patient, make recommendations along the way. The patient's overall prognosis remains very guarded. Labs, x-rays, and all medications are reviewed. Prognosis is certainly very guarded as mentioned above. Time with Patient: Less than 30
[2023-07-22 12:10] VITALS: BMI 22.1
[2023-07-22 15:06] VITALS: BP 106/48; RESP 20
[2023-07-22 16:04] VITALS: PULSE 56
[2023-07-22 16:04] LABS: African American GFR (CKD) 15 (>60 ml/min/1.73 sqM); Anion Gap 5 mmol/L; Blood Urea Nitrogen 55 mg/dL (7-17); Calcium 8.1 mg/dL (8.4-10.2); Carbon Dioxide 29 mmol/L (22-30); Chloride 95 mmol/L (98-107); Glucose 193 mg/dL (74-99); Non-African American GFR(CKD) 13 (>60 ml/min/1.73 sqM); Potassium 4.4 mmol/L (3.5-5.1); Sodium 129 mmol/L (137-145)
== END 2023-07-22 16:08 | DRG 291 ==
LOC: EC 02:28 → 1SOBS 06:01 → 3SCARD 08:19
PROVIDERS: ADMIT Hospitalist; ATTEND Hospitalist
PROC: 5A1D70Z Performance of Urinary Filtration, Intermittent, Less than 6 Hours Per Day (ICD-10-PCS; principal; 2023-07-14)
DX: I13.2 Hypertensive heart and chronic kidney disease with heart failure and with stage 5 chronic kidney disease, or end stage renal disease (principal); I50.33 Acute on chronic diastolic (congestive) heart failure; J96.01 Acute respiratory failure with hypoxia; N18.6 End stage renal disease; I69.354 Hemiplegia and hemiparesis following cerebral infarction affecting left non-dominant side; J44.1 Chronic obstructive pulmonary disease with (acute) exacerbation; I27.20 Pulmonary hypertension, unspecified; E11.22 Type 2 diabetes mellitus with diabetic chronic kidney disease; Z99.2 Dependence on renal dialysis; Z79.4 Long term (current) use of insulin; J18.9 Pneumonia, unspecified organism; E87.1 Hypo-osmolality and hyponatremia; D63.1 Anemia in chronic kidney disease; R54 Age-related physical debility; D50.9 Iron deficiency anemia, unspecified; I25.10 Atherosclerotic heart disease of native coronary artery without angina pectoris; E78.5 Hyperlipidemia, unspecified; G47.33 Obstructive sleep apnea (adult) (pediatric); M89.8X9 Other specified disorders of bone, unspecified site; Y95 Nosocomial condition; Z86.69 Personal history of other diseases of the nervous system and sense organs; Z98.61 Coronary angioplasty status; Z87.891 Personal history of nicotine dependence; Z79.82 Long term (current) use of aspirin; Z79.899 Other long term (current) drug therapy; Z79.52 Long term (current) use of systemic steroids; Z88.8 Allergy status to other drugs, medicaments and biological substances; Z88.1 Allergy status to other antibiotic agents; Z88.0 Allergy status to penicillin
CPT/HCPCS: 36415; 71045; 71275; 78582; 80048; 80053; 82728; 83540; 83550; 83735; 83880; 84100; 84484; 85025; 85379; 85610; 85730; 87636; 90935; 93005; 94640; 94760; 96365; 96366; 96367; 96372; 96375; 96376; 99291

== ENCOUNTER 2023-08-25 02:18 | Inpatient (IN) | payer MEDICARE, OTHER ==
[2023-08-25] MEDS: IPRATROPIUM-ALBUTEROL 3 ML NEB INHALATION STA (02:33)
[2023-08-25 03:18] LABS: Basophils % (A) 0 %; Eosinophils # (A) 0.1 k/uL (0-0.7); Eosinophils % (A) 1 %; HGB 8.3 gm/dL (11.4-16.0); Lymphocytes # (A) 0.6 k/uL (1.0-4.8); Lymphocytes % (A) 5 %; MCH 29.5 pg (25.0-35.0); MCHC 31.8 g/dL (31.0-37.0); MCV 92.9 fL (80.0-100.0); Mean Platelet Volume 7.8; Monocytes # (A) 0.6 k/uL (0-1.0); Monocytes % (A) 5 %; Neutrophils # (A) 10.4 k/uL (1.3-7.7); Neutrophils % (A) 88 %; Platelet Count 190 k/uL (150-450); RDW 15.5 % (11.5-15.5); WBC 11.8 k/uL (3.8-10.6)
[2023-08-25 03:35] LABS: ALT 31 U/L (4-34); AST 25 U/L (14-36); African American GFR (CKD) 11 (>60 ml/min/1.73 sqM); Albumin 3.6 g/dL (3.5-5.0); Alkaline Phosphatase 149 U/L (38-126); Anion Gap 8 mmol/L; Blood Urea Nitrogen 66 mg/dL (7-17); Calcium 8.6 mg/dL (8.4-10.2); Carbon Dioxide 28 mmol/L (22-30); Chloride 99 mmol/L (98-107); Glucose 150 mg/dL (74-99); Magnesium 1.5 mg/dL (1.6-2.3); Non-African American GFR(CKD) 9 (>60 ml/min/1.73 sqM); Potassium 4.9 mmol/L (3.5-5.1); Sodium 135 mmol/L (137-145); Total Bilirubin 0.6 mg/dL (0.2-1.3); Total Protein 5.8 g/dL (6.3-8.2)
[2023-08-25 03:41] LABS: Partial Thromboplastin Time 23.6 sec (22.0-30.0); Prothrombin Time 10.9 sec (10.0-12.5)
[2023-08-25 03:43] LABS: NT-Pro-B-Type Natriuretic Pept 16300 pg/mL
[2023-08-25] MEDS ORDERED: NALOXONE 0.4 MG/ML 1 ML VIAL IV PRN (03:46)
[2023-08-25] MEDS ORDERED: ONDANSETRON 4 MG/2 ML VIAL IVP PRN (03:46)
--- NOTE | 2023-08-25 03:50 | ED ---
General Adult HPI - General Chief complaint: Shortness of Breath Stated complaint: SOB Time Seen by Provider: 08/25/23 02:20 Source: patient, EMS, RN notes reviewed, old records reviewed Mode of arrival: EMS - History of Present Illness Initial comments: Patient is a 68-year-old female with past medical history remarkable for CAD, diabetes, hypertension, ESRD on hemodialysis who presents emergency department for hypoxic respiratory failure and respiratory distress. Is chronically on nasal cannula oxygen at home was found to be in the 50 to 60%'s at her facility. Has not missed dialysis but occasionally she does become fluid overloaded. EMS was called. She does have a history of COPD as well. Patient placed on CPAP by EMS but sats only improved to the 80% at most. Mental status remained unchanged. Patient is a DNR. She presents emergency department for further evaluation. She was placed in trauma bay 1. Patient immediately transitioned to BiPAP. She has no other acute complaints at this time other than the shortness of breath. - Related Data Home Medications Medication Instructions Recorded Confirmed Aspirin EC [Ecotrin Low Dose] 81 mg PO DAILY@89909/19/15 07/14/23 Albuterol Inhaler [Ventolin Hfa 2 puff INHALATION RT-Q6H PRN 10/29/22 07/14/23 Inhaler] Ferrous Sulfate [Iron] 325 mg PO BID@899,209910/29/22 07/14/23 INSULIN LISPRO (HumaLOG) [humaLOG] See Protocol SQ ACHS 10/29/22 07/14/23 NIFEdipine [Procardia XL] 90 mg PO HS@209910/29/22 07/14/23 Sucralfate [Carafate] 1 gm PO BID@0900,209910/29/22 07/14/23 Atorvastatin [Lipitor] 20 mg PO HS@209907/06/23 07/14/23 Citalopram Hydrobromide [CeleXA] 20 mg PO DAILY@89907/06/23 07/14/23 Vit B Complx C/Folic Acid/Zinc 1 tab PO MOWEFR@89907/06/23 07/14/23 [Renaplex Tablet] carvediloL [Coreg] 12.5 mg PO BID@00,209907/06/23 07/14/23 Losartan [Cozaar] 50 mg PO DAILY@0900 07/14/23 07/14/23 Previous Rx's Medication Instructions Recorded Calcium Acetate [PhosLo] 667 mg PO BID-W/MEALS tab 07/22/23 Ipratropium-Albuterol Nebulize 3 ml INHALATION RT-QID PRN each 07/22/23 [Duoneb 0.5 mg-3 mg/3 ml Soln] Levofloxacin [Levaquin] 250 mg PO Q48H 7 Days #3 tab 07/22/23 Melatonin 6 mg PO HS PRN tab 07/22/23 Torsemide [Demadex] 40 mg PO DAILY tab 07/22/23 predniSONE 10 mg PO DIRECTED #30 tab 07/22/23 Allergies Allergy/AdvReac Type Severity Reaction Status Date / Time captopril Allergy Cough Verified 07/14/23 07:24 cephalexin monohydrate Allergy Rash/Hives Verified 07/14/23 07:24 [From Keflex] Penicillins Allergy Rash/Hives Verified 07/14/23 07:24 Review of Systems ROS Statement: Those systems with pertinent positive or pertinent negative responses have been documented in the HPI. Review of Systems: CONST: Denies fever EYES: Denies blurry vision ENT: Denies nasal congestion C/V: Denies Chest pain RESP: Endorses shortness of breath GI: Denies abdominal pain : Denies dysuria SKIN: Denies rash. MSK: Denies joint pain. NEURO: Denies headache ROS Other: All systems not noted in ROS Statement are negative. Past Medical History Past Medical History: Coronary Artery Disease (CAD), CVA/TIA, Diabetes Mellitus, Dialysis, Eye Disorder, Hyperlipidemia, Hypertension, Osteoarthritis (OA), Renal Disease, Sleep Apnea/CPAP/BIPAP Additional Past Medical History / Comment(s): varicose veins (removed), stroke X3-left side weaker uses a walker and w/c-states she usually needs assistance with ambulation, TIA's, AROLDO-no CPAP, hiatal hernia, ESRD - hemodialysis , , . with fistula left forearm, prior peritoneal dialysis catheter removed, urinates frequent small amounts, hx bleeding ulcer. History of Any Multi-Drug Resistant Organisms: None Reported Past Surgical History: Breast Surgery, Heart Catheterization, Orthopedic Surgery Additional Past Surgical History / Comment(s): Bilateral Carotid Endarterectomy, lumpectomy Rt breast, CTR bilateral wrists, pilonidal cyst removal, varicose vein removal, bilateral cataracts removed, Fistula left wrist surgery 2019; Fist lawrence revision 05/30/20., peritoneal dialysis catheter and removal Past Anesthesia/Blood Transfusion Reactions: Previous Problems w/ Anesthesia, Motion Sickness Additional Past Anesthesia/Blood Transfusion Reaction / Comment(s): Had trouble waking up after surgery. no problems with prior blood transfusion Past Psychological History: Anxiety, Depression - Past Family History Mother Family Medical History: Cancer Additional Family Medical History / Comment(s): breast cancer w/ mets Father Family Medical History: Cancer Additional Family Medical History / Comment(s): esophageal cancer Brother(s) Family Medical History: Cancer Additional Family Medical History / Comment(s): colon cancer, esophageal cancer General Exam - General Exam Comments Initial Comments: General: Appears in respiratory distress. HEAD: Normal with no signs of head trauma. EYES: PERRLA, EOMI, conjunctiva normal, no discharge. ENT: Hearing grossly intact, normal oropharynx. RESPIRATORY: Coarse breath sounds bilaterally. Hypoxic on CPAP to 79%. Increased work of breathing. C/V: Regular rate and rhythm. S1 and S2 auscultated, significant symmetric bilateral lower extremity pitting edema, peripheral pulses 2+ and intact throughout.Left upper extremity AV fistula has palpable thrill and audible bruit ABD: Abd is soft, nontender, nondistended EXT: Normal range of motion, no obvious deformity SKIN: No rashes or lesions observed on exposed skin. NEURO: Alert and oriented x 4. No focal deficits. Course Vital Signs 08/25/23 08/25/23 08/25/23 02:20 02:29 02:33 Temperature 98.7 F Pulse Rate 78 70 Respiratory 30 H 26 H Rate Blood Pressure 187/87 O2 Sat by Pulse 90 L Oximetry Fraction of 60 Inspired Oxygen (FIO2) 08/25/23 08/25/23 08/25/23 02:42 02:56 03:00 Temperature Pulse Rate 66 64 63 Respiratory 24 23 21 Rate Blood Pressure 161/71 158/70 O2 Sat by Pulse 93 L 92 L Oximetry Fraction of Inspired Oxygen (FIO2) 08/25/23 08/25/23 08/25/23 03:30 03:47 04:00 Temperature Pulse Rate 60 59 L 60 Respiratory 17 24 19 Rate Blood Pressure 166/73 158/68 158/68 O2 Sat by Pulse 94 L 94 L 95 Oximetry Fraction of Inspired Oxygen (FIO2) 08/25/23 08/25/23 08/25/23 05:00 05:42 06:00 Temperature Pulse Rate 60 63 Respiratory 15 26 H Rate Blood Pressure 165/70 161/72 O2 Sat by Pulse 96 98 Oximetry Fraction of 50 Inspired Oxygen (FIO2) Medical Decision Making - Medical Decision Making Was pt. sent in by a medical professional or institution (, PA, ATHLETIC COACH, urgent care, hospital, or usp...) When possible be specific @ -Sent from nursing facility [facility] on the [place] for respiratory distress. Did you speak to anyone other than the patient for history (EMS, parent, family, police, friend...)? What history was obtained from this source @ -EMS provided transport information for the patient. Did you review nursing and triage notes (agree or disagree)? Why? @ -I reviewed and agree with nursing and triage notes Were old charts reviewed (outside hosp., previous admission, EMS record, old EKG, old radiological studies, urgent care reports/EKG's, usp records)? Report findings @ -Reviewed old charts including charts from nursing facility which reveals pa tient is DNR. Differential Diagnosis (chest pain, altered mental status, abdominal pain women, abdominal pain men, vaginal bleeding, weakness, fever, dyspnea, syncope, headache, dizziness, GI bleed, back pain, seizure, CVA, palpatations, mental health, musculoskeletal)? @ -Differential Dyspnea: Coronary syndrome, arrhythmia, tamponade, asthma, COPD, pulmonary embolism, pneumonia, pneumothorax, pulmonary effusion, anaphylaxis, diabetic ketoacidosis, flailed chest, pulmonary contusion, diaphragmatic rupture, anemia, neuromuscular, this is not meant to be an all-inclusive list. EKG interpreted by me (3pts min.). @ -As above X-rays interpreted by me (1pt min.). @ -Chest x-ray reveals significant bilateral pulmonary vascular congestion CT interpreted by me (1pt min.). @ -None done U/S interpreted by me (1pt. min.). @ -None done What testing was considered but not performed or refused? (CT, X-rays, U/S, labs)? Why? @ -None What meds were considered but not given or refused? Why? @ -None Did you discuss the management of the patient with other professionals (professionals i.e. , PA, ATHLETIC COACH, lab, RT, psych nurse, social research assistant, digital asset coordinator, teacher, senior credit officer, senior case manager)? Give summary @ -Contacted Jason, the nurse practitioner for pulmonology and updated him regarding consult for BiPAP management due to the hypoxic respiratory failure. Spoke with on-call inside horticultural specialty grower, Dr. Montalvo regarding arrangement for dialysis, and dialysis will be arranged for 7 AM at this time, as patient seems to be doing well on BiPAP. I will contact him if any updates. [facility]. Was smoking cessation discussed for >3mins.? @ -No Was critical care preformed (if so, how long)? @ -Yes, 35 minutes Were there social determinants of health that impacted care today? How? (Homelessness, low income, unemployed, alcoholism, drug addiction, transportation, low edu. Level, literacy, decrease access to med. care, detention, rehab)? @ -No Was there de-escalation of care discussed even if they declined (Discuss DNR or withdrawal of care, Hospice)? DNR status @ -DNR confirmed on paperwork from nursing facility. What co-morbidities impacted this encounter? (DM, HTN, Smoking, COPD, CAD, Cancer, CVA, ARF, Chemo, Hep., AIDS, mental health diagnosis, sleep apnea, morbid obesity)? @ -ESRD on hemodialysis Was patient admitted / discharged? Hospital course, mention meds given and route, prescriptions, significant lab abnormalities, going to OR and other pertinent info. @ -Patient presents as volume overload state with hypoxic respiratory failure. Immediately transitioned to BiPAP therapy upon arrival. Patient clinically improved rather rapidly. Pulse ox went from 80% to low 90%. Work of breathing also improved. Patient feels improved as well at this time. Will obtain basic workup but I will contact nephrology for possible dialysis emergently versus later this morning. She was in agreement this plan. EKG shows no signs of acute ischemia. Chest x-ray shows current significant bilateral pulmonary vascular congestion. Laboratory studies remarkable for chronic anemia which is stable. Elevated BUN and creatinine in the setting of ESRD on hemodialysis. Mild hypomagnesemia of 1.5. BNP is elevated to 16,000. I spoke with on-call nephrology, Dr. Montalvo we both agree that patient can likely wait until 7 AM this morning for dialysis. He will arrange for it. I spoke with Jason the nurse practitioner for pulmonology who agreed to evaluate the patient for BiPAP management. I spoke with the admitting team, [facility] Garcia who accepted the admission. Undiagnosed new problem with uncertain prognosis? @ -No Drug Therapy requiring intensive monitoring for toxicity (Heparin, Nitro, Insulin, Cardizem)? @ -No Were any procedures done? @ -No Diagnosis/symptom? @ -Volume overload resulting in hypoxic respiratory failure requiring BiPAP administration in the setting of ESRD on hemodialysis Acute, or Chronic, or Acute on Chronic? @ -Acute Uncomplicated (without systemic symptoms) or Complicated (systemic symptoms)? @ -Complicated Side effects of treatment? @ -No Exacerbation, Progression, or Severe Exacerbation? @ -No Poses a threat to life or bodily function? How? (Chest pain, [place], AL, pneumonia, PE, COPD, DKA, ARF, appy, cholecystitis, CVA, Diverticulitis, Homicidal, Suicidal, threat to staff... and all critical care pts) @ -Yes - Lab Data Result diagrams: 08/25/23 02:32 08/25/23 02:32 Lab Results 08/25/23 08/25/23 08/25/23 Range/Units 02:32 02:32 02:32 WBC 11.8 H (3.8-10.6) k/uL RBC 2.80 L (3.80-5.40) m/uL Hgb 8.3 L (11.4-16.0) gm/dL Hct 26.0 L (34.0-46.0) % MCV 92.9 (80.0-100.0) fL MCH 29.5 (25.0-35.0) pg MCHC 31.8 (31.0-37.0) g/dL RDW 15.5 (11.5-15.5) % Plt Count 190 (150-450) k/uL MPV 7.8 Neutrophils % 88 % Lymphocytes % 5 % Monocytes % 5 % Eosinophils % 1 % Basophils % 0 % Neutrophils # 10.4 H (1.3-7.7) k/uL Lymphocytes # 0.6 L (1.0-4.8) k/uL Monocytes # 0.6 (0-1.0) k/uL Eosinophils # 0.1 (0-0.7) k/uL Basophils # 0.0 (0-0.2) k/uL PT 10.9 (10.0-12.5) sec INR 1.0 (<1.2) APTT 23.6 (22.0-30.0) sec Sodium 135 L (137-145) mmol/L Potassium 4.9 (3.5-5.1) mmol/L Chloride 99 (98-107) mmol/L Carbon Dioxide 28 (22-30) mmol/L Anion Gap 8 mmol/L BUN 66 H (7-17) mg/dL Creatinine 4.49 H (0.52-1.04) mg/dL Est GFR (CKD-EPI)AfAm 11 (>60 ml/min/1.73 sqM) Est GFR (CKD-EPI)NonAf 9 (>60 ml/min/1.73 sqM) Glucose 150 H (74-99) mg/dL Calcium 8.6 (8.4-10.2) mg/dL Magnesium 1.5 L (1.6-2.3) mg/dL Total Bilirubin 0.6 (0.2-1.3) mg/dL AST 25 (14-36) U/L ALT 31 (4-34) U/L Alkaline Phosphatase 149 H (38-126) U/L NT-Pro-B Natriuret Pep 56083 pg/mL Total Protein 5.8 L (6.3-8.2) g/dL Albumin 3.6 (3.5-5.0) g/dL - EKG Data -: EKG Interpreted by Me EKG Comments: 12-lead Electrocardiogram Interpretation Note EKG was reviewed and interpreted by myself. 12-lead ECG performed at 0219 is interpreted by me as revealing normal sinus rhythm with incomplete right bundle branch block at a rate of 85 beats per minute. [place] is normal. FL interval is 182 ms, QRS duration is 101 ms, QTc is 457 ms.. There were no ST or T wave abnormalities to suggest myocardial ischemia or injury. R wave progression across the precordium was satisfactory. By my interpretation this EKG is non- diagnostic for acute ischemia. Critical Care Time Critical Care Time: Yes Total Critical Care Time: 35 Disposition Clinical Impression: Hypoxic respiratory failure, Volume overload, ESRD (end stage renal disease) on dialysis Disposition: ADMITTED IP TO THIS HOSP Condition: Serious Time of Disposition: 03:50
--- NOTE | 2023-08-25 04:39 | XR ---
EXAM: XR Chest, 1 View CLINICAL HISTORY: Dyspnea TECHNIQUE: Frontal view of the chest. COMPARISON: 07/19/2023. FINDINGS: Heart is enlarged. Diffuse interstitial prominence with asymmetric distribution sparing left upper lobe. No definite pleural effusion or pneumothorax. Bones are unremarkable. IMPRESSION: Cardiomegaly. Diffuse interstitial prominence likely CHF with underlying lung disease versus multifocal pneumonias.
[2023-08-25] MEDS: FUROSEMIDE 10 MG/ML 10 ML VIAL IV STA (04:47)
[2023-08-25] MEDS ORDERED: IPRATROPIUM-ALBUTEROL 3 ML NEB INHALATION PRN ×2 (05:20→06:42)
--- NOTE | 2023-08-25 05:20 | P.CNPUL ---
History of Present Illness Consult date: 08/25/23 Requesting physician: Shakir Alberto Reason for consult: other (Acute hypoxemic respiratory failure, BiPAP management, fluid overload) Chief complaint: Shortness of breath and hypoxia History of present illness: Patient is a 68-year-old white female with past medical history significant for end-stage renal disease (maintained on hemodialysis Wednesday, Wednesday, Wednesday schedule), heart failure, hypertension, hyperlipidemia, diabetes mellitus, CVA/TIA, carotid artery stenosis status post bilateral carotid endarterectomies, COPD, obstructive sleep apnea. Patient currently resides at [facility] [place] the [place]. She was noted to be hypoxic with an SpO2 of 50 to 60% at the outside facility, reportedly on a couple liters of supplemental oxygen. She was initially placed on a 15 L nonrebreather. She was then transferred via EMS with CPAP to [facility] emergency department. On arrival, patient was placed on BiPAP. Chest x-ray on arrival shows cardiomegaly, pulmonary vascular c ongestion, and diffuse interstitial infiltrates most consistent with pulmonary edema. Patient is currently in the emergency department, trauma bay 1. She is alert, fully oriented, and calm. She remains on BiPAP with current settings of 12/5 and FiO2 of 60%. Generating tidal volumes of around 350-450. Respiratory rate is in the mid 20s. She states that she is currently on a Wednesday, Wednesday, Wednesday schedule for hemodialysis. Denies missing any treatments. She does report increased lower extremity swelling over the last couple weeks. Reportedly still voids small amounts of urine 3-4 times a day. Denies any infectious symptoms such as fever, coughing, sputum production. Denies any c hest pain, heart palpitations, lightheadedness, or syncopal events. She has no other complaints other than her shortness of breath. Of note, patient had a recent hospitalization last month with similar presentation. She was also treated for a possible superimposed left lower lobe pneumonia at that time, and completed a course of p.o. Levaquin. Currently afebrile. CBC: WBC count 11.8, hemoglobin 8.3, hematocrit 26, platelets 190. BMP: Sodium 135, potassium 4.9, chloride 99, serum bicarb 28, BUN 66, creatinine 4.49, glucose 150. NT proBNP 16,300. ECG shows normal sinus rhythm, incomplete rbbb, and is non-diagnostic for acute ischemia. She is currently a DO NOT RESUSCITATE/DO NOT INTUBATE status. Remaining vital signs are stable. Review of Systems REVIEW OF SYSTEMS: CONSTITUTIONAL: Denies any recent significant weight loss or weight gain. EYES: Denies change in vision. EARS, NOSE, MOUTH, THROAT: Denies headaches, denies sore throat. CARDIOVASCULAR: See HPI RESPIRATORY: See HPI. GASTROINTESTINAL: Denies change in appetite, abdominal pain, nausea and vomiting, or diarrhea GENITOURINARY: Denies hematuria, denies infections. MUSKULOSKELETAL: Denies pain, denies swelling. INTEGUMENTARY: Denies rash, denies eczema. NEUROLOGICAL: Denies recent memory loss, no recent seizure activity. PSYCHIATRIC: Denies anxiety, denies depression. HEMATOLOGIC/LYMPHATIC: Denies anemia, denies enlarged lymph node Past Medical History Past Medical History: Coronary Artery Disease (CAD), CVA/TIA, Diabetes Mellitus, Dialysis, Eye Disorder, Hyperlipidemia, Hypertension, Osteoarthritis (OA), Renal Disease, Sleep Apnea/CPAP/BIPAP Additional Past Medical History / Comment(s): varicose veins (removed), stroke X3-left side weaker uses a walker and w/c-states she usually needs assistance w ith ambulation, TIA's, AROLDO-no CPAP, hiatal hernia, ESRD - hemodialysis , , . with fistula left forearm, prior peritoneal dialysis catheter removed, urinates frequent small amounts, hx bleeding ulcer. History of Any Multi-Drug Resistant Organisms: None Reported Past Surgical History: Breast Surgery, Heart Catheterization, Orthopedic Surgery Additional Past Surgical History / Comment(s): Bilateral Carotid Endarterectomy, lumpectomy Rt breast, CTR bilateral wrists, pilonidal cyst removal, varicose vein removal, bilateral cataracts removed, Fistula left wrist surgery 2019; Fistula revision 05/30/20., peritoneal dialysis catheter and removal Past Anesthesia/Blood Transfusion Reactions: Previous Problems w/ Anesthesia, Motion Sickness Additional Past Anesthesia/Blood Transfusion Reaction / Comment(s): Had trouble waking up after surgery. no problems with prior blood transfusion Past Psychological History: Anxiety, Depression - Past Family History Mother Family Medical History: Cancer Additional Family Medical History / Comment(s): breast cancer w/ mets Father Family Medical History: Cancer Additional Family Medical History / Comment(s): esophageal cancer Brother(s) Family Medical History: Cancer Additional Family Medical History / Comment(s): colon cancer, esophageal cancer Medications and Allergies Home Medications Medication Instructions Recorded Confirmed Type Aspirin EC [Ecotrin Low Dose] 81 mg PO DAILY@89909/19/15 07/14/23 History Albuterol Inhaler [Ventolin Hfa 2 puff INHALATION RT-Q6H PRN 10/29/22 07/14/23 History Inhaler] Ferrous Sulfate [Iron] 325 mg PO BID@899,209910/29/22 07/14/23 History INSULIN LISPRO (HumaLOG) [humaLOG] See Protocol SQ ACHS 10/29/22 07/14/23 History NIFEdipine [Procardia XL] 90 mg PO HS@209910/29/22 07/14/23 History Sucralfate [Carafate] 1 gm PO BID@0900,209910/29/22 07/14/23 History Atorvastatin [Lipitor] 20 mg PO HS@209907/06/23 07/14/23 History Citalopram Hydrobromide [CeleXA] 20 mg PO DAILY@89907/06/23 07/14/23 History Vit B Complx C/Folic Acid/Zinc 1 tab PO MOWEFR@89907/06/23 07/14/23 History [Renaplex Tablet] carvediloL [Coreg] 12.5 mg PO BID@0900,209907/06/23 07/14/23 History Losartan [Cozaar] 50 mg PO DAILY@89907/14/23 07/14/23 History Calcium Acetate [PhosLo] 667 mg PO BID-W/MEALS tab 07/22/23 Rx Ipratropium-Albuterol Nebulize 3 ml INHALATION RT-QID PRN each 07/22/23 Rx [Duoneb 0.5 mg-3 mg/3 ml Soln] Levofloxacin [Levaquin] 250 mg PO Q48H 7 Days #3 tab 07/22/23 Rx Melatonin 6 mg PO HS PRN tab 07/22/23 Rx Torsemide [Demadex] 40 mg PO DAILY tab 07/22/23 Rx predniSONE 10 mg PO DIRECTED #30 tab 07/22/23 Rx Allergies Allergy/AdvReac Type Severity Reaction Status Date / Time captopril Allergy Cough Verified 05/08/24 07:24 cephalexin monohydrate Allergy Rash/Hives Verified 07/14/23 07:24 [From Keflex] Penicillins Allergy Rash/Hives Verified 07/14/23 07:24 Physical Exam Vitals: Vital Signs Temp Pulse Resp BP Pulse Ox FiO2 08/25/23 03:47 59 L 24 158/68 94 L 08/25/23 03:30 60 17 166/73 94 L 08/25/23 03:00 63 21 158/70 92 L 08/25/23 02:56 64 23 161/71 93 L 08/25/23 02:42 66 24 08/25/23 02:33 70 26 H 08/25/23 02:29 60 08/25/23 02:20 98.7 F 78 30 H 187/87 90 L Intake and Output 08/24/23 08/24/23 08/25/23 14:59 22:59 06:59 Other: Weight 84.368 kg GENERAL EXAM: Alert, 68-year-old white female, currently on BiPAP with the previous mentioned settings, fairly comfortable in no apparent distress. HEAD: Normocephalic and atraumatic EYES: Normal reaction of pupils, equal size. NOSE: Clear with pink turbinates. THROAT: No erythema or exudates. NECK: No masses, no JVD. Remote appearing bilateral incisions correlating with previous history of bilateral carotid endarterectomy CHEST: No chest wall deformity. LUNGS: Equal air entry with minimal bibasilar inspiratory crackles. On BiPAP with settings 12/5 and FiO2 of 60%. SpO2 96%. No conversational dyspnea or accessory muscle use. CVS: S1 and S2 normal with no audible murmur, regular rhythm. No extra heart sounds ABDOMEN: No hepatosplenomegaly, active bowel sounds, no guarding or rigidity. SPINE: No scoliosis or deformity SKIN: No rashes CENTRAL NERVOUS SYSTEM: No focal deficits, tone is normal in all 4 extremities. EXTREMITIES: Bilateral lower extremity 3-4+ pitting edema. Left forearm fistula with positive thrill and bruit. No clubbing or cyanosis. Peripheral pulses are intact. Results - Laboratory Findings CBC and BMP: 08/25/23 02:32 08/25/23 02:32 PT/INR, D-dimer PT 10.9 sec (10.0-12.5) 08/25/23 02:32 INR 1.0 (<1.2) 08/25/23 02:32 Abnormal lab findings: Abnormal Labs 08/25/23 08/25/23 02:32 02:32 WBC 11.8 H RBC 2.80 L Hgb 8.3 L Hct 26.0 L Neutrophils # 10.4 H Lymphocytes # 0.6 L Sodium 135 L BUN 66 H Creatinine 4.49 H Glucose 150 H Magnesium 1.5 L Alkaline Phosphatase 149 H Total Protein 5.8 L - Diagnostic Findings Chest x-ray: image reviewed Assessment and Plan Assessment: Acute hypoxemic respiratory failure, currently requiring bipap support, secondary to suspected exacerbation of diastolic congestive heart failure and fluid overload. Chest x-ray on arrival shows cardiomegaly, pulmonary vascular congestion, and diffuse interstitial infiltrates most consistent with pulmonary edema.. End-stage renal disease, maintained on hemodialysis with a Wednesday, Wednesday, Wednesday schedule. Reportedly has not missed any hemodialysis treatments. Severe pulmonary hypertension Chronic obstructive pulmonary disease, stable Anemia of chronic disease Remote history of former tobacco dependence History of hyperlipidemia Hypertension History of diabetes mellitus, insulin dependent History of bilateral carotid artery stenosis, status post bilateral carotid endarterectomies History of CVA/TIA History of obstructive sleep apnea with CPAP Plan: Continue BiPAP support with current settings until her fluid status can be addressed Patient reportedly not anuric, give dose of Lasix 80 mg IV once now Nephrology reportedly already contacted, and has scheduled the patient for emergent hemodialysis which will take place at 0700. Follow up chest x-ray ordered Patient has a DO NOT RESUSCITATE/DO NOT INTUBATE status. Overall prognosis is guarded. We will continue to follow I have personally seen and examined the patient, performed the documentation and the assessment and plan as written. Number of minutes spent on the visit:20 Time with Patient: Greater than 30
[2023-08-25] MEDS ORDERED: MELATONIN 3 MG TABLET PO PRN (06:42)
[2023-08-25] MEDS ORDERED: ALBUTEROL HFA INHALER INHALATION PRN (06:42)
[2023-08-25] MEDS ORDERED: DEXTROSE 50% SYRINGE 50 ML IVP PRN ×2 (06:46)
[2023-08-25] MEDS: IPRATROPIUM-ALBUTEROL 3 ML NEB INHALATION SCH (07:27)
[2023-08-25 07:38] LABS: Glucose,Whole Blood 158 mg/dL (70-110)
[2023-08-25] MEDS: INSULIN ASPART (NovoLOG) 100 UNIT/ML VIAL SQ SCH ×2 (07:38→12:06)
[2023-08-25] MEDS: HEPARIN SODIUM,PORCINE 5,000 UNIT/ML 1 ML VIAL SQ SCH (07:38)
[2023-08-25] MEDS: MAGNESIUM SULFATE-D5W PMX 1 GM in DEXTROSE/WATER 1 100ML.BAG IVPB ONE ×2 (07:39→10:35)
--- NOTE | 2023-08-25 08:42 | XR ---
EXAMINATION TYPE: XR chest 1V portable DATE OF EXAM: 08/25/2023 6:10 AM CLINICAL INDICATION:Female, 68 years old with history of fluid overload; pulmonary edema; [facility] COMPARISON: Chest radiographs from 08/24/2023 TECHNIQUE: XR chest 1V portable Frontal view of the chest. FINDINGS: Lungs/Pleura: There is no evidence of pleural effusion, focal consolidation, or pneumothorax. Pulmonary vascularity: Pulmonary vascular congestion. Heart/mediastinum: Cardiomediastinal silhouette is enlarged and stable. Musculoskeletal: No acute osseous pathology. IMPRESSION: Multifocal airspace opacities correlate which could be compatible with pulmonary vascular congestion.
--- NOTE | 2023-08-25 09:41 | P.HPIM ---
History of Present Illness 58-year-old female with history of end-stage renal disease is admitted with shortness of breath patient did not miss any dialysis patient is compliant with the diet. Patient was started on BiPAP. Patient is undergoing hemodialysis removal of 4.5 L today patient usually Wednesday and Wednesday schedule hemodialysis patient has increased lower extremity swelling patient has mild leukocytosis without any evidence of pneumonia at this time or any other infection. Patient white count is 11.8 patient is chronic end-stage renal disease patient with present creatinine of 4.49. Review of systems: All other review of systems are negative except those mentioned above PHYSICAL EXAMINATION: GENERAL: The patient is alert and oriented x3, not in any acute distress. Obese and on BiPAP HEENT: Pupils are round and equally reacting to light. EOMI. No scleral icterus. No conjunctival pallor. Normocephalic, atraumatic. No pharyngeal erythema. No thyromegaly. CARDIOVASCULAR: S1 and S2 present. No murmurs, rubs, or gallops. PULMONARY: Chest is clear to auscultation, no wheezing or crackles. ABDOMEN: Soft, nontender, nondistended, normoactive bowel sounds. No palpable organomegaly. MUSCULOSKELETAL: No joint swelling or deformity. EXTREMITIES: No cyanosis, clubbing, patient does have bilateral lower extremity edema NEUROLOGICAL: Gross neurological examination did not reveal any focal deficits. SKIN: No rashes. Assessment and plan Acute hypoxic respiratory failure: Secondary to volume overload on end-stage renal disease patient, continue with dialysis patient received Lasix but does not make much urine. -Severe pulmonary hypertension -Chronic obstructive pulmonary disease without any acute exacerbation patient does not have any significant wheezing on exam -Anemia of chronic kidney disease -Hyperlipidemia -Hypertension -Type 2 diabetes mellitus insulin-dependent -History of CVA in the past -Sleep apnea for which patient is on CPAP which will be continued DVT prophylaxis: Subcutaneous heparin Past Medical History Past Medical History: Coronary Artery Disease (CAD), CVA/TIA, Diabetes Mellitus, Dialysis, Eye Disorder, Hyperlipidemia, Hypertension, Osteoarthritis (OA), Renal Disease, Sleep Apnea/CPAP/BIPAP Additional Past Medical History / Comment(s): varicose veins (removed), stroke X3-left side weaker uses a walker and w/c-states she usually needs assistance with ambulation, TIA's, AROLDO-no CPAP, hiatal hernia, ESRD - hemodialysis , , SA. with fistula left forearm, prior peritoneal dialysis catheter removed, uri nates frequent small amounts, hx bleeding ulcer. History of Any Multi-Drug Resistant Organisms: None Reported Past Surgical History: Breast Surgery, Heart Catheterization, Orthopedic Surgery Additional Past Surgical History / Comment(s): Bilateral Carotid Endarterectomy, lumpectomy Rt breast, CTR bilateral wrists, pilonidal cyst removal, varicose vein removal, bilateral cataracts removed, Fistula left wrist surgery 2019; Fistula revision 05/30/20., peritoneal dialysis catheter and removal Past Anesthesia/Blood Transfusion Reactions: Previous Problems w/ Anesthesia, Motion Sickness Additional Past Anesthesia/Blood Transfusion Reaction / Comment(s): Had trouble waking up after surgery. no problems with prior blood transfusion Past Psychological History: Anxiety, Depression - Past Family History Mother Family Medical History: Cancer Additional Family Medical History / Comment(s): breast cancer w/ mets Father Family Medical History: Cancer Additional Family Medical History / Comment(s): esophageal cancer Brother(s) Family Medical History: Cancer Additional Family Medical History / Comment(s): colon cancer, esophageal cancer Medications and Allergies Home Medications Medication Instructions Recorded Confirmed Type Aspirin EC [Ecotrin Low Dose] 81 mg PO HS 09/19/15 08/25/23 History Albuterol Inhaler [Ventolin Hfa 2 puff INHALATION RT-Q6H PRN 10/29/22 08/25/23 History Inhaler] Ferrous Sulfate [Iron] 325 mg PO BID@0500,1700 10/29/22 08/25/23 History INSULIN LISPRO (HumaLOG) [humaLOG] See Protocol SQ ACHS 10/29/22 08/25/23 History NIFEdipine [Procardia XL] 90 mg PO HS 10/29/22 08/25/23 History Sucralfate [Carafate] 1 gm PO BID@0500,1700 10/29/22 08/25/23 History Atorvastatin [Lipitor] 20 mg PO HS 07/06/23 08/25/23 History Citalopram Hydrobromide [CeleXA] 20 mg PO HS 07/06/23 08/25/23 History Vit B Complx C/Folic Acid/Zinc 1 tab PO MOWEFR@2100 07/06/23 08/25/23 History [Renaplex Tablet] carvediloL [Coreg] 12.5 mg PO BID@0500,1700 07/06/23 08/25/23 History Losartan [Cozaar] 50 mg PO DAILY@1700 07/14/23 08/25/23 History Ipratropium-Albuterol Nebulize 3 ml INHALATION RT-QID PRN each 07/22/23 08/25/23 Rx [Duoneb 0.5 mg-3 mg/3 ml Soln] Melatonin 6 mg PO HS PRN tab 07/22/23 08/25/23 Rx Amino Acids/Protein Hydrolys 30 ml PO BID@1200,2100 08/25/23 08/25/23 History [Pro-Stat Awc Liquid] Calcium Acetate [PhosLo] 1,334 mg PO MOWEFR@,,08/25/23 08/25/23 History Calcium Acetate [Phoslo] 1,334 mg PO SUTUTHSA@,,08/25/23 08/25/23 History Torsemide [Demadex] 40 mg PO DAILY@0500 08/25/23 08/25/23 History Allergies Allergy/AdvReac Type Severity Reaction Status Date / Time captopril Allergy Cough Verified 08/25/23 06:44 cephalexin monohydrate Allergy Rash/Hives Verified 08/25/23 06:44 [From Keflex] Penicillins Allergy Rash/Hives Verified 08/25/23 06:44 Physical Exam Vitals: Vital Signs Temp Pulse Resp BP Pulse Ox FiO2 08/25/23 08:22 64 21 169/78 98 08/25/23 07:40 70 22 08/25/23 07:30 69 22 50 08/25/23 06:00 63 26 H 161/72 98 08/25/23 05:42 50 08/25/23 05:00 60 15 165/70 96 08/25/23 04:00 60 19 158/68 95 08/25/23 03:47 59 L 24 158/68 94 L 08/25/23 03:30 60 17 166/73 94 L 08/25/23 03:00 63 21 158/70 92 L 08/25/23 02:56 64 23 161/71 93 L 08/25/23 02:42 66 24 08/25/23 02:33 70 26 H 08/25/23 02:29 60 08/25/23 02:20 98.7 F 78 30 H 187/87 90 L Intake and Output 08/24/23 08/25/23 08/25/23 22:59 06:59 14:59 Other: Weight 84.368 kg Results CBC & Chem 7: 08/25/23 02:32 08/25/23 02:32 Labs: Abnormal Lab Results - Last 24 Hours (Table) 08/25/23 08/25/23 08/25/23 Range/Units 02:32 02:32 07:36 WBC 11.8 H (3.8-10.6) k/uL RBC 2.80 L (3.80-5.40) m/uL Hgb 8.3 L (11.4-16.0) gm/dL Hct 26.0 L (34.0-46.0) % Neutrophils # 10.4 H (1.3-7.7) k/uL Lymphocytes # 0.6 L (1.0-4.8) k/uL Sodium 135 L (137-145) mmol/L BUN 66 H (7-17) mg/dL Creatinine 4.49 H (0.52-1.04) mg/dL Glucose 150 H (74-99) mg/dL POC Glucose (mg/dL) 158 H (70-110) mg/dL Magnesium 1.5 L (1.6-2.3) mg/dL Alkaline Phosphatase 149 H (38-126) U/L Total Protein 5.8 L (6.3-8.2) g/dL
[2023-08-25] MEDS ORDERED: Magnesium Replacement Protocol 1 EACH MISC MISCELLANE PRN (09:42)
[2023-08-25] MEDS ORDERED: NON FORMULARY DRUG (Amino Acids/Protein Hydrolys [Pro-Stat Awc Liquid] 887 ML Liquid) PO SCH (12:00)
[2023-08-25 12:05] LABS: Glucose,Whole Blood 108 mg/dL (70-110)
--- NOTE | 2023-08-25 12:18 | P.NPCON ---
History of Present Illness - Reason for Consult end stage renal disease - History of Present Illness Reason for consultation: End-stage renal disease History of present illness: Patient is a 68-year-old female seen in renal consultation for end-stage renal disease. She is maintained on hemodialysis on Wednesday schedule. Last hemodialysis was on Wednesday. Patient presented to the hospital due to shortness of breath. She was noted to be hypoxic with oxygen saturation in 50 to 60% range. EMS brought her to the hospital. She was initially on CPAP and then was put on BiPAP but she remained hypoxic. Patient is a DNR. Chest x-ray suggestive of fluid overload. She is currently seen while undergoing hemodialysis and trying for 4 L ultrafiltration. Blood pressure is stable. Patient is currently not able to provide much history. She does have history of diabetes and hypertension. No fever. Vital signs are stable. General: Resting in bed. HEENT: On BiPAP. LUNGS: Scattered rhonchi. HEART: Rate and Rhythm are regular. ABDOMEN: Nontender. EXTREMITITES: 3+ edema. Past Medical History Past Medical History: Coronary Artery Disease (CAD), CVA/TIA, Diabetes Mellitus, Dialysis, Eye Disorder, Hyperlipidemia, Hypertension, Osteoarthritis (OA), Renal Disease, Sleep Apnea/CPAP/BIPAP Additional Past Medical History / Comment(s): varicose veins (removed), stroke X3-left side weaker uses a walker and w/c-states she usually needs assistance with ambulation, TIA's, AROLDO-no CPAP, hiatal hernia, ESRD - hemodialysis , , . with fistula left forearm, prior peritoneal dialysis catheter removed, urinates frequent small amounts, hx bleeding ulcer. History of Any Multi-Drug Resistant Organisms: None Reported Past Surgical History: Breast Surgery, Heart Catheterization, Orthopedic Surgery Additional Past Surgical History / Comment(s): Bilateral Carotid Endarterectomy, lumpectomy Rt breast, CTR bilateral wrists, pilonidal cyst removal, varicose vein removal, bilateral cataracts removed, Fistula left wrist surgery 2019; Fistula revision 05/30/20., peritoneal dialysis catheter and removal Past Anesthesia/Blood Transfusion Reactions: Previous Problems w/ Anesthesia, Motion Sickness Additional Past Anesthesia/Blood Transfusion Reaction / Comment(s): Had trouble waking up after surgery. no problems with prior blood transfusion Past Psychological History: Anxiety, Depression - Past Family History Mother Family Medical History: Cancer Additional Family Medical History / Comment(s): breast cancer w/ mets Father Family Medical History: Cancer Additional Family Medical History / Comment(s): esophageal cancer Brother(s) Family Medical History: Cancer Additional Family Medical History / Comment(s): colon cancer, esophageal cancer Medications and Allergies Home Medications Medication Instructions Recorded Confirmed Type Aspirin EC [Ecotrin Low Dose] 81 mg PO HS 09/19/15 08/25/23 History Albuterol Inhaler [Ventolin Hfa 2 puff INHALATION RT-Q6H PRN 10/29/22 08/25/23 History Inhaler] Ferrous Sulfate [Iron] 325 mg PO BID@0500,1700 10/29/22 08/25/23 History INSULIN LISPRO (HumaLOG) [humaLOG] See Protocol SQ ACHS 10/29/22 08/25/23 History NIFEdipine [Procardia XL] 90 mg PO HS 10/29/22 08/25/23 History Sucralfate [Carafate] 1 gm PO BID@0500,1700 10/29/22 08/25/23 History Atorvastatin [Lipitor] 20 mg PO HS 07/06/23 08/25/23 History Citalopram Hydrobromide [CeleXA] 20 mg PO HS 07/06/23 08/25/23 History Vit B Complx C/Folic Acid/Zinc 1 tab PO MOWEFR@209907/06/23 08/25/23 History [Renaplex Tablet] carvediloL [Coreg] 12.5 mg PO BID@0500,1700 07/06/23 08/25/23 History Losartan [Cozaar] 50 mg PO DAILY@1700 07/14/23 08/25/23 History Ipratropium-Albuterol Nebulize 3 ml INHALATION RT-QID PRN each 07/22/23 08/25/23 Rx [Duoneb 0.5 mg-3 mg/3 ml Soln] Melatonin 6 mg PO HS PRN tab 07/22/23 08/25/23 Rx Amino Acids/Protein Hydrolys 30 ml PO BID@1200,2100 08/25/23 08/25/23 History [Pro-Stat Awc Liquid] Calcium Acetate [PhosLo] 1,334 mg PO MOWEFR@05,13,17 08/25/23 08/25/23 History Calcium Acetate [Phoslo] 1,334 mg PO SUTUTHSA@09,13,17 08/25/23 08/25/23 History Torsemide [Demadex] 40 mg PO DAILY@0500 08/25/23 08/25/23 History Allergies Allergy/AdvReac Type Severity Reaction Status Date / Time captopril Allergy Cough Verified 08/25/23 06:44 cephalexin monohydrate Allergy Rash/Hives Verified 08/25/23 06:44 [From Keflex] Penicillins Allergy Rash/Hives Verified 08/25/23 06:44 Physical Exam Vitals: Vital Signs Temp Pulse Resp BP Pulse Ox FiO2 08/25/23 11:45 69 22 08/25/23 11:35 68 23 50 08/25/23 08:22 64 21 169/78 98 08/25/23 07:40 70 22 08/25/23 07:30 69 22 50 08/25/23 06:00 63 26 H 161/72 98 08/25/23 05:42 50 08/25/23 05:00 60 15 165/70 96 08/25/23 04:00 60 19 158/68 95 08/25/23 03:47 59 L 24 158/68 94 L 08/25/23 03:30 60 17 166/73 94 L 08/25/23 03:00 63 21 158/70 92 L 08/25/23 02:56 64 23 161/71 93 L 08/25/23 02:42 66 24 08/25/23 02:33 70 26 H 08/25/23 02:29 60 08/25/23 02:20 98.7 F 78 30 H 187/87 90 L Intake and Output 08/24/23 08/25/23 08/25/23 22:59 06:59 14:59 Other: Weight 84.368 kg Results - Lab Results Most recent lab results Calcium 8.6 mg/dL (8.4-10.2) 08/25/23 02:32 Magnesium 1.5 mg/dL (1.6-2.3) L 08/25/23 02:32 08/25/23 02:32 08/25/23 02:32 Assessment and Plan Plan: Assessment: 1. End-stage renal disease maintained on hemodialysis on Wednesday schedule. 2. Acute toxic respiratory failure secondary to volume overload. 3. Chronic kidney disease mineral bone disease maintained on PhosLo. 4. Hypertension with chronic kidney disease. Stable. 5. Hypomagnesemia from poor intake and diuretic use. 6. Acute on chronic diastolic CHF with mild mitral stenosis and mild mitral regurgitation and severe pulmonary hypertension. 7. Diabetes mellitus. 8. Anemia of chronic kidney disease. Plan: Currently seen while undergoing hemodialysis. Challenge ultrafiltration. Plan for another treatment of dialysis tomorrow. Check iron studies. Check phosphorus level. Wean FiO2. Thank you for the consultation. I will continue to follow the patient with you during her hospital stay.
[2023-08-25 13:46] LABS: Phosphorus 2.9 mg/dL (2.5-4.5)
[2023-08-25] MEDS: CALCIUM ACETATE 667 MG TAB PO SCH (14:34)
[2023-08-25] MEDS ORDERED: HEPARIN SODIUM,PORCINE 5,000 UNIT/ML 1 ML VIAL SQ SCH (16:00)
[2023-08-25 16:49] LABS: Glucose,Whole Blood 104 mg/dL (70-110)
[2023-08-25] MEDS: SUCRALFATE 1 GM TAB PO SCH (17:02)
[2023-08-25] MEDS: carvediloL 12.5 MG TAB PO SCH (17:02)
[2023-08-25] MEDS: LOSARTAN 50 MG TAB PO SCH (17:02)
[2023-08-25 19:01] LABS: % Iron Saturation 33.85 (12.00-45.00)
[2023-08-25] MEDS: CITALOPRAM HYDROBROMIDE 20 MG TAB PO SCH (22:29)
[2023-08-25] MEDS: ATORVASTATIN 20 MG TAB PO SCH (22:29)
[2023-08-25] MEDS: ASPIRIN 81 MG PO SCH (22:29)
[2023-08-25] MEDS: NIFEdipine XL 90 MG TAB.ER.24 PO SCH (22:30)
[2023-08-26] MEDS: TORSEMIDE 20 MG TAB PO SCH (05:39)
[2023-08-26 05:46] LABS: Glucose,Whole Blood 104 mg/dL (70-110)
[2023-08-26] MEDS: CALCIUM ACETATE 667 MG TAB PO SCH (08:04)
[2023-08-26 08:49] LABS: Basophils % (A) 1 %; Eosinophils # (A) 0.1 k/uL (0-0.7); Eosinophils % (A) 1 %; HCT 22.9 % (34.0-46.0); HGB 7.3 gm/dL (11.4-16.0); Lymphocytes # (A) 0.8 k/uL (1.0-4.8); Lymphocytes % (A) 19 %; MCH 29.7 pg (25.0-35.0); MCHC 31.9 g/dL (31.0-37.0); MCV 93.2 fL (80.0-100.0); Mean Platelet Volume 7.8; Monocytes # (A) 0.3 k/uL (0-1.0); Monocytes % (A) 8 %; Neutrophils # (A) 2.8 k/uL (1.3-7.7); Neutrophils % (A) 68 %; Platelet Count 161 k/uL (150-450); RBC 2.46 m/uL (3.80-5.40); RDW 15.4 % (11.5-15.5)
[2023-08-26 09:13] LABS: ALT 24 U/L (4-34); AST 19 U/L (14-36); African American GFR (CKD) 13 (>60 ml/min/1.73 sqM); Alkaline Phosphatase 116 U/L (38-126); Anion Gap 3 mmol/L; Blood Urea Nitrogen 42 mg/dL (7-17); Calcium 8.5 mg/dL (8.4-10.2); Carbon Dioxide 34 mmol/L (22-30); Chloride 96 mmol/L (98-107); Glucose 92 mg/dL (74-99); Magnesium 1.8 mg/dL (1.6-2.3); Non-African American GFR(CKD) 11 (>60 ml/min/1.73 sqM); Potassium 4.4 mmol/L (3.5-5.1); Sodium 133 mmol/L (137-145); Total Bilirubin 0.6 mg/dL (0.2-1.3); Total Protein 5.1 g/dL (6.3-8.2)
--- NOTE | 2023-08-26 10:53 | P.PN ---
Subjective Patient is seen in follow-up for end-stage renal disease. She is maintained on hemodialysis on Wednesday schedule. Receiving extra treatment of dialysis today. Tolerating treatment well. Now on nasal cannula. Awake and alert. Vital signs are stable. General: No acute distress. HEENT: Head exam is unremarkable. On nasal cannula. LUNGS: No audible rhonchi or wheezes. HEART: Rate and Rhythm are regular. ABDOMEN: Nontender. EXTREMITITES: 1+ edema. Objective - Vital Signs Vital signs: Vital Signs Temp 97.4 F L 08/26/23 07:59 Pulse 54 L 08/26/23 08:29 Resp 14 08/26/23 07:59 BP 122/61 08/26/23 07:59 Pulse Ox 90 L 08/26/23 08:57 FiO2 50 08/26/23 07:59 Intake & Output 08/25/23 08/26/23 08/26/23 18:59 06:59 18:59 Intake Total 500 0 Output Total 4500 0 Balance -4000 0 Weight 85 kg Intake: Oral 0 Hemodialysis 500 Output: Urine 0 Hemodialysis 4500 Other: Voiding Method External Catheter # Bowel Movements 0 - Labs CBC & Chem 7: 08/26/23 08:33 08/26/23 08:33 Labs: Abnormal Lab Results - Last 24 Hours (Table) 08/25/23 08/26/23 08/26/23 Range/Units 13:04 08:33 08:33 RBC 2.46 L (3.80-5.40) m/uL Hgb 7.3 L (11.4-16.0) gm/dL Hct 22.9 L (34.0-46.0) % Lymphocytes # 0.8 L (1.0-4.8) k/uL Sodium 133 L (137-145) mmol/L Chloride 96 L (98-107) mmol/L Carbon Dioxide 34 H (22-30) mmol/L BUN 42 H (7-17) mg/dL Creatinine 3.87 H (0.52-1.04) mg/dL Transferrin 186.0 L (204.0-354.0) mg/dL Ferritin 1470.0 H (10.0-291.0) ng/mL Total Protein 5.1 L (6.3-8.2) g/dL Albumin 3.0 L (3.5-5.0) g/dL Assessment and Plan Plan: Assessment: 1. End-stage renal disease maintained on hemodialysis on Wednesday schedule. 2. Acute hypoxic respiratory failure secondary to volume overload. 3. Chronic kidney disease mineral bone disease maintained on PhosLo. Phosphorus level 2.9 dated August 25, 2023. 4. Hypertension with chronic kidney disease. Stable. 5. Hypomagnesemia from poor intake and diuretic use. Replaced. Better. 6. Acute on chronic diastolic CHF with mild mitral stenosis and mild mitral regurgitation and severe pulmonary hypertension. 7. Diabetes mellitus. 8. Anemia of chronic kidney disease. Iron replete. Plan: Currently seen while undergoing hemodialysis. Challenge ultrafiltration. Another treatment tomorrow per her outpatient schedule. Add Aranesp. Wean FiO2. Hold PhosLo.
[2023-08-26 11:30] LABS: Glucose,Whole Blood 112 mg/dL (70-110)
--- NOTE | 2023-08-26 13:55 | P.PN ---
Subjective Progress Note Date: 08/26/23 Principal diagnosis: Acute hypoxic respiratory failure secondary to acute diastolic congestive heart failure and fluid overload. In the setting of end-stage renal disease and dio re pulmonary hypertension as well as chronic obstructive lung disease Patient is a 68-year-old white female with past medical history significant for end-stage renal disease (maintained on hemodialysis Wednesday, Wednesday, Wednesday schedule), heart failure, hypertension, hyperlipidemia, diabetes mellitus, CVA/TIA, carotid artery stenosis status post bilateral carotid endarterectomies, COPD, obstructive sleep apnea. Patient currently resides at [facility] on the [place]. She was noted to be hypoxic with an SpO2 of 50 to 60% at the outside facility, reportedly on a couple liters of supplemental oxygen. She was initially placed on a 15 L nonrebreather. She was then transferred via EMS with CPAP to [facility] emergency department. On arrival, patient was placed on BiPAP. Chest x-ray on arrival shows cardiomegaly, pulmonary vascular congestion, and diffuse interstitial infiltrates most consistent with pulmonary edema. Patient is currently in the emergency department, trauma bay 1. She is alert, fully oriented, and calm. She remains on BiPAP with current settings of 12/5 and FiO2 of 60%. Generating tidal volumes of around 350-450. Respiratory rate is in the mid 20s. She states that she is currently on a Wednesday, Wednesday, Wednesday schedule for hemodialysis. Denies missing any treatments. She does report increased lower extremity swelling over the last couple weeks. Reportedly still voids small amounts of urine 3-4 times a day. Denies any infectious symptoms such as fever, coughing, sputum production. Denies any chest pain, heart palpitations, lightheadedness, or syncopal events. She has no other complaints other than her shortness of breath. Of note, patient had a recent hospitalization last month with similar presentation. She was also treated for a possible superimposed left lower lobe pneumonia at that time, and completed a course of p.o. Levaquin. Currently afebrile. CBC: WBC count 11.8, hemoglobin 8.3, hematocrit 26, platelets 190. BMP: Sodium 135, potassium 4.9, chloride 99, serum bicarb 28, BUN 66, creatinine 4.49, glucose 150. NT proBNP 16,300. ECG shows normal sinus rhythm, incomplete rbbb, and is non-diagnostic for acute ischemia. She is currently a DO NOT RESUSCITATE/DO NOT INTUBATE status. Remaining vital signs are stable. Patient was reevaluated today on 08/26/2023, patient is undergoing hemodialysis, she is doing great. She is now on 4 L nasal cannula and O2 sats is 93%. Doing much better compared to how she was yesterday, she is awake, alert oriented x 3, she does not seem to be in any form of respiratory distress. WBC count is 4.0 hemoglobin 7.3 basic metabolic profile is normal bicarb is 34 BUN is 42 creatinine 3.87 chest x-ray has been done today, however will have a follow-up chest x-ray in the next 24 hours. Objective - Vital Signs Vital signs: Vital Signs Temp 97.4 F L 08/26/23 07:59 Pulse 58 L 08/26/23 11:55 Resp 16 08/26/23 11:55 BP 125/58 08/26/23 11:55 Pulse Ox 93 L 08/26/23 11:55 FiO2 50 08/26/23 07:59 Intake & Output 08/25/23 08/26/23 08/26/23 18:59 06:59 18:59 Intake Total 500 0 236 Output Total 4500 0 Balance -4000 0 236 Weight 85 kg Intake: Oral 0 236 Hemodialysis 500 Output: Urine 0 Hemodialysis 4500 Other: Voiding Method External Catheter # Bowel Movements 0 - Exam GENERAL EXAM: Alert, 68-year-old white female, on nasal cannula, not in distress HEAD: Normocephalic and atraumatic EYES: Normal reaction of pupils, equal size. NOSE: Clear with pink turbinates. THROAT: No erythema or exudates. NECK: No masses, no JVD. Remote appearing bilateral incisions correlating with previous history of bilateral carotid endarterectomy CHEST: No chest wall deformity. LUNGS: Symmetrical chest expansion, minimal crackles at the bases no rhonchi no wheezes CVS: S1 and S2 normal with no audible murmur, regular rhythm. No extra heart sounds ABDOMEN: No hepatosplenomegaly, active bowel sounds, no guarding or rigidity. SKIN: No rashes CENTRAL NERVOUS SYSTEM: Alert and oriented x 3 no gross focal deficit EXTREMITIES: 2-3+ bipedal edema with left forearm fistula - Labs CBC & Chem 7: 08/26/23 08:33 08/26/23 08:33 Labs: Abnormal Lab Results - Last 24 Hours (Table) 08/25/23 08/26/23 08/26/23 Range/Units 13:04 08:33 08:33 RBC 2.46 L (3.80-5.40) m/uL Hgb 7.3 L (11.4-16.0) gm/dL Hct 22.9 L (34.0-46.0) % Lymphocytes # 0.8 L (1.0-4.8) k/uL Sodium 133 L (137-145) mmol/L Chloride 96 L (98-107) mmol/L Carbon Dioxide 34 H (22-30) mmol/L BUN 42 H (7-17) mg/dL Creatinine 3.87 H (0.52-1.04) mg/dL POC Glucose (mg/dL) (70-110) mg/dL Transferrin 186.0 L (204.0-354.0) mg/dL Ferritin 1470.0 H (10.0-291.0) ng/mL Total Protein 5.1 L (6.3-8.2) g/dL Albumin 3.0 L (3.5-5.0) g/dL 08/26/23 Range/Units 11:29 RBC (3.80-5.40) m/uL Hgb (11.4-16.0) gm/dL Hct (34.0-46.0) % Lymphocytes # (1.0-4.8) k/uL Sodium (137-145) mmol/L Chloride (98-107) mmol/L Carbon Dioxide (22-30) mmol/L BUN (7-17) mg/dL Creatinine (0.52-1.04) mg/dL POC Glucose (mg/dL) 112 H (70-110) mg/dL Transferrin (204.0-354.0) mg/dL Ferritin (10.0-291.0) ng/mL Total Protein (6.3-8.2) g/dL Albumin (3.5-5.0) g/dL Assessment and Plan Assessment: Impression: Acute hypoxic respiratory failure secondary to fluid overload, suspect acute exacerbation of diastolic congestive heart failure in the setting of end-stage renal disease, patient is normally on hemodialysis has not been missing any of her dialysis treatments. Underlying COPD End-stage renal disease, on hemodialysis Severe pulmonary hypertension Anemia of chronic disease Ex-smoker Benign essential hypertension Type 2 diabetes History of CVA/TIA History of obstructive sleep apnea syndrome normally on CPAP Recommendation: Continue hemodialysis Continue bronchodilators Continue present supportive care measures Continue oxygen and titrate accordingly Continue to monitor daily labs Will continue to follow Time with Patient: Less than 30
[2023-08-26 14:23] VITALS: BMI 29.3
[2023-08-26 16:47] LABS: Glucose,Whole Blood 145 mg/dL (70-110)
[2023-08-26] MEDS: DARBEPOETIN ALFA 40 MCG/0.4 ML SYRINGE SQ SCH (18:08)
[2023-08-26 20:14] LABS: Glucose,Whole Blood 131 mg/dL (70-110)
[2023-08-27 05:28] VITALS: RESP 16
[2023-08-27 05:41] LABS: Glucose,Whole Blood 104 mg/dL (70-110)
--- NOTE | 2023-08-27 06:12 | P.PN ---
Subjective Progress Note Date: 08/26/23 58-year-old female with history of end-stage renal disease is admitted with shortness of breath patient did not miss any dialysis patient is compliant with the diet. Patient was started on BiPAP. Patient is undergoing hemodialysis with removal of 4.5 L today patient usually Wednesday and Wednesday schedule hemodialysis patient has increased lower extremity swelling patient has mild leukocytosis without any evidence of pneumonia at this time or any other infection. Patient white count is 11.8 patient is chronic end-stage renal disease patient with present creatinine of 4.49. 08/26/2023 Patient seen in follow-up today currently on 4 L and was intermittently using BiPAP and will continue to wean FiO2 as tolerated. Patient reports she does not wear oxygen outpatient. Continue on hemodialysis and patient is scheduled on Wednesday/Wednesday/Fridays. Nephrology is following. Review of systems: Constitutional: No reports of fatigue, fever, or chills Cardiovascular: No reports of chest pain or palpitations Respiratory: reports of shortness of breath with minimal exertion although feels that slightly improved from admission GI: No reports of nausea, vomiting, or diarrhea : No reports of dysuria or retention Neurovascular: reports of generalized weakness All medications have been reviewed PHYSICAL EXAMINATION: GENERAL: The patient is alert and oriented x3, not in any acute distress. Currently on 4 L via nasal cannula HEENT: Pupils are round and equally reacting to light. EOMI. No scleral icterus. No conjunctival pallor. Normocephalic, atraumatic. No pharyngeal erythema. No thyromegaly. CARDIOVASCULAR: S1 and S2 present. No murmurs, rubs, or gallops. PULMONARY: Diminished breath sounds bilaterally otherwise chest is clear to auscultation, no wheezing, faint crackles at the bases ABDOMEN: Soft, nontender, nondistended, normoactive bowel sounds. No palpable organomegaly. MUSCULOSKELETAL: No joint swelling or deformity. EXTREMITIES: No cyanosis, clubbing, patient does have bilateral lower extremity edema NEUROLOGICAL: Gross neurological examination did not reveal any focal deficits. Diffusely weak SKIN: No rashes. Assessment and plan -Acute hypoxic respiratory failure: Secondary to volume overload on end-stage renal disease patient, continue with dialysis patient received Lasix but does not make much urine. -Severe pulmonary hypertension -Chronic obstructive pulmonary disease without any acute exacerbation patient does not have any significant wheezing on exam -Anemia of chronic kidney disease -Hyperlipidemia -Hypertension -Type 2 diabetes mellitus insulin-dependent -History of CVA in the past -Sleep apnea for which patient is on CPAP which will be continued GI prophylaxis DVT prophylaxis: Subcutaneous heparin No code Plan: Patient currently receiving hemodialysis with nephrology following. Patient is maintained on Wednesday/Wednesday/Wednesday. Follow-up on repeat labs Currently on 4 L and was using BiPAP. Patient does not wear oxygen outpatient and will continue to wean FiO2 as tolerated Continue renal diet Will discuss with case management/social work regarding discharge planning as patient is currently at ECF and will likely return Due to multiple complex medical issues, overall prognosis is guarded The impression and plan of care has been dictated by Radha Parikh, Nurse Practitioner as directed. Dr. Jose Elias MD I have performed a history and examination and MDM of this patient, discussed the same with the dictator, and agree with the dictator's assessment and plan as written ,documented as a scribe. Based on total visit time, I have performed more than 50% of the visit. Objective - Vital Signs Vital signs: Vital Signs Temp 97.4 F L 08/26/23 07:59 Pulse 54 L 08/26/23 08:29 Resp 14 08/26/23 07:59 BP 122/61 08/26/23 07:59 Pulse Ox 90 L 08/26/23 08:57 FiO2 50 08/26/23 07:59 Intake & Output 08/25/23 08/26/23 08/26/23 18:59 06:59 18:59 Intake Total 500 0 Output Total 4500 0 Balance -4000 0 Weight 85 kg Intake: Oral 0 Hemodialysis 500 Output: Urine 0 Hemodialysis 4500 Other: Voiding Method External Catheter # Bowel Movements 0 - Labs CBC & Chem 7: 08/26/23 08:33 08/26/23 08:33 Labs: Abnormal Lab Results - Last 24 Hours (Table) 08/25/23 08/26/23 08/26/23 Range/Units 13:04 08:33 08:33 RBC 2.46 L (3.80-5.40) m/uL Hgb 7.3 L (11.4-16.0) gm/dL Hct 22.9 L (34.0-46.0) % Lymphocytes # 0.8 L (1.0-4.8) k/uL Sodium 133 L (137-145) mmol/L Chloride 96 L (98-107) mmol/L Carbon Dioxide 34 H (22-30) mmol/L BUN 42 H (7-17) mg/dL Creatinine 3.87 H (0.52-1.04) mg/dL Transferrin 186.0 L (204.0-354.0) mg/dL Ferritin 1470.0 H (10.0-291.0) ng/mL Total Protein 5.1 L (6.3-8.2) g/dL Albumin 3.0 L (3.5-5.0) g/dL
[2023-08-27 09:38] LABS: Basophils % (A) 0 %; Eosinophils # (A) 0.1 k/uL (0-0.7); Eosinophils % (A) 1 %; HCT 21.3 % (34.0-46.0); HGB 7.1 gm/dL (11.4-16.0); Lymphocytes # (A) 0.9 k/uL (1.0-4.8); Lymphocytes % (A) 17 %; MCH 30.5 pg (25.0-35.0); MCHC 33.3 g/dL (31.0-37.0); MCV 91.6 fL (80.0-100.0); Monocytes # (A) 0.5 k/uL (0-1.0); Monocytes % (A) 9 %; Neutrophils # (A) 3.8 k/uL (1.3-7.7); Neutrophils % (A) 70 %; Platelet Count 178 k/uL (150-450); RBC 2.32 m/uL (3.80-5.40); RDW 15.9 % (11.5-15.5); WBC 5.4 k/uL (3.8-10.6)
[2023-08-27 09:54] LABS: African American GFR (CKD) 13 (>60 ml/min/1.73 sqM); Anion Gap 4 mmol/L; Blood Urea Nitrogen 44 mg/dL (7-17); Calcium 8.5 mg/dL (8.4-10.2); Carbon Dioxide 35 mmol/L (22-30); Chloride 95 mmol/L (98-107); Glucose 118 mg/dL (74-99); Magnesium 1.6 mg/dL (1.6-2.3); Non-African American GFR(CKD) 11 (>60 ml/min/1.73 sqM); Potassium 4.2 mmol/L (3.5-5.1); Sodium 134 mmol/L (137-145)
[2023-08-27] MEDS ORDERED: Magnesium Replacement Protocol 1 EACH MISC MISCELLANE PRN (10:17)
[2023-08-27] MEDS: MAGNESIUM SULFATE-D5W PMX 1 GM in DEXTROSE/WATER 1 100ML.BAG IVPB ONE (10:49)
[2023-08-27 11:19] LABS: Glucose,Whole Blood 157 mg/dL (70-110)
--- NOTE | 2023-08-27 11:45 | P.PN ---
Subjective Patient is seen in follow-up for end-stage renal disease. She is maintained on hemodialysis on Wednesday schedule. Sitting up in chair. Edema improved. Denies chest pain or shortness of breath. Vital signs are stable. General: No acute distress. HEENT: Head exam is unremarkable. On nasal cannula. LUNGS: No audible rhonchi or wheezes. HEART: Rate and Rhythm are regular. ABDOMEN: Nontender. EXTREMITITES: 1+ edema. Objective - Vital Signs Vital signs: Vital Signs Temp 98.4 F 08/27/23 08:00 Pulse 55 L 08/27/23 11:18 Resp 16 08/27/23 11:39 BP 134/57 08/27/23 11:18 Pulse Ox 93 L 08/27/23 11:39 FiO2 50 08/26/23 07:59 Intake & Output 08/26/23 08/27/23 08/27/23 18:59 06:59 18:59 Intake Total 916 0 0 Output Total 3500 0 Balance -2584 0 0 Weight 85 kg 77 kg Intake: Oral 416 0 0 Hemodialysis 500 Output: Urine 0 Hemodialysis 3500 Other: # Voids 1 0 # Bowel Movements 0 - Labs CBC & Chem 7: 08/27/23 08:44 08/27/23 08:44 Labs: Abnormal Lab Results - Last 24 Hours (Table) 08/26/23 08/26/23 08/27/23 Range/Units 16:46 20:13 08:44 RBC 2.32 L (3.80-5.40) m/uL Hgb 7.1 L (11.4-16.0) gm/dL Hct 21.3 L (34.0-46.0) % RDW 15.9 H (11.5-15.5) % Lymphocytes # 0.9 L (1.0-4.8) k/uL Sodium (137-145) mmol/L Chloride (98-107) mmol/L Carbon Dioxide (22-30) mmol/L BUN (7-17) mg/dL Creatinine (0.52-1.04) mg/dL Glucose (74-99) mg/dL POC Glucose (mg/dL) 145 H 131 H (70-110) mg/dL 08/27/23 08/27/23 Range/Units 08:44 11:17 RBC (3.80-5.40) m/uL Hgb (11.4-16.0) gm/dL Hct (34.0-46.0) % RDW (11.5-15.5) % Lymphocytes # (1.0-4.8) k/uL Sodium 134 L (137-145) mmol/L Chloride 95 L (98-107) mmol/L Carbon Dioxide 35 H (22-30) mmol/L BUN 44 H (7-17) mg/dL Creatinine 3.80 H (0.52-1.04) mg/dL Glucose 118 H (74-99) mg/dL POC Glucose (mg/dL) 157 H (70-110) mg/dL Assessment and Plan Plan: Assessment: 1. End-stage renal disease maintained on hemodialysis on Wednesday schedule. 2. Acute hypoxic respiratory failure secondary to volume overload. Improved. 3. Chronic kidney disease mineral bone disease maintained on PhosLo. Phosphorus level 2.9 dated August 25, 2023. PhosLo held. 4. Hypertension with chronic kidney disease. Stable. 5. Hypomagnesemia from poor intake and diuretic use. Replaced. Stable. 6. Acute on chronic diastolic CHF with mild mitral stenosis and mild mitral regurgitation and severe pulmonary hypertension. 7. Diabetes mellitus. 8. Anemia of chronic kidney disease. Iron replete. On Aranesp. Plan: Hemodialysis today. Advised patient to maintain low-salt diet and 50 ounce fluid restriction per day upon discharge. Potential discharge to ECF after dialysis today
--- NOTE | 2023-08-27 13:22 | P.PN ---
Subjective Progress Note Date: 08/27/23 Principal diagnosis: Acute hypoxic respiratory failure secondary to acute diastolic congestive heart failure and fluid overload. In the setting of end-stage renal disease and dio re pulmonary hypertension as well as chronic obstructive lung disease Patient is a 68-year-old white female with past medical history significant for end-stage renal disease (maintained on hemodialysis Wednesday, Wednesday, Wednesday schedule), heart failure, hypertension, hyperlipidemia, diabetes mellitus, CVA/TIA, carotid artery stenosis status post bilateral carotid endarterectomies, COPD, obstructive sleep apnea. Patient currently resides at [facility] on the [address]. She was noted to be hypoxic with an SpO2 of 50 to 60% at the outside facility, reportedly on a couple liters of supplemental oxygen. She was initially placed on a 15 L nonrebreather. She was then transferred via EMS with CPAP to [facility] emergency department. On arrival, patient was placed on BiPAP. Chest x-ray on arrival shows cardiomegaly, pulmonary vascular congestion, and diffuse interstitial infiltrates most consistent with pulmonary edema. Patient is currently in the emergency department, trauma bay 1. She is alert, fully oriented, and calm. She remains on BiPAP with current settings of 12/5 and FiO2 of 60%. Generating tidal volumes of around 350-450. Respiratory rate is in the mid 20s. She states that she is currently on a Wednesday, Wednesday, Wednesday schedule for hemodialysis. Denies missing any treatments. She does report increased lower extremity swelling over the last couple weeks. Reportedly still voids small amounts of urine 3-4 times a day. Denies any infectious symptoms such as fever, coughing, sputum production. Denies any chest pain, heart palpitations, lightheadedness, or syncopal events. She has no other complaints other than her shortness of breath. Of note, patient had a recent hospitalization last month with similar presentation. She was also treated for a possible superimposed left lower lobe pneumonia at that time, and completed a course of p.o. Levaquin. Currently afebrile. CBC: WBC count 11.8, hemoglobin 8.3, hematocrit 26, platelets 190. BMP: Sodium 135, potassium 4.9, chloride 99, serum bicarb 28, BUN 66, creatinine 4.49, glucose 150. NT proBNP 16,300. ECG shows normal sinus rhythm, incomplete rbbb, and is non-diagnostic for acute ischemia. She is currently a DO NOT RESUSCITATE/DO NOT INTUBATE status. Remaining vital signs are stable. Patient was reevaluated today on 08/26/2023, patient is undergoing hemodialysis, she is doing great. She is now on 4 L nasal cannula and O2 sats is 93%. Doing much better compared to how she was yesterday, she is awake, alert oriented x 3, she does not seem to be in any form of respiratory distress. WBC count is 4.0 hemoglobin 7.3 basic metabolic profile is normal bicarb is 34 BUN is 42 creatinine 3.87 chest x-ray has been done today, however will have a follow-up chest x-ray in the next 24 hours. Patient was evaluated today on 08/27/2023, patient is feeling better, she is maintained on hemodialysis Wednesday schedule, her pulmonary edema is improving but not resolved, patient is feeling better breathing easier, patient is on room air with O2 saturation of 93%. Objective - Vital Signs Vital signs: Vital Signs Temp 98.4 F 08/27/23 08:00 Pulse 60 08/27/23 12:12 Resp 16 08/27/23 11:39 BP 134/57 08/27/23 11:18 Pulse Ox 93 L 08/27/23 11:39 FiO2 50 08/26/23 07:59 Intake & Output 08/26/23 08/27/23 08/27/23 18:59 06:59 18:59 Intake Total 916 0 0 Output Total 3500 0 Balance -2584 0 0 Weight 85 kg 77 kg Intake: Oral 416 0 0 Hemodialysis 500 Output: Urine 0 Hemodialysis 3500 Other: # Voids 1 0 # Bowel Movements 0 - Exam GENERAL EXAM: Alert, 68-year-old white female, on room air HEAD: Normocephalic and atraumatic EYES: Normal reaction of pupils, equal size. NOSE: Clear with pink turbinates. THROAT: No erythema or exudates. NECK: No masses, no JVD. Remote appearing bilateral incisions correlating with previous history of bilateral carotid endarterectomy CHEST: No chest wall deformity. LUNGS: Fine crackles at the bases persist. CVS: S1 and S2 normal with no audible murmur, regular rhythm. No extra heart sounds ABDOMEN: No hepatosplenomegaly, active bowel sounds, no guarding or rigidity. SKIN: No rashes CENTRAL NERVOUS SYSTEM: Alert and oriented x 3 no gross focal deficit EXTREMITIES: 2+ bipedal edema, left arm hemodialysis fistula is noted - Labs CBC & Chem 7: 08/27/23 08:44 08/27/23 08:44 Labs: Abnormal Lab Results - Last 24 Hours (Table) 08/26/23 08/26/23 08/27/23 Range/Units 16:46 20:13 08:44 RBC 2.32 L (3.80-5.40) m/uL Hgb 7.1 L (11.4-16.0) gm/dL Hct 21.3 L (34.0-46.0) % RDW 15.9 H (11.5-15.5) % Lymphocytes # 0.9 L (1.0-4.8) k/uL Sodium (137-145) mmol/L Chloride (98-107) mmol/L Carbon Dioxide (22-30) mmol/L BUN (7-17) mg/dL Creatinine (0.52-1.04) mg/dL Glucose (74-99) mg/dL POC Glucose (mg/dL) 145 H 131 H (70-110) mg/dL 08/27/23 08/27/23 Range/Units 08:44 11:17 RBC (3.80-5.40) m/uL Hgb (11.4-16.0) gm/dL Hct (34.0-46.0) % RDW (11.5-15.5) % Lymphocytes # (1.0-4.8) k/uL Sodium 134 L (137-145) mmol/L Chloride 95 L (98-107) mmol/L Carbon Dioxide 35 H (22-30) mmol/L BUN 44 H (7-17) mg/dL Creatinine 3.80 H (0.52-1.04) mg/dL Glucose 118 H (74-99) mg/dL POC Glucose (mg/dL) 157 H (70-110) mg/dL Assessment and Plan Assessment: Impression: Acute hypoxic respiratory failure secondary to fluid overload, suspect acute exacerbation of diastolic congestive heart failure in the setting of end-stage renal disease, patient is normally on hemodialysis has not been missing any of her dialysis treatments. Underlying COPD End-stage renal disease, on hemodialysis Severe pulmonary hypertension Anemia of chronic disease Ex-smoker Benign essential hypertension Type 2 diabetes History of CVA/TIA History of obstructive sleep apnea syndrome normally on CPAP Recommendation: Continue hemodialysis Continue bronchodilators Continue present supportive care measures Continue to monitor daily labs Will continue to follow Time with Patient: Less than 30
--- NOTE | 2023-08-27 13:25 | P.DS ---
Providers Date of admission: 08/25/23 03:46 Expected date of discharge: 08/27/23 Attending physician: Ej Gordillo Consults: 08/25/23 02:41 Consult Physician Urgent Consulting Provider: Uday Montalvo Consult Reason/Comments: volume overload, dialysis Do you want consulting provider notified?: Already Contacted 08/25/23 03:07 Consult Physician Routine Consulting Provider: Dandre Yanes Consult Reason/Comments: volume overload, dyspnea, bipap Do you want consulting provider notified?: Yes Primary care physician: Dipesh Beckett Hospital Course: Final diagnosis -Acute hypoxic respiratory failure: Secondary to volume overload on end-stage renal disease patient -Severe pulmonary hypertension -Chronic obstructive pulmonary disease without any acute exacerbation -Anemia of chronic kidney disease -Hyperlipidemia -Hypertension -Type 2 diabetes mellitus insulin-dependent -History of CVA in the past -Sleep apnea for which patient is on CPAP which will be continued GI prophylaxis DVT prophylaxis: Subcutaneous heparin No code Discharge disposition Patient is being discharged in a stable condition with guarded prognosis to [facility]. Patient will follow-up with Dr. Beckett in the outpatient setting upon discharge. Patient is to continue with hemodialysis as scheduled on Wednesday/Wednesday/Wednesday. Patient to follow-up with nephrology outpatient. Total time taken is greater than 35 minutes. Hospital course This is a 68-year-old female who was recently admitted with significant hypoxic respiratory failure placed on BiPAP due to volume overload as patient is known to have end-stage renal disease maintained on hemodialysis. Patient reports did not miss any sessions although continues to require increased oxygen demands. Patient currently room air on exam today with supplemental oxygen as needed. Patient has not required BiPAP. Patient does have also significant history of sleep apnea and recommend to continue with CPAP at night. Patient has been seen and evaluated by nephrology underwent additional dialysis treatment and is scheduled to have dialysis today on her normal schedule day prior to discharge to [facility]. Patient has been cleared by consultations. Please refer to consultation note for further HPI. Currently no reports of chest pain, shortness of breath, or palpitations. Patient is afebrile. No reports of nausea or vomiting and patient is tolerating diet. Patient will be discharged to [facility]. Guarded prognosis and high risk for readmissions given patient's significant comorbidities. Physical exam: Gen: This is a 68-year-old female who is awake, alert and oriented x 2-3, baseline, well-developed, elderly appearing HEENT: Head is atraumatic, normocephalic. Pupils equal, round. Sclerae is anicteric. NECK: Supple. No JVD. No lymphadenopathy. No thyromegaly. LUNGS: Diminished breath sounds bilaterally otherwise clear to auscultation. No wheezes or rhonchi. No intercostal retractions. HEART: S1, S2 are muffled ABDOMEN: Soft. Bowel sounds are present. No masses. No tenderness. EXTREMITIES: No pedal edema. No calf tenderness. NEUROLOGICAL: Patient is awake, alert and oriented x2-3. Cranial nerves 2 through 12 are grossly intact. Diffusely weak Please refer to medication reconciliation sheet for a list of medications. The impression and plan of care has been dictated by Radha Parikh, Nurse Practitioner as directed. Dr. Jose Elias MD I have performed a history and examination and MDM of this patient, discussed the same with the dictator, and agree with the dictator's assessment and plan as written ,documented as a scribe. Based on total visit time, I have performed more than 50% of the visit. Patient Condition at Discharge: Fair Plan - Discharge Summary Discharge Rx Participant: No New Discharge Prescriptions: New Darbepoetin Duglas [Aranesp] 40 mcg SQ Q7D each Ipratropium-Albuterol Nebulize [Duoneb 0.5 mg-3 mg/3 ml Soln] 3 ml INHALATION RT-QID each Heparin Sodium,Porcine (1 ml) [Heparin Sodium] 5,000 unit SQ Q12H each Continue Aspirin EC [Ecotrin Low Dose] 81 mg PO HS Ferrous Sulfate [Iron] 325 mg PO BID@0500,1700 Sucralfate [Carafate] 1 gm PO BID@0500,1700 carvediloL [Coreg] 12.5 mg PO BID@0500,1700 Calcium Acetate [PhosLo] 1,334 mg PO SUTUTHSA@,,17 NIFEdipine [Procardia XL] 90 mg PO HS Albuterol Inhaler [Ventolin Hfa Inhaler] 2 puff INHALATION RT-Q6H PRN PRN Reason: Shortness Of Breath INSULIN LISPRO (HumaLOG) [humaLOG] See Protocol SQ ACHS Atorvastatin [Lipitor] 20 mg PO HS Citalopram Hydrobromide [CeleXA] 20 mg PO HS Vit B Complx C/Folic Acid/Zinc [Renaplex Tablet] 1 tab PO MOWEFR@2099 Losartan [Cozaar] 50 mg PO DAILY@170 Ipratropium-Albuterol Nebulize [Duoneb 0.5 mg-3 mg/3 ml Soln] 3 ml INHALATION RT-QID PRN each PRN Reason: Shortness Of Breath Or Wheezing Melatonin 6 mg PO HS PRN tab PRN Reason: Insomnia Calcium Acetate [PhosLo] 1,334 mg PO MOWEFR@05,, Amino Acids/Protein Hydrolys [Pro-Stat Awc Liquid] 30 ml PO BID@1200,2100 Torsemide [Demadex] 40 mg PO DAILY@0500 Discharge Medication List Aspirin EC [Ecotrin Low Dose] 81 mg PO HS 09/19/15 [History] Albuterol Inhaler [Ventolin Hfa Inhaler] 2 puff INHALATION RT-Q6H PRN 10/29/22 [History] Ferrous Sulfate [Iron] 325 mg PO BID@0500,1700 10/29/22 [History] INSULIN LISPRO (HumaLOG) [humaLOG] See Protocol SQ ACHS 10/29/22 [History] NIFEdipine [Procardia XL] 90 mg PO HS 10/29/22 [History] Sucralfate [Carafate] 1 gm PO BID@0500,1700 10/29/22 [History] Atorvastatin [Lipitor] 20 mg PO HS 07/06/23 [History] Citalopram Hydrobromide [CeleXA] 20 mg PO HS 07/06/23 [History] Vit B Complx C/Folic Acid/Zinc [Renaplex Tablet] 1 tab PO MOWEFR@209907/06/23 [History] carvediloL [Coreg] 12.5 mg PO BID@0500,1700 07/06/23 [History] Losartan [Cozaar] 50 mg PO DAILY@17007/14/23 [History] Ipratropium-Albuterol Nebulize [Duoneb 0.5 mg-3 mg/3 ml Soln] 3 ml INHALATION RT-QID PRN each 07/22/23 [Rx] Melatonin 6 mg PO HS PRN tab 07/22/23 [Rx] Amino Acids/Protein Hydrolys [Pro-Stat Awc Liquid] 30 ml PO BID@1200,2100 08/25/23 [History] Calcium Acetate [PhosLo] 1,334 mg PO MOWEFR@,,08/25/23 [History] Calcium Acetate [PhosLo] 1,334 mg PO SUTUTHSA@,,08/25/23 [History] Torsemide [Demadex] 40 mg PO DAILY@0500 08/25/23 [History] Darbepoetin Duglas [Aranesp] 40 mcg SQ Q7D each 08/27/23 [Rx] Heparin Sodium,Porcine (1 ml) [Heparin Sodium] 5,000 unit SQ Q12H each 08/27/23 [Rx] Ipratropium-Albuterol Nebulize [Duoneb 0.5 mg-3 mg/3 ml Soln] 3 ml INHALATION RT-QID each 08/27/23 [Rx] Follow up Appointment(s)/Referral(s): Dipesh Beckett MD [Primary Care Provider] - 1-2 days Activity/Diet/Wound Care/Special Instructions: Patient is going to [facility] as tolerated Continue with hemodialysis Wednesday/Wednesday/Wednesday Continue with supplemental oxygen and continue using CPAP at night Discharge Disposition: TRANSFER TO SNF/ECF
[2023-08-27 16:12] LABS: Glucose,Whole Blood 205 mg/dL (70-110)
[2023-08-27 17:15] VITALS: BP 152/67
[2023-08-27 17:48] VITALS: PULSE 71; TEMP 98.1
== END 2023-08-27 17:52 | DRG 291 ==
LOC: EC 02:18 → 3SCARD 03:46
PROVIDERS: ADMIT Hospitalist; ATTEND Hospitalist
PROC: 5A1D70Z Performance of Urinary Filtration, Intermittent, Less than 6 Hours Per Day (ICD-10-PCS; principal; 2023-08-25)
PROC: 5A09457 Assistance with Respiratory Ventilation, 24-96 Consecutive Hours, Continuous Positive Airway Pressure (ICD-10-PCS; 2023-08-25)
DX: I13.2 Hypertensive heart and chronic kidney disease with heart failure and with stage 5 chronic kidney disease, or end stage renal disease (principal); I50.33 Acute on chronic diastolic (congestive) heart failure; J96.01 Acute respiratory failure with hypoxia; N18.6 End stage renal disease; Z66 Do not resuscitate; D63.1 Anemia in chronic kidney disease; E83.42 Hypomagnesemia; E11.22 Type 2 diabetes mellitus with diabetic chronic kidney disease; I27.20 Pulmonary hypertension, unspecified; I45.10 Unspecified right bundle-branch block; Z99.2 Dependence on renal dialysis; Z86.73 Personal history of transient ischemic attack (TIA), and cerebral infarction without residual deficits; G47.33 Obstructive sleep apnea (adult) (pediatric); F41.9 Anxiety disorder, unspecified; F32.A Depression, unspecified; I25.10 Atherosclerotic heart disease of native coronary artery without angina pectoris; E78.5 Hyperlipidemia, unspecified; M19.90 Unspecified osteoarthritis, unspecified site; Z79.4 Long term (current) use of insulin; Z79.82 Long term (current) use of aspirin; Z79.899 Other long term (current) drug therapy; T50.2X5A Adverse effect of carbonic-anhydrase inhibitors, benzothiadiazides and other diuretics, initial encounter; Z88.1 Allergy status to other antibiotic agents; Z88.0 Allergy status to penicillin; Z87.19 Personal history of other diseases of the digestive system; M89.8X9 Other specified disorders of bone, unspecified site; X58.XXXA Exposure to other specified factors, initial encounter
CPT/HCPCS: 36415; 71045; 80048; 80053; 82728; 83036; 83540; 83550; 83735; 83880; 84100; 85025; 85610; 85730; 87636; 90935; 93005; 94640; 94660; 94760; 96365; 96366; 96372; 96375; 99291

== ENCOUNTER 2023-10-17 08:47 | Emergency (ER) | payer MEDICARE, OTHER ==
--- NOTE | 2023-11-13 19:24 | US ---
Patient Ashlie Pop ID [id number] EXAMINATION TYPE: US venous doppler duplex LE RT DATE OF EXAM: 10/17/2023 12:03 PM COMPARISON: THIS EXAM WAS READ DURING PACS DOWNTIME, NO PRIORS AVAILABLE. CLINICAL INDICATION: Rt Leg - Pain and Swelling no h/o DVT. SIDE PERFORMED: Right TECHNIQUE: The lower extremity deep venous system is examined utilizing real time linear array sonog lavinia with graded compression, doppler sonography and color-flow sonography. VESSELS IMAGED: Common Femoral Vein Deep Femoral Vein Greater Saphenous Vein * Femoral Vein Popliteal Vein Small Saphenous Vein * Proximal Calf Veins (* superficial vessels) Right Leg: Negative for DVT IMPRESSION: Grayscale, color doppler, spectral doppler imaging performed of the deep veins of the lo wer extremities. There is normal flow, compressibility, vascular waveforms.
== END 2023-10-17 10:28 | disposition home or self-care (01) ==
LOC: EC 08:47
CPT/HCPCS: 99284

== ENCOUNTER 2024-01-03 12:24 | Emergency (ER) | payer MEDICARE, OTHER ==
[2024-01-03 12:32] VITALS: TEMP 97.7
--- NOTE | 2024-01-03 12:49 | ED ---
ENT HPI - General Chief complaint: ENT Stated complaint: Bleeding from Mouth Time Seen by Provider: 01/03/24 12:25 Source: patient, RN notes reviewed, old records reviewed Mode of arrival: EMS Limitations: no limitations - History of Present Illness Initial comments: This is a 68-year-old female to the ER for tongue bleeding, patient presents from dialysis for tongue bleeding patient went to her second hospital earlier in the day for tongue bleeding and then recurrently presents to us for tongue bleeding. No lightheadedness or dizziness. Patient does not appear to be on any blood thinners MD complaint: other (Bleeding from the tongue, patient bit her tongue) -: hour(s) Location: tongue Severity: mild Severity scale (1-10): 1 Consistency: constant Improves with: none Worsens with: none Associated Symptoms: other (0) - Related Data Home Medications Medication Instructions Recorded Confirmed Aspirin EC [Ecotrin Low Dose] 81 mg PO HS 09/19/15 08/25/23 Albuterol Inhaler [Ventolin Hfa 2 puff INHALATION RT-Q6H PRN 10/29/22 08/25/23 Inhaler] Ferrous Sulfate [Iron] 325 mg PO BID@0500,1700 10/29/22 08/25/23 INSULIN LISPRO (HumaLOG) [humaLOG] See Protocol SQ ACHS 10/29/22 08/25/23 NIFEdipine [Procardia XL] 90 mg PO HS 10/29/22 08/25/23 Sucralfate [Carafate] 1 gm PO BID@0500,1700 10/29/22 08/25/23 Atorvastatin [Lipitor] 20 mg PO HS 07/06/23 08/25/23 Citalopram Hydrobromide [CeleXA] 20 mg PO HS 07/06/23 08/25/23 Vit B Complx C/Folic Acid/Zinc 1 tab PO MOWEFR@209907/06/23 08/25/23 [Renaplex Tablet] carvediloL [Coreg] 12.5 mg PO BID@0500,1700 07/06/23 08/25/23 Losartan [Cozaar] 50 mg PO DAILY@1700 07/14/23 08/25/23 Amino Acids/Protein Hydrolys 30 ml PO BID@1200,2100 08/25/23 08/25/23 [Pro-Stat Awc Liquid] Calcium Acetate [PhosLo] 1,334 mg PO MOWEFR@05,,17 08/25/23 08/25/23 Calcium Acetate [PhosLo] 1,334 mg PO SUTUTHSA@,,08/25/23 08/25/23 Torsemide [Demadex] 40 mg PO DAILY@0500 08/25/23 08/25/23 Previous Rx's Medication Instructions Recorded Ipratropium-Albuterol Nebulize 3 ml INHALATION RT-QID PRN each 07/22/23 [Duoneb 0.5 mg-3 mg/3 ml Soln] Melatonin 6 mg PO HS PRN tab 07/22/23 Darbepoetin Duglas [Aranesp] 40 mcg SQ Q7D each 08/27/23 Heparin Sodium,Porcine (1 ml) 5,000 unit SQ Q12H each 08/27/23 [Heparin Sodium] Ipratropium-Albuterol Nebulize 3 ml INHALATION RT-QID each 08/27/23 [Duoneb 0.5 mg-3 mg/3 ml Soln] Allergies Allergy/AdvReac Type Severity Reaction Status Date / Time captopril Allergy Cough Verified 08/25/23 06:44 cephalexin monohydrate Allergy Rash/Hives Verified 08/25/23 06:44 [From Keflex] Penicillins Allergy Rash/Hives Verified 08/25/23 06:44 Review of Systems ROS Statement: Those systems with pertinent positive or pertinent negative responses have been documented in the HPI. ROS Other: All systems not noted in ROS Statement are negative. Past Medical History Past Medical History: Coronary Artery Disease (CAD), CVA/TIA, Diabetes Mellitus, Dialysis, Eye Disorder, Hyperlipidemia, Hypertension, Osteoarthritis (OA), Renal Disease, Sleep Apnea/CPAP/BIPAP Additional Past Medical History / Comment(s): varicose veins (removed), stroke X3-left side weaker uses a walker and w/c-states she usually needs assistance with ambulation, TIA's, AROLDO-no CPAP, hiatal hernia, ESRD - hemodialysis , , SA. with fistula left forearm, prior peritoneal dialysis catheter removed, urinates frequent small amounts, hx bleeding ulcer. History of Any Multi-Drug Resistant Organisms: None Reported Past Surgical History: Breast Surgery, Heart Catheterization, Orthopedic Surgery Additional Past Surgical History / Comment(s): Bilateral Carotid Endarterectomy, lumpectomy Rt breast, CTR bilateral wrists, pilonidal cyst removal, varicose vein removal, bilateral cataracts removed, Fistula left wrist surgery 2019; Fistula revision 05/30/20., peritoneal dialysis catheter and removal Past Anesthesia/Blood Transfusion Reactions: Previous Problems w/ Anesthesia, Motion Sickness Additional Past Anesthesia/Blood Transfusion Reaction / Comment(s): Had trouble waking up after surgery. no problems with prior blood transfusion Past Psychological History: Anxiety, Depression Smoking Status: Former smoker Past Alcohol Use History: None Reported Past Drug Use History: None Reported - Past Family History Mother Family Medical History: Cancer Additional Family Medical History / Comment(s): breast cancer w/ mets Father Family Medical History: Cancer Additional Family Medical History / Comment(s): esophageal cancer Brother(s) Family Medical History: Cancer Additional Family Medical History / Comment(s): colon cancer, esophageal cancer General Exam Limitations: no limitations General appearance: alert, in no apparent distress Head exam: Present: atraumatic, normocephalic, normal inspection Eye exam: Present: normal appearance, PERRL, EOMI. Absent: scleral icterus, conjunctival injection, periorbital swelling ENT exam: Present: normal exam, mucous membranes moist Neck exam: Present: normal inspection. Absent: tenderness, meningismus, lymphadenopathy Respiratory exam: Present: normal lung sounds bilaterally. Absent: respiratory distress, wheezes, rales, rhonchi, stridor Cardiovascular Exam: Present: regular rate, normal rhythm, normal heart sounds. Absent: systolic murmur, diastolic murmur, rubs, gallop, clicks GI/Abdominal exam: Present: soft, normal bowel sounds. Absent: distended, tenderness, guarding, rebound, rigid Extremities exam: Present: normal inspection, full ROM, normal capillary refill. Absent: tenderness, pedal edema, joint swelling, calf tenderness Back exam: Present: normal inspection Neurological exam: Present: alert, oriented X3, CN II-XII intact Psychiatric exam: Present: normal affect, normal mood Skin exam: Present: warm, dry, intact, normal color. Absent: rash Course Vital Signs 01/03/24 12:29 Temperature 97.7 F Pulse Rate 62 Respiratory 24 Rate Blood Pressure 175/87 O2 Sat by Pulse 95 Oximetry - Reevaluation(s) Reevaluation #1: 01/03/24 13:34 Medical records reviewed Reevaluation #2: 01/03/24 14:01 Patient symptoms improving here in the ER Patient given ice water washes for about 2 hours now Patient is able to complete and continue to these washes outpatient Reevaluation #3: 01/03/24 14:02 Patient informed of results questions answered Reevaluation #4: Was pt. sent in by a medical professional or institution (, [facility], urgent care, hospital, or [facility]...) When possible be specific @ -no Did you speak to anyone other than the patient for history (EMS, parent, family, police, friend...)? What history was obtained from this source @ -no Did you review nursing and triage notes (agree or disagree)? Why? @ -agree Are old charts reviewed (outside hosp., previous admission, EMS record, old EKG, old radiological studies, urgent care reports/EKG's, [facility] records)? Report findings @ -yes Differential Diagnosis (chest pain, altered mental status, abdominal pain women, abdominal pain men, vaginal bleeding, weakness, fever, dyspnea, syncope, headache, dizziness, GI bleed, back pain, seizure, CVA, palpatations, mental hea lth, musculoskeletal)? @ -prior EKG interpreted by me (3pts min.). @ -yes X-rays interpreted by me (1pt min.). @ -yes negative for acute disease CT interpreted by me (1pt min.). @ -no U/S interpreted by me (1pt. min.). @ -no What testing was considered but not performed or refused? (CT, X-rays, U/S, labs)? Why? @ -none What meds were considered but not given or refused? Why? @ -none Did you discuss the management of the patient with other professionals (professionals i.e. , [facility], [facility], lab, RT, psych nurse, oncology social worker, optical fabrication technician, teacher, flight deck officer, case packer and sealer)? Give summary @ -no Was smoking cessation discussed for >3mins.? @ -no Was critical care preformed (if so, how long)? @ -no Were there social determinants of health that impacted care today? How? (Homelessness, low income, unemployed, alcoholism, drug addiction, transportation, low edu. Level, literacy, decrease access to med. care, group home, rehab)? @ -none Was there de-escalation of care discussed even if they declined (Discuss DNR or withdrawal of care, Hospice)? DNR status @ -no What co-morbidities impacted this encounter? (DM, HTN, Smoking, COPD, CAD, Cancer, CVA, ARF, Chemo, Hep., AIDS, mental health diagnosis, sleep apnea, morbid obesity)? @ -none Was patient admitted / discharged? Hospital course, mention meds given and route, prescriptions, significant lab abnormalities, going to OR and other per tinent info. @ - Undiagnosed new problem with uncertain prognosis? @ -no Drug Therapy requiring intensive monitoring for toxicity (Heparin, Nitro, Insulin, Cardizem)? @ -no Were any procedures done? @ -no Diagnosis/symptom? @ - Acute, or Chronic, or Acute on Chronic? @ -Acute Uncomplicated (without systemic symptoms) or Complicated (systemic symptoms)? @ -Complicated Side effects of treatment? @ -no Exacerbation, Progression, or Severe Exacerbation? @ -exacerbation Poses a threat to life or bodily function? How? (Chest pain, [place], [place], pneumonia, PE, COPD, DKA, ARF, appy, cholecystitis, CVA, Diverticulitis, Homicidal, Suicidal, threat to staff... and all critical care pts) @ -yes Medical Decision Making - Medical Decision Making 68 female to the ER for evaluation of significant tongue laceration from biting her tongue, patient will continue ice water mouth rinses and wash as an outpatient, will be discharged home, no blood thinners, no significant excessive bleeding currently Disposition Clinical Impression: Tongue laceration, Open wound of tongue due to bite Dis[facility] Instructions (If sedation given, give patient instructions): Laceration (ED), Dental Laceration (ED) Is patient prescribed a controlled substance at d/c from ED?: No Referrals: Dipesh Beckett MD [Primary Care Provider] - 1-2 days Time of Disposition: 14:00
[2024-01-03 16:24] VITALS: BP 145/85; PULSE 65; RESP 16
== END 2024-01-03 16:24 ==
LOC: EC 12:24
CPT/HCPCS: 99284

== ENCOUNTER 2024-01-07 12:41 | Emergency (ER) | payer MEDICARE, OTHER ==
[2024-01-07 13:14] VITALS: RESP 16
--- NOTE | 2024-01-07 13:38 | ED ---
General Adult HPI - General Chief complaint: Recheck/Abnormal Lab/Rx Stated complaint: Low Hemoglobin Time Seen by Provider: 01/07/24 12:52 Source: patient, EMS, RN notes reviewed Mode of arrival: EMS Limitations: no limitations - History of Present Illness Initial comments: Patient is a 68-year-old female presenting to the emergency department with gavin quan with low hemoglobin. Patient is a poor historian. Patient was sent from dialysis. Patient admits to having some fatigue. Patient states she does not normally walk much at all. Patient states she did bite her tongue bed recently however is unclear when and how much blood came from it. Patient denies any bloody stool. Patient denies any melena - Related Data Home Medications Medication Instructions Recorded Confirmed Aspirin EC [Ecotrin Low Dose] 81 mg PO HS 09/19/15 08/25/23 Albuterol Inhaler [Ventolin Hfa 2 puff INHALATION RT-Q6H PRN 10/29/22 08/25/23 Inhaler] Ferrous Sulfate [Iron] 325 mg PO BID@0500,1700 10/29/22 08/25/23 INSULIN LISPRO (HumaLOG) [humaLOG] See Protocol SQ ACHS 10/29/22 08/25/23 NIFEdipine [Procardia XL] 90 mg PO HS 10/29/22 08/25/23 Sucralfate [Carafate] 1 gm PO BID@0500,1700 10/29/22 08/25/23 Atorvastatin [Lipitor] 20 mg PO HS 07/06/23 08/25/23 Citalopram Hydrobromide [CeleXA] 20 mg PO HS 07/06/23 08/25/23 Vit B Complx C/Folic Acid/Zinc 1 tab PO MOWEFR@209907/06/23 08/25/23 [Renaplex Tablet] carvediloL [Coreg] 12.5 mg PO BID@0500,1700 07/06/23 08/25/23 Losartan [Cozaar] 50 mg PO DAILY@1700 07/14/23 08/25/23 Amino Acids/Protein Hydrolys 30 ml PO BID@1200,2100 08/25/23 08/25/23 [Pro-Stat Awc Liquid] Calcium Acetate [PhosLo] 1,334 mg PO MOWEFR@05,13,17 08/25/23 08/25/23 Calcium Acetate [PhosLo] 1,334 mg PO SUTUTHSA@09,13,17 08/25/23 08/25/23 Torsemide [Demadex] 40 mg PO DAILY@0500 08/25/23 08/25/23 Previous Rx's Medication Instructions Recorded Ipratropium-Albuterol Nebulize 3 ml INHALATION RT-QID PRN each 07/22/23 [Duoneb 0.5 mg-3 mg/3 ml Soln] Melatonin 6 mg PO HS PRN tab 07/22/23 Darbepoetin Duglas [Aranesp] 40 mcg SQ Q7D each 08/27/23 Heparin Sodium,Porcine (1 ml) 5,000 unit SQ Q12H each 08/27/23 [Heparin Sodium] Ipratropium-Albuterol Nebulize 3 ml INHALATION RT-QID each 08/27/23 [Duoneb 0.5 mg-3 mg/3 ml Soln] Allergies Allergy/AdvReac Type Severity Reaction Status Date / Time captopril Allergy Cough Verified 01/07/24 12:56 cephalexin monohydrate Allergy Rash/Hives Verified 01/07/24 12:56 [From Keflex] Penicillins Allergy Rash/Hives Verified 01/07/24 12:56 Review of Systems ROS Statement: Those systems with pertinent positive or pertinent negative responses have been documented in the HPI. ROS Other: All systems not noted in ROS Statement are negative. Constitutional: Denies: fever Eyes: Denies: eye pain ENT: Reports: as per HPI. Denies: ear pain Respiratory: Denies: cough Cardiovascular: Denies: chest pain Endocrine: Reports: fatigue Gastrointestinal: Denies: abdominal pain, hematemesis, melena, hematochezia Past Medical History Past Medical History: Coronary Artery Disease (CAD), CVA/TIA, Diabetes Mellitus, Dialysis, Eye Disorder, Hyperlipidemia, Hypertension, Osteoarthritis (OA), Renal Disease, Sleep Apnea/CPAP/BIPAP Additional Past Medical History / Comment(s): varicose veins (removed), stroke X3-left side weaker uses a walker and w/c-states she usually needs assistance with ambulation, TIA's, AROLDO-no CPAP, hiatal hernia, ESRD - hemodialysis , , . with fistula left forearm, prior peritoneal dialysis catheter removed, urinates frequent small amounts, hx bleeding ulcer. History of Any Multi-Drug Resistant Organisms: None Reported Past Surgical History: Breast Surgery, Heart Catheterization, Orthopedic Surgery Additional Past Surgical History / Comment(s): Bilateral Carotid Endarterectomy, lumpectomy Rt breast, CTR bilateral wrists, pilonidal cyst removal, varicose vein removal, bilateral cataracts removed, Fistula left wrist surgery 2019; Fistula revision 05/30/20., peritoneal dialysis catheter and removal Past Anesthesia/Blood Transfusion Reactions: Previous Problems w/ Anesthesia, Motion Sickness Additional Past Anesthesia/Blood Transfusion Reaction / Comment(s): Had trouble waking up after surgery. no problems with prior blood transfusion Past Psychological History: Anxiety, Depression Smoking Status: Former smoker Past Alcohol Use History: None Reported Past Drug Use History: None Reported - Past Family History Mother Family Medical History: Cancer Additional Family Medical History / Comment(s): breast cancer w/ mets Father Family Medical History: Cancer Additional Family Medical History / Comment(s): esophageal cancer Brother(s) Family Medical History: Cancer Additional Family Medical History / Comment(s): colon cancer, esophageal cancer General Exam Limitations: no limitations General appearance: alert, in no apparent distress Head exam: Present: normocephalic Eye exam: Present: normal appearance ENT exam: Present: normal oropharynx, other (No visualized tongue trauma) Neck exam: Present: normal inspection Respiratory exam: Present: normal lung sounds bilaterally Cardiovascular Exam: Present: irregular rhythm, systolic murmur GI/Abdominal exam: Present: soft. Absent: tenderness Extremities exam: Present: normal inspection Neurological exam: Present: alert Psychiatric exam: Present: normal affect, normal mood Skin exam: Present: normal color Course Vital Signs 01/07/24 01/07/24 01/07/24 12:52 14:10 15:00 Temperature 97.5 F L Pulse Rate 68 77 85 Respiratory 16 16 16 Rate Blood Pressure 154/65 182/102 196/95 O2 Sat by Pulse 99 98 97 Oximetry EKG Findings - EKG Results: EKG: interpreted by NAZIA ([place] normal QRS, normal ST/T EKG shows: atrial fibrillation Medical Decision Making - Medical Decision Making Was pt. sent in by a medical professional or institution (, PA, ACOUSTICS TEACHER, urgent care, hospital, or [place] health care facility...) When possible be specific @ -Patient was sent from dialysis Did you speak to anyone other than the patient for history (EMS, parent, family, police, friend...)? What history was obtained from this source @ -No Did you review nursing and triage notes (agree or disagree)? Why? @ -I reviewed and agree with nursing and triage notes Were old charts reviewed (outside hosp., previous admission, EMS record, old EKG, old radiological studies, urgent care reports/EKG's, [place] health care facility records)? Report findings @ -Chart with concern for hemoglobin 6.7 a couple of days ago Differential Diagnosis (chest pain, altered mental status, abdominal pain women, abdominal pain men, vaginal bleeding, weakness, fever, dyspnea, syncope, headache, dizziness, GI bleed, back pain, seizure, CVA, palpatations, mental health, musculoskeletal)? @ -Not applicable EKG interpreted by me (3pts min.). @ -As above X-rays interpreted by me (1pt min.). @ -None done CT interpreted by me (1pt min.). @ -None done U/S interpreted by me (1pt. min.). @ -None done What testing was considered but not performed or refused? (CT, X-rays, U/S, labs)? Why? @ -None What meds were considered but not given or refused? Why? @ -None Did you discuss the management of the patient with other professionals (professionals i.e. , PA, ACOUSTICS TEACHER, lab, RT, psych nurse, psychologist social, editorial writer, teacher, community service patrol officer, family caseworker)? Give summary @ -No Was smoking cessation discussed for >3mins.? @ -No Was critical care preformed (if so, how long)? @ -No Were there social determinants of health that impacted care today? How? (Homelessness, low income, unemployed, alcoholism, drug addiction, transpo rtation, low edu. Level, literacy, decrease access to med. care, half-way, rehab)? @ -No Was there de-escalation of care discussed even if they declined (Discuss DNR or withdrawal of care, Hospice)? DNR status @ -No What co-morbidities impacted this encounter? (DM, HTN, Smoking, COPD, CAD, Cancer, CVA, ARF, Chemo, Hep., AIDS, mental health diagnosis, sleep apnea, morbid obesity)? @ -History of anemia Was patient admitted / discharged? Hospital course, mention meds given and route, prescriptions, significant lab abnormalities, going to OR and other pertinent info. @ -Patient presents with anemia. No significant findings on evaluation or exam. Hemoglobin increased from recent hemoglobin draw. Patient has history of chronic anemia. Patient is happy to be discharged and will be followed up with primary Undiagnosed new problem with uncertain prognosis? @ -No Drug Therapy requiring intensive monitoring for toxicity (Heparin, Nitro, Insulin, Cardizem)? @ -No Were any procedures done? @ -No Diagnosis/symptom? @ -Anemia Acute, or Chronic, or Acute on Chronic? @ -Acute on chronic Uncomplicated (without systemic symptoms) or Complicated (systemic symptoms)? @ -Default Side effects of treatment? @ -No Exacerbation, Progression, or Severe Exacerbation? @ -No Poses a threat to life or bodily function? How? (Chest pain, [place], [place], pneumonia, PE, COPD, DKA, ARF, appy, cholecystitis, CVA, Diverticulitis, Homicidal, Suicidal, threat to staff... and all critical care pts) @ -Threat for multi organ dysfunction with anemia - Lab Data Result diagrams: 01/07/24 13:55 01/07/24 13:55 Lab Results 01/07/24 01/07/24 01/07/24 Range/Units 13:55 13:55 13:55 WBC 9.8 (3.8-10.6) k/uL RBC 2.96 L (3.80-5.40) m/uL Hgb 7.6 L (11.4-16.0) gm/dL Hct 24.6 L (34.0-46.0) % MCV 83.3 (80.0-100.0) fL MCH 25.8 (25.0-35.0) pg MCHC 30.9 L (31.0-37.0) g/dL RDW 18.7 H (11.5-15.5) % Plt Count 254 (150-450) k/uL MPV 7.2 Neutrophils % 84 % Lymphocytes % 7 % Monocytes % 5 % Eosinophils % 2 % Basophils % 0 % Neutrophils # 8.2 H (1.3-7.7) k/uL Lymphocytes # 0.7 L (1.0-4.8) k/uL Monocytes # 0.5 (0-1.0) k/uL Eosinophils # 0.2 (0-0.7) k/uL Basophils # 0.0 (0-0.2) k/uL Hypochromasia Moderate Anisocytosis Slight Microcytosis Slight PT 9.7 L (10.0-12.5) sec INR 0.9 (<1.2) APTT 22.9 (22.0-30.0) sec Sodium 135 L (137-145) mmol/L Potassium 3.7 (3.5-5.1) mmol/L Chloride 97 L (98-107) mmol/L Carbon Dioxide 34 H (22-30) mmol/L Anion Gap 4 mmol/L BUN 36 H (7-17) mg/dL Creatinine 2.51 H (0.52-1.04) mg/dL Est GFR (CKD-EPI)AfAm 22 (>60 ml/min/1.73 sqM) Est GFR (CKD-EPI)NonAf 19 (>60 ml/min/1.73 sqM) Glucose 115 H (74-99) mg/dL Calcium 8.8 (8.4-10.2) mg/dL Total Bilirubin 0.5 (0.2-1.3) mg/dL AST 26 (14-36) U/L ALT 22 (4-34) U/L Alkaline Phosphatase 71 (38-126) U/L Total Protein 6.7 (6.3-8.2) g/dL Albumin 4.0 (3.5-5.0) g/dL Blood Type Blood Type Recheck Bld Type Recheck Status Antibody Screen Spec Expiration Date 01/07/24 Range/Units 13:55 WBC (3.8-10.6) k/uL RBC (3.80-5.40) m/uL Hgb (11.4-16.0) gm/dL Hct (34.0-46.0) % MCV (80.0-100.0) fL MCH (25.0-35.0) pg MCHC (31.0-37.0) g/dL RDW (11.5-15.5) % Plt Count (150-450) k/uL MPV Neutrophils % % Lymphocytes % % Monocytes % % Eosinophils % % Basophils % % Neutrophils # (1.3-7.7) k/uL Lymphocytes # (1.0-4.8) k/uL Monocytes # (0-1.0) k/uL Eosinophils # (0-0.7) k/uL Basophils # (0-0.2) k/uL Hypochromasia Anisocytosis Microcytosis PT (10.0-12.5) sec INR (<1.2) APTT (22.0-30.0) sec Sodium (137-145) mmol/L Potassium (3.5-5.1) mmol/L Chloride (98-107) mmol/L Carbon Dioxide (22-30) mmol/L Anion Gap mmol/L BUN (7-17) mg/dL Creatinine (0.52-1.04) mg/dL Est GFR (CKD-EPI)AfAm (>60 ml/min/1.73 sqM) Est GFR (CKD-EPI)NonAf (>60 ml/min/1.73 sqM) Glucose (74-99) mg/dL Calcium (8.4-10.2) mg/dL Total Bilirubin (0.2-1.3) mg/dL AST (14-36) U/L ALT (4-34) U/L Alkaline Phosphatase (38-126) U/L Total Protein (6.3-8.2) g/dL Albumin (3.5-5.0) g/dL Blood Type A Positive Blood Type Recheck A Pos Bld Type Recheck Status No Antibody Screen NEGATIVE Spec Expiration Date 01/10/20242354 Disposition Clinical Impression: Anemia Disposition: HOME SELF-CARE Condition: Stable Instructions (If sedation given, give patient instructions): Anemia (ED) Additional Instructions: Please do follow-up with your primary care physician in the next 1 or 2 days for recheck. Please also follow-up with your kidney doctor in the next day or 2 for recheck. Continue dialysis. Return for weakness, shortness of breath, worsening or symptoms, bleeding or any other concerns. Is patient prescribed a controlled substance at d/c from ED?: No Referrals: Dipesh Beckett MD [Primary Care Provider] - 1-2 days Kenya Bocanegra MD [STAFF PHYSICIAN] - 1-2 days Time of Disposition: 16:19
[2024-01-07] MEDS: PANTOPRAZOLE 40 MG/10 ML VIAL IVP STA (14:04)
[2024-01-07 14:37] LABS: Anisocytosis Slight; Basophils % (A) 0 %; Eosinophils # (A) 0.2 k/uL (0-0.7); Eosinophils % (A) 2 %; HCT 24.6 % (34.0-46.0); HGB 7.6 gm/dL (11.4-16.0); Hypochromasia Moderate; Lymphocytes # (A) 0.7 k/uL (1.0-4.8); Lymphocytes % (A) 7 %; MCH 25.8 pg (25.0-35.0); MCHC 30.9 g/dL (31.0-37.0); MCV 83.3 fL (80.0-100.0); Mean Platelet Volume 7.2; Microcytosis Slight; Monocytes # (A) 0.5 k/uL (0-1.0); Monocytes % (A) 5 %; Neutrophils # (A) 8.2 k/uL (1.3-7.7); Neutrophils % (A) 84 %; Platelet Count 254 k/uL (150-450); RBC 2.96 m/uL (3.80-5.40); RDW 18.7 % (11.5-15.5); WBC 9.8 k/uL (3.8-10.6)
[2024-01-07 14:45] LABS: INR 0.9 (<1.2); Partial Thromboplastin Time 22.9 sec (22.0-30.0); Prothrombin Time 9.7 sec (10.0-12.5)
[2024-01-07 14:48] LABS: ALT 22 U/L (4-34); AST 26 U/L (14-36); African American GFR (CKD) 22 (>60 ml/min/1.73 sqM); Alkaline Phosphatase 71 U/L (38-126); Anion Gap 4 mmol/L; Blood Urea Nitrogen 36 mg/dL (7-17); Calcium 8.8 mg/dL (8.4-10.2); Carbon Dioxide 34 mmol/L (22-30); Chloride 97 mmol/L (98-107); Glucose 115 mg/dL (74-99); Non-African American GFR(CKD) 19 (>60 ml/min/1.73 sqM); Potassium 3.7 mmol/L (3.5-5.1); Sodium 135 mmol/L (137-145); Total Bilirubin 0.5 mg/dL (0.2-1.3); Total Protein 6.7 g/dL (6.3-8.2)
[2024-01-07 17:27] VITALS: BP 191/96; PULSE 77; TEMP 97.8
== END 2024-01-07 17:15 | disposition home or self-care (01) ==
LOC: EC 12:41
DX: D64.9 Anemia, unspecified (principal); I48.91 Unspecified atrial fibrillation; Z88.0 Allergy status to penicillin; Z88.1 Allergy status to other antibiotic agents; Z88.8 Allergy status to other drugs, medicaments and biological substances; Z87.891 Personal history of nicotine dependence; Z86.73 Personal history of transient ischemic attack (TIA), and cerebral infarction without residual deficits; Z79.899 Other long term (current) drug therapy
CPT/HCPCS: 36415; 93005; 86900; 86901; 80053; 85025; 85610; 85730; 86850; 99285; 96374; J2470

== ENCOUNTER 2024-06-27 05:32 | Day surgery (SDC) | payer MEDICARE, OTHER ==
[2024-06-27 06:25] VITALS: RESP 16; TEMP 97.3
[2024-06-27 06:33] LABS: Glucose,Whole Blood 129 mg/dL (70-110)
[2024-06-27] MEDS: IV FLUID CONTINUATION 1,000 ML IV ONE (07:00)
[2024-06-27] MEDS: SODIUM CHLORIDE 0.9% 1,000 ML IV SCH (07:11)
[2024-06-27 07:17] LABS: Basophils # (A) 0.06 10*3/uL (0.00-0.10); Basophils % (A) 0.8 %; Eosinophils # (A) 0.16 10*3/uL (0.04-0.35); Eosinophils % (A) 2.2 %; HCT 32.3 % (37.2-46.3); HGB 10.4 g/dL (12.0-15.0); Lymphocytes # (A) 0.99 10*3/uL (0.90-5.00); Lymphocytes % (A) 13.8 %; MCH 29.9 pg (27.0-32.0); MCHC 32.2 g/dL (32.0-37.0); MCV 92.8 fL (80.0-97.0); Mean Platelet Volume 9.6 fL (9.5-12.2); Monocytes # (A) 0.75 10*3/uL (0.20-1.00); Monocytes % (A) 10.5 %; Neutrophils # (A) 5.11 10*3/uL (1.80-7.70); Neutrophils % (A) 71.4 %; Platelet Count 189 10*3/uL (140-440); RBC 3.48 10*6/uL (4.10-5.20); RDW 16.2 % (11.5-14.5); WBC 7.16 10*3/uL (4.50-10.00)
[2024-06-27] MEDS: fentaNYL (PF) 50 MCG/1 ML VIAL IVP ONE (07:45)
[2024-06-27] MEDS: LIDOCAINE 1% INJ 10MG/ML (20 ML MDV) SQ ONE (07:45)
[2024-06-27] MEDS: MIDAZOLAM 2 MG/2 ML VIAL IVP ONE (07:45)
[2024-06-27 07:59] LABS: African American GFR (CKD) 10 (>60 ml/min/1.73 sqM); Anion Gap 13 mmol/L; Blood Urea Nitrogen 49 mg/dL (7-17); Calcium 9.8 mg/dL (8.4-10.2); Carbon Dioxide 34 mmol/L (22-30); Chloride 90 mmol/L (98-107); Glucose 134 mg/dL (74-99); Non-African American GFR(CKD) 9 (>60 ml/min/1.73 sqM); Potassium 4.4 mmol/L (3.5-5.1); Sodium 137 mmol/L (137-145)
[2024-06-27] MEDS: IOPAMIDOL-370 100ML BTL INJ ONE (08:12)
--- NOTE | 2024-06-27 08:44 | IR ---
EXAMINATION TYPE: IR fistula/abscess/sinus tract Intraoperative/procedural fluoroscopic services were provided. CLINICAL INDICATION:Female, 69 years old with history of left fistulagram, 5.2min fluoro, [id number]; , [facility] FINDINGS: Multiple fluoroscopic images obtained for left fistulogram. Total fluoroscopy time is 5.2 min. DAP: 0.945 Gycm2 Please see the operative/procedural note for further details. [facility], , 06/27/2024 8:42 AM
--- NOTE | 2024-06-27 08:45 | P.OP ---
Date of Procedure: 06/27/24 Description of Procedure: Preoperative diagnosis: Malfunctioning dialysis access Postoperative diagnosis: Same Procedure: Ultrasound-guided left upper extremity cephalic vein access Fistulogram Percutaneous transluminal balloon venoplasty 5 x 40, 7 x 20 cephalic vein Moderate conscious sedation with personal monitoring certified RN administration x 26 minutes with personal hemodynamic monitoring Surgeon: Jen Hilliard D.O. EBL: 5 cc IV fluids: See records Urine output: Not measured Drains: None Complications: None immediately apparent Condition: Stable Operative indication and findings: Patient is a 69-year-old female with a left upper extremity radiocephalic fistula on recent imaging there was evidence of some stenosis and diminished flow towards the proximal portion therefore she is here today for fistulogram. Risk and benefits are discussed. She seems understand and is willing to proceed Procedure in detail: Patient was taken to the op suite placed in supine position. Left upper extremity was prepped and draped in usual sterile fashion. A preprocedural timeout was performed, all parties were in agreement. Using ultrasound at about the antecubital fossa, the cephalic vein was identified. The skin was overlying and anesthetized. The vein was patent and compressible. A micro access sheath was used with Seldinger technique. A fistulogram was taken. The decision was then made to upsize to a 6 Sinhala sheath and a Glidewire and glide catheter were placed and an angiogram from the radial artery was obtained showing stenosis in the longer segment of the proximal inflow approximately 5 cm. There was also an area of stenosis and caliber change at the mid cephalic vein beyond the area of accessing. Due to this the decision was made for balloon angioplasty. A 5 x 40 balloon was utilized at the inflow cephalic segment and angioplasty was performed. This did show improvement with improvement of the thrill and washing through the contrast. Repeat imaging was performed again delineating the area of stenosis in the outflow therefore a 7 x 20 balloon was utilized in this area. Another repeat image was performed showing again a significant caliber change in the more proximal section therefore the 7 x 20 was utilized at this area as well to help to dilate the vessel. This was successful. There was no evidence of perforation or flow disturbance. The thrill was fantastic with a good washing of contrast. No further imaging was necessary. The catheters and wires were removed. The sheath was removed and a [id number] suture was placed. The patient tolerated the procedure well. Plan - Discharge Summary Discharge Rx Participant: No New Discharge Prescriptions: No Action Aspirin EC [Ecotrin Low Dose] 81 mg PO DAILY carvediloL [Coreg] 12.5 mg PO BID Bumetanide [Bumex] 5 mg PO DAILY Acetaminophen Tab [Tylenol] 650 mg PO Q6H PRN PRN Reason: Pain Ipratropium-Albuterol Nebulize [Duoneb 0.5 mg-3 mg/3 ml Soln] 1 dose INHALATION QID Budesonide 2 ml INHALATION BID Pantoprazole Sodium [Protonix] 40 mg PO DAILY polyethylene glycoL 3350 [Miralax] 17 gm PO DAILY Albuterol Inhaler [Ventolin Hfa Inhaler] 2 puff INHALATION RT-Q6H PRN PRN Reason: Shortness Of Breath Atorvastatin [Lipitor] 20 mg PO HS Citalopram Hydrobromide [CeleXA] 20 mg PO DAILY Losartan [Cozaar] 50 mg PO DAILY Folic Acid/Vit B Complex and C [Yina-Hanna Tablet] 1 tab PO DAILY Discharge Medication List Aspirin EC [Ecotrin Low Dose] 81 mg PO DAILY 09/19/15 [History] Albuterol Inhaler [Ventolin Hfa Inhaler] 2 puff INHALATION RT-Q6H PRN 10/29/22 [History] Atorvastatin [Lipitor] 20 mg PO HS 07/06/23 [History] Citalopram Hydrobromide [CeleXA] 20 mg PO DAILY 07/06/23 [History] carvediloL [Coreg] 12.5 mg PO BID 07/06/23 [History] Losartan [Cozaar] 50 mg PO DAILY 07/14/23 [History] Bumetanide [Bumex] 5 mg PO DAILY 01/07/24 [History] Acetaminophen Tab [Tylenol] 650 mg PO Q6H PRN 06/14/24 [History] Budesonide 2 ml INHALATION BID 06/14/24 [History] Folic Acid/Vit B Complex and C [Yina-Hanna Tablet] 1 tab PO DAILY 06/14/24 [History] Ipratropium-Albuterol Nebulize [Duoneb 0.5 mg-3 mg/3 ml Soln] 1 dose INHALATION QID 06/14/24 [History] Pantoprazole Sodium [Protonix] 40 mg PO DAILY 06/14/24 [History] polyethylene glycoL 3350 [Miralax] 17 gm PO DAILY 06/22/24 [History] Follow up Appointment(s)/Referral(s): Jen Kamara DO [STAFF PHYSICIAN] - 6 Weeks Activity/Diet/Wound Care/Special Instructions: Resume bathing as previous. The suture may be removed at next dialysis session. Resume diet as tolerated. Resume medications as tolerated. Discharge Disposition: TRANSFER TO SNF/ECF
[2024-06-27] MEDS: LOSARTAN 50 MG TAB PO SCH (09:24)
[2024-06-27] MEDS: hydrALAZINE HCL 20 MG/ML 1 ML VIAL IVP STA (10:25)
[2024-06-27 11:21] VITALS: BP 158/66; PULSE 72
== END 2024-06-27 11:11 ==
LOC: CATHCVL 05:32
PROVIDERS: ATTEND Surgery
DX: T82.41XA Breakdown (mechanical) of vascular dialysis catheter, initial encounter (principal); E11.22 Type 2 diabetes mellitus with diabetic chronic kidney disease; I12.0 Hypertensive chronic kidney disease with stage 5 chronic kidney disease or end stage renal disease; N18.6 End stage renal disease; Z79.82 Long term (current) use of aspirin; Z88.0 Allergy status to penicillin; Z88.1 Allergy status to other antibiotic agents; Z79.899 Other long term (current) drug therapy; Y83.8 Other surgical procedures as the cause of abnormal reaction of the patient, or of later complication, without mention of misadventure at the time of the procedure
CPT/HCPCS: 76937; 36902; 80048; 85025; C1894; C1725; C1769 ×2; J2250; J0360; J2003; Q9967; J3010

== ENCOUNTER 2024-06-29 08:36 | Day surgery (SDC) | payer MEDICARE, OTHER ==
[~2024-06-29 08:36] MED LIST changes: -ACETAMINOPHEN TAB 500 MG TAB PO PRN; -HEPARIN SODIUM,PORCINE/PF 5,000 UNIT/0.5 ML SYRINGE SQ PRN; +LACTATED RINGERS 1,000 ML IV SCH; +LIDOCAINE 1% (10MG/ML) FOR IV START INTRADERMA PRN
[2024-06-29] MEDS: SODIUM CHLORIDE 0.9% 500 ML 500 ML IV ONE (09:16)
[2024-06-29] MEDS: IV FLUID CONTINUATION 500 ML IV ONE (09:16)
[2024-06-29 09:27] VITALS: TEMP 98.1
[2024-06-29 09:46] LABS: Glucose,Whole Blood 118 mg/dL (70-110)
[2024-06-29] MEDS ORDERED: PROPOFOL 10 MG/ML 20 ML VIAL IV ONE (10:23)
[2024-06-29] MEDS ORDERED: LIDOCAINE 1% INJ 10MG/ML (20 ML MDV) ONE (10:23)
--- NOTE | 2024-06-29 10:30 | P.GSHP ---
History of Present Illness H&P Date: 06/29/24 Chief Complaint: History of colon polyps, gerd Is a 69-year-old female with previous history of colon polyps. Patient also has GERD symptoms. Patient scheduled for EGD colonoscopy Past Medical History Past Medical History: Coronary Artery Disease (CAD), CVA/TIA, Diabetes Mellitus, Dialysis, Eye Disorder, Hyperlipidemia, Hypertension, Osteoarthritis (OA), Renal Disease, Sleep Apnea/CPAP/BIPAP Additional Past Medical History / Comment(s): varicose veins (removed), stroke X3-left sided weakness, uses w/c & duane lift, hx TIA's, AROLDO-no CPAP, hiatal hernia, ESRD - hemodialysis M,W,F with fistula left upper extremity, prior peritoneal dialysis catheter removed, urinates frequent small amounts, hx bleeding ulcer. currently no meds for diabetes. no current wounds. History of Any Multi-Drug Resistant Organisms: None Reported Past Surgical History: Breast Surgery, Heart Catheterization, Orthopedic Surgery Additional Past Surgical History / Comment(s): Bilateral Carotid Endarterectomy, lumpectomy Rt breast, CTR bilateral wrists, pilonidal cyst removal, varicose vein removal, bilateral cataracts removed, Fistula left wrist surgery 2019; Fistula revision 05/30/20., peritoneal dialysis catheter and removal, fistulogram 06/27/24 Past Anesthesia/Blood Transfusion Reactions: Previous Problems w/ Anesthesia, Motion Sickness Additional Past Anesthesia/Blood Transfusion Reaction / Comment(s): Had trouble waking up after surgery. no problems with prior blood transfusion Smoking Status: Former smoker - Past Family History Mother Family Medical History: Cancer Additional Family Medical History / Comment(s): breast cancer w/ mets Father Family Medical History: Cancer Additional Family Medical History / Comment(s): esophageal cancer Brother(s) Family Medical History: Cancer Additional Family Medical History / Comment(s): colon cancer, esophageal cancer Medications and Allergies Home Medications Medication Instructions Recorded Confirmed Type Aspirin EC [Ecotrin Low Dose] 81 mg PO DAILY 09/19/15 06/29/24 History Albuterol Inhaler [Ventolin Hfa 2 puff INHALATION RT-Q6H PRN 10/29/22 06/29/24 History Inhaler] Atorvastatin [Lipitor] 20 mg PO HS 07/06/23 06/29/24 History Citalopram Hydrobromide [CeleXA] 20 mg PO DAILY 07/06/23 06/29/24 History carvediloL [Coreg] 12.5 mg PO BID 07/06/23 06/29/24 History Losartan [Cozaar] 50 mg PO DAILY 07/14/23 06/29/24 History Bumetanide [Bumex] 5 mg PO DAILY 01/07/24 06/29/24 History Acetaminophen Tab [Tylenol] 650 mg PO Q6H PRN 06/14/24 06/29/24 History Budesonide 2 ml INHALATION BID 06/14/24 06/29/24 History Folic Acid/Vit B Complex and C 1 tab PO DAILY 06/14/24 06/29/24 History [Yina-Hanna Tablet] Ipratropium-Albuterol Nebulize 1 dose INHALATION QID 06/14/24 06/29/24 History [Duoneb 0.5 mg-3 mg/3 ml Soln] Pantoprazole Sodium [Protonix] 40 mg PO DAILY 06/14/24 06/29/24 History polyethylene glycoL 3350 [Miralax] 17 gm PO DAILY 06/22/24 06/29/24 History Allergies Allergy/AdvReac Type Severity Reaction Status Date / Time cephalexin monohydrate Allergy Rash/Hives Verified 06/29/24 09:18 [From Keflex] Penicillins Allergy Rash/Hives Verified 06/29/24 09:18 captopril AdvReac Cough Verified 06/29/24 09:18 monohydrate Allergy Unknown Uncoded 06/29/24 09:18 Surgical - Exam Vital Signs Temp Pulse Resp BP Pulse Ox 98.1 F 58 L 18 181/75 98 06/29/24 09:23 06/29/24 09:23 06/29/24 09:23 06/29/24 09:23 06/29/24 09:23 - General well developed, well nourished, no distress - Eyes PERRL - ENT normal pinna - Neck no masses - Respiratory normal expansion - Cardiovascular Rhythm: regular - Abdomen Abdomen: soft, non tender Results - Labs Abnormal Lab Results - Last 24 Hours (Table) 06/29/24 Range/Units 09:40 POC Glucose (mg/dL) 118 H (70-110) mg/dL Assessment and Plan Plan: Gerd, history of colon polyps we will perform EGD and colonoscopy.
--- NOTE | 2024-06-29 10:58 | P.OP ---
Date of Procedure: 06/29/24 Preoperative Diagnosis: Gerd History colon polyps Postoperative Diagnosis: Antral gastritis Small sliding hiatal hernia Mild esophagitis Right colon polyp Procedure(s) Performed: EGD Colonoscopy Anesthesia: MAC Surgeon: Jacques Polanco Pathology: other (Antrum, esophagus, r right colon polyp) Condition: stable Disposition: PACU Description of Procedure: The patient was placed on the endoscopy table in the lateral position. She received IV sedation. Digital rectal exam performed. This revealed no abnormalities. A flex colonoscope was then placed patient anus and passed throughout the entire colon. Ileocecal valve could not be visualized secondary to large amount liquid stool in the right colon. The right colon was visualized had a small polyp. Was removed with the snare. The transverse colon appeared normal. In the descending sigmoid colon was a few scattered diverticuli. The scope was Ruback the rectum this appeared normal. Scope withdrawn for the patient. Next the gastric was placed oropharynx passed in the esophagus and the stomach. Scope was placed through the pylorus. The 1st and 2nd portion of the duodenum appeared normal. Scope was Ruback the antrum this is mildly inflamed. A biopsy performed. The scope was then retroflexed and the Mainer of the stomach appe ared normal. There was a small sliding hiatal hernia. The GE junction was at 40 cm. The distal esophagus appeared mildly inflamed and a biopsy performed. The proximal esophagus appeared normal. Scope withdrawn for the patient.
[2024-06-29 11:14] VITALS: RESP 16
[2024-06-29 11:17] VITALS: BP 101/54; PULSE 60
== END 2024-06-29 12:29 ==
LOC: ORWHC2ENDO 08:36
PROVIDERS: ATTEND Surgery
DX: K29.50 Unspecified chronic gastritis without bleeding (principal); D12.6 Benign neoplasm of colon, unspecified; K21.00 Gastro-esophageal reflux disease with esophagitis, without bleeding; K44.9 Diaphragmatic hernia without obstruction or gangrene; I25.10 Atherosclerotic heart disease of native coronary artery without angina pectoris; I10 Essential (primary) hypertension; J44.89 Other specified chronic obstructive pulmonary disease; E11.9 Type 2 diabetes mellitus without complications; E78.5 Hyperlipidemia, unspecified; F41.9 Anxiety disorder, unspecified; F32.A Depression, unspecified; G47.33 Obstructive sleep apnea (adult) (pediatric); M19.90 Unspecified osteoarthritis, unspecified site; Z99.89 Dependence on other enabling machines and devices; Z86.73 Personal history of transient ischemic attack (TIA), and cerebral infarction without residual deficits; Z99.2 Dependence on renal dialysis; Z98.890 Other specified postprocedural states; Z87.891 Personal history of nicotine dependence; Z80.3 Family history of malignant neoplasm of breast; Z80.0 Family history of malignant neoplasm of digestive organs; Z88.1 Allergy status to other antibiotic agents; Z88.0 Allergy status to penicillin; Z79.51 Long term (current) use of inhaled steroids; Z79.02 Long term (current) use of antithrombotics/antiplatelets; Z79.82 Long term (current) use of aspirin; Z79.899 Other long term (current) drug therapy
CPT/HCPCS: 88305; 45385; 43239; J2003; J2704; 45380

== ENCOUNTER 2024-07-10 02:27 | Inpatient (IN) | payer MEDICARE, OTHER ==
[2024-07-10 02:34] LABS: Glucose,Whole Blood 263 mg/dL (70-110)
--- NOTE | 2024-07-10 02:54 | ED ---
Recheck HPI - General Chief Complaint: Recheck/Abnormal Lab/Rx Stated Complaint: Hypertension Time Seen by Provider: 07/10/24 02:33 Source: patient, EMS, RN notes reviewed, old records reviewed Mode of arrival: EMS Limitations: no limitations - History of Present Illness Initial Comments: This is a 69-year-old female to the ER for evaluation today. This patient presents today for evaluation regards to altered mental status and hypertension. Patient has no recent change in medications no headache chest pain shortness of breath here in the ER patient is mildly altered as of mental status, unsure if it is baseline MD Complaint: other (Elevated blood pressure) -: unknown Returns Today for: other Symptoms Since Prior Visit: no new symptoms Associated Symptoms: none - Related Data Home Medications Medication Instructions Recorded Confirmed Aspirin EC [Ecotrin Low Dose] 81 mg PO DAILY@0500 09/18/07/10/24 Albuterol Inhaler [Ventolin Hfa 2 puff INHALATION RT-Q6H PRN 10/29/22 07/10/24 Inhaler] Atorvastatin [Lipitor] 20 mg PO HS 07/06/23 07/10/24 Citalopram Hydrobromide [CeleXA] 20 mg PO HS 07/06/23 07/10/24 carvediloL [Coreg] 12.5 mg PO BID 07/06/23 07/10/24 Losartan [Cozaar] 50 mg PO HS 07/14/23 07/10/24 Bumetanide [Bumex] 5 mg PO DAILY@0500 01/07/24 07/10/24 Acetaminophen Tab [Tylenol] 650 mg PO Q6H PRN 06/14/24 07/10/24 Budesonide 2 ml INHALATION RT-BID 06/14/24 07/10/24 Folic Acid/Vit B Complex and C 1 tab PO DAILY@1700 06/14/24 07/10/24 [Yina-Hanna Tablet] Ipratropium-Albuterol Nebulize 3 ml INHALATION RT-QID 06/14/24 07/10/24 [Duoneb 0.5 mg-3 mg/3 ml Soln] Pantoprazole Sodium [Protonix] 40 mg PO DAILY@0500 06/14/24 07/10/24 Amino Acids/Protein Hydrolys 30 ml PO DAILY 07/10/24 07/10/24 [Pro-Stat Awc Liquid] Allergies Allergy/AdvReac Type Severity Reaction Status Date / Time cephalexin monohydrate Allergy Rash/Hives Verified 07/10/24 10:13 [From Keflex] Penicillins Allergy Rash/Hives Verified 07/10/24 10:13 captopril AdvReac Cough Verified 07/10/24 10:13 monohydrate Allergy Unknown Uncoded 07/10/24 02:33 Review of Systems ROS Statement: Those systems with pertinent positive or pertinent negative responses have been documented in the HPI. ROS Other: All systems not noted in ROS Statement are negative. Past Medical History Past Medical History: Coronary Artery Disease (CAD), CVA/TIA, Diabetes Mellitus, Dialysis, Eye Disorder, Hyperlipidemia, Hypertension, Osteoarthritis (OA), Renal Disease, Sleep Apnea/CPAP/BIPAP Additional Past Medical History / Comment(s): varicose veins (removed), stroke X3-left sided weakness, uses w/c & duane lift, hx TIA's, AROLDO-no CPAP, hiatal hernia, ESRD - hemodialysis M,W,F with fistula left upper extremity, prior peritoneal dialysis catheter removed, urinates frequent small amounts, hx bleeding ulcer. currently no meds for diabetes. no current wounds. History of Any Multi-Drug Resistant Organisms: None Reported Past Surgical History: Breast Surgery, Heart Catheterization, Orthopedic Surgery Additional Past Surgical History / Comment(s): Bilateral Carotid Endarterectomy, lumpectomy Rt breast, CTR bilateral wrists, pilonidal cyst removal, varicose vein removal, bilateral cataracts removed, Fistula left wrist surgery 2019; Fistula revision 05/30/20., peritoneal dialysis catheter and removal, fistulogram 06/27/24 Past Anesthesia/Blood Transfusion Reactions: Previous Problems w/ Anesthesia, Motion Sickness Additional Past Anesthesia/Blood Transfusion Reaction / Comment(s): Had trouble waking up after surgery. no problems with prior blood transfusion Past Psychological History: Anxiety, Depression Smoking Status: Former smoker Past Alcohol Use History: None Reported Past Drug Use History: None Reported - Past Family History Mother Family Medical History: Cancer Additional Family Medical History / Comment(s): breast cancer w/ mets Father Family Medical History: Cancer Additional Family Medical History / Comment(s): esophageal cancer Brother(s) Family Medical History: Cancer Additional Family Medical History / Comment(s): colon cancer, esophageal cancer General Exam General appearance: alert, in no apparent distress Head exam: Present: atraumatic, normocephalic, normal inspection Eye exam: Present: normal appearance, PERRL, EOMI. Absent: scleral icterus, conjunctival injection, periorbital swelling ENT exam: Present: normal exam, mucous membranes moist Neck exam: Present: normal inspection. Absent: tenderness, meningismus, lymphadenopathy Respiratory exam: Present: normal lung sounds bilaterally. Absent: respiratory distress, wheezes, rales, rhonchi, stridor Cardiovascular Exam: Present: regular rate, normal rhythm, normal heart sounds. Absent: systolic murmur, diastolic murmur, rubs, gallop, clicks GI/Abdominal exam: Present: soft, normal bowel sounds. Absent: distended, tenderness, guarding, rebound, rigid Extremities exam: Present: normal inspection, full ROM, normal capillary refill. Absent: tenderness, pedal edema, joint swelling, calf tenderness Back exam: Present: normal inspection Neurological exam: Present: alert, oriented X3, CN II-XII intact Psychiatric exam: Present: normal affect, normal mood Skin exam: Present: warm, dry, intact, normal color. Absent: rash Course Vital Signs 07/10/24 07/10/24 07/10/24 02:29 03:35 04:50 Temperature 98.2 F Pulse Rate 64 67 82 Pulse Rate [ Grid Trimmer ] Respiratory 18 18 18 Rate Blood Pressure 164/63 174/69 178/94 Blood Pressure [Right Arm] O2 Sat by Pulse 94 L 98 93 L Oximetry 07/10/24 07/10/24 07/10/24 06:35 07:25 09:30 Temperature 98.2 F Pulse Rate 72 71 69 Pulse Rate [ Grid Trimmer ] Respiratory 18 19 18 Rate Blood Pressure 158/69 186/83 168/69 Blood Pressure [Right Arm] O2 Sat by Pulse 93 L 98 96 Oximetry 07/10/24 07/10/24 07/10/24 10:34 12:24 13:00 Temperature 98.2 F Pulse Rate 66 64 Pulse Rate [ 65 Grid Trimmer ] Respiratory 18 18 18 Rate Blood Pressure 168/66 163/71 Blood Pressure 176/74 [Right Arm] O2 Sat by Pulse 97 98 Oximetry 07/10/24 07/10/24 07/10/24 13:11 13:56 14:43 Temperature Pulse Rate 69 71 64 Pulse Rate [ Grid Trimmer ] Respiratory 18 16 Rate Blood Pressure 173/67 116/62 Blood Pressure [Right Arm] O2 Sat by Pulse 98 96 Oximetry 07/10/24 07/10/24 07/10/24 14:55 16:06 17:14 Temperature Pulse Rate 67 73 70 Pulse Rate [ Grid Trimmer ] Respiratory 18 18 Rate Blood Pressure 177/69 155/65 Blood Pressure [Right Arm] O2 Sat by Pulse 96 97 Oximetry 07/10/24 07/10/24 07/10/24 18:42 20:20 20:36 Temperature 98.1 F Pulse Rate 71 80 87 Pulse Rate [ Grid Trimmer ] Respiratory 17 Rate Blood Pressure 157/65 Blood Pressure [Right Arm] O2 Sat by Pulse 97 Oximetry - Reevaluation(s) Reevaluation #1: 07/10/24 03:39 Medical records reviewed Reevaluation #2: 07/10/24 03:39 Patient's blood pressure does appear improved from reported blood pressure at [facility] Reevaluation #3: Patient's symptoms improved here in the emergency department patient informed of results and questions answered Reevaluation #4: Was pt. sent in by a medical professional or institution (, PA, SUPPLIER SPECIALIST, urgent care, hospital, or detention...) When possible be specific @ -no Did you speak to anyone other than the patient for history (EMS, parent, family, police, friend...)? What history was obtained from this source @ -no Did you review nursing and triage notes (agree or disagree)? Why? @ -agree Are old charts reviewed (outside hosp., previous admission, EMS record, old EKG, old radiological studies, urgent care reports/EKG's, detention records)? Report findings @ -yes Differential Diagnosis (chest pain, altered mental status, abdominal pain women, abdominal pain men, vaginal bleeding, weakness, fever, dyspnea, syncope, headache, dizziness, GI bleed, back pain, seizure, CVA, palpatations, mental health, musculoskeletal)? @ -prior EKG interpreted by me (3pts min.). @ -yes X-rays interpreted by me (1pt min.). @ -yes positive for pneumonia CT interpreted by me (1pt min.). @ -no U/S interpreted by me (1pt. min.). @ -no What testing was considered but not performed or refused? (CT, X-rays, U/S, l abs)? Why? @ -none What meds were considered but not given or refused? Why? @ -none Did you discuss the management of the patient with other professionals (professionals i.e. , PA, SUPPLIER SPECIALIST, lab, RT, psych nurse, social welfare administrator, calculus teacher, teacher, hazard mitigation officer, case packer)? Give summary @ -no Was smoking cessation discussed for >3mins.? @ -no Was critical care preformed (if so, how long)? @ -yes31 Were there social determinants of health that impacted care today? How? (Homelessness, low income, unemployed, alcoholism, drug addiction, transportation, low edu. Level, literacy, decrease access to med. care, alf, rehab)? @ -none Was there de-escalation of care discussed even if they declined (Discuss DNR or withdrawal of care, Hospice)? DNR status @ -no What co-morbidities impacted this encounter? (DM, HTN, Smoking, COPD, CAD, Cancer, CVA, ARF, Chemo, Hep., AIDS, mental health diagnosis, sleep apnea, morbid obesity)? @ -none Was patient admitted / discharged? Hospital course, mention meds given and route, prescriptions, significant lab abnormalities, going to OR and other pertinent info. @ - 69 female to the ED for AMS, HTN, found to have pneumonia, weakness, ams, leukocytosis, admit for IV abx Admitted Undiagnosed new problem with uncertain prognosis? @ -no Drug Therapy requiring intensive monitoring for toxicity (Heparin, Nitro, Insulin, Cardizem)? @ -no Were any procedures done? @ -no Diagnosis/symptom? @ -altered mental status with pneumonia Acute, or Chronic, or Acute on Chronic? @ -Acute Uncomplicated (without systemic symptoms) or Complicated (systemic symptoms)? @ -Complicated Side effects of treatment? @ -no Exacerbation, Progression, or Severe Exacerbation? @ -exacerbation Poses a threat to life or bodily function? How? (Chest pain, [place], [place], pneumonia, PE, COPD, DKA, ARF, appy, cholecystitis, CVA, Diverticulitis, Homicidal, Suicidal, threat to staff... and all critical care pts) @ -yes extremes of age Reevaluation #5: Differential Altered Mental Status: Hypoglycemia, DKA, hypercapnia, ETOH, overdose, CO poisoning, trauma, myxedema coma, HTN encephalopathy, infection, encephalitis, psychosis, intercranial hemorrhage, hepatic encephalopathy, meningitis, CVA, this is not meant to be an all-inclusive list Medical Decision Making - Medical Decision Making 69 female to the ED for AMS, HTN, found to have pneumonia, weakness, ams, leukocytosis, admit for IV abx - Lab Data Result diagrams: 07/15/24 05:35 07/16/24 07:50 Lab Results 07/10/24 07/10/24 07/10/24 Range/Units 02:31 02:52 02:52 WBC 17.92 H (4.50-10.00) 10*3/uL RBC 4.35 (4.10-5.20) 10*6/uL Hgb 13.1 (12.0-15.0) g/dL Hct 40.3 (37.2-46.3) % MCV 92.6 (80.0-97.0) fL MCH 30.1 (27.0-32.0) pg MCHC 32.5 (32.0-37.0) g/dL Plt Count 136 L (140-440) 10*3/uL MPV 9.9 (9.5-12.2) fL Immature Gran % (Auto) 1.1 % Neutrophils % 93.3 % Lymphocytes % 1.8 % Monocytes % 3.5 % Eosinophils % 0.0 % Basophils % 0.3 % Immature Gran # 0.20 H (0.00-0.04) 10*3/uL Neutrophils # 16.72 H (1.80-7.70) 10*3/uL Lymphocytes # 0.32 L (0.90-5.00) 10*3/uL Monocytes # 0.62 (0.20-1.00) 10*3/uL Eosinophils # 0.00 L (0.04-0.35) 10*3/uL Basophils # 0.06 (0.00-0.10) 10*3/uL PT 10.4 (10.0-12.5) sec INR 0.9 (<1.2) APTT 19.5 L (22.0-30.0) sec Sodium (137-145) mmol/L Potassium (3.5-5.1) mmol/L Chloride (98-107) mmol/L Carbon Dioxide (22-30) mmol/L Anion Gap mmol/L BUN (7-17) mg/dL Creatinine (0.52-1.04) mg/dL Est GFR (CKD-EPI)AfAm (>60 ml/min/1.73 sqM) Est GFR (CKD-EPI)NonAf (>60 ml/min/1.73 sqM) Glucose (74-99) mg/dL POC Glucose (mg/dL) 263 H (70-110) mg/dL POC Glu Emergency Vehicle Driver ID Mansoor Jacob Plasma Lactic Acid Kong (0.7-2.0) mmol/L Calcium (8.4-10.2) mg/dL Phosphorus (2.5-4.5) mg/dL Magnesium (1.6-2.3) mg/dL Total Bilirubin (0.2-1.3) mg/dL AST (14-36) U/L ALT (4-34) U/L Alkaline Phosphatase (38-126) U/L Troponin I (0.000-0.034) ng/mL NT-Pro-B Natriuret Pep pg/mL Total Protein (6.3-8.2) g/dL Albumin (3.5-5.0) g/dL 07/10/24 07/10/24 07/10/24 Range/Units 02:52 02:52 02:52 WBC (4.50-10.00) 10*3/uL RBC (4.10-5.20) 10*6/uL Hgb (12.0-15.0) g/dL Hct (37.2-46.3) % MCV (80.0-97.0) fL MCH (27.0-32.0) pg MCHC (32.0-37.0) g/dL Plt Count (140-440) 10*3/uL MPV (9.5-12.2) fL Immature Gran % (Auto) % Neutrophils % % Lymphocytes % % Monocytes % % Eosinophils % % Basophils % % Immature Gran # (0.00-0.04) 10*3/uL Neutrophils # (1.80-7.70) 10*3/uL Lymphocytes # (0.90-5.00) 10*3/uL Monocytes # (0.20-1.00) 10*3/uL Eosinophils # (0.04-0.35) 10*3/uL Basophils # (0.00-0.10) 10*3/uL PT (10.0-12.5) sec INR (<1.2) APTT (22.0-30.0) sec Sodium 134 L (137-145) mmol/L Potassium 6.3 H* (3.5-5.1) mmol/L Chloride 93 L (98-107) mmol/L Carbon Dioxide 23 (22-30) mmol/L Anion Gap 18 mmol/L BUN 77 H (7-17) mg/dL Creatinine 6.07 H (0.52-1.04) mg/dL Est GFR (CKD-EPI)AfAm 7 (>60 ml/min/1.73 sqM) Est GFR (CKD-EPI)NonAf 6 (>60 ml/min/1.73 sqM) Glucose 260 H (74-99) mg/dL POC Glucose (mg/dL) (70-110) mg/dL POC Glu Emergency Vehicle Driver ID Plasma Lactic Acid Kong 1.6 (0.7-2.0) mmol/L Calcium 9.7 (8.4-10.2) mg/dL Phosphorus 3.9 (2.5-4.5) mg/dL Magnesium 1.3 L (1.6-2.3) mg/dL Total Bilirubin 0.5 (0.2-1.3) mg/dL AST 50 H (14-36) U/L ALT 48 H (4-34) U/L Alkaline Phosphatase 112 (38-126) U/L Troponin I 0.144 H* (0.000-0.034) ng/mL NT-Pro-B Natriuret Pep 69643 pg/mL Total Protein 6.5 (6.3-8.2) g/dL Albumin 3.9 (3.5-5.0) g/dL - EKG Data -: EKG Interpreted by Me (EKG is sinus 61 WA 169 QRS 89 QTc 462) - Radiology Data Radiology results: report reviewed (CXR is positive for pna), image reviewed Critical Care Time Critical Care Time: Yes Total Critical Care Time: 31 Disposition Clinical Impression: Chronic renal failure, Weakness, ESRD (end stage renal disease) on dialysis, ISABEL (acute kidney injury), Altered mental status, Pneumonia, Leukocytosis, Hyperkalemia, NSTEMI (non-ST elevated myocardial infarction) Disposition: ADMITTED IP TO THIS HOSP Condition: Fair Is patient prescribed a controlled substance at d/c from ED?: No Time of Disposition: 05:00
[2024-07-10 02:59] LABS: Basophils # (A) 0.06 10*3/uL (0.00-0.10); Basophils % (A) 0.3 %; HCT 40.3 % (37.2-46.3); HGB 13.1 g/dL (12.0-15.0); Lymphocytes # (A) 0.32 10*3/uL (0.90-5.00); Lymphocytes % (A) 1.8 %; MCH 30.1 pg (27.0-32.0); MCHC 32.5 g/dL (32.0-37.0); MCV 92.6 fL (80.0-97.0); Mean Platelet Volume 9.9 fL (9.5-12.2); Monocytes # (A) 0.62 10*3/uL (0.20-1.00); Monocytes % (A) 3.5 %; Neutrophils # (A) 16.72 10*3/uL (1.80-7.70); Neutrophils % (A) 93.3 %; Platelet Count 136 10*3/uL (140-440); RBC 4.35 10*6/uL (4.10-5.20); RDW 16.1 % (11.5-14.5); WBC 17.92 10*3/uL (4.50-10.00)
[2024-07-10] MEDS: LACTATED RINGERS 1,000 ML IV SCH (03:20)
[2024-07-10 03:21] LABS: ALT 48 U/L (4-34); AST 50 U/L (14-36); African American GFR (CKD) 7 (>60 ml/min/1.73 sqM); Albumin 3.9 g/dL (3.5-5.0); Alkaline Phosphatase 112 U/L (38-126); Anion Gap 18 mmol/L; Blood Urea Nitrogen 77 mg/dL (7-17); Calcium 9.7 mg/dL (8.4-10.2); Carbon Dioxide 23 mmol/L (22-30); Chloride 93 mmol/L (98-107); Glucose 260 mg/dL (74-99); Magnesium 1.3 mg/dL (1.6-2.3); Non-African American GFR(CKD) 6 (>60 ml/min/1.73 sqM); Phosphorus 3.9 mg/dL (2.5-4.5); Sodium 134 mmol/L (137-145); Total Bilirubin 0.5 mg/dL (0.2-1.3); Total Protein 6.5 g/dL (6.3-8.2)
[2024-07-10 03:22] LABS: INR 0.9 (<1.2); Prothrombin Time 10.4 sec (10.0-12.5)
[2024-07-10 03:29] LABS: NT-Pro-B-Type Natriuretic Pept 26100 pg/mL
[2024-07-10 03:39] LABS: Partial Thromboplastin Time 19.5 sec (22.0-30.0)
[2024-07-10 03:56] LABS: Potassium 6.3 mmol/L (3.5-5.1)
[2024-07-10] MEDS: LEVOFLOXACIN 750MG-D5W PMX 750 MG in DEXTROSE/WATER 1 150ML.BAG IVPB STA (04:34)
--- NOTE | 2024-07-10 04:46 | XR ---
EXAM: XR Chest, 1 View CLINICAL HISTORY: ITS.REASON XR Reason: ams TECHNIQUE: Frontal view of the chest. COMPARISON: X-ray dated 08/25/2023. FINDINGS: Lungs: Opacification of the left lung base. Pleural space: Left-sided pleural effusion. No pneumothorax. Heart: Moderate enlargement of the cardiac silhouette. Mediastinum: Unremarkable. Normal mediastinal contour. Bones/joints: Degenerative changes are seen within the spine and shoulders. No acute fracture. Vasculature: Calcifications overlie the aorta. IMPRESSION: Left-sided pleural effusion with adjacent atelectasis and/or pneumonia not excluded.
[2024-07-10] MEDS ORDERED: VANCOMYCIN IV PER PHARMACY 1 EACH MISC MISCELLANE PRN (05:06)
[2024-07-10] MEDS ORDERED: PNEUMONIA PROTOCOL UTILIZED 1 EACH MISC PO PRN (05:06)
[2024-07-10] MEDS ORDERED: HEPARIN SODIUM 1,000 UN/ML (10ML VL) IV PRN (06:24)
[2024-07-10] MEDS: SODIUM BICARB 8.4% 50 ML SYR (1 MEQ/ML) IV STA (06:39)
[2024-07-10] MEDS: DEXTROSE 50% SYRINGE 50 ML IVP STA (06:39)
[2024-07-10] MEDS: INSULIN REGULAR 100 UNIT/ML VIAL (IV) IV ONE (06:40)
[2024-07-10] MEDS: VANCOMYCIN 1,500 MG in SODIUM CHLORIDE 0.9% 500 ML 500 ML IVPB ONE (06:49)
[2024-07-10] MEDS: HEPARIN SOD,PORK IN 0.45% NACL 25,000 UNIT in 0.45% NACL 1 250ML.BAG IV SCH (06:55)
[2024-07-10] MEDS: HEPARIN SODIUM 1,000 UN/ML (10ML VL) IV ONE (06:57)
[2024-07-10] MEDS: SODIUM ZIRCONIUM CYCLOSILICATE 10 GM PACKET PO ONE (07:24)
[2024-07-10] MEDS: ASPIRIN 81 MG PO STA (07:30)
--- NOTE | 2024-07-10 09:17 | P.NPCON ---
History of Present Illness - Reason for Consult end stage renal disease - History of Present Illness Reason for consultation: End-stage renal disease History of present illness: Patient is a 69-year-old female seen in renal consultation for end-stage renal disease. She is maintained on hemodialysis on Wednesday schedule. Patient [facility]. She was sent to the hospital due to shortness of breath. Patient denies any shortness of breath and feels at baseline. She states that she wears a nasal cannula at the [facility] and is currently on 2 L nasal cannula. Potassium was noted to be elevated at 6.3 which was medically treated. She will be undergoing dialysis shortly. She does have longstanding history of diabetes. Denies vomiting or diarrhea. Afebrile. I do see losartan on her home medication list which is currently held. Vital signs are stable. General: No acute distress. HEENT: Head exam is unremarkable. On nasal cannula. LUNGS: Scattered rhonchi. HEART: Rate and Rhythm are regular. ABDOMEN: Nontender. EXTREMITITES: 2+ edema. Past Medical History Past Medical History: Coronary Artery Disease (CAD), CVA/TIA, Diabetes Mellitus, Dialysis, Eye Disorder, Hyperlipidemia, Hypertension, Osteoarthritis (OA), Renal Disease, Sleep Apnea/CPAP/BIPAP Additional Past Medical History / Comment(s): varicose veins (removed), stroke X3-left sided weakness, uses w/c & duane lift, hx TIA's, AROLDO-no CPAP, hiatal hernia, ESRD - hemodialysis M,W,F with fistula left upper extremity, prior peritoneal dialysis catheter removed, urinates frequent small amounts, hx bleeding ulcer. currently no meds for diabetes. no current wounds. History of Any Multi-Drug Resistant Organisms: None Reported Past Surgical History: Breast Surgery, Heart Catheterization, Orthopedic Surgery Additional Past Surgical History / Comment(s): Bilateral Carotid Endarterectomy, lumpectomy Rt breast, CTR bilateral wrists, pilonidal cyst removal, varicose vein removal, bilateral cataracts removed, Fistula left wrist surgery 2019; Fistula revision 05/30/20., peritoneal dialysis catheter and removal, fistulogram 06/27/24 Past Anesthesia/Blood Transfusion Reactions: Previous Problems w/ Anesthesia, Motion Sickness Additional Past Anesthesia/Blood Transfusion Reaction / Comment(s): Had trouble waking up after surgery. no problems with prior blood transfusion Past Psychological History: Anxiety, Depression Smoking Status: Former smoker Past Alcohol Use History: None Reported Past Drug Use History: None Reported - Past Family History Mother Family Medical History: Cancer Additional Family Medical History / Comment(s): breast cancer w/ mets Father Family Medical History: Cancer Additional Family Medical History / Comment(s): esophageal cancer Brother(s) Family Medical History: Cancer Additional Family Medical History / Comment(s): colon cancer, esophageal cancer Medications and Allergies Home Medications Medication Instructions Recorded Confirmed Type Aspirin EC [Ecotrin Low Dose] 81 mg PO DAILY 09/19/15 06/29/24 History Albuterol Inhaler [Ventolin Hfa 2 puff INHALATION RT-Q6H PRN 10/29/22 06/29/24 History Inhaler] Atorvastatin [Lipitor] 20 mg PO HS 07/06/23 06/29/24 History Citalopram Hydrobromide [CeleXA] 20 mg PO DAILY 07/06/23 06/29/24 History carvediloL [Coreg] 12.5 mg PO BID 07/06/23 06/29/24 History Losartan [Cozaar] 50 mg PO DAILY 07/14/23 06/29/24 History Bumetanide [Bumex] 5 mg PO DAILY 01/07/24 06/29/24 History Acetaminophen Tab [Tylenol] 650 mg PO Q6H PRN 06/14/24 06/29/24 History Budesonide 2 ml INHALATION BID 06/14/24 06/29/24 History Folic Acid/Vit B Complex and C 1 tab PO DAILY 06/14/24 06/29/24 History [Yina-Hanna Tablet] Ipratropium-Albuterol Nebulize 1 dose INHALATION QID 06/14/24 06/29/24 History [Duoneb 0.5 mg-3 mg/3 ml Soln] Pantoprazole Sodium [Protonix] 40 mg PO DAILY 06/14/24 06/29/24 History polyethylene glycoL 3350 [Miralax] 17 gm PO DAILY 06/22/24 06/29/24 History Allergies Allergy/AdvReac Type Severity Reaction Status Date / Time cephalexin monohydrate Allergy Rash/Hives Verified 07/10/24 02:33 [From Keflex] Penicillins Allergy Rash/Hives Verified 07/10/24 02:33 captopril AdvReac Cough Verified 07/10/24 02:33 monohydrate Allergy Unknown Uncoded 07/10/24 02:33 Physical Exam Vitals: Vital Signs Temp Pulse Resp BP Pulse Ox 07/10/24 07:25 98.2 F 71 19 186/83 98 07/10/24 06:35 72 18 158/69 93 L 07/10/24 04:50 82 18 178/94 93 L 07/10/24 03:35 67 18 174/69 98 07/10/24 02:29 98.2 F 64 18 164/63 94 L Intake and Output 07/09/24 07/10/24 07/10/24 22:59 06:59 14:59 Other: Weight 88.451 kg Results - Lab Results Most recent lab results Calcium 9.7 mg/dL (8.4-10.2) 07/10/24 02:52 Phosphorus 3.9 mg/dL (2.5-4.5) 07/10/24 02:52 Magnesium 1.3 mg/dL (1.6-2.3) L 07/10/24 02:52 07/10/24 02:52 07/10/24 02:52 Assessment and Plan Plan: Assessment: 1. End-stage renal disease maintained on hemodialysis on Wednesday schedule. 2. Hyperkalemia secondary to chronic kidney disease. Losartan noted on home medication list. 3. Volume overload. 4. Diabetes mellitus. 5. Hypertension with chronic kidney disease. 6. Chronic kidney disease mineral bone disease. Plan: Hyperkalemia medically treated earlier this morning. Hemodialysis today. Repeat potassium level this evening. Continue to hold losartan. Resume Bumex at a dose of 2 mg daily. Resume Coreg. Add as needed hydralazine. Continue to hold losartan. Follow-up echocardiogram. Thank you for the consultation. I will continue to follow the patient with you during her hospital stay.
--- NOTE | 2024-07-10 12:07 | P.CRDCN ---
History of Present Illness Consult date: 07/10/24 Reason for Consult (text): Elevated troponin History of present illness: This is a 69-year-old female patient of Dr. Mancuso with past medical history of hypertension, hyperlipidemia, carotid artery stenosis status post bilateral carotid endarterectomy, prior stroke, end-stage renal disease on hemodialysis, relatively normal heart catheterization performed at [facility] 5 years ago. We have been asked to evaluate the patient for elevated troponin. Patient states that she is feeling better now. She states that she came into the hospital because her stomach was hurting. She denies chest pain. She states she chronically has shortness of breath and is on home oxygen. According to the ER documentation, patient came in due to altered mental status and hypertension. Blood pressure 168/66, heart rate 66, pulse ox 97% on 2 L nasal cannula. Patient has been started on IV antibiotics. -EKG: Sinus rhythm with no acute ST changes -Chest x-ray: Left pleural effusion with adjacent atelectasis and/or pneumonia not excluded. -Laboratory studies: WBC 17.9, hemoglobin 13.1, potassium 6.3, BUN 77 creatinine 6.07, sodium 134. Troponin 0.144 and 0. 174. proBNP 26,100. -Home cardiac medications: Aspirin 81 mg daily, atorvastatin 20 mg at bedtime, Bumex 5 mg daily, Coreg 12.5 mg twice daily, losartan 50 mg at bedtime. -Echocardiogram performed at [facility] on 07/07/2023 revealed technically difficult study, normal LV systolic function. Mild mitral stenosis and mild mitral regurgitation. Aortic sclerosis with mild aortic stenosis. Severe pulmonary hypertension. -Lexiscan Cardiolite stress test performed in the office in 09/2021 revealed normal Lexiscan stress test without inducible ischemia. Normal myocardial perfusion. EF 55%. Review Of Systems: At the time of my exam: CONSTITUTIONAL: Denies fever or chills. HEENT: Denies blurred vision, vision changes, or eye pain. Denies hemoptysis CARDIOVASCULAR: Denies chest pain. Denies orthopnea. Denies PND. Denies palpitations RESPIRATORY: Denies shortness of breath. GASTROINTESTINAL: Denies abdominal pain. Denies nausea or vomiting. HEMATOLOGIC: Denies bleeding disorders. GENITOURINARY: Denies any blood in urine. SKIN: Denies puritis. Denies rash. Physical examination: Gen: This is 69-year-old female in no acute distress VS: reviewed HEENT: Head is atraumatic, normocephalic. Pupils equal, round. Sclerae is anicteric. NECK: Supple. No JVD. LUNGS: Clear to auscultation. No wheezes or rhonchi. No intercostal retractions. HEART: Regular rate and rhythm. No murmur. ABDOMEN: Soft No tenderness. EXTREMITIES: No pedal edema. No calf tenderness. NEUROLOGICAL: Patient is awake, alert. Assessment: Metabolic encephalopathy Elevated troponin secondary to poor renal clearance and infection Leukocytosis Hyperkalemia Hypertension Hyperlipidemia Carotid artery stenosis status post bilateral carotid endarterectomy History of CVA End-stage renal disease on hemodialysis Chronic hypoxic respiratory failure on home O2 Plan: Resume patient's home cardiac medications per the following changes Bumex 2 mg daily and hold losartan per nephrology Patient started on as needed hydralazine per nephrology Nephrology has started patient on Bumex 2 mg oral daily Obtain 2-D echocardiogram and Doppler study to assess cardiac structure and function Patient may be transferred to the [facility] floor Discontinue telemetry Thank you kindly for this consultation. Nurse practitioner note has been reviewed, I agree with documented findings and plan of care. Patient was seen and examined. Past Medical History Past Medical History: Coronary Artery Disease (CAD), CVA/TIA, Diabetes Mellitus, Dialysis, Eye Disorder, Hyperlipidemia, Hypertension, Osteoarthritis (OA), Renal Disease, Sleep Apnea/CPAP/BIPAP Additional Past Medical History / Comment(s): varicose veins (removed), stroke X3-left sided weakness, uses w/c & duane lift, hx TIA's, AROLDO-no CPAP, hiatal hernia, ESRD - hemodialysis M,W,F with fistula left upper extremity, prior peritoneal dialysis catheter removed, urinates frequent small amounts, hx bleeding ulcer. currently no meds for diabetes. no current wounds. History of Any Multi-Drug Resistant Organisms: None Reported Past Surgical History: Breast Surgery, Heart Catheterization, Orthopedic Surgery Additional Past Surgical History / Comment(s): Bilateral Carotid Endarterectomy, lumpectomy Rt breast, CTR bilateral wrists, pilonidal cyst removal, varicose vein removal, bilateral cataracts removed, Fistula left wrist surgery 2019; Fistula revision 05/30/20., peritoneal dialysis catheter and removal, fistulogram 06/27/24 Past Anesthesia/Blood Transfusion Reactions: Previous Problems w/ Anesthesia, Motion Sickness Additional Past Anesthesia/Blood Transfusion Reaction / Comment(s): Had trouble waking up after surgery. no problems with prior blood transfusion Past Psychological History: Anxiety, Depression Smoking Status: Former smoker Past Alcohol Use History: None Reported Past Drug Use History: None Reported - Past Family History Mother Family Medical History: Cancer Additional Family Medical History / Comment(s): breast cancer w/ mets Father Family Medical History: Cancer Additional Family Medical History / Comment(s): esophageal cancer Brother(s) Family Medical History: Cancer Additional Family Medical History / Comment(s): colon cancer, esophageal cancer Medications and Allergies Home Medications Medication Instructions Recorded Confirmed Type Aspirin EC [Ecotrin Low Dose] 81 mg PO DAILY@0500 09/19/15 07/10/24 History Albuterol Inhaler [Ventolin Hfa 2 puff INHALATION RT-Q6H PRN 10/29/22 07/10/24 History Inhaler] Atorvastatin [Lipitor] 20 mg PO HS 07/06/23 07/10/24 History Citalopram Hydrobromide [CeleXA] 20 mg PO HS 07/06/23 07/10/24 History carvediloL [Coreg] 12.5 mg PO BID 07/06/23 07/10/24 History Losartan [Cozaar] 50 mg PO HS 07/14/23 07/10/24 History Bumetanide [Bumex] 5 mg PO DAILY@0500 01/07/24 07/10/24 History Acetaminophen Tab [Tylenol] 650 mg PO Q6H PRN 06/14/24 07/10/24 History Budesonide 2 ml INHALATION RT-BID 06/14/24 07/10/24 History Folic Acid/Vit B Complex and C 1 tab PO DAILY@1700 06/14/24 07/10/24 History [Yina-Hanna Tablet] Ipratropium-Albuterol Nebulize 3 ml INHALATION RT-QID 06/14/24 07/10/24 History [Duoneb 0.5 mg-3 mg/3 ml Soln] Pantoprazole Sodium [Protonix] 40 mg PO DAILY@0500 06/14/24 07/10/24 History Amino Acids/Protein Hydrolys 30 ml PO DAILY 07/10/24 07/10/24 History [Pro-Stat Awc Liquid] Allergies Allergy/AdvReac Type Severity Reaction Status Date / Time cephalexin monohydrate Allergy Rash/Hives Verified 07/10/24 10:13 [From Keflex] Penicillins Allergy Rash/Hives Verified 07/10/24 10:13 captopril AdvReac Cough Verified 07/10/24 10:13 monohydrate Allergy Unknown Uncoded 07/10/24 02:33 Physical Exam Vitals: Vital Signs Temp Pulse Resp BP Pulse Ox 07/10/24 07:25 98.2 F 71 19 186/83 98 07/10/24 06:35 72 18 158/69 93 L 07/10/24 04:50 82 18 178/94 93 L 07/10/24 03:35 67 18 174/69 98 07/10/24 02:29 98.2 F 64 18 164/63 94 L Intake and Output 07/09/24 07/10/24 07/10/24 22:59 06:59 14:59 Other: Weight 88.451 kg Results 07/10/24 02:52 07/10/24 02:52 Cardiac Enzymes 07/10/24 07/10/24 07/10/24 Range/Units 02:52 02:52 06:43 AST 50 H (14-36) U/L Troponin I 0.144 H* 0.174 H* (0.000-0.034) ng/mL Coagulation 07/10/24 Range/Units 02:52 PT 10.4 (10.0-12.5) sec APTT 19.5 L (22.0-30.0) sec CBC 07/10/24 Range/Units 02:52 WBC 17.92 H (4.50-10.00) 10*3/uL RBC 4.35 (4.10-5.20) 10*6/uL Hgb 13.1 (12.0-15.0) g/dL Hct 40.3 (37.2-46.3) % Plt Count 136 L (140-440) 10*3/uL Comprehensive Metabolic Panel 07/10/24 Range/Units 02:52 Sodium 134 L (137-145) mmol/L Potassium 6.3 H* (3.5-5.1) mmol/L Chloride 93 L (98-107) mmol/L Carbon Dioxide 23 (22-30) mmol/L BUN 77 H (7-17) mg/dL Creatinine 6.07 H (0.52-1.04) mg/dL Glucose 260 H (74-99) mg/dL Calcium 9.7 (8.4-10.2) mg/dL AST 50 H (14-36) U/L ALT 48 H (4-34) U/L Alkaline Phosphatase 112 (38-126) U/L Total Protein 6.5 (6.3-8.2) g/dL Albumin 3.9 (3.5-5.0) g/dL Current Medications Generic Name Dose Route Start Last Admin Trade Name Freq PRN Reason Stop Dose Admin Albuterol/Ipratropium 3 ml 07/10/24 05:06 Ipratropium-Albuterol 3 Ml Neb INHALATION RT-Q4H PRN shortness of breath Aspirin 325 mg 07/10/24 09:00 Aspirin 325 Mg Tab PO DAILY RANDI Heparin Sodium (Porcine) 0 unit 07/10/24 06:24 Heparin Sodium 1,000 Un/Ml (10ml Vl) IV PER PROTOCOL PRN Low PTT Protocol Lactated Ringer's 1,000 mls @ 20 mls/hr 07/10/24 03:00 07/10/24 03:20 Lactated Ringers IV 20 mls/hr .Q24H RANDI Administration Levofloxacin 500 mg/ IV 100 mls @ 66.667 mls/hr 07/12/24 09:00 Solution IVPB Q48H RANDI Protocol Vancomycin HCl 1,500 mg/ 500 mls @ 167 mls/hr 07/10/24 06:00 07/10/24 06:49 Sodium Chloride IVPB 07/10/24 08:59 167 mls/hr ONCE ONE Administration Heparin Sodium/Sodium Chloride 250 mls @ 10 mls/hr 07/10/24 06:30 07/10/24 06:55 25,000 unit/ Sodium Chloride IV 11.306 units/kg/hr .Q24H RANDI 10 mls/hr Administration Protocol 11.306 UNITS/KG/HR Miscellaneous Information 1 each 07/10/24 05:06 Pneumonia Protocol Utilized 1 Each Misc PO ONCE PRN Per Protocol Miscellaneous Information 1 each 07/10/24 05:06 Vancomycin Iv Per Pharmacy 1 Each Misc MISCELLANE 07/17/24 05:05 DIRECTED PRN Per Protocol Protocol Sodium Zirconium Cyclosilicate 10 gm 07/10/24 16:00 Sodium Zirconium Cyclosilicate 10 Gm Packet PO 07/11/24 16:01 TID RANDI Intake and Output 07/09/24 07/10/24 07/10/24 22:59 06:59 14:59 Other: Weight 88.451 kg 07/10/24 02:52 07/10/24 02:52
[2024-07-10] MEDS: carvediloL 12.5 MG TAB PO SCH (13:10)
[2024-07-10] MEDS: ASPIRIN 325 MG TAB PO SCH (13:11)
[2024-07-10] MEDS ORDERED: ALBUTEROL NEBULIZED 2.5 MG/3 ML INHALATION PRN (13:41)
--- NOTE | 2024-07-10 13:53 | P.HPIM ---
History of Present Illness H&P Date: 07/10/24 Patient is a 69-year-old female with a history of multiple comorbidities including ESRD on hemodialysis on Mondays, Wednesdays and Fridays was brought to the ER via EMS from [facility] with complaints of altered mental status and hypertension since yesterday. Chest x-ray done in the ER shows concern for left-sided pleural effusion with pneumonia. Patient was started on IV levofloxacin. Patient reports that she has been feeling mild shortness of breath but no cough. Patient denies any sick contacts. Patient denies chest pain, fever, chills, nausea, vomiting but admits to being generally weak and fatigued. Her lab work in the ER shows WBC 17.92, hemoglobin 13.1, platelet count 136, neutrophil count 16.72, sodium 134, potassium 6.3, chloride 93, BUN 37, creatinine 6.07, glucose 260, lactic acid 1.6, EGFR 7, magnesium 1.3, AST 50, ALT 48, troponin I 0.144, repeat troponin I 0.174, NT proBNP 95522. Vital signs on arrival shows temperature 98.2 F, pulse rate 64, respirate 18, blood pressure 164/63, oxygen saturation 94% on 2 L via nasal cannula. EKG shows ventricular rate of 61 bpm, NJ interval 169 ms, QRS duration of 100 ms, QTc of 462. Nonspecific ST-T wave changes noted. Tall T waves noted diffusely. Of note, patient states that she is not oxygen dependent Review of systems: Pertinent positives and negatives as discussed in HPI, a complete review of systems was performed and all other systems are negative. Social history: Tobacco: Former smoker Physical examination: Vital signs reviewed General: non toxic, no distress, appears at stated age, overweight Derm: no unusual rashes/lesions, warm, AV fistula on the left arm functioning well Head: atraumatic, normocephalic, symmetric Eyes: EOMI, no lid lag, anicteric sclera, pupils equal round reactive to light ENT: Nose and ears atraumatic Neck: No cervical lymphadenopathy, trachea midline, supple Mouth: no lip lesion, mucus membranes moist Cardiovascular: S1S2 reg, no murmur, positive dorsalis pedis pulse bilateral, 3+ pitting edema Lungs: bilateral expiratory wheezing noted, no rhonchi, no rales, no accessory m uscle use Abdominal: soft, nontender to palpation, no guarding Ext: muscle strength 5 out of 5 in all 4 extremities grossly, no gross muscle atrophy, no contractures, Neuro: CN II-XI grossly intact, no gross focal neuro deficits Psych: Alert, oriented, appropriate affect Assessment/Plan: Patient is a 69-year-old female with a history of multiple comorbidities including ESRD on hemodialysis on Mondays, Wednesdays and Fridays was brought to the ER via EMS from [facility] with complaints of altered mental status and hypertension since yesterday. Case was discussed with the Emergency Room provider and decision was made to admit the patient for altered mental status likely secondary to possible community-acquired pneumonia. Labs and images: Chest x-ray done in the ER shows concern for left-sided pleural effusion with pneumonia. Her lab work in the ER shows WBC 17.92, hemoglobin 13.1, platelet count 136, neutrophil count 16.72, sodium 134, potassium 6.3, chloride 93, BUN 37, creatinine 6.07, glucose 260, lactic acid 1.6, EGFR 7, magnesium 1.3, AST 50, ALT 48, troponin I 0.144, repeat troponin I 0.174, NT proBNP 92898. Vital signs on arrival shows temperature 98.2 F, pulse rate 64, respirate 18, blood pressure 164/63, oxygen saturation 94% on 2 L via nasal cannula. EKG shows ventricular rate of 61 bpm, NJ interval 169 ms, QRS duration of 100 ms, QTc of 462. Nonspecific ST-T wave changes noted. Tall T waves noted diffusely. Active: #Community-acquired pneumonia #Acute hypoxic respiratory failure secondary to above #Altered mental status secondary above Obtain blood culture, sputum Gram stain and culture, urine Legionella Patient received loading dose of IV levofloxacin 750 mg in ED Continue with IV levofloxacin 500 mg IVPB every 48 hour Continue with oxygen supplementation as needed Order as needed DuoNebs #ESRD on hemodialysis (Mondays, Wednesdays, Fridays) #Hyperkalemia #Hypomagnesemia #Volume overload Consult nephrology Hemodialysis session with a goal of 3.0 L output Continue with 2 g of oral Bumex daily Heart healthy diet Hyperkalemia was treated in the ER with IV insulin, 1 amp of sodium bicarb and 10 mg of Lokelma Repeat potassium in the evening Order CBC and CMP tomorrow a.m. Avoid nephrotoxic drugs Hold losartan #Elevated NT-proBNP #Elevated troponin I likely secondary to type II NSTEMI Order echocardiogram for cardiac structure assessment Consult cardiology Continue with Bumex 2 g once daily #Hypertension As needed IV hydralazine 10 mg every 6 hours when SBP more than 180 and DBP more than 110 Continue home losartan #Hyperglycemia Order HbA1c and sliding scale insulin Monitor for hypoglycemia #Transaminitis Continue to monitor Chronic: COPD/asthma: Resume currently under, Pulmicort GERD: Resume pantoprazole 40 mg once daily DVT prophylaxis: Subcu heparin GI prophylaxis: None F: None E: Replete as needed N: Heart healthy diet A: Ambulatory at baseline The patient is admitted with an anticipated more than than 2 midnight stay for evaluation of community-acquired pneumonia, ESRD on hemodialysis, altered mental status CODE STATUS: Full code Discussed with: Patient Anticipated discharge place: Pending clinical course Dictation was produced using [employer] dictation software. Please excuse any grammatical, word or spelling errors. Past Medical History Past Medical History: Coronary Artery Disease (CAD), CVA/TIA, Diabetes Mellitus, Dialysis, Eye Disorder, Hyperlipidemia, Hypertension, Osteoarthritis (OA), Renal Disease, Sleep Apnea/CPAP/BIPAP Additional Past Medical History / Comment(s): varicose veins (removed), stroke X3-left sided weakness, uses w/c & duane lift, hx TIA's, AROLDO-no CPAP, hiatal hernia, ESRD - hemodialysis M,W,F with fistula left upper extremity, prior peritoneal dialysis catheter removed, urinates frequent small amounts, hx bleeding ulcer. currently no meds for diabetes. no current wounds. History of Any Multi-Drug Resistant Organisms: None Reported Past Surgical History: Breast Surgery, Heart Catheterization, Orthopedic Surgery Additional Past Surgical History / Comment(s): Bilateral Carotid Endarterectomy, lumpectomy Rt breast, CTR bilateral wrists, pilonidal cyst removal, varicose vein removal, bilateral cataracts removed, Fistula left wrist surgery 2019; Fistula revision 05/30/20., peritoneal dialysis catheter and removal, fistulogram 06/27/24 Past Anesthesia/Blood Transfusion Reactions: Previous Problems w/ Anesthesia, Motion Sickness Additional Past Anesthesia/Blood Transfusion Reaction / Comment(s): Had trouble waking up after surgery. no problems with prior blood transfusion Past Psychological History: Anxiety, Depression Smoking Status: Former smoker Past Alcohol Use History: None Reported Past Drug Use History: None Reported - Past Family History Mother Family Medical History: Cancer Additional Family Medical History / Comment(s): breast cancer w/ mets Father Family Medical History: Cancer Additional Family Medical History / Comment(s): esophageal cancer Brother(s) Family Medical History: Cancer Additional Family Medical History / Comment(s): colon cancer, esophageal cancer Medications and Allergies Home Medications Medication Instructions Recorded Confirmed Type Aspirin EC [Ecotrin Low Dose] 81 mg PO DAILY@0500 07/16 07/10/24 History Albuterol Inhaler [Ventolin Hfa 2 puff INHALATION RT-Q6H PRN 10/29/22 07/10/24 History Inhaler] Atorvastatin [Lipitor] 20 mg PO HS 07/06/23 07/10/24 History Citalopram Hydrobromide [CeleXA] 20 mg PO HS 07/06/23 07/10/24 History carvediloL [Coreg] 12.5 mg PO BID 07/06/23 07/10/24 History Losartan [Cozaar] 50 mg PO HS 07/14/23 07/10/24 History Bumetanide [Bumex] 5 mg PO DAILY@0500 01/07/24 07/10/24 History Acetaminophen Tab [Tylenol] 650 mg PO Q6H PRN 06/14/24 07/10/24 History Budesonide 2 ml INHALATION RT-BID 06/14/24 07/10/24 History Folic Acid/Vit B Complex and C 1 tab PO DAILY@1700 06/14/24 07/10/24 History [Yina-Hanna Tablet] Ipratropium-Albuterol Nebulize 3 ml INHALATION RT-QID 06/14/24 07/10/24 History [Duoneb 0.5 mg-3 mg/3 ml Soln] Pantoprazole Sodium [Protonix] 40 mg PO DAILY@0500 06/14/24 07/10/24 History Amino Acids/Protein Hydrolys 30 ml PO DAILY 07/10/24 07/10/24 History [Pro-Stat Awc Liquid] Allergies Allergy/AdvReac Type Severity Reaction Status Date / Time cephalexin monohydrate Allergy Rash/Hives Verified 07/10/24 10:13 [From Keflex] Penicillins Allergy Rash/Hives Verified 07/10/24 10:13 captopril AdvReac Cough Verified 07/10/24 10:13 monohydrate Allergy Unknown Uncoded 07/10/24 02:33 Physical Exam Vitals: Vital Signs Temp Pulse Resp BP Pulse Ox 07/10/24 07:25 98.2 F 71 19 186/83 98 07/10/24 06:35 72 18 158/69 93 L 07/10/24 04:50 82 18 178/94 93 L 07/10/24 03:35 67 18 174/69 98 07/10/24 02:29 98.2 F 64 18 164/63 94 L Intake and Output 07/09/24 07/10/24 07/10/24 22:59 06:59 14:59 Other: Weight 88.451 kg Results CBC & Chem 7: 07/10/24 02:52 07/10/24 15:53 Labs: Abnormal Lab Results - Last 24 Hours (Table) 07/10/24 07/10/24 07/10/24 Range/Units 02:31 02:52 02:52 WBC 17.92 H (4.50-10.00) 10*3/uL Plt Count 136 L (140-440) 10*3/uL Immature Gran # 0.20 H (0.00-0.04) 10*3/uL Neutrophils # 16.72 H (1.80-7.70) 10*3/uL Lymphocytes # 0.32 L (0.90-5.00) 10*3/uL Eosinophils # 0.00 L (0.04-0.35) 10*3/uL APTT 19.5 L (22.0-30.0) sec Sodium (137-145) mmol/L Potassium (3.5-5.1) mmol/L Chloride (98-107) mmol/L BUN (7-17) mg/dL Creatinine (0.52-1.04) mg/dL Glucose (74-99) mg/dL POC Glucose (mg/dL) 263 H (70-110) mg/dL Magnesium (1.6-2.3) mg/dL AST (14-36) U/L ALT (4-34) U/L Troponin I (0.000-0.034) ng/mL 07/10/24 07/10/24 07/10/24 Range/Units 02:52 02:52 06:43 WBC (4.50-10.00) 10*3/uL Plt Count (140-440) 10*3/uL Immature Gran # (0.00-0.04) 10*3/uL Neutrophils # (1.80-7.70) 10*3/uL Lymphocytes # (0.90-5.00) 10*3/uL Eosinophils # (0.04-0.35) 10*3/uL APTT (22.0-30.0) sec Sodium 134 L (137-145) mmol/L Potassium 6.3 H* (3.5-5.1) mmol/L Chloride 93 L (98-107) mmol/L BUN 77 H (7-17) mg/dL Creatinine 6.07 H (0.52-1.04) mg/dL Glucose 260 H (74-99) mg/dL POC Glucose (mg/dL) (70-110) mg/dL Magnesium 1.3 L (1.6-2.3) mg/dL AST 50 H (14-36) U/L ALT 48 H (4-34) U/L Troponin I 0.144 H* 0.174 H* (0.000-0.034) ng/mL
[2024-07-10] MEDS ORDERED: DEXTROSE 50% SYRINGE 50 ML IVP PRN ×2 (13:58)
[2024-07-10] MEDS: IPRATROPIUM-ALBUTEROL 3 ML NEB INHALATION SCH (14:42)
[2024-07-10] MEDS: SODIUM ZIRCONIUM CYCLOSILICATE 10 GM PACKET PO SCH (16:01)
[2024-07-10] MEDS: FOLIC ACID-VIT B COMPLEX-VIT C 1 CAP PO SCH (16:56)
[2024-07-10] MEDS: INSULIN LISPRO (HumaLOG) 100 UNIT/ML 10 mL VL SQ SCH (17:06)
[2024-07-10 17:07] LABS: Glucose,Whole Blood 127 mg/dL (70-110)
[2024-07-10] MEDS: BUDESONIDE 0.5 MG/2 ML NEBU INHALATION SCH (20:20)
[2024-07-10] MEDS ORDERED: LOSARTAN 50 MG TAB PO SCH (21:00)
[2024-07-10 22:04] LABS: Glucose,Whole Blood 155 mg/dL (70-110)
[2024-07-10] MEDS: ATORVASTATIN 20 MG TAB PO SCH (22:10)
[2024-07-10] MEDS: CITALOPRAM HYDROBROMIDE 20 MG TAB PO SCH (22:10)
[2024-07-10] MEDS: HEPARIN SODIUM,PORCINE 5,000 UNIT/ML 1 ML VIAL SQ SCH (22:10)
[2024-07-11] MEDS: hydrALAZINE HCL 20 MG/ML 1 ML VIAL IVP PRN (02:46)
[2024-07-11 04:12] LABS: ALT 39 U/L (4-34); AST 29 U/L (14-36); African American GFR (CKD) 11 (>60 ml/min/1.73 sqM); Albumin 3.5 g/dL (3.5-5.0); Albumin/Globulin Ratio 1.3; Alkaline Phosphatase 101 U/L (38-126); Anion Gap 15 mmol/L; Basophils # (A) 0.04 10*3/uL (0.00-0.10); Basophils % (A) 0.4 %; Blood Urea Nitrogen 51 mg/dL (7-17); Calcium 9.6 mg/dL (8.4-10.2); Carbon Dioxide 24 mmol/L (22-30); Chloride 89 mmol/L (98-107); Eosinophils # (A) 0.14 10*3/uL (0.04-0.35); Eosinophils % (A) 1.4 %; Globulin 2.7 g/dL; Glucose 98 mg/dL (74-99); HCT 33.1 % (37.2-46.3); HGB 10.9 g/dL (12.0-15.0); Lymphocytes # (A) 0.59 10*3/uL (0.90-5.00); Lymphocytes % (A) 5.7 %; MCH 29.9 pg (27.0-32.0); MCHC 32.9 g/dL (32.0-37.0); MCV 90.9 fL (80.0-97.0); Magnesium 1.3 mg/dL (1.6-2.3); Mean Platelet Volume 10.8 fL (9.5-12.2); Monocytes # (A) 0.89 10*3/uL (0.20-1.00); Monocytes % (A) 8.6 %; Neutrophils # (A) 8.59 10*3/uL (1.80-7.70); Neutrophils % (A) 83.4 %; Non-African American GFR(CKD) 9 (>60 ml/min/1.73 sqM); Platelet Count 161 10*3/uL (140-440); Potassium 4.6 mmol/L (3.5-5.1); RBC 3.64 10*6/uL (4.10-5.20); RDW 16.4 % (11.5-14.5); Sodium 128 mmol/L (137-145); Total Bilirubin 0.6 mg/dL (0.2-1.3); Total Protein 6.2 g/dL (6.3-8.2)
[2024-07-11] MEDS: PANTOPRAZOLE 40 MG TABLET PO SCH (05:03)
[2024-07-11] MEDS: ASPIRIN 81 MG PO SCH (05:03)
[2024-07-11 06:12] LABS: Glucose,Whole Blood 95 mg/dL (70-110)
[2024-07-11] MEDS ORDERED: VANCOMYCIN 1,500 MG in SODIUM CHLORIDE 0.9% 500 ML 500 ML IVPB ONE (07:00)
--- NOTE | 2024-07-11 07:31 | XR ---
EXAMINATION TYPE: XR chest 1V portable DATE OF EXAM: 07/11/2024 6:48 AM COMPARISON: 07/10/2024 CLINICAL INDICATION: Female, 69 years old with history of pneumonia, , FINDINGS: Heart upper limits of normal in size. Diffuse interstitial densities similar to improved. No miki co nsolidation or pleural effusion. There is degenerative change left glenohumeral joint. IMPRESSION: Bilateral interstitial infiltrates/opacities are similar to slightly improved. [facility], Workstation: [facility], 07/11/2024 7:28 AM
--- NOTE | 2024-07-11 08:13 | CA ---
Transthoracic Echo Report Name: Ashlie Pop Age: 69 Gender: F : 1955 Exam Date: 07/10/2024 13:48 Exam Location: [facility] Ht (in): 68 Wt (lb): 195 Ordering Physician: Abigail Su Attending/Referring Phys: [id number], Georges Coke Crane Operator Ezio Adler RDCS Procedure CPT: Indications: hx MS Cardiac Hx: CAD, CVA, HTN Technical Quality: Fair Contrast 1: Definity Total Dose (mL): 2 Contrast 2: Total Dose (mL): MEASUREMENTS (Male / Female) Normal Values 2D ECHO LV Diastolic Diameter PLAX 4.6 cm 4.2 - 5.9 / 3.9 - 5.3 cm LV Systolic Diameter PLAX 3.1 cm IVS Diastolic Thickness 1.3 cm 0.6 - 1.0 / 0.6 - 0.9 cm LVPW Diastolic Thickness 1.2 cm 0.6 - 1.0 / 0.6 - 0.9 cm LV Relative Wall Thickness 0.6 RV Internal Dim ED PLAX 4.1 cm LVOT Diameter 2.1 cm Aortic Root Diameter 2.6 cm LA Systolic Diameter LX 4.4 cm 3.0 - 4.0 / 2.7 - 3.8 cm LV Diastolic Volume MOD BP 110.8 cm??? 67 - 155 / 56 - 104 cm??? LV Systolic Volume MOD BP 33.2 cm??? 22 - 58 / 19 - 49 cm??? LV Ejection Fraction MOD BP 70.0 % >= 55 % LV Diastolic Volume MOD 4C 129.8 cm??? LV Systolic Volume MOD 4C 39.3 cm??? LV Ejection Fraction MOD 4C 69.7 % LV Diastolic Length 4C 8.1 cm LV Systolic Length 4C 7.6 cm LV Diastolic Volume MOD 2C 88.2 cm??? LV Systolic Volume MOD 2C 27.7 cm??? LV Ejection Fraction MOD 2C 68.6 % LV Diastolic Length 2C 8.7 cm LV Systolic Length 2C 7.5 cm DOPPLER AV Peak Velocity 228.9 cm/s AV Peak Gradient 21.0 mmHg AV Mean Velocity 157.9 cm/s AV Mean Gradient 10.8 mmHg AV Velocity Time Integral 45.2 cm MV Peak Velocity 151.3 cm/s MV Peak Gradient 9.2 mmHg MV Mean Velocity 102.6 cm/s MV Mean Gradient 4.6 mmHg MV Velocity Time Integral 49.7 cm MV Area PHT 1.6 cm??? Mitral E Point Velocity 117.4 cm/s Mitral A Point Velocity 126.1 cm/s Mitral E to A Ratio 0.9 MV Deceleration Time 366.4 ms MV E' Velocity 4.2 cm/s Mitral E to MV E' Ratio 27.8 TR Peak Velocity 260.4 cm/s TR Peak Gradient 27.1 mmHg FINDINGS Left Ventricle Left ventricular ejection fraction is estimated at 60-65 %. Moderately increased septal wall thickness. Mildly increased posterior wall thickness. Normal left ventricular systolic function with no obvious regional wall motion abnormalities. Right Ventricle Normal right ventricular size and function. Right ventricular systolic pressure within normal limits. Right Atrium Mild right atrial dilatation. Left Atrium Moderately increased left atrial diameter. Mitral Valve Mitral annular calcification. Mitral valve thickened. [id number] mitral stenosis. Trace mitral regurgitation. Aortic Valve Trileaflet aortic valve. Aortic valve sclerosis. Thickened aortic valve with mild stenosis. No aortic regurgitation. Tricuspid Valve Structurally normal tricuspid valve. No tricuspid stenosis. Trace tricuspid regurgitation. Pulmonic Valve Pulmonic valve not well visualized. No pulmonic stenosis. Trace pulmonic regurgitation. Pericardium No pericardial effusion. Aorta Normal size aortic root and proximal ascending aorta. CONCLUSIONS Normal LV size and systolic function. Aortic valve sclerosis with mild gradient, nonspecific thickening of mitral valve leaflets with mitral annular calcification mild mitral and tricuspid regurgitation. No significant pulmonary hypertension. No pericardial effusion Previewed by: Dr. Michelle Corley MD (Electronically Signed) Final Date: 11 Jul 2024 08:12
[2024-07-11] MEDS ORDERED: ASPIRIN 81 MG PO SCH (09:00)
[2024-07-11] MEDS ORDERED: NON FORMULARY DRUG (Amino Acids/Protein Hydrolys [Pro-Stat Awc Liquid] 887 ML Liquid) PO SCH (09:00)
[2024-07-11] MEDS: amLODIPine 10 MG TAB PO SCH (10:15)
[2024-07-11] MEDS: BUMETANIDE 1 MG TAB PO SCH (10:16)
--- NOTE | 2024-07-11 10:28 | P.PN ---
Subjective HISTORY OF PRESENT ILLNESS: This is a 69-year-old female patient of Dr. Mancuso with past medical history of hypertension, hyperlipidemia, carotid artery stenosis status post bilateral carotid endarterectomy, prior stroke, end-stage renal disease on hemodialysis, relatively normal heart catheterization performed at [facility] 5 years ago. We have been asked to evaluate the patient for elevated troponin. Patient states that she is feeling better now. She states that she came into the hospital because her stomach was hurting. She denies chest pain. She states she chronically has shortness of breath and is on home oxygen. According to the ER documentation, patient came in due to altered mental status and hypertension. Blood pressure 168/66, heart rate 66, pulse ox 97% on 2 L nasal cannula. Patient has been started on IV antibiotics. -EKG: Sinus rhythm with no acute ST changes -Chest x-ray: Left pleural effusion with adjacent atelectasis and/or pneumonia not excluded. -Laboratory studies: WBC 17.9, hemoglobin 13.1, potassium 6.3, BUN 77 creatinine 6.07, sodium 134. Troponin 0.144 and 0. 174. proBNP 26,100. -Home cardiac medications: Aspirin 81 mg daily, atorvastatin 20 mg at bedtime, Bumex 5 mg daily, Coreg 12.5 mg twice daily, losartan 50 mg at bedtime. -Echocardiogram performed at [facility] on 07/07/2023 revealed technically difficult study, normal LV systolic function. Mild mitral stenosis and mild mitral re gurgitation. Aortic sclerosis with mild aortic stenosis. Severe pulmonary hypertension. -Lexiscan Cardiolite stress test performed in the office in 09/2021 revealed normal Lexiscan stress test without inducible ischemia. Normal myocardial perfusion. EF 55%. 07/11/2024 Patient examined this morning at the bedside. Patient currently denies chest pain or pressure. Denies shortness of breath. Patient underwent hemodialysis yesterday. Echocardiogram completed revealing ejection fraction 60 to 65%, no obvious regional wall motion abnormalities, mild to moderate mitral stenosis, trace mitral regurgitation, trace tricuspid regurgitation. Blood pressure is elevated with a systolic between [id number]. PHYSICAL EXAM: VITAL SIGNS: Reviewed. GENERAL: Well-developed in no acute distress. NECK: Supple. No JVD or thyromegaly LUNGS: Respirations even and unlabored. Lungs essentially clear to auscultation bilaterally. HEART: Regular rate and rhythm. S1 and S2 heard. EXTREMITIES: Normal range of motion. No clubbing or cyanosis. Peripheral pulses intact. No lower extremity edema ASSESSMENT: Metabolic encephalopathy Elevated troponin secondary to poor renal clearance and infection, no evidence of myocardial injury or ischemia Leukocytosis Hyperkalemia Hypertension Hyperlipidemia Carotid artery stenosis status post bilateral carotid endarterectomy History of CVA End-stage renal disease on hemodialysis Chronic hypoxic respiratory failure on home O2 PLAN: Add amlodipine 5 mg twice daily for optimal blood pressure control Continue additional cardiac medications Patient is stable from a cardiac perspective with no further inpatient recommendations We will sign off. Please reconsult if needed. Nurse practitioner note has been reviewed by physician. Signing provider agrees with the documented findings, assessment, and plan of care documented by [employer] as a scribe. Objective - Vital Signs Vital signs: Vital Signs Temp 98.6 F 07/11/24 07:00 Pulse 74 07/11/24 07:00 Resp 18 07/11/24 07:00 BP 187/76 07/11/24 07:00 Pulse Ox 98 07/11/24 07:00 FiO2 Intake & Output 07/10/24 07/11/24 07/11/24 18:59 06:59 18:59 Intake Total 400 Output Total 7400 Balance -7000 Weight 93 kg Intake: Hemodialysis 400 Output: Hemodialysis 3900 Hemodialysis Net Amount 3500 Other: Voiding Method External Catheter External Catheter - Labs CBC & Chem 7: 07/11/24 02:31 07/11/24 02:31 Labs: Abnormal Lab Results - Last 24 Hours (Table) 07/10/24 07/10/24 07/10/24 Range/Units 11:55 17:05 22:02 WBC (4.50-10.00) 10*3/uL RBC (4.10-5.20) 10*6/uL Hgb (12.0-15.0) g/dL Hct (37.2-46.3) % RDW (11.5-14.5) % Immature Gran # (0.00-0.04) 10*3/uL Neutrophils # (1.80-7.70) 10*3/uL Lymphocytes # (0.90-5.00) 10*3/uL APTT 21.5 L (22.0-30.0) sec Sodium (137-145) mmol/L Chloride (98-107) mmol/L BUN (7-17) mg/dL Creatinine (0.52-1.04) mg/dL POC Glucose (mg/dL) 127 H 155 H (70-110) mg/dL Magnesium (1.6-2.3) mg/dL ALT (4-34) U/L Total Protein (6.3-8.2) g/dL 07/11/24 07/11/24 Range/Units 02:31 02:31 WBC 10.30 H (4.50-10.00) 10*3/uL RBC 3.64 L (4.10-5.20) 10*6/uL Hgb 10.9 L (12.0-15.0) g/dL Hct 33.1 L (37.2-46.3) % RDW 16.4 H (11.5-14.5) % Immature Gran # 0.05 H (0.00-0.04) 10*3/uL Neutrophils # 8.59 H (1.80-7.70) 10*3/uL Lymphocytes # 0.59 L (0.90-5.00) 10*3/uL APTT (22.0-30.0) sec Sodium 128 L (137-145) mmol/L Chloride 89 L (98-107) mmol/L BUN 51 H (7-17) mg/dL Creatinine 4.50 H (0.52-1.04) mg/dL POC Glucose (mg/dL) (70-110) mg/dL Magnesium 1.3 L (1.6-2.3) mg/dL ALT 39 H (4-34) U/L Total Protein 6.2 L (6.3-8.2) g/dL Microbiology - Last 24 Hours (Table) 07/10/24 05:41 Nasal Screen MRSA/MSSA - Final Nasal Swab
--- NOTE | 2024-07-11 10:44 | P.PN ---
Subjective Patient is seen in follow-up for end-stage renal disease. Tolerated 3.5 L ultrafiltration yesterday. Denies chest pain or shortness of breath. Vital signs are stable. General: No acute distress. HEENT: Head exam is unremarkable. On nasal cannula. LUNGS: No audible rhonchi or wheezes. HEART: Rate and Rhythm are regular. ABDOMEN: Non-tender. Distention noted. EXTREMITITES: 1+ edema. Objective - Vital Signs Vital signs: Vital Signs Temp 98.6 F 07/11/24 07:00 Pulse 74 07/11/24 07:00 Resp 18 07/11/24 07:00 BP 187/76 07/11/24 07:00 Pulse Ox 98 07/11/24 07:00 FiO2 Intake & Output 07/10/24 07/11/24 07/11/24 18:59 06:59 18:59 Intake Total 400 Output Total 7400 Balance -7000 Weight 93 kg Intake: Hemodialysis 400 Output: Hemodialysis 3900 Hemodialysis Net Amount 3500 Other: Voiding Method External Catheter External Catheter - Labs CBC & Chem 7: 07/11/24 02:31 07/11/24 02:31 Labs: Abnormal Lab Results - Last 24 Hours (Table) 07/10/24 07/10/24 07/10/24 Range/Units 11:55 17:05 22:02 WBC (4.50-10.00) 10*3/uL RBC (4.10-5.20) 10*6/uL Hgb (12.0-15.0) g/dL Hct (37.2-46.3) % RDW (11.5-14.5) % Immature Gran # (0.00-0.04) 10*3/uL Neutrophils # (1.80-7.70) 10*3/uL Lymphocytes # (0.90-5.00) 10*3/uL APTT 21.5 L (22.0-30.0) sec Sodium (137-145) mmol/L Chloride (98-107) mmol/L BUN (7-17) mg/dL Creatinine (0.52-1.04) mg/dL POC Glucose (mg/dL) 127 H 155 H (70-110) mg/dL Magnesium (1.6-2.3) mg/dL ALT (4-34) U/L Total Protein (6.3-8.2) g/dL 07/11/24 07/11/24 Range/Units 02:31 02:31 WBC 10.30 H (4.50-10.00) 10*3/uL RBC 3.64 L (4.10-5.20) 10*6/uL Hgb 10.9 L (12.0-15.0) g/dL Hct 33.1 L (37.2-46.3) % RDW 16.4 H (11.5-14.5) % Immature Gran # 0.05 H (0.00-0.04) 10*3/uL Neutrophils # 8.59 H (1.80-7.70) 10*3/uL Lymphocytes # 0.59 L (0.90-5.00) 10*3/uL APTT (22.0-30.0) sec Sodium 128 L (137-145) mmol/L Chloride 89 L (98-107) mmol/L BUN 51 H (7-17) mg/dL Creatinine 4.50 H (0.52-1.04) mg/dL POC Glucose (mg/dL) (70-110) mg/dL Magnesium 1.3 L (1.6-2.3) mg/dL ALT 39 H (4-34) U/L Total Protein 6.2 L (6.3-8.2) g/dL Microbiology - Last 24 Hours (Table) 07/10/24 05:41 Nasal Screen MRSA/MSSA - Final Nasal Swab Assessment and Plan Plan: Assessment: 1. End-stage renal disease maintained on hemodialysis on Wednesday schedule. 2. Hyperkalemia secondary to chronic kidney disease. Losartan noted on home medication list. 3. Volume overload. Better with ultrafiltration. 4. Diabetes mellitus. 5. Hypertension with chronic kidney disease. 6. Chronic kidney disease mineral bone disease. 7. Mild to moderate mitral stenosis noted on echocardiogram. Preserved EF. Plan: Extra hemodialysis treatment today. Another treatment tomorrow per her outpatient schedule. Replace magnesium. Maintain Bumex. Add scheduled hydralazine. Continue to hold losartan.
[2024-07-11 11:38] LABS: Glucose,Whole Blood 192 mg/dL (70-110)
[2024-07-11] MEDS: MAGNESIUM SULFATE-D5W PMX 1 GM in DEXTROSE/WATER 1 100ML.BAG IVPB SCH (12:43)
[2024-07-11] MEDS: hydrALAZINE HCL 50 MG TAB PO SCH (12:57)
--- NOTE | 2024-07-11 15:43 | P.PN ---
Subjective Progress Note Date: 07/11/24 Hospital Course: Patient is a 69-year-old female with a history of multiple comorbidities including ESRD on hemodialysis on Mondays, Wednesdays and Fridays was brought to the ER via EMS from [facility] with complaints of altered mental status and hypertension since yesterday. Chest x-ray done in the ER shows concern for left-sided pleural effusion with pneumonia. Patient was started on IV levofloxacin. Patient reports that she has been feeling mild shortness of breath but no cough. Patient denies any sick contacts. Patient denies chest pain, fever, chills, nausea, vomiting but admits to being generally weak and fatigued. Her lab work in the ER shows WBC 17.92, hemoglobin 13.1, platelet count 136, neutrophil count 16.72, sodium 134, potassium 6.3, chloride 93, BUN 37, creatinine 6.07, glucose 260, lactic acid 1.6, EGFR 7, magnesium 1.3, AST 50, ALT 48, troponin I 0.144, repeat troponin I 0.174, NT proBNP 70288. Vital signs on arrival shows temperature 98.2 F, pulse rate 64, respirate 18, blood pressure 164/63, oxygen saturation 94% on 2 L via nasal cannula. EKG shows ventricular rate of 61 bpm, MN interval 169 ms, QRS duration of 100 ms, QTc of 462. Nonspecific ST-T wave changes noted. Tall T waves noted diffusely. Of note, patient states that she is not oxygen dependent Subjective: Patient seen and examined at the bedside. No acute events overnight. Patient received hemodialysis with output of 3.5 L. Patient did undergo another session of hemodialysis today. Patient denies chest pain, shortness of breath, headaches, dizziness, nausea, vomiting, numbness or tingling upper or lower extremities. All Systems reviewed and pertinent positives and negatives noted in HPI, all other symptoms are negative Objective: Physical examination: Vital signs reviewed General: non toxic, no distress, appears at stated age, overweight Derm: no unusual rashes/lesions, warm, AV fistula on the left arm functioning well Head: atraumatic, normocephalic, symmetric Eyes: EOMI, no lid lag, anicteric sclera, pupils equal round reactive to light ENT: Nose and ears atraumatic Neck: No cervical lymphadenopathy, trachea midline, supple Mouth: no lip lesion, mucus membranes moist Cardiovascular: S1S2 reg, no murmur, positive dorsalis pedis pulse bilateral, 2+ pitting edema Lungs: bilateral expiratory wheezing noted, no rhonchi, no rales, no accessory muscle use Abdominal: soft, nontender to palpation, no guarding Ext: muscle strength 5 out of 5 in all 4 extremities grossly, no gross muscle atrophy, no contractures, Neuro: CN II-XI grossly intact, no gross focal neuro deficits Psych: Alert, oriented, appropriate affect Data reviewed today: Labs: WBC 10.3, hemoglobin 10.9, sodium 128, potassium 4.6, chloride 89, BUN 51, creatinine 4.5, hemoglobin A1c 4.6, magnesium 1.3, calcium 9.6, AST 29, ALT 39, ALP 101, Images: No new imaging Assessment and Plan: #Community-acquired pneumonia #Chronic hypoxic respiratory failure on 2 L oxygen at home #Altered mental status, improved Pending blood culture, sputum Gram stain and culture, urine Legionella Continue with IV levofloxacin 500 mg IVPB every 48 hour (antibiotic was started on 07/10/2024) Continue with oxygen supplementation as needed Continue with DuoNebs as needed, add scheduled DuoNebs #ESRD on hemodialysis (Mondays, Wednesdays, Fridays) #Hyperkalemia, resolved #Hypomagnesemia #Volume overload Nephrology on board, reviewed Extra hemodialysis session today and tomorrow as per schedule Continue with 2 g of oral Bumex daily and add scheduled hydralazine 50 mg p.o. 3 times daily Heart healthy diet Order CBC and CMP tomorrow a.m. Avoid nephrotoxic drugs Hold losartan #Elevated NT-proBNP #Elevated troponin I likely secondary to type II NSTEMI Echocardiogram revealed ejection fraction of 60 to 65% with no regional wall abnormalities. Cardiology on board, note reviewed, amlodipine 5 mg twice daily added for optimal pressure control Continue with Bumex 2 g once daily #Hypertension As needed IV hydralazine 10 mg every 6 hours when SBP more than 180 and DBP more than 110 Add scheduled p.o. hydralazine 50 mg 3 times daily Continue to hold losartan #Hyperglycemia Order HbA1c and sliding scale insulin Monitor for hypoglycemia #Transaminitis Continue to monitor Chronic: COPD/asthma: Resume currently under, Pulmicort GERD: Resume pantoprazole 40 mg once daily DVT prophylaxis: Subcu heparin GI prophylaxis: None F: None E: Replete as needed N: Heart healthy diet A: Ambulatory at baseline The patient is admitted with an anticipated more than than 2 midnight stay for evaluation of community-acquired pneumonia, ESRD on hemodialysis, altered mental status CODE STATUS: Full code Discussed with: Patient Anticipated discharge place: Pending clinical course Dictation was produced using [employer] dictation software. Please excuse any grammatical, word or spelling errors. Objective - Vital Signs Vital signs: Vital Signs Temp 98.5 F 07/11/24 15:12 Pulse 80 07/11/24 15:12 Resp 18 07/11/24 15:12 BP 139/67 07/11/24 15:12 Pulse Ox 97 07/11/24 15:12 FiO2 Intake & Output 07/10/24 07/11/24 07/11/24 18:59 06:59 18:59 Intake Total 400 Output Total 7400 Balance -7000 Weight 93 kg 93 kg Intake: Hemodialysis 400 Output: Hemodialysis 3900 Hemodialysis Net Amount 3500 Other: Voiding Method External Catheter External Catheter # Bowel Movements 1 - Labs CBC & Chem 7: 07/11/24 02:31 07/11/24 02:31 Labs: Abnormal Lab Results - Last 24 Hours (Table) 07/10/24 07/10/24 07/11/24 Range/Units 17:05 22:02 02:31 WBC 10.30 H (4.50-10.00) 10*3/uL RBC 3.64 L (4.10-5.20) 10*6/uL Hgb 10.9 L (12.0-15.0) g/dL Hct 33.1 L (37.2-46.3) % RDW 16.4 H (11.5-14.5) % Immature Gran # 0.05 H (0.00-0.04) 10*3/uL Neutrophils # 8.59 H (1.80-7.70) 10*3/uL Lymphocytes # 0.59 L (0.90-5.00) 10*3/uL Sodium (137-145) mmol/L Chloride (98-107) mmol/L BUN (7-17) mg/dL Creatinine (0.52-1.04) mg/dL POC Glucose (mg/dL) 127 H 155 H (70-110) mg/dL Magnesium (1.6-2.3) mg/dL ALT (4-34) U/L Total Protein (6.3-8.2) g/dL 07/11/24 07/11/24 Range/Units 02:31 11:36 WBC (4.50-10.00) 10*3/uL RBC (4.10-5.20) 10*6/uL Hgb (12.0-15.0) g/dL Hct (37.2-46.3) % RDW (11.5-14.5) % Immature Gran # (0.00-0.04) 10*3/uL Neutrophils # (1.80-7.70) 10*3/uL Lymphocytes # (0.90-5.00) 10*3/uL Sodium 128 L (137-145) mmol/L Chloride 89 L (98-107) mmol/L BUN 51 H (7-17) mg/dL Creatinine 4.50 H (0.52-1.04) mg/dL POC Glucose (mg/dL) 192 H (70-110) mg/dL Magnesium 1.3 L (1.6-2.3) mg/dL ALT 39 H (4-34) U/L Total Protein 6.2 L (6.3-8.2) g/dL Microbiology - Last 24 Hours (Table) 07/10/24 04:29 Blood Culture - Preliminary Blood 07/10/24 05:41 Nasal Screen MRSA/MSSA - Final Nasal Swab
[2024-07-11 17:19] LABS: Glucose,Whole Blood 145 mg/dL (70-110)
[2024-07-11 18:59] LABS: Basophils # (A) 0.02 10*3/uL (0.00-0.10); Basophils % (A) 0.2 %; Eosinophils # (A) 0.09 10*3/uL (0.04-0.35); HCT 33.2 % (37.2-46.3); HGB 10.7 g/dL (12.0-15.0); Lymphocytes # (A) 0.36 10*3/uL (0.90-5.00); Lymphocytes % (A) 4.1 %; MCH 29.4 pg (27.0-32.0); MCHC 32.2 g/dL (32.0-37.0); MCV 91.2 fL (80.0-97.0); Mean Platelet Volume 9.4 fL (9.5-12.2); Monocytes # (A) 0.77 10*3/uL (0.20-1.00); Monocytes % (A) 8.8 %; Neutrophils # (A) 7.45 10*3/uL (1.80-7.70); Neutrophils % (A) 85.3 %; Platelet Count 160 10*3/uL (140-440); RBC 3.64 10*6/uL (4.10-5.20); RDW 16.4 % (11.5-14.5); WBC 8.74 10*3/uL (4.50-10.00)
[2024-07-11 19:06] LABS: INR 0.9 (<1.2); Prothrombin Time 10.2 sec (10.0-12.5)
[2024-07-11 20:34] LABS: Glucose,Whole Blood 204 mg/dL (70-110)
[2024-07-11] MEDS: DILTIAZEM 5 MG/ML 5 ML VIAL IVP STA (20:46)
[2024-07-11] MEDS: HEPARIN SODIUM 1,000 UN/ML (10ML VL) IV ONE (20:47)
[2024-07-11] MEDS: HEPARIN SOD,PORK IN 0.45% NACL 25,000 UNIT in 0.45% NACL 1 250ML.BAG IV SCH (20:48)
[2024-07-11] MEDS: DILTIAZEM 125 MG in DEXTROSE 5% IN WATER 100 ML IV SCH (20:57)
[2024-07-12] MEDS: HEPARIN SODIUM 1,000 UN/ML (10ML VL) IV PRN (01:39)
[2024-07-12] MEDS: ACETAMINOPHEN TAB 325 MG TAB PO PRN (02:06)
[2024-07-12 05:43] LABS: Glucose,Whole Blood 160 mg/dL (70-110)
[2024-07-12 05:57] LABS: Glucose,Whole Blood 162 mg/dL (70-110)
[2024-07-12 08:06] LABS: Basophils # (A) 0.03 10*3/uL (0.00-0.10); Basophils % (A) 0.5 %; Eosinophils % (A) 1.6 %; HCT 32.5 % (37.2-46.3); HGB 10.3 g/dL (12.0-15.0); Lymphocytes # (A) 0.49 10*3/uL (0.90-5.00); Lymphocytes % (A) 7.8 %; MCH 29.1 pg (27.0-32.0); MCHC 31.7 g/dL (32.0-37.0); MCV 91.8 fL (80.0-97.0); Mean Platelet Volume 9.8 fL (9.5-12.2); Monocytes # (A) 0.65 10*3/uL (0.20-1.00); Monocytes % (A) 10.4 %; Neutrophils # (A) 4.95 10*3/uL (1.80-7.70); Neutrophils % (A) 79.1 %; Platelet Count 167 10*3/uL (140-440); RBC 3.54 10*6/uL (4.10-5.20); RDW 16.6 % (11.5-14.5); WBC 6.26 10*3/uL (4.50-10.00)
[2024-07-12 08:13] LABS: African American GFR (CKD) 11 (>60 ml/min/1.73 sqM); Anion Gap 14 mmol/L; Blood Urea Nitrogen 44 mg/dL (7-17); Calcium 8.9 mg/dL (8.4-10.2); Carbon Dioxide 27 mmol/L (22-30); Chloride 89 mmol/L (98-107); Glucose 138 mg/dL (74-99); Magnesium 1.7 mg/dL (1.6-2.3); Non-African American GFR(CKD) 9 (>60 ml/min/1.73 sqM); Potassium 3.7 mmol/L (3.5-5.1); Sodium 130 mmol/L (137-145)
[2024-07-12 08:19] LABS: INR 0.9 (<1.2); Prothrombin Time 10.2 sec (10.0-12.5)
[2024-07-12] MEDS: LEVOFLOXACIN IVPB SCH (09:15)
[2024-07-12] MEDS: PMX IVPB SCH (09:15)
[2024-07-12] MEDS: WATER IVPB SCH (09:15)
[2024-07-12] MEDS: DEXTROSE IVPB SCH (09:15)
--- NOTE | 2024-07-12 09:41 | XR ---
EXAMINATION TYPE: XR chest 1V portable DATE OF EXAM: 07/12/2024 CLINICAL INDICATION: Female, 69 years old with history of SOB, progress study. TECHNIQUE: Single AP portable upright view of the chest is obtained. COMPARISON: Chest x-ray from one day earlier FINDINGS: Persistent mild cardiomegaly and reticular increased markings bilaterally. No new focal ai rspace opacity, pleural effusion, or pneumothorax seen. Osseous structures remain demineralized. IMPRESSION: Mild cardiomegaly with mild bilateral interstitial edema remains present. No significant change from one day earlier. Related for CHF exacerbation/fluid overload state. [facility], , 07/12/2024 9:39 AM
--- NOTE | 2024-07-12 09:45 | P.PN ---
Subjective Patient is seen in follow-up for end-stage renal disease. Tolerated 2.5 L ultrafiltration yesterday. Denies chest pain or shortness of breath. Vital signs are stable. General: No acute distress. HEENT: Head exam is unremarkable. On nasal cannula. LUNGS: Scattered rhonchi. HEART: Rate and Rhythm are regular. ABDOMEN: Non-tender. Distention noted. EXTREMITITES: 1+ edema. Objective - Vital Signs Vital signs: Vital Signs Temp 99.1 F 07/12/24 07:38 Pulse 78 07/12/24 08:28 Resp 24 07/12/24 08:00 BP 138/66 07/12/24 07:38 Pulse Ox 96 07/12/24 07:38 FiO2 Intake & Output 07/11/24 07/12/24 07/12/24 18:59 06:59 18:59 Intake Total 700 412.000 240 Output Total 5500 0 Balance -4800 412.000 240 Weight 93 kg 93 kg Intake: Intake, IV Titration 172.000 Amount Diltiazem 125 mg In 124.167 Dextrose 5% in Water 100 ml @ 10 MG/HR 10 mls/hr IV .[id number] RANDI Rx#: [id number] Heparin Sod,Pork in 0.45% 47.833 NaCl 25,000 unit In 0.45 % NaCl 1 250ml.bag @ 10. 753 UNITS/KG/HR 10 mls/hr IV .Q24H RANDI Rx#: [id number] Oral 200 240 240 Hemodialysis 500 Output: Urine 0 Hemodialysis 3000 Hemodialysis Net Amount 2500 Other: Voiding Method External Catheter External Catheter External Catheter # Voids 0 # Bowel Movements 1 - Labs CBC & Chem 7: 07/12/24 06:54 07/12/24 06:54 Labs: Abnormal Lab Results - Last 24 Hours (Table) 07/11/24 07/11/24 07/11/24 Range/Units 11:36 17:18 18:45 RBC 3.64 L (4.10-5.20) 10*6/uL Hgb 10.7 L (12.0-15.0) g/dL Hct 33.2 L (37.2-46.3) % MCHC (32.0-37.0) g/dL RDW 16.4 H (11.5-14.5) % MPV 9.4 L (9.5-12.2) fL Immature Gran # 0.05 H (0.00-0.04) 10*3/uL Lymphocytes # 0.36 L (0.90-5.00) 10*3/uL APTT (22.0-30.0) sec Sodium (137-145) mmol/L Chloride (98-107) mmol/L BUN (7-17) mg/dL Creatinine (0.52-1.04) mg/dL Glucose (74-99) mg/dL POC Glucose (mg/dL) 192 H 145 H (70-110) mg/dL 07/11/24 07/12/24 07/12/24 Range/Units 20:31 00:17 05:42 RBC (4.10-5.20) 10*6/uL Hgb (12.0-15.0) g/dL Hct (37.2-46.3) % MCHC (32.0-37.0) g/dL RDW (11.5-14.5) % MPV (9.5-12.2) fL Immature Gran # (0.00-0.04) 10*3/uL Lymphocytes # (0.90-5.00) 10*3/uL APTT 32.2 H (22.0-30.0) sec Sodium (137-145) mmol/L Chloride (98-107) mmol/L BUN (7-17) mg/dL Creatinine (0.52-1.04) mg/dL Glucose (74-99) mg/dL POC Glucose (mg/dL) 204 H 160 H (70-110) mg/dL 07/12/24 07/12/24 07/12/24 Range/Units 05:56 06:54 06:54 RBC 3.54 L (4.10-5.20) 10*6/uL Hgb 10.3 L (12.0-15.0) g/dL Hct 32.5 L (37.2-46.3) % MCHC 31.7 L (32.0-37.0) g/dL RDW (11.5-14.5) % MPV (9.5-12.2) fL Immature Gran # (0.00-0.04) 10*3/uL Lymphocytes # 0.49 L (0.90-5.00) 10*3/uL APTT (22.0-30.0) sec Sodium 130 L (137-145) mmol/L Chloride 89 L (98-107) mmol/L BUN 44 H (7-17) mg/dL Creatinine 4.56 H (0.52-1.04) mg/dL Glucose 138 H (74-99) mg/dL POC Glucose (mg/dL) 162 H (70-110) mg/dL Microbiology - Last 24 Hours (Table) 07/10/24 04:29 Blood Culture - Preliminary Blood 07/10/24 05:41 Nasal Screen MRSA/MSSA - Final Nasal Swab Assessment and Plan Plan: Assessment: 1. End-stage renal disease maintained on hemodialysis on Wednesday schedule. 2. Hyperkalemia secondary to chronic kidney disease. Resolved. Losartan noted on home medication list. 3. Volume overload. Better with ultrafiltration. 4. Diabetes mellitus. 5. Hypertension with chronic kidney disease. 6. Chronic kidney disease mineral bone disease. 7. Mild to moderate mitral stenosis noted on echocardiogram. Preserved EF. Plan: Hemodialysis today. Maintain Bumex. Continue to hold losartan.
[2024-07-12 11:32] LABS: Glucose,Whole Blood 134 mg/dL (70-110)
--- NOTE | 2024-07-12 11:32 | P.PN ---
Subjective Progress Note Date: 07/12/24 This is a 69-year-old female patient of Dr. Mancuso with past medical history of hypertension, hyperlipidemia, carotid artery stenosis status post bilateral carotid endarterectomy, prior stroke, end-stage renal disease on hemodialysis, relatively normal heart catheterization performed at [facility] 5 years ago. We have been asked to evaluate the patient for elevated troponin. Patient states that she is feeling better now. She states that she came into the hospital because her stomach was hurting. She denies chest pain. She states she chronically has shortness of breath and is on home oxygen. According to the ER documentation, patient came in due to altered mental status and hypertension. Blood pressure 168/66, heart rate 66, pulse ox 97% on 2 L nasal cannula. Patient has been started on IV antibiotics. -EKG: Sinus rhythm with no acute ST changes -Chest x-ray: Left pleural effusion with adjacent atelectasis and/or pneumonia not excluded. -Laboratory studies: WBC 17.9, hemoglobin 13.1, potassium 6.3, BUN 77 creatinine 6.07, sodium 134. Troponin 0.144 and 0. 174. proBNP 26,100. -Home cardiac medications: Aspirin 81 mg daily, atorvastatin 20 mg at bedtime, Bumex 5 mg daily, Coreg 12.5 mg twice daily, losartan 50 mg at bedtime. -Echocardiogram performed at [facility] on 07/07/2023 revealed technically difficult study, normal LV systolic function. Mild mitral stenosis and mild mitral regurgitation. Aortic sclerosis with mild aortic stenosis. Severe pulmonary hypertension. -Lexiscan Cardiolite stress test performed in the office in 09/2021 revealed normal Lexiscan stress test without inducible ischemia. Normal myocardial perfusion. EF 55%. 07/11/2024 Patient examined this morning at the bedside. Patient currently denies chest pain or pressure. Denies shortness of breath. Patient underwent hemodialysis yesterday. Echocardiogram completed revealing ejection fraction 60 to 65%, no obvious regional wall motion abnormalities, mild to moderate mitral stenosis, trace mitral regurgitation, trace tricuspid regurgitation. Blood pressure is elevated with a systolic between [id number]. 07/12 Patient seen and examined. Cardiology signed off yesterday after echocardiogram was obtained. Patient subsequently went into A-fib with RVR and was transferred to the cardiac stepdown unit and started on heparin drip and Cardizem drip currently at 10 mg/h. Heart rate remains elevated in the 130s. She is scheduled for hemodialysis this morning. Blood pressure 138/66. Repeat blood work reveals hemoglobin 10.3, sodium 130, potassium 3.7, BUN 44 creatinine 4.56. TSH 1.55. Chest x-ray reveals mild cardiomegaly with mild bibasilar interstitial edema remains present. No significant change. PHYSICAL EXAM: VITAL SIGNS: Reviewed. GENERAL: Well-developed in no acute distress. NECK: Supple. No JVD or thyromegaly LUNGS: Respirations even and unlabored. Lungs essentially clear to auscultation bilaterally. HEART: Regular rate and rhythm. S1 and S2 heard. EXTREMITIES: Normal range of motion. No clubbing or cyanosis. Peripheral pulses intact. No lower extremity edema ASSESSMENT: Metabolic encephalopathy Elevated troponin secondary to poor renal clearance and infection, no evidence of myocardial injury or ischemia New onset paroxysmal atrial fibrillation with RVR Leukocytosis Hyperkalemia Hypertension Hyperlipidemia Carotid artery stenosis status post bilateral carotid endarterectomy History of CVA End-stage renal disease on hemodialysis Chronic hypoxic respiratory failure on home O2 PLAN: TSH normal Continue the addition of amlodipine 5 mg twice daily for optimal blood pressure control Continue additional cardiac medications: Aspirin 81 mg daily, atorvastatin 20 mg at bedtime, Bumex 2 mg daily, Coreg 12.5 mg twice daily Start patient on amiodarone bolus 300 mg followed by drip on protocol after HD is completed Continue patient on heparin drip Continue patient on Cardizem drip Nurse practitioner note has been reviewed by physician. Signing provider agrees with the documented findings, assessment, and plan of care documented by [employer]INET [employer] as a scribe. Objective - Vital Signs Vital signs: Vital Signs Temp 99.1 F 07/12/24 07:38 Pulse 78 07/12/24 08:28 Resp 24 07/12/24 08:00 BP 138/66 07/12/24 07:38 Pulse Ox 96 07/12/24 07:38 FiO2 Intake & Output 07/11/24 07/12/24 07/12/24 18:59 06:59 18:59 Intake Total 700 412.000 240 Output Total 5500 0 Balance -4800 412.000 240 Weight 93 kg 93 kg Intake: Intake, IV Titration 172.000 Amount Diltiazem 125 mg In 124.167 Dextrose 5% in Water 100 ml @ 10 MG/HR 10 mls/hr IV .[id number] [facility] Rx#: [id number] Heparin Sod,Pork in 0.45% 47.833 NaCl 25,000 unit In 0.45 % NaCl 1 250ml.bag @ 10. 753 UNITS/KG/HR 10 mls/hr IV .Q24H [facility] Rx#: [id number] Oral 200 240 240 Hemodialysis 500 Output: Urine 0 Hemodialysis 3000 Hemodialysis Net Amount 2500 Other: Voiding Method External Catheter External Catheter External Catheter # Voids 0 # Bowel Movements 1 - Labs CBC & Chem 7: 07/12/24 06:54 07/12/24 06:54 Labs: Abnormal Lab Results - Last 24 Hours (Table) 07/11/24 07/11/24 07/11/24 Range/Units 11:36 17:18 18:45 RBC 3.64 L (4.10-5.20) 10*6/uL Hgb 10.7 L (12.0-15.0) g/dL Hct 33.2 L (37.2-46.3) % MCHC (32.0-37.0) g/dL RDW 16.4 H (11.5-14.5) % MPV 9.4 L (9.5-12.2) fL Immature Gran # 0.05 H (0.00-0.04) 10*3/uL Lymphocytes # 0.36 L (0.90-5.00) 10*3/uL APTT (22.0-30.0) sec Sodium (137-145) mmol/L Chloride (98-107) mmol/L BUN (7-17) mg/dL Creatinine (0.52-1.04) mg/dL Glucose (74-99) mg/dL POC Glucose (mg/dL) 192 H 145 H (70-110) mg/dL 07/11/24 07/12/24 07/12/24 Range/Units 20:31 00:17 05:42 RBC (4.10-5.20) 10*6/uL Hgb (12.0-15.0) g/dL Hct (37.2-46.3) % MCHC (32.0-37.0) g/dL RDW (11.5-14.5) % MPV (9.5-12.2) fL Immature Gran # (0.00-0.04) 10*3/uL Lymphocytes # (0.90-5.00) 10*3/uL APTT 32.2 H (22.0-30.0) sec Sodium (137-145) mmol/L Chloride (98-107) mmol/L BUN (7-17) mg/dL Creatinine (0.52-1.04) mg/dL Glucose (74-99) mg/dL POC Glucose (mg/dL) 204 H 160 H (70-110) mg/dL 07/12/24 07/12/24 07/12/24 Range/Units 05:56 06:54 06:54 RBC 3.54 L (4.10-5.20) 10*6/uL Hgb 10.3 L (12.0-15.0) g/dL Hct 32.5 L (37.2-46.3) % MCHC 31.7 L (32.0-37.0) g/dL RDW (11.5-14.5) % MPV (9.5-12.2) fL Immature Gran # (0.00-0.04) 10*3/uL Lymphocytes # 0.49 L (0.90-5.00) 10*3/uL APTT (22.0-30.0) sec Sodium 130 L (137-145) mmol/L Chloride 89 L (98-107) mmol/L BUN 44 H (7-17) mg/dL Creatinine 4.56 H (0.52-1.04) mg/dL Glucose 138 H (74-99) mg/dL POC Glucose (mg/dL) 162 H (70-110) mg/dL Microbiology - Last 24 Hours (Table) 07/10/24 04:29 Blood Culture - Preliminary Blood 07/10/24 05:41 Nasal Screen MRSA/MSSA - Final Nasal Swab
--- NOTE | 2024-07-12 11:32 | P.PN ---
Subjective Progress Note Date: 07/12/24 Hospital Course: Patient is a 69-year-old female with a history of multiple comorbidities including ESRD on hemodialysis on Mondays, Wednesdays and Fridays was brought to the ER via EMS from [facility] with complaints of altered mental status and hypertension since yesterday. Chest x-ray done in the ER shows concern for left-sided pleural effusion with pneumonia. Patient was started on IV levofloxacin. Patient reports that she has been feeling mild shortness of breath but no cough. Patient denies any sick contacts. Patient denies chest pain, fever, chills, nausea, vomiting but admits to being generally weak and fatigued. Her lab work in the ER shows WBC 17.92, hemoglobin 13.1, platelet count 136, neutrophil count 16.72, sodium 134, potassium 6.3, chloride 93, BUN 37, creatinine 6.07, glucose 260, lactic acid 1.6, EGFR 7, magnesium 1.3, AST 50, ALT 48, troponin I 0.144, repeat troponin I 0.174, NT proBNP 41574. Vital signs on arrival shows temperature 98.2 F, pulse rate 64, respirate 18, blood pressure 164/63, oxygen saturation 94% on 2 L via nasal cannula. EKG shows ventricular rate of 61 bpm, PA interval 169 ms, QRS duration of 100 ms, QTc of 462. Nonspecific ST-T wave changes noted. Tall T waves noted diffusely. Of note, patient states that she is not oxygen dependent Subjective: Patient seen and examined at the bedside. Patient admitted to [facility] with the R yesterday evening. Cardiology was consulted and the patient was started on Cardizem and heparin drip. No acute events overnight. Patient had an output of 2.5 L yesterday. Patient is currently undergoing another session of hemodialysis today. Patient denies chest pain, shortness of breath, headaches, dizziness, nausea, vomiting, numbness or tingling upper or lower extremities. All Systems reviewed and pertinent positives and negatives noted in HPI, all other symptoms are negative Objective: Physical examination: Vital signs reviewed General: non toxic, no distress, appears at stated age, overweight Derm: no unusual rashes/lesions, warm, AV fistula on the left arm functioning well Head: atraumatic, normocephalic, symmetric Eyes: EOMI, no lid lag, anicteric sclera, pupils equal round reactive to light ENT: Nose and ears atraumatic Neck: No cervical lymphadenopathy, trachea midline, supple Mouth: no lip lesion, mucus membranes moist Cardiovascular: S1S2 reg, no murmur, positive dorsalis pedis pulse bilateral, 2+ pitting edema Lungs: bilateral expiratory wheezing noted, no rhonchi, no rales, no accessory muscle use Abdominal: soft, nontender to palpation, no guarding Ext: muscle strength 5 out of 5 in all 4 extremities grossly, no gross muscle atrophy, no contractures, Neuro: CN II-XI grossly intact, no gross focal neuro deficits Psych: Alert, oriented, appropriate affect Data reviewed today: Labs: WBC 6.26, hemoglobin 10.3, platelet count 167, sodium 130, potassium 3.7, chloride 89, BUN 44, creatinine 4.56, glucose 138, calcium 8.9, magnesium 1.7, TSH 1.55 Images: No new imaging Assessment and Plan: #Community-acquired pneumonia #Chronic hypoxic respiratory failure on 2 L oxygen at home #Altered mental status, improved Pending blood culture, sputum Gram stain and culture, urine Legionella Continue with IV levofloxacin 500 mg IVPB every 48 hour (antibiotic was started on 07/10/2024) Continue with oxygen supplementation as needed Continue DuoNebs as scheduled and [id number] #ESRD on hemodialysis (Mondays, Wednesdays, Fridays) #Hyperkalemia, resolved #Hypomagnesemia #Volume overload #Hypervolemic hyponatremia Nephrology on board, reviewed Extra hemodialysis session today and tomorrow as per schedule Continue with 2 g of oral Bumex daily and hydralazine 50 mg p.o. 3 times daily Heart healthy diet Order CBC and CMP tomorrow a.m. Avoid nephrotoxic drugs Hold losartan #New onset A-fib with the RVR Cardiology on board Patient on Cardizem drip and heparin drip Continue cardiac telemetry #Elevated NT-proBNP #Elevated troponin I likely secondary to type II NSTEMI Echocardiogram revealed ejection fraction of 60 to 65% with no regional wall abnormalities. Cardiology on board, note reviewed, amlodipine 5 mg twice daily added for optimal pressure control Continue with Bumex 2 g once daily #Hypertension As needed IV hydralazine 10 mg every 6 hours when SBP more than 180 and DBP more than 110 Add scheduled p.o. hydralazine 50 mg 3 times daily Continue to hold losartan #Hyperglycemia sliding scale insulin Monitor for hypoglycemia #Transaminitis Continue to monitor Chronic: COPD/asthma: Resume currently under, Pulmicort GERD: Resume pantoprazole 40 mg once daily DVT prophylaxis: Subcu heparin GI prophylaxis: None F: None E: Replete as needed N: Heart healthy diet A: Ambulatory at baseline The patient is admitted with an anticipated more than than 2 midnight stay for evaluation of community-acquired pneumonia, ESRD on hemodialysis, altered mental status CODE STATUS: Full code Discussed with: Patient Anticipated discharge place: Pending clinical course Dictation was produced using [employer]igo[employer] dictation software. Please excuse any grammatical, word or spelling errors. Objective - Vital Signs Vital signs: Vital Signs Temp 99.1 F 07/12/24 07:38 Pulse 63 07/12/24 07:38 Resp 24 07/12/24 07:38 BP 138/66 07/12/24 07:38 Pulse Ox 96 07/12/24 07:38 FiO2 Intake & Output 07/11/24 07/12/24 07/12/24 18:59 06:59 18:59 Intake Total 700 412.000 240 Output Total 5500 0 Balance -4800 412.000 240 Weight 93 kg 93 kg Intake: Intake, IV Titration 172.000 Amount Diltiazem 125 mg In 124.167 Dextrose 5% in Water 100 ml @ 10 MG/HR 10 mls/hr IV .[id number] [facility] Rx#: [id number] Heparin Sod,Pork in 0.45% 47.833 NaCl 25,000 unit In 0.45 % NaCl 1 250ml.bag @ 10. 753 UNITS/KG/HR 10 mls/hr IV .Q24H [facility] Rx#: [id number] Oral 200 240 240 Hemodialysis 500 Output: Urine 0 Hemodialysis 3000 Hemodialysis Net Amount 2500 Other: Voiding Method External Catheter External Catheter # Voids 0 # Bowel Movements 1 - Labs CBC & Chem 7: 07/12/24 06:54 07/12/24 06:54 Labs: Abnormal Lab Results - Last 24 Hours (Table) 07/11/24 07/11/24 07/11/24 Range/Units 11:36 17:18 18:45 RBC 3.64 L (4.10-5.20) 10*6/uL Hgb 10.7 L (12.0-15.0) g/dL Hct 33.2 L (37.2-46.3) % RDW 16.4 H (11.5-14.5) % MPV 9.4 L (9.5-12.2) fL Immature Gran # 0.05 H (0.00-0.04) 10*3/uL Lymphocytes # 0.36 L (0.90-5.00) 10*3/uL APTT (22.0-30.0) sec POC Glucose (mg/dL) 192 H 145 H (70-110) mg/dL 07/11/24 07/12/24 07/12/24 Range/Units 20:31 00:17 05:42 RBC (4.10-5.20) 10*6/uL Hgb (12.0-15.0) g/dL Hct (37.2-46.3) % RDW (11.5-14.5) % MPV (9.5-12.2) fL Immature Gran # (0.00-0.04) 10*3/uL Lymphocytes # (0.90-5.00) 10*3/uL APTT 32.2 H (22.0-30.0) sec POC Glucose (mg/dL) 204 H 160 H (70-110) mg/dL 07/12/24 Range/Units 05:56 RBC (4.10-5.20) 10*6/uL Hgb (12.0-15.0) g/dL Hct (37.2-46.3) % RDW (11.5-14.5) % MPV (9.5-12.2) fL Immature Gran # (0.00-0.04) 10*3/uL Lymphocytes # (0.90-5.00) 10*3/uL APTT (22.0-30.0) sec POC Glucose (mg/dL) 162 H (70-110) mg/dL Microbiology - Last 24 Hours (Table) 07/10/24 04:29 Blood Culture - Preliminary Blood 07/10/24 05:41 Nasal Screen MRSA/MSSA - Final Nasal Swab
[2024-07-12] MEDS: DEXTROSE 5% IN WATER 250 ML with AMIODARONE 300 MG IV ONE (12:26)
[2024-07-12 16:39] LABS: Glucose,Whole Blood 227 mg/dL (70-110)
[2024-07-12] MEDS: AMIODARONE 360 MG in DEXTROSE 5% IN WATER 200 ML IV ONE (17:24)
[2024-07-12 19:26] LABS: Glucose,Whole Blood 378 mg/dL (70-110)
[2024-07-13] MEDS: AMIODARONE 450 MG in DEXTROSE 5% IN WATER 250 ML IV SCH (00:23)
[2024-07-13 06:03] LABS: Glucose,Whole Blood 163 mg/dL (70-110)
[2024-07-13 07:16] LABS: Basophils # (A) 0.02 10*3/uL (0.00-0.10); Basophils % (A) 0.4 %; Eosinophils # (A) 0.12 10*3/uL (0.04-0.35); Eosinophils % (A) 2.2 %; HCT 35.1 % (37.2-46.3); HGB 11.2 g/dL (12.0-15.0); Lymphocytes # (A) 0.49 10*3/uL (0.90-5.00); Lymphocytes % (A) 8.8 %; MCH 29.2 pg (27.0-32.0); MCHC 31.9 g/dL (32.0-37.0); MCV 91.4 fL (80.0-97.0); Mean Platelet Volume 9.9 fL (9.5-12.2); Monocytes # (A) 0.65 10*3/uL (0.20-1.00); Monocytes % (A) 11.7 %; Neutrophils # (A) 4.23 10*3/uL (1.80-7.70); Neutrophils % (A) 76.4 %; Platelet Count 168 10*3/uL (140-440); RBC 3.84 10*6/uL (4.10-5.20); RDW 16.4 % (11.5-14.5); WBC 5.54 10*3/uL (4.50-10.00)
[2024-07-13 08:08] LABS: African American GFR (CKD) 13 (>60 ml/min/1.73 sqM); Anion Gap 13 mmol/L; Blood Urea Nitrogen 44 mg/dL (7-17); Calcium 9.2 mg/dL (8.4-10.2); Carbon Dioxide 23 mmol/L (22-30); Chloride 91 mmol/L (98-107); Glucose 160 mg/dL (74-99); Magnesium 1.5 mg/dL (1.6-2.3); Non-African American GFR(CKD) 11 (>60 ml/min/1.73 sqM); Potassium 3.7 mmol/L (3.5-5.1); Sodium 127 mmol/L (137-145)
[2024-07-13] MEDS: AMIODARONE 360 MG in DEXTROSE 5% IN WATER 200 ML IV SCH (09:54)
--- NOTE | 2024-07-13 10:03 | P.PN ---
Subjective Patient is seen in follow-up for end-stage renal disease. Tolerated 3 L ultrafiltration yesterday. Denies chest pain or shortness of breath. On a miodarone drip for A-fib. Vital signs are stable. General: No acute distress. HEENT: Head exam is unremarkable. On BiPAP. LUNGS: Scattered rhonchi. HEART: Irregular rate and rhythm. ABDOMEN: Non-tender. Distention noted. EXTREMITITES: 1+ edema. Objective - Vital Signs Vital signs: Vital Signs Temp 97.9 F 07/13/24 07:57 Pulse 120 H 07/13/24 08:46 Resp 18 07/13/24 07:57 BP 101/58 07/13/24 07:57 Pulse Ox 93 L 07/13/24 09:44 FiO2 Intake & Output 07/12/24 07/13/24 07/13/24 18:59 06:59 18:59 Intake Total 827.795 90.684 397.203 Output Total 6400 0 Balance -5572.205 90.684 397.203 Weight 86.5 kg Intake: Intake, IV Titration 187.795 90.684 157.203 Amount Heparin Sod,Pork in 0.45% 187.795 90.684 157.203 NaCl 25,000 unit In 0.45 % NaCl 1 250ml.bag @ 10. 753 UNITS/KG/HR 10 mls/hr IV .Q24H [facility] Rx#: [id number] Oral 240 240 Hemodialysis 400 Output: Urine 0 Hemodialysis 3400 Hemodialysis Net Amount 3000 Other: Voiding Method External Catheter External Catheter External Catheter # Voids 1 0 # Bowel Movements 1 - Labs CBC & Chem 7: 07/13/24 06:48 07/13/24 06:48 Labs: Abnormal Lab Results - Last 24 Hours (Table) 07/12/24 07/12/24 07/12/24 Range/Units 11:31 16:37 19:25 RBC (4.10-5.20) 10*6/uL Hgb (12.0-15.0) g/dL Hct (37.2-46.3) % MCHC (32.0-37.0) g/dL Lymphocytes # (0.90-5.00) 10*3/uL APTT (22.0-30.0) sec Sodium (137-145) mmol/L Chloride (98-107) mmol/L BUN (7-17) mg/dL Creatinine (0.52-1.04) mg/dL Glucose (74-99) mg/dL POC Glucose (mg/dL) 134 H 227 H 378 H (70-110) mg/dL Magnesium (1.6-2.3) mg/dL 07/12/24 07/13/24 07/13/24 Range/Units 23:29 06:02 06:48 RBC 3.84 L (4.10-5.20) 10*6/uL Hgb 11.2 L (12.0-15.0) g/dL Hct 35.1 L (37.2-46.3) % MCHC 31.9 L (32.0-37.0) g/dL Lymphocytes # 0.49 L (0.90-5.00) 10*3/uL APTT 30.6 H (22.0-30.0) sec Sodium (137-145) mmol/L Chloride (98-107) mmol/L BUN (7-17) mg/dL Creatinine (0.52-1.04) mg/dL Glucose (74-99) mg/dL POC Glucose (mg/dL) 163 H (70-110) mg/dL Magnesium (1.6-2.3) mg/dL 07/13/24 07/13/24 Range/Units 06:48 06:48 RBC (4.10-5.20) 10*6/uL Hgb (12.0-15.0) g/dL Hct (37.2-46.3) % MCHC (32.0-37.0) g/dL Lymphocytes # (0.90-5.00) 10*3/uL APTT 48.9 H (22.0-30.0) sec Sodium 127 L (137-145) mmol/L Chloride 91 L (98-107) mmol/L BUN 44 H (7-17) mg/dL Creatinine 3.84 H (0.52-1.04) mg/dL Glucose 160 H (74-99) mg/dL POC Glucose (mg/dL) (70-110) mg/dL Magnesium 1.5 L (1.6-2.3) mg/dL Microbiology - Last 24 Hours (Table) 07/10/24 04:29 Blood Culture - Preliminary Blood Assessment and Plan Plan: Assessment: 1. End-stage renal disease maintained on hemodialysis on Wednesday schedule. 2. Hyperkalemia secondary to chronic kidney disease. Resolved. Losartan noted on home medication list. 3. Volume overload. Better with ultrafiltration. 4. Diabetes mellitus. 5. Hypertension with chronic kidney disease. 6. Chronic kidney disease mineral bone disease. 7. Mild to moderate mitral stenosis noted on echocardiogram. Preserved EF. 8. A-fib with RVR maintained on amiodarone drip. Cardiology following. Plan: Hemodialysis tomorrow. Maintain Bumex.
[2024-07-13 11:30] LABS: Glucose,Whole Blood 207 mg/dL (70-110)
--- NOTE | 2024-07-13 13:00 | P.PN ---
Subjective Progress Note Date: 07/13/24 This is a 69-year-old female patient of Dr. Mancuso with past medical history of hypertension, hyperlipidemia, carotid artery stenosis status post bilateral carotid endarterectomy, prior stroke, end-stage renal disease on hemodialysis, relatively normal heart catheterization performed at [facility] 5 years ago. We have been asked to evaluate the patient for elevated troponin. Patient states that she is feeling better now. She states that she came into the hospital because her stomach was hurting. She denies chest pain. She states she chronically has shortness of breath and is on home oxygen. According to the ER documentation, patient came in due to altered mental status and hypertension. Blood pressure 168/66, heart rate 66, pulse ox 97% on 2 L nasal cannula. Patient has been started on IV antibiotics. -EKG: Sinus rhythm with no acute ST changes -Chest x-ray: Left pleural effusion with adjacent atelectasis and/or pneumonia not excluded. -Laboratory studies: WBC 17.9, hemoglobin 13.1, potassium 6.3, BUN 77 creatinine 6.07, sodium 134. Troponin 0.144 and 0. 174. proBNP 26,100. -Home cardiac medications: Aspirin 81 mg daily, atorvastatin 20 mg at bedtime, Bumex 5 mg daily, Coreg 12.5 mg twice daily, losartan 50 mg at bedtime. -Echocardiogram performed at [facility] on 07/07/2023 revealed technically difficult study, normal LV systolic function. Mild mitral stenosis and mild mitral regurgitation. Aortic sclerosis with mild aortic stenosis. Severe pulmonary hypertension. -Lexiscan Cardiolite stress test performed in the office in 09/2021 revealed normal Lexiscan stress test without inducible ischemia. Normal myocardial perfusion. EF 55%. 07/11/2024 Patient examined this morning at the bedside. Patient currently denies chest pain or pressure. Denies shortness of breath. Patient underwent hemodialysis yesterday. Echocardiogram completed revealing ejection fraction 60 to 65%, no obvious regional wall motion abnormalities, mild to moderate mitral stenosis, trace mitral regurgitation, trace tricuspid regurgitation. Blood pressure is elevated with a systolic between [id number]. 07/12 Patient seen and examined. Cardiology signed off yesterday after echocardiogram was obtained. Patient subsequently went into A-fib with RVR and was transferred to the cardiac stepdown unit and started on heparin drip and Cardizem drip currently at 10 mg/h. Heart rate remains elevated in the 130s. She is scheduled for hemodialysis this morning. Blood pressure 138/66. Repeat blood work reveals hemoglobin 10.3, sodium 130, potassium 3.7, BUN 44 creatinine 4.56. TSH 1.55. Chest x-ray reveals mild cardiomegaly with mild bibasilar interstitial edema remains present. No significant change. 07/13 Cardizem drip was discontinued and patient started on amiodarone drip. She is also on a heparin drip. Heart rate is running 109-120 in atrial fibrillation. blood pressure 104/69, pulse ox 95% on BiPAP. Patient is quite tired at the time of evaluation. Her next dialysis is scheduled for tomorrow. PHYSICAL EXAM: VITAL SIGNS: Reviewed. GENERAL: Well-developed in no acute distress. NECK: Supple. No JVD or thyromegaly LUNGS: Respirations even and unlabored. Lungs essentially clear to auscultation bilaterally. HEART: Regular rate and rhythm. S1 and S2 heard. EXTREMITIES: Normal range of motion. No clubbing or cyanosis. Peripheral pulses intact. No lower extremity edema ASSESSMENT: Metabolic encephalopathy Elevated troponin secondary to poor renal clearance and infection, no evidence of myocardial injury or ischemia New onset paroxysmal atrial fibrillation with RVR Leukocytosis Hyperkalemia Hypertension Hyperlipidemia Carotid artery stenosis status post bilateral carotid endarterectomy History of CVA End-stage renal disease on hemodialysis Chronic hypoxic respiratory failure on home O2 PLAN: TSH normal Continue cardiac medications: Aspirin 81 mg daily, atorvastatin 20 mg at bedtime, Bumex 2 mg daily Discontinue Coreg and start patient on metoprolol tartrate 50 mg twice daily Continue patient on amiodarone at 1 mg/min Continue patient on heparin drip May consider patient for cardioversion N.p.o. after midnight Nurse practitioner note has been reviewed by physician. Signing provider agrees with the documented findings, assessment, and plan of care documented by [employer] FI[employer] as a scribe. Objective - Vital Signs Vital signs: Vital Signs Temp 97.9 F 07/13/24 07:57 Pulse 120 H 07/13/24 08:46 Resp 18 07/13/24 07:57 BP 101/58 07/13/24 07:57 Pulse Ox 97 07/13/24 08:32 FiO2 Intake & Output 07/12/24 07/13/24 07/13/24 18:59 06:59 18:59 Intake Total 827.795 90.684 Output Total 6400 0 Balance -5572.205 90.684 Weight 86.5 kg Intake: Intake, IV Titration 187.795 90.684 Amount Heparin Sod,Pork in 0.45% 187.795 90.684 NaCl 25,000 unit In 0.45 % NaCl 1 250ml.bag @ 10. 753 UNITS/KG/HR 10 mls/hr IV .Q24H [facility] Rx#: [id number] Oral 240 Hemodialysis 400 Output: Urine 0 Hemodialysis 3400 Hemodialysis Net Amount 3000 Other: Voiding Method External Catheter External Catheter External Catheter # Voids 1 0 # Bowel Movements 1 - Labs CBC & Chem 7: 07/13/24 06:48 07/13/24 06:48 Labs: Abnormal Lab Results - Last 24 Hours (Table) 07/12/24 07/12/24 07/12/24 Range/Units 11:31 16:37 19:25 RBC (4.10-5.20) 10*6/uL Hgb (12.0-15.0) g/dL Hct (37.2-46.3) % MCHC (32.0-37.0) g/dL Lymphocytes # (0.90-5.00) 10*3/uL APTT (22.0-30.0) sec Sodium (137-145) mmol/L Chloride (98-107) mmol/L BUN (7-17) mg/dL Creatinine (0.52-1.04) mg/dL Glucose (74-99) mg/dL POC Glucose (mg/dL) 134 H 227 H 378 H (70-110) mg/dL Magnesium (1.6-2.3) mg/dL 07/12/24 07/13/24 07/13/24 Range/Units 23:29 06:02 06:48 RBC 3.84 L (4.10-5.20) 10*6/uL Hgb 11.2 L (12.0-15.0) g/dL Hct 35.1 L (37.2-46.3) % MCHC 31.9 L (32.0-37.0) g/dL Lymphocytes # 0.49 L (0.90-5.00) 10*3/uL APTT 30.6 H (22.0-30.0) sec Sodium (137-145) mmol/L Chloride (98-107) mmol/L BUN (7-17) mg/dL Creatinine (0.52-1.04) mg/dL Glucose (74-99) mg/dL POC Glucose (mg/dL) 163 H (70-110) mg/dL Magnesium (1.6-2.3) mg/dL 07/13/24 07/13/24 Range/Units 06:48 06:48 RBC (4.10-5.20) 10*6/uL Hgb (12.0-15.0) g/dL Hct (37.2-46.3) % MCHC (32.0-37.0) g/dL Lymphocytes # (0.90-5.00) 10*3/uL APTT 48.9 H (22.0-30.0) sec Sodium 127 L (137-145) mmol/L Chloride 91 L (98-107) mmol/L BUN 44 H (7-17) mg/dL Creatinine 3.84 H (0.52-1.04) mg/dL Glucose 160 H (74-99) mg/dL POC Glucose (mg/dL) (70-110) mg/dL Magnesium 1.5 L (1.6-2.3) mg/dL Microbiology - Last 24 Hours (Table) 07/10/24 04:29 Blood Culture - Preliminary Blood
[2024-07-13 14:03] VITALS: BMI 29.0
[2024-07-13] MEDS ORDERED: Magnesium Replacement Protocol 1 EACH MISC MISCELLANE PRN (15:26)
[2024-07-13] MEDS: MAGNESIUM SULFATE-D5W PMX 1 GM in DEXTROSE/WATER 1 100ML.BAG IVPB SCH (16:32)
[2024-07-13 16:44] LABS: Glucose,Whole Blood 198 mg/dL (70-110)
--- NOTE | 2024-07-13 17:23 | P.PN ---
Subjective Progress Note Date: 07/13/24 Hospital Course: Patient is a 69-year-old female with a history of multiple comorbidities including ESRD on hemodialysis on Mondays, Wednesdays and Fridays was brought to the ER via EMS from [facility] with complaints of altered mental status and hypertension since yesterday. Chest x-ray done in the ER shows concern for left-sided pleural effusion with pneumonia. Patient was started on IV levofloxacin. Patient reports that she has been feeling mild shortness of breath but no cough. Patient denies any sick contacts. Patient denies chest pain, fever, chills, nausea, vomiting but admits to being generally weak and fatigued. Her lab work in the ER shows WBC 17.92, hemoglobin 13.1, platelet count 136, neutrophil count 16.72, sodium 134, potassium 6.3, chloride 93, BUN 37, creatinine 6.07, glucose 260, lactic acid 1.6, EGFR 7, magnesium 1.3, AST 50, ALT 48, troponin I 0.144, repeat troponin I 0.174, NT proBNP 65860. Vital signs on arrival shows temperature 98.2 F, pulse rate 64, respirate 18, blood pressure 164/63, oxygen saturation 94% on 2 L via nasal cannula. EKG shows ventricular rate of 61 bpm, AZ interval 169 ms, QRS duration of 100 ms, QTc of 462. Nonspecific ST-T wave changes noted. Tall T waves noted diffusely. Of note, patient states that she is not oxygen dependent Subjective: Patient seen and examined at the bedside.. No acute events overnight. Patient had an output of 3.0 L yesterday. Patient to undergo another session of hemodialysis tomorrow. Patient denies chest pain, shortness of breath, headaches, dizziness, nausea, vomiting, numbness or tingling upper or lower extremities. She is currently on amiodarone drip for A-fib with RVR. All Systems reviewed and pertinent positives and negatives noted in HPI, all other symptoms are negative Objective: Physical examination: Vital signs reviewed General: non toxic, no distress, appears at stated age, overweight Derm: no unusual rashes/lesions, warm, AV fistula on the left arm functioning well, venous stasis dermatitis bilaterally Head: atraumatic, normocephalic, symmetric Eyes: EOMI, no lid lag, anicteric sclera, pupils equal round reactive to light ENT: Nose and ears atraumatic Neck: No cervical lymphadenopathy, trachea midline, supple Mouth: no lip lesion, mucus membranes moist Cardiovascular: S1S2 reg, no murmur, positive dorsalis pedis pulse bilateral, 2+ pitting edema Lungs: bilateral expiratory wheezing noted, no rhonchi, no rales, no accessory muscle use Abdominal: soft, nontender to palpation, no guarding Ext: muscle strength 5 out of 5 in all 4 extremities grossly, no gross muscle atrophy, no contractures, Neuro: CN II-XI grossly intact, no gross focal neuro deficits Psych: Alert, oriented, appropriate affect Data reviewed today: Labs: WBC 5.54, hemoglobin 11.2, sodium 127, potassium 3.7, BUN 44, creatinine 3.84, EGFR 11, glucose 160, magnesium 1.5 Images: No new imaging Assessment and Plan: #Community-acquired pneumonia #Chronic hypoxic respiratory failure on 2 L oxygen at home #Altered mental status, improved Pending blood culture, sputum Gram stain and culture, urine Legionella Continue with IV levofloxacin 500 mg IVPB every 48 hour (antibiotic was started on 07/10/2024) Continue with oxygen supplementation as needed Continue DuoNebs as scheduled and [id number] #ESRD on hemodialysis (Mondays, Wednesdays, Fridays) #Hyperkalemia, resolved #Hypomagnesemia #Volume overload #Hypervolemic hyponatremia Nephrology on board, reviewed Extra hemodialysis session today and tomorrow as per schedule Continue with 2 g of oral Bumex daily Discontinue hydralazine 50 mg p.o. 3 times daily as blood pressure is low Heart healthy diet Order CBC and CMP tomorrow a.m. Avoid nephrotoxic drugs Continue to hold losartan Replace magnesium #New onset A-fib with the RVR Cardiology on board Patient on heparin drip Continue cardiac telemetry Cardioversion tomorrow #Elevated NT-proBNP #Elevated troponin I likely secondary to type II NSTEMI Echocardiogram revealed ejection fraction of 60 to 65% with no regional wall abnormalities. Cardiology on board, note reviewed, amlodipine 5 mg twice daily added for optimal pressure control Continue with Bumex 2 g once daily #Hypertension As needed IV hydralazine 10 mg every 6 hours when SBP more than 180 and DBP more than 110 Discontinue hydralazine 50 mg p.o. 3 times daily as blood pressure is low Continue to hold losartan #Hyperglycemia sliding scale insulin Monitor for hypoglycemia #Transaminitis Continue to monitor Chronic: COPD/asthma: Resume currently under, Pulmicort GERD: Resume pantoprazole 40 mg once daily DVT prophylaxis: Subcu heparin GI prophylaxis: None F: None E: Replete as needed N: Heart healthy diet A: Ambulatory at baseline The patient is admitted with an anticipated more than than 2 midnight stay for evaluation of community-acquired pneumonia, ESRD on hemodialysis, altered mental status CODE STATUS: Full code Discussed with: Patient Anticipated discharge place: Pending clinical course Dictation was produced using [employer] dictation software. Please excuse any grammatical, word or spelling errors. Objective - Vital Signs Vital signs: Vital Signs Temp 97.9 F 07/13/24 07:57 Pulse 119 H 07/13/24 16:07 Resp 20 07/13/24 14:52 BP 119/67 07/13/24 14:52 Pulse Ox 94 L 07/13/24 14:52 FiO2 Intake & Output 07/12/24 07/13/24 07/13/24 18:59 06:59 18:59 Intake Total 827.795 90.684 558.312 Output Total 6400 0 Balance -5572.205 90.684 558.312 Weight 86.5 kg 86.5 kg Intake: Intake, IV Titration 187.795 90.684 318.312 Amount Amiodarone 360 mg In 161.109 Dextrose 5% in Water 200 ml @ 1 MG/MIN 33.333 mls/ hr IV .Q6H RANDI Rx#: [id number] Heparin Sod,Pork in 0.45% 187.795 90.684 157.203 NaCl 25,000 unit In 0.45 % NaCl 1 250ml.bag @ 10. 753 UNITS/KG/HR 10 mls/hr IV .Q24H RANDI Rx#: [id number] Oral 240 240 Hemodialysis 400 Output: Urine 0 Hemodialysis 3400 Hemodialysis Net Amount 3000 Other: Voiding Method External Catheter External Catheter External Catheter # Voids 1 0 # Bowel Movements 1 - Labs CBC & Chem 7: 07/13/24 06:48 07/13/24 06:48 Labs: Abnormal Lab Results - Last 24 Hours (Table) 07/12/24 07/12/24 07/13/24 Range/Units 19:25 23:29 06:02 RBC (4.10-5.20) 10*6/uL Hgb (12.0-15.0) g/dL Hct (37.2-46.3) % MCHC (32.0-37.0) g/dL Lymphocytes # (0.90-5.00) 10*3/uL APTT 30.6 H (22.0-30.0) sec Sodium (137-145) mmol/L Chloride (98-107) mmol/L BUN (7-17) mg/dL Creatinine (0.52-1.04) mg/dL Glucose (74-99) mg/dL POC Glucose (mg/dL) 378 H 163 H (70-110) mg/dL Magnesium (1.6-2.3) mg/dL 07/13/24 07/13/24 07/13/24 Range/Units 06:48 06:48 06:48 RBC 3.84 L (4.10-5.20) 10*6/uL Hgb 11.2 L (12.0-15.0) g/dL Hct 35.1 L (37.2-46.3) % MCHC 31.9 L (32.0-37.0) g/dL Lymphocytes # 0.49 L (0.90-5.00) 10*3/uL APTT 48.9 H (22.0-30.0) sec Sodium 127 L (137-145) mmol/L Chloride 91 L (98-107) mmol/L BUN 44 H (7-17) mg/dL Creatinine 3.84 H (0.52-1.04) mg/dL Glucose 160 H (74-99) mg/dL POC Glucose (mg/dL) (70-110) mg/dL Magnesium 1.5 L (1.6-2.3) mg/dL 07/13/24 07/13/24 Range/Units 11:28 16:42 RBC (4.10-5.20) 10*6/uL Hgb (12.0-15.0) g/dL Hct (37.2-46.3) % MCHC (32.0-37.0) g/dL Lymphocytes # (0.90-5.00) 10*3/uL APTT (22.0-30.0) sec Sodium (137-145) mmol/L Chloride (98-107) mmol/L BUN (7-17) mg/dL Creatinine (0.52-1.04) mg/dL Glucose (74-99) mg/dL POC Glucose (mg/dL) 207 H 198 H (70-110) mg/dL Magnesium (1.6-2.3) mg/dL Microbiology - Last 24 Hours (Table) 07/10/24 04:29 Blood Culture - Preliminary Blood
[2024-07-13 20:28] LABS: Glucose,Whole Blood 230 mg/dL (70-110)
[2024-07-13] MEDS: METOPROLOL TARTRATE 50 MG TAB PO SCH (20:33)
[2024-07-13] MEDS: CITALOPRAM HYDROBROMIDE 20 MG TAB PO SCH (20:35)
[2024-07-14 06:13] LABS: Glucose,Whole Blood 139 mg/dL (70-110)
[2024-07-14 08:05] LABS: Basophils # (A) 0.03 10*3/uL (0.00-0.10); Basophils % (A) 0.5 %; Eosinophils # (A) 0.11 10*3/uL (0.04-0.35); Eosinophils % (A) 1.7 %; HCT 33.8 % (37.2-46.3); HGB 11.1 g/dL (12.0-15.0); Lymphocytes # (A) 0.39 10*3/uL (0.90-5.00); Lymphocytes % (A) 5.9 %; MCH 29.7 pg (27.0-32.0); MCHC 32.8 g/dL (32.0-37.0); MCV 90.4 fL (80.0-97.0); Mean Platelet Volume 10.3 fL (9.5-12.2); Monocytes # (A) 0.46 10*3/uL (0.20-1.00); Monocytes % (A) 6.9 %; Neutrophils # (A) 5.62 10*3/uL (1.80-7.70); Neutrophils % (A) 84.2 %; Platelet Count 169 10*3/uL (140-440); RBC 3.74 10*6/uL (4.10-5.20); RDW 16.2 % (11.5-14.5); WBC 6.66 10*3/uL (4.50-10.00)
[2024-07-14] MEDS: ZINC OXIDE PASTE (Z-GUARD) 1 APPLIC TOPICAL SCH (08:56)
--- NOTE | 2024-07-14 10:04 | P.PN ---
Subjective Patient is seen in follow-up for end-stage renal disease. Tolerating dialysis well. Denies chest pain or shortness of breath. On amiodarone drip for A-fib. Vital signs are stable. General: No acute distress. HEENT: Head exam is unremarkable. On BiPAP. LUNGS: Scattered rhonchi. HEART: Irregular rate and rhythm. ABDOMEN: Non-tender. Distention noted. EXTREMITITES: 1+ edema. Objective - Vital Signs Vital signs: Vital Signs Temp 97.6 F 07/14/24 08:00 Pulse 120 H 07/14/24 08:51 Resp 22 07/14/24 08:00 BP 106/74 07/14/24 08:00 Pulse Ox 100 07/14/24 08:00 FiO2 32 07/14/24 08:37 Intake & Output 07/13/24 07/14/24 07/14/24 18:59 06:59 18:59 Intake Total 858.312 650 200 Output Total 0 Balance 858.312 650 200 Weight 86.5 kg 86.5 kg Intake: Intake, IV Titration 318.312 650 200 Amount Amiodarone 360 mg In 161.109 400 200 Dextrose 5% in Water 200 ml @ 1 MG/MIN 33.333 mls/ hr IV .Q6H RANDI Rx#: [id number] Heparin Sod,Pork in 0.45% 157.203 250 NaCl 25,000 unit In 0.45 % NaCl 1 250ml.bag @ 10. 753 UNITS/KG/HR 10 mls/hr IV .Q24H RANDI Rx#: [id number] Oral 540 Output: Urine 0 Other: Voiding Method External Catheter External Catheter External Catheter # Voids 0 # Bowel Movements 0 - Labs CBC & Chem 7: 07/14/24 07:38 07/13/24 06:48 Labs: Abnormal Lab Results - Last 24 Hours (Table) 07/13/24 07/13/24 07/13/24 Range/Units 11:28 16:42 20:27 RBC (4.10-5.20) 10*6/uL Hgb (12.0-15.0) g/dL Hct (37.2-46.3) % Immature Gran # (0.00-0.04) 10*3/uL Lymphocytes # (0.90-5.00) 10*3/uL APTT (22.0-30.0) sec POC Glucose (mg/dL) 207 H 198 H 230 H (70-110) mg/dL 07/14/24 07/14/24 07/14/24 Range/Units 06:10 07:38 07:38 RBC 3.74 L (4.10-5.20) 10*6/uL Hgb 11.1 L (12.0-15.0) g/dL Hct 33.8 L (37.2-46.3) % Immature Gran # 0.05 H (0.00-0.04) 10*3/uL Lymphocytes # 0.39 L (0.90-5.00) 10*3/uL APTT 42.8 H (22.0-30.0) sec POC Glucose (mg/dL) 139 H (70-110) mg/dL Microbiology - Last 24 Hours (Table) 07/10/24 04:29 Blood Culture - Preliminary Blood Assessment and Plan Plan: Assessment: 1. End-stage renal disease maintained on hemodialysis on Wednesday schedule. 2. Hyperkalemia secondary to chronic kidney disease. Resolved. Losartan noted on home medication list. 3. Volume overload. Better with ultrafiltration. 4. Diabetes mellitus. 5. Hypertension with chronic kidney disease. 6. Chronic kidney disease mineral bone disease. 7. Mild to moderate mitral stenosis noted on echocardiogram. Preserved EF. 8. A-fib with RVR maintained on amiodarone drip. Cardiology following. Plan: Currently seen while undergoing hemodialysis. Edema improved. Maintain Bumex.
[2024-07-14 11:32] LABS: Glucose,Whole Blood 356 mg/dL (70-110)
[2024-07-14 13:30] LABS: African American GFR (CKD) 18 (>60 ml/min/1.73 sqM); Anion Gap 11 mmol/L; Blood Urea Nitrogen 34 mg/dL (7-17); Calcium 9.1 mg/dL (8.4-10.2); Carbon Dioxide 27 mmol/L (22-30); Chloride 91 mmol/L (98-107); Glucose 152 mg/dL (74-99); Magnesium 1.8 mg/dL (1.6-2.3); Non-African American GFR(CKD) 15 (>60 ml/min/1.73 sqM); Potassium 3.8 mmol/L (3.5-5.1); Sodium 129 mmol/L (137-145)
--- NOTE | 2024-07-14 13:34 | P.PN ---
Subjective Progress Note Date: 07/14/24 This is a 69-year-old female patient of Dr. Mancuso with past medical history of hypertension, hyperlipidemia, carotid artery stenosis status post bilateral carotid endarterectomy, prior stroke, end-stage renal disease on hemodialysis, relatively normal heart catheterization performed at [facility] 5 years ago. We have been asked to evaluate the patient for elevated troponin. Patient states that she is feeling better now. She states that she came into the hospital because her stomach was hurting. She denies chest pain. She states she chronically has shortness of breath and is on home oxygen. According to the ER documentation, patient came in due to altered mental status and hypertension. Blood pressure 168/66, heart rate 66, pulse ox 97% on 2 L nasal cannula. Patient has been started on IV antibiotics. -EKG: Sinus rhythm with no acute ST changes -Chest x-ray: Left pleural effusion with adjacent atelectasis and/or pneumonia not excluded. -Laboratory studies: WBC 17.9, hemoglobin 13.1, potassium 6.3, BUN 77 creatinine 6.07, sodium 134. Troponin 0.144 and 0. 174. proBNP 26,100. -Home cardiac medications: Aspirin 81 mg daily, atorvastatin 20 mg at bedtime, Bumex 5 mg daily, Coreg 12.5 mg twice daily, losartan 50 mg at bedtime. -Echocardiogram performed at [facility] on 07/07/2023 revealed technically difficult study, normal LV systolic function. Mild mitral stenosis and mild mitral regurgitation. Aortic sclerosis with mild aortic stenosis. Severe pulmonary hypertension. -Lexiscan Cardiolite stress test performed in the office in 09/2021 revealed normal Lexiscan stress test without inducible ischemia. Normal myocardial perfusion. EF 55%. 07/11/2024 Patient examined this morning at the bedside. Patient currently denies chest pain or pressure. Denies shortness of breath. Patient underwent hemodialysis yesterday. Echocardiogram completed revealing ejection fraction 60 to 65%, no obvious regional wall motion abnormalities, mild to moderate mitral stenosis, trace mitral regurgitation, trace tricuspid regurgitation. Blood pressure is elevated with a systolic between [id number]. 07/12 Patient seen and examined. Cardiology signed off yesterday after echocardiogram was obtained. Patient subsequently went into A-fib with RVR and was transferred to the cardiac stepdown unit and started on heparin drip and Cardizem drip currently at 10 mg/h. Heart rate remains elevated in the 130s. She is scheduled for hemodialysis this morning. Blood pressure 138/66. Repeat blood work reveals hemoglobin 10.3, sodium 130, potassium 3.7, BUN 44 creatinine 4.56. TSH 1.55. Chest x-ray reveals mild cardiomegaly with mild bibasilar interstitial edema remains present. No significant change. 07/13 Cardizem drip was discontinued and patient started on amiodarone drip. She is also on a heparin drip. Heart rate is running 109-120 in atrial fibrillation. blood pressure 104/69, pulse ox 95% on BiPAP. Patient is quite tired at the time of evaluation. Her next dialysis is scheduled for tomorrow. 07/13 Patient seen and examined. Patient remains in atrial fibrillation running in the low 100s, blood pressure 106/74. Patient has been maintained on amiodarone drip at 1 mg/h for the past 24 hours. Patient is also on heparin drip which we will transition to Eliquis today. Patient is receiving hemodialysis this morning. PHYSICAL EXAM: VITAL SIGNS: Reviewed. GENERAL: Well-developed in no acute distress. NECK: Supple. No JVD or thyromegaly LUNGS: Respirations even and unlabored. Lungs essentially clear to auscultation bilaterally. HEART: Regular rate and rhythm. S1 and S2 heard. EXTREMITIES: No clubbing or cyanosis. Peripheral pulses intact. No lower extre mity edema ASSESSMENT: Metabolic encephalopathy Elevated troponin secondary to poor renal clearance and infection, no evidence of myocardial injury or ischemia New onset paroxysmal atrial fibrillation with RVR Leukocytosis Hyperkalemia Hypertension Hyperlipidemia Carotid artery stenosis status post bilateral carotid endarterectomy History of CVA End-stage renal disease on hemodialysis Chronic hypoxic respiratory failure on home O2 PLAN: TSH normal Continue cardiac medications: Aspirin 81 mg daily, atorvastatin 20 mg at bedtime, Bumex 2 mg daily Continue metoprolol tartrate 50 mg twice daily Continue patient on amiodarone at 1 mg/min until tomorrow morning and plan to transition to oral amiodarone 200 mg twice daily Continue patient on heparin drip and discontinue this evening, start patient on Eliquis 5 mg twice daily with a 5-hour overlap No plan for cardioversion at this time Nurse practitioner note has been reviewed by physician. Signing provider agrees with the documented findings, assessment, and plan of care documented by DOLLYMAN as a scribe. Objective - Vital Signs Vital signs: Vital Signs Temp 97.8 F 07/14/24 12:11 Pulse 104 H 07/14/24 12:11 Resp 18 07/14/24 12:11 BP 106/66 07/14/24 12:11 Pulse Ox 100 07/14/24 12:11 FiO2 32 07/14/24 08:37 Intake & Output 07/13/24 07/14/24 07/14/24 18:59 06:59 18:59 Intake Total 858.145 067 6369 Output Total 0 6800 Balance 858.312 650 -5700 Weight 86.5 kg 86.5 kg Intake: Intake, IV Titration 318.312 650 200 Amount Amiodarone 360 mg In 161.109 400 200 Dextrose 5% in Water 200 ml @ 1 MG/MIN 33.333 mls/ hr IV .Q6H RANDI Rx#: [id number] Heparin Sod,Pork in 0.45% 157.203 250 NaCl 25,000 unit In 0.45 % NaCl 1 250ml.bag @ 10. 753 UNITS/KG/HR 10 mls/hr IV .Q24H RANDI Rx#: [id number] Oral 540 500 Hemodialysis 400 Output: Urine 0 0 Hemodialysis 3600 Hemodialysis Net Amount 3200 Other: Voiding Method External Catheter External Catheter External Catheter # Voids 0 # Bowel Movements 0 - Labs CBC & Chem 7: 07/14/24 07:38 07/13/24 06:48 Labs: Abnormal Lab Results - Last 24 Hours (Table) 07/13/24 07/13/24 07/14/24 Range/Units 16:42 20:27 06:10 RBC (4.10-5.20) 10*6/uL Hgb (12.0-15.0) g/dL Hct (37.2-46.3) % Immature Gran # (0.00-0.04) 10*3/uL Lymphocytes # (0.90-5.00) 10*3/uL APTT (22.0-30.0) sec POC Glucose (mg/dL) 198 H 230 H 139 H (70-110) mg/dL 07/14/24 07/14/24 07/14/24 Range/Units 07:38 07:38 11:30 RBC 3.74 L (4.10-5.20) 10*6/uL Hgb 11.1 L (12.0-15.0) g/dL Hct 33.8 L (37.2-46.3) % Immature Gran # 0.05 H (0.00-0.04) 10*3/uL Lymphocytes # 0.39 L (0.90-5.00) 10*3/uL APTT 42.8 H (22.0-30.0) sec POC Glucose (mg/dL) 356 H (70-110) mg/dL Microbiology - Last 24 Hours (Table) 07/10/24 04:29 Blood Culture - Preliminary Blood
--- NOTE | 2024-07-14 15:34 | P.PN ---
Subjective Progress Note Date: 07/14/24 Hospital Course: Patient is a 69-year-old female with a history of multiple comorbidities including ESRD on hemodialysis on Mondays, Wednesdays and Fridays was brought to the ER via EMS from [facility] with complaints of altered mental status and hypertension since yesterday. Chest x-ray done in the ER shows concern for left-sided pleural effusion with pneumonia. Patient was started on IV levofloxacin. Patient reports that she has been feeling mild shortness of breath but no cough. Patient denies any sick contacts. Patient denies chest pain, fever, chills, nausea, vomiting but admits to being generally weak and fatigued. Her lab work in the ER shows WBC 17.92, hemoglobin 13.1, platelet count 136, neutrophil count 16.72, sodium 134, potassium 6.3, chloride 93, BUN 37, creatinine 6.07, glucose 260, lactic acid 1.6, EGFR 7, magnesium 1.3, AST 50, ALT 48, troponin I 0.144, repeat troponin I 0.174, NT proBNP 39718. Vital signs on arrival shows temperature 98.2 F, pulse rate 64, respirate 18, blood pressure 164/63, oxygen saturation 94% on 2 L via nasal cannula. EKG shows ventricular rate of 61 bpm, GA interval 169 ms, QRS duration of 100 ms, QTc of 462. Nonspecific ST-T wave changes noted. Tall T waves noted diffusely. Of note, patient states that she is not oxygen dependent Subjective: Patient seen and examined at the bedside.. No acute events overnight. Patient undergoing dialysis as per schedule today. Patient denies chest pain, shortness of breath, headaches, dizziness, nausea, vomiting, numbness or tingling upper or lower extremities. She is currently on amiodarone drip for A-fib with RVR. All Systems reviewed and pertinent positives and negatives noted in HPI, all other symptoms are negative Objective: Physical examination: Vital signs reviewed General: non toxic, no distress, appears at stated age, overweight Derm: no unusual rashes/lesions, warm, AV fistula on the left arm functioning well, venous stasis dermatitis bilaterally Head: atraumatic, normocephalic, symmetric Eyes: EOMI, no lid lag, anicteric sclera, pupils equal round reactive to light ENT: Nose and ears atraumatic Neck: No cervical lymphadenopathy, trachea midline, supple Mouth: no lip lesion, mucus membranes moist Cardiovascular: S1S2 reg, no murmur, positive dorsalis pedis pulse bilateral, 2+ pitting edema Lungs: bilateral expiratory wheezing noted, no rhonchi, no rales, no accessory muscle use Abdominal: soft, nontender to palpation, no guarding Ext: muscle strength 5 out of 5 in all 4 extremities grossly, no gross muscle atrophy, no contractures, Neuro: CN II-XI grossly intact, no gross focal neuro deficits Psych: Alert, oriented, appropriate affect Data reviewed today: Labs: WBC 6.26, hemoglobin 11.1, sodium 129, potassium 3.8, BUN 34, creatinine 2.96, glucose 152, calcium 8.1, magnesium 1.8 Images: No new imaging Assessment and Plan: #Community-acquired pneumonia #Chronic hypoxic respiratory failure on 2 L oxygen at home #Altered mental status, improved Pending blood culture, sputum Gram stain and culture, urine Legionella Discontinue IV levofloxacin 500 mg IVPB every 48 hour (antibiotic was started on 07/10/2024), patient completed 5 days of antibiotic Continue with oxygen supplementation as needed Continue DuoNebs as scheduled and [id number] #ESRD on hemodialysis (Mondays, Wednesdays, Fridays) #Hyperkalemia, resolved #Hypomagnesemia, resolved #Volume overload #Hypervolemic hyponatremia #Normocytic anemia Nephrology on board, reviewed Hemodialysis today as per schedule Continue Bumex 2 mg p.o. daily Renal diet Order CBC and CMP tomorrow a.m. Avoid nephrotoxic drugs Continue to hold losartan Replace magnesium as needed Order iron studies and reticulocyte count #New onset A-fib with the RVR Cardiology on board, note reviewed Patient on amiodarone drip with plan to transition to oral amiodarone Patient on heparin drip with plan to transition to Eliquis Continue cardiac telemetry No plans for cardioversion at this time #Elevated NT-proBNP #Elevated troponin I likely secondary to type II NSTEMI Echocardiogram revealed ejection fraction of 60 to 65% with no regional wall abnormalities. Cardiology on board, note reviewed, amlodipine 5 mg twice daily added for optimal pressure control Continue with Bumex 2 g once daily #Hypertension Blood pressure continue to be soft Hold hypertensive medications #Hyperglycemia Start patient on Lantus 7 unit subcu morning Continue with sliding scale insulin Monitor for hypoglycemia #Transaminitis Continue to monitor Chronic: COPD/asthma: Resume currently under, Pulmicort GERD: Resume pantoprazole 40 mg once daily DVT prophylaxis: Subcu heparin GI prophylaxis: None F: None E: Replete as needed N: Heart healthy diet A: Ambulatory at baseline The patient is admitted with an anticipated more than than 2 midnight stay for evaluation of community-acquired pneumonia, ESRD on hemodialysis, altered mental status CODE STATUS: Full code Discussed with: Patient Anticipated discharge place: Pending clinical course Dictation was produced using [employer] dictation software. Please excuse any grammatical, word or spelling errors. Dr. Espinoza seen patient with resident, present during exam, and agreed with findings. Objective - Vital Signs Vital signs: Vital Signs Temp 97.8 F 07/14/24 12:11 Pulse 104 H 07/14/24 12:11 Resp 18 07/14/24 12:11 BP 106/66 07/14/24 12:11 Pulse Ox 100 07/14/24 12:11 FiO2 32 07/14/24 08:37 Intake & Output 07/13/24 07/14/24 07/14/24 18:59 06:59 18:59 Intake Total 858.200 099 4087 Output Total 0 6800 Balance 858.312 650 -5700 Weight 86.5 kg 86.5 kg Intake: Intake, IV Titration 318.312 650 200 Amount Amiodarone 360 mg In 161.109 400 200 Dextrose 5% in Water 200 ml @ 1 MG/MIN 33.333 mls/ hr IV .Q6H RANDI Rx#: [id number] Heparin Sod,Pork in 0.45% 157.203 250 NaCl 25,000 unit In 0.45 % NaCl 1 250ml.bag @ 10. 753 UNITS/KG/HR 10 mls/hr IV .Q24H RANDI Rx#: [id number] Oral 540 500 Hemodialysis 400 Output: Urine 0 0 Hemodialysis 3600 Hemodialysis Net Amount 3200 Other: Voiding Method External Catheter External Catheter External Catheter # Voids 0 # Bowel Movements 0 - Labs CBC & Chem 7: 07/14/24 07:38 07/14/24 12:56 Labs: Abnormal Lab Results - Last 24 Hours (Table) 07/13/24 07/13/24 07/14/24 Range/Units 16:42 20:27 06:10 RBC (4.10-5.20) 10*6/uL Hgb (12.0-15.0) g/dL Hct (37.2-46.3) % Immature Gran # (0.00-0.04) 10*3/uL Lymphocytes # (0.90-5.00) 10*3/uL APTT (22.0-30.0) sec Sodium (137-145) mmol/L Chloride (98-107) mmol/L BUN (7-17) mg/dL Creatinine (0.52-1.04) mg/dL Glucose (74-99) mg/dL POC Glucose (mg/dL) 198 H 230 H 139 H (70-110) mg/dL 07/14/24 07/14/24 07/14/24 Range/Units 07:38 07:38 11:30 RBC 3.74 L (4.10-5.20) 10*6/uL Hgb 11.1 L (12.0-15.0) g/dL Hct 33.8 L (37.2-46.3) % Immature Gran # 0.05 H (0.00-0.04) 10*3/uL Lymphocytes # 0.39 L (0.90-5.00) 10*3/uL APTT 42.8 H (22.0-30.0) sec Sodium (137-145) mmol/L Chloride (98-107) mmol/L BUN (7-17) mg/dL Creatinine (0.52-1.04) mg/dL Glucose (74-99) mg/dL POC Glucose (mg/dL) 356 H (70-110) mg/dL 07/14/24 Range/Units 12:56 RBC (4.10-5.20) 10*6/uL Hgb (12.0-15.0) g/dL Hct (37.2-46.3) % Immature Gran # (0.00-0.04) 10*3/uL Lymphocytes # (0.90-5.00) 10*3/uL APTT (22.0-30.0) sec Sodium 129 L (137-145) mmol/L Chloride 91 L (98-107) mmol/L BUN 34 H (7-17) mg/dL Creatinine 2.96 H (0.52-1.04) mg/dL Glucose 152 H (74-99) mg/dL POC Glucose (mg/dL) (70-110) mg/dL Microbiology - Last 24 Hours (Table) 07/10/24 04:29 Blood Culture - Preliminary Blood
[2024-07-14 15:49] LABS: Reticulocyte % 2.89 % (0.10-1.80)
[2024-07-14 16:37] LABS: Glucose,Whole Blood 163 mg/dL (70-110)
[2024-07-14 20:06] LABS: % Iron Saturation 12.05 (12.00-45.00)
[2024-07-14 20:35] LABS: Glucose,Whole Blood 169 mg/dL (70-110)
[2024-07-14] MEDS: APIXABAN 5 MG TAB PO SCH (20:59)
[2024-07-15] MEDS: IPRATROPIUM-ALBUTEROL 3 ML NEB INHALATION PRN (03:02)
[2024-07-15 06:06] LABS: Glucose,Whole Blood 170 mg/dL (70-110)
[2024-07-15 06:12] LABS: Basophils # (A) 0.03 10*3/uL (0.00-0.10); Basophils % (A) 0.4 %; Eosinophils % (A) 1.3 %; HCT 31.4 % (37.2-46.3); HGB 9.9 g/dL (12.0-15.0); Lymphocytes # (A) 0.55 10*3/uL (0.90-5.00); Lymphocytes % (A) 7.1 %; MCH 28.8 pg (27.0-32.0); MCHC 31.5 g/dL (32.0-37.0); MCV 91.3 fL (80.0-97.0); Mean Platelet Volume 9.6 fL (9.5-12.2); Monocytes # (A) 0.66 10*3/uL (0.20-1.00); Monocytes % (A) 8.5 %; Neutrophils # (A) 6.37 10*3/uL (1.80-7.70); Neutrophils % (A) 81.8 %; Platelet Count 145 10*3/uL (140-440); RBC 3.44 10*6/uL (4.10-5.20); RDW 16.5 % (11.5-14.5); WBC 7.78 10*3/uL (4.50-10.00)
[2024-07-15 06:32] LABS: African American GFR (CKD) 12 (>60 ml/min/1.73 sqM); Anion Gap 16 mmol/L; Blood Urea Nitrogen 52 mg/dL (7-17); Calcium 8.9 mg/dL (8.4-10.2); Carbon Dioxide 25 mmol/L (22-30); Chloride 86 mmol/L (98-107); Glucose 224 mg/dL (74-99); Magnesium 1.7 mg/dL (1.6-2.3); Non-African American GFR(CKD) 10 (>60 ml/min/1.73 sqM); Potassium 4.4 mmol/L (3.5-5.1); Sodium 127 mmol/L (137-145)
[2024-07-15] MEDS: INSULIN GLARGINE (LANTUS) 100 UNIT/ML SYR SQ SCH (06:45)
[2024-07-15] MEDS: AMIODARONE 200 MG TAB PO SCH (10:48)
[2024-07-15 11:38] LABS: Glucose,Whole Blood 176 mg/dL (70-110)
--- NOTE | 2024-07-15 12:12 | P.PN ---
Subjective Patient is seen for follow-up for end-stage renal disease. Status post hemodialysis yesterday No significant complaints Off of amiodarone drip Objective - Vital Signs Vital signs: Vital Signs Temp 98.4 F 07/15/24 09:05 Pulse 108 H 07/15/24 12:05 Resp 16 07/15/24 11:50 BP 144/70 07/15/24 11:50 Pulse Ox 97 07/15/24 11:50 FiO2 32 07/14/24 08:37 Intake & Output 07/14/24 07/15/24 07/15/24 18:59 06:59 18:59 Intake Total 1550 399.998 525 Output Total 6800 1 1 Balance -5250 398.998 524 Weight 82 kg Intake: Intake, IV Titration 650 399.998 Amount Amiodarone 360 mg In 400 399.998 Dextrose 5% in Water 200 ml @ 1 MG/MIN 33.333 mls/ hr IV .Q6H RANDI Rx#: [id number] Heparin Sod,Pork in 0.45% 250 NaCl 25,000 unit In 0.45 % NaCl 1 250ml.bag @ 10. 753 UNITS/KG/HR 10 mls/hr IV .Q24H RANDI Rx#: [id number] Oral 500 525 Hemodialysis 400 Output: Urine 0 0 Stool 1 1 Hemodialysis 3600 Hemodialysis Net Amount 3200 Other: Voiding Method External Catheter External Catheter External Catheter # Bowel Movements 1 - Exam Patient is awake, comfortable, no acute distress Examination of the heart S1 and S2 Examination of the lungs bilateral breath sounds are heard Abdomen is soft nontender Examination of lower extremities shows chronic skin changes with 1+ edema - Labs CBC & Chem 7: 07/15/24 05:35 07/15/24 05:35 Labs: Abnormal Lab Results - Last 24 Hours (Table) 07/14/24 07/14/24 07/14/24 Range/Units 12:56 12:56 12:56 RBC (4.10-5.20) 10*6/uL Hgb (12.0-15.0) g/dL Hct (37.2-46.3) % MCHC (32.0-37.0) g/dL Immature Gran # (0.00-0.04) 10*3/uL Lymphocytes # (0.90-5.00) 10*3/uL Retic Count 2.89 H (0.10-1.80) % Sodium 129 L (137-145) mmol/L Chloride 91 L (98-107) mmol/L BUN 34 H (7-17) mg/dL Creatinine 2.96 H (0.52-1.04) mg/dL Glucose 152 H (74-99) mg/dL POC Glucose (mg/dL) (70-110) mg/dL Iron 27 L (50-170) UG/DL TIBC 224 L (228-460) UG/DL Transferrin 160.0 L (204.0-354.0) mg/dL Ferritin 1927.0 H (10.0-291.0) ng/mL 07/14/24 07/14/24 07/15/24 Range/Units 16:35 20:34 05:35 RBC 3.44 L (4.10-5.20) 10*6/uL Hgb 9.9 L (12.0-15.0) g/dL Hct 31.4 L (37.2-46.3) % MCHC 31.5 L (32.0-37.0) g/dL Immature Gran # 0.07 H (0.00-0.04) 10*3/uL Lymphocytes # 0.55 L (0.90-5.00) 10*3/uL Retic Count (0.10-1.80) % Sodium (137-145) mmol/L Chloride (98-107) mmol/L BUN (7-17) mg/dL Creatinine (0.52-1.04) mg/dL Glucose (74-99) mg/dL POC Glucose (mg/dL) 163 H 169 H (70-110) mg/dL Iron (50-170) UG/DL TIBC (228-460) UG/DL Transferrin (204.0-354.0) mg/dL Ferritin (10.0-291.0) ng/mL 07/15/24 07/15/24 07/15/24 Range/Units 05:35 06:04 11:36 RBC (4.10-5.20) 10*6/uL Hgb (12.0-15.0) g/dL Hct (37.2-46.3) % MCHC (32.0-37.0) g/dL Immature Gran # (0.00-0.04) 10*3/uL Lymphocytes # (0.90-5.00) 10*3/uL Retic Count (0.10-1.80) % Sodium 127 L (137-145) mmol/L Chloride 86 L (98-107) mmol/L BUN 52 H (7-17) mg/dL Creatinine 4.07 H (0.52-1.04) mg/dL Glucose 224 H (74-99) mg/dL POC Glucose (mg/dL) 170 H 176 H (70-110) mg/dL Iron (50-170) UG/DL TIBC (228-460) UG/DL Transferrin (204.0-354.0) mg/dL Ferritin (10.0-291.0) ng/mL Assessment and Plan Assessment: 1. End-stage renal disease maintained on hemodialysis on Wednesday schedule. 2. Hyperkalemia secondary to chronic kidney disease. Resolved. Losartan held 3. Volume overload. Better with ultrafiltration. 4. Diabetes mellitus. 5. Hypertension with chronic kidney disease. 6. Chronic kidney disease mineral bone disease. 7. Mild to moderate mitral stenosis noted on echocardiogram. Preserved EF. 8. A-fib with RVR status post amiodarone drip. Cardiology following. Plan: Continue with Bumex Hemodialysis on Wednesday schedule
--- NOTE | 2024-07-15 14:45 | P.PN ---
Subjective Progress Note Date: 07/15/24 Hospital Course: Patient is a 69-year-old female with a history of multiple comorbidities including ESRD on hemodialysis on Mondays, Wednesdays and Fridays was brought to the ER via EMS from [facility] with complaints of altered mental status and hypertension since yesterday. Chest x-ray done in the ER shows concern for left-sided pleural effusion with pneumonia. Patient was started on IV levofloxacin. Patient reports that she has been feeling mild shortness of breath but no cough. Patient denies any sick contacts. Patient denies chest pain, fever, chills, nausea, vomiting but admits to being generally weak and fatigued. Her lab work in the ER shows WBC 17.92, hemoglobin 13.1, platelet count 136, neutrophil count 16.72, sodium 134, potassium 6.3, chloride 93, BUN 37, creatinine 6.07, glucose 260, lactic acid 1.6, EGFR 7, magnesium 1.3, AST 50, ALT 48, troponin I 0.144, repeat troponin I 0.174, NT proBNP 12554. Vital signs on arrival shows temperature 98.2 F, pulse rate 64, respirate 18, blood pressure 164/63, oxygen saturation 94% on 2 L via nasal cannula. EKG shows ventricular rate of 61 bpm, MO interval 169 ms, QRS duration of 100 ms, QTc of 462. Nonspecific ST-T wave changes noted. Tall T waves noted diffusely. Of note, patient states that she is not oxygen dependent Subjective: Patient seen and examined at the bedside.. No acute events overnight. Patient to undergo dialysis as per schedule Wednesday. Patient denies chest pain, shortness of breath, headaches, dizziness, nausea, vomiting, numbness or tingling upper or lower extremities. She is currently off amiodarone drip for A-fib with RVR. All Systems reviewed and pertinent positives and negatives noted in HPI, all other symptoms are negative Objective: Physical examination: Vital signs reviewed General: non toxic, no distress, appears at stated age, overweight Derm: no unusual rashes/lesions, warm, AV fistula on the left arm functioning well, venous stasis dermatitis bilaterally Head: atraumatic, normocephalic, symmetric Eyes: EOMI, no lid lag, anicteric sclera, pupils equal round reactive to light ENT: Nose and ears atraumatic Neck: No cervical lymphadenopathy, trachea midline, supple Mouth: no lip lesion, mucus membranes moist Cardiovascular: S1S2 reg, no murmur, positive dorsalis pedis pulse bilateral, 2+ pitting edema Lungs: bilateral expiratory wheezing noted, no rhonchi, no rales, no accessory muscle use Abdominal: soft, nontender to palpation, no guarding Ext: muscle strength 5 out of 5 in all 4 extremities grossly, no gross muscle atrophy, no contractures, Neuro: CN II-XI grossly intact, no gross focal neuro deficits Psych: Alert, oriented, appropriate affect Data reviewed today: Labs: WBC 0.78, hemoglobin 9.9, sodium 127, BUN 52, creatinine 4.07, calcium 8.9, magnesium 1.9, iron 27, TIBC 224, percent saturation 12.5, transferrin 160, ferritin 1927 Images: No new imaging Assessment and Plan: #Community-acquired pneumonia #Chronic hypoxic respiratory failure on 2 L oxygen at home #Altered mental status, improved Pending blood culture, sputum Gram stain and culture, urine Legionella Discontinue IV levofloxacin 500 mg IVPB every 48 hour (antibiotic was started on 07/10/2024), patient completed 5 days of antibiotic Continue with oxygen supplementation as needed Continue DuoNebs as scheduled and [id number] #ESRD on hemodialysis (Mondays, Wednesdays, Fridays) #Hyperkalemia, resolved #Hypomagnesemia, resolved #Volume overload #Hypervolemic hyponatremia #Anemia of the chronic kidney disease Nephrology on board, reviewed Hemodialysis today as per schedule Wednesday Continue Bumex 2 mg p.o. daily Renal diet Order CBC and CMP tomorrow a.m. Avoid nephrotoxic drugs Continue to hold losartan Replace magnesium as needed #New onset A-fib with the RVR Cardiology on board, note reviewed Patient on oral amiodarone Switch Lopressor from 50 twice daily to 50 p.o. 3 times daily On Eliquis 5 mg p.o. twice daily Continue cardiac telemetry No plans for cardioversion at this time #Elevated NT-proBNP #Elevated troponin I likely secondary to type II NSTEMI Echocardiogram revealed ejection fraction of 60 to 65% with no regional wall abnormalities. Cardiology on board, note reviewed, amlodipine 5 mg twice daily added for optimal pressure control Continue with Bumex 2 g once daily #Hypertension Blood pressure continue to be soft Hold hypertensive medications #Hyperglycemia Start patient on Lantus 7 unit subcu morning Continue with sliding scale insulin Monitor for hypoglycemia #Transaminitis Continue to monitor Chronic: COPD/asthma: Resume currently under, Pulmicort GERD: Resume pantoprazole 40 mg once daily DVT prophylaxis: Subcu heparin GI prophylaxis: None F: None E: Replete as needed N: Heart healthy diet A: Ambulatory at baseline CODE STATUS: Full code Discussed with: Patient Anticipated discharge place: Pending clinical course Dictation was produced using [employer] dictation software. Please excuse any grammatical, word or spelling errors. Dr. Espinoza seen patient with resident, present during exam, and agreed with findings. Objective - Vital Signs Vital signs: Vital Signs Temp 98.4 F 07/15/24 09:05 Pulse 108 H 07/15/24 12:05 Resp 16 07/15/24 11:50 BP 144/70 07/15/24 11:50 Pulse Ox 97 07/15/24 11:50 FiO2 32 07/14/24 08:37 Intake & Output 07/14/24 07/15/24 07/15/24 18:59 06:59 18:59 Intake Total 1550 399.998 525 Output Total 6800 1 1 Balance -5250 398.998 524 Weight 82 kg Intake: Intake, IV Titration 650 399.998 Amount Amiodarone 360 mg In 400 399.998 Dextrose 5% in Water 200 ml @ 1 MG/MIN 33.333 mls/ hr IV .Q6H RANDI Rx#: [id number] Heparin Sod,Pork in 0.45% 250 NaCl 25,000 unit In 0.45 % NaCl 1 250ml.bag @ 10. 753 UNITS/KG/HR 10 mls/hr IV .Q24H RANDI Rx#: [id number] Oral 500 525 Hemodialysis 400 Output: Urine 0 0 Stool 1 1 Hemodialysis 3600 Hemodialysis Net Amount 3200 Other: Voiding Method External Catheter External Catheter External Catheter # Bowel Movements 1 - Labs CBC & Chem 7: 07/15/24 05:35 07/15/24 05:35 Labs: Abnormal Lab Results - Last 24 Hours (Table) 07/14/24 07/14/24 07/14/24 Range/Units 12:56 12:56 16:35 RBC (4.10-5.20) 10*6/uL Hgb (12.0-15.0) g/dL Hct (37.2-46.3) % MCHC (32.0-37.0) g/dL Immature Gran # (0.00-0.04) 10*3/uL Lymphocytes # (0.90-5.00) 10*3/uL Retic Count 2.89 H (0.10-1.80) % Sodium (137-145) mmol/L Chloride (98-107) mmol/L BUN (7-17) mg/dL Creatinine (0.52-1.04) mg/dL Glucose (74-99) mg/dL POC Glucose (mg/dL) 163 H (70-110) mg/dL Iron 27 L (50-170) UG/DL TIBC 224 L (228-460) UG/DL Transferrin 160.0 L (204.0-354.0) mg/dL Ferritin 1927.0 H (10.0-291.0) ng/mL 07/14/24 07/15/24 07/15/24 Range/Units 20:34 05:35 05:35 RBC 3.44 L (4.10-5.20) 10*6/uL Hgb 9.9 L (12.0-15.0) g/dL Hct 31.4 L (37.2-46.3) % MCHC 31.5 L (32.0-37.0) g/dL Immature Gran # 0.07 H (0.00-0.04) 10*3/uL Lymphocytes # 0.55 L (0.90-5.00) 10*3/uL Retic Count (0.10-1.80) % Sodium 127 L (137-145) mmol/L Chloride 86 L (98-107) mmol/L BUN 52 H (7-17) mg/dL Creatinine 4.07 H (0.52-1.04) mg/dL Glucose 224 H (74-99) mg/dL POC Glucose (mg/dL) 169 H (70-110) mg/dL Iron (50-170) UG/DL TIBC (228-460) UG/DL Transferrin (204.0-354.0) mg/dL Ferritin (10.0-291.0) ng/mL 07/15/24 07/15/24 Range/Units 06:04 11:36 RBC (4.10-5.20) 10*6/uL Hgb (12.0-15.0) g/dL Hct (37.2-46.3) % MCHC (32.0-37.0) g/dL Immature Gran # (0.00-0.04) 10*3/uL Lymphocytes # (0.90-5.00) 10*3/uL Retic Count (0.10-1.80) % Sodium (137-145) mmol/L Chloride (98-107) mmol/L BUN (7-17) mg/dL Creatinine (0.52-1.04) mg/dL Glucose (74-99) mg/dL POC Glucose (mg/dL) 170 H 176 H (70-110) mg/dL Iron (50-170) UG/DL TIBC (228-460) UG/DL Transferrin (204.0-354.0) mg/dL Ferritin (10.0-291.0) ng/mL Microbiology - Last 24 Hours (Table) 07/10/24 04:29 Blood Culture - Final Blood
[2024-07-15 16:33] LABS: Glucose,Whole Blood 127 mg/dL (70-110)
--- NOTE | 2024-07-15 16:45 | P.PN ---
Subjective Progress Note Date: 07/15/24 This is a 69-year-old female patient of Dr. Mancuso with past medical history of hypertension, hyperlipidemia, carotid artery stenosis status post bilateral carotid endarterectomy, prior stroke, end-stage renal disease on hemodialysis, relatively normal heart catheterization performed at [facility] 5 years ago. We have been asked to evaluate the patient for elevated troponin. Patient states that she is feeling better now. She states that she came into the hospital because her stomach was hurting. She denies chest pain. She states she chronically has shortness of breath and is on home oxygen. According to the ER documentation, patient came in due to altered mental status and hypertension. Blood pressure 168/66, heart rate 66, pulse ox 97% on 2 L nasal cannula. Patient has been started on IV antibiotics. -EKG: Sinus rhythm with no acute ST changes -Chest x-ray: Left pleural effusion with adjacent atelectasis and/or pneumonia not excluded. -Laboratory studies: WBC 17.9, hemoglobin 13.1, potassium 6.3, BUN 77 creatinine 6.07, sodium 134. Troponin 0.144 and 0. 174. proBNP 26,100. -Home cardiac medications: Aspirin 81 mg daily, atorvastatin 20 mg at bedtime, Bumex 5 mg daily, Coreg 12.5 mg twice daily, losartan 50 mg at bedtime. -Echocardiogram performed at [facility] on 07/07/2023 revealed technically difficult study, normal LV systolic function. Mild mitral stenosis and mild mitral regurgitation. Aortic sclerosis with mild aortic stenosis. Severe pulmonary hypertension. -Lexiscan Cardiolite stress test performed in the office in 09/2021 revealed normal Lexiscan stress test without inducible ischemia. Normal myocardial perfusion. EF 55%. 07/11/2024 Patient examined this morning at the bedside. Patient currently denies chest pain or pressure. Denies shortness of breath. Patient underwent hemodialysis yesterday. Echocardiogram completed revealing ejection fraction 60 to 65%, no obvious regional wall motion abnormalities, mild to moderate mitral stenosis, trace mitral regurgitation, trace tricuspid regurgitation. Blood pressure is elevated with a systolic between [id number]. 07/12 Patient seen and examined. Cardiology signed off yesterday after echocardiogram was obtained. Patient subsequently went into A-fib with RVR and was transferred to the cardiac stepdown unit and started on heparin drip and Cardizem drip currently at 10 mg/h. Heart rate remains elevated in the 130s. She is scheduled for hemodialysis this morning. Blood pressure 138/66. Repeat blood work reveals hemoglobin 10.3, sodium 130, potassium 3.7, BUN 44 creatinine 4.56. TSH 1.55. Chest x-ray reveals mild cardiomegaly with mild bibasilar interstitial edema remains present. No significant change. 07/13 Cardizem drip was discontinued and patient started on amiodarone drip. She is also on a heparin drip. Heart rate is running 109-120 in atrial fibrillation. blood pressure 104/69, pulse ox 95% on BiPAP. Patient is quite tired at the time of evaluation. Her next dialysis is scheduled for tomorrow. 07/14 Patient seen and examined. Patient remains in atrial fibrillation running in the low 100s, blood pressure 106/74. Patient has been maintained on amiodarone drip at 1 mg/h for the past 24 hours. Patient is also on heparin drip which we will transition to Eliquis today. Patient is receiving hemodialysis this morning. 07/15/2024 Seen and examined at bedside this a.m patient continues to be in atrial fibrillation and low heart rates, blood pressure is controlled Still continues to be mildly volume overloaded, PHYSICAL EXAM: VITAL SIGNS: Reviewed. GENERAL: Well-developed in no acute distress. NECK: Supple. No JVD or thyromegaly LUNGS: Respirations even and unlabored. Lungs essentially clear to auscultation bilaterally. HEART: Regular rate and rhythm. S1 and S2 heard. EXTREMITIES: No clubbing or cyanosis. Peripheral pulses intact. No lower extremity edema ASSESSMENT: Metabolic encephalopathy Elevated troponin secondary to poor renal clearance and infection, no evidence of myocardial injury or ischemia New onset paroxysmal atrial fibrillation with RVR Leukocytosis Hyperkalemia Hypertension Hyperlipidemia Carotid artery stenosis status post bilateral carotid endarterectomy History of CVA End-stage renal disease on hemodialysis Chronic hypoxic respiratory failure on home O2 PLAN: Continue cardiac medications: Aspirin 81 mg daily, atorvastatin 20 mg at bedtime, Bumex 2 mg daily Continue metoprolol tartrate 50 mg twice daily Continue p.o. amiodarone and Eliquis No plan for cardioversion at this time Objective - Vital Signs Vital signs: Vital Signs Temp 98.4 F 07/15/24 09:05 Pulse 104 H 07/15/24 15:47 Resp 16 07/15/24 11:50 BP 144/70 07/15/24 11:50 Pulse Ox 97 07/15/24 11:50 FiO2 32 07/14/24 08:37 Intake & Output 07/14/24 07/15/24 07/15/24 18:59 06:59 18:59 Intake Total 1550 590.010 7777 Output Total 6800 1 1 Balance -5250 291.223 2780 Weight 82 kg Intake: Intake, IV Titration 650 399.998 Amount Amiodarone 360 mg In 400 399.998 Dextrose 5% in Water 200 ml @ 1 MG/MIN 33.333 mls/ hr IV .Q6H RANDI Rx#: [id number] Heparin Sod,Pork in 0.45% 250 NaCl 25,000 unit In 0.45 % NaCl 1 250ml.bag @ 10. 753 UNITS/KG/HR 10 mls/hr IV .Q24H RANDI Rx#: [id number] Oral 500 1005 Hemodialysis 400 Output: Urine 0 0 Stool 1 1 Hemodialysis 3600 Hemodialysis Net Amount 3200 Other: Voiding Method External Catheter External Catheter External Catheter # Bowel Movements 1 - Labs CBC & Chem 7: 07/15/24 05:35 07/15/24 05:35 Labs: Abnormal Lab Results - Last 24 Hours (Table) 07/14/24 07/14/24 07/15/24 Range/Units 12:56 20:34 05:35 RBC 3.44 L (4.10-5.20) 10*6/uL Hgb 9.9 L (12.0-15.0) g/dL Hct 31.4 L (37.2-46.3) % MCHC 31.5 L (32.0-37.0) g/dL Immature Gran # 0.07 H (0.00-0.04) 10*3/uL Lymphocytes # 0.55 L (0.90-5.00) 10*3/uL Sodium (137-145) mmol/L Chloride (98-107) mmol/L BUN (7-17) mg/dL Creatinine (0.52-1.04) mg/dL Glucose (74-99) mg/dL POC Glucose (mg/dL) 169 H (70-110) mg/dL Iron 27 L (50-170) UG/DL TIBC 224 L (228-460) UG/DL Transferrin 160.0 L (204.0-354.0) mg/dL Ferritin 1927.0 H (10.0-291.0) ng/mL 07/15/24 07/15/24 07/15/24 Range/Units 05:35 06:04 11:36 RBC (4.10-5.20) 10*6/uL Hgb (12.0-15.0) g/dL Hct (37.2-46.3) % MCHC (32.0-37.0) g/dL Immature Gran # (0.00-0.04) 10*3/uL Lymphocytes # (0.90-5.00) 10*3/uL Sodium 127 L (137-145) mmol/L Chloride 86 L (98-107) mmol/L BUN 52 H (7-17) mg/dL Creatinine 4.07 H (0.52-1.04) mg/dL Glucose 224 H (74-99) mg/dL POC Glucose (mg/dL) 170 H 176 H (70-110) mg/dL Iron (50-170) UG/DL TIBC (228-460) UG/DL Transferrin (204.0-354.0) mg/dL Ferritin (10.0-291.0) ng/mL 07/15/24 Range/Units 16:31 RBC (4.10-5.20) 10*6/uL Hgb (12.0-15.0) g/dL Hct (37.2-46.3) % MCHC (32.0-37.0) g/dL Immature Gran # (0.00-0.04) 10*3/uL Lymphocytes # (0.90-5.00) 10*3/uL Sodium (137-145) mmol/L Chloride (98-107) mmol/L BUN (7-17) mg/dL Creatinine (0.52-1.04) mg/dL Glucose (74-99) mg/dL POC Glucose (mg/dL) 127 H (70-110) mg/dL Iron (50-170) UG/DL TIBC (228-460) UG/DL Transferrin (204.0-354.0) mg/dL Ferritin (10.0-291.0) ng/mL Microbiology - Last 24 Hours (Table) 07/10/24 04:29 Blood Culture - Final Blood
[2024-07-15] MEDS: METOPROLOL TARTRATE 50 MG TAB PO SCH (16:52)
[2024-07-15 20:05] LABS: Glucose,Whole Blood 166 mg/dL (70-110)
[2024-07-16 06:23] LABS: Glucose,Whole Blood 121 mg/dL (70-110)
[2024-07-16 09:40] LABS: African American GFR (CKD) 7 (>60 ml/min/1.73 sqM); Anion Gap 17 mmol/L; Blood Urea Nitrogen 76 mg/dL (7-17); Calcium 9.1 mg/dL (8.4-10.2); Carbon Dioxide 24 mmol/L (22-30); Chloride 85 mmol/L (98-107); Glucose 105 mg/dL (74-99); Magnesium 1.7 mg/dL (1.6-2.3); Non-African American GFR(CKD) 6 (>60 ml/min/1.73 sqM); Potassium 5.2 mmol/L (3.5-5.1); Sodium 126 mmol/L (137-145)
--- NOTE | 2024-07-16 10:22 | P.PN ---
Subjective Patient is seen for follow-up for end-stage renal disease. Scheduled for hemodialysis in a.m. No significant complaints Objective - Vital Signs Vital signs: Vital Signs Temp 97.4 F L 07/15/24 23:20 Pulse 72 07/16/24 09:10 Resp 23 07/16/24 04:05 BP 140/83 07/16/24 04:05 Pulse Ox 99 07/16/24 08:48 FiO2 32 07/15/24 20:40 Intake & Output 07/15/24 07/16/24 07/16/24 18:59 06:59 18:59 Intake Total 1245 300 Output Total 2 Balance 1243 300 Weight 87 kg Intake: Oral 1245 300 Output: Stool 2 Other: Voiding Method External Catheter Diaper Incontinent # Voids 0 # Bowel Movements 1 1 - Exam Patient is awake, comfortable, no acute distress Examination of the heart S1 and S2 Examination of the lungs bilateral breath sounds are heard Abdomen is soft nontender Examination of lower extremities shows chronic skin changes with 1+ edema - Labs CBC & Chem 7: 07/15/24 05:35 07/16/24 07:50 Labs: Abnormal Lab Results - Last 24 Hours (Table) 07/15/24 07/15/24 07/15/24 Range/Units 11:36 16:31 20:03 Sodium (137-145) mmol/L Potassium (3.5-5.1) mmol/L Chloride (98-107) mmol/L BUN (7-17) mg/dL Creatinine (0.52-1.04) mg/dL Glucose (74-99) mg/dL POC Glucose (mg/dL) 176 H 127 H 166 H (70-110) mg/dL 07/16/24 07/16/24 Range/Units 06:21 07:50 Sodium 126 L (137-145) mmol/L Potassium 5.2 H (3.5-5.1) mmol/L Chloride 85 L (98-107) mmol/L BUN 76 H (7-17) mg/dL Creatinine 6.31 H (0.52-1.04) mg/dL Glucose 105 H (74-99) mg/dL POC Glucose (mg/dL) 121 H (70-110) mg/dL Microbiology - Last 24 Hours (Table) 07/10/24 04:29 Blood Culture - Final Blood Assessment and Plan Assessment: 1. End-stage renal disease maintained on hemodialysis on Wednesday schedule. 2. Hyperkalemia secondary to chronic kidney disease. Resolved. Losartan held 3. Volume overload. Better with ultrafiltration. 4. Diabetes mellitus. 5. Hypertension with chronic kidney disease. 6. Chronic kidney disease mineral bone disease. 7. Mild to moderate mitral stenosis noted on echocardiogram. Preserved EF. 8. A-fib with RVR status post amiodarone drip. Cardiology following. Plan: Continue with Bumex Hemodialysis in a.m.
[2024-07-16 11:04] LABS: Glucose,Whole Blood 169 mg/dL (70-110)
--- NOTE | 2024-07-16 11:18 | XR ---
EXAMINATION TYPE: XR chest 1V portable DATE OF EXAM: 07/16/2024 10:57 AM COMPARISON: Chest radiographs from 07/12/2024 CLINICAL INDICATION: Female, 69 years old with history of concern for aspiration; [facility] TECHNIQUE: XR chest 1V portable Frontal view of the chest. FINDINGS: Lungs/Pleura: Basilar airspace opacities are present. No evidence of focal consolidation or pneumotho rax. Blunting of the costophrenic angles is present. Pulmonary vascularity: Pulmonary vascular congestion. Heart/mediastinum: Cardiomediastinal silhouette is enlarged. Musculoskeletal: No acute osseous pathology. Other findings: None IMPRESSION: Basilar airspace opacities possibly representing aspiration correlate clinically consider speech path ology consultation. [facility], , 07/16/2024 11:15 AM
--- NOTE | 2024-07-16 12:07 | P.PN ---
Subjective Patient is a 69-year-old female with a history of multiple comorbidities including ESRD on hemodialysis on Mondays, Wednesdays and Fridays was brought to the ER via EMS from [facility] with complaints of altered mental status and hypertension since yesterday. Chest x-ray done in the ER shows concern for left-sided pleural effusion with pneumonia. Patient was started on IV levofloxacin. Patient reports that she has been feeling mild shortness of breath but no cough. Patient denies any sick contacts. Patient denies chest pain, fever, chills, nausea, vomiting but admits to being generally weak and fatigued. Her lab work in the ER shows WBC 17.92, hemoglobin 13.1, platelet count 136, neutrophil count 16.72, sodium 134, potassium 6.3, chloride 93, BUN 37, creatinine 6.07, glucose 260, lactic acid 1.6, EGFR 7, magnesium 1.3, AST 50, ALT 48, troponin I 0.144, repeat troponin I 0.174, NT proBNP 20322. Vital signs on arrival shows temperature 98.2 F, pulse rate 64, respirate 18, blood pressure 164/63, oxygen saturation 94% on 2 L via nasal cannula. EKG shows ventricular rate of 61 bpm, DC interval 169 ms, QRS duration of 100 ms, QTc of 462. Nonspecific ST-T wave changes noted. Tall T waves noted diffusely. Of note, patient states that she is not oxygen dependent Subjective: Patient seen and examined at the bedside.. No acute events overnight. Patient to undergo dialysis as per schedule Wednesday. Patient denies chest pain, shortness of breath, headaches, dizziness, nausea, vomiting, numbness or tingling upper or lower extremities. She is currently off amiodarone drip for A-fib with RVR. 07/16/2024 Patient clinically is not doing so great. Patient is on 3 L of oxygen rhonchi bilaterally. Concern for aspiration patient will remain n.p.o. speech therapy was consulted patient does not have any leukocytosis at this time patient will not require any antibiotics at this time patient may have some pulmonary edema on the x-ray as well. All Systems reviewed and pertinent positives and negatives noted in HPI, all oth er symptoms are negative Objective: Physical examination: Vital signs reviewed General: non toxic, no distress, appears at stated age, overweight Derm: no unusual rashes/lesions, warm, AV fistula on the left arm functioning well, venous stasis dermatitis bilaterally Head: atraumatic, normocephalic, symmetric Eyes: EOMI, no lid lag, anicteric sclera, pupils equal round reactive to light ENT: Nose and ears atraumatic Neck: No cervical lymphadenopathy, trachea midline, supple Mouth: no lip lesion, mucus membranes moist Cardiovascular: S1S2 reg, no murmur, positive dorsalis pedis pulse bilateral, 2+ pitting edema Lungs: bilateral expiratory wheezing noted, scattered rhonchi and rales, no acc essory muscle use Abdominal: soft, nontender to palpation, no guarding Ext: muscle strength 5 out of 5 in all 4 extremities grossly, no gross muscle atrophy, no contractures, Neuro: CN II-XI grossly intact, no gross focal neuro deficits Psych: Alert, oriented, appropriate affect Data reviewed today: Labs: WBC 0.78, hemoglobin 9.9, sodium 127, BUN 52, creatinine 4.07, calcium 8.9, magnesium 1.9, iron 27, TIBC 224, percent saturation 12.5, transferrin 160, ferritin 1927 Images: No new imaging Assessment and Plan: #Community-acquired pneumonia # Patient had aspiration pneumonia speech therapy consultation, patient will be n.p.o. will not require any antibiotics at this time. #Chronic hypoxic respiratory failure on 2 L oxygen at home #Altered mental status, improved Pending blood culture, sputum Gram stain and culture, urine Legionella Discontinue IV levofloxacin 500 mg IVPB every 48 hour (antibiotic was started on 07/10/2024), patient completed 5 days of antibiotic Continue with oxygen supplementation as needed Continue DuoNebs as scheduled and [id number] #ESRD on hemodialysis (Mondays, Wednesdays, Fridays) #Hyperkalemia, resolved #Hypomagnesemia, resolved #Volume overload #Hypervolemic hyponatremia #Anemia of the chronic kidney disease Nephrology on board, reviewed Hemodialysis today as per schedule Wednesday Continue Bumex 2 mg p.o. daily Renal diet Order CBC and CMP tomorrow a.m. Avoid nephrotoxic drugs Continue to hold losartan Replace magnesium as needed #New onset A-fib with the RVR Cardiology on board, note reviewed Patient on oral amiodarone Switch Lopressor from 50 twice daily to 50 p.o. 3 times daily On Eliquis 5 mg p.o. twice daily Continue cardiac telemetry No plans for cardioversion at this time #Elevated NT-proBNP #Elevated troponin I likely secondary to type II NSTEMI Echocardiogram revealed ejection fraction of 60 to 65% with no regional wall abnormalities. Cardiology on board, note reviewed, amlodipine 5 mg twice daily added for optim al pressure control Continue with Bumex 2 g once daily #Hypertension Blood pressure continue to be soft Hold hypertensive medications #Hyperglycemia Start patient on Lantus 7 unit subcu morning Continue with sliding scale insulin Monitor for hypoglycemia #Transaminitis Continue to monitor Chronic: COPD/asthma: Resume currently under, Pulmicort GERD: Resume pantoprazole 40 mg once daily DVT prophylaxis: Subcu heparin GI prophylaxis: None F: None E: Replete as needed N: Heart healthy diet A: Ambulatory at baseline CODE STATUS: Full code Objective - Vital Signs Vital signs: Vital Signs Temp 98.4 F 07/16/24 11:25 Pulse 104 H 07/16/24 11:25 Resp 16 07/16/24 11:25 BP 144/80 07/16/24 11:25 Pulse Ox 99 07/16/24 11:25 FiO2 32 07/15/24 20:40 Intake & Output 07/15/24 07/16/24 07/16/24 18:59 06:59 18:59 Intake Total 1245 300 Output Total 2 1 Balance 1243 299 Weight 87 kg Intake: Oral 1245 300 Output: Stool 2 1 Other: Voiding Method External Catheter Diaper Diaper Incontinent Incontinent # Voids 0 # Bowel Movements 1 1 - Labs CBC & Chem 7: 07/15/24 05:35 07/16/24 07:50 Labs: Abnormal Lab Results - Last 24 Hours (Table) 07/15/24 07/15/24 07/16/24 Range/Units 16:31 20:03 06:21 Sodium (137-145) mmol/L Potassium (3.5-5.1) mmol/L Chloride (98-107) mmol/L BUN (7-17) mg/dL Creatinine (0.52-1.04) mg/dL Glucose (74-99) mg/dL POC Glucose (mg/dL) 127 H 166 H 121 H (70-110) mg/dL 07/16/24 07/16/24 Range/Units 07:50 11:02 Sodium 126 L (137-145) mmol/L Potassium 5.2 H (3.5-5.1) mmol/L Chloride 85 L (98-107) mmol/L BUN 76 H (7-17) mg/dL Creatinine 6.31 H (0.52-1.04) mg/dL Glucose 105 H (74-99) mg/dL POC Glucose (mg/dL) 169 H (70-110) mg/dL Microbiology - Last 24 Hours (Table) 07/10/24 04:29 Blood Culture - Final Blood
--- NOTE | 2024-07-16 16:09 | P.PN ---
Subjective Progress Note Date: 07/16/24 This is a 69-year-old female patient of Dr. Mancuso with past medical history of hypertension, hyperlipidemia, carotid artery stenosis status post bilateral carotid endarterectomy, prior stroke, end-stage renal disease on hemodialysis, relatively normal heart catheterization performed at [facility] 5 years ago. We have been asked to evaluate the patient for elevated troponin. Patient states that she is feeling better now. She states that she came into the hospital because her stomach was hurting. She denies chest pain. She states she chronically has shortness of breath and is on home oxygen. According to the ER documentation, patient came in due to altered mental status and hypertension. Blood pressure 168/66, heart rate 66, pulse ox 97% on 2 L nasal cannula. Patient has been started on IV antibiotics. -EKG: Sinus rhythm with no acute ST changes -Chest x-ray: Left pleural effusion with adjacent atelectasis and/or pneumonia not excluded. -Laboratory studies: WBC 17.9, hemoglobin 13.1, potassium 6.3, BUN 77 creatinine 6.07, sodium 134. Troponin 0.144 and 0. 174. proBNP 26,100. -Home cardiac medications: Aspirin 81 mg daily, atorvastatin 20 mg at bedtime, Bumex 5 mg daily, Coreg 12.5 mg twice daily, losartan 50 mg at bedtime. -Echocardiogram performed at [facility] on 07/07/2023 revealed technically difficult study, normal LV systolic function. Mild mitral stenosis and mild mitral regurgitation. Aortic sclerosis with mild aortic stenosis. Severe pulmonary hypertension. -Lexiscan Cardiolite stress test performed in the office in 09/2021 revealed normal Lexiscan stress test without inducible ischemia. Normal myocardial perfusion. EF 55%. 07/11/2024 Patient examined this morning at the bedside. Patient currently denies chest pain or pressure. Denies shortness of breath. Patient underwent hemodialysis yesterday. Echocardiogram completed revealing ejection fraction 60 to 65%, no obvious regional wall motion abnormalities, mild to moderate mitral stenosis, trace mitral regurgitation, trace tricuspid regurgitation. Blood pressure is elevated with a systolic between [id number]. 07/12 Patient seen and examined. Cardiology signed off yesterday after echocardiogram was obtained. Patient subsequently went into A-fib with RVR and was transferred to the cardiac stepdown unit and started on heparin drip and Cardizem drip currently at 10 mg/h. Heart rate remains elevated in the 130s. She is scheduled for hemodialysis this morning. Blood pressure 138/66. Repeat blood work reveals hemoglobin 10.3, sodium 130, potassium 3.7, BUN 44 creatinine 4.56. TSH 1.55. Chest x-ray reveals mild cardiomegaly with mild bibasilar interstitial edema remains present. No significant change. 07/13 Cardizem drip was discontinued and patient started on amiodarone drip. She is also on a heparin drip. Heart rate is running 109-120 in atrial fibrillation. blood pressure 104/69, pulse ox 95% on BiPAP. Patient is quite tired at the time of evaluation. Her next dialysis is scheduled for tomorrow. 07/14 Patient seen and examined. Patient remains in atrial fibrillation running in the low 100s, blood pressure 106/74. Patient has been maintained on amiodarone drip at 1 mg/h for the past 24 hours. Patient is also on heparin drip which we will transition to Eliquis today. Patient is receiving hemodialysis this morning. 07/15/2024 Seen and examined at bedside this a.m patient continues to be in atrial fibrillation and low heart rates, blood pressure is controlled Still continues to be mildly volume overloaded, 07/16/2024 Continues to be related to atrial fibrillation,, having difficulty in swallowing with concerns of possible aspiration, appears to be very weak, plan for hemodialysis tomorrow PHYSICAL EXAM: VITAL SIGNS: Reviewed. GENERAL: Well-developed in no acute distress. NECK: Supple. No JVD or thyromegaly LUNGS: Respirations even and unlabored. Lungs essentially clear to auscultation bilaterally. HEART: Regular rate and rhythm. S1 and S2 heard. EXTREMITIES: No clubbing or cyanosis. Peripheral pulses intact. No lower extremity edema ASSESSMENT: Metabolic encephalopathy Elevated troponin secondary to poor renal clearance and infection, no evidence of myocardial injury or ischemia New onset paroxysmal atrial fibrillation with RVR Leukocytosis Hyperkalemia Hypertension Hyperlipidemia Carotid artery stenosis status post bilateral carotid endarterectomy History of CVA End-stage renal disease on hemodialysis Chronic hypoxic respiratory failure on home O2 PLAN: Continue cardiac medications: Aspirin 81 mg daily, atorvastatin 20 mg at be dtime, Bumex 2 mg daily Continue metoprolol tartrate 50 mg twice daily Continue p.o. amiodarone and Eliquis No plan for cardioversion at this time Plan for hemodialysis tomorrow Overall prognosis very poor Objective - Vital Signs Vital signs: Vital Signs Temp 98.4 F 07/16/24 11:25 Pulse 100 07/16/24 15:46 Resp 16 07/16/24 11:25 BP 144/80 07/16/24 11:25 Pulse Ox 99 07/16/24 11:25 FiO2 32 07/15/24 20:40 Intake & Output 07/15/24 07/16/24 07/16/24 18:59 06:59 18:59 Intake Total 1245 300 Output Total 2 1 Balance 1243 299 Weight 87 kg Intake: Oral 1245 300 Output: Stool 2 1 Other: Voiding Method External Catheter Diaper Diaper Incontinent Incontinent # Voids 0 # Bowel Movements 1 1 - Labs CBC & Chem 7: 07/15/24 05:35 07/16/24 07:50 Labs: Abnormal Lab Results - Last 24 Hours (Table) 07/15/24 07/15/24 07/16/24 Range/Units 16:31 20:03 06:21 Sodium (137-145) mmol/L Potassium (3.5-5.1) mmol/L Chloride (98-107) mmol/L BUN (7-17) mg/dL Creatinine (0.52-1.04) mg/dL Glucose (74-99) mg/dL POC Glucose (mg/dL) 127 H 166 H 121 H (70-110) mg/dL 07/16/24 07/16/24 Range/Units 07:50 11:02 Sodium 126 L (137-145) mmol/L Potassium 5.2 H (3.5-5.1) mmol/L Chloride 85 L (98-107) mmol/L BUN 76 H (7-17) mg/dL Creatinine 6.31 H (0.52-1.04) mg/dL Glucose 105 H (74-99) mg/dL POC Glucose (mg/dL) 169 H (70-110) mg/dL Microbiology - Last 24 Hours (Table) 07/10/24 04:29 Blood Culture - Final Blood
[2024-07-16 16:34] LABS: Glucose,Whole Blood 157 mg/dL (70-110)
[2024-07-16 20:49] LABS: Glucose,Whole Blood 122 mg/dL (70-110)
[2024-07-17 06:17] LABS: Glucose,Whole Blood 107 mg/dL (70-110)
[2024-07-17 06:35] LABS: HCT 30.2 % (37.2-46.3); HGB 9.8 g/dL (12.0-15.0); Immature Platelet Fraction 3.1 % (1.1-6.1); MCHC 32.5 g/dL (32.0-37.0); MCV 89.3 fL (80.0-97.0); Mean Platelet Volume 10.1 fL (9.5-12.2); Platelet Count 142 10*3/uL (140-440); RBC 3.38 10*6/uL (4.10-5.20); RDW 15.9 % (11.5-14.5); WBC 5.76 10*3/uL (4.50-10.00)
[2024-07-17 06:57] LABS: Anion Gap 19 mmol/L; Blood Urea Nitrogen 98 mg/dL (7-17); Calcium 9.2 mg/dL (8.4-10.2); Carbon Dioxide 22 mmol/L (22-30); Chloride 84 mmol/L (98-107); Glucose 92 mg/dL (74-99); Potassium 5.5 mmol/L (3.5-5.1); Sodium 125 mmol/L (137-145)
[2024-07-17 07:03] LABS: African American GFR (CKD) 6 (>60 ml/min/1.73 sqM); Non-African American GFR(CKD) 6 (>60 ml/min/1.73 sqM)
--- NOTE | 2024-07-17 10:44 | P.PN ---
Subjective HISTORY OF PRESENT ILLNESS: This is a 69-year-old female patient of Dr. Mancuso with past medical history of hypertension, hyperlipidemia, carotid artery stenosis status post bilateral carotid endarterectomy, prior stroke, end-stage renal disease on hemodialysis, relatively normal heart catheterization performed at [facility] 5 years ago. We have been asked to evaluate the patient for elevated troponin. Patient states that she is feeling better now. She states that she came into the hospital because her stomach was hurting. She denies chest pain. She states she chronically has shortness of breath and is on home oxygen. According to the ER documentation, patient came in due to altered mental status and hypertension. Blood pressure 168/66, heart rate 66, pulse ox 97% on 2 L nasal cannula. Patient has been started on IV antibiotics. -EKG: Sinus rhythm with no acute ST changes -Chest x-ray: Left pleural effusion with adjacent atelectasis and/or pneumonia not excluded. -Laboratory studies: WBC 17.9, hemoglobin 13.1, potassium 6.3, BUN 77 creatinine 6.07, sodium 134. Troponin 0.144 and 0. 174. proBNP 26,100. -Home cardiac medications: Aspirin 81 mg daily, atorvastatin 20 mg at bedtime, Bumex 5 mg daily, Coreg 12.5 mg twice daily, losartan 50 mg at bedtime. -Echocardiogram performed at [facility] on 07/07/2023 revealed technically difficult study, normal LV systolic function. Mild mitral stenosis and mild mitral re gurgitation. Aortic sclerosis with mild aortic stenosis. Severe pulmonary hypertension. -Lexiscan Cardiolite stress test performed in the office in 09/2021 revealed normal Lexiscan stress test without inducible ischemia. Normal myocardial perfusion. EF 55%. 07/11/2024 Patient examined this morning at the bedside. Patient currently denies chest pain or pressure. Denies shortness of breath. Patient underwent hemodialysis yesterday. Echocardiogram completed revealing ejection fraction 60 to 65%, no obvious regional wall motion abnormalities, mild to moderate mitral stenosis, trace mitral regurgitation, trace tricuspid regurgitation. Blood pressure is elevated with a systolic between [id number]. 07/12 Patient seen and examined. Cardiology signed off yesterday after echocardiogram was obtained. Patient subsequently went into A-fib with RVR and was transferred to the cardiac stepdown unit and started on heparin drip and Cardizem drip currently at 10 mg/h. Heart rate remains elevated in the 130s. She is scheduled for hemodialysis this morning. Blood pressure 138/66. Repeat blood work reveals hemoglobin 10.3, sodium 130, potassium 3.7, BUN 44 creatinine 4.56. TSH 1.55. Chest x-ray reveals mild cardiomegaly with mild bibasilar interstitial edema remains present. No significant change. 07/13 Cardizem drip was discontinued and patient started on amiodarone drip. She is also on a heparin drip. Heart rate is running 109-120 in atrial fibrillation. blood pressure 104/69, pulse ox 95% on BiPAP. Patient is quite tired at the time of evaluation. Her next dialysis is scheduled for tomorrow. 07/13 Patient seen and examined. Patient remains in atrial fibrillation running in th e low 100s, blood pressure 106/74. Patient has been maintained on amiodarone drip at 1 mg/h for the past 24 hours. Patient is also on heparin drip which we will transition to Eliquis today. Patient is receiving hemodialysis this morning. 07/14 Patient seen and examined. Patient remains in atrial fibrillation running in the low 100s, blood pressure 106/74. Patient has been maintained on amiodarone drip at 1 mg/h for the past 24 hours. Patient is also on heparin drip which we will transition to Eliquis today. Patient is receiving hemodialysis this morning. 07/15/2024 Seen and examined at bedside this a.m patient continues to be in atrial fibrillation and low heart rates, blood pressure is controlled Still continues to be mildly volume overloaded, 07/16/2024 Continues to be related to atrial fibrillation,, having difficulty in swallowing with concerns of possible aspiration, appears to be very weak, plan for hemodialysis tomorrow 07/17/2024 Patient examined this morning at the bedside. Patient currently denies chest pain or pressure. She denies shortness of breath. Patient states she is scheduled to have hemodialysis today. Telemetry reveals atrial fibrillation/flutter with controlled ventricular rates. PHYSICAL EXAM: VITAL SIGNS: Reviewed. GENERAL: Well-developed in no acute distress. NECK: Supple. No JVD or thyromegaly LUNGS: Respirations even and unlabored. Lungs essentially clear to auscultation bilaterally. HEART: Irregular rate and rhythm. S1 and S2 heard. EXTREMITIES: Normal range of motion. No clubbing or cyanosis. Peripheral pulses intact. No lower extremity edema ASSESSMENT: Metabolic encephalopathy Elevated troponin secondary to poor renal clearance and infection, no evidence of myocardial injury or ischemia Leukocytosis Hyperkalemia Hypertension Hyperlipidemia Carotid artery stenosis status post bilateral carotid endarterectomy History of CVA End-stage renal disease on hemodialysis Chronic hypoxic respiratory failure on home O2 PLAN: Continue current cardiac medications including amiodarone, Eliquis, aspirin, Lipitor, Bumex, metoprolol Decrease amiodarone to 200 mg daily starting on 07/22/2024 No further inpatient recommendations from a cardiac standpoint We will sign off. Please reconsult if needed. Nurse practitioner note has been reviewed by physician. Signing provider agrees with the documented findings, assessment, and plan of care documented by WIRE MACHINE OPERATOR as a scribe. Objective - Vital Signs Vital signs: Vital Signs Temp 97.6 F 07/17/24 07:59 Pulse 68 07/17/24 09:37 Resp 16 07/17/24 07:59 BP 154/79 07/17/24 07:59 Pulse Ox 94 L 07/17/24 07:59 FiO2 32 07/15/24 20:40 Intake & Output 07/16/24 07/17/24 07/17/24 18:59 06:59 18:59 Intake Total 300 Output Total 2 0 Balance 298 0 Weight 90 kg Intake: Oral 300 Output: Urine 0 Stool 2 Other: Voiding Method Diaper Diaper Incontinent Incontinent # Voids 0 - Labs CBC & Chem 7: 07/17/24 06:04 07/17/24 06:04 Labs: Abnormal Lab Results - Last 24 Hours (Table) 07/16/24 07/16/24 07/16/24 Range/Units 11:02 16:33 20:48 RBC (4.10-5.20) 10*6/uL Hgb (12.0-15.0) g/dL Hct (37.2-46.3) % Sodium (137-145) mmol/L Potassium (3.5-5.1) mmol/L Chloride (98-107) mmol/L BUN (7-17) mg/dL Creatinine (0.52-1.04) mg/dL POC Glucose (mg/dL) 169 H 157 H 122 H (70-110) mg/dL 05/12/25 05/12/25 Range/Units 06:04 06:04 RBC 3.38 L (4.10-5.20) 10*6/uL Hgb 9.8 L (12.0-15.0) g/dL Hct 30.2 L (37.2-46.3) % Sodium 125 L (137-145) mmol/L Potassium 5.5 H (3.5-5.1) mmol/L Chloride 84 L (98-107) mmol/L BUN 98 H (7-17) mg/dL Creatinine 6.89 H (0.52-1.04) mg/dL POC Glucose (mg/dL) (70-110) mg/dL
[2024-07-17 11:36] LABS: Glucose,Whole Blood 125 mg/dL (70-110)
--- NOTE | 2024-07-17 12:28 | P.PN ---
Subjective Patient is seen for follow-up for end-stage renal disease. Scheduled for hemodialysis today No significant shortness of breath. Objective - Vital Signs Vital signs: Vital Signs Temp 97.6 F 07/17/24 07:59 Pulse 64 07/17/24 11:51 Resp 16 07/17/24 07:59 BP 154/79 07/17/24 07:59 Pulse Ox 94 L 07/17/24 07:59 FiO2 32 07/15/24 20:40 Intake & Output 07/16/24 07/17/24 07/17/24 18:59 06:59 18:59 Intake Total 300 Output Total 2 0 Balance 298 0 Weight 90 kg Intake: Oral 300 Output: Urine 0 Stool 2 Other: Voiding Method Diaper Diaper Incontinent Incontinent # Voids 0 - Exam Patient is awake, comfortable, no acute distress Examination of the heart S1 and S2 Examination of the lungs bilateral breath sounds are heard Abdomen is soft nontender Examination of lower extremities shows chronic skin changes with 1+ edema - Labs CBC & Chem 7: 07/17/24 06:04 07/17/24 06:04 Labs: Abnormal Lab Results - Last 24 Hours (Table) 07/16/24 07/16/24 07/17/24 Range/Units 16:33 20:48 06:04 RBC 3.38 L (4.10-5.20) 10*6/uL Hgb 9.8 L (12.0-15.0) g/dL Hct 30.2 L (37.2-46.3) % Sodium (137-145) mmol/L Potassium (3.5-5.1) mmol/L Chloride (98-107) mmol/L BUN (7-17) mg/dL Creatinine (0.52-1.04) mg/dL POC Glucose (mg/dL) 157 H 122 H (70-110) mg/dL 07/17/24 07/17/24 Range/Units 06:04 11:34 RBC (4.10-5.20) 10*6/uL Hgb (12.0-15.0) g/dL Hct (37.2-46.3) % Sodium 125 L (137-145) mmol/L Potassium 5.5 H (3.5-5.1) mmol/L Chloride 84 L (98-107) mmol/L BUN 98 H (7-17) mg/dL Creatinine 6.89 H (0.52-1.04) mg/dL POC Glucose (mg/dL) 125 H (70-110) mg/dL Assessment and Plan Assessment: 1. End-stage renal disease maintained on hemodialysis on Wednesday schedule. 2. Hyperkalemia secondary to chronic kidney disease. Resolved. Losartan held 3. Volume overload. Better with ultrafiltration. 4. Diabetes mellitus. 5. Hypertension with chronic kidney disease. 6. Chronic kidney disease mineral bone disease. 7. Mild to moderate mitral stenosis noted on echocardiogram. Preserved EF. 8. A-fib with RVR status post amiodarone drip. Cardiology following. Plan: Continue with Bumex Hemodialysis today with UF of 2 to 3 L as tolerated.
--- NOTE | 2024-07-17 15:14 | P.PN ---
Subjective Progress Note Date: 07/17/24 Hospital Course: Patient is a 69-year-old female with a history of multiple comorbidities including ESRD on hemodialysis on Mondays, Wednesdays and Fridays was brought to the ER via EMS from [facility] with complaints of altered mental status and hypertension since yesterday. Chest x-ray done in the ER shows concern for left-sided pleural effusion with pneumonia. Patient was started on IV levofloxacin. Patient reports that she has been feeling mild shortness of breath but no cough. Patient denies any sick contacts. Patient denies chest pain, fever, chills, nausea, vomiting but admits to being generally weak and fatigued. Her lab work in the ER shows WBC 17.92, hemoglobin 13.1, platelet count 136, neutrophil count 16.72, sodium 134, potassium 6.3, chloride 93, BUN 37, creatinine 6.07, glucose 260, lactic acid 1.6, EGFR 7, magnesium 1.3, AST 50, ALT 48, troponin I 0.144, repeat troponin I 0.174, NT proBNP 01490. Vital signs on arrival shows temperature 98.2 F, pulse rate 64, respirate 18, blood pressure 164/63, oxygen saturation 94% on 2 L via nasal cannula. EKG shows ventricular rate of 61 bpm, DE interval 169 ms, QRS duration of 100 ms, QTc of 462. Nonspecific ST-T wave changes noted. Tall T waves noted diffusely. Of note, patient states that she is not oxygen dependent Subjective: Patient seen and examined at the bedside.. No acute events overnight. Patient to undergo dialysis as per schedule today. Patient denies chest pain, shortness of breath, headaches, dizziness, nausea, vomiting, numbness or tingling upper or lower extremities. There was concern for aspiration over the weekend. Speech therapy was consulted for swallowing evaluation. Barium swallow study has been ordered. In the meantime patient to continue with soft diet to decrease the risk for aspiration. All Systems reviewed and pertinent positives and negatives noted in HPI, all other symptoms are negative Objective: Physical examination: Vital signs reviewed General: non toxic, no distress, appears at stated age, overweight Derm: no unusual rashes/lesions, warm, AV fistula on the left arm functioning well, venous stasis dermatitis bilaterally Head: atraumatic, normocephalic, symmetric Eyes: EOMI, no lid lag, anicteric sclera, pupils equal round reactive to light ENT: Nose and ears atraumatic Neck: No cervical lymphadenopathy, trachea midline, supple Mouth: no lip lesion, mucus membranes moist Cardiovascular: S1S2 reg, no murmur, positive dorsalis pedis pulse bilateral, 2+ pitting edema Lungs: Bilateral crackles noted, no rhonchi, no rales, no accessory muscle use Abdominal: soft, nontender to palpation, no guarding Ext: muscle strength 5 out of 5 in all 4 extremities grossly, no gross muscle atrophy, no contractures, Neuro: CN II-XI grossly intact, no gross focal neuro deficits Psych: Alert, oriented, appropriate affect Data reviewed today: Labs: WBC 5.76, hemoglobin 9.8, sodium 125 potassium 5.5, BUN 98, creatinine 6.89, glucose 125, calcium 9.8 Images: No new imaging Assessment and Plan: #Continues risk for aspiration No focal neurological deficit Speech therapy on board for swallow evaluation Barium swallow study to be done #Community-acquired pneumonia, patient completed course of antibiotics #Chronic hypoxic respiratory failure on 2 L oxygen at home #Altered mental status, improved Blood culture is negative, sputum culture pending Patient completed 5 days of antibiotic Continue with oxygen supplementation as needed Continue DuoNebs as scheduled and [id number] #ESRD on hemodialysis (Mondays, Wednesdays, Fridays) #Hyperkalemia #Hypomagnesemia, resolved #Volume overload #Hypervolemic hyponatremia #Anemia of the chronic kidney disease Nephrology on board, reviewed Hemodialysis today as per schedule today Continue Bumex 2 mg p.o. daily Renal diet Order CBC and CMP tomorrow a.m. Avoid nephrotoxic drugs Continue to hold losartan Replace magnesium as needed #New onset A-fib with the RVR Cardiology on board, note reviewed Patient on oral amiodarone Continue Lopressor 50 mg 3 times daily On Eliquis 5 mg p.o. twice daily Continue cardiac telemetry No plans for cardioversion at this time #Elevated NT-proBNP #Elevated troponin I likely secondary to type II NSTEMI Echocardiogram revealed ejection fraction of 60 to 65% with no regional wall abnormalities. Cardiology on board, note reviewed, amlodipine 5 mg twice daily added for optimal pressure control Continue with Bumex 2 g once daily #Hypertension Blood pressure continue to be soft Hold hypertensive medications #Hyperglycemia Start patient on Lantus 7 unit subcu morning Continue with sliding scale insulin Monitor for hypoglycemia #Transaminitis Continue to monitor Chronic: COPD/asthma: Resume currently under, Pulmicort GERD: Resume pantoprazole 40 mg once daily DVT prophylaxis: Subcu heparin GI prophylaxis: None F: None E: Replete as needed N: Heart healthy diet A: Ambulatory at baseline CODE STATUS: Full code Discussed with: Patient Anticipated discharge place: Pending clinical course Dictation was produced using [employer] dictation software. Please excuse any grammatical, word or spelling errors. Objective - Vital Signs Vital signs: Vital Signs Temp 97.6 F 07/17/24 07:59 Pulse 64 07/17/24 11:51 Resp 16 07/17/24 07:59 BP 154/79 07/17/24 07:59 Pulse Ox 94 L 07/17/24 07:59 FiO2 32 07/15/24 20:40 Intake & Output 07/16/24 07/17/24 07/17/24 18:59 06:59 18:59 Intake Total 300 110 Output Total 2 0 Balance 298 0 110 Weight 90 kg Intake: Oral 300 110 Output: Urine 0 Stool 2 Other: Voiding Method Diaper Diaper Incontinent Incontinent # Voids 0 - Labs CBC & Chem 7: 07/17/24 06:04 07/17/24 06:04 Labs: Abnormal Lab Results - Last 24 Hours (Table) 07/16/24 07/16/24 07/17/24 Range/Units 16:33 20:48 06:04 RBC 3.38 L (4.10-5.20) 10*6/uL Hgb 9.8 L (12.0-15.0) g/dL Hct 30.2 L (37.2-46.3) % Sodium (137-145) mmol/L Potassium (3.5-5.1) mmol/L Chloride (98-107) mmol/L BUN (7-17) mg/dL Creatinine (0.52-1.04) mg/dL POC Glucose (mg/dL) 157 H 122 H (70-110) mg/dL 07/17/24 07/17/24 Range/Units 06:04 11:34 RBC (4.10-5.20) 10*6/uL Hgb (12.0-15.0) g/dL Hct (37.2-46.3) % Sodium 125 L (137-145) mmol/L Potassium 5.5 H (3.5-5.1) mmol/L Chloride 84 L (98-107) mmol/L BUN 98 H (7-17) mg/dL Creatinine 6.89 H (0.52-1.04) mg/dL POC Glucose (mg/dL) 125 H (70-110) mg/dL
[2024-07-17 16:55] LABS: Glucose,Whole Blood 108 mg/dL (70-110)
[2024-07-17 20:20] LABS: Glucose,Whole Blood 231 mg/dL (70-110)
[2024-07-18 06:04] LABS: Glucose,Whole Blood 128 mg/dL (70-110)
[2024-07-18 07:37] LABS: Basophils # (A) 0.04 10*3/uL (0.00-0.10); Basophils % (A) 0.8 %; Eosinophils # (A) 0.13 10*3/uL (0.04-0.35); Eosinophils % (A) 2.4 %; HCT 32.3 % (37.2-46.3); HGB 10.2 g/dL (12.0-15.0); Lymphocytes # (A) 0.54 10*3/uL (0.90-5.00); Lymphocytes % (A) 10.2 %; MCH 28.7 pg (27.0-32.0); MCHC 31.6 g/dL (32.0-37.0); Mean Platelet Volume 10.2 fL (9.5-12.2); Monocytes # (A) 0.44 10*3/uL (0.20-1.00); Monocytes % (A) 8.3 %; Neutrophils # (A) 4.11 10*3/uL (1.80-7.70); Neutrophils % (A) 77.4 %; Platelet Count 161 10*3/uL (140-440); RBC 3.55 10*6/uL (4.10-5.20); RDW 15.7 % (11.5-14.5); WBC 5.31 10*3/uL (4.50-10.00)
[2024-07-18 07:53] LABS: African American GFR (CKD) 11 (>60 ml/min/1.73 sqM); Anion Gap 11 mmol/L; Blood Urea Nitrogen 57 mg/dL (7-17); Calcium 8.8 mg/dL (8.4-10.2); Carbon Dioxide 28 mmol/L (22-30); Chloride 91 mmol/L (98-107); Glucose 78 mg/dL (74-99); Magnesium 1.7 mg/dL (1.6-2.3); Non-African American GFR(CKD) 10 (>60 ml/min/1.73 sqM); Potassium 4.7 mmol/L (3.5-5.1); Sodium 130 mmol/L (137-145)
[2024-07-18 11:33] LABS: Glucose,Whole Blood 162 mg/dL (70-110)
--- NOTE | 2024-07-18 11:53 | FL ---
EXAMINATION TYPE: FL barium swallow w video DATE OF EXAM: 07/18/2024 MODIFIED SWALLOW / DEGLUTITION STUDY CLINICAL HISTORY: Dysphagia. Rule out silent aspiration. COPD. TECHNIQUE: Deglutition study is performed utilizing thin liquid barium, honey and nectar thick liqui d barium, barium thick pudding, and barium coated cracker. 1 minute 47 seconds of fluoro time and 1 images obtained. Total dose area product (DAP) in uGy*m?, mGy*cm? (or similar): 281.98 COMPARISON: None. FINDINGS: The oral and pharyngeal phases show satisfactory initiation and propagation with all modali ties tested. Normal mastication is seen with solid modalities tested. There is no evidence of penet ration or aspiration with any modality tested. No significant pharyngeal residue was appreciated. IMPRESSION: No aspiration seen. Please refer to speech therapist notes for further details if necess lupe. [facility], , 07/18/2024 11:51 AM
--- NOTE | 2024-07-18 13:15 | P.PN ---
Subjective Progress Note Date: 07/18/24 Hospital Course: Patient is a 69-year-old female with a history of multiple comorbidities including ESRD on hemodialysis on Mondays, Wednesdays and Fridays was brought to the ER via EMS from [facility] with complaints of altered mental status and hypertension since yesterday. Chest x-ray done in the ER shows concern for left-sided pleural effusion with pneumonia. Patient was started on IV levofloxacin. Patient reports that she has been feeling mild shortness of breath but no cough. Patient denies any sick contacts. Patient denies chest pain, fever, chills, nausea, vomiting but admits to being generally weak and fatigued. Her lab work in the ER shows WBC 17.92, hemoglobin 13.1, platelet count 136, neutrophil count 16.72, sodium 134, potassium 6.3, chloride 93, BUN 37, creatinine 6.07, glucose 260, lactic acid 1.6, EGFR 7, magnesium 1.3, AST 50, ALT 48, troponin I 0.144, repeat troponin I 0.174, NT proBNP 25880. Vital signs on arrival shows temperature 98.2 F, pulse rate 64, respirate 18, blood pressure 164/63, oxygen saturation 94% on 2 L via nasal cannula. EKG shows ventricular rate of 61 bpm, NM interval 169 ms, QRS duration of 100 ms, QTc of 462. Nonspecific ST-T wave changes noted. Tall T waves noted diffusely. Of note, patient states that she is not oxygen dependent Subjective: Patient seen and examined at the bedside.. No acute events overnight. Patient to undergo dialysis as per schedule yesterday. Patient denies chest pain, shortness of breath, headaches, dizziness, nausea, vomiting, numbness or tingling upper or lower extremities. There was concern for aspiration over the weekend. Speech therapy was consulted for swallowing evaluation. Barium swallow study was performed today and test was unremarkable. Patient has been able to eat her meals without any difficulty. Blood work today shows WBC 5.3, hemoglobin 10.2, sodium 130, BUN 57, creatinine 4.4. Anticipating discharge tomorrow as patient will be returning to nursing facility. All Systems reviewed and pertinent positives and negatives noted in HPI, all other symptoms are negative Objective: Physical examination: Vital signs reviewed General: non toxic, no distress, appears at stated age, overweight Derm: no unusual rashes/lesions, warm, AV fistula on the left arm functioning well, venous stasis dermatitis bilaterally Head: atraumatic, normocephalic, symmetric Eyes: EOMI, no lid lag, anicteric sclera, pupils equal round reactive to light ENT: Nose and ears atraumatic Neck: No cervical lymphadenopathy, trachea midline, supple Mouth: no lip lesion, mucus membranes moist Cardiovascular: S1S2 reg, no murmur, positive dorsalis pedis pulse bilateral, 2+ pitting edema Lungs: Bilateral crackles noted, no rhonchi, no rales, no accessory muscle use Abdominal: soft, nontender to palpation, no guarding Ext: muscle strength 5 out of 5 in all 4 extremities grossly, no gross muscle atrophy, no contractures, Neuro: CN II-XI grossly intact, no gross focal neuro deficits Psych: Alert, oriented, appropriate affect Assessment and Plan: # Aspiration risk, normal barium swallow test, currently low risk No focal neurological deficit Speech therapy on board for swallow evaluation Patient has been able to eat food without much difficulty #Community-acquired pneumonia, patient completed course of antibiotics #Chronic hypoxic respiratory failure on 2 L oxygen at home #Altered mental status, improved Blood culture is negative, sputum culture pending Patient completed 5 days of antibiotic Continue with oxygen supplementation as needed Continue DuoNebs as scheduled and [id number] #ESRD on hemodialysis (Mondays, Wednesdays, Fridays) #Hyperkalemia #Hypomagnesemia, resolved #Volume overload #Hypervolemic hyponatremia #Anemia of the chronic kidney disease Nephrology on board, reviewed Hemodialysis today as per schedule today Continue Bumex 2 mg p.o. daily Renal diet Order CBC and CMP tomorrow a.m. Avoid nephrotoxic drugs Continue to hold losartan Replace magnesium as needed #New onset A-fib with the RVR Cardiology on board, note reviewed Patient on oral amiodarone Continue Lopressor 50 mg 3 times daily On Eliquis 5 mg p.o. twice daily Continue cardiac telemetry No plans for cardioversion at this time #Elevated NT-proBNP #Elevated troponin I likely secondary to type II NSTEMI Echocardiogram revealed ejection fraction of 60 to 65% with no regional wall abnormalities. Cardiology on board, note reviewed, amlodipine 5 mg twice daily added for optimal pressure control Continue with Bumex 2 g once daily #Hypertension Blood pressure continue to be soft Hold hypertensive medications #Hyperglycemia Start patient on Lantus 7 unit subcu morning Continue with sliding scale insulin Monitor for hypoglycemia #Transaminitis Continue to monitor Chronic: COPD/asthma: Resume currently under, Pulmicort GERD: Resume pantoprazole 40 mg once daily DVT prophylaxis: Subcu heparin GI prophylaxis: None F: None E: Replete as needed N: Heart healthy diet A: Ambulatory at baseline CODE STATUS: Full code Discussed with: Patient Anticipated discharge place: Pending clinical course Dictation was produced using [employer] dictation software. Please excuse any grammatical, word or spelling errors. Objective - Vital Signs Vital signs: Vital Signs Temp 98.3 F 07/18/24 12:00 Pulse 112 H 07/18/24 12:15 Resp 18 07/18/24 12:00 BP 128/74 07/18/24 12:00 Pulse Ox 98 07/18/24 12:00 FiO2 32 07/15/24 20:40 Intake & Output 07/17/24 07/18/24 07/18/24 18:59 06:59 18:59 Intake Total 1010 20 118 Output Total 5400 1 Balance -4390 19 118 Weight 78.5 kg Intake: IV 20 Invasive Line 5 20 Oral 610 118 Hemodialysis 400 Output: Urine 0 0 Stool 1 Hemodialysis 2900 Hemodialysis Net Amount 2500 Other: Voiding Method Diaper Diaper Incontinent Incontinent # Voids 0 # Bowel Movements 0 1 - Labs CBC & Chem 7: 07/18/24 06:58 07/18/24 06:58 Labs: Abnormal Lab Results - Last 24 Hours (Table) 07/17/24 07/18/24 07/18/24 Range/Units 20:19 06:03 06:58 RBC 3.55 L (4.10-5.20) 10*6/uL Hgb 10.2 L (12.0-15.0) g/dL Hct 32.3 L (37.2-46.3) % MCHC 31.6 L (32.0-37.0) g/dL Immature Gran # 0.05 H (0.00-0.04) 10*3/uL Lymphocytes # 0.54 L (0.90-5.00) 10*3/uL Sodium (137-145) mmol/L Chloride (98-107) mmol/L BUN (7-17) mg/dL Creatinine (0.52-1.04) mg/dL POC Glucose (mg/dL) 231 H 128 H (70-110) mg/dL 07/18/24 07/18/24 Range/Units 06:58 11:31 RBC (4.10-5.20) 10*6/uL Hgb (12.0-15.0) g/dL Hct (37.2-46.3) % MCHC (32.0-37.0) g/dL Immature Gran # (0.00-0.04) 10*3/uL Lymphocytes # (0.90-5.00) 10*3/uL Sodium 130 L (137-145) mmol/L Chloride 91 L (98-107) mmol/L BUN 57 H (7-17) mg/dL Creatinine 4.40 H (0.52-1.04) mg/dL POC Glucose (mg/dL) 162 H (70-110) mg/dL
[2024-07-18 16:05] LABS: Glucose,Whole Blood 179 mg/dL (70-110)
[2024-07-18] MEDS: ALPRAZolam 0.25 MG TAB PO STA (18:33)
[2024-07-18 20:19] LABS: Glucose,Whole Blood 197 mg/dL (70-110)
--- NOTE | 2024-07-18 23:51 | P.PN ---
Subjective Patient is seen for follow-up for end-stage renal disease. Scheduled for hemodialysis in a.m. No significant shortness of breath. Objective - Vital Signs Vital signs: Vital Signs Temp 99.5 F 07/18/24 15:31 Pulse 108 H 07/18/24 15:59 Resp 18 07/18/24 15:31 BP 106/73 07/18/24 18:26 Pulse Ox 97 07/18/24 15:31 FiO2 32 07/15/24 20:40 Intake & Output 07/18/24 07/18/24 07/19/24 06:59 18:59 06:59 Intake Total 20 354 10 Output Total 1 Balance 19 354 10 Weight 78.5 kg Intake: IV 20 10 Invasive Line 5 20 10 Oral 354 Output: Urine 0 Stool 1 Other: Voiding Method Diaper Diaper Incontinent Incontinent # Voids 0 0 1 # Bowel Movements 1 1 1 - Exam Patient is awake, comfortable, no acute distress Examination of the heart S1 and S2 Examination of the lungs bilateral breath sounds are heard Abdomen is soft nontender Examination of lower extremities shows chronic skin changes with 1+ edema - Labs CBC & Chem 7: 07/18/24 06:58 07/18/24 06:58 Labs: Abnormal Lab Results - Last 24 Hours (Table) 07/18/24 07/18/24 07/18/24 Range/Units 06:03 06:58 06:58 RBC 3.55 L (4.10-5.20) 10*6/uL Hgb 10.2 L (12.0-15.0) g/dL Hct 32.3 L (37.2-46.3) % MCHC 31.6 L (32.0-37.0) g/dL Immature Gran # 0.05 H (0.00-0.04) 10*3/uL Lymphocytes # 0.54 L (0.90-5.00) 10*3/uL Sodium 130 L (137-145) mmol/L Chloride 91 L (98-107) mmol/L BUN 57 H (7-17) mg/dL Creatinine 4.40 H (0.52-1.04) mg/dL POC Glucose (mg/dL) 128 H (70-110) mg/dL 07/18/24 07/18/24 07/18/24 Range/Units 11:31 16:03 20:17 RBC (4.10-5.20) 10*6/uL Hgb (12.0-15.0) g/dL Hct (37.2-46.3) % MCHC (32.0-37.0) g/dL Immature Gran # (0.00-0.04) 10*3/uL Lymphocytes # (0.90-5.00) 10*3/uL Sodium (137-145) mmol/L Chloride (98-107) mmol/L BUN (7-17) mg/dL Creatinine (0.52-1.04) mg/dL POC Glucose (mg/dL) 162 H 179 H 197 H (70-110) mg/dL Assessment and Plan Assessment: 1. End-stage renal disease maintained on hemodialysis on Wednesday schedule. 2. Hyperkalemia secondary to chronic kidney disease. Resolved. Losartan held 3. Volume overload. Better with ultrafiltration. 4. Diabetes mellitus. 5. Hypertension with chronic kidney disease. 6. Chronic kidney disease mineral bone disease. 7. Mild to moderate mitral stenosis noted on echocardiogram. Preserved EF. 8. A-fib with RVR status post amiodarone drip. Cardiology following. Plan: Continue with Bumex Hemodialysis in a.m.
[2024-07-19 06:03] LABS: Glucose,Whole Blood 107 mg/dL (70-110)
[2024-07-19 07:14] LABS: Basophils # (A) 0.03 10*3/uL (0.00-0.10); Basophils % (A) 0.6 %; Eosinophils # (A) 0.16 10*3/uL (0.04-0.35); HCT 30.9 % (37.2-46.3); HGB 9.9 g/dL (12.0-15.0); Lymphocytes # (A) 0.72 10*3/uL (0.90-5.00); Lymphocytes % (A) 13.5 %; MCH 28.8 pg (27.0-32.0); MCV 89.8 fL (80.0-97.0); Mean Platelet Volume 9.8 fL (9.5-12.2); Monocytes # (A) 0.51 10*3/uL (0.20-1.00); Monocytes % (A) 9.5 %; Neutrophils # (A) 3.88 10*3/uL (1.80-7.70); Neutrophils % (A) 72.5 %; Platelet Count 165 10*3/uL (140-440); RBC 3.44 10*6/uL (4.10-5.20); RDW 15.5 % (11.5-14.5); WBC 5.35 10*3/uL (4.50-10.00)
[2024-07-19 07:28] LABS: African American GFR (CKD) 8 (>60 ml/min/1.73 sqM); Anion Gap 15 mmol/L; Blood Urea Nitrogen 85 mg/dL (7-17); Calcium 8.7 mg/dL (8.4-10.2); Carbon Dioxide 24 mmol/L (22-30); Chloride 89 mmol/L (98-107); Glucose 101 mg/dL (74-99); Magnesium 1.7 mg/dL (1.6-2.3); Non-African American GFR(CKD) 7 (>60 ml/min/1.73 sqM); Potassium 5.1 mmol/L (3.5-5.1); Sodium 128 mmol/L (137-145)
--- NOTE | 2024-07-19 11:10 | P.PN ---
Subjective Patient is seen for follow-up for end-stage renal disease. Scheduled for hemodialysis today No significant shortness of breath. Objective - Vital Signs Vital signs: Vital Signs Temp 97.9 F 07/19/24 08:31 Pulse 74 07/19/24 08:31 Resp 14 07/19/24 08:31 BP 135/64 07/19/24 08:31 Pulse Ox 100 07/19/24 08:31 FiO2 32 07/15/24 20:40 Intake & Output 07/18/24 07/19/24 07/19/24 18:59 06:59 18:59 Intake Total 354 20 120 Output Total 1 Balance 354 19 120 Weight 89 kg Intake: IV 20 Invasive Line 5 20 Oral 354 120 Output: Stool 1 Other: Voiding Method Diaper Diaper Incontinent Incontinent # Voids 0 1 # Bowel Movements 1 1 - Exam Patient is awake, comfortable, no acute distress Examination of the heart S1 and S2 Examination of the lungs bilateral breath sounds are heard Abdomen is soft nontender Examination of lower extremities shows chronic skin changes with 1+ edema - Labs CBC & Chem 7: 07/19/24 06:44 07/19/24 06:44 Labs: Abnormal Lab Results - Last 24 Hours (Table) 07/18/24 07/18/24 07/18/24 Range/Units 11:31 16:03 20:17 RBC (4.10-5.20) 10*6/uL Hgb (12.0-15.0) g/dL Hct (37.2-46.3) % Immature Gran # (0.00-0.04) 10*3/uL Lymphocytes # (0.90-5.00) 10*3/uL Sodium (137-145) mmol/L Chloride (98-107) mmol/L BUN (7-17) mg/dL Creatinine (0.52-1.04) mg/dL Glucose (74-99) mg/dL POC Glucose (mg/dL) 162 H 179 H 197 H (70-110) mg/dL 07/19/24 07/19/24 Range/Units 06:44 06:44 RBC 3.44 L (4.10-5.20) 10*6/uL Hgb 9.9 L (12.0-15.0) g/dL Hct 30.9 L (37.2-46.3) % Immature Gran # 0.05 H (0.00-0.04) 10*3/uL Lymphocytes # 0.72 L (0.90-5.00) 10*3/uL Sodium 128 L (137-145) mmol/L Chloride 89 L (98-107) mmol/L BUN 85 H (7-17) mg/dL Creatinine 5.48 H (0.52-1.04) mg/dL Glucose 101 H (74-99) mg/dL POC Glucose (mg/dL) (70-110) mg/dL Assessment and Plan Assessment: 1. End-stage renal disease maintained on hemodialysis on Wednesday schedule. 2. Hyperkalemia secondary to chronic kidney disease. Resolved. Losartan held 3. Volume overload. Better with ultrafiltration. 4. Diabetes mellitus. 5. Hypertension with chronic kidney disease. 6. Chronic kidney disease mineral bone disease. 7. Mild to moderate mitral stenosis noted on echocardiogram. Preserved EF. 8. A-fib with RVR status post amiodarone drip. Cardiology following. Plan: Continue with Bumex Hemodialysis today
[2024-07-19 11:25] LABS: Glucose,Whole Blood 138 mg/dL (70-110)
[2024-07-19 16:16] LABS: Glucose,Whole Blood 137 mg/dL (70-110)
--- NOTE | 2024-07-19 16:39 | P.PN ---
Subjective Progress Note Date: 07/19/24 Hospital Course: Patient is a 69-year-old female with a history of multiple comorbidities including ESRD on hemodialysis on Mondays, Wednesdays and Fridays was brought to the ER via EMS from [facility] with complaints of altered mental status and hypertension since yesterday. Chest x-ray done in the ER shows concern for left-sided pleural effusion with pneumonia. Patient was started on IV levofloxacin. Patient reports that she has been feeling mild shortness of breath but no cough. Patient denies any sick contacts. Patient denies chest pain, fever, chills, nausea, vomiting but admits to being generally weak and fatigued. Her lab work in the ER shows WBC 17.92, hemoglobin 13.1, platelet count 136, neutrophil count 16.72, sodium 134, potassium 6.3, chloride 93, BUN 37, creatinine 6.07, glucose 260, lactic acid 1.6, EGFR 7, magnesium 1.3, AST 50, ALT 48, troponin I 0.144, repeat troponin I 0.174, NT proBNP 82788. Vital signs on arrival shows temperature 98.2 F, pulse rate 64, respirate 18, blood pressure 164/63, oxygen saturation 94% on 2 L via nasal cannula. EKG shows ventricular rate of 61 bpm, NJ interval 169 ms, QRS duration of 100 ms, QTc of 462. Nonspecific ST-T wave changes noted. Tall T waves noted diffusely. Of note, patient states that she is not oxygen dependent Subjective: Patient seen and examined at the bedside.. No acute events overnight. Patient to undergo dialysis as per schedule today. Patient denies chest pain, shortness of breath, headaches, dizziness, nausea, vomiting, numbness or tingling upper or lower extremities. Lab work today shows WBC 5.35, hemoglobin 9.9, sodium 128, potassium 5.1, BUN 85, creatinine 5.48. Anticipating discharge tomorrow. All Systems reviewed and pertinent positives and negatives noted in HPI, all other symptoms are negative Objective: Physical examination: Vital signs reviewed General: non toxic, no distress, appears at stated age, overweight Derm: no unusual rashes/lesions, warm, AV fistula on the left arm functioning well, venous stasis dermatitis bilaterally Head: atraumatic, normocephalic, symmetric Eyes: EOMI, no lid lag, anicteric sclera, pupils equal round reactive to light ENT: Nose and ears atraumatic Neck: No cervical lymphadenopathy, trachea midline, supple Mouth: no lip lesion, mucus membranes moist Cardiovascular: S1S2 reg, no murmur, positive dorsalis pedis pulse bilateral, 2+ pitting edema Lungs: Bilateral crackles noted, no rhonchi, no rales, no accessory muscle use Abdominal: soft, nontender to palpation, no guarding Ext: muscle strength 5 out of 5 in all 4 extremities grossly, no gross muscle atrophy, no contractures, Neuro: CN II-XI grossly intact, no gross focal neuro deficits Psych: Alert, oriented, appropriate affect Assessment and Plan: # Aspiration risk, normal barium swallow test, currently low risk No focal neurological deficit Speech therapy on board for swallow evaluation Patient has been able to eat food without much difficulty #Community-acquired pneumonia, patient completed course of antibiotics #Chronic hypoxic respiratory failure on 2 L oxygen at home #Altered mental status, improved Blood culture is negative, sputum culture pending Patient completed 5 days of antibiotic Continue with oxygen supplementation as needed Continue DuoNebs as scheduled and [id number] #ESRD on hemodialysis (Mondays, Wednesdays, Fridays) #Hyperkalemia #Hypomagnesemia, resolved #Volume overload #Hypervolemic hyponatremia #Anemia of the chronic kidney disease Nephrology on board, reviewed Hemodialysis today as per schedule today Continue Bumex 2 mg p.o. daily Renal diet Order CBC and CMP tomorrow a.m. Avoid nephrotoxic drugs Continue to hold losartan Replace magnesium as needed #New onset A-fib with the RVR Cardiology on board, note reviewed Patient on oral amiodarone Continue Lopressor 50 mg 3 times daily On Eliquis 5 mg p.o. twice daily Continue cardiac telemetry No plans for cardioversion at this time #Elevated NT-proBNP #Elevated troponin I likely secondary to type II NSTEMI Echocardiogram revealed ejection fraction of 60 to 65% with no regional wall abnormalities. Cardiology on board, note reviewed, amlodipine 5 mg twice daily added for optimal pressure control Continue with Bumex 2 g once daily #Hypertension Blood pressure continue to be soft Hold hypertensive medications #Hyperglycemia Start patient on Lantus 7 unit subcu morning Continue with sliding scale insulin Monitor for hypoglycemia #Transaminitis Continue to monitor Chronic: COPD/asthma: Resume currently under, Pulmicort GERD: Resume pantoprazole 40 mg once daily DVT prophylaxis: Subcu heparin GI prophylaxis: None F: None E: Replete as needed N: Heart healthy diet A: Ambulatory at baseline CODE STATUS: Full code Discussed with: Patient Anticipated discharge place: Pending clinical course Dictation was produced using [email or web address] dictation software. Please excuse any grammatical, word or spelling errors. Objective - Vital Signs Vital signs: Vital Signs Temp 98 F 07/19/24 12:05 Pulse 110 H 07/19/24 16:18 Resp 14 07/19/24 16:18 BP 102/54 07/19/24 16:18 Pulse Ox 98 07/19/24 16:18 FiO2 32 07/15/24 20:40 Intake & Output 07/18/24 07/19/24 07/19/24 18:59 06:59 18:59 Intake Total 354 20 240 Output Total 1 Balance 354 19 240 Weight 89 kg Intake: IV 20 Invasive Line 5 20 Oral 354 240 Output: Stool 1 Other: Voiding Method Diaper Diaper Incontinent Incontinent # Voids 0 1 # Bowel Movements 1 1 0 - Labs CBC & Chem 7: 07/19/24 06:44 07/19/24 06:44 Labs: Abnormal Lab Results - Last 24 Hours (Table) 07/18/24 07/19/24 07/19/24 Range/Units 20:17 06:44 06:44 RBC 3.44 L (4.10-5.20) 10*6/uL Hgb 9.9 L (12.0-15.0) g/dL Hct 30.9 L (37.2-46.3) % Immature Gran # 0.05 H (0.00-0.04) 10*3/uL Lymphocytes # 0.72 L (0.90-5.00) 10*3/uL Sodium 128 L (137-145) mmol/L Chloride 89 L (98-107) mmol/L BUN 85 H (7-17) mg/dL Creatinine 5.48 H (0.52-1.04) mg/dL Glucose 101 H (74-99) mg/dL POC Glucose (mg/dL) 197 H (70-110) mg/dL 07/19/24 07/19/24 Range/Units 11:24 16:14 RBC (4.10-5.20) 10*6/uL Hgb (12.0-15.0) g/dL Hct (37.2-46.3) % Immature Gran # (0.00-0.04) 10*3/uL Lymphocytes # (0.90-5.00) 10*3/uL Sodium (137-145) mmol/L Chloride (98-107) mmol/L BUN (7-17) mg/dL Creatinine (0.52-1.04) mg/dL Glucose (74-99) mg/dL POC Glucose (mg/dL) 138 H 137 H (70-110) mg/dL
[2024-07-19 20:33] LABS: Glucose,Whole Blood 248 mg/dL (70-110)
[2024-07-20 06:14] LABS: Glucose,Whole Blood 146 mg/dL (70-110)
[2024-07-20 08:27] VITALS: RESP 14
[2024-07-20 11:20] LABS: Glucose,Whole Blood 213 mg/dL (70-110)
[2024-07-20 11:30] VITALS: BP 128/74; TEMP 98.3
--- NOTE | 2024-07-20 12:17 | P.PN ---
Subjective Patient is seen for follow-up for end-stage renal disease. Scheduled for hemodialysis in a.m. No significant shortness of breath. Objective - Vital Signs Vital signs: Vital Signs Temp 98.3 F 07/20/24 11:29 Pulse 115 H 07/20/24 11:38 Resp 14 07/20/24 11:29 BP 128/74 07/20/24 11:29 Pulse Ox 96 07/20/24 11:29 FiO2 32 07/15/24 20:40 Intake & Output 07/19/24 07/20/24 07/20/24 18:59 06:59 18:59 Intake Total 640 118 Output Total 4400 Balance -3760 118 Weight 87 kg Intake: Oral 240 118 Hemodialysis 400 Output: Hemodialysis 2400 Hemodialysis Net Amount 2000 Other: Voiding Method Diaper Diaper Incontinent Incontinent # Voids 0 # Bowel Movements 0 0 1 - Exam Patient is awake, comfortable, no acute distress Examination of lower extremities shows chronic skin changes with trace edema - Labs CBC & Chem 7: 07/19/24 06:44 07/19/24 06:44 Labs: Abnormal Lab Results - Last 24 Hours (Table) 07/19/24 07/19/24 07/20/24 Range/Units 16:14 20:32 06:12 POC Glucose (mg/dL) 137 H 248 H 146 H (70-110) mg/dL 07/20/24 Range/Units 11:19 POC Glucose (mg/dL) 213 H (70-110) mg/dL Assessment and Plan Assessment: 1. End-stage renal disease maintained on hemodialysis on Wednesday schedule. 2. Hyperkalemia secondary to chronic kidney disease. Resolved. Losartan held 3. Volume overload. Better with ultrafiltration. 4. Diabetes mellitus. 5. Hypertension with chronic kidney disease. 6. Chronic kidney disease mineral bone disease. 7. Mild to moderate mitral stenosis noted on echocardiogram. Preserved EF. 8. A-fib with RVR status post amiodarone drip. Cardiology following. Plan: Continue with Bumex Hemodialysis in a.m. Patient can be dialyzed tomorrow as outpatient if she is discharged today.
--- NOTE | 2024-07-20 13:18 | P.DS ---
Providers Date of admission: 07/10/24 05:08 Attending physician: Ej Gordillo Consults: 07/10/24 05:06 Consult Physician Routine Consulting Provider: Uday Montalvo Consult Reason/Comments: CKD Do you want consulting provider notified?: Yes Primary care physician: Physician Nonstaff Hospital Course: Discharge Diagnosis: #Community-acquired pneumonia, patient completed course of IV antibiotic #Acute hypoxic respiratory failure, resolved, patient at her baseline respiratory status #Altered mental status, resolved #ESRD on hemodialysis #Elevated troponin likely type II NSTEMI Hospital Course: Patient is a 69-year-old female with a history of multiple comorbidities including ESRD on hemodialysis on Mondays, Wednesdays and Fridays was brought to the ER via EMS from [facility] with complaints of altered mental status and hypertension since yesterday. Chest x-ray done in the ER shows concern for left-sided pleural effusion with pneumonia. Patient was started on IV levofloxacin. Patient reports that she has been feeling mild shortness of breath but no cough. Patient denies any sick contacts. Patient denies chest pain, fever, chills, nausea, vomiting but admits to being generally weak and fatigued. Her lab work in the ER shows WBC 17.92, hemoglobin 13.1, platelet count 136, neutrophil count 16.72, sodium 134, potassium 6.3, chloride 93, BUN 37, creatinine 6.07, glucose 260, lactic acid 1.6, EGFR 7, magnesium 1.3, AST 50, ALT 48, troponin I 0.144, repeat troponin I 0.174, NT proBNP 57482. Vital signs on arrival shows temperature 98.2 F, pulse rate 64, respirate 18, blood pressure 164/63, oxygen saturation 94% on 2 L via nasal cannula. EKG shows ventricular rate of 61 bpm, ID interval 169 ms, QRS duration of 100 ms, QTc of 462. Nonspecific ST-T wave changes noted. Tall T waves noted diffusely. Infectious disease, nephrology and cardiology were consulted. Patient had hemodialysis sessions as scheduled as well as some additional sessions as well. Infectious disease was consulted for community-acquired pneumonia patient was started on IV antibiotic and she completed course before discharge. Subsequent chest x-ray shows no signs of focal consolidation indicating pneumonia. Vital signs as well as lab work was unremarkable for infection. However she was volume overloaded throughout her course of her hospitalization course and continue to receive hemodialysis. Patient also had A-fib with RVR which was new in onset and cardiology was already on board she got started on a amiodarone. Patient is also on beta-violeta. There is also concern for aspiration and dysphagia. Speech therapist consulted and swallowing evaluation was contacted which was normal and barium swallow test was negative. Patient is otherwise hemodynamically stable and medically optimized for discharge. Patient to be discharged on amiodarone 200 mg p.o. daily, Eliquis 5 mg p.o. twice daily, Lantus 10 units at bedtime, Lopressor 50 mg 3 times daily. Patient is to follow-up with PCP and cardiology and continue with hemodialysis as per schedule. Discharge disposition: Subacute rehab Vital signs reviewed. Physical examination: Vital signs reviewed General: non toxic, no distress, appears at stated age, overweight Derm: no unusual rashes/lesions, warm, AV fistula on the left arm functioning well, venous stasis dermatitis bilaterally Head: atraumatic, normocephalic, symmetric Eyes: EOMI, no lid lag, anicteric sclera, pupils equal round reactive to light ENT: Nose and ears atraumatic Neck: No cervical lymphadenopathy, trachea midline, supple Mouth: no lip lesion, mucus membranes moist Cardiovascular: S1S2 reg, no murmur, positive dorsalis pedis pulse bilateral, 2+ pitting edema Lungs: Bilateral crackles noted, no rhonchi, no rales, no accessory muscle use Abdominal: soft, nontender to palpation, no guarding Ext: muscle strength 5 out of 5 in all 4 extremities grossly, no gross muscle atrophy, no contractures, Neuro: CN II-XI grossly intact, no gross focal neuro deficits Psych: Alert, oriented, appropriate affect Dictation was produced using [email or web address] dictation software. Please excuse any grammatical, word or spelling errors. Patient Condition at Discharge: Fair Plan - Discharge Summary New Discharge Prescriptions: New Amiodarone [Cordarone] 200 mg PO DAILY #30 tab Apixaban [Eliquis] 5 mg PO BID #60 tab Insulin Glargine (Lantus) [Lantus Vial] 10 unit SQ DAILY@0700 #30 each Metoprolol Tartrate [Lopressor] 50 mg PO TID #90 tab Continue Aspirin EC [Ecotrin Low Dose] 81 mg PO DAILY@0500 Bumetanide [BUMEX] 5 mg PO DAILY@0500 Acetaminophen Tab [Tylenol] 650 mg PO Q6H PRN PRN Reason: Pain Ipratropium-Albuterol Nebulize [Duoneb 0.5 mg-3 mg/3 ml Soln] 3 ml INHALATION RT-QID Budesonide 2 ml INHALATION RT-BID Pantoprazole Sodium [Protonix] 40 mg PO DAILY@0500 Albuterol Inhaler [Ventolin Hfa Inhaler] 2 puff INHALATION RT-Q6H PRN PRN Reason: Shortness Of Breath Atorvastatin [Lipitor] 20 mg PO HS Citalopram Hydrobromide [CeleXA] 20 mg PO HS Folic Acid/Vit B Complex and C [Yina-Hanna Tablet] 1 tab PO DAILY@1700 Amino Acids/Protein Hydrolys [Pro-Stat Awc Liquid] 30 ml PO DAILY Discontinued carvediloL [Coreg] 12.5 mg PO BID Losartan [Cozaar] 50 mg PO HS Discharge Medication List Aspirin EC [Ecotrin Low Dose] 81 mg PO DAILY@0500 09/19/15 [History] Albuterol Inhaler [Ventolin Hfa Inhaler] 2 puff INHALATION RT-Q6H PRN 10/29/22 [History] Atorvastatin [Lipitor] 20 mg PO HS 07/06/23 [History] Citalopram Hydrobromide [CeleXA] 20 mg PO HS 07/06/23 [History] Bumetanide [BUMEX] 5 mg PO DAILY@0500 01/07/24 [History] Acetaminophen Tab [Tylenol] 650 mg PO Q6H PRN 06/14/24 [History] Budesonide 2 ml INHALATION RT-BID 06/14/24 [History] Folic Acid/Vit B Complex and C [Yina-Hanna Tablet] 1 tab PO DAILY@1700 06/14/24 [History] Ipratropium-Albuterol Nebulize [Duoneb 0.5 mg-3 mg/3 ml Soln] 3 ml INHALATION RT-QID 06/14/24 [History] Pantoprazole Sodium [Protonix] 40 mg PO DAILY@0500 06/14/24 [History] Amino Acids/Protein Hydrolys [Pro-Stat Awc Liquid] 30 ml PO DAILY 07/10/24 [History] Amiodarone [Cordarone] 200 mg PO DAILY #30 tab 07/20/24 [Rx] Apixaban [Eliquis] 5 mg PO BID #60 tab 07/20/24 [Rx] Insulin Glargine (Lantus) [Lantus Vial] 10 unit SQ DAILY@0700 #30 each 07/20/24 [Rx] Metoprolol Tartrate [Lopressor] 50 mg PO TID #90 tab 07/20/24 [Rx] Follow up Appointment(s)/Referral(s): Dagoberto Shearer MD [STAFF PHYSICIAN] - 1 Week Nonstaff,Physician [Primary Care Provider] - 1-[address] [facility], [NON-STAFF] - As Needed Patient Instructions/Handouts: A-fib (Atrial Fibrillation) (DC), Community Acquired Pneumonia (DC), End Stage Kidney Disease (DC) Activity/Diet/Wound Care/Special Instructions: Please follow-up with your PCP within 1 to 2 days. Follow-up with cardiology within 1 week. Discharge Disposition: TRANSFER TO SNF/ECF
[2024-07-20 15:39] VITALS: PULSE 106
== END 2024-07-20 16:28 | DRG 193 ==
LOC: EC 02:27 → 3SCARD 05:08 → 5NMEDONC 17:10 → 4SSUR 17:19 → 3SCARD 07-11 20:21
PROVIDERS: ADMIT Hospitalist; ATTEND Hospitalist
PROC: 5A09557 Assistance with Respiratory Ventilation, Greater than 96 Consecutive Hours, Continuous Positive Airway Pressure (ICD-10-PCS; principal; 2024-07-13)
DX: J18.9 Pneumonia, unspecified organism (principal); G93.41 Metabolic encephalopathy; I21.A1 Myocardial infarction type 2; N18.6 End stage renal disease; J96.21 Acute and chronic respiratory failure with hypoxia; I12.0 Hypertensive chronic kidney disease with stage 5 chronic kidney disease or end stage renal disease; E87.1 Hypo-osmolality and hyponatremia; D63.1 Anemia in chronic kidney disease; Z99.2 Dependence on renal dialysis; I69.354 Hemiplegia and hemiparesis following cerebral infarction affecting left non-dominant side; I27.20 Pulmonary hypertension, unspecified; E11.22 Type 2 diabetes mellitus with diabetic chronic kidney disease; J44.89 Other specified chronic obstructive pulmonary disease; F32.A Depression, unspecified; I05.0 Rheumatic mitral stenosis; E11.65 Type 2 diabetes mellitus with hyperglycemia; I48.0 Paroxysmal atrial fibrillation; I25.10 Atherosclerotic heart disease of native coronary artery without angina pectoris; E78.5 Hyperlipidemia, unspecified; K21.9 Gastro-esophageal reflux disease without esophagitis; F41.9 Anxiety disorder, unspecified; E83.42 Hypomagnesemia; E87.5 Hyperkalemia; M89.8X9 Other specified disorders of bone, unspecified site; E87.70 Fluid overload, unspecified; Z87.891 Personal history of nicotine dependence; Z79.899 Other long term (current) drug therapy; Z79.82 Long term (current) use of aspirin; Z79.01 Long term (current) use of anticoagulants; Z99.81 Dependence on supplemental oxygen
CPT/HCPCS: 36415; 71045; 74230; 80048; 80053; 82728; 83036; 83540; 83550; 83605; 83735; 83880; 83930; 84100; 84132; 84443; 84484; 85025; 85027; 85045; 85610; 85730; 87040; 87070; 87449; 90935; 93005; 93306; 94640; 94660; 94760; 96365; 96366; 96367; 96375; 99291